=== PATIENT | male | born 1940 | race Caucasian/White ===

== ENCOUNTER 2018-01-20 15:40 | Emergency (ER) | payer MEDICARE ==
[2018-01-20] MEDS ORDERED: Albuterol/Ipratropium NEB.SOL* Albuterol 2.5 MG/Ipratropium 0.5 MG 3 ML INH ONE (15:54)
--- OUTSIDE RECORDS SUMMARY | 2018-01-20 15:54 | XMS REPORT ---
:1940 External Reference #:[id number] Author Organization [facility] 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 Active Onset: 01/15/2012 Mixed hyperlipidemia Gal Stover M.D. Active Onset: 01/15/2012 Benign prostatic hypertrophy without Gal Stover M.D. Active outflow obstruction Onset: 01/15/2012 Low back pain Gal Stover M.D. Active Onset: 01/15/2012 Peptic reflux disease Gal Stover M.D. Active Onset: 01/16/2012 Allergic rhinitis Gal Stover M.D. 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 Active Onset: 10/03/2012 Osteoarthritis Gal Stover M.D. Active Onset: 10/03/2012 Chronic obstructive lung disease Gal Stover M.D. Active Onset: 03/29/2015 Chronic conjunctivitis Gal Stover M.D. Active Onset: 05/10/2015 Hearing loss Gal Stover M.D. Active Onset: 06/22/2015 Essential hypertension Gal Stover M.D. Active Family History Date Family Member(s) Problem(s) Comments Children None Siblings 4 First Sister 75 First Sister Unknown Second Sister 73 Second Sister Unknown Third Sister 70 Third Sister Cancer Fourth Sister heart issues Fourth Sister 65 Fourth Sister Obesity Social History Type Date Description Comments Marital Status Legal Status: Cigarette Use Current Cigarette Smoker pt has been smoking a pack a day for 50 years ETOH Use Occasionally consumes alcohol Smoking Patient is a current smoker, smokes every day Daily Caffeine Consumes on average 2 cups of regular coffee per day Allergies, Adverse Reactions, Alerts Date Description Reaction Status Severity Comments 07/19/2012 Sulfa Antibiotics active 10/07/2014 Tobramycin active 01/16/2012 NKDA inactive 01/16/2012 NKDA inactive Medications Medication Date Status Form Strength Qnty SIG Indications Ordering Provider Augmentin 01/15/ Hx Tablets 875-125mg 20tabs 1 tab by J20.9 Ck, 2018 - mouth Gal Gutiérrez, 01/24/ twice a M.D. 2018 day Prednisone 12/20/ Active Tablets 20mg 90tabs 40 mg by J44.9 Ck, 2018 mouth Gal Gutiérrez, daily 4 M.D. days,30 mGx3d,20 mgx2d, Then 10 MG Daily Betamethasone 12/05/ Active Cream 0.05% 45gm apply to L20.9 Ck Dipropionate 2018 affected Gal Gutiérrez, area ( M.D. Face) three times a day as needed Simvastatin 03/27/ Active Tablets 40mg 90tabs 1 by mouth E78.2 Ck, 2017 every Ahmad M., night M.D. Metoprolol 11/16/ Active Tablets 100mg 180tab 1 tab by I10 Ck Tartrate 2017 s mouth Gal Gutiérrez, every day Nelly Combivent 10/02/ Active Aerosol 20-100mcg/ 12gm 1 by mouth R06.02 Ck , Respimat 2017 Act four times Gal Gutiérrez, a day Nelly J44.1 R05 Naproxen 07/11/2016 Active Tablets 500mg 60tabs 1 tab by Ck, Ahmad mouth twice a M., MLuisDLuis day as needed Losartan 03/31/2014 Active Tablets 100-25mg 90tabs tab one by I10 Gal Stover Potassium/Hydr mouth every M.Nelly ochlorothiazid in the e morning R60.0 I87.2 Amlodipine 01/16/2012 Active Tablets 10mg 90tabs 1 by mouth I10 Ck, Besylate every day Gal Gutiérrez M.D. Omeprazole 01/16/[address] 20mg 90caps 1 by mouth K21.0 Ck, every day Gal Gutiérrez M.D. K30 Aspir-81 01/16/[address] 81mg 1 by mouth I10 Ck, every morning Gal Gutiérrez M.D. Augmentin 12/20/2017 - Hx Tablets 875-125 20t 1 tab by mouth Chacho Stover, 12/30/2017 mg abs twice a day Gal Gutiérrez M.D. Ceftriaxone 12/20/2017 - Hx Solution 1gm injection Chacho Stover, Sodium 12/21/2017 Rec intramuscular r Gal buttock x1 Nelly Gutiérrez Solu-Medrol 12/20/2017 - Hx Solution 125mg 1un given iv Chacho Stover, 12/21/2017 Rec its Gal Gutiérrez M.D. Keflex 12/05/2017 - Hx Capsules 500mg 30c 1 by mouth Chacho Stover, 12/15/2017 aps three times a Ahmad day Nelly Gutiérrez Prednisone 12/05/2017 - Hx Tablets 20mg 18t 3 tab by mouth Chacho Stover, 12/14/2017 abs daily 3 days, Ahmad then 2 tab Nelly Gutiérrez daily x 3 d , then 1 tab daily 3d Ciprofloxacin 06/25/2017 - Hx Tablets 500mg 20t tab one by J20.9 [facility], HCL 07/05/2017 abs mouth twice a Ahmad day Nury Gutiérrez. Gentamicin 06/25/2017 - Hx Solution 0.3% 10c 2 drops both H10.8 Ck, Sulfate 09/17/2017 c eyes three 9 Ahmad times a day for Nelly Gutiérrez 5-7 days Fluconazole 04/06/2017 - Hx Tablets 100mg 20t [address] [facility], 04/16/2017 abs twice a day Ahmad Nury Gutiérrez. Levofloxacin 03/26/2017 - Hx Tablets 500mg 10t tab 1 by mouth [address].9 [facility], 04/05/2017 abs every day Gal Gutiérrez M.D. Prednisone 03/26/2017 - Hx Tablets 10mg 18t tab one by J20.9 [facility], 09/17/2017 abs mouth three Ahmad times a day x 3 Nelly Gutiérrez days; tab one by mouth twice a day x 3 days; tab one by mouth every day x 3 days R06.2 R06.02 Soma 07/11/2016 - Hx Tablets 350mg 60tabs [address] [facility], 09/17/2016 mouth twice Ahmad M., a day as M.D. needed Prednisone 07/11/2016 - Hx Tablets 20mg 18tabs [address] [facility], 07/21/2016 mouth daily Ahmad MLuis, 3 days, M.D. then 2 tab daily x 3 d , then 1 tab daily 3d Advair Diskus 04/27/2016 - Hx Aerosol 250-50mcg/ 3Mdi [address] [facility], 09/17/2016 Dose twice a day 2 aGl Gutiérrez M.D. J44.1 R05 Prednisone 12/10/2015 - Hx Tablets 20mg 50tabs 2 tab by mouth daily [address] [facility], 12/26/2015 days,30x3d,20x2d,10x7d Gal Gutiérrez M.D. J20.9 Ciprodex 07/26/2015 - Hx Suspension 0.3-0.1% 7.500ml 2 drops H10.023 Ck, 07/26/2015 both Ahmad M., eyes M.D. three times a day Ciprofloxacin 07/26/2015 - Hx Solution 0.3% 10ml [address] [facility], HCL 07/30/2015 drops Ahmad M., both M.D. eyes three times a day Prednisone 07/19/2015 - Hx Tablets 20mg 50tabs 2 tab by R06.02 Ck, 08/04/2015 mouth Ahmad M., daily 4 M.D. days,30x 3d,20x2d ,10x7d J44.9 Amoxicillin/Clavulanate 07/19/2015 - Hx Tablets 875-125mg 20tabs 1 tab by Kc, Potassium 12/20/2015 mouth Ahmad twice a M., M.D. day Acetaminophen-Codeine #3 07/19/2015 - Hx Tablets 300-30mg 90tabs [address] [facility], 09/17/2016 mouth 5 Ahmad every 4 M., M.D. hours as needed Amoxicillin 06/22/2015 - Hx Tablets 500mg 40tabs [address] [facility], 07/02/2015 mouth 1. Ahmad twice a 41 M., M.D. day J44.9 Prednisone 06/22/2015 - Hx Tablets 20mg 8tabs [address] [facility], Ahmad 07/08/2015 mouth daily 4 M., M.D. days J44.9 Amoxicillin 03/29/2015 - Hx Tablets 500mg 40tabs [address] [facility] , Ahmad 04/08/2015 twice a day M., M.D. 461.8 Prednisone 03/29/2015 - Hx Tablets 20mg 50tabs 2 tab by mouth daily [address] [facility], 04/14/2015 days,30x3d,20x2d,10x7d Ahmad M., M.D. 786.05 461.8 Amoxicillin 12/29/2014 - Hx Tablets 500mg 40tabs [address] [facility] , 01/08/2015 twice a Ahmad M., day M.D. Vitamin D3 High 10/12/2014 - Hx Capsules 1000Unit OTC tab one by E55.9 [facility], Potency 09/17/2016 mouth Ahmad M., every day M.D. Tobramycin 10/01/2014 - Hx Solution 0.3% 5ml 2 drops 372.39 Ck, 10/07/2014 both eyes Ahmad M., three M.D. times a day Cheratussin ac 08/26/2013 - Hx Syrup 100-10mg/ 500ml [address] [facility], 09/11/2013 5ML mouth Ahmad M., every 4 M.D. hours as needed Combivent 08/26/2013 - Hx Aerosol 20-100mcg 4units [address] [facility], Respimat 04/27/2016 /Act four times Gal Bui., a day M.D. J44.1 R05 Prednisone 07/31/2013 - Hx Tablets 20mg 20tabs 2 tab by mouth daily [address] [facility], 08/16/2013 days,30x3d,20x2d,10x7d Gal Gutiérrez M.D. 786.05 461.8 Biaxin 10/03/2012 - Hx Tablets 500mg 20tabs 1 tab by mouth 461.8 [facility] a day Hao.MarlaDLuis x10 days 491.21 462 Prednisone 10/03/2012 - Hx Tablets 20mg 8tabs 2 tab by 786.05 Ck, [facility] mouth daily 4 M., M.D. days 478.19 491.21 Instaflex 07/19/2012 - 10/03/2011 Hx 1 PO qd 724.2 CkGal hercules M.D. 715.90 Biaxin 07/19/2012 - Hx Tablets 500mg 20tabs 1 tab by mouth 466.0 Ck , [facility] 07[facility]29[facility]2012 twice a day Marla MLuisDLuis x10 days 461.8 382.9 Prednisone 07/19/2012 - Hx Tablets 20mg 50tabs 2 tab by mouth daily 4 466.0 Ck, 03/17/2014 days,30x3d,20x2d,10x7d Gal Gutiérrez M.D. 786.05 461.8 Combivent 07/19/2012 - Hx Aerosol 18-103mcg/Act 14.700gm 2 four 786.05 Ck, 08/26/2013 times a Gal Gutiérrez, day M.D. 491.21 786.2 Folic Acid 07/04/2012 - Hx Tablets 800mcg 30tabs 1 po qd 477.8 Ck, Trentmad 10/03/2011 Nelly Gutiérrez 530.11 Vitamin B-12 07/04/2012 - Hx Tablets 500mcg 1 by mouth 401.1 Ck, Ahmad 10/03/2011 every day Nelly Gutiérrez Natural 272.2 281.1 Zithromax 04/17/2012 - Hx Tablets 250mg 1Pack 1 pack use 461.8 Ck, Z-Markell 04/22/2012 as directed Gal Gutiérrez M.D. Tobramycin 01/16/2012 - Hx Solution 0.3% 5ml 2 drop both 372.30 Ck, Sulfate 01/26/2012 eyes bid 7 Gal Gutiérrez, days M.D. Simvastatin 01/16/2012 - Hx Tablets 80mg 90tabs 1 tab by E78.2 Ck, 03/27/2017 mouth every Gal Gutiérrez, night M.D. Losartan 01/16/2012 - Hx Tablets 100mg 90tabs 1 by mouth 401.1 Ck, Potassium 03/31/2014 every day Gal Gutiérrez M.D. Metoprolol 01/16/2012 - Hx Tablets 100mg 180tabs 1 by mouth I10 Ck, Tartrate 11/16/2016 twice a day Gal Gutiérrez M.D. Loratadine 01/16/2012 - Hx Tablets 10mg 477.8 Ck, Allergy Relief 10/03/2011 Dispers Gal Gutiérrez M.D. Tobradex - Hx Ointment 0.3-0.1% 372.39 Unknown 03/22/2015 Medications Administered in Office Medication Date Status Form Strength Qnty SIG Indications Ordering Provider Solu-Medrol Administered Injection Ck, 125MG 018 Gal Gutiérrez M.D. Rocephin 250 Administered Injection Ck, 018 Gal Gutiérrez M.D. Admin Of Administered Injection Ck, Pneumovax 015 Gal Gutiérrez M.D. B12 Administered Injection Ck, 011 Gal Gutiérrez M.D. Immunizations CPT Code Status Date Vaccine Lot # [id number] Given 07/11/2016 Flu Vaccine 3+Yrs Old(Fluzone) 32293 Given 12/02/2015 Zoster Shingles Vaccine For Injection [id number] Given 08/19/2015 Flu Vaccine 3+Yrs Old(Fluzone) 42820 Given 08/19/2015 Pneumovax [id number] 28984 Given 08/19/2015 Flu Vaccine [id number] 07138 Given 06/27/2014 Flu Vaccine [id number] Given 07/31/2013 Flu Vaccine 3+Yrs Old(Fluzone) [id number] Given 07/04/2012 Flu Vaccine 3+Yrs Old(Fluzone) [id number] 60542 Given 09/16/2009 Admin Of Influenza [id number] Given 08/08/2006 Flu Vaccine 58775 Given 07/31/2003 Pneumovax [id number] Vital Signs Date Vital Result Comment 01/15/2018 BP Systolic 128 mmHg BP Diastolic 58 mmHg Height 68 inches 5'8" Weight 155.00 lb BMI (Body Mass Index) 23.6 kg/m2 Heart Rate 69 /min Body Temperature 97.0 F Respiratory Rate 18 /min 12/20/2017 BP Systolic 124 mmHg BP Diastolic 60 mmHg Height 68 inches 5'8" Weight 162.00 lb BMI (Body Mass Index) 24.6 kg/m2 Heart Rate 64 /min Body Temperature 96.8 F Respiratory Rate 18 /min 12/13/2017 BP Systolic 118 mmHg BP Diastolic 70 mmHg Height 68 inches 5'8" Weight 162.00 lb BMI (Body Mass Index) 24.6 kg/m2 Heart Rate 72 /min Body Temperature 96.3 F Respiratory Rate 16 /min 12/05/2017 BP Systolic 126 mmHg BP Diastolic 58 mmHg Height 68 inches 5'8" Weight 157.00 lb BMI (Body Mass Index) 23.9 kg/m2 Heart Rate 66 /min Respiratory Rate 18 /min 09/19/2017 BP Systolic 130 mmHg BP Diastolic 70 mmHg Height 68 inches 5'8" Weight 156.00 lb BMI (Body Mass Index) 23.7 kg/m2 Heart Rate 76 /min Respiratory Rate 18 /min 06/25/2017 Weight 157.00 lb 04/06/2017 BP Systolic 130 mmHg BP Diastolic 56 mmHg Height 68 inches 5'8" Weight 156.00 lb BMI (Body Mass Index) 23.7 kg/m2 Heart Rate 56 /min Respiratory Rate 16 /min 03/26/2017 BP Systolic 140 mmHg BP Diastolic 69 mmHg Height 68 inches 5'8" Weight 156.00 lb BMI (Body Mass Index) 23.7 kg/m2 Heart Rate 72 /min Body Temperature 98.8 F Respiratory Rate 16 /min 03/23/2017 BP Systolic 112 mmHg BP Diastolic 58 mmHg Height 68 inches 5'8" Weight 156.00 lb BMI (Body Mass Index) 23.7 kg/m2 Heart Rate 71 /min Respiratory Rate 16 /min 11/16/2016 BP Systolic 134 mmHg BP Diastolic 68 mmHg Height 68 inches 5'8" Weight 158.00 lb BMI (Body Mass Index) 24.0 kg/m2 Heart Rate 63 /min Respiratory Rate 16 /min 09/22/2016 BP Systolic 122 mmHg BP Diastolic 64 mmHg Height 68 inches 5'8" Weight 164.00 lb BMI (Body Mass Index) 24.9 kg/m2 Heart Rate 63 /min Respiratory Rate 18 /min 07/11/2016 BP Systolic 132 mmHg BP Diastolic 66 mmHg Height 68 inches 5'8" Weight 162.00 lb BMI (Body Mass Index) 24.6 kg/m2 Heart Rate 76 /min Respiratory Rate 20 /min 04/27/2016 BP Systolic 126 mmHg BP Diastolic 62 mmHg Height 68 inches 5'8" Weight 158.00 lb BMI (Body Mass Index) 24.0 kg/m2 Heart Rate 76 /min Respiratory Rate 20 /min 03/30/2016 BP Systolic 128 mmHg BP Diastolic 52 mmHg Height 68 inches 5'8" Weight 156.00 lb BMI (Body Mass Index) 23.7 kg/m2 Heart Rate 76 /min Respiratory Rate 17 /min 02/03/2016 BP Systolic 108 mmHg BP Diastolic 50 mmHg Height 68 inches 5'8" Weight 160.00 lb BMI (Body Mass Index) 24.3 kg/m2 Heart Rate 66 /min Respiratory Rate 20 /min 12/10/2015 BP Systolic 117 mmHg BP Diastolic 64 mmHg Height 68 inches 5'8" Weight 165.00 lb BMI (Body Mass Index) 25.1 kg/m2 Heart Rate 65 /min Body Temperature 97.3 F Respiratory Rate 18 /min 09/24/2015 BP Systolic 121 mmHg BP Diastolic 56 mmHg Height 68 inches 5'8" Weight 162.00 lb BMI (Body Mass Index) 24.6 kg/m2 Heart Rate 62 /min Respiratory Rate 18 /min 08/19/2015 BP Systolic 131 mmHg BP Diastolic 71 mmHg Height 68 inches 5'8" Weight 158.00 lb BMI (Body Mass Index) 24.0 kg/m2 Heart Rate 55 /min Respiratory Rate 18 /min 07/26/2015 BP Systolic 121 mmHg BP Diastolic 68 mmHg Height 68 inches 5'8" Weight 155.00 lb BMI (Body Mass Index) 23.6 kg/m2 Heart Rate 61 /min Body Temperature 96.6 F Respiratory Rate 18 /min 07/19/2015 BP Systolic 133 mmHg BP Diastolic 66 mmHg Height 68 inches 5'8" Weight 156.00 lb BMI (Body Mass Index) 23.7 kg/m2 Heart Rate 81 /min Body Temperature 98.2 F Respiratory Rate 18 /min 06/22/2015 BP Systolic 128 mmHg BP Diastolic 66 mmHg Height 68 inches 5'8" Weight 158.00 lb BMI (Body Mass Index) 24.0 kg/m2 Heart Rate 76 /min Body Temperature 95.0 F Respiratory Rate 18 /min 05/25/2015 BP Systolic 116 mmHg BP Diastolic 58 mmHg Height 68 inches 5'8" Weight 158.00 lb BMI (Body Mass Index) 24.0 kg/m2 Heart Rate 62 /min Respiratory Rate 17 /min 05/10/2015 BP Systolic 131 mmHg BP Diastolic 69 mmHg Height 68 inches 5'8" Weight 156.00 lb BMI (Body Mass Index) 23.7 kg/m2 Heart Rate 57 /min Body Temperature 97.2 F Respiratory Rate 14 /min 03/29/2015 BP Systolic 143 mmHg BP Diastolic 65 mmHg Height 68 inches 5'8" Weight 157.00 lb BMI (Body Mass Index) 23.9 kg/m2 Heart Rate 60 /min Body Temperature 97.5 F Respiratory Rate 20 /min 12/29/2014 BP Systolic 129 mmHg BP Diastolic 73 mmHg Height 68 inches 5'8" Weight 155.00 lb BMI (Body Mass Index) 23.6 kg/m2 Heart Rate 63 /min Body Temperature 97.4 F Respiratory Rate 16 /min 10/07/2014 BP Systolic 152 mmHg BP Diastolic 67 mmHg BP Systolic Recheck 142 mmHg BP Diastolic Recheck 68 mmHg Height 68 inches 5'8" Weight 161.00 lb BMI (Body Mass Index) 24.5 kg/m2 Heart Rate 69 /min Respiratory Rate 15 /min 10/01/2014 BP Systolic 144 mmHg BP Diastolic 68 mmHg Height 68 inches 5'8" Weight 164.00 lb BMI (Body Mass Index) 24.9 kg/m2 Heart Rate 59 /min Body Temperature 96.2 F Respiratory Rate 20 /min 09/23/2014 BP Systolic 131 mmHg BP Diastolic 63 mmHg Height 68 inches 5'8" Weight 166.00 lb BMI (Body Mass Index) 25.2 kg/m2 Heart Rate 58 /min Respiratory Rate 12 /min 05/07/2014 BP Systolic 129 mmHg BP Diastolic 69 mmHg Height 68 inches 5'8" Weight 162.00 lb BMI (Body Mass Index) 24.6 kg/m2 Heart Rate 57 /min Respiratory Rate 20 /min 04/14/2014 BP Systolic 128 mmHg BP Diastolic 70 mmHg Height 68 inches 5'8" Weight 166.00 lb BMI (Body Mass Index) 25.2 kg/m2 Heart Rate 61 /min Body Temperature 96.1 F Respiratory Rate 20 /min 04/03/2014 BP Systolic 133 mmHg BP Diastolic 68 mmHg Height 68 inches 5'8" Weight 168.00 lb BMI (Body Mass Index) 25.5 kg/m2 Heart Rate 60 /min Respiratory Rate 20 /min 03/31/2014 BP Systolic 149 mmHg BP Diastolic 69 mmHg Height 68 inches 5'8" Weight 168.00 lb BMI (Body Mass Index) 25.5 kg/m2 Heart Rate 62 /min Body Temperature 96.1 F Respiratory Rate 22 /min 11/18/2013 BP Systolic 162 mmHg BP Diastolic 76 mmHg Height 68 inches 5'8" Weight 160.00 lb BMI (Body Mass Index) 24.3 kg/m2 Heart Rate 67 /min Body Temperature 96.9 F 09/24/2013 BP Systolic 136 mmHg BP Diastolic 58 mmHg Height 68 inches 5'8" Weight 160.00 lb BMI (Body Mass Index) 24.3 kg/m2 Heart Rate 67 /min Respiratory Rate 20 /min 08/26/2013 BP Systolic 145 mmHg BP Diastolic 69 mmHg Height 68 inches 5'8" Weight 161.00 lb BMI (Body Mass Index) 24.5 kg/m2 Heart Rate 59 /min Body Temperature 98.1 F Respiratory Rate 22 /min 07/31/2013 BP Systolic 144 mmHg BP Diastolic 65 mmHg Height 68 inches 5'8" Weight 163.00 lb BMI (Body Mass Index) 24.8 kg/m2 Heart Rate 66 /min Body Temperature 97.1 F Respiratory Rate 22 /min 04/07/2013 BP Systolic 146 mmHg BP Diastolic 78 mmHg Height 68 inches 5'8" Weight 165.00 lb BMI (Body Mass Index) 25.1 kg/m2 Heart Rate 59 /min Respiratory Rate 20 /min 10/17/2012 BP Systolic 122 mmHg BP Diastolic 62 mmHg Height 68 inches 5'8" Weight 168.00 lb BMI (Body Mass Index) 25.5 kg/m2 Heart Rate 67 /min Respiratory Rate 18 /min 10/03/2012 BP Systolic 140 mmHg BP Diastolic 70 mmHg Height 68 inches 5'8" Weight 167.00 lb BMI (Body Mass Index) 25.4 kg/m2 Heart Rate 73 /min Body Temperature 96.9 F Respiratory Rate 14 /min 07/19/2012 BP Systolic 142 mmHg BP Diastolic 64 mmHg Height 68 inches 5'8" Weight 165.00 lb BMI (Body Mass Index) 25.1 kg/m2 Heart Rate 60 /min Respiratory Rate 12 /min 07/04/2012 BP Systolic 140 mmHg BP Diastolic 64 mmHg Height 68 inches 5'8" Weight 166.00 lb BMI (Body Mass Index) 25.2 kg/m2 Heart Rate 62 /min Respiratory Rate 16 /min 04/17/2012 BP Systolic 158 mmHg BP Diastolic 72 mmHg Height 68 inches 5'8" Weight 160.00 lb BMI (Body Mass Index) 24.3 kg/m2 Last Menstrual Period 0 Respiratory Rate 14 /min 04/04/2012 BP Systolic 145 mmHg BP Diastolic 78 mmHg Height 68 inches 5'8" Weight 160.00 lb BMI (Body Mass Index) 24.3 kg/m2 Heart Rate 80 /min Last Menstrual Period 0 Respiratory Rate 14 /min 01/16/2012 BP Systolic 180 mmHg BP Diastolic 90 mmHg BP Systolic Recheck 158 mmHg BP Diastolic Recheck 77 mmHg Height 68 inches 5'8" Weight 162.00 lb BMI (Body Mass Index) 24.6 kg/m2 Heart Rate 76 /min Last Menstrual Period 0 Respiratory Rate 14 /min Results Test Date Test Result H/L Range Note CBC Auto Diff 12/13/2017 White Blood Count 15.5 10^3/uL High 3.5-10.8 Red Blood Count 5.14 10^6/uL 4.0-5.4 Hemoglobin 16.1 g/dL 14.0-18.0 Hematocrit 48 % 42-52 Mean Corpuscular Volume 93 fL 80-94 Mean Corpuscular Hemoglobin 31 pg 27-31 Mean Corpuscular HGB Conc 34 g/dL 31-36 Red Cell Distribution Width 14 % 10.5-15 Platelet Count 287 10^3/uL 150-450 1 Mean Platelet Volume 6.8 um3 Low 7.4-10.4 Abs Neutrophils 13.6 10^3/uL High 1.5-7.7 Abs Lymphocytes 1.3 10^3/uL 1.0-4.8 Abs Monocytes 0.6 10^3/uL 0-0.8 Abs Eosinophils 0 10^3/uL 0-0.6 Abs Basophils 0 10^3/uL 0-0.2 Abs Nucleated RBC 0 10^3/uL Granulocyte % 87.6 % High 38-83 Lymphocyte % 8.1 % Low 25-47 Monocyte % 4.2 % 0-7 Eosinophil % 0 % 0-6 Basophil % 0.1 % 0-2 Nucleated Red Blood Cells % 0.1 Comp Metabolic Panel 12/13/2017 Sodium 137 mmol/L Low 139-145 Potassium 3.7 mmol/L 3.5-5.0 Chloride 98 mmol/L Low 101-111 Co2 Carbon Dioxide 27 mmol/L 22-32 Anion Gap 12 mmol/L High 2-11 Glucose 114 mg/dL High 70-100 Blood Urea Nitrogen 23 mg/dL 6-24 Creatinine 0.90 mg/dL 0.67-1.17 BUN/Creatinine Ratio 25.6 High 8-20 Calcium 10.0 mg/dL 8.6-10.3 Total Protein 7.1 g/dL 6.4-8.9 Albumin 4.3 g/dL 3.2-5.2 Globulin 2.8 g/dL 2-4 Albumin/Globulin Ratio 1.5 1-3 Total Bilirubin 1.20 mg/dL High 0.2-1.0 Alkaline Phosphatase 50 U/L 34-104 Alt 25 U/L 7-52 Ast 25 U/L 13-39 Egfr Non- 81.8 >60 Egfr 105.2 >60 2 Laboratory test finding 12/13/2017 Erythrocyte Sed Rate 5 mm/Hr 0-40 3 Lyme Disease Serology Negative Negative 4 CBC Auto Diff 09/19/2017 White Blood Count 8.6 10^3/uL 3.5-10.8 Red Blood Count 4.81 10^6/uL 4.0-5.4 Hemoglobin 14.9 g/dL 14.0-18.0 Hematocrit 44 % 42-52 Mean Corpuscular Volume 91 fL 80-94 Mean Corpuscular Hemoglobin 31 pg 27-31 Mean Corpuscular HGB Conc 34 g/dL 31-36 Red Cell Distribution Width 14 % 10.5-15 Platelet Count 338 10^3/uL 150-450 Mean Platelet Volume 7 um3 Low 7.4-10.4 Abs Neutrophils 4.9 10^3/uL 1.5-7.7 Abs Lymphocytes 1.7 10^3/uL 1.0-4.8 Abs Monocytes 1.3 10^3/uL High 0-0.8 Abs Eosinophils 0.6 10^3/uL 0-0.6 Abs Basophils 0.1 10^3/uL 0-0.2 Abs Nucleated RBC 0 10^3/uL Granulocyte % 57.3 % 38-83 Lymphocyte % 20.0 % Low 25-47 Monocyte % 15.1 % High 1-9 Eosinophil % 6.7 % High 0-6 Basophil % 0.9 % 0-2 Nucleated Red Blood Cells % 0 Comp Metabolic Panel 09/19/2017 Sodium 134 mmol/L 133-145 Potassium 4.1 mmol/L 3.5-5.0 Chloride 99 mmol/L Low 101-111 Co2 Carbon Dioxide 27 mmol/L 22-32 Anion Gap 8 mmol/L 2-11 Glucose 96 mg/dL 70-100 Blood Urea Nitrogen 16 mg/dL 6-24 Creatinine 1.04 mg/dL 0.67-1.17 BUN/Creatinine Ratio 15.4 8-20 Calcium 9.3 mg/dL 8.6-10.3 Total Protein 7.1 g/dL 6.4-8.9 Albumin 4.0 g/dL 3.2-5.2 Globulin 3.1 g/dL 2-4 Albumin/Globulin Ratio 1.3 1-3 Total Bilirubin 1.20 mg/dL High 0.2-1.0 Alkaline Phosphatase 58 U/L 34-104 Alt 15 U/L 7-52 Ast 23 U/L 13-39 Egfr Non- 69.3 >60 Egfr 89.1 >60 5 Laboratory test finding 09/19/2017 TSH (Thyroid Stim Horm) 1.84 mcIU/mL 0.34-5.60 6 Lipid Profile 09/19/2017 Triglycerides 94 mg/dL 7 (Trig/Chol/HDL) Cholesterol 152 mg/dL 8 HDL Cholesterol 43.3 mg/dL 9 LDL Cholesterol 90 mg/dL 10 Laboratory test finding 09/19/2017 Vitamin D Total 25(Oh) 24.8 ng/mL 20- 50 11 Magnesium 1.7 mg/dL Low 1.9-2.7 12 PSA Free And Total 09/19/2017 PSA Total 4.3 ng/mL <=6.5 PSA Free 0.9 ng/mL PSA Free/Total 0.21 ratio 13 CBC Auto Diff 03/23/2017 White Blood Count 10.9 10^3/uL High 3.5-10.8 Red Blood Count 4.61 10^6/uL 4.0-5.4 Hemoglobin 14.8 g/dL 14.0-18.0 Hematocrit 45 % 42-52 Mean Corpuscular Volume 97 fL High 80-94 Mean Corpuscular Hemoglobin 32 pg High 27-31 Mean Corpuscular HGB Conc 33 g/dL 31-36 Red Cell Distribution Width 13 % 10.5-15 Platelet Count 269 10^3/uL 150-450 Mean Platelet Volume 7 um3 Low 7.4-10.4 Abs Neutrophils 7.4 10^3/uL 1.5-7.7 Abs Lymphocytes 1.8 10^3/uL 1.0-4.8 Abs Monocytes 1.2 10^3/uL High 0-0.8 Abs Eosinophils 0.3 10^3/uL 0-0.6 Abs Basophils 0.1 10^3/uL 0-0.2 Abs Nucleated RBC 0 10^3/uL Granulocyte % 67.8 % 38-83 Lymphocyte % 16.8 % Low 25-47 Monocyte % 11.4 % High 1-9 Eosinophil % 3.0 % 0-6 Basophil % 1.0 % 0-2 Nucleated Red Blood Cells % 0 Comp Metabolic Panel 03/23/2017 Sodium 128 mmol/L Low 133-145 Potassium 4.1 mmol/L 3.5-5.0 Chloride 95 mmol/L Low 101-111 Co2 Carbon Dioxide 26 mmol/L 22-32 Anion Gap 7 mmol/L 2-11 Glucose 92 mg/dL 70-100 Blood Urea Nitrogen 22 mg/dL 6-24 Creatinine 1.08 mg/dL 0.67-1.17 BUN/Creatinine Ratio 20.4 High 8-20 Calcium 9.2 mg/dL 8.6-10.3 Total Protein 7.0 g/dL 6.4-8.9 Albumin 4.1 g/dL 3.2-5.2 Globulin 2.9 g/dL 2-4 Albumin/Globulin Ratio 1.4 1-3 Total Bilirubin 1.50 mg/dL High 0.2-1.0 Alkaline Phosphatase 56 U/L 34-104 Alt 14 U/L 7-52 Ast 22 U/L 13-39 Egfr Non- 66.3 >60 Egfr 85.3 >60 14 Laboratory test 03/23/2017 TSH (Thyroid Stim Horm) 1.55 mcIU/mL 0.34- 5.60 15 finding Lipid Profile 03/23/2017 Triglycerides 87 mg/dL 16 (Trig/Chol/HDL) Cholesterol 121 mg/dL 17 HDL Cholesterol 37.8 mg/dL 18 LDL Cholesterol 66 mg/dL 19 Laboratory test finding 03/23/2017 Vitamin D Total 25(Oh) 31.4 ng/mL 30- 50 20 Magnesium 1.5 mg/dL Low 1.9-2.7 21 PSA Diagnostic 3.169 ng/mL 0-4.000 22 Laboratory test 10/10/2016 Surgical Pathology SEE RESULT BELOW 23, 24 finding CBC Auto Diff 09/22/2016 White Blood Count 8.9 10^3/uL 3.5-10.8 Red Blood Count 4.64 10^6/uL 4.0-5.4 Hemoglobin 14.6 g/dL 14.0-18.0 Hematocrit 44 % 42-52 Mean Corpuscular Volume 94 fL 80-94 Mean Corpuscular Hemoglobin 31 pg 27-31 Mean Corpuscular HGB Conc 33 g/dL 31-36 Red Cell Distribution Width 14 % 10.5-15 Platelet Count 273 10^3/uL 150-450 Mean Platelet Volume 8 um3 7.4-10.4 Abs Neutrophils 5.1 10^3/uL 1.5-7.7 Abs Lymphocytes 1.9 10^3/uL 1.0-4.8 Abs Monocytes 1.2 10^3/uL High 0-0.8 Abs Eosinophils 0.7 10^3/uL High 0-0.6 Abs Basophils 0.1 10^3/uL 0-0.2 Abs Nucleated RBC 0.01 10^3/uL Granulocyte % 57.0 % 38-83 Lymphocyte % 21.3 % Low 25-47 Monocyte % 13.1 % High 1-9 Eosinophil % 7.3 % High 0-6 Basophil % 1.3 % 0-2 Nucleated Red Blood Cells % 0.1 Comp Metabolic Panel 09/22/2016 Sodium 135 mmol/L 133-145 Potassium 3.7 mmol/L 3.5-5.0 Chloride 98 mmol/L Low 101-111 Co2 Carbon Dioxide 30 mmol/L 22-32 Anion Gap 7 mmol/L 2-11 Glucose 98 mg/dL 70-100 Blood Urea Nitrogen 13 mg/dL 6-24 Creatinine 0.90 mg/dL 0.67-1.17 BUN/Creatinine Ratio 14.4 8-20 Calcium 9.2 mg/dL 8.6-10.3 Total Protein 6.6 g/dL 6.4-8.9 Albumin 3.9 g/dL 3.2-5.2 Globulin 2.7 g/dL 2-4 Albumin/Globulin Ratio 1.4 1-3 Total Bilirubin 1.00 mg/dL 0.2-1.0 Alkaline Phosphatase 57 U/L 34-104 Alt 17 U/L 7-52 Ast 24 U/L 13-39 Egfr Non- 82.0 >60 Egfr 105.5 >60 25 Laboratory test 09/22/2016 TSH (Thyroid Stim Horm) 1.44 mcIU/mL 0.34- 5.60 26 finding Lipid Profile 09/22/2016 Triglycerides 108 mg/dL 27 (Trig/Chol/HDL) Cholesterol 130 mg/dL 28 HDL Cholesterol 38.2 mg/dL 29 LDL Cholesterol 70 mg/dL 30 Laboratory test finding 09/22/2016 Vitamin D Total 25(Oh) 24.5 ng/mL Low 30-50 31 Magnesium 1.7 mg/dL Low 1.9-2.7 32 PSA Free And Total 09/22/2016 PSA Total 2.7 ng/mL <=6.5 PSA Free 0.7 ng/mL PSA Free/Total See Comment ratio 33 CBC Auto Diff 04/27/2016 White Blood Count 7.2 10^3/uL 3.5-10.8 Red Blood Count 4.70 10^6/uL 4.0-5.4 Hemoglobin 14.3 g/dL 14.0-18.0 Hematocrit 44 % 42-52 Mean Corpuscular Volume 93 fL 80-94 Mean Corpuscular Hemoglobin 31 pg 27-31 Mean Corpuscular HGB Conc 33 g/dL 31-36 Red Cell Distribution Width 14 % 10.5-15 Platelet Count 271 10^3/uL 150-450 Mean Platelet Volume 7 um3 Low 7.4-10.4 Abs Neutrophils 3.9 10^3/uL 1.5-7.7 Abs Lymphocytes 1.9 10^3/uL 1.0-4.8 Abs Monocytes 1.1 10^3/uL High 0-0.8 Abs Eosinophils 0.3 10^3/uL 0-0.6 Abs Basophils 0.1 10^3/uL 0-0.2 Abs Nucleated RBC 0 10^3/uL Granulocyte % 53.5 % 38-83 Lymphocyte % 26.3 % 25-47 Monocyte % 14.8 % High 1-9 Eosinophil % 4.1 % 0-6 Basophil % 1.3 % 0-2 Nucleated Red Blood Cells % 0 Comp Metabolic Panel 04/27/2016 Sodium 132 mmol/L Low 133-145 Potassium 4.0 mmol/L 3.5-5.0 Chloride 99 mmol/L Low 101-111 Co2 Carbon Dioxide 26 mmol/L 22-32 Anion Gap 7 mmol/L 2-11 Glucose 102 mg/dL High 70-100 Blood Urea Nitrogen 14 mg/dL 6-24 Creatinine 0.87 mg/dL 0.67-1.17 BUN/Creatinine Ratio 16.1 8-20 Calcium 9.2 mg/dL 8.6-10.3 Total Protein 6.5 g/dL 6.4-8.9 Albumin 3.8 g/dL 3.2-5.2 Globulin 2.7 g/dL 2-4 Albumin/Globulin Ratio 1.4 1-3 Total Bilirubin 0.80 mg/dL 0.2-1.0 Alkaline Phosphatase 51 U/L 34-104 Alt 16 U/L 7-52 Ast 23 U/L 13-39 Egfr Non- 85.3 >60 Egfr 109.7 >60 34 Laboratory test finding 04/27/2016 TSH (Thyroid Stim 1.59 mcIU/mL 0.34- 5.60 35 Horm) Laboratory test finding 04/27/2016 Vitamin D Total 25(Oh) 31.3 ng/mL 30- 50 36 PSA Diagnostic 4.271 ng/mL High 0-4.000 37 Magnesium 1.6 mg/dL Low 1.9-2.7 38 Lipid Profile (Trig/Chol/HDL) 04/27/2016 Triglycerides 52 mg/dL 39 Cholesterol 111 mg/dL 40 HDL Cholesterol 40.6 mg/dL 41 LDL Cholesterol 60 mg/dL 42 Laboratory test finding 09/24/2015 TSH (Thyroid Stim Horm) 2.34 ?IU/mL 0.34-5.60 Vitamin D Total 25(Oh) 31.9 ng/mL 30-50 Magnesium 1.7 mg/dL Low 1.9-2.7 Lipid Profile (Trig/Chol/HDL) 09/24/2015 Triglycerides 104 mg/dL 43 Cholesterol 130 mg/dL 44 HDL Cholesterol 36.6 mg/dL 45 LDL Cholesterol 73 mg/dL 46 Comp Metabolic Panel 09/24/2015 Sodium 133 mmol/L 133-145 Potassium 3.9 mmol/L 3.5-5.0 Chloride 97 mmol/L Low 101-111 Co2 Carbon Dioxide 28 mmol/L 22-32 Anion Gap 8 mmol/L 2-11 Glucose 87 mg/dL 70-100 Blood Urea Nitrogen 22 mg/dL 6-24 Creatinine 1.03 mg/dL 0.67-1.17 BUN/Creatinine Ratio 21.4 High 8-20 Calcium 9.6 mg/dL 8.6-10.3 Total Protein 7.1 g/dL 6.4-8.9 Albumin 4.4 g/dL 3.2-5.2 Globulin 2.7 g/dL 2-4 Albumin/Globulin Ratio 1.6 1-3 Total Bilirubin 1.40 mg/dL High 0.2-1.0 Alkaline Phosphatase 47 U/L 34-104 Alt 16 U/L 7-52 Ast 24 U/L 13-39 Egfr Non- 70.4 >60 Egfr 90.5 >60 47 CBC Auto Diff 09/24/2015 White Blood Count 9.4 10^3/uL 3.5-10.8 Red Blood Count 4.34 10^6/uL 4.0-5.4 Hemoglobin 13.6 g/dL Low 14.0-18.0 Hematocrit 42 % 42-52 Mean Corpuscular Volume 96 fL High 80-94 Mean Corpuscular Hemoglobin 31 pg 27-31 Mean Corpuscular HGB Conc 33 g/dL 31-36 Red Cell Distribution Width 14 % 10.5-15 Platelet Count 311 10^3/uL 150-450 Mean Platelet Volume 7 um3 Low 7.4-10.4 Abs Neutrophils 5.6 10^3/uL 1.5-7.7 Abs Lymphocytes 2.2 10^3/uL 1.0-4.8 Abs Monocytes 1.3 10^3/uL High 0-0.8 Abs Eosinophils 0.2 10^3/uL 0-0.6 Abs Basophils 0.1 10^3/uL 0-0.2 Abs Nucleated RBC 0 10^3/uL Granulocyte % 59.8 % 38-83 Lymphocyte % 23.3 % Low 25-47 Monocyte % 13.6 % High 1-9 Eosinophil % 2.4 % 0-6 Basophil % 0.9 % 0-2 Nucleated Red Blood Cells % 0 Comprehensive Metabolic Panel 05/10/2015 Glucose 86 mg/dL 74-106 BUN 11 mg/dL 7-18 Creatinine 1.0 mg/dL 0.6-1.3 Glom Filtration Rate, Estimate >60 mL/min >60 If >60 mL/min >60 48 BUN/Creat 11.0 ratio Sodium 135 mmol/L Low 136-145 Potassium 4.1 mmol/L 3.5-5.1 Chloride 96 mmol/L Low 98-107 Carbon Dioxide 30 mmol/L 21-32 Anion Gap 9 mEq/L 8-16 Calcium 9.2 mg/dL 8.5-10.1 Total Protein 7.1 g/dL 6.4-8.2 Albumin 3.8 g/dL 3.4-5.0 Globulin 3.3 g/dL 1.9-4.3 Alb/Glob 1.2 ratio Bilirubin,Total 0.9 mg/dL 0.2-1.0 Sgot/Ast 26 U/L 15-37 SGPT/Alt 34 U/L 12-78 Alkaline Phosphatase 62 U/L 45-117 Glycohemoglobin A1c 05/10/2015 Glycohemoglobin (A1c) 5.6 % 4.2-6.3 49 eAG 114 mg/dL LDL Cholesterol Profile 05/10/2015 Cholesterol 124 mg/dL < 200 50 Triglycerides 93 mg/dL < 150 51 HDL Cholesterol 39 mg/dL > 40 52 LDL-Cholesterol 66 mg/dL < 100 53 Laboratory test finding 05/10/2015 Thyroid Stim Hormone 1.51 uIU/mL 0.36- 3.74 Vitamin D,25-Hydroxy 39.9 ng/mL 30.0-100.0 54 Prostate Specific Antigen 2.79 ng/mL 55 CBC W/Automated Diff 05/10/2015 White Blood Count 9.1 K/uL 3.4-10.5 Red Blood Count 4.51 M/uL 4.20-5.80 Hemoglobin 14.8 gm/dL 12.8-17.0 Hematocrit 44.7 % 38.0-48.0 Mean Cell Volume 99.1 fl High 80.0-96.0 Mean Corpuscular HGB 32.8 pg 27.0-33.0 Mean Corpuscular HGB Conc 33.1 g/dL 31.7-36.0 Platelet Count 301 K/uL 150-400 Red Cell Distri Width SD 47.1 fl 36-51 Red Cell Distri Width %CV 13.3 % 11.6-15.8 Mean Platelet Volume 9.0 fL 6.6-10.6 Neut% 66.2 % 33.0-73.0 Lymph % 20.2 % 17.0-56.0 [place] % 12.2 % High 0.0-10.0 Eo% 1.0 % 0.0-5.0 Bas% 0.4 % 0.1-1.0 Neut# 6.04 K/uL 1.8-7.0 Lymph # 1.84 K/uL 1.8-7.0 [place] # 1.11 K/uL High 0.0-0.8 Eos # 0.09 K/uL 0.0-0.5 Baso # 0.04 K/uL Low 0.1-0.2 Comprehensive Metabolic Panel 10/07/2014 Sodium 136 mmol/L 133-145 Potassium 4.2 mmol/L 3.5-5.0 Chloride 100 mmol/L Low 101-111 Co2 Carbon Dioxide 29 mmol/L 22-32 Anion Gap 7 mmol/L 2-11 Glucose 100 mg/dL 70-100 Blood Urea Nitrogen 17 mg/dL 6-24 Creatinine 1.04 mg/dL 0.67-1.17 BUN/Creatinine Ratio 16.3 8-20 Calcium 9.2 mg/dL 8.6-10.3 Total Protein 7.2 g/dL 6.4-8.9 Albumin 4.4 g/dL 3.2-5.2 Globulin 2.8 g/dL 2-4 Albumin/Globulin Ratio 1.6 1-3 Total Bilirubin 1.00 mg/dL 0.2-1.0 Alkaline Phosphatase 54 U/L 34-104 Alt 21 U/L 7-52 Ast 23 U/L 13-39 Egfr Non- 69.8 >60 Egfr 89.8 >60 56 CBC W/Automated Diff 10/07/2014 White Blood Count 9.2 10^3/uL 4.8-10.8 Red Blood Count 4.70 10^6/uL 4.0-5.4 Hemoglobin 15.0 g/dL 14.0-18.0 Hematocrit 45 % 42-52 Mean Corpuscular Volume 97 fL High 80-94 Mean Corpuscular Hemoglobin 32 pg High 27-31 Mean Corpuscular HGB Conc 33 g/dL 31-36 Red Cell Distribution Width 13 % 10.5-15 Platelet Count 273 10^3/uL 150-450 Mean Platelet Volume 8 um3 7.4-10.4 Abs Neutrophils 5.5 10^3/uL 1.5-7.7 Abs Lymphocytes 2.3 10^3/uL 1.0-4.8 Abs Monocytes 1.1 10^3/uL High 0-0.8 Abs Eosinophils 0.2 10^3/uL 0-0.6 Abs Basophils 0.1 10^3/uL 0-0.2 Abs Nucleated RBC 0.01 10^3/uL Granulocyte % 59.9 % 38-83 Lymphocyte % 24.5 % Low 25-47 Monocyte % 12.3 % High 1-9 Eosinophil % 2.7 % 0-6 Basophil % 0.6 % 0-2 Nucleated Red Blood Cells % 0.1 Laboratory test finding 10/07/2014 TSH (Thyroid Stimulating 2.55 IU/mL 0.34-5.60 Horm) Hemoglobin A1c 5.9 % Less than 6.0 57 Vitamin D,25-Hydroxy 10/07/2014 25-Hydroxy Vitamin D2 <4.0 ng/mL 25-Hydroxy Vitamin D3 19 ng/mL 25-Hydroxy Vitamin D Total 19 ng/mL 58 Laboratory test finding 10/07/2014 LDL Cholesterol Direct 82 mg/dL 59 PSA Screening 2.343 ng/mL 0-4.000 60 Laboratory test finding 03/31/2014 Thyroid Stim Hormone 1.96 uIU/mL 0.49- 4.67 LDL Cholesterol Profile 03/31/2014 Cholesterol 126 mg/dL 120-200 Triglycerides 93 mg/dL 16-231 HDL Cholesterol 37 mg/dL 29-83 LDL-Cholesterol 70 mg/dL 62-185 Laboratory test 03/31/2014 C-Reactive 4.58 mg/L High 0.00-3.00 61 finding Protein,Cardiac Sedimentation Rate 10 mm/hr 0-20 Comprehensive Metabolic Panel 03/31/2014 Glucose 65 mg/dL Low 76-115 BUN 14 mg/dL 5-23 Creatinine 0.8 mg/dL 0.5-1.4 Glom Filtration Rate, Estimate >60 mL/min >60 If >60 mL/min >60 62 BUN/Creat 17.5 ratio Sodium 138 mmol/L 136-145 Potassium 4.0 mmol/L 3.5-5.1 Chloride 104 mmol/L 98-107 Carbon Dioxide 24 mEq/L 18-29 Anion Gap 14 mEq/L 8-16 Calcium 8.8 mg/dL 8.5-10.1 Total Protein 7.0 g/dL 6.3-8.0 Albumin 3.9 g/dL 3.5-5.0 Globulin 3.1 g/dL 1.9-4.3 Alb/Glob 1.3 ratio Bilirubin,Total 0.8 mg/dL 0.2-1.2 Sgot/Ast 22 U/L 16-40 SGPT/Alt 19 U/L Low 30-65 Alkaline Phosphatase 65 U/L 50-136 CBC W/Automated Diff 03/31/2014 White Blood Count 8.5 K/uL 3.4-10.5 Red Blood Count 4.54 M/uL 4.20-5.80 Hemoglobin 14.9 gm/dL 12.8-17.0 Hematocrit 43.2 % 38.0-48.0 Mean Cell Volume 95.2 fl 80.0-96.0 Mean Corpuscular HGB 32.8 pg 27.0-33.0 Mean Corpuscular HGB Conc 34.5 g/dL 31.7-36.0 Platelet Count 252 K/uL 150-400 Red Cell Distri Width SD 45.5 fl 36-51 Red Cell Distri Width %CV 13.5 % 11.6-15.8 Mean Platelet Volume 9.6 fL 6.6-10.6 Neut% 60.4 % 33.0-73.0 Lymph % 24.1 % 17.0-56.0 [place] % 12.4 % High 0.0-10.0 Eo% 2.5 % 0.0-5.0 Bas% 0.6 % 0.1-1.0 Neut# 5.13 K/uL 1.8-7.0 Lymph # 2.05 K/uL 1.2-4.0 [place] # 1.05 K/uL High 0.0-0.6 Eos # 0.21 K/uL 0.0-0.5 Baso # 0.05 K/uL Low 0.1-0.2 Laboratory test finding 04/07/2013 Prostate Specific Antigen 2.82 ng/mL 0.0-4.0 63 Thyroid Stim Hormone 1.79 uIU/mL 0.49-4.67 Liver Function Tests 04/07/2013 Total Protein 7.1 g/dL 6.3-8.0 Albumin 3.9 g/dL 3.5-5.0 Globulin 3.2 g/dL 1.9-4.3 Alb/Glob 1.2 ratio Bilirubin,Total 0.7 mg/dL 0.2-1.2 Bilirubin,Direct 0.2 mg/dL 0.1-0.4 Bilirubin,Indirect 0.5 mg/dL 0.0-0.9 Sgot/Ast 29 U/L 16-40 SGPT/Alt 32 U/L 30-65 Alkaline Phosphatase 84 U/L 50-136 LDL Cholesterol Profile 04/07/2013 Cholesterol 126 mg/dL 120-200 Triglycerides 119 mg/dL 16-231 HDL Cholesterol 33 mg/dL 29-83 LDL-Cholesterol 69 mg/dL 62-185 Laboratory test 04/07/2013 C-Reactive 4.15 mg/L High 0.00-3.00 64 finding Protein,Cardiac Sedimentation Rate 2 mm/hr 0-20 CBC/Manual Differential 04/07/2013 White Blood Count 8.5 K/uL 3.4-10.5 Red Blood Count 4.72 M/uL 4.20-5.80 Hemoglobin 14.9 gm/dL 12.8-17.0 Hematocrit 45.0 % 38.0-48.0 Mean Cell Volume 95.3 fl 80.0-96.0 Mean Corpuscular HGB 31.6 pg 27.0-33.0 Mean Corpuscular HGB Conc 33.1 g/dL 31.7-36.0 Platelet Count 306 K/uL 150-400 Red Cell Distri Width %CV 13.1 % 11.6-15.8 Mean Platelet Volume 9.4 fL 6.6-10.6 Total Cells Counted 100 #CELLS Neutrophils% 63 % 33-73 Lymph% 18 % 17-56 Platelet Estimate NORMAL Band% 1 % 0-8 Monocyte% 14 % High 0-10 Eosinophil% 4 % 0-5 Polychromasia 0-1+ Anisocytosis 1+ Macrocytosis 0-1+ Differential Comment See Note 65 Basic Metabolic Panel 04/07/2013 Glucose 65 mg/dL Low 76-115 BUN 10 mg/dL 5-23 Creatinine 0.9 mg/dL 0.5-1.4 Glom Filtration Rate, Estimate >60 mL/min >60 If >60 mL/min >60 66 BUN/Creat 11.1 ratio Sodium 137 mmol/L 136-145 Potassium 4.2 mmol/L 3.5-5.1 Chloride 101 mmol/L 98-107 Carbon Dioxide 25 mEq/L 18-29 Anion Gap 15 mEq/L 8-16 Calcium 9.0 mg/dL 8.5-10.1 Laboratory test finding 10/03/2012 TSH (Thyroid Stimulating 1.72 miu/mL 0.34-5.60 Horm) Erythrocyte Sed Rate 29 mm/Hr 0-40 CRP High Sensitivity 4.1 mg/L 67 PSA Screening 2.8 ng/mL 0-4.0 68 Liver Function Panel 10/03/2012 Total Protein 6.2 g/dL 6.2-8.1 Albumin 3.8 g/dL 3.2-5.2 Globulin 2.4 g/dL 2-4 Albumin/Globulin Ratio 1.6 1-3 Total Bilirubin 0.8 mg/dL 0.4-1.5 Direct Bilirubin 0.2 mg/dL 0.1-0.5 Indirect Bilirubin 0.6 mg/dL 0.3-1.0 Alkaline Phosphatase 53 U/L 30-110 Alt 23 U/L 14-54 Ast 27 U/L 12-42 Lipid Profile (Trig/Chol/HDL) 10/03/2012 Triglycerides 114 mg/dL 40-200 Cholesterol 127 mg/dL Less than 200 HDL Cholesterol 30 mg/dL Low 40-60 69 Cholesterol/HDL Ratio 4.2 Average 1-4.44 LDL Cholesterol 74.2 mg/dL Less Than 100 70 CBC Auto Diff 10/03/2012 White Blood Count 8.9 10^3/uL 4.8-10.8 Red Blood Count 4.38 10^6/uL 4.0-5.4 Hemoglobin 14.3 g/dL 14.0-18.0 Hematocrit 43 % 42-52 Mean Corpuscular Volume 97 fL High 80-94 Mean Corpuscular Hemoglobin 33 pg High 27-31 Mean Corpuscular HGB Conc 34 g/dL 31-36 Red Cell Distribution Width 13 % 10.5-15 Platelet Count 338 10^3/uL 150-450 Mean Platelet Volume 7 um3 Low 7.4-10.4 Abs Neutrophils 5.7 10^3/uL 1.5-7.7 Abs Lymphocytes 1.8 10^3/uL 1.0-4.8 Abs Monocytes 1.1 10^3/uL High 0-0.8 Abs Eosinophils 0.2 10^3/uL 0-0.6 Abs Basophils 0 10^3/uL 0-0.2 Abs Nucleated RBC 0.01 10^3/uL Granulocyte % 64.6 % 38-83 Lymphocyte % 20.6 % Low 25-47 Monocyte % 12.3 % High 1-9 Eosinophil % 1.9 % 0-6 Basophil % 0.6 % 0-2 Nucleated Red Blood Cells % 0.1 Basic Metabolic Panel 10/03/2012 Sodium 135 mmol/L 133-145 Potassium 4.2 mmol/L 3.5-5.0 Chloride 102 mmol/L 101-111 Co2 Carbon Dioxide 25.0 mmol/L 22-32 Anion Gap 8.0 mmol/L 2-11 Glucose 91 mg/dL 70-100 Blood Urea Nitrogen 13 mg/dL 6-24 Creatinine 1.00 mg/dL 0.50-1.40 BUN/Creatinine Ratio 13.0 8-20 Calcium 9.2 mg/dL 8.1-9.9 Egfr Non- 73.5 >60 Egfr 94.5 >60 71 CBC Auto Diff 04/17/2012 White Blood Count 8.3 CUMM 4.8-10.8 Red Cell Count 4.85 CUMM 4.6-6.2 Hemoglobin 15.9 g/dL 14.0-18.0 Hematocrit 47 % 42-52 Mean Corpuscular Volume 98 um3 High 80-94 Mean Corpuscular Hemoglob 33 pg High 27-31 Mean Corpuscular HGB Cone 34 g/dL 32-36 Redcell Distribution WDTH 13 % 10.5-15 Platelet Count 272 CUMM 150-450 Mean Platelet Volume 7.6 um3 7.4-10.4 Gran % 55.9 % 38-83 Lymph % 26.1 % 20-45 Mononuclear % 12.2 % High 1-9 Eosinophil % 5.1 % 0-6 Basophil % 0.7 % 0-2 Abs Lymphs 2.2 1.0-4.8 Abs Mononuclear 1.0 High 0-0.8 Absolute Neutrophil Count 4.6 1.5-7.7 Abs Eosinophils 0.4 0-0.6 Abs Basophils 0.1 0-0.2 Laboratory test finding 04/17/2012 PSA 3.11 NG/ML 0-4 72 Lipid Profile (Trig/Chol/HDL) 04/17/2012 Triglyceride 114 mg/dL 40-200 Cholesterol 153 mg/dL Less Than 200 73 High Density Lipoprotein 39 mg/dL Low 40-60 74 Cholesterol/HDL Ratio 3.92 AVERAGE 1-4.97 Low Density Lipoprotein 91 mg/dL Less Than 100 75 Comp Metabolic Panel 04/17/2012 Sodium 134 mmol/L Low 135-145 Potassium 5.0 mmol/L 3.5-5.0 Chloride 99 mmol/L Low 101-111 Co2 (Carbon Dioxide) 28.0 mmol/L 22-32 Anion Gap 7.0 mmol/L 2-11 76 Glucose 89 mg/dL 70-100 BUN 8 mg/dL 6-24 Creatinine 0.9 mg/dL 0.50-1.40 One Over Creatinine 1.11 BUN/Creatinine Ratio 8.9 8-20 Calcium 9.6 mg/dL 8.1-9.9 Total Protein 6.9 GM/DL 6.2-8.1 Albumin 4.2 GM/DL 3.2-5.2 Globulin 2.7 GM/DL 2-4 Albumin/Globulin Ratio 1.6 1-3 Bilirubin Total 1.1 mg/dL 0.4-1.5 77 Alkaline Phosphatase 68 U/L 39-117 Alt (SGPT) 23 U/L 17-63 Ast (Sgot) 31 U/L 12-42 eGFR Non- 82.9 > 60 eGFR 106.7 > 60 78 1 Platelet count confirmed by estimate 2 Because ethnic data is not always readily available, this report includes an eGFR for both -Americans and non- Americans. The National Kidney Disease Education Program (NKDEP) does not endorse the use of the MDRD equation for patients that are not between the ages of 18 and 70, are , have extremes of body size, muscle mass, or nutritional status, or are non- or non-. According to the National Kidney Foundation, irrespective of diagnosis, the stage of the disease is based on the level of kidney function: Stage Description GFR(mL/min/1.73 m(2)) 1 Kidney damage with normal or decreased GFR 90 2 Kidney damage with mild decrease in GFR 60-89 3 Moderate decrease in GFR 30-59 4 Severe decrease in GFR 15-29 5 Kidney failure <15 (or dialysis) 3 [id number] 4 Serologic response to B. burgdorferi infection is not detected, but cannot rule out early infection during which low or undetectable antibody levels to B. burgdorferi may be present. If clinically indicated, a new serum specimen should be submitted in 7-14 days. Test Performed by: [facility] [place] [address] [place] [address] 5 Because ethnic data is not always readily available, this report includes an eGFR for both -Americans and non- Americans. The National Kidney Disease Education Program (NKDEP) does not endorse the use of the MDRD equation for patients that are not between the ages of 18 and 70, are , have extremes of body size, muscle mass, or nutritional status, or are non- or non-. According to the National Kidney Foundation, irrespective of diagnosis, the stage of the disease is based on the level of kidney function: Stage Description GFR(mL/min/1.73 m(2)) 1 Kidney damage with normal or decreased GFR 90 2 Kidney damage with mild decrease in GFR 60-89 3 Moderate decrease in GFR 30-59 4 Severe decrease in GFR 15-29 5 Kidney failure <15 (or dialysis) 6 [id number] 7 Desirable: <150 Borderline High: 150-199 High: 200-499 Very High: >500 8 Desirable: <200 Borderline High: 200-239 High: >239 9 Low: <40 Desirable: 40-60 High: >60 10 Desirable: <100 Near Optimal: 100-129 Borderline High: 130-159 High: 160-189 Very High: >189 11 [id number] 12 [id number] 13 When total PSA is in the range of 4.0-10.0 ng/mL, a free PSA / Total PSA ratio of < or=0.10 indicates 49 to 65 % risk of prostate cancer depending on age; and a free PSA / total PSA ratio of > 0.25 indicates a 9 to 16% risk of prostate cancer depending on age. ADDITIONAL INFORMATION The testing method is an electrochemiluminescence assay manufactured by [employer] and performed on the Modular or Ming system. Values obtained with different assay methods or kits may be different and cannot be used interchangeably. Test results cannot be interpreted as absolute evidence for the presence or absence of malignant disease. Test Performed by: [facility] [place] [address] [place] [address] 14 Because ethnic data is not always readily available, this report includes an eGFR for both -Americans and non- Americans. The National Kidney Disease Education Program (NKDEP) does not endorse the use of the MDRD equation for patients that are not between the ages of 18 and 70, are , have extremes of body size, muscle mass, or nutritional status, or are non- or non-. According to the National Kidney Foundation, irrespective of diagnosis, the stage of the disease is based on the level of kidney function: Stage Description GFR(mL/min/1.73 m(2)) 1 Kidney damage with normal or decreased GFR 90 2 Kidney damage with mild decrease in GFR 60-89 3 Moderate decrease in GFR 30-59 4 Severe decrease in GFR 15-29 5 Kidney failure <15 (or dialysis) 15 [id number] 16 Desirable <150 Borderline high 150-199 High 200-499 Very High >500 17 Desirable <200 Borderline high 200-239 High >239 18 Low <40 Desirable: 40-60 High: >60 19 Desirable: <100 mg/dL Near Optimal: 100-129 mg/dL Borderline High: 130-159 mg/dL High: 160-189 mg/dL Very High: >189 mg/dL 20 [id number] 21 [id number] 22 Serum levels of PSA measured using the [employer] DXI Hybritech immunoassay should not be interpreted as absolute evidence of the presence or absence of disease. The PSA value should be used in conjunction with other pertinent clinical diagnostic procedures. The values obtained with different assay methods or kits cannot be used interchangeably. 23 [id number] 24 SEE RESULT BELOW Name: BLADE SANCHEZ : [address]: Santosh Valadez MD Acct: [id number] Unit: [id number] AGE: 76 Location: [facility] Re10/10/16 SEX: M Status: DEP REF SPEC: [id number] KRISTI: 10/10/16-1214 [facility] DR: Santosh Valadez MD REQ: [id number] RECD: 10/10/163855 STATUS: ESTEBAN VALLADARES DR: Gal Stover MD _ ORDERED: LEVEL IV/2 COMMENTS: [id number] FINAL DIAGNOSIS 1. Colon, cecum, biopsy: -- Tubular adenoma. -- No high grade dysplasia or malignancy. 2. Colon, at 20 cm, biopsy: -- Tubular adenoma. -- No high grade dysplasia or malignancy. CLINICAL HISTORY No history given POST-OPERATIVE DIAGNOSIS Colonoscopy to cecum - polyp at 20 cm biopsied; no repeat GROSS DESCRIPTION 1. The specimen is received in formalin labeled, Biopsy Cecal Polyp, and consists of a 0.3 x 0.2 x 0.2 cm smith-pink polypoid soft tissue fragment, which is submitted entirely in one cassette. 2. The specimen is received in formalin labeled, Biopsy Colon Polyp at 20 cm, and consists of a 0.5 x 0.2 x 0.2 cm smith-pink irregular to polypoid soft tissue fragment, which is submitted entirely in one cassette. Signed (signature on file) Skyla Parr MD [id number] END OF REPORT * ML=Testing performed at Main Lab DEPARTMENT OF PATHOLOGY, [address] [place] [address] Abraham Cat M.D. Director [facility] # [id number] 25 Because ethnic data is not always readily available, this report includes an eGFR for both -Americans and non- Americans. The National Kidney Disease Education Program (NKDEP) does not endorse the use of the MDRD equation for patients that are not between the ages of 18 and 70, are , have extremes of body size, muscle mass, or nutritional status, or are non- or non-. According to the National Kidney Foundation, irrespective of diagnosis, the stage of the disease is based on the level of kidney function: Stage Description GFR(mL/min/1.73 m(2)) 1 Kidney damage with normal or decreased GFR 90 2 Kidney damage with mild decrease in GFR 60-89 3 Moderate decrease in GFR 30-59 4 Severe decrease in GFR 15-29 5 Kidney failure <15 (or dialysis) 26 [id number] 27 Desirable <150 Borderline high 150-199 High 200-499 Very High >500 28 Desirable <200 Borderline high 200-239 High >239 29 Low <40 Desirable: 40-60 High: >60 30 Desirable: <100 mg/dL Near Optimal: 100-129 mg/dL Borderline High: 130-159 mg/dL High: 160-189 mg/dL Very High: >189 mg/dL 31 [id number] Ratio not calculated because clinical usefulness is not defined except in range of total PSA 4.0-10.0 ng/mL. ADDITIONAL INFORMATION The testing method is an electrochemiluminescence assay manufactured by [employer] and performed on the Modular or Ming system. Values obtained with different assay methods or kits may be different and cannot be used interchangeably. Test results cannot be interpreted as absolute evidence for the presence or absence of malignant disease. Test Performed by: [place] [address] Process Improvement Consultant: Mauricio Mayes II, M.D., Ph.D. 34 Because ethnic data is not always readily available, this report includes an eGFR for both -Americans and non- Americans. The National Kidney Disease Education Program (NKDEP) does not endorse the use of the MDRD equation for patients that are not between the ages of 18 and 70, are , have extremes of body size, muscle mass, or nutritional status, or are non- or non-. According to the National Kid[employer], irrespective of diagnosis, the stage of the disease is based on the level of kidney function: Stage Description GFR(mL/min/1.73 m(2)) 1 Kidney damage with normal or decreased GFR 90 2 Kidney damage with mild decrease in GFR 60-89 3 Moderate decrease in GFR 30-59 4 Severe decrease in GFR 15-29 5 Kidney failure <15 (or dialysis) 35 [facility] [place] [id number] [facility] [place] [id number] Serum levels of PSA measured using the [employer] DXI [employer] immunoassay should not be interpreted as absolute evidence of the presence or absence of disease. The PSA value should be used in conjunction with other pertinent clinical diagnostic procedures. The values obtained with different assay methods or kits cannot be used interchangeably. 38 [facility] [place] [id number] 39 Desirable <150 Borderline high 150-199 High 200-499 Very High >500 40 Desirable <200 Borderline high 200-239 High >239 41 Low <40 Desirable: 40-60 High: >60 42 Desirable: <100 mg/dL Near Optimal: 100-129 mg/dL Borderline High: 130-159 mg/dL High: 160-189 mg/dL Very High: >189 mg/dL 43 Desirable <150 Borderline high 150-199 High 200-499 Very High >500 44 Desirable <200 Borderline high 200-239 High >239 45 Low <40 Desirable: 40-60 High: >60 46 Desirable: <100 mg/dL Near Optimal: 100-129 mg/dL Borderline High: 130-159 mg/dL High: 160-189 mg/dL Very High: >189 mg/dL 47 Because ethnic data is not always readily available, this report includes an eGFR for both -Americans and non- Americans. The National Kidney Disease Education Program (NKDEP) does not endorse the use of the MDRD equation for patients that are not between the ages of 18 and 70, are , have extremes of body size, muscle mass, or nutritional status, or are non- or non-. According to the National Kidney Foundation, irrespective of diagnosis, the stage of the disease is based on the level of kidney function: Stage Description GFR(mL/min/1.73 m(2)) 1 Kidney damage with normal or decreased GFR 90 2 Kidney damage with mild decrease in GFR 60-89 3 Moderate decrease in GFR 30-59 4 Severe decrease in GFR 15-29 5 Kidney failure <15 (or dialysis) 48 Note: Persistent reduction for 3 months or more in an eGFR <60 mL/min/1.73 m2 defines CKD. Patients with eGFR values >/=60 mL/min/1.73 m2 may also have CKD if evidence of persistent proteinuria is present. The original MDRD equation for estimated GFR is not valid for patients less than 18 years of age. Additional information may be found at www.kdoqi.org. 49 Elevated levels of HbA1c suggest the need for more aggressive treatment of glycemia. The [place] Diabetes Association recommends that a primary goal of therapy should be a HbA1c of <7% and that physicians should re-evaluate the treatment regimen in patients with HbA1c values consistently >8%. 50 Reference Guidelines*: Desirable: ........... < 200 mg/dL Borderline High: ..... 200-239 mg/dL High: ................ >=240 mg/dL * The National Cholesterol Education Program (NCEP) 51 Reference Guidelines*: Normal: ............. < 150 mg/dL Borderline High: .... 150-199 mg/dL High: ............... 200-499 mg/dL Very High: .......... > 500 mg/dL * Source: National Cholesterol Education Program (NCEP) 52 Reference Guidelines*: Low HDL: ..... < 40 mg/dL Normal: ..... 40-60 mg/dL Desirable: ... > 60 mg/dL *The National Cholesterol Education Program(NCEP) 53 Reference Guidelines*: Optimal:........... <100 mg/dL Near Optimal....... 100-129 mg/dL Borderline High.... 130-159 mg/dL High............... 160-189 mg/dL Very High.......... >=190 mg/dL * Source: National Cholesterol Education Program (NCEP) 54 Vitamin D deficiency has been defined by the [place] of [employer] and an Endocrine Society practice guideline as a level of serum 25-OH vitamin D less than 20 ng/mL (1,2). The Endocrine Society went on to further define vitamin D insufficiency as a level between 21 and 29 ng/mL (2). 1. IOM ([place] of [employer]). 2010. Dietary reference intakes for calcium and D. [place]: The National Academies Press. 2. Raquel MF, Tanesha SALAZAR, Jaspal BRADLEY, et al. Evaluation, treatment, and prevention of vitamin D deficiency: an Endocrine Society clinical practice guideline. JCEM. 2010; 96(7):1911-30. Performed at: [facility] [id number] Non Categorical Preschool Teacher: Gricelda Centeno MD, Phone: [phone] 55 THIS ASSAY IS NOT INTENDED A CANCER SCREENING TEST The concentration of PSA in a given specimen, determined with assays from different manufacturers, can vary due to differences in assay methods and reagent specificity. Values obtained from different assay methods cannot be used interchangeably. 56 Because ethnic data is not always readily available, this report includes an eGFR for both -Americans and non- Americans. The National Kidney Disease Education Program (NKDEP) does not endorse the use of the MDRD equation for patients that are not between the ages of 18 and 70, are , have extremes of body size, muscle mass, or nutritional status, or are non- or non-. According to the National Kidney Foundation, irrespective of diagnosis, the stage of the disease is based on the level of kidney function: Stage Description GFR(mL/min/1.73 m(2)) 1 Kidney damage with normal or decreased GFR 90 2 Kidney damage with mild decrease in GFR 60-89 3 Moderate decrease in GFR 30-59 4 Severe decrease in GFR 15-29 5 Kidney failure <15 (or dialysis) 57 Therapeutic target for the treatment of diabetes Mellitus patients is <7% HBA1C, and in selective patients <6.0%.Please refer to [place] Diabetes Association Diabetic care guidelines for further information. 58 Interpretation: 10-19 ng/mL (mild to moderate deficiency) REFERENCE VALUE 25-HYDROXY D TOTAL (D2+D3) Optimum levels in the healthy population are 20-50, patients with bone disease may benefit from higher levels within this range. Test Performed by: [facility] [place] [place] [address] Process Improvement Consultant: Prosper Dias M.D. 59 Desirable <100 Near Optimal 100-129 Borderline high 130-159 High 160-189 Very High >189 60 Serum levels of PSA measured using the Jaunt DXI Hybritech immunoassay should not be interpreted as absolute evidence of the presence or absence of disease. The PSA value should be used in conjunction with other pertinent clinical diagnostic procedures. The values obtained with different assay methods or kits cannot be used interchangeably. 61 Relative Risk for Future Cardiovascular Event Low <1.00 Average 1.00 - 3.00 High >3.00 62 Note: Persistent reduction for 3 months or more in an eGFR <60 mL/min/1.73 m2 defines CKD. Patients with eGFR values >/=60 mL/min/1.73 m2 may also have CKD if evidence of persistent proteinuria is present. The original MDRD equation for estimated GFR is not valid for patients less than 18 years of age. Additional information may be found at www.kdoqi.org. 63 THIS ASSAY IS NOT INTENDED A CANCER SCREENING TEST The concentration of PSA in a given specimen, determined with assays from different manufacturers, can vary due to differences in assay methods and reagent specificity. Values obtained from different assay methods cannot be used interchangeably. 64 Relative Risk for Future Cardiovascular Event Low <1.00 Average 1.00 - 3.00 High >3.00 65 FEW LRG PLTS SEEN 66 Note: Persistent reduction for 3 months or more in an eGFR <60 mL/min/1.73 m2 defines CKD. Patients with eGFR values >/=60 mL/min/1.73 m2 may also have CKD if evidence of persistent proteinuria is present. The original MDRD equation for estimated GFR is not valid for patients less than 18 years of age. Additional information may be found at www.kdoqi.org. 67 Less Than 1.0......Low Risk of Cardiovascular Disease 1.0-3.0............Medium Risk (<2 Fold Increase) Greater Than 3.0...High Risk (Approximately 2-Fold Increase) 68 Serum levels of PSA measured using the Jaunt DXI Hybritech immunoassay should not be interpreted as absolute evidence of the presence or absence of disease. The PSA value should be used in conjunction with other pertinent clinical diagnostic procedures. The values obtained with different assay methods or kits cannot be used interchangeably. 69 HDL Interpretation: Undesirable: High Risk: Less than 40 MG/DL Desirable: Low Risk: Greater than 60 MG/DL 70 LDL Interpretation: Low Risk Optimal Level: LDL Less than 100 MG/DL Near or Above Optimal: LDL 100-129 MG/DL Borderline High Risk: LDL 130-159 MG/DL High Risk: LDL 160-189 MG/DL Very High Risk: LDL Greater than 189 MG/DL 71 Because ethnic data is not always readily available, this report includes an eGFR for both -Americans and non- Americans. The National Kidney Disease Education Program (NKDEP) does not endorse the use of the MDRD equation for patients that are not between the ages of 18 and 70, are , have extremes of body size, muscle mass, or nutritional status, or are non- or non-. According to the National Kidney Foundation, irrespective of diagnosis, the stage of the disease is based on the level of kidney function: Stage Description GFR(mL/min/1.73 m(2)) 1 Kidney damage with normal or decreased GFR 90 2 Kidney damage with mild decrease in GFR 60-89 3 Moderate decrease in GFR 30-59 4 Severe decrease in GFR 15-29 5 Kidney failure <15 (or dialysis) 72 * SERUM LEVELS OF PSA MEASURED USING THE Airphrame ACCESS HYBRITECH IMMUNOASSAY SHOULD NOT BE INTERPRETED ABSOLUTE EVIDENCE OF THE PRESENCE OR ABSENCE OF DISEASE. THE PSA VALUE SHOULD BE USED IN CONJUNCTION WITH OTHER PERTINENT CLINICAL DIAGNOSTIC PROCEDURES. The values obtained with different assay methods or kits cannot be used interchangeably. 73 CHOLESTEROL INTERPRETATION: Desirable: Less than 200 MG/DL Borderline-High Risk: 200-239 MG/DL High-Risk: 240 MG/DL and over 74 HDL INTERPRETATION: Undesirable: High Risk: Less than 40 MG/DL Desirable: Low Risk: Greater than 60 MG/DL 75 LDL INTERPRETATION: Low Risk Optimal Level: LDL Less than 100 MG/DL Near or Above Optimal: LDL 100-129 MG/DL Borderline High Risk: LDL 130-159 MG/DL High Risk: LDL 160-189 MG/DL Very High Risk: LDL Greater than 189 MG/DL 76 Anion gap measurement may be of limited value in the presence of any alkalosis, especially in a combined acid base disorder. . 77 A metabolite of Naproxen, O-desmethylnaproxen, has been shown to interfere with the Jendrassik-Lavinia method for measuring total bilirubin. Samples from patients who have taken Naproxen have shown spurious elevation in total bilirubin levels. 78 Because ethnic data is not always readily available, this report includes an eGFR for both -Americans and non- Americans. The National Kidney Disease Education Program (NKDEP) does not endorse the use of the MDRD equation for patients that are not between the ages of 18 and 70, are , have extremes of body size, muscle mass, or nutritional status, or are non- or non-. According to the National Kidney Foundation, irrespective of diagnosis, the stage of the disease is based on the level of kidney function: Stage Description GFR(mL/min/1.73 m(2)) 1 Kidney damage with normal or decreased GFR 90 2 Kidney damage with mild decrease in GFR 60-89 3 Moderate decrease in GFR 30-59 4 Severe decrease in GFR 15-29 5 Kidney failure <15 (or dialysis) Procedures Date CPT Code Description Status Comment 12/20/2017 69367 Injection DX/Therapeutic/Prophy Completed 12/20/2017 86868 Spirometry Completed 12/20/2017 63292 Tympanometry Completed 10/10/2016 Colonoscopy Completed 04/27/2016 83519 EKG Completed 05/10/2015 82453 Visual Screening Test Completed 05/10/2015 66971 EKG Completed 05/10/2015 21015 Audiometry, Bekesy, Screening Completed 03/31/2014 83825 EKG Completed 07/31/2013 51276 Spirometry Completed 07/31/2013 34109 Tympanometry Completed 10/17/2012 23300 EKG Completed 10/03/2012 75810 Spirometry Completed 08/17/2011 24115 Injection DX/Therapeutic/Prophy Completed 02/16/2009 76703 EKG Completed 01/05/2009 28977 Spirometry Completed 01/05/2009 67031 Tympanometry Completed 02/21/2006 87327 EKG Completed Encounters Type Date Location Provider CPT E/M Dx Office Visit 01/15/2018 2:45p [facility] Gal Stover M.D. 27194 J44.9 I10 E78.2 I25.10 E55.9 N40.0 K21.0 J30.2 M15.9 M54.5 R60.0 I87.2 H10.403 H91.8x3 E83.42 R97.20 M54.6 L20.9 F17.210 J30.9 J20.9 J01.40 H66.90 Office Visit 12/20/2017 1:45p [facility] Gal Stover M.D. 15290 J44.9 I10 E78.2 I25.10 E55.9 H66.90 N40.0 K21.0 J30.2 M15.9 M54.5 R60.0 I87.2 H10.403 H91.8x3 E83.42 R97.20 M54.6 L20.9 F17.210 J30.9 R21 L50.9 R13.14 L03.211 J20.9 J01.40 J18.9 Office Visit 12/13/2017 3:45p [facility] Gal Stover M.D. 92258 J44.9 I10 E78.2 I25.10 E55.9 N40.0 K21.0 J30.2 M15.9 M54.5 R60.0 I87.2 H10.403 H91.8x3 E83.42 R97.20 M54.6 L20.9 F17.210 J30.9 R21 L50.9 R13.14 L03.211 Office Visit 12/05/2017 11:45a [facility] Gal Stover M.D. 95609 J44.9 I10 E78.2 I25.10 E55.9 N40.0 K21.0 J30.2 M15.9 M54.5 R60.0 I87.2 H10.403 H91.8x3 E83.42 R97.20 M54.6 F17.210 L03.211 R21 L50.9 L20.9 J30.9 Office Visit 09/25/2017 10:45a [facility] Gal Stover M.D. 94724 J44.9 I10 E78.2 I25.10 E55.9 N40.0 K21.0 J30.2 M15.9 M54.5 R60.0 I87.2 H10.403 H91.8x3 E83.42 R97.20 M54.6 F17.210 Office Visit 09/19/2017 10:15a [facility] Gal Stover M.D. 73935 J44.9 I10 E78.2 I25.10 E55.9 N40.0 K21.0 J30.2 M15.9 M54.5 R60.0 I87.2 H10.403 H91.8x3 E83.42 R97.20 R42 M54.6 F17.210 Office Visit 06/25/2017 3:15p [facility] Kayden Adamson [facility] 136[address] R05 H10.89 J20.9 Office Visit 04/06/2017 11:15a [facility] Gal Stover M.D. 52897 J01.80 J20.9 R06.02 R06.2 R05 R09.81 J44.9 I10 E78.2 I25.10 E55.9 N40.0 K21.0 J30.2 M15.9 M54.5 R60.0 I87.2 H10.403 H91.8x3 E83.42 R97.20 R42 M54.6 F17.210 B37.0 Office Visit 03/26/2017 10:45a [facility] Kayden Adamson [facility] 736[address] F17.210 J01.80 R05 J20.9 R06.02 R06.2 Office Visit 03/23/2017 10:15a [facility] Gal Stover M.D. 84621 J44.9 I10 E78.2 I25.10 R06.02 R09.81 R05 E55.9 N40.0 K21.0 J30.2 M15.9 M54.5 F17.210 R60.0 I87.2 H10.403 H91.8x3 E83.42 R97.20 R42 M54.6 Office Visit 11/16/2016 1:45p [facility] Gal Stover M.D. 44366 J44.9 I10 E78.2 I25.10 R06.02 R09.81 R05 E55.9 N40.0 K21.0 J30.2 M15.9 M54.5 F17.210 R60.0 I87.2 H10.403 H91.8x3 E83.42 R97.20 R42 Office Visit 09/22/2016 2:15p [facility] Gal Stover M.D. 59402 R06.02 R09.81 R05 J44.9 I10 E78.2 I25.10 E55.9 N40.0 K21.0 J30.2 M15.9 M54.5 F17.210 R60.0 I87.2 H10.403 H91.8x3 E83.42 R97.20 Office Visit 07/11/2016 2:00p [facility] Gal Stover M.D. 48017 R06.02 R09.81 R05 J44.9 I10 E78.2 I25.10 E55.9 N40.0 K21.0 J30.2 M15.9 M54.5 F17.210 R60.0 I87.2 H10.403 H91.8x3 E83.42 S13.4xxA Z12.11 R97.20 Z23 Office Visit 04/27/2016 8:45a [facility] Gal Stover M.D. 12974 R06.02 R09.81 R05 J44.9 I10 E78.2 I25.10 E55.9 N40.0 K21.0 J30.2 M15.9 M54.5 F17.210 R60.0 I87.2 H10.403 H91.8x3 E83.42 Z00.01 Office Visit 03/30/2016 11:15a [facility] Gal Stover M.D. 47389 R06.02 R09.81 R05 J44.9 I10 E78.2 I25.10 E55.9 N40.0 K21.0 J30.2 M15.9 M54.5 F17.210 R60.0 I87.2 H10.403 H91.8x3 E83.42 Office Visit 02/03/2016 2:45p [facility] Gal Stover M.D. 89092 J20.9 J01.40 H66.93 R06.02 R09.81 R05 J44.9 I10 E78.2 I25.10 E55.9 N40.0 K21.0 J30.2 M15.9 M54.5 F17.210 R60.0 I87.2 H10.403 H91.8x3 E83.42 Office Visit 12/10/2015 2:15p [facility] Gal Stover M.D. 85443 J20.9 J01.40 H66.93 R06.02 R09.81 R05 J44.9 I10 E78.2 I25.10 E55.9 N40.0 K21.0 J30.2 M15.9 M54.5 F17.210 R60.0 I87.2 H10.403 H91.8x3 E83.42 Office Visit 09/24/2015 9:30a [facility] Gal Stover M.D. 66399 R06.02 R09.81 R05 J44.9 I10 E78.2 I25.10 E55.9 N40.0 K21.0 J30.2 M15.9 M54.5 F17.210 R60.0 I87.2 H10.403 H91.8x3 Office Visit 08/19/2015 2:00p [facility] Gal Stover M.D. 71196 Z23 Z23 H10.023 J18.9 J20.9 J01.41 R06.02 R09.81 R05 J44.9 I10 E78.2 I25.10 E55.9 N40.0 K21.0 J30.2 M15.9 M54.5 F17.210 R60.0 I87.2 H10.403 H91.8x3 Office Visit 07/26/2015 9:45a [facility] Gal Stover M.D. 65612 H10.023 J18.9 J20.9 J01.41 R06.02 R09.81 R05 J44.9 I10 E78.2 I25.10 E55.9 N40.0 K21.0 J30.2 M15.9 M54.5 F17.210 R60.0 I87.2 H10.403 H91.8x3 Office Visit 07/19/2015 3:00p [facility] Gal Stover M.D. 67759 J18.9 J20.9 J01.41 R06.02 R09.81 R05 J44.9 I10 E78.2 I25.10 E55.9 N40.0 K21.0 J30.2 M15.9 M54.5 F17.210 R60.0 I87.2 H10.403 H91.8x3 Office Visit 06/22/2015 2:00p [facility] Gal Stover M.D. 91132 J18.9 J20.9 J01.41 R06.02 R09.81 R05 J44.9 I10 E78.2 I25.10 E55.9 N40.0 K21.0 J30.2 M15.9 M54.5 F17.210 R60.0 I87.2 H10.403 H91.8x3 Office Visit 05/25/2015 11:00a [facility] Gal Stover M.D. 25744 496 401.1 272.2 414.01 268.9 600.00 530.11 477.8 715.90 724.2 305.1 782.3 459.81 372.10 389.8 Office Visit 05/10/2015 9:00a [facility] Gal Stover M.D. 26292 496 401.1 272.2 414.01 268.9 600.00 530.11 477.8 715.90 724.2 305.1 782.3 459.81 372.10 389.8 V70.0 Office Visit 03/29/2015 11:30a [facility] Gal Stover M.D. 35393 466.0 461.8 786.2 786.05 478.19 388.70 496 401.1 272.2 414.01 268.9 600.00 530.11 477.8 715.90 724.2 305.1 782.3 459.81 372.10 Office Visit 12/29/2014 2:15p [facility] Gal Stover M.D. 75995 382.9 462 388.70 786.2 786.05 478.19 496 401.1 272.2 414.01 268.9 600.00 530.11 477.8 715.90 724.2 305.1 782.3 459.81 Office Visit 10/07/2014 9:45a [facility] Kayden Adamson [facility] 68498 401.1 272.2 414.01 268.9 600.00 372.39 Office Visit 10/01/2014 10:15a [facility] Gal Stover M.D. 34623 372.39 478.19 401.1 272.2 530.11 477.8 496 414.01 600.00 715.90 724.2 305.1 782.3 459.81 Office Visit 09/23/2014 11:15a [facility] Gal Stover M.D. 41659 401.1 272.2 530.11 477.8 496 414.01 600.00 715.90 724.2 305.1 782.3 459.81 Office Visit 05/07/2014 10:30a [facility] Gal Stover M.D. 84238 401.1 272.2 530.11 477.8 496 414.01 600.00 715.90 724.2 305.1 782.3 459.81 Office Visit 04/14/2014 10:00a [facility] Lorena Bedoya, [facility] 10374 692.79 709.8 401.1 272.2 530.11 477.8 496 414.01 600.00 715.90 724.2 305.1 782.3 459.81 Office Visit 04/03/2014 11:00a [facility] Gal Stover M.D. 84981 401.1 496 272.2 414.01 530.11 600.00 715.90 477.8 724.2 305.1 782.3 459.81 Office Visit 03/31/2014 9:45a [facility] Gal Stover M.D. 95058 V70.0 401.1 496 272.2 414.01 V85.21 530.11 600.00 V76.41 715.90 V76.44 477.8 724.2 305.1 782.3 459.81 V70.0 Office Visit 11/18/2013 2:30p [facility] Ksenia Bhatt [facility] 74531 491.21 786.2 786.05 478.19 473.9 388.70 462 Office Visit 09/24/2013 2:15p [facility] Ksenia Bhatt [facility] 06573 491.21 786.2 786.05 478.19 305.1 715.90 724.2 477.8 401.1 Office Visit 08/26/2013 11:30a [facility] Gal Stover M.D. 05921 491.21 466.0 786.2 786.05 478.19 305.1 382.9 715.90 724.2 477.8 401.1 Office Visit 07/31/2013 10:45a [facility] Gal Stover M.D. 36730 491.21 466.0 786.2 786.05 478.19 305.1 382.9 715.90 724.2 477.8 V04.81 401.1 272.2 530.11 600.00 Office Visit 04/07/2013 8:45a [facility] Ksenia Bhatt [facility] 90705 724.2 477.8 715.90 401.1 305.1 786.2 786.05 272.2 530.11 600.00 496 Office Visit 10/17/2012 11:00a [facility] Gal Stover M.D. 84990 724.2 477.8 715.90 401.1 305.1 786.2 786.05 272.2 530.11 600.00 496 Office Visit 10/03/2012 9:00a [facility] Gal Stover M.D. 19083 466.0 786.05 786.2 461.8 382.9 478.19 305.1 724.2 477.8 715.90 401.1 272.2 530.11 600.00 366.53 491.21 Office Visit 07/19/2012 10:15a [facility] Gal Stover M.D. 36222 466.0 491.21 786.05 786.2 461.8 382.9 478.19 305.1 724.2 477.8 715.90 Office Visit 07/04/2012 10:45a [facility] Gal Stover M.D. 56892 401.1 272.2 530.11 477.8 305.1 724.2 715.90 V04.81 600.00 281.1 536.8 Office Visit 04/17/2012 9:00a [facility] Chelsie Tai [facility] 14853 401.1 272.2 530.11 477.8 305.1 724.2 715.90 600.00 461.8 Office Visit 04/04/2012 2:00p [facility] Gal Stover M.D. 41419 401.1 272.2 530.11 477.8 305.1 724.2 715.90 600.00 Office Visit 01/16/2012 10:15a [facility] Gal Stover M.D. 52071 366.53 369.9 401.1 272.2 724.2 530.11 305.1 372.30 V72.84 Office Visit 08/17/2011 10:00a [facility] Gal Stover M.D. 52677 401.1 272.2 281.1 600.00 Office Visit 08/03/2011 9:30a [facility] Gal Stover M.D. 20641 401.1 272.2 724.2 600.00 Office Visit 07/28/2011 10:30a [facility] Gal Stover M.D. 78480 401.1 536.8 276.9 724.2 Office Visit 03/24/2011 9:30a [facility] Gal Stover M.D. 13765 401.1 530.11 272.2 724.2 Office Visit 03/29/2010 8:30a [facility] Kayden Adamson [facility] 23819 401.1 530.11 272.2 846.0 Office Visit 09/16/2009 10:30a [facility] Gal Stover M.D. 06845 488.1 V04.81 Office Visit 06/18/2009 10:30a [facility] Gal Stover M.D. 59388 401.1 789.07 600.00 608.89 Office Visit 03/11/2009 9:45a [facility] Gal Stover M.D. 71853 796.2 401.1 780.79 600.00 Office Visit 02/26/2009 9:15a [facility] Gal Stover M.D. 03685 796.2 401.1 272.2 780.4 [facility]/15/[address] [facility]J44.9 Chronic obstructive pulmonary disease, unspecifiedComments:NEB OR MDI AND /OR OXYGEN SMOKING CESSATION [id number] Essential (primary) hypertensionComments:CHECK BP TIW ( PRN)F/U LABDIET AND FLUID COUNSELING LOW SODIUM DIETWT LOSSF/U LABSMOKING JJHIJRKODC78.2 Mixed hyperlipidemiaComments:DIET REVIEWED CONTINUE DIETWT LOSSF/U LAB FBWI25.10 Athscl heart disease of [place] coronary artery w/o ang pctrsComments:DIET REVIEWED WT LOSSF/U LAB STABLEF/U WITH CARDIOLOGY SMOKING [id number] Vitamin D deficiency, unspecifiedComments:INCREASE EXPOSURE TO SUNREVIEW OF DIETN40.0 Benign prostatic hyperplasia without lower urinry tract sympComments: STABLEF/U PSAK21.0 Gastro-esophageal reflux disease with esophagitisComments: AVOID CAFFEINE, ETOH AND SPICY FOODSTUMS OR MYLANTA PRN CALL WITH PROBLEMS OR CONCERNSSMOKING DCUSONVRIT10.2 Other seasonal allergic rhinitisComments: INCREASE PO FLUID USE ANTIHISTAMINE PRN SECOND HAND SMOKING AVOIDANCE SMOKING CESSATION [id number] Polyosteoarthritis, unspecifiedComments:EXERCISE/HEAT /MESSAGETYLENOL OR MOTRIN PRNAVOID HEAVY LIFTINGWT LOSSM54.5 Low back painComments:EXERCISE/HEAT /MESSAGEAVOID HEAVY LIFTING WT LOSSTYLENOL OR MOTRIN PRNR60.0 Localized edemaComments:ELEVATE LE PRNELASTIC STOCKING / DEVAN WRAP PRNF /U LAB JWDOAYV13.2 Venous insufficiency (chronic) (peripheral)Comments:ELEVATE LEPRESSURE STOCKINGWT LOSS NEEDED F/U LABH10.403 Unspecified chronic conjunctivitis, bilateralComments:EYE CARE INSTRUCTIONSNATURAL TEARS PRNAVOID RUBBING EYESH91.8x3 Other specified hearing loss, bilateralComments:SMOKING CESSATION OBSERVE FOR NOWE83.42 HypomagnesemiaComments:F/U LABR97.20 Elevated prostate specific antigen [PSA]Comments:F/U WITH UROLOGY PRNHAD FULL WORKUP BY UROLOGY AND PLAN TO XFLITYIA18.6 Pain in thoracic spineComments:EXERCISE/HEAT / MESSAGEAVOID HEAVY LIFTING WT LOSSTYLENOL OR MOTRIN PRN DUR AAHYPNPP58.9 Atopic dermatitis, unspecifiedComments:SKIN CARE INSTRUCTIONS LOTION OR BABY OIL 2-3 APPLICATION PER DAYUSE MOISTURIZING SOAPAVOID PROLONGED WATER EXPOSUREAVOID USING HOT WATER IN EZQYUGO37.210 Nicotine dependence, cigarettes, uncomplicatedComments:SMOKING CESSATION ZOCMLRJCJRBF41.9 Allergic rhinitis, unspecifiedComments:INCREASE PO FLUID USE ANTIHISTAMINE PRN SECOND HAND SMOKING AVOIDANCE SMOKING UGPOSJEOJF19.9 Acute bronchitis, unspecifiedNew Medication: Augmentin 875-125 mgComments:INCREASE PO FLUIDRESTSMOKING CESSATION FKNKZUSUBZWF00.40 Acute pansinusitis, unspecifiedComments:INCREASE PO FLUIDTYLENOL OR MOTRIN PRN ANTIHISTAMINE PRNSMOKING CESSATION [id number] Otitis media, unspecified, unspecified earComments:INCREASE PO FLUID TYLENOL OR MOTRIN PRN ANTIHISTAMINE PRNSMOKING CESSATION COUNCELLING
[2018-01-20] MEDS ORDERED: Albuterol/Ipratropium NEB.SOL* Albuterol 2.5 MG/Ipratropium 0.5 MG 3 ML ONE (15:55)
--- NOTE | 2018-01-20 16:10 | UC ---
Respiratory Complaint HPI - HPI Summary HPI Summary: This is a 77 yo male with COPD who presents with increasing SOB. He was seen by his PCP earlier this week and diagnosed with acute bronchitis. He was started on Augmentin and prednisone. The Augmentin gave him diarrhea so he's been splitting the pills in half. Over the last 2 days, he feels that his breathing has gotten worse. No fevers, nausea or vomiting. Just uses Combivent at home. As an exacerbation ~once yearly. - History of Current Complaint Chief Complaint: UCRespiratory Stated Complaint: CHEST PAIN TROUBLE BREATHING Pain Intensity: 0 - Allergies/Home Medications Allergies/Adverse Reactions: Allergies Allergy/AdvReac Type Severity Reaction Status Date / Time No Known Allergies Allergy Verified 01/20/18 15:51 Home Medications: Home Medications Albuterol/Ipratropium RESP(NF) [Combivent Respimat (NF)] 1 aer IN DAILY [History Confirmed 01/20/18] predniSONE [Prednisone] 10 mg PO DAILY 01/20/18 [History Confirmed 01/20/18] PMH/Surg Hx/FS Hx/Imm Hx Respiratory History: COPD - Surgical History Surgical History: Yes Surgery Procedure, Year, and Place: CARDIAC STENT 1996. LEFT SHOULDER SURGERY 1997 - Family History Known Family History: Positive: Cardiac Disease - Social History Alcohol Use: Weekly Substance Use Type: None Smoking Status (MU): Heavy Every Day Tobacco Smoker Amount Used/How Often: 1PPD Length of Time of Smoking/Using Tobacco: 50YRS Review of Systems Constitutional: Negative Skin: Negative Eyes: Negative ENT: Negative Respiratory: Shortness Of Breath, Cough Cardiovascular: Negative Gastrointestinal: Negative Genitourinary: Negative Motor: Negative Neurovascular: Negative Musculoskeletal: Negative Neurological: Negative Psychological: Negative Is Patient Immunocompromised?: No All Other Systems Reviewed And Are Negative: Yes Physical Exam Triage Information Reviewed: Yes Appearance: Well-Appearing Vital Signs: Initial Vital Signs Temp 99.1 F 01/20/18 15:43 Pulse 74 01/20/18 15:43 Resp 30 01/20/18 15:43 BP 158/65 01/20/18 15:43 Pulse Ox 94 01/20/18 15:43 Vital Signs Reviewed: Yes ENT Exam: Normal Neck exam: Normal Neck: Positive: Supple Respiratory: Positive: Rhonchi, Wheezing Cardiovascular: Positive: RRR, No Murmur Abdominal Exam: Normal Musculoskeletal Exam: Normal Neurological Exam: Normal Psychological Exam: Normal Skin Exam: Normal UC Diagnostic Evaluation - Laboratory O2 Sat by Pulse Oximetry: 94 Diagnostic Studies Comment: CXR - NAD Re-Evaluation - Re-Evaluation First Eval Re-Evaluation Time: 16:00 Change: Improved Comment: improved after DuoNeb Respiratory Course/Dx - Course Course Of Treatment: 77 yo male with COPD who presented with increased SOB. Improved with DuoNeb. No infiltrate on CXR. Recommend stopping Augmentin due to diarrhea and using Zpak instead. Cont prednisone and follow up with PCP early next week. He would benefit from starting an additional inhaler such as Spiriva for improved symptom control. Also interested in referral to pulmonology - Differential Dx/Diagnosis Differential Diagnosis/HQI/PQRI: Asthma, Bronchitis, Exacerbation Of COPD Provider Diagnoses: COPD exacerbation Discharge - Sign-Out/Discharge Documenting (check all that apply): Discharge/Admit/Transfer - Discharge Plan Condition: Stable Disposition: HOME Prescriptions: Azithromyxin DIANE (NF) [Z-Diane (Zithromax) 250 mg tabs #6] 2 tab PO .TODAY, THEN 1 DAILY #6 tab Patient Education Materials: Acute Bronchitis (ED) Referrals: Gal Stover MD [Primary Care Provider] - 2 Days Additional Instructions: Instructions: 1. Stop taking Augmentin 2. Start Azithromycin as prescribed 3. Follow up with Dr Stover early next week to discuss adding an additional inhaler such as Spiriva to your daily medications and a referral to pulmonology 4. Continue on the 1.5 tablets of prednisone for an additional 3 days before reducing to 1 tablet - Billing Disposition and Condition Condition: STABLE Disposition: HOME
--- NOTE | 2018-01-20 16:36 | RAD ---
INDICATION: Cough and shortness of breath. COMPARISON: Comparison is made with a prior chest x-ray study from March 26, 2017. TECHNIQUE: Dual-energy PA and lateral views of the chest were obtained. FINDINGS: The heart is within normal limits in size. Mediastinal and hilar contours appear within normal limits. The lungs are hyperinflated and clear. No pleural effusion is seen. IMPRESSION: FINDINGS CONSISTENT WITH COPD, NO EVIDENCE FOR ACUTE FINDING.
[2018-01-20 16:43] VITALS: BP 158/62
== END 2018-01-20 17:00 | disposition home or self-care (01) ==
LOC: UCEAST 15:40
DX: J44.1 Chronic obstructive pulmonary disease with (acute) exacerbation (principal); Z95.5 Presence of coronary angioplasty implant and graft; F17.210 Nicotine dependence, cigarettes, uncomplicated
CPT/HCPCS: 71046; 99212; A9270-GY; G0463

== ENCOUNTER 2019-03-01 14:15 | Emergency (ER) | payer MEDICARE ==
--- OUTSIDE RECORDS SUMMARY | 2019-03-01 14:22 | XMS REPORT | Continuity of Care Document ---
:1940 External Reference #:[id number] Author Name Mauricio Mann N.P. Address [address] [facility] [address] [place] [address] Care Team Providers Name Role Phone Gal Stover MD Care Team Information [employer] Unavailable Payers Date Identification Numbers Payment Provider Subscriber Effective: 2016 Policy Number: [id number] [employer] Blade Sanchez Group Number: [id number] [address] PayID: [id number] [place] [address] PayID: [id number] [employer] Blade Sanchez [address] [place] [address] Problems Active Problems Provider Date Benign essential hypertension Gal Stover M.D. Onset: 01/15/2012 Mixed hyperlipidemia Gal Stover M.D. Onset: 01/15/2012 Benign prostatic hypertrophy without outflow Gal Stover M.D. Onset: obstruction Low back pain Gal Stover M.D. Onset: 01/15/2012 Peptic reflux disease Gal Stover M.D. Onset: 01/15/2012 Allergic rhinitis Gal Stover M.D. 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 Onset: 01/16/2012 Osteoarthritis Gal Stover M.D. Onset: 10/03/2012 Chronic obstructive lung disease Gal Stover M.D. Onset: 10/03/2012 Chronic conjunctivitis Gal Stover M.D. Onset: 03/29/2015 Hearing loss Gal Stover M.D. Onset: 05/10/2015 Essential hypertension Gal Stover M.D. Onset: 06/22/2015 Family History Date Family Member(s) Observation Comments Children None Siblings 4 First Sister 75 First Sister Unknown Second Sister 73 Second Sister Unknown Third Sister 70 Third Sister Cancer Fourth Sister heart issues Fourth Sister 65 Fourth Sister Obesity Social History Type Date Description Comments Sex Unknown Marital Status Legal Status: Tobacco Use Start: Unknown Current Cigarette Smoker pt has been smoking a pack a day for 50 years ETOH Use Occasionally consumes alcohol Tobacco Use Start: Unknown Patient is a current smoker, smokes every day Smoking Status Reviewed: 10/24/18 Patient is a current smoker, smokes every day Allergies, Adverse Reactions, Alerts Active Allergies Reaction Severity Comments Date Sulfa Antibiotics 07/19/2012 Tobramycin 10/07/2014 Inactive Allergies NKDA 01/16/2012 NKDA 01/16/2012 Medications Active Medications SIG Qnty Indications Ordering Date Provider Combivent Respimat 1 puff twice a 12gm J44.9 Gal Stover, 11/21/2018 day M.D. 20-100mcg/Act Aerosol Hydrocodone-Acetaminop 1 tab by mouth 21tabs M54.6 Gal Stover, 2018 hen three times a day M.D. 7.5-325mg Tablets as needed Prednisolone Acetate 1 drops both eyes 10ml H10.45 Gal Stover, 2017 1% twice a day as M.D. Suspension needed Prednisone 1/2-1 tab by 90tabs J44.9 Gal Stover, 03/28/2018 20mg Tablets mouth every day M.D. Nebulizer use as directed 1units J44.9 Gal Stover, 01/21/2018 Device M.D. Nebulizer use with 2units J44Gal Palafox, 01/21/2018 Kit/Tubing/Mouthpiece nebulizer every 4 M.D. hours as needed Kit Albuterol Sulfate use with 180ml J44.9 [facility] timur Gutiérrez, 01/21/2018 nebulizer q4 M.D. (2.5mg/3ML) 0.083% hours as needed Nebulizer for cough/sob Betamethasone apply to affected 45gm L20.9 [facility], 12/05/2017 Dipropionate area ( Face) M.D. 0.05% Cream three times a day as needed Simvastatin 1 by mouth every 90tabs E78.2 [facility], 03/27/2017 40mg Tablets night M.D. Metoprolol Tartrate 1 tab by mouth 90tabs I10 [facility], 11/16/2016 100mg every day M.D. Tablets Losartan tab one by mouth 90tabs I10 [facility], 03/31/2014 Potassium/Hydrochlorot every in the M.D. hiazide morning 100-25mg Tablets R60.0 I87.2 Amlodipine Besylate 1 by mouth every 90tabs I10 CkGal hercules, 2011 10mg day M.D. Tablets Omeprazole 1 by mouth every 90caps K21.0 [facility], 01/16/[address] day M.D. K30 Aspir-81 1 by mouth every I10 [facility] M.D. 01/16/[address] morning History Medications Azithromycin 1 tab by mouth every 10tabs J18.9 [facility] 10/28/2018 - 500mg day x 10 days M., M.D. 02/06/2019 Tablets Levofloxacin 1 by mouth every day 14tabs J18.9 [facility] 10/21/2018 - 500mg M., M.D. 02/06/2019 Tablets Ventolin HFA 2 puff by mouth 1units [facility] 09/25/2018 - every 4 hours as M., M.D. 02/06/2019 108(90Base) mcg/Act needed Aerosol Diflucan 1 by mouth every day 14tabs B37.0 [facility] 09/25/2018 - 100mg x 1 week then skip M., M.D. 10/20/2018 Tablets week then restart. Ceftriaxone Sodium injection J18.9 [facility] 07/30/2018 - intramuscular r M., M.D. 07/31/2018 1gm Solution Rec buttock x1 Hydrocodone-Acetamin 1 tab by mouth three 60tabs M54.6 [facility] 2017 - ophen times a day as M., M.D. 10/20/2018 7.5-325mg needed Tablets Azithromycin 1 tab by mouth every 10tabs J18.9 [facility] 07/30/2018 - 500mg day x 10 days M., M.D. 08/09/2018 Tablets Prednisone 2 tab by mouth daily 20tabs J18.9 [facility] 07/30/2018 - 20mg 4 M., M.D. 08/08/2018 Tablets days,30x3d,20x2d,10x 7d Azithromycin 1 tab by mouth every 10tabs J18.9 [facility] 06/10/2018 - 500mg day x 10 days M., M.D. 06/20/2018 Tablets Diflucan take one tab by 2tabs J18.9 [facility], [facility] 06/10/2018 - 150mg mouth on day one M., M.D. 07/03/2018 Tablets (today) then one tab by mouth on day 10 Advair Diskus inhale one puff by 60units J44.9 [facility], [facility] 05/23/2018 - mouth twice a day M., M.D. 08/30/2018 250-50mcg/Dose Aerosol Ciprofloxacin HCL 1 tab by mouth twice 30tabs I10 [facility] 05/01/2018 - a day M., M.D. 05/18/2018 500mg Tablets Mucinex 1/2 tab by mouth 30tabs I10 [facility] 05/01/2018 - 600mg Tablets twice a day M., M.D. 05/18/2018 ER 12HR Symbicort inhale two puffs by 10.200gm J44.9 [facility] 01/21/2018 - mouth twice a day M., M.D. 05/01/2018 160-4.5mcg/Act Aerosol Augmentin 1 tab by mouth twice 20tabs J44.9 [facility] 01/15/2018 - 875-125mg a day M., M.D. 01/20/2018 Tablets Solu-Medrol given iv 1units J44.9 [facility] 12/20/2017 - 125mg M., M.D. 12/21/2017 Solution Rec Ceftriaxone Sodium injection J44.9 [facility] 12/20/2017 - intramuscular r M., M.D. 12/21/2017 1gm Solution Rec buttock x1 Prednisone 40 mg by mouth daily 90tabs 44.9 [facility] 12/20/2017 - 20mg 4 days,30 mGx3d,20 M., M.D. 03/17/2018 Tablets mgx2d, Then 10 MG Daily Augmentin 1 tab by mouth twice 20tabs J44.9 [facility] 12/20/2017 - 875-125mg a day M., M.D. 12/30/2017 Tablets Keflex 1 by mouth three 30caps [address] [place] [address] 12/05/2017 - 500mg Capsules times a day M., M.D. 12/15/2017 Prednisone 3 tab by mouth daily 18tabs 44.9 [facility] 12/05/2017 - 20mg 3 days, then 2 tab M., M.D. 12/14/2017 Tablets daily x 3 d , then 1 tab daily 3d Ciprofloxacin HCL tab one by mouth 20tabs J44.9 [facility] 06/25/2017 - twice a day M., M.D. 07/05/2017 500mg Tablets Gentamicin Sulfate 2 drops both eyes 10cc H10.89 [facility] 06/25/2017 - three times a day M., M.D. 09/17/2017 0.3% Solution for 5-7 days Fluconazole 1 by mouth twice a 20tabs B37.0 [facility] 04/06/2017 - 100mg day M., M.D. 04/16/2017 Tablets Prednisone tab one by mouth 18tabs R06.2 [facility] 03/26/2017 - 10mg three times a day x M., M.D. 09/17/2017 Tablets 3 days; tab one by mouth twice a day x 3 days; tab one by mouth every day x 3 days R06.02 J44.9 Levofloxacin tab 1 by mouth 10tabs J44.9 [facility] 03/26/2017 - 500mg every day M., M.D. 04/05/2017 Tablets Combivent Respimat 1 by mouth four 12gm R06.02 [facility] 10/02/2016 - times a day M., M.D. 09/24/2018 20-100mcg/Act Aerosol R05 Naproxen 1 tab by mouth 60tabs [facility] , 07/11/2016 - 500mg twice a day as M.D. 03/17/2018 Tablets needed Soma 1 tab by mouth 60tabs [facility], 07/11/2016 - 350mg Tablets twice a day as M.D. 09/17/2016 needed Prednisone 3 tab [facility] 07/11/2016 - 20mg daily 3 days, M.D. 07/21/2016 Tablets then 2 tab daily x 3 d , then 1 tab daily 3d Advair Diskus 1 by mouth twice 3Mdi R06.02 [facility], 04/27/2016 - a day M.D. 09/17/2016 250-50mcg/Dose Aerosol R05 Prednisone 2 tab by mouth daily 4 50tabs R06.02 [facility] 12/10/2015 - days,30x3d,20x2d,10x7d M., M.D. 12/26/2015 20mg Tablets J44.9 Ciprodex 2 drops both 7.500ml H10.023 [facility] 07/26/2015 - 0.3-0.1% eyes three M., M.D. 07/26/2015 Suspension times a day Ciprofloxacin HCL 1 drop drops 10ml H10.023 [facility] 07/26/2015 - 0.3% both eyes three M., M.D. 07/30/2015 Solution times a day Acetaminophen-Codeine 2 tab by mouth 90tabs R05 [facility] 07/19/2015 - #3 every 4 hours M., M.D. 09/17/2016 300-30mg Tablets as needed Amoxicillin/Clavulanat 1 tab by mouth 20tabs [facility] 07/19/2015 - e Potassium twice a day M., M.D. 12/20/2015 875-125mg Tablets Prednisone 2 tab by mouth 50tabs R06.02 [facility] 07/19/2015 - 20mg Tablets daily 4 M., M.D. 08/04/2015 days,30x3d,20x2 d,10x7d J44.9 Amoxicillin 2 by mouth 40tabs J01.41 [facility], 06/22/2015 - 500mg twice a day M.D. 07/02/2015 Tablets J44.9 Prednisone 2 tab by mouth 8tabs J01.41 [facility], 06/22/2015 - 20mg Tablets daily 4 days M.D. 07/08/2015 J44.9 Amoxicillin 2 by mouth 40tabs 466.0 [facility], 03/29/2015 - 500mg twice a day M.D. 04/08/2015 Tablets 461.8 Prednisone 2 tab by mouth daily 4 50tabs 466.0 [facility] 03/29/2015 - days,30x3d,20x2d,10x7d M., M.D. 04/14/2015 20mg Tablets 786.05 461.8 Amoxicillin 2 by mouth twice 40tabs 382.9 [facility] 12/29/2014 - 500mg a day M., M.D. 01/08/2015 Tablets Vitamin D3 High tab one by mouth OTC E55.9 [facility] 10/12/2014 - Potency every day M., M.D. 09/17/2016 1000Unit Capsules Tobramycin 2 drops both 5ml 372.39 [facility] 10/01/2014 - 0.3% eyes three times M., M.D. 10/07/2014 Solution a day Cheratussin ac 2 tsp by mouth 500ml 786.2 [facility] 08/26/2013 - every 4 hours as M. M.D. 09/11/2013 100-10mg/5ML Syrup needed Combivent Respimat 1 by mouth four 4units R06.02 [facility] 08/26/2013 - times a day M., M.D. 04/27/2016 20-100mcg/Act Aerosol R05 Prednisone 2 tab by mouth daily 4 20tabs 466.0 [facility] 07/31/2013 - days,30x3d,20x2d,10x7d M., M.D. 08/16/2013 20mg Tablets 786.05 461.8 Biaxin 1 tab by mouth 20tabs 461.8 [facility] 10/03/2012 - 500mg twice a day x10 M.D. 11/28/2013 Tablets days 491.21 462 Prednisone 2 tab by mouth 8tabs 786.05 [facility], 10/03/2012 - 20mg Tablets daily 4 days M.D. 10/07/2012 478.19 491.21 Combivent 2 four times a 14.700gm 786.05 [facility] 07/19/2012 - 18-103mcg/Act day M., M.D. 08/26/2013 Aerosol 491.21 786.2 Prednisone 2 tab by mouth daily 4 50tabs 466.0 [facility] 07/19/2012 - days,30x3d,20x2d,10x7d M., M.D. 03/17/2014 20mg Tablets 786.05 461.8 Biaxin 1 tab by mouth 20tabs 466.0 [facility], 07/19/2012 - 500mg twice a day x10 M.D. 07/29/2012 Tablets days 461.8 382.9 Instaflex 1 PO qd 724.2 [facility] M.D. 07/19/2012 - 10/03/2011 715.90 Folic Acid 1 po qd 30tabs 477.8 CkGal herculesLuis, 07/04/2012 - 10/03/2011 800mcg M.D. Tablets 530.11 Vitamin B-12 1 by mouth every 401.1 KcGal herculesLuis, 07/04/2012 - Natural day M.D. 10/03/2011 500mcg Tablets 272.2 281.1 Zithromax Z-Markell 1 pack use as 1Pack 461.8 [facility] timur 04/17/2012 - 250mg directed M. M.DLuis 04/22/2012 Tablets Tobramycin Sulfate 2 drop both eyes 5ml 372.30 [facility] 01/16/2012 - bid 7 days M., M.DLuis 01/26/2012 0.3% Solution Simvastatin 1 tab by mouth 90tabs E78.2 [facility] 01/16/2012 - 80mg every night M. M.DLuis 03/27/2017 Tablets Losartan Potassium 1 by mouth every 90tabs 401.1 CkGal hercules 01/16/2012 - day M. M.DLuis 03/31/2014 100mg Tablets Metoprolol Tartrate 1 by mouth twice 180tabs I10 CkGal hercules 01/16/2012 - a day MLuis M.DLuis 11/16/2016 100mg Tablets Loratadine Allergy 477.8 [facility] timur 01/16/2012 - Relief M. M.DLuis 10/03/2011 10mg Tablets Dispers Tobradex 372.39 Unknown - 0.3-0.1% 03/22/2015 Ointment Medications Administered in Office Medication SIG Qnty Indications Ordering Provider Date Solu-Medrol Up To 40MG Mauricio Mann, N.PLuis 10/21/2018 Injection Rocephin 250 Gal Stover M.D. 07/30/2018 Injection Rocephin 250 Mauricio Mann N.PLuis 05/01/2018 Injection Solu-Medrol 125MG Gal Stover M.D. 12/20/2017 Injection Rocephin 250 Gal Stover M.D. 12/20/2017 Injection Admin Of Pneumovax Gal Stover M.D. 08/19/2015 Injection B12 Gal Stover M.D. 08/17/2011 Injection Immunizations CPT Code Status Date Vaccine Lot # [id number] Given 07/02/2018 Influenza,Unspecified Q2038 Given 07/11/2016 Flu Vaccine 3+Yrs Old(Fluzone) 51305 Given 12/02/2015 Zoster Shingles Vaccine For Injection Q2038 Given 08/19/2015 Flu Vaccine 3+Yrs Old(Fluzone) 61759 Given 08/19/2015 Pneumovax [id number] Given 08/19/2015 Flu Vaccine [id number] Given 06/27/2014 Flu Vaccine Q2038 Given 07/31/2013 Flu Vaccine 3+Yrs Old(Fluzone) [id number] Q2038 Given 07/04/2012 Flu Vaccine 3+Yrs Old(Fluzone) [id number] Given 09/16/2009 Admin Of Influenza [id number] 97256 Given 08/08/2006 Flu Vaccine 93682 Given 07/31/2003 Pneumovax [id number] Vital Signs Date Vital Result Comment 02/07/2019 3:36pm BP Systolic 110 mmHg BP Diastolic 64 mmHg Height 68 inches 5'8" Weight 155.00 lb BMI (Body Mass Index) 23.6 kg/m2 Heart Rate 64 /min Body Temperature 96.6 F Respiratory Rate 20 /min 10/28/2018 2:03pm BP Systolic 118 mmHg BP Diastolic 64 mmHg Height 68 inches 5'8" Weight 151.00 lb BMI (Body Mass Index) 23.0 kg/m2 Heart Rate 56 /min Body Temperature 96.6 F Respiratory Rate 18 /min 10/21/2018 1:57pm BP Systolic 110 mmHg BP Diastolic 62 mmHg Height 68 inches 5'8" Weight 156.00 lb BMI (Body Mass Index) 23.7 kg/m2 Heart Rate 73 /min Body Temperature 96.5 F Respiratory Rate 18 /min 09/25/2018 2:21pm BP Systolic 110 mmHg BP Diastolic 64 mmHg Height 68 inches 5'8" Weight 158.00 lb BMI (Body Mass Index) 24.0 kg/m2 Heart Rate 72 /min Respiratory Rate 18 /min 08/30/2018 1:47pm BP Systolic 122 mmHg BP Diastolic 58 mmHg Height 68 inches 5'8" Weight 158.00 lb BMI (Body Mass Index) 24.0 kg/m2 08/06/2018 2:54pm BP Systolic 122 mmHg BP Diastolic 60 mmHg Height 68 inches 5'8" Weight 162.00 lb BMI (Body Mass Index) 24.6 kg/m2 Heart Rate 70 /min Respiratory Rate 18 /min 07/30/2018 1:32pm BP Systolic 118 mmHg BP Diastolic 64 mmHg Height 68 inches 5'8" Weight 160.00 lb BMI (Body Mass Index) 24.3 kg/m2 Heart Rate 71 /min Body Temperature 97.0 F Respiratory Rate 16 /min 07/04/2018 10:18am BP Systolic 162 mmHg BP Diastolic 68 mmHg Height 68 inches 5'8" Weight 164.00 lb BMI (Body Mass Index) 24.9 kg/m2 Heart Rate 112 /min Respiratory Rate 16 /min 06/10/2018 2:05pm BP Systolic 132 mmHg BP Diastolic 78 mmHg Height 68 inches 5'8" Weight 159.00 lb BMI (Body Mass Index) 24.2 kg/m2 Heart Rate 72 /min 06/04/2018 12:56pm BP Systolic 142 mmHg BP Diastolic 68 mmHg Height 68 inches 5'8" Weight 159.00 lb BMI (Body Mass Index) 24.2 kg/m2 Heart Rate 67 /min Respiratory Rate 14 /min 05/23/2018 10:05am BP Systolic 100 mmHg BP Diastolic 58 mmHg Height 68 inches 5'8" Weight 159.00 lb BMI (Body Mass Index) 24.2 kg/m2 Heart Rate 64 /min Respiratory Rate 16 /min 05/01/2018 1:04pm BP Systolic 128 mmHg BP Diastolic 62 mmHg Height 68 inches 5'8" Weight 160.00 lb BMI (Body Mass Index) 24.3 kg/m2 Heart Rate 67 /min Body Temperature 97.0 F Respiratory Rate 14 /min 03/28/2018 2:01pm BP Systolic 118 mmHg BP Diastolic 62 mmHg Height 68 inches 5'8" Weight 160.00 lb BMI (Body Mass Index) 24.3 kg/m2 Heart Rate 64 /min Respiratory Rate 14 /min 01/21/2018 11:03am BP Systolic 118 mmHg BP Diastolic 60 mmHg Height 68 inches 5'8" Weight 155.00 lb BMI (Body Mass Index) 23.6 kg/m2 Heart Rate 67 /min Respiratory Rate 18 /min 01/15/2018 2:42pm BP Systolic 128 mmHg BP Diastolic 58 mmHg Height 68 inches 5'8" Weight 155.00 lb BMI (Body Mass Index) 23.6 kg/m2 Heart Rate 69 /min Body Temperature 97.0 F Respiratory Rate 18 /min 12/20/2017 1:48pm BP Systolic 124 mmHg BP Diastolic 60 mmHg Height 68 inches 5'8" Weight 162.00 lb BMI (Body Mass Index) 24.6 kg/m2 Heart Rate 64 /min Body Temperature 96.8 F Respiratory Rate 18 /min 12/13/2017 3:46pm BP Systolic 118 mmHg BP Diastolic 70 mmHg Height 68 inches 5'8" Weight 162.00 lb BMI (Body Mass Index) 24.6 kg/m2 Heart Rate 72 /min Body Temperature 96.3 F Respiratory Rate 16 /min 12/05/2017 11:16am BP Systolic 126 mmHg BP Diastolic 58 mmHg Height 68 inches 5'8" Weight 157.00 lb BMI (Body Mass Index) 23.9 kg/m2 Heart Rate 66 /min Respiratory Rate 18 /min 09/19/2017 10:02am BP Systolic 130 mmHg BP Diastolic 70 mmHg Height 68 inches 5'8" Weight 156.00 lb BMI (Body Mass Index) 23.7 kg/m2 Heart Rate 76 /min Respiratory Rate 18 /min 06/25/2017 12:24pm Weight 157.00 lb 04/06/2017 11:03am BP Systolic 130 mmHg BP Diastolic 56 mmHg Height 68 inches 5'8" Weight 156.00 lb BMI (Body Mass Index) 23.7 kg/m2 Heart Rate 56 /min Respiratory Rate 16 /min 03/26/2017 10:51am BP Systolic 140 mmHg BP Diastolic 69 mmHg Height 68 inches 5'8" Weight 156.00 lb BMI (Body Mass Index) 23.7 kg/m2 Heart Rate 72 /min Body Temperature 98.8 F Respiratory Rate 16 /min 03/23/2017 10:08am BP Systolic 112 mmHg BP Diastolic 58 mmHg Height 68 inches 5'8" Weight 156.00 lb BMI (Body Mass Index) 23.7 kg/m2 Heart Rate 71 /min Respiratory Rate 16 /min 11/16/2016 1:37pm BP Systolic 134 mmHg BP Diastolic 68 mmHg Height 68 inches 5'8" Weight 158.00 lb BMI (Body Mass Index) 24.0 kg/m2 Heart Rate 63 /min Respiratory Rate 16 /min 09/22/2016 2:18pm BP Systolic 122 mmHg BP Diastolic 64 mmHg Height 68 inches 5'8" Weight 164.00 lb BMI (Body Mass Index) 24.9 kg/m2 Heart Rate 63 /min Respiratory Rate 18 /min 07/11/2016 2:10pm BP Systolic 132 mmHg BP Diastolic 66 mmHg Height 68 inches 5'8" Weight 162.00 lb BMI (Body Mass Index) 24.6 kg/m2 Heart Rate 76 /min Respiratory Rate 20 /min 04/27/2016 8:44am BP Systolic 126 mmHg BP Diastolic 62 mmHg Height 68 inches 5'8" Weight 158.00 lb BMI (Body Mass Index) 24.0 kg/m2 Heart Rate 76 /min Respiratory Rate 20 /min 03/30/2016 11:11am BP Systolic 128 mmHg BP Diastolic 52 mmHg Height 68 inches 5'8" Weight 156.00 lb BMI (Body Mass Index) 23.7 kg/m2 Heart Rate 76 /min Respiratory Rate 17 /min 02/03/2016 1:59pm BP Systolic 108 mmHg BP Diastolic 50 mmHg Height 68 inches 5'8" Weight 160.00 lb BMI (Body Mass Index) 24.3 kg/m2 Heart Rate 66 /min Respiratory Rate 20 /min 12/10/2015 2:18pm BP Systolic 117 mmHg BP Diastolic 64 mmHg Height 68 inches 5'8" Weight 165.00 lb BMI (Body Mass Index) 25.1 kg/m2 Heart Rate 65 /min Body Temperature 97.3 F Respiratory Rate 18 /min 09/24/2015 9:30am BP Systolic 121 mmHg BP Diastolic 56 mmHg Height 68 inches 5'8" Weight 162.00 lb BMI (Body Mass Index) 24.6 kg/m2 Heart Rate 62 /min Respiratory Rate 18 /min 08/19/2015 2:01pm BP Systolic 131 mmHg BP Diastolic 71 mmHg Height 68 inches 5'8" Weight 158.00 lb BMI (Body Mass Index) 24.0 kg/m2 Heart Rate 55 /min Respiratory Rate 18 /min 07/26/2015 9:51am BP Systolic 121 mmHg BP Diastolic 68 mmHg Height 68 inches 5'8" Weight 155.00 lb BMI (Body Mass Index) 23.6 kg/m2 Heart Rate 61 /min Body Temperature 96.6 F Respiratory Rate 18 /min 07/19/2015 2:54pm BP Systolic 133 mmHg BP Diastolic 66 mmHg Height 68 inches 5'8" Weight 156.00 lb BMI (Body Mass Index) 23.7 kg/m2 Heart Rate 81 /min Body Temperature 98.2 F Respiratory Rate 18 /min 06/22/2015 1:25pm BP Systolic 128 mmHg BP Diastolic 66 mmHg Height 68 inches 5'8" Weight 158.00 lb BMI (Body Mass Index) 24.0 kg/m2 Heart Rate 76 /min Body Temperature 95.0 F Respiratory Rate 18 /min 05/25/2015 10:54am BP Systolic 116 mmHg BP Diastolic 58 mmHg Height 68 inches 5'8" Weight 158.00 lb BMI (Body Mass Index) 24.0 kg/m2 Heart Rate 62 /min Respiratory Rate 17 /min 05/10/2015 9:22am BP Systolic 131 mmHg BP Diastolic 69 mmHg Height 68 inches 5'8" Weight 156.00 lb BMI (Body Mass Index) 23.7 kg/m2 Heart Rate 57 /min Body Temperature 97.2 F Respiratory Rate 14 /min 03/29/2015 11:25am BP Systolic 143 mmHg BP Diastolic 65 mmHg Height 68 inches 5'8" Weight 157.00 lb BMI (Body Mass Index) 23.9 kg/m2 Heart Rate 60 /min Body Temperature 97.5 F Respiratory Rate 20 /min 12/29/2014 2:10pm BP Systolic 129 mmHg BP Diastolic 73 mmHg Height 68 inches 5'8" Weight 155.00 lb BMI (Body Mass Index) 23.6 kg/m2 Heart Rate 63 /min Body Temperature 97.4 F Respiratory Rate 16 /min 10/07/2014 9:46am BP Systolic 152 mmHg BP Diastolic 67 mmHg BP Systolic Recheck 142 mmHg BP Diastolic Recheck 68 mmHg Height 68 inches 5'8" Weight 161.00 lb BMI (Body Mass Index) 24.5 kg/m2 Heart Rate 69 /min Respiratory Rate 15 /min 10/01/2014 10:15am BP Systolic 144 mmHg BP Diastolic 68 mmHg Height 68 inches 5'8" Weight 164.00 lb BMI (Body Mass Index) 24.9 kg/m2 Heart Rate 59 /min Body Temperature 96.2 F Respiratory Rate 20 /min 09/23/2014 11:26am BP Systolic 131 mmHg BP Diastolic 63 mmHg Height 68 inches 5'8" Weight 166.00 lb BMI (Body Mass Index) 25.2 kg/m2 Heart Rate 58 /min Respiratory Rate 12 /min 05/07/2014 10:50am BP Systolic 129 mmHg BP Diastolic 69 mmHg Height 68 inches 5'8" Weight 162.00 lb BMI (Body Mass Index) 24.6 kg/m2 Heart Rate 57 /min Respiratory Rate 20 /min 04/14/2014 9:56am BP Systolic 128 mmHg BP Diastolic 70 mmHg Height 68 inches 5'8" Weight 166.00 lb BMI (Body Mass Index) 25.2 kg/m2 Heart Rate 61 /min Body Temperature 96.1 F Respiratory Rate 20 /min 04/03/2014 11:09am BP Systolic 133 mmHg BP Diastolic 68 mmHg Height 68 inches 5'8" Weight 168.00 lb BMI (Body Mass Index) 25.5 kg/m2 Heart Rate 60 /min Respiratory Rate 20 /min 03/31/2014 9:53am BP Systolic 149 mmHg BP Diastolic 69 mmHg Height 68 inches 5'8" Weight 168.00 lb BMI (Body Mass Index) 25.5 kg/m2 Heart Rate 62 /min Body Temperature 96.1 F Respiratory Rate 22 /min 11/18/2013 2:51pm BP Systolic 162 mmHg BP Diastolic 76 mmHg Height 68 inches 5'8" Weight 160.00 lb BMI (Body Mass Index) 24.3 kg/m2 Heart Rate 67 /min Body Temperature 96.9 F 09/24/2013 2:11pm BP Systolic 136 mmHg BP Diastolic 58 mmHg Height 68 inches 5'8" Weight 160.00 lb BMI (Body Mass Index) 24.3 kg/m2 Heart Rate 67 /min Respiratory Rate 20 /min 08/26/2013 11:23am BP Systolic 145 mmHg BP Diastolic 69 mmHg Height 68 inches 5'8" Weight 161.00 lb BMI (Body Mass Index) 24.5 kg/m2 Heart Rate 59 /min Body Temperature 98.1 F Respiratory Rate 22 /min 07/31/2013 11:04am BP Systolic 144 mmHg BP Diastolic 65 mmHg Height 68 inches 5'8" Weight 163.00 lb BMI (Body Mass Index) 24.8 kg/m2 Heart Rate 66 /min Body Temperature 97.1 F Respiratory Rate 22 /min 04/07/2013 8:56am BP Systolic 146 mmHg BP Diastolic 78 mmHg Height 68 inches 5'8" Weight 165.00 lb BMI (Body Mass Index) 25.1 kg/m2 Heart Rate 59 /min Respiratory Rate 20 /min 10/17/2012 11:35am BP Systolic 122 mmHg BP Diastolic 62 mmHg Height 68 inches 5'8" Weight 168.00 lb BMI (Body Mass Index) 25.5 kg/m2 Heart Rate 67 /min Respiratory Rate 18 /min 10/03/2012 9:06am BP Systolic 140 mmHg BP Diastolic 70 mmHg Height 68 inches 5'8" Weight 167.00 lb BMI (Body Mass Index) 25.4 kg/m2 Heart Rate 73 /min Body Temperature 96.9 F Respiratory Rate 14 /min 07/19/2012 10:17am BP Systolic 142 mmHg BP Diastolic 64 mmHg Height 68 inches 5'8" Weight 165.00 lb BMI (Body Mass Index) 25.1 kg/m2 Heart Rate 60 /min Respiratory Rate 12 /min 07/04/2012 10:57am BP Systolic 140 mmHg BP Diastolic 64 mmHg Height 68 inches 5'8" Weight 166.00 lb BMI (Body Mass Index) 25.2 kg/m2 Heart Rate 62 /min Respiratory Rate 16 /min 04/17/2012 8:55am BP Systolic 158 mmHg BP Diastolic 72 mmHg Height 68 inches 5'8" Weight 160.00 lb BMI (Body Mass Index) 24.3 kg/m2 Last Menstrual Period 0 Respiratory Rate 14 /min 04/04/2012 2:10pm BP Systolic 145 mmHg BP Diastolic 78 mmHg Height 68 inches 5'8" Weight 160.00 lb BMI (Body Mass Index) 24.3 kg/m2 Heart Rate 80 /min Last Menstrual Period 0 Respiratory Rate 14 /min 01/16/2012 10:31am BP Systolic 180 mmHg BP Diastolic 90 mmHg BP Systolic Recheck 158 mmHg BP Diastolic Recheck 77 mmHg Height 68 inches 5'8" Weight 162.00 lb BMI (Body Mass Index) 24.6 kg/m2 Heart Rate 76 /min Last Menstrual Period 0 Respiratory Rate 14 /min Results Test Date Facility Test Result H/L Range Note CBC With Diff 05/23/2018 [facility] WBC 12.4 10*3/uL High (4.1-11.0) [address] [facility] ([facility])- - RBC 4.22 10*6/uL Low (4.60-6.10) HGB 13.8 g/dL (13.5-18.0) HCT 40.6 % Low (41.0-53.0) MCV 96.3 fL High (80.0-95.0) MCH 32.7 pg High (27.0-32.0) MCHC 34.0 g/dL (32.0-36.0) RDW 13.5 % (10.5-14.5) PLT 325 10*3/uL (150-450) MPV 6.8 fL Low (7.1-10.7) Neut % 75.0 % (35.0-75.0) Band % 2.0 % (0.0-11.0) Lymph % 15.0 % Low (16.0-52.0) [place] % 7.0 % (0.0-8.0) Eos % 1.0 % (0.0-5.0) Neut # 9.3 10*3/uL High (1.8-7.7) Band # 0.2 10*3/uL Lymph # 1.9 10*3/uL (1.2-4.8) [place] # 0.9 10*3/uL High (0.0-0.8) Eos # 0.1 10*3/uL (0.0-0.5) Filiberto 1+ CMP 05/23/2018 [facility] Sodium 136 mmol/L (136-145) [address] [facility] (607)- - Potassium 3.7 mmol/L (3.6-5.2) Chloride 98 mmol/L Low (100-108) Co2 29 mmol/L (22-31) Anion Gap 9 mmol/L (7-16) Urea Nitrogen 28 mg/dL High (7-24) Creatinine 1.19 mg/dL (0.80-1.30) BUN/Creat Ratio 23.5 RATIO High (10.0-20.0) Glucose 84 mg/dL (70-99) Calcium 8.8 mg/dL (8.4-10.2) Total Protein 6.2 g/dL Low (6.4-8.2) Albumin 3.5 g/dL (3.2-4.5) Globulin 2.7 g/dL (2.7-4.3) Alb/Glob Ratio 1.3 RATIO Alkaline Phosphatase 48 U/L (45-117) Bilirubin,Total 0.9 mg/dL (0.0-1.0) Ast (Sgot) 20 U/L (11-39) Alt (SGPT) 27 U/L (12-78) GFR 59 ml/min/1.73m2 Low (>59) GFR ( Amer) >60 ml/min/1.73m2 (>59) GFR Interpretation <SEE NOTE> 1 Lipid 05/23/2018 [facility] [place] Cholesterol @ 166 mg/dL (0-200) [address] [facility] (607)- - Triglyceride @ 102 mg/dL (30-200) HDL Cholesterol @ 63 mg/dL (>40) 2 Chol/HDL Ratio 2.6 RATIO 3 LDL Chol (Calc) 83 mg/dL (<130) 4 Laboratory 05/23/2018 [facility] TSH,Ultrasensitive @ 0.981 (0.360- 4.170) test finding [address] [facility] mIU/L (607)- - 25 Hydroxy Vit D @ 22 ng/mL Low (31-100) 5 PSA Free And 05/23/2018 [facility] PSA Total 4.4 ng/mL High (0.0-4.0) Total [address] [facility] (607)- - PSA Free 0.8 ng/mL PSA % Free 18 % 6 CBC Auto Diff 12/13/2017 [facility] White Blood 15.5 10^3/uL High 3.5 -10.8 Count Red Blood Count 5.14 10^6/uL N 4.0-5.4 Hemoglobin 16.1 g/dL N 14.0-18.0 Hematocrit 48 % N 42-52 Mean Corpuscular Volume 93 fL N 80-94 Mean Corpuscular Hemoglobin 31 pg N 27-31 Mean Corpuscular HGB Conc 34 g/dL N 31-36 Red Cell Distribution Width 14 % N 10.5-15 Platelet Count 287 10^3/uL N 150-450 7 Mean Platelet Volume 6.8 um3 Low 7.4-10.4 Abs Neutrophils 13.6 10^3/uL High 1.5-7.7 Abs Lymphocytes 1.3 10^3/uL N 1.0-4.8 Abs Monocytes 0.6 10^3/uL N 0-0.8 Abs Eosinophils 0 10^3/uL N 0-0.6 Abs Basophils 0 10^3/uL N 0-0.2 Abs Nucleated RBC 0 10^3/uL Granulocyte % 87.6 % High 38-83 Lymphocyte % 8.1 % Low 25-47 Monocyte % 4.2 % N 0-7 Eosinophil % 0 % N 0-6 Basophil % 0.1 % N 0-2 Nucleated Red Blood Cells % 0.1 Comp Metabolic Panel 12/13/2017 [facility] Sodium 137 mmol/L Low 139- 145 Potassium 3.7 mmol/L N 3.5-5.0 Chloride 98 mmol/L Low 101-111 Co2 Carbon Dioxide 27 mmol/L N 22-32 Anion Gap 12 mmol/L High 2-11 Glucose 114 mg/dL High 70-100 Blood Urea Nitrogen 23 mg/dL N 6-24 Creatinine 0.90 mg/dL N 0.67-1.17 BUN/Creatinine Ratio 25.6 High 8-20 Calcium 10.0 mg/dL N 8.6-10.3 Total Protein 7.1 g/dL N 6.4-8.9 Albumin 4.3 g/dL N 3.2-5.2 Globulin 2.8 g/dL N 2-4 Albumin/Globulin Ratio 1.5 N 1-3 Total Bilirubin 1.20 mg/dL High 0.2-1.0 Alkaline Phosphatase 50 U/L N 34-104 Alt 25 U/L N 7-52 Ast 25 U/L N 13-39 Egfr Non- 81.8 >60 Egfr 105.2 >60 8 Laboratory test 12/13/2017 [facility] Erythrocyte Sed Rate 5 mm/Hr N 0-40 9 finding Lyme Disease Serology Negative Negative 10 PSA Free And Total 09/19/2017 [facility] PSA Total 4.3 ng/mL <=6.5 PSA Free 0.9 ng/mL PSA Free/Total 0.21 ratio 11 Laboratory test 09/19/2017 [facility] Vitamin D Total 24.8 ng/mL N 20 -50 12 finding 25(Oh) Magnesium 1.7 mg/dL Low 1.9-2.7 13 Lipid Profile (Trig/Chol/HDL) 09/19/2017 [facility] Triglycerides 94 mg /dL 14 Cholesterol 152 mg/dL 15 HDL Cholesterol 43.3 mg/dL 16 LDL Cholesterol 90 mg/dL 17 Laboratory test 09/19/2017 [facility] TSH (Thyroid 1.84 mcIU/mL N 0.34-5.60 18 finding Stim Horm) Comp Metabolic 09/19/2017 [facility] Sodium 134 mmol/L N 133-145 Panel Potassium 4.1 mmol/L N 3.5-5.0 Chloride 99 mmol/L Low 101-111 Co2 Carbon Dioxide 27 mmol/L N 22-32 Anion Gap 8 mmol/L N 2-11 Glucose 96 mg/dL N 70-100 Blood Urea Nitrogen 16 mg/dL N 6-24 Creatinine 1.04 mg/dL N 0.67-1.17 BUN/Creatinine Ratio 15.4 N 8-20 Calcium 9.3 mg/dL N 8.6-10.3 Total Protein 7.1 g/dL N 6.4-8.9 Albumin 4.0 g/dL N 3.2-5.2 Globulin 3.1 g/dL N 2-4 Albumin/Globulin Ratio 1.3 N 1-3 Total Bilirubin 1.20 mg/dL High 0.2-1.0 Alkaline Phosphatase 58 U/L N 34-104 Alt 15 U/L N 7-52 Ast 23 U/L N 13-39 Egfr Non- 69.3 >60 Egfr 89.1 >60 19 CBC Auto Diff 09/19/2017 [facility] White Blood Count 8.6 10^3/uL N 3.5-10.8 Red Blood Count 4.81 10^6/uL N 4.0-5.4 Hemoglobin 14.9 g/dL N 14.0-18.0 Hematocrit 44 % N 42-52 Mean Corpuscular Volume 91 fL N 80-94 Mean Corpuscular Hemoglobin 31 pg N 27-31 Mean Corpuscular HGB Conc 34 g/dL N 31-36 Red Cell Distribution Width 14 % N 10.5-15 Platelet Count 338 10^3/uL N 150-450 Mean Platelet Volume 7 um3 Low 7.4-10.4 Abs Neutrophils 4.9 10^3/uL N 1.5-7.7 Abs Lymphocytes 1.7 10^3/uL N 1.0-4.8 Abs Monocytes 1.3 10^3/uL High 0-0.8 Abs Eosinophils 0.6 10^3/uL N 0-0.6 Abs Basophils 0.1 10^3/uL N 0-0.2 Abs Nucleated RBC 0 10^3/uL Granulocyte % 57.3 % N 38-83 Lymphocyte % 20.0 % Low 25-47 Monocyte % 15.1 % High 1-9 Eosinophil % 6.7 % High 0-6 Basophil % 0.9 % N 0-2 Nucleated Red Blood Cells % 0 CBC Auto Diff 03/23/2017 [facility] White Blood 10.9 10^3/uL High 3.5 -10.8 Count Red Blood Count 4.61 10^6/uL N 4.0-5.4 Hemoglobin 14.8 g/dL N 14.0-18.0 Hematocrit 45 % N 42-52 Mean Corpuscular Volume 97 fL High 80-94 Mean Corpuscular Hemoglobin 32 pg High 27-31 Mean Corpuscular HGB Conc 33 g/dL N 31-36 Red Cell Distribution Width 13 % N 10.5-15 Platelet Count 269 10^3/uL N 150-450 Mean Platelet Volume 7 um3 Low 7.4-10.4 Abs Neutrophils 7.4 10^3/uL N 1.5-7.7 Abs Lymphocytes 1.8 10^3/uL N 1.0-4.8 Abs Monocytes 1.2 10^3/uL High 0-0.8 Abs Eosinophils 0.3 10^3/uL N 0-0.6 Abs Basophils 0.1 10^3/uL N 0-0.2 Abs Nucleated RBC 0 10^3/uL N Granulocyte % 67.8 % N 38-83 Lymphocyte % 16.8 % Low 25-47 Monocyte % 11.4 % High 1-9 Eosinophil % 3.0 % N 0-6 Basophil % 1.0 % N 0-2 Nucleated Red Blood Cells % 0 N Comp Metabolic Panel 03/23/2017 [facility] Sodium 128 mmol/L Low 133- 145 Potassium 4.1 mmol/L N 3.5-5.0 Chloride 95 mmol/L Low 101-111 Co2 Carbon Dioxide 26 mmol/L N 22-32 Anion Gap 7 mmol/L N 2-11 Glucose 92 mg/dL N 70-100 Blood Urea Nitrogen 22 mg/dL N 6-24 Creatinine 1.08 mg/dL N 0.67-1.17 BUN/Creatinine Ratio 20.4 High 8-20 Calcium 9.2 mg/dL N 8.6-10.3 Total Protein 7.0 g/dL N 6.4-8.9 Albumin 4.1 g/dL N 3.2-5.2 Globulin 2.9 g/dL N 2-4 Albumin/Globulin Ratio 1.4 N 1-3 Total Bilirubin 1.50 mg/dL High 0.2-1.0 Alkaline Phosphatase 56 U/L N 34-104 Alt 14 U/L N 7-52 Ast 22 U/L N 13-39 Egfr Non- 66.3 N >60 Egfr 85.3 N >60 20 Laboratory test 03/23/2017 [facility] TSH (Thyroid Stim 1.55 mcIU/mL N 0.34-5.60 21 finding Horm) Lipid Profile 03/23/2017 [facility] Triglycerides 87 mg/dL N 22 (Trig/Chol/HDL) Cholesterol 121 mg/dL N 23 HDL Cholesterol 37.8 mg/dL N 24 LDL Cholesterol 66 mg/dL N 25 Laboratory test 03/23/2017 [facility] Vitamin D Total 31.4 ng/mL N 30 -50 26 finding 25(Oh) Magnesium 1.5 mg/dL Low 1.9-2.7 27 PSA Diagnostic 3.169 ng/mL N 0-4.000 28 Laboratory test 10/10/2016 [facility] Surgical SEE RESULT 29, 30 finding Pathology BELOW CBC Auto Diff 09/22/2016 [facility] White Blood 8.9 10^3/uL N 3.5-10 Count .8 Red Blood Count 4.64 10^6/uL N 4.0-5.4 Hemoglobin 14.6 g/dL N 14.0-18.0 Hematocrit 44 % N 42-52 Mean Corpuscular Volume 94 fL N 80-94 Mean Corpuscular Hemoglobin 31 pg N 27-31 Mean Corpuscular HGB Conc 33 g/dL N 31-36 Red Cell Distribution Width 14 % N 10.5-15 Platelet Count 273 10^3/uL N 150-450 Mean Platelet Volume 8 um3 N 7.4-10.4 Abs Neutrophils 5.1 10^3/uL N 1.5-7.7 Abs Lymphocytes 1.9 10^3/uL N 1.0-4.8 Abs Monocytes 1.2 10^3/uL High 0-0.8 Abs Eosinophils 0.7 10^3/uL High 0-0.6 Abs Basophils 0.1 10^3/uL N 0-0.2 Abs Nucleated RBC 0.01 10^3/uL N Granulocyte % 57.0 % N 38-83 Lymphocyte % 21.3 % Low 25-47 Monocyte % 13.1 % High 1-9 Eosinophil % 7.3 % High 0-6 Basophil % 1.3 % N 0-2 Nucleated Red Blood Cells % 0.1 N Comp Metabolic Panel 09/22/2016 [facility] Sodium 135 mmol/L N 133- 145 Potassium 3.7 mmol/L N 3.5-5.0 Chloride 98 mmol/L Low 101-111 Co2 Carbon Dioxide 30 mmol/L N 22-32 Anion Gap 7 mmol/L N 2-11 Glucose 98 mg/dL N 70-100 Blood Urea Nitrogen 13 mg/dL N 6-24 Creatinine 0.90 mg/dL N 0.67-1.17 BUN/Creatinine Ratio 14.4 N 8-20 Calcium 9.2 mg/dL N 8.6-10.3 Total Protein 6.6 g/dL N 6.4-8.9 Albumin 3.9 g/dL N 3.2-5.2 Globulin 2.7 g/dL N 2-4 Albumin/Globulin Ratio 1.4 N 1-3 Total Bilirubin 1.00 mg/dL N 0.2-1.0 Alkaline Phosphatase 57 U/L N 34-104 Alt 17 U/L N 7-52 Ast 24 U/L N 13-39 Egfr Non- 82.0 N >60 Egfr 105.5 N >60 31 Laboratory test 09/22/2016 [facility] TSH (Thyroid Stim 1.44 mcIU/mL N 0.34-5.60 32 finding Horm) Lipid Profile 09/22/2016 [facility] Triglycerides 108 mg/dL N 33 (Trig/Chol/HDL) Cholesterol 130 mg/dL N 34 HDL Cholesterol 38.2 mg/dL N 35 LDL Cholesterol 70 mg/dL N 36 Laboratory test 09/22/2016 [facility] Vitamin D Total 24.5 ng/mL Low 30-50 37 finding 25(Oh) Magnesium 1.7 mg/dL Low 1.9-2.7 38 PSA Free And Total 09/22/2016 [facility] PSA Total 2.7 ng/mL N <=6.5 PSA Free 0.7 ng/mL N PSA Free/Total See Comment ratio N 39 CBC Auto Diff 04/27/2016 [facility] White Blood Count 7.2 10^3/uL N 3.5-10.8 Red Blood Count 4.70 10^6/uL N 4.0-5.4 Hemoglobin 14.3 g/dL N 14.0-18.0 Hematocrit 44 % N 42-52 Mean Corpuscular Volume 93 fL N 80-94 Mean Corpuscular Hemoglobin 31 pg N 27-31 Mean Corpuscular HGB Conc 33 g/dL N 31-36 Red Cell Distribution Width 14 % N 10.5-15 Platelet Count 271 10^3/uL N 150-450 Mean Platelet Volume 7 um3 Low 7.4-10.4 Abs Neutrophils 3.9 10^3/uL N 1.5-7.7 Abs Lymphocytes 1.9 10^3/uL N 1.0-4.8 Abs Monocytes 1.1 10^3/uL High 0-0.8 Abs Eosinophils 0.3 10^3/uL N 0-0.6 Abs Basophils 0.1 10^3/uL N 0-0.2 Abs Nucleated RBC 0 10^3/uL N Granulocyte % 53.5 % N 38-83 Lymphocyte % 26.3 % N 25-47 Monocyte % 14.8 % High 1-9 Eosinophil % 4.1 % N 0-6 Basophil % 1.3 % N 0-2 Nucleated Red Blood Cells % 0 N Comp Metabolic Panel 04/27/2016 [facility] Sodium 132 mmol/L Low 133- 145 Potassium 4.0 mmol/L N 3.5-5.0 Chloride 99 mmol/L Low 101-111 Co2 Carbon Dioxide 26 mmol/L N 22-32 Anion Gap 7 mmol/L N 2-11 Glucose 102 mg/dL High 70-100 Blood Urea Nitrogen 14 mg/dL N 6-24 Creatinine 0.87 mg/dL N 0.67-1.17 BUN/Creatinine Ratio 16.1 N 8-20 Calcium 9.2 mg/dL N 8.6-10.3 Total Protein 6.5 g/dL N 6.4-8.9 Albumin 3.8 g/dL N 3.2-5.2 Globulin 2.7 g/dL N 2-4 Albumin/Globulin Ratio 1.4 N 1-3 Total Bilirubin 0.80 mg/dL N 0.2-1.0 Alkaline Phosphatase 51 U/L N 34-104 Alt 16 U/L N 7-52 Ast 23 U/L N 13-39 Egfr Non- 85.3 N >60 Egfr 109.7 N >60 40 Laboratory test 04/27/2016 [facility] TSH (Thyroid Stim 1.59 mcIU/mL N 0.34-5.60 41 finding Horm) Lipid Profile 04/27/2016 [facility] Triglycerides 52 mg/dL N 42 (Trig/Chol/HDL) Cholesterol 111 mg/dL N 43 HDL Cholesterol 40.6 mg/dL N 44 LDL Cholesterol 60 mg/dL N 45 Laboratory test 04/27/2016 [facility] Vitamin D Total 31.3 ng/mL N 30 -50 46 finding 25(Oh) PSA Diagnostic 4.271 ng/mL High 0-4.000 47 Magnesium 1.6 mg/dL Low 1.9-2.7 48 CBC Auto Diff 09/24/2015 [facility] White Blood Count 9.4 10^3/uL N 3.5-10.8 Red Blood Count 4.34 10^6/uL N 4.0-5.4 Hemoglobin 13.6 g/dL Low 14.0-18.0 Hematocrit 42 % N 42-52 Mean Corpuscular Volume 96 fL High 80-94 Mean Corpuscular Hemoglobin 31 pg N 27-31 Mean Corpuscular HGB Conc 33 g/dL N 31-36 Red Cell Distribution Width 14 % N 10.5-15 Platelet Count 311 10^3/uL N 150-450 Mean Platelet Volume 7 um3 Low 7.4-10.4 Abs Neutrophils 5.6 10^3/uL N 1.5-7.7 Abs Lymphocytes 2.2 10^3/uL N 1.0-4.8 Abs Monocytes 1.3 10^3/uL High 0-0.8 Abs Eosinophils 0.2 10^3/uL N 0-0.6 Abs Basophils 0.1 10^3/uL N 0-0.2 Abs Nucleated RBC 0 10^3/uL N Granulocyte % 59.8 % N 38-83 Lymphocyte % 23.3 % Low 25-47 Monocyte % 13.6 % High 1-9 Eosinophil % 2.4 % N 0-6 Basophil % 0.9 % N 0-2 Nucleated Red Blood Cells % 0 N Comp Metabolic Panel 09/24/2015 [facility] Sodium 133 mmol/L N 133- 145 Potassium 3.9 mmol/L N 3.5-5.0 Chloride 97 mmol/L Low 101-111 Co2 Carbon Dioxide 28 mmol/L N 22-32 Anion Gap 8 mmol/L N 2-11 Glucose 87 mg/dL N 70-100 Blood Urea Nitrogen 22 mg/dL N 6-24 Creatinine 1.03 mg/dL N 0.67-1.17 BUN/Creatinine Ratio 21.4 High 8-20 Calcium 9.6 mg/dL N 8.6-10.3 Total Protein 7.1 g/dL N 6.4-8.9 Albumin 4.4 g/dL N 3.2-5.2 Globulin 2.7 g/dL N 2-4 Albumin/Globulin Ratio 1.6 N 1-3 Total Bilirubin 1.40 mg/dL High 0.2-1.0 Alkaline Phosphatase 47 U/L N 34-104 Alt 16 U/L N 7-52 Ast 24 U/L N 13-39 Egfr Non- 70.4 N >60 Egfr 90.5 N >60 49 Lipid Profile 09/24/2015 [facility] Triglycerides 104 mg/dL N 50 (Trig/Chol/HDL) Cholesterol 130 mg/dL N 51 HDL Cholesterol 36.6 mg/dL N 52 LDL Cholesterol 73 mg/dL N 53 Laboratory test 09/24/2015 [facility] TSH (Thyroid 2.34 ?IU/mL N 0.34 -5.60 finding Stim Horm) Vitamin D Total 25(Oh) 31.9 ng/mL N 30-50 Magnesium 1.7 mg/dL Low 1.9-2.7 Laboratory test 05/10/2015 [facility] Thyroid Stim 1.51 uIU/mL 0.36-3.74 finding Hormone Vitamin D,25-Hydroxy 39.9 ng/mL 30.0-100.0 54 Prostate Specific Antigen 2.79 ng/mL 55 LDL Cholesterol Profile 05/10/2015 [facility] Cholesterol 124 mg/dL < 200 56 Triglycerides 93 mg/dL < 150 57 HDL Cholesterol 39 mg/dL > 40 58 LDL-Cholesterol 66 mg/dL < 100 59 Glycohemoglobin A1c 05/10/2015 [facility] Glycohemoglobin (A1c) 5.6 % 4.2- 6.3 60 eAG 114 mg/dL Comprehensive Metabolic Panel 05/10/2015 [facility] Glucose 86 mg/dL 74- 106 BUN 11 mg/dL 7-18 Creatinine 1.0 mg/dL 0.6-1.3 Glom Filtration Rate, Estimate >60 mL/min >60 If >60 mL/min >60 61 BUN/Creat 11.0 ratio Sodium 135 mmol/L Low [...] U/L 12-78 Alkaline Phosphatase 62 U/L 45-117 CBC W/Automated Diff 05/10/2015 [facility] White Blood Count 9.1 K/uL 3.4- 10.5 Red Blood Count 4.51 M/uL 4.20-5.80 Hemoglobin [...] % 33.0-73.0 Lymph % 20.2 % 17.0-56.0 [place] % 12.2 % High 0.0-10.0 Eo% 1.0 % 0.0-5.0 Bas% 0.4 % 0.1-1.0 Neut# 6.04 K/uL 1.8-7.0 Lymph # 1.84 K/uL 1.8-7.0 [place] # 1.11 K/uL High 0.0-0.8 Eos # 0.09 K/uL 0.0-0.5 Baso # 0.04 K/uL Low 0.1-0.2 Comprehensive Metabolic Panel 10/07/2014 [facility] Sodium 136 mmol/L N 133-145 Potassium 4.2 mmol/L N 3.5-5.0 Chloride 100 mmol/L Low 101-111 Co2 Carbon Dioxide 29 mmol/L N 22-32 Anion Gap 7 mmol/L N 2-11 Glucose 100 mg/dL N 70-100 Blood Urea Nitrogen 17 mg/dL N 6-24 Creatinine 1.04 mg/dL N 0.67-1.17 BUN/Creatinine Ratio 16.3 N 8-20 Calcium 9.2 mg/dL N 8.6-10.3 Total Protein 7.2 g/dL N 6.4-8.9 Albumin 4.4 g/dL N 3.2-5.2 Globulin 2.8 g/dL N 2-4 Albumin/Globulin Ratio 1.6 N 1-3 Total Bilirubin 1.00 mg/dL N 0.2-1.0 Alkaline Phosphatase 54 U/L N 34-104 Alt 21 U/L N 7-52 Ast 23 U/L N 13-39 Egfr Non- 69.8 N >60 Egfr 89.8 N >60 62 CBC W/Automated Diff 10/07/2014 [facility] White Blood 9.2 10^3/uL N 4.8-10.8 Count Red Blood Count 4.70 10^6/uL N 4.0-5.4 Hemoglobin 15.0 g/dL N 14.0-18.0 Hematocrit 45 % N 42-52 Mean Corpuscular Volume 97 fL High 80-94 Mean Corpuscular Hemoglobin 32 pg High 27-31 Mean Corpuscular HGB Conc 33 g/dL N 31-36 Red Cell Distribution Width 13 % N 10.5-15 Platelet Count 273 10^3/uL N 150-450 Mean Platelet Volume 8 um3 N 7.4-10.4 Abs Neutrophils 5.5 10^3/uL N 1.5-7.7 Abs Lymphocytes 2.3 10^3/uL N 1.0-4.8 Abs Monocytes 1.1 10^3/uL High 0-0.8 Abs Eosinophils 0.2 10^3/uL N 0-0.6 Abs Basophils 0.1 10^3/uL N 0-0.2 Abs Nucleated RBC 0.01 10^3/uL N Granulocyte % 59.9 % N 38-83 Lymphocyte % 24.5 % Low 25-47 Monocyte % 12.3 % High 1-9 Eosinophil % 2.7 % N 0-6 Basophil % 0.6 % N 0-2 Nucleated Red Blood Cells % 0.1 N Laboratory test 10/07/2014 [facility] TSH (Thyroid 2.55 IU/mL N 0.34- 5.60 finding Stimulating Horm) Hemoglobin A1c 5.9 % N Less than 6.0 63 Vitamin D,25-Hydroxy 10/07/2014 [facility] 25-Hydroxy Vitamin D2 <4.0 ng/mL N 25-Hydroxy Vitamin D3 19 ng/mL N 25-Hydroxy Vitamin D Total 19 ng/mL Abnormal 64 Laboratory test 10/07/2014 [facility] LDL Cholesterol Direct 82 mg/dL N 65 finding PSA Screening 2.343 ng/mL N 0-4.000 66 Laboratory test 03/31/2014 [facility] Thyroid Stim 1.96 uIU/mL 0.49-4.67 finding Hormone LDL Cholesterol 03/31/2014 [facility] Cholesterol 126 mg/dL 120-200 Profile Triglycerides 93 mg/dL 16-231 HDL Cholesterol 37 mg/dL 29-83 LDL-Cholesterol 70 mg/dL 62-185 Laboratory test 03/31/2014 [facility] C-Reactive 4.58 mg/L High 0.00-3.00 67 finding Protein,Cardiac Sedimentation Rate 10 mm/hr 0-20 Comprehensive Metabolic Panel 03/31/2014 [facility] Glucose 65 mg/dL Low 76 -115 BUN 14 mg/dL 5-23 Creatinine 0.8 mg/dL 0.5-1.4 Glom Filtration Rate, Estimate >60 mL/min >60 If >60 mL/min >60 68 BUN/Creat 17.5 ratio Sodium 138 mmol/L 136-145 [...] 65 U/L 50-136 CBC W/Automated Diff 03/31/2014 [facility] White Blood Count 8.5 K/uL 3.4- 10.5 Red Blood Count 4.54 M/uL 4.20-5.80 Hemoglobin [...] % 33.0-73.0 Lymph % 24.1 % 17.0-56.0 [place] % 12.4 % High 0.0-10.0 Eo% 2.5 % 0.0-5.0 Bas% 0.6 % 0.1-1.0 Neut# 5.13 K/uL 1.8-7.0 Lymph # 2.05 K/uL 1.2-4.0 [place] # 1.05 K/uL High 0.0-0.6 Eos # 0.21 K/uL 0.0-0.5 Baso # 0.05 K/uL Low 0.1-0.2 Basic Metabolic Panel 04/07/2013 [facility] Glucose 65 mg/dL Low 76-115 BUN 10 mg/dL 5-23 Creatinine 0.9 mg/dL 0.5-1.4 Glom Filtration Rate, Estimate >60 mL/min >60 If >60 mL/min >60 69 BUN/Creat 11.1 ratio Sodium 137 mmol/L 136-145 Potassium 4.2 mmol/L 3.5-5.1 Chloride 101 mmol/L 98-107 Carbon Dioxide 25 mEq/L 18-29 Anion Gap 15 mEq/L 8-16 Calcium 9.0 mg/dL 8.5-10.1 CBC/Manual Differential 04/07/2013 [facility] White Blood Count 8.5 K/uL 3.4-10.5 Red [...] 1+ Macrocytosis 0-1+ Differential Comment See Note 70 Laboratory test 04/07/2013 [facility] C-Reactive 4.15 mg/L High 0.00-3.00 71 finding Protein,Cardiac Sedimentation Rate 2 mm/hr 0-20 LDL Cholesterol Profile 04/07/2013 [facility] Cholesterol 126 mg/dL 120- 200 Triglycerides 119 mg/dL 16-231 HDL Cholesterol 33 mg/dL 29-83 LDL-Cholesterol 69 mg/dL 62-185 Liver Function Tests 04/07/2013 [facility] Total Protein 7.1 g/dL 6.3-8.0 Albumin 3.9 g/dL 3.5-5.0 Globulin 3.2 g/dL 1.9-4.3 Alb/Glob 1.2 ratio Bilirubin,Total 0.7 mg/dL 0.2-1.2 Bilirubin,Direct 0.2 mg/dL 0.1-0.4 Bilirubin,Indirect 0.5 mg/dL 0.0-0.9 Sgot/Ast 29 U/L 16-40 SGPT/Alt 32 U/L 30-65 Alkaline Phosphatase 84 U/L 50-136 Laboratory test 04/07/2013 [facility] Prostate Specific 2.82 ng/mL 0.0- 4.0 72 finding Antigen Thyroid Stim Hormone 1.79 uIU/mL 0.49-4.67 Laboratory test 10/03/2012 [facility] TSH (Thyroid 1.72 miu/mL 0.34- 5.60 finding Stimulating Horm) Erythrocyte Sed Rate 29 mm/Hr 0-40 CRP High Sensitivity 4.1 mg/L 73 PSA Screening 2.8 ng/mL 0-4.0 74 Liver Function Panel 10/03/2012 [facility] Total Protein 6.2 g/dL 6.2-8.1 Albumin 3.8 g/dL 3.2-5.2 Globulin 2.4 g/dL 2-4 Albumin/Globulin Ratio 1.6 1-3 Total Bilirubin 0.8 mg/dL 0.4-1.5 Direct Bilirubin 0.2 mg/dL 0.1-0.5 Indirect Bilirubin 0.6 mg/dL 0.3-1.0 Alkaline Phosphatase 53 U/L 30-110 Alt 23 U/L 14-54 Ast 27 U/L 12-42 Lipid Profile 10/03/2012 [facility] Triglycerides 114 mg/dL 40-200 (Trig/Chol/HDL) Cholesterol 127 mg/dL Less than 200 HDL Cholesterol 30 mg/dL Low 40-60 75 Cholesterol/HDL Ratio 4.2 Average 1-4.44 LDL Cholesterol 74.2 mg/dL Less Than 100 76 CBC Auto Diff 10/03/2012 [facility] White Blood Count 8.9 10^3/uL 4.8-10.8 Red [...] Cells % 0.1 Basic Metabolic Panel 10/03/2012 [facility] Sodium 135 mmol/L 133- 145 Potassium 4.2 mmol/L 3.5-5.0 Chloride 102 mmol/L 101-111 Co2 Carbon Dioxide 25.0 mmol/L 22-32 Anion Gap 8.0 mmol/L 2-11 Glucose 91 mg/dL 70-100 Blood Urea Nitrogen 13 mg/dL 6-24 Creatinine 1.00 mg/dL 0.50-1.40 BUN/Creatinine Ratio 13.0 8-20 Calcium 9.2 mg/dL 8.1-9.9 Egfr Non- 73.5 >60 Egfr 94.5 >60 77 CBC Auto Diff 04/17/2012 [facility] White Blood Count 8.3 CUMM 4.8- 10.8 Red Cell Count 4.85 CUMM 4.6-6.2 Hemoglobin [...] Basophils 0.1 0-0.2 Laboratory test finding 04/17/2012 [facility] PSA 3.11 NG/ML 0-4 78 Lipid Profile 04/17/2012 [facility] Triglyceride 114 mg/dL 40-200 (Trig/Chol/HDL) Cholesterol 153 mg/dL Less Than 200 79 High Density Lipoprotein 39 mg/dL Low 40-60 80 Cholesterol/HDL Ratio 3.92 AVERAGE 1-4.97 Low Density Lipoprotein 91 mg/dL Less Than 100 81 Comp Metabolic Panel 04/17/2012 [facility] Sodium 134 mmol/L Low 135- 145 Potassium 5.0 mmol/L 3.5-5.0 Chloride 99 mmol/L Low 101-111 Co2 (Carbon Dioxide) 28.0 mmol/L 22-32 Anion Gap 7.0 mmol/L 2-11 82 Glucose 89 mg/dL 70-100 BUN 8 mg/dL 6-24 Creatinine 0.9 mg/dL 0.50-1.40 One Over Creatinine 1.11 BUN/Creatinine Ratio 8.9 8-20 Calcium 9.6 mg/dL 8.1-9.9 Total Protein 6.9 GM/DL 6.2-8.1 Albumin 4.2 GM/DL 3.2-5.2 Globulin 2.7 GM/DL 2-4 Albumin/Globulin Ratio 1.6 1-3 Bilirubin Total 1.1 mg/dL 0.4-1.5 83 Alkaline Phosphatase 68 U/L 39-117 Alt (SGPT) 23 U/L 17-63 Ast (Sgot) 31 U/L 12-42 eGFR Non- 82.9 > 60 eGFR 106.7 > 60 84 1 NORMAL KIDNEY FUNCTION OR MILD DISEASE - GFR >OR=60 CHRONIC KIDNEY DISEASE - GFR 15 - 59 RENAL FAILURE - GFR <15 Est. GFR calculation based on the MDRD study equation, which assumes a steady state for creatinine. Est. GFR should not be used for medication dosing. 2 PER NCEP ATP III GUIDELINES: RESULTS LOWER THAN 40 MG/DL ARE SUGGESTIVE OF INCREASED RISK FOR CORONARY ARTERY DISEASE. RESULTS > OR=TO 60 MG/DL ARE CONSIDERED A NEGATIVE RISK FACTOR. 3 INTERPRETATION OF CHOL-HDL RATIO CHD RISK FEMALE MALE VERY HIGH >8.3 >14.3 HIGH 5.6- 8.3 6.7- 14.3 AVERAGE 3.7- 5.6 4.0- 6.7 BELOW AVERAGE 2.5- 3.7 2.7- 4.0 PROTECTED <2.5 <2.7 4 PER NCEP ATP III GUIDELINES: OPTIMAL < 100 NEAR OPTIMAL 100 - 129 BORDERLINE HIGH 130 - 159 HIGH 160 - 189 VERY HIGH > 189 5 A REVIEW OF THE LITERATURE SUGGESTS THE FOLLOWING RANGES FOR THE CLASSIFICATION OF 25-OH VITAMIN D STATUS: VITAMIN D STATUS 25-OH VITAMIN D DEFICIENCY <20 NG/ML INSUFFICIENCY 20-30 NG/ML SUFFICIENCY 31 - 100 NG/ML TOXICITY > 100 NG/ML A PEDIATRIC REFERENCE RANGE HAS NOT BEEN ESTABLISHED USING THIS METHOD. 6 % FREE PSA PROBABILITY OF CANCER 0 - 10% 56% 10 - 15% 28% 15 - 20% 20% 20 - 25% 16% GREATER THAN 25% 8% THE FREE PSA PERCENTAGE IS AN AID IN DISTINGUISHING PROSTATE CANCER FROM BENIGN PROSTATIC CONDITIONS IN MEN AGE 50 AND OLDER WITH A TOTAL PSA BETWEEN 3 AND 10 NG/ML AND NEGATIVE DIGITAL RECTAL EXAMINATION FINDINGS. PROSTATIC BIOPSY IS REQUIRED FOR THE DIAGNOSIS OF CANCER. (See: BRENDA 1998; 279: 0013-8103) METHOD USED TO ASSAY BOTH FREE PSA AND TOTAL PSA IS [employer] LOCI CHEMILUMINESCENT IMMUNOASSAY (CALIBRATION TRACEABLE TO WHO 1998, 96/668). RESULTS SHOULD NOT BE INTERPRETED ABSOLUTE EVIDENCE FOR THE PRESENCE OR ABSENCE OF MALIGNANT DISEASE. VALUES OBTAINED WITH DIFFERENT ASSAY METHODS OR KITS CANNOT BE USED INTERCHANGEABLY. 7 Platelet count confirmed by estimate 8 Because ethnic data is not always readily [...] 15-29 5 Kidney failure <15 (or dialysis) 9 [id number] 10 Serologic response to B. burgdorferi infection is not detected, but cannot rule out early infection during which low or undetectable antibody levels to B. burgdorferi may be present. If clinically indicated, a new serum specimen should be submitted in 7-14 days. Test Performed by: [facility] - [address] [address] 11 When total PSA is in the range [...] Inc. and performed on the Modular or [employer] system. Values obtained with different assay methods or kits may be different and cannot be used interchangeably. Test results cannot be interpreted as absolute evidence for the presence or absence of malignant disease. Test Performed by: [facility] - [address] [address] 12 [id number] 14 Desirable: <150 Borderline High: 150-199 High: 200-499 Very High: >500 15 Desirable: <200 Borderline High: 200-239 High: >239 16 Low: <40 Desirable: 40-60 High: >60 17 Desirable: <100 Near Optimal: 100-129 Borderline High: 130-159 High: 160-189 Very High: >189 18 [id number] 19 Because ethnic data is not always readily [...] 15-29 5 Kidney failure <15 (or dialysis) 20 Because ethnic data is not always readily [...] 15-29 5 Kidney failure <15 (or dialysis) 21 [id number] 22 Desirable <150 Borderline high 150-199 High 200-499 Very High >500 23 Desirable <200 Borderline high 200-239 High >239 24 Low <40 Desirable: 40-60 High: >60 25 Desirable: <100 mg/dL Near Optimal: 100-129 mg/dL Borderline High: 130-159 mg/dL High: 160-189 mg/dL Very High: >189 mg/dL 26 [id number] 27 [id number] 28 Serum levels of PSA measured using the [employer] DXI Hybritech immunoassay should not be interpreted as absolute evidence of the presence or absence of disease. The PSA value should be used in conjunction with other pertinent clinical diagnostic procedures. The values obtained with different assay methods or kits cannot be used interchangeably. 29 [id number] 30 SEE RESULT BELOW Name: BLADE SANCHEZ : [address]: Santosh Valadez MD Acct: [id number] Unit: [id number] AGE: 76 Location: [facility] Re10/10/16 SEX: M Status: DEP REF SPEC: [id number] KRISTI: 10/10/16-12[address] [facility] [address]: Santosh Valadez MD REQ: [id number] RECD: 10/10/16735 STATUS: ESTEBAN VALLADARES DR: Gal Stover MD _ ORDERED: LEVEL IV/2 COMMENTS: [id number] FINAL DIAGNOSIS 1. Colon, cecum, biopsy: -- [...] performed at Main Lab DEPARTMENT OF PATHOLOGY, [address] [place] [address] Abraham Cat M.D. Director [facility] # [id number] 31 Because ethnic data is not always readily [...] 15-29 5 Kidney failure <15 (or dialysis) 32 [id number] 33 Desirable <150 Borderline high 150-199 High 200-499 Very High >500 34 Desirable <200 Borderline high 200-239 High >239 35 Low <40 Desirable: 40-60 High: >60 36 Desirable: <100 mg/dL Near Optimal: 100-129 mg/dL Borderline High: 130-159 mg/dL High: 160-189 mg/dL Very High: >189 mg/dL 37 [id number] 39 Ratio not calculated because clinical usefulness is [...] absence of malignant disease. Test Performed by: [address] [address] Radiological Health Specialist: Mauricio Mayes II, M.D., Ph.D. 40 Because ethnic data is not always readily [...] 15-29 5 Kidney failure <15 (or dialysis) 41 [facility] [address] 42 Desirable <150 Borderline high 150-199 High 200-499 Very High >500 43 Desirable <200 Borderline high 200-239 High >239 44 Low <40 Desirable: 40-60 High: >60 45 Desirable: <100 mg/dL Near Optimal: 100-129 mg/dL Borderline High: 130-159 mg/dL High: 160-189 mg/dL Very High: >189 mg/dL 46 [facility] [address] 47 Serum levels of PSA measured using the [employer] DXI Hybritech immunoassay should not be interpreted as absolute evidence of the presence or absence of disease. The PSA value should be used in conjunction with other pertinent clinical diagnostic procedures. The values obtained with different assay methods or kits cannot be used interchangeably. 48 [facility] [address] 49 Because ethnic data is not always readily [...] 15-29 5 Kidney failure <15 (or dialysis) 50 Desirable <150 Borderline high 150-199 High 200-499 Very High >500 51 Desirable <200 Borderline high 200-239 High >239 52 Low <40 Desirable: 40-60 High: >60 53 Desirable: <100 mg/dL Near Optimal: 100-129 mg/dL Borderline High: 130-159 mg/dL High: 160-189 mg/dL Very High: >189 mg/dL 54 Vitamin D deficiency has been defined by the [place] [employer] and an Endocrine Society practice guideline as a level of serum 25-OH vitamin D less than 20 ng/mL (1,2). The Endocrine Society went on to further define vitamin D insufficiency as a level between 21 and 29 ng/mL (2). 1. IOM ([place] [employer]). 2010. Dietary reference intakes for calcium and D. [place]: The National Academies Press. 2. Raquel MF, Tanesha SALAZAR, Jaspal BRADLEY, et al. Evaluation, treatment, and prevention of vitamin D deficiency: an Endocrine Society clinical practice guideline. JCEM. 2010; 96(7):1911-30. Performed at: - [facility] [id number] Forest Officer: Gricelda Centeno MD, Phone: [phone] 55 THIS ASSAY IS NOT INTENDED A CANCER SCREENING TEST The concentration of PSA in a given specimen, determined with assays from different manufacturers, can vary due to differences in assay methods and reagent specificity. Values obtained from different assay methods cannot be used interchangeably. 56 Reference Guidelines*: Desirable: ........... < 200 mg/dL Borderline High: ..... 200-239 mg/dL High: ................ >=240 mg/dL * The National Cholesterol Education Program (NCEP) 57 Reference Guidelines*: Normal: ............. < 150 mg/dL Borderline High: .... 150-199 mg/dL High: ............... 200-499 mg/dL Very High: .......... > 500 mg/dL * Source: National Cholesterol Education Program (NCEP) 58 Reference Guidelines*: Low HDL: ..... < 40 mg/dL Normal: ..... 40-60 mg/dL Desirable: ... > 60 mg/dL *The National Cholesterol Education Program(NCEP) 59 Reference Guidelines*: Optimal:........... <100 mg/dL Near Optimal....... 100-129 mg/dL Borderline High.... 130-159 mg/dL High............... 160-189 mg/dL Very High.......... >=190 mg/dL * Source: National Cholesterol Education Program (NCEP) 60 Elevated levels of HbA1c suggest the need for more aggressive treatment of glycemia. The [place] [employer] recommends that a primary goal of therapy should be a HbA1c of <7% and that physicians should re-evaluate the treatment regimen in patients with HbA1c values consistently >8%. 61 Note: Persistent reduction for 3 months or more in an eGFR <60 mL/min/1.73 m2 defines CKD. Patients with eGFR values >/=60 mL/min/1.73 m2 may also have CKD if evidence of persistent proteinuria is present. The original MDRD equation for estimated GFR is not valid for patients less than 18 years of age. Additional information may be found at www.kdoqi.org. 62 Because ethnic data is not always readily [...] 15-29 5 Kidney failure <15 (or dialysis) 63 Therapeutic target for the treatment of diabetes Mellitus patients is <7% HBA1C, and in selective patients <6.0%.Please refer to [place] [employer] Diabetic care guidelines for further information. 64 Interpretation: 10-19 ng/mL (mild to moderate deficiency) REFERENCE VALUE 25-HYDROXY D TOTAL (D2+D3) Optimum levels in the healthy population are 20-50, patients with bone disease may benefit from higher levels within this range. Test Performed by: [place] [address] Radiological Health Specialist: Prosper Dias M.D. 65 Desirable <100 Near Optimal 100-129 Borderline high 130-159 High 160-189 Very High >189 66 Serum levels of PSA measured using the [employer] DXI Hybritech immunoassay should not be interpreted as absolute evidence of the presence or absence of disease. The PSA value should be used in conjunction with other pertinent clinical diagnostic procedures. The values obtained with different assay methods or kits cannot be used interchangeably. 67 Relative Risk for Future Cardiovascular Event Low <1.00 Average 1.00 - 3.00 High >3.00 68 Note: Persistent reduction for 3 months or more in an eGFR <60 mL/min/1.73 m2 defines CKD. Patients with eGFR values >/=60 mL/min/1.73 m2 may also have CKD if evidence of persistent proteinuria is present. The original MDRD equation for estimated GFR is not valid for patients less than 18 years of age. Additional information may be found at www.kdoqi.org. 69 Note: Persistent reduction for 3 months or more in an eGFR <60 mL/min/1.73 m2 defines CKD. Patients with eGFR values >/=60 mL/min/1.73 m2 may also have CKD if evidence of persistent proteinuria is present. The original MDRD equation for estimated GFR is not valid for patients less than 18 years of age. Additional information may be found at www.kdoqi.org. 70 FEW LRG PLTS SEEN 71 Relative Risk for Future Cardiovascular Event Low <1.00 Average 1.00 - 3.00 High >3.00 72 THIS ASSAY IS NOT INTENDED A CANCER SCREENING TEST The concentration of PSA in a given specimen, determined with assays from different manufacturers, can vary due to differences in assay methods and reagent specificity. Values obtained from different assay methods cannot be used interchangeably. 73 Less Than 1.0......Low Risk of Cardiovascular Disease 1.0-3.0............Medium Risk (<2 Fold Increase) Greater Than 3.0...High Risk (Approximately 2-Fold Increase) 74 Serum levels of PSA measured using the [employer] DXI Hybritech immunoassay should not be interpreted as absolute evidence of the presence or absence of disease. The PSA value should be used in conjunction with other pertinent clinical diagnostic procedures. The values obtained with different assay methods or kits cannot be used interchangeably. 75 HDL Interpretation: Undesirable: High Risk: Less than 40 MG/DL Desirable: Low Risk: Greater than 60 MG/DL 76 LDL Interpretation: Low Risk Optimal Level: LDL Less than 100 MG/DL Near or Above Optimal: LDL 100-129 MG/DL Borderline High Risk: LDL 130-159 MG/DL High Risk: LDL 160-189 MG/DL Very High Risk: LDL Greater than 189 MG/DL 77 Because ethnic data is not always readily [...] 15-29 5 Kidney failure <15 (or dialysis) 78 * SERUM LEVELS OF PSA MEASURED USING THE [employer] HYBRITECH IMMUNOASSAY SHOULD NOT BE INTERPRETED ABSOLUTE EVIDENCE OF THE PRESENCE OR ABSENCE OF DISEASE. THE PSA VALUE SHOULD BE USED IN CONJUNCTION WITH OTHER PERTINENT CLINICAL DIAGNOSTIC PROCEDURES. The values obtained with different assay methods or kits cannot be used interchangeably. 79 CHOLESTEROL INTERPRETATION: Desirable: Less than 200 MG/DL Borderline-High Risk: 200-239 MG/DL High-Risk: 240 MG/DL and over 80 HDL INTERPRETATION: Undesirable: High Risk: Less than 40 MG/DL Desirable: Low Risk: Greater than 60 MG/DL 81 LDL INTERPRETATION: Low Risk Optimal Level: LDL Less than 100 MG/DL Near or Above Optimal: LDL 100-129 MG/DL Borderline High Risk: LDL 130-159 MG/DL High Risk: LDL 160-189 MG/DL Very High Risk: LDL Greater than 189 MG/DL 82 Anion gap measurement may be of limited value in the presence of any alkalosis, especially in a combined acid base disorder. . 83 A metabolite of Naproxen, O-desmethylnaproxen, has been shown to interfere with the Jendrassik-Lavinia method for measuring total bilirubin. Samples from patients who have taken Naproxen have shown spurious elevation in total bilirubin levels. 84 Because ethnic data is not always readily [...] Kidney failure <15 (or dialysis) Procedures Date Code Description Status 02/07/2019 27965 Spirometry Completed 02/07/2019 30569 Tympanometry Completed 10/21/2018 48661 Injection DX/Therapeutic/Prophy Completed 10/21/2018 41583 Spirometry Completed 10/21/2018 54334 Tympanometry Completed 07/30/2018 80294 Injection DX/Therapeutic/Prophy Completed 07/30/2018 01560 Spirometry Completed 07/30/2018 43135 Tympanometry Completed 05/23/2018 97723 Visual Screening Test Completed 05/23/2018 18242 EKG Completed 05/23/2018 78638 Audiometry, Bekesy, Screening Completed 05/01/2018 76292 Injection DX/Therapeutic/Prophy Completed 05/01/2018 86546 Spirometry Completed 05/01/2018 72608 Tympanometry Completed 12/20/2017 16344 Tympanometry Completed 12/20/2017 91087 Spirometry Completed 12/20/2017 77340 Injection DX/Therapeutic/Prophy Completed 10/10/2016 34676709 Colonoscopy Completed 04/27/2016 25672 EKG Completed 05/10/2015 67763 Visual Screening Test Completed 05/10/2015 49943 EKG Completed 05/10/2015 01305 Audiometry, Bekesy, Screening Completed 03/31/2014 58386 EKG Completed 07/31/2013 83175 Spirometry Completed 07/31/2013 85837 Tympanometry Completed 10/17/2012 94309 EKG Completed 10/03/2012 14867 Spirometry Completed 08/17/2011 44725 Injection DX/Therapeutic/Prophy Completed 02/16/2009 66630 EKG Completed 01/05/2009 83420 Spirometry Completed 01/05/2009 59577 Tympanometry Completed 02/21/2006 89041 EKG Completed Encounters Type Date Location Provider Dx Diagnosis Office Visit 02/07/2019 [facility] Mauricio Mann, I10 Essential ( primary) 3:45p N.P. hypertension E78.2 Mixed hyperlipidemia J44.9 Chronic obstructive pulmonary disease, unspecified I25.10 Athscl heart disease of [place] coronary artery w/o ang pctrs E55.9 Vitamin D deficiency, unspecified N40.0 Benign prostatic hyperplasia without lower urinry tract symp K21.0 Gastro-esophageal reflux disease with esophagitis J30.2 Other seasonal allergic rhinitis M15.9 Polyosteoarthritis, unspecified M54.5 Low back pain R06.02 Shortness of breath R60.0 Localized edema E83.42 Hypomagnesemia R97.20 Elevated prostate specific antigen [PSA] M54.6 Pain in thoracic spine I87.2 Venous insufficiency (chronic) (peripheral) H10.403 Unspecified chronic conjunctivitis, bilateral H91.8x3 Other specified hearing loss, bilateral L20.9 Atopic dermatitis, unspecified F17.210 Nicotine dependence, cigarettes, uncomplicated J30.9 Allergic rhinitis, unspecified J18.9 Pneumonia, unspecified organism H92.03 Otalgia, bilateral H10.022 Other mucopurulent conjunctivitis, left eye H10.45 Other chronic allergic conjunctivitis B37.0 Candidal stomatitis S22.000A Wedge compression fracture of unsp thoracic vertebra, init Office Visit 10/28/2018 2:15p [facility] Mauricio Mann, I10 Essential (primary) N.P. 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 E55.9 Vitamin D deficiency, unspecified N40.0 Benign prostatic hyperplasia without lower urinry tract symp K21.0 Gastro-esophageal reflux disease with esophagitis J30.2 Other seasonal allergic rhinitis M15.9 Polyosteoarthritis, unspecified M54.5 Low back pain R06.02 Shortness of breath R60.0 Localized edema E83.42 Hypomagnesemia R97.20 Elevated prostate specific antigen [PSA] M54.6 Pain in thoracic spine I87.2 Venous insufficiency (chronic) (peripheral) H10.403 Unspecified chronic conjunctivitis, bilateral H91.8x3 Other specified hearing loss, bilateral L20.9 Atopic dermatitis, unspecified F17.210 Nicotine dependence, cigarettes, uncomplicated J30.9 Allergic rhinitis, unspecified J18.9 Pneumonia, unspecified organism H92.03 Otalgia, bilateral H10.022 Other mucopurulent conjunctivitis, left eye H10.45 Other chronic allergic conjunctivitis B37.0 Candidal stomatitis S22.000A Wedge compression fracture of unsp thoracic vertebra, init Office Visit 10/21/2018 2:00p [facility] Mauricio Mann, I10 Essential (primary) N.P. 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 E55.9 Vitamin D deficiency, unspecified N40.0 Benign prostatic hyperplasia without lower urinry tract symp K21.0 Gastro-esophageal reflux disease with esophagitis J30.2 Other seasonal allergic rhinitis M15.9 Polyosteoarthritis, unspecified M54.5 Low back pain R06.02 Shortness of breath R60.0 Localized edema E83.42 Hypomagnesemia R97.20 Elevated prostate specific antigen [PSA] M54.6 Pain in thoracic spine I87.2 Venous insufficiency (chronic) (peripheral) H10.403 Unspecified chronic conjunctivitis, bilateral H91.8x3 Other specified hearing loss, bilateral L20.9 Atopic dermatitis, unspecified F17.210 Nicotine dependence, cigarettes, uncomplicated J30.9 Allergic rhinitis, unspecified J18.9 Pneumonia, unspecified organism H92.03 Otalgia, bilateral H10.022 Other mucopurulent conjunctivitis, left eye H10.45 Other chronic allergic conjunctivitis B37.0 Candidal stomatitis Office Visit 09/25/2018 2:30p [place] [facility] Mauricio Mann, I10 Essential (primary) N.P. hypertension E78.2 Mixed hyperlipidemia J44.9 Chronic obstructive pulmonary disease, unspecified I25.10 Athscl heart disease of [place] coronary artery w/o ang pctrs E55.9 Vitamin D deficiency, unspecified N40.0 Benign prostatic hyperplasia without lower urinry tract symp K21.0 Gastro-esophageal reflux disease with esophagitis J30.2 Other seasonal allergic rhinitis M15.9 Polyosteoarthritis, unspecified M54.5 Low back pain R06.02 Shortness of breath R60.0 Localized edema E83.42 Hypomagnesemia R97.20 Elevated prostate specific antigen [PSA] M54.6 Pain in thoracic spine I87.2 Venous insufficiency (chronic) (peripheral) H10.403 Unspecified chronic conjunctivitis, bilateral H91.8x3 Other specified hearing loss, bilateral L20.9 Atopic dermatitis, unspecified F17.210 Nicotine dependence, cigarettes, uncomplicated J30.9 Allergic rhinitis, unspecified J18.9 Pneumonia, unspecified organism H92.03 Otalgia, bilateral H10.022 Other mucopurulent conjunctivitis, left eye H10.45 Other chronic allergic conjunctivitis B37.0 Candidal stomatitis Office Visit 08/30/2018 1:45p [facility] Mauricio Mann, I10 Essential (primary) N.P. hypertension E78.2 Mixed hyperlipidemia J44.9 Chronic obstructive pulmonary disease, unspecified I25.10 Athscl heart disease of [place] coronary artery w/o ang pctrs E55.9 Vitamin D deficiency, unspecified N40.0 Benign prostatic hyperplasia without lower urinry tract symp K21.0 Gastro-esophageal reflux disease with esophagitis J30.2 Other seasonal allergic rhinitis M15.9 Polyosteoarthritis, unspecified M54.5 Low back pain R06.02 Shortness of breath R60.0 Localized edema E83.42 Hypomagnesemia R97.20 Elevated prostate specific antigen [PSA] M54.6 Pain in thoracic spine I87.2 Venous insufficiency (chronic) (peripheral) H10.403 Unspecified chronic conjunctivitis, bilateral H91.8x3 Other specified hearing loss, bilateral L20.9 Atopic dermatitis, unspecified F17.210 Nicotine dependence, cigarettes, uncomplicated J30.9 Allergic rhinitis, unspecified J18.9 Pneumonia, unspecified organism H92.03 Otalgia, bilateral H10.022 Other mucopurulent conjunctivitis, left eye H10.45 Other chronic allergic conjunctivitis Office Visit 08/06/2018 3:00p [facility] Gal Stover I10 Eve ( primary) Nelly Gutiérrez hypertension E78.2 Mixed hyperlipidemia J44.9 Chronic obstructive pulmonary disease, unspecified I25.10 Athscl heart disease of [place] coronary artery w/o ang pctrs E55.9 Vitamin D deficiency, unspecified N40.0 Benign prostatic hyperplasia without lower urinry tract symp K21.0 Gastro-esophageal reflux disease with esophagitis J30.2 Other seasonal allergic rhinitis M15.9 Polyosteoarthritis, unspecified M54.5 Low back pain R06.02 Shortness of breath R60.0 Localized edema E83.42 Hypomagnesemia R97.20 Elevated prostate specific antigen [PSA] M54.6 Pain in thoracic spine I87.2 Venous insufficiency (chronic) (peripheral) H10.403 Unspecified chronic conjunctivitis, bilateral H91.8x3 Other specified hearing loss, bilateral L20.9 Atopic dermatitis, unspecified F17.210 Nicotine dependence, cigarettes, uncomplicated J30.9 Allergic rhinitis, unspecified J18.9 Pneumonia, unspecified organism H92.03 Otalgia, bilateral H10.022 Other mucopurulent conjunctivitis, left eye H10.45 Other chronic allergic conjunctivitis Office Visit 07/30/2018 2:00p [facility] Gal Stover I10 Essential ( primary) M., M.D. 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 E55.9 Vitamin D deficiency, unspecified N40.0 Benign prostatic hyperplasia without lower urinry tract symp K21.0 Gastro-esophageal reflux disease with esophagitis J30.2 Other seasonal allergic rhinitis M15.9 Polyosteoarthritis, unspecified M54.5 Low back pain R06.02 Shortness of breath R60.0 Localized edema E83.42 Hypomagnesemia R97.20 Elevated prostate specific antigen [PSA] M54.6 Pain in thoracic spine I87.2 Venous insufficiency (chronic) (peripheral) H10.403 Unspecified chronic conjunctivitis, bilateral H91.8x3 Other specified hearing loss, bilateral L20.9 Atopic dermatitis, unspecified F17.210 Nicotine dependence, cigarettes, uncomplicated J30.9 Allergic rhinitis, unspecified J18.9 Pneumonia, unspecified organism H92.03 Otalgia, bilateral Office Visit 07/04/2018 10:15a [facility] Gal Stover I10 Essential ( primary) Nelly Gutiérrez hypertension E78.2 Mixed hyperlipidemia J44.9 Chronic obstructive pulmonary disease, unspecified I25.10 Athscl heart disease of [place] [facility] E[facility].9 Vitamin D deficiency, unspecified N40.0 Benign prostatic hyperplasia without lower urinry tract symp K21.0 Gastro-esophageal reflux disease with esophagitis J30.2 Other seasonal allergic rhinitis M15.9 Polyosteoarthritis, unspecified M54.5 Low back pain R06.02 Shortness of breath R60.0 Localized edema E83.42 Hypomagnesemia R97.20 Elevated prostate specific antigen [PSA] M54.6 Pain in thoracic spine I87.2 Venous insufficiency (chronic) (peripheral) H10.403 Unspecified chronic conjunctivitis, bilateral H91.8x3 Other specified hearing loss, bilateral L20.9 Atopic dermatitis, unspecified F17.210 Nicotine dependence, cigarettes, uncomplicated J30.9 Allergic rhinitis, unspecified J20.9 Acute bronchitis, unspecified Office Visit 06/10/2018 1:45p [facility] Mauricio Mann I10 Essential (primary) N.P. 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 E55.9 Vitamin D deficiency, unspecified N40.0 Benign prostatic hyperplasia without lower urinry tract symp K21.0 Gastro-esophageal reflux disease with esophagitis J30.2 Other seasonal allergic rhinitis M15.9 Polyosteoarthritis, unspecified M54.5 Low back pain R06.02 Shortness of breath R60.0 Localized edema E83.42 Hypomagnesemia R97.20 Elevated prostate specific antigen [PSA] M54.6 Pain in thoracic spine I87.2 Venous insufficiency (chronic) (peripheral) F17.210 Nicotine dependence, cigarettes, uncomplicated L20.9 Atopic dermatitis, unspecified H91.8x3 Other specified hearing loss, bilateral J20.9 Acute bronchitis, unspecified Office Visit 06/04/2018 1:00p [facility] Gal Stover I10 Essential ( primary) Nelly Gutiérrez 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 E55.9 Vitamin D deficiency, unspecified N40.0 Benign prostatic hyperplasia without lower urinry tract symp K21.0 Gastro-esophageal reflux disease with esophagitis J30.2 Other seasonal allergic rhinitis M15.9 Polyosteoarthritis, unspecified M54.5 Low back pain R06.02 Shortness of breath R60.0 Localized edema E83.42 Hypomagnesemia R97.20 Elevated prostate specific antigen [PSA] M54.6 Pain in thoracic spine I87.2 Venous insufficiency (chronic) (peripheral) H10.403 Unspecified chronic conjunctivitis, bilateral H91.8x3 Other specified hearing loss, bilateral L20.9 Atopic dermatitis, unspecified F17.210 Nicotine dependence, cigarettes, uncomplicated J30.9 Allergic rhinitis, unspecified Office Visit 05/23/2018 10:15a [facility] Trent Stovermad I10 Essential ( primary) Nelly Gutiérrez 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 E55.9 Vitamin D deficiency, unspecified N40.0 Benign prostatic hyperplasia without lower urinry tract symp K21.0 Gastro-esophageal reflux disease with esophagitis J30.2 Other seasonal allergic rhinitis M15.9 Polyosteoarthritis, unspecified M54.5 Low back pain R06.02 Shortness of breath Z68.24 Body mass index (BMI) 24.0-24.9, adult R60.0 Localized edema E83.42 Hypomagnesemia R97.20 Elevated prostate specific antigen [PSA] M54.6 Pain in thoracic spine I87.2 Venous insufficiency (chronic) (peripheral) H10.403 Unspecified chronic conjunctivitis, bilateral H91.8x3 Other specified hearing loss, bilateral L20.9 Atopic dermatitis, unspecified F17.210 Nicotine dependence, cigarettes, uncomplicated J30.9 Allergic rhinitis, unspecified J18.9 Pneumonia, unspecified organism H66.90 Otitis media, unspecified, unspecified ear Z00.01 Encounter for general adult medical exam w abnormal findings Office Visit 05/01/2018 1:30p [facility] Mauricio Mann, I10 Essential (primary) N.P. hypertension L20.9 Atopic dermatitis, unspecified F17.210 Nicotine dependence, cigarettes, uncomplicated H91.8x3 Other specified hearing loss, bilateral J30.9 Allergic rhinitis, unspecified H10.403 Unspecified chronic conjunctivitis, bilateral E78.2 Mixed hyperlipidemia I87.2 Venous insufficiency (chronic) (peripheral) J18.9 Pneumonia, unspecified organism R06.02 Shortness of breath J44.1 Chronic obstructive pulmonary disease w (acute) exacerbation H66.90 Otitis media, unspecified, unspecified ear Office Visit 03/28/2018 2:15p [facility] Gal Stover J44.9 Chronic obstructive M., M.D. pulmonary disease, unspecified I10 Essential (primary) hypertension E78.2 Mixed hyperlipidemia I25.10 Athscl heart disease of [place] coronary artery w/o ang pctrs E55.9 Vitamin D deficiency, unspecified N40.0 Benign prostatic hyperplasia without lower urinry tract symp K21.0 Gastro-esophageal reflux disease with esophagitis J30.2 Other seasonal allergic rhinitis M15.9 Polyosteoarthritis, unspecified M54.5 Low back pain R60.0 Localized edema I87.2 Venous insufficiency (chronic) (peripheral) H10.403 Unspecified chronic conjunctivitis, bilateral H91.8x3 Other specified hearing loss, bilateral E83.42 Hypomagnesemia R97.20 Elevated prostate specific antigen [PSA] M54.6 Pain in thoracic spine L20.9 Atopic dermatitis, unspecified F17.210 Nicotine dependence, cigarettes, uncomplicated J30.9 Allergic rhinitis, unspecified Office Visit 01/21/2018 11:30a [facility] J44.9 Chronic obstructive M., M.D. 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 E55.9 Vitamin D deficiency, unspecified N40.0 Benign prostatic hyperplasia without lower urinry tract symp K21.0 Gastro-esophageal reflux disease with esophagitis J30.2 Other seasonal allergic rhinitis M15.9 Polyosteoarthritis, unspecified M54.5 Low back pain R60.0 Localized edema I87.2 Venous insufficiency (chronic) (peripheral) H10.403 Unspecified chronic conjunctivitis, bilateral H91.8x3 Other specified hearing loss, bilateral E83.42 Hypomagnesemia R97.20 Elevated prostate specific antigen [PSA] M54.6 Pain in thoracic spine L20.9 Atopic dermatitis, unspecified F17.210 Nicotine dependence, cigarettes, uncomplicated J30.9 Allergic rhinitis, unspecified J20.9 Acute bronchitis, unspecified J01.40 Acute pansinusitis, unspecified H66.90 Otitis media, unspecified, unspecified ear Office Visit 12/20/2017 1:45p [facility] Gal Stover J44.9 Chronic obstructive M., MSurinder. 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 E55.9 Vitamin D deficiency, unspecified H66.90 Otitis media, unspecified, unspecified ear N40.0 Benign prostatic hyperplasia without lower urinry tract symp K21.0 Gastro-esophageal reflux disease with esophagitis J30.2 Other seasonal allergic rhinitis M15.9 Polyosteoarthritis, unspecified M54.5 Low back pain R60.0 Localized edema I87.2 Venous insufficiency (chronic) (peripheral) H10.403 Unspecified chronic conjunctivitis, bilateral H91.8x3 Other specified hearing loss, bilateral E83.42 Hypomagnesemia R97.20 Elevated prostate specific antigen [PSA] M54.6 Pain in thoracic spine L20.9 Atopic dermatitis, unspecified F17.210 Nicotine dependence, cigarettes, uncomplicated J30.9 Allergic rhinitis, unspecified R21 Rash and other nonspecific skin eruption L50.9 Urticaria, unspecified R13.14 Dysphagia, pharyngoesophageal phase L03.211 Cellulitis of face J20.9 Acute bronchitis, unspecified J01.40 Acute pansinusitis, unspecified J18.9 Pneumonia, unspecified organism Office Visit 12/13/2017 3:45p [facility] Gal Stover J44.9 Chronic obstructive M., MLuisD. 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 E55.9 Vitamin D deficiency, unspecified N40.0 Benign prostatic hyperplasia without lower urinry tract symp K21.0 Gastro-esophageal reflux disease with esophagitis J30.2 Other seasonal allergic rhinitis M15.9 Polyosteoarthritis, unspecified M54.5 Low back pain R60.0 Localized edema I87.2 Venous insufficiency (chronic) (peripheral) H10.403 Unspecified chronic conjunctivitis, bilateral H91.8x3 Other specified hearing loss, bilateral E83.42 Hypomagnesemia R97.20 Elevated prostate specific antigen [PSA] M54.6 Pain in thoracic spine L20.9 Atopic dermatitis, unspecified F17.210 Nicotine dependence, cigarettes, uncomplicated J30.9 Allergic rhinitis, unspecified R21 Rash and other nonspecific skin eruption L50.9 Urticaria, unspecified R13.14 Dysphagia, pharyngoesophageal phase L03.211 Cellulitis of face Office Visit 12/05/2017 11:45a [facility] CkGal hercules J44.9 Chronic obstructive M., M.D. 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 E55.9 Vitamin D deficiency, unspecified N40.0 Benign prostatic hyperplasia without lower urinry tract symp K21.0 Gastro-esophageal reflux disease with esophagitis J30.2 Other seasonal allergic rhinitis M15.9 Polyosteoarthritis, unspecified M54.5 Low back pain R60.0 Localized edema I87.2 Venous insufficiency (chronic) (peripheral) H10.403 Unspecified chronic conjunctivitis, bilateral H91.8x3 Other specified hearing loss, bilateral E83.42 Hypomagnesemia R97.20 Elevated prostate specific antigen [PSA] M54.6 Pain in thoracic spine F17.210 Nicotine dependence, cigarettes, uncomplicated L03.211 Cellulitis of face R21 Rash and other nonspecific skin eruption L50.9 Urticaria, unspecified L20.9 Atopic dermatitis, unspecified J30.9 Allergic rhinitis, unspecified [facility] obstructive M., M.D. pulmonary disease, unspecified I10 Essential (primary) hypertension E78.2 Mixed hyperlipidemia I25.10 Athscl heart disease of [place] [facility] E[facility].9 Vitamin D deficiency, unspecified N40.0 Benign prostatic hyperplasia without lower urinry tract symp K21.0 Gastro-esophageal reflux disease with esophagitis J30.2 Other seasonal allergic rhinitis M15.9 Polyosteoarthritis, unspecified M54.5 Low back pain R60.0 Localized edema I87.2 Venous insufficiency (chronic) (peripheral) H10.403 Unspecified chronic conjunctivitis, bilateral H91.8x3 Other specified hearing loss, bilateral E83.42 Hypomagnesemia R97.20 Elevated prostate specific antigen [PSA] M54.6 Pain in thoracic spine F17.210 Nicotine dependence, cigarettes, uncomplicated Office Visit 09/19/2017 10:15a [facility] Gal Stover J44.9 Chronic obstructive MLuis MSurinder. 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 E55.9 Vitamin D deficiency, unspecified N40.0 Benign prostatic hyperplasia without lower urinry tract symp K21.0 Gastro-esophageal reflux disease with esophagitis J30.2 Other seasonal allergic rhinitis M15.9 Polyosteoarthritis, unspecified M54.5 Low back pain R60.0 Localized edema I87.2 Venous insufficiency (chronic) (peripheral) H10.403 Unspecified chronic conjunctivitis, bilateral H91.8x3 Other specified hearing loss, bilateral E83.42 Hypomagnesemia R97.20 Elevated prostate specific antigen [PSA] R42 Dizziness and giddiness M54.6 Pain in thoracic spine F17.210 Nicotine dependence, cigarettes, uncomplicated Office Visit 06/25/2017 3:15p [facility] Kayden Adamson [employer] R05 Cough H10.89 Other conjunctivitis J20.9 Acute bronchitis, unspecified Office Visit 04/06/2017 11:15a [facility] Gal Stover J01.80 Other acute Marla, Nelly sinusitis J20.9 Acute bronchitis, unspecified R06.02 Shortness of breath R06.2 Wheezing R05 Cough R09.81 Nasal congestion J44.9 Chronic obstructive 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 E55.9 Vitamin D deficiency, unspecified N40.0 Benign prostatic hyperplasia without lower urinry tract symp K21.0 Gastro-esophageal reflux disease with esophagitis J30.2 Other seasonal allergic rhinitis M15.9 Polyosteoarthritis, unspecified M54.5 Low back pain R60.0 Localized edema I87.2 Venous insufficiency (chronic) (peripheral) H10.403 Unspecified chronic conjunctivitis, bilateral H91.8x3 Other specified hearing loss, bilateral E83.42 Hypomagnesemia R97.20 Elevated prostate specific antigen [PSA] R42 Dizziness and giddiness M54.6 Pain in thoracic spine F17.210 Nicotine dependence, cigarettes, uncomplicated B37.0 Candidal stomatitis Office Visit 03/26/2017 10:45a [facility] Kayden Adamson F17.210 Nicotine dependence, [employer] cigarettes, uncomplicated J01.80 Other acute sinusitis R05 Cough J20.9 Acute bronchitis, unspecified R06.02 Shortness of breath R06.2 Wheezing Office Visit 03/23/2017 10:15a [facility] Gal Stover44.Jayla Chronic obstructive M., M.D. 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 R06.02 Shortness of breath R09.81 Nasal congestion R05 Cough E55.9 Vitamin D deficiency, unspecified N40.0 Benign prostatic hyperplasia without lower urinry tract symp K21.0 Gastro-esophageal reflux disease with esophagitis J30.2 Other seasonal allergic rhinitis M15.9 Polyosteoarthritis, unspecified M54.5 Low back pain F17.210 Nicotine dependence, cigarettes, uncomplicated R60.0 Localized edema I87.2 Venous insufficiency (chronic) (peripheral) H10.403 Unspecified chronic conjunctivitis, bilateral H91.8x3 Other specified hearing loss, bilateral E83.42 Hypomagnesemia R97.20 Elevated prostate specific antigen [PSA] R42 Dizziness and giddiness M54.6 Pain in thoracic spine Office Visit 11/16/2016 1:45p [facility] Gal Stover J44.9 Chronic obstructive M., MLuisD. pulmonary disease, unspecified I10 Essential (primary) hypertension E78.2 Mixed hyperlipidemia I25.10 Athscl heart disease of [place] coronary artery w/o ang pctrs R06.02 Shortness of breath R09.81 Nasal congestion R05 Cough E55.9 Vitamin D deficiency, unspecified N40.0 Benign prostatic hyperplasia without lower urinry tract symp K21.0 Gastro-esophageal reflux disease with esophagitis J30.2 Other seasonal allergic rhinitis M15.9 Polyosteoarthritis, unspecified M54.5 Low back pain F17.210 Nicotine dependence, cigarettes, uncomplicated R60.0 Localized edema I87.2 Venous insufficiency (chronic) (peripheral) H10.403 Unspecified chronic conjunctivitis, bilateral H91.8x3 Other specified hearing loss, bilateral E83.42 Hypomagnesemia R97.20 Elevated prostate specific antigen [PSA] R42 Dizziness and giddiness Office Visit 09/22/2016 2:15p [facility] Ck, Ahmad R06.02 Shortness of M., M.D. 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 E55.9 Vitamin D deficiency, unspecified N40.0 Benign prostatic hyperplasia without lower urinry tract symp K21.0 Gastro-esophageal reflux disease with esophagitis J30.2 Other seasonal allergic rhinitis M15.9 Polyosteoarthritis, unspecified M54.5 Low back pain F17.210 Nicotine dependence, cigarettes, uncomplicated R60.0 Localized edema I87.2 Venous insufficiency (chronic) (peripheral) H10.403 Unspecified chronic conjunctivitis, bilateral H91.8x3 Other specified hearing loss, bilateral E83.42 Hypomagnesemia R97.20 Elevated prostate specific antigen [PSA] Office Visit 07/11/2016 2:00p [facility] Ck, Ahmad R06.02 Shortness of M., M.D. 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 E55.9 Vitamin D deficiency, unspecified N40.0 Benign prostatic hyperplasia without lower urinry tract symp K21.0 Gastro-esophageal reflux disease with esophagitis J30.2 Other seasonal allergic rhinitis M15.9 Polyosteoarthritis, unspecified M54.5 Low back pain F17.210 Nicotine dependence, cigarettes, uncomplicated R60.0 Localized edema I87.2 Venous insufficiency (chronic) (peripheral) H10.403 Unspecified chronic conjunctivitis, bilateral H91.8x3 Other specified hearing loss, bilateral E83.42 Hypomagnesemia S13.4xxA Sprain of ligaments of cervical spine, initial encounter Z12.11 Encounter for screening for malignant neoplasm of colon R97.20 Elevated prostate specific antigen [PSA] Z23 Encounter for immunization Office Visit 04/27/2016 8:45a [facility] Gal Stover R06.02 Shortness of M., M.D. breath R09.81 Nasal congestion R05 Cough J44.9 Chronic obstructive pulmonary disease, unspecified I10 Essential (primary) hypertension E78.2 Mixed hyperlipidemia I25.10 Athscl heart disease of [place] coronary [facility] E55.9 Vitamin D deficiency, unspecified N40.0 Enlarged prostate without lower urinary tract symptoms K21.0 Gastro-esophageal reflux disease with esophagitis J30.2 Other seasonal allergic rhinitis M15.9 Polyosteoarthritis, unspecified M54.5 Low back pain F17.210 Nicotine dependence, cigarettes, uncomplicated R60.0 Localized edema I87.2 Venous insufficiency (chronic) (peripheral) H10.403 Unspecified chronic conjunctivitis, bilateral H91.8x3 Other specified hearing loss, bilateral E83.42 Hypomagnesemia Z00.01 Encounter for general adult medical exam w abnormal findings Office Visit 03/30/2016 11:15a [facility] Gal Stover R06.02 Shortness of M., M.D. breath R09.81 Nasal congestion R05 Cough J44.9 Chronic obstructive pulmonary disease, unspecified I10 Essential (primary) hypertension E78.2 Mixed hyperlipidemia I25.10 Athscl heart disease of [place] coronary [facility] E55.9 Vitamin D deficiency, unspecified N40.0 Enlarged prostate without lower urinary tract symptoms K21.0 Gastro-esophageal reflux disease with esophagitis J30.2 Other seasonal allergic rhinitis M15.9 Polyosteoarthritis, unspecified M54.5 Low back pain F17.210 Nicotine dependence, cigarettes, uncomplicated R60.0 Localized edema I87.2 Venous insufficiency (chronic) (peripheral) H10.403 Unspecified chronic conjunctivitis, bilateral H91.8x3 Other specified hearing loss, bilateral E83.42 Hypomagnesemia Office Visit 02/03/2016 2:45p [facility] Acute bronchitis, MLuis MSurinder. 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 E55.9 Vitamin D deficiency, unspecified N40.0 Enlarged prostate without lower urinary tract symptoms K21.0 Gastro-esophageal reflux disease with esophagitis J30.2 Other seasonal allergic rhinitis M15.9 Polyosteoarthritis, unspecified M54.5 Low back pain F17.210 Nicotine dependence, cigarettes, uncomplicated R60.0 Localized edema I87.2 Venous insufficiency (chronic) (peripheral) H10.403 Unspecified chronic conjunctivitis, bilateral H91.8x3 Other specified hearing loss, bilateral E83.42 Hypomagnesemia Office Visit 12/10/2015 2:15p [facility] J20.9 Acute bronchitis, Marla MSurinder. unspecified J01.40 Acute pansinusitis, unspecified H66.93 Otitis media, unspecified, bilateral R06.02 Shortness of breath R09.81 Nasal congestion R05 Cough J44.9 Chronic obstructive pulmonary disease, unspecified I10 Essential (primary) hypertension E78.2 Mixed hyperlipidemia I25.10 Athscl heart disease of [place] coronary artery w/o ang pctrs E55.9 Vitamin D deficiency, unspecified N40.0 Enlarged prostate without lower urinary tract symptoms K21.0 Gastro-esophageal reflux disease with esophagitis J30.2 Other seasonal allergic rhinitis M15.9 Polyosteoarthritis, unspecified M54.5 Low back pain F17.210 Nicotine dependence, cigarettes, uncomplicated R60.0 Localized edema I87.2 Venous insufficiency (chronic) (peripheral) H10.403 Unspecified chronic conjunctivitis, bilateral H91.8x3 Other specified hearing loss, bilateral E83.42 Hypomagnesemia Office Visit 09/24/2015 9:30a [facility] Gal Stover R06.02 Shortness of M., M.D. 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 E55.9 Vitamin D deficiency, unspecified N40.0 Enlarged prostate without lower urinary tract symptoms K21.0 Gastro-esophageal reflux disease with esophagitis J30.2 Other seasonal allergic rhinitis M15.9 Polyosteoarthritis, unspecified M54.5 Low back pain F17.210 Nicotine dependence, cigarettes, uncomplicated R60.0 Localized edema I87.2 Venous insufficiency (chronic) (peripheral) H10.403 Unspecified chronic conjunctivitis, bilateral H91.8x3 Other specified hearing loss, bilateral Office Visit 08/19/2015 2:00p [facility] Gal Stover Z23 Encounter for Nelly Gutiérrez immunization Z23 Encounter for immunization H10.023 Other mucopurulent conjunctivitis, bilateral J18.9 Pneumonia, unspecified organism J20.9 Acute bronchitis, unspecified J01.41 Acute recurrent pansinusitis R06.02 Shortness of 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 E55.9 Vitamin D deficiency, unspecified N40.0 Enlarged prostate without lower urinary tract symptoms K21.0 Gastro-esophageal reflux disease with esophagitis J30.2 Other seasonal allergic rhinitis M15.9 Polyosteoarthritis, unspecified M54.5 Low back pain F17.210 Nicotine dependence, cigarettes, uncomplicated R60.0 Localized edema I87.2 Venous insufficiency (chronic) (peripheral) H10.403 Unspecified chronic conjunctivitis, bilateral H91.8x3 Other specified hearing loss, bilateral Office Visit 07/26/2015 9:45a [facility], [place] H10.023 Other mucopurulent MLuis MLuisD. conjunctivitis, bilateral J18.9 Pneumonia, unspecified organism J20.9 Acute bronchitis, unspecified J01.41 Acute recurrent pansinusitis R06.02 Shortness of breath R09.81 Nasal congestion R05 Cough J44.9 Chronic obstructive pulmonary disease, unspecified I10 Essential (primary) hypertension E78.2 Mixed hyperlipidemia I25.10 Athscl heart disease of [place] coronary [facility] E55.9 Vitamin D deficiency, unspecified N40.0 Enlarged prostate without lower urinary tract symptoms K21.0 Gastro-esophageal reflux disease with esophagitis J30.2 Other seasonal allergic rhinitis M15.9 Polyosteoarthritis, unspecified M54.5 Low back pain F17.210 Nicotine dependence, cigarettes, uncomplicated R60.0 Localized edema I87.2 Venous insufficiency (chronic) (peripheral) H10.403 Unspecified chronic conjunctivitis, bilateral H91.8x3 Other specified hearing loss, bilateral Office Visit 07/19/2015 3:00p [facility] J18.9 Pneumonia, M., M.D. unspecified organism J20.9 Acute bronchitis, unspecified J01.41 Acute recurrent pansinusitis R06.02 Shortness of breath R09.81 Nasal congestion R05 Cough J44.9 Chronic obstructive pulmonary disease, unspecified I10 Essential (primary) hypertension E78.2 Mixed hyperlipidemia I25.10 Athscl heart disease of [place] [facility] E55.9 Vitamin D deficiency, unspecified N40.0 Enlarged prostate without lower urinary tract symptoms K21.0 Gastro-esophageal reflux disease with esophagitis J30.2 Other seasonal allergic rhinitis M15.9 Polyosteoarthritis, unspecified M54.5 Low back pain F17.210 Nicotine dependence, cigarettes, uncomplicated R60.0 Localized edema I87.2 Venous insufficiency (chronic) (peripheral) H10.403 Unspecified chronic conjunctivitis, bilateral H91.8x3 Other specified hearing loss, bilateral Office Visit 06/22/2015 2:00p [place] [facility], [place] J18.9 Pneumonia, M., M.D. unspecified organism J20.9 Acute bronchitis, unspecified J01.41 Acute recurrent pansinusitis R06.02 Shortness of breath R09.81 Nasal congestion R05 Cough J44.9 Chronic obstructive pulmonary disease, unspecified I10 Essential (primary) hypertension E78.2 Mixed hyperlipidemia I25.10 Athscl heart disease of [place] coronary artery w/o ang pctrs E55.9 Vitamin D deficiency, unspecified N40.0 Enlarged prostate without lower urinary tract symptoms K21.0 Gastro-esophageal reflux disease with esophagitis J30.2 Other seasonal allergic rhinitis M15.9 Polyosteoarthritis, unspecified M54.5 Low back pain F17.210 Nicotine dependence, cigarettes, uncomplicated R60.0 Localized edema I87.2 Venous insufficiency (chronic) (peripheral) H10.403 Unspecified chronic conjunctivitis, bilateral H91.8x3 Other specified hearing loss, bilateral Office Visit 05/25/2015 11:00a [place] [facility] Gal Stover, 496 COPD Airway M.D. Obstruction Chronic Not Class Elsewhere 401.1 Hypertension Benign 272.2 Hyperlipidemia Mixed 414.01 Coronary Atherosclerosis [place] 268.9 Vitamin D Deficiency Unspec 600.00 Hypertrophy Prostate W/O Urinary Obstruction & Other Luts 530.11 Esophagitis Reflux 477.8 Rhinitis Allergic Due To Other Allergen 715.90 Osteoarthrosis Unspec Genlzd Or Localized Site Unspec 724.2 Lumbago 305.1 Tobacco Use Disorder 782.3 Edema 459.81 Venous Insufficiency (Peripheral) Unspec 372.10 Conjunctivitis Chronic Unspec 389.8 Hearing Loss Other Spec Forms Office Visit 05/10/2015 9:00a [place] [facility] Gal Stover, 496 COPD Airway M.D. Obstruction Chronic Not Class Elsewhere 401.1 Hypertension Benign 272.2 Hyperlipidemia Mixed 414.01 Coronary Atherosclerosis [place] 268.9 Vitamin D Deficiency Unspec 600.00 Hypertrophy Prostate W/O Urinary Obstruction & Other Luts 530.11 Esophagitis Reflux 477.8 Rhinitis Allergic Due To Other Allergen 715.90 Osteoarthrosis Unspec Genlzd Or Localized Site Unspec 724.2 Lumbago 305.1 Tobacco Use Disorder 782.3 Edema 459.81 Venous Insufficiency (Peripheral) Unspec 372.10 Conjunctivitis Chronic Unspec 389.8 Hearing Loss Other Spec Forms V70.0 Examination General Medical Routine AT Health Care Facility Office Visit 03/29/2015 11:30a [place] [facility] Gal StoverLuis, 466.0 Bronchitis Acute M.D. 461.8 Sinusitis Acute Other 786.2 Cough 786.05 Shortness Of Breath 478.19 Other Disease Of Nasal Cavity And Sinuses 388.70 Otalgia & Earache Unspec 496 COPD Airway Obstruction Chronic Not Class Elsewhere 401.1 Hypertension Benign 272.2 Hyperlipidemia Mixed 414.01 Coronary Atherosclerosis [place] 268.9 Vitamin D Deficiency Unspec 600.00 Hypertrophy Prostate W/O Urinary Obstruction & Other Luts 530.11 Esophagitis Reflux 477.8 Rhinitis Allergic Due To Other Allergen 715.90 Osteoarthrosis Unspec Genlzd Or Localized Site Unspec 724.2 Lumbago 305.1 Tobacco Use Disorder 782.3 Edema 459.81 Venous Insufficiency (Peripheral) Unspec 372.10 Conjunctivitis Chronic Unspec Office Visit 12/29/2014 2:15p [place] [facility] Gal StoverLuis, 382.9 Otitis Media M.D. Unspec 462 Pharyngitis Acute 388.70 Otalgia & Earache Unspec 786.2 Cough 786.05 Shortness Of Breath 478.19 Other Disease Of Nasal Cavity And Sinuses 496 COPD Airway Obstruction Chronic Not Class Elsewhere 401.1 Hypertension Benign 272.2 Hyperlipidemia Mixed 414.01 Coronary Atherosclerosis [place] 268.9 Vitamin D Deficiency Unspec 600.00 Hypertrophy Prostate W/O Urinary Obstruction & Other Luts 530.11 Esophagitis Reflux 477.8 Rhinitis Allergic Due To Other Allergen 715.90 Osteoarthrosis Unspec Genlzd Or Localized Site Unspec 724.2 Lumbago 305.1 Tobacco Use Disorder 782.3 Edema 459.81 Venous Insufficiency (Peripheral) Unspec Office Visit 10/07/2014 9:45a [place] [facility] Kayden Adamson 401.1 Hypertension Benign ADMINISTRATIVE JOB TITLES 272.2 Hyperlipidemia Mixed 414.01 Coronary Atherosclerosis [place] 268.9 Vitamin D Deficiency Unspec 600.00 Hypertrophy Prostate W/O Urinary Obstruction & Other Luts 372.39 Conjunctivitis Other Office Visit 10/01/2014 10:15a [place] [facility] Elmo Stoverlorena 372.39 Conjunctivitis Other M., M.D. 478.19 Other Disease Of Nasal Cavity And Sinuses 401.1 Hypertension Benign 272.2 Hyperlipidemia Mixed 530.11 Esophagitis Reflux 477.8 Rhinitis Allergic Due To Other Allergen 496 COPD Airway Obstruction Chronic Not Class Elsewhere 414.01 Coronary Atherosclerosis [place] 600.00 Hypertrophy Prostate W/O Urinary Obstruction & Other Luts 715.90 Osteoarthrosis Unspec Genlzd Or Localized Site Unspec 724.2 Lumbago 305.1 Tobacco Use Disorder 782.3 Edema 459.81 Venous Insufficiency (Peripheral) Unspec Office Visit 09/23/2014 11:15a [place] [facility] Gal Stover 401.1 Hypertension Ruddy Gutiérrez M.D. 272.2 Hyperlipidemia Mixed 530.11 Esophagitis Reflux 477.8 Rhinitis Allergic Due To Other Allergen 496 COPD Airway Obstruction Chronic Not Class Elsewhere 414.01 Coronary Atherosclerosis [place] 600.00 Hypertrophy Prostate W/O Urinary Obstruction & Other Luts 715.90 Osteoarthrosis Unspec Genlzd Or Localized Site Unspec 724.2 Lumbago 305.1 Tobacco Use Disorder 782.3 Edema 459.81 Venous Insufficiency (Peripheral) Unspec Office Visit 05/07/2014 10:30a [place] [facility] [facility] Gal Stover 401.1 Hypertension Ruddy Gutiérrez M.D. 272.2 Hyperlipidemia Mixed 530.11 Esophagitis Reflux 477.8 Rhinitis Allergic Due To Other Allergen 496 COPD Airway Obstruction Chronic Not Class Elsewhere 414.01 Coronary Atherosclerosis [place] 600.00 Hypertrophy Prostate W/O Urinary Obstruction & Other Luts 715.90 Osteoarthrosis Unspec Genlzd Or Localized Site Unspec 724.2 Lumbago 305.1 Tobacco Use Disorder 782.3 Edema 459.81 Venous Insufficiency (Peripheral) Unspec Office Visit 04/14/2014 10:00a [place] [facility] Lorena Bedoya, 692.79 Dermatitis Due To ADMINISTRATIVE JOB TITLES Solar Radiation Other 709.8 Skin Disorders Other Spec 401.1 Hypertension Benign 272.2 Hyperlipidemia Mixed 530.11 Esophagitis Reflux 477.8 Rhinitis Allergic Due To Other Allergen 496 COPD Airway Obstruction Chronic Not Class Elsewhere 414.01 Coronary Atherosclerosis [place] 600.00 Hypertrophy Prostate W/O Urinary Obstruction & Other Luts 715.90 Osteoarthrosis Unspec Genlzd Or Localized Site Unspec 724.2 Lumbago 305.1 Tobacco Use Disorder 782.3 Edema 459.81 Venous Insufficiency (Peripheral) Unspec Office Visit 04/03/2014 11:00a [place] [facility] [facility] Gal Stover 401.1 Hypertension Ruddy Gutiérrez M.D. 496 COPD Airway Obstruction Chronic Not Class Elsewhere 272.2 Hyperlipidemia Mixed 414.01 Coronary Atherosclerosis [place] 530.11 Esophagitis Reflux 600.00 Hypertrophy Prostate W/O Urinary Obstruction & Other Luts 715.90 Osteoarthrosis Unspec Genlzd Or Localized Site Unspec 477.8 Rhinitis Allergic Due To Other Allergen 724.2 Lumbago 305.1 Tobacco Use Disorder 782.3 Edema 459.81 Venous Insufficiency (Peripheral) Unspec Office Visit 03/31/2014 9:45a [place] [facility] [facility] Gal Stover V70.0 Examination General Nury Gutiérrez. Medical Routine AT Health Care Facility 401.1 Hypertension Benign 496 COPD Airway Obstruction Chronic Not Class Elsewhere 272.2 Hyperlipidemia Mixed 414.01 Coronary Atherosclerosis [place] V85.21 Body Mass Index 25.0-25.9 Adult 530.11 Esophagitis Reflux 600.00 Hypertrophy Prostate W/O Urinary Obstruction & Other Luts V76.41 Screening Malignant Neoplasm Rectum 715.90 Osteoarthrosis Unspec Genlzd Or Localized Site Unspec V76.44 Screening For Malig Luis Prostate 477.8 Rhinitis Allergic Due To Other Allergen 724.2 Lumbago 305.1 Tobacco Use Disorder 782.3 Edema 459.81 Venous Insufficiency (Peripheral) Unspec V70.0 Examination General Medical Routine AT Health Care Facility Office Visit 11/18/2013 2:30p [place] [facility] Miller 491.21 Bronchitis Ksenia, ADMINISTRATIVE JOB TITLES Obstructive Chronic W/Acute Exacerbation 786.2 Cough 786.05 Shortness Of Breath 478.19 Other Disease Of Nasal Cavity And Sinuses 473.9 Sinusitis Chronic Unspec 388.70 Otalgia & Earache Unspec 462 Pharyngitis Acute Office Visit 09/24/2013 2:15p [place] [facility] [facility] Miller 491.21 Bronchitis Ksenia, ADMINISTRATIVE JOB TITLES Obstructive Chronic W/Acute Exacerbation 786.2 Cough 786.05 Shortness Of Breath 478.19 Other Disease Of Nasal Cavity And Sinuses 305.1 Tobacco Use Disorder 715.90 Osteoarthrosis Unspec Genlzd Or Localized Site Unspec 724.2 Lumbago 477.8 Rhinitis Allergic Due To Other Allergen 401.1 Hypertension Benign Office Visit 08/26/2013 11:30a [place] [facility] Gal Stover 491.21 Bronchitis Nelly Gutiérrez Obstructive Chronic W/Acute Exacerbation 466.0 Bronchitis Acute 786.2 Cough 786.05 Shortness Of Breath 478.19 Other Disease Of Nasal Cavity And Sinuses 305.1 Tobacco Use Disorder 382.9 Otitis Media Unspec 715.90 Osteoarthrosis Unspec Genlzd Or Localized Site Unspec 724.2 Lumbago 477.8 Rhinitis Allergic Due To Other Allergen 401.1 Hypertension Benign Office Visit 07/31/2013 10:45a [place] [facility] Gal Stover 491.21 Bronchitis Nelly Gutiérrez Obstructive Chronic W/Acute Exacerbation 466.0 Bronchitis Acute 786.2 Cough 786.05 Shortness Of Breath 478.19 Other Disease Of Nasal Cavity And Sinuses 305.1 Tobacco Use Disorder 382.9 Otitis Media Unspec 715.90 Osteoarthrosis Unspec Genlzd Or Localized Site Unspec 724.2 Lumbago 477.8 Rhinitis Allergic Due To Other Allergen V04.81 Need For Prophylactic Vaccination & Inoculation/Influenza 401.1 Hypertension Benign 272.2 Hyperlipidemia Mixed 530.11 Esophagitis Reflux 600.00 Hypertrophy Prostate W/O Urinary Obstruction & Other Luts Office Visit 04/07/2013 8:45a [place] [facility] Ksenia Bhatt FNP 724.2 Lumbago 477.8 Rhinitis Allergic Due To Other Allergen 715.90 Osteoarthrosis Unspec Genlzd Or Localized Site Unspec 401.1 Hypertension Benign 305.1 Tobacco Use Disorder 786.2 Cough 786.05 Shortness Of Breath 272.2 Hyperlipidemia Mixed 530.11 Esophagitis Reflux 600.00 Hypertrophy Prostate W/O Urinary Obstruction & Other Luts 496 COPD Airway Obstruction Chronic Not Class Elsewhere Office Visit 10/17/2012 11:00a [place] [facility] [facility] Gal Stover M.D. 724.2 Lumbago 477.8 Rhinitis Allergic Due To Other Allergen 715.90 Osteoarthrosis Unspec Genlzd Or Localized Site Unspec 401.1 Hypertension Benign 305.1 Tobacco Use Disorder 786.2 Cough 786.05 Shortness Of Breath 272.2 Hyperlipidemia Mixed 530.11 Esophagitis Reflux 600.00 Hypertrophy Prostate W/O Urinary Obstruction & Other Luts 496 COPD Airway Obstruction Chronic Not Class Elsewhere Office Visit 10/03/2012 9:00a [place] [facility] [facility] Gal Stover, 466.0 Bronchitis Acute M.DLuis 786.05 Shortness Of Breath 786.2 Cough 461.8 Sinusitis Acute Other 382.9 Otitis Media Unspec 478.19 Other Disease Of Nasal Cavity And Sinuses 305.1 Tobacco Use Disorder 724.2 Lumbago 477.8 Rhinitis Allergic Due To Other Allergen 715.90 Osteoarthrosis Unspec Genlzd Or Localized Site Unspec 401.1 Hypertension Benign 272.2 Hyperlipidemia Mixed 530.11 Esophagitis Reflux 600.00 Hypertrophy Prostate W/O Urinary Obstruction & Other Luts 366.53 Cataract After Obscuring Vision 491.21 Bronchitis Obstructive Chronic W/Acute Exacerbation Office Visit 07/19/2012 10:15a [place] [facility] [facility] Gal Stover, 466.0 Bronchitis Acute M.DLuis 491.21 Bronchitis Obstructive Chronic W/Acute Exacerbation 786.05 Shortness Of Breath 786.2 Cough 461.8 Sinusitis Acute Other 382.9 Otitis Media Unspec 478.19 Other Disease Of Nasal Cavity And Sinuses 305.1 Tobacco Use Disorder 724.2 Lumbago 477.8 Rhinitis Allergic Due To Other Allergen 715.90 Osteoarthrosis Unspec Genlzd Or Localized Site Unspec Office Visit 07/04/2012 10:45a [place] [facility] Gal Stover 401.1 Hypertension Ruddy Gutiérrez M.D. 272.2 Hyperlipidemia Mixed 530.11 Esophagitis Reflux 477.8 Rhinitis Allergic Due To Other Allergen 305.1 Tobacco Use Disorder 724.2 Lumbago 715.90 Osteoarthrosis Unspec Genlzd Or Localized Site Unspec V04.81 Need For Prophylactic Vaccination & Inoculation/Influenza 600.00 Hypertrophy Prostate W/O Urinary Obstruction & Other Luts 281.1 Vitamin B12 Deficiency Anemia Other 536.8 Stomach Dyspepsia & Other Spec Disorders Of Function Office Visit 04/17/2012 [place] Chelsie Tai ADMINISTRATIVE JOB TITLES 401.1 Hypertension 9:00a Office Benign 272.2 Hyperlipidemia Mixed 530.11 Esophagitis Reflux 477.8 Rhinitis Allergic Due To Other Allergen 305.1 Tobacco Use Disorder 724.2 Lumbago 715.90 Osteoarthrosis Unspec Genlzd Or Localized Site Unspec 600.00 Hypertrophy Prostate W/O Urinary Obstruction & Other Luts 461.8 Sinusitis Acute Other Office Visit 04/04/2012 2:00p [place] [facility] Gal Stover 401.1 Hypertension Ruddy Gutiérrez M.D. 272.2 Hyperlipidemia Mixed 530.11 Esophagitis Reflux 477.8 Rhinitis Allergic Due To Other Allergen 305.1 Tobacco Use Disorder 724.2 Lumbago 715.90 Osteoarthrosis Unspec Genlzd Or Localized Site Unspec 600.00 Hypertrophy Prostate W/O Urinary Obstruction & Other Luts Office Visit 01/16/2012 10:15a [place] [facility] [facility] Gal Stover 366.53 Cataract After Nelly Gutiérrez Obscuring Vision 369.9 Visual Loss Unspec 401.1 Hypertension Benign 272.2 Hyperlipidemia Mixed 724.2 Lumbago 530.11 Esophagitis Reflux 305.1 Tobacco Use Disorder 372.30 Conjunctivitis Unspec V72.84 Examination Preoperative Unspec Office Visit 08/17/2011 10:00a [place] [facility] [facility] Gal Stover 401.1 Hypertension Ruddy Gutiérrez M.D. 272.2 Hyperlipidemia Mixed 281.1 Vitamin B12 Deficiency Anemia Other 600.00 Hypertrophy Prostate W/O Urinary Obstruction & Other Luts Office Visit 08/03/2011 9:30a [place] [facility] [facility] Gal Stover 401.1 Hypertension Ruddy Gutiérrez M.D. 272.2 Hyperlipidemia Mixed 724.2 Lumbago 600.00 Hypertrophy Prostate W/O Urinary Obstruction & Other Luts Office Visit 07/28/2011 10:30a [place] [facility] Gal Stover 401.1 Hypertension Ruddy Gutiérrez M.D. 536.8 Stomach Dyspepsia & Other Spec Disorders Of Function 276.9 Electrolyte & Fluid Disorder Not Elsewhere Class 724.2 Lumbago Office Visit 03/24/2011 9:30a [place] [facility] [facility] Gal Stover 401.1 Hypertension Ruddy Gutiérrez M.D. 530.11 Esophagitis Reflux 272.2 Hyperlipidemia Mixed 724.2 Lumbago Office Visit 03/29/2010 8:30a [place] [facility] [facility] Kayden Adamson 401.1 Hypertension Benign ADMINISTRATIVE JOB TITLES 530.11 Esophagitis Reflux 272.2 Hyperlipidemia Mixed 846.0 Sprains & Strains Sacroiliac Region Lumbosacral (Joint)(Liga Office Visit 09/16/2009 10:30a [place] [facility] Gal Stover, 488.1 Influenza H1N1 Nelly V04.81 Need For Prophylactic Vaccination & Inoculation/Influenza Office Visit 06/18/2009 10:30a [facility] Gal Stover 401.1 Hypertension Ruddy Gutiérrez M.D. 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 MLuisD. Reading Elevated W/O Hypertension 401.1 Hypertension Benign 780.79 Malaise And Fatigue Other 600.00 Hypertrophy Prostate W/O Urinary Obstruction & Other Luts Office Visit 02/26/2009 9:15a [facility] Gal Stover 796.2 Blood Pressure M., M.D. Reading Elevated W/O Hypertension 401.1 Hypertension Benign 272.2 Hyperlipidemia Mixed 780.4 Dizziness & Giddiness Plan of Treatment 02/07/2019 - Mauricio Mann N.Jagdish.I10 Essential (primary) hypertensionComments: CHECK BP TIW ( PRN)DIET AND FLUID COUNSELING LOW SODIUM DIETWT LOSSF/U LAB SMOKING CESSATIONFollow up:2 month FOR FBWE78.2 Mixed hyperlipidemiaComments: DIET REVIEWED CONTINUE DIETWT LOSSF/U LAB FBWJ44.9 Chronic obstructive pulmonary disease, unspecifiedComments:NEB OR MDI AND /OR OXYGEN SMOKING CESSATION [id number] Atherosclerotic heart disease of [place] coronary artery withComments:DIET REVIEWED WT LOSSF/U LAB STABLEF/U WITH CARDIOLOGY SMOKING ALIFFXBNIC50.9 Vitamin D deficiency, unspecifiedComments:INCREASE EXPOSURE TO SUNREVIEW OF DIETN40.0 Benign prostatic hyperplasia without lower urinary tract symComments:STABLEF/U PSAK21.0 Gastro-esophageal reflux disease with esophagitisComments:AVOID CAFFEINE, ETOH AND SPICY FOODSTUMS OR MYLANTA PRN CALL WITH PROBLEMS OR CONCERNSTOBACCO USE BJIGYUWHKU96.2 Other seasonal allergic rhinitisComments:INCREASE PO FLUID USE ANTIHISTAMINE PRN SECOND HAND SMOKING AVOIDANCE SMOKING CESSATION [id number] Polyosteoarthritis, unspecifiedComments:EXERCISE/HEAT/MESSAGETYLENOL OR MOTRIN PRNAVOID HEAVY LIFTINGWT LOSSM54.5 Low back painComments:EXERCISE/HEAT /MESSAGEAVOID HEAVY LIFTING WT LOSSTYLENOL OR MOTRIN PRNR06.02 Shortness of breathComments:NEB OR MDI AND /OR OXYGENINCREASE PO FLUIDRESTSMOKING VHVJRQSLIH59.0 Localized edemaComments:ELEVATE LE PRNELASTIC STOCKING / DEVAN WRAP PRNF/U LAB MLOKKVW59.42 HypomagnesemiaComments:F/U LABR97.20 Elevated prostate specific antigen [PSA]Comments:F/U WITH UROLOGY PRNHAD FULL WORKUP BY UROLOGY AND PLAN TO SOOUQMRI55.6 Pain in thoracic spineComments:EXERCISE/HEAT /MESSAGEAVOID HEAVY LIFTING WT LOSSTYLENOL OR MOTRIN PRN DUR MDRZZWZU58.2 Venous insufficiency (chronic) (peripheral)Comments:ELEVATE LEPRESSURE STOCKINGWT LOSS NEEDED F/U LABH10.403 Unspecified chronic conjunctivitis, bilateralComments: EYE CARE INSTRUCTIONSNATURAL TEARS PRNAVOID RUBBING EYESH91.8x3 Other specified hearing loss, bilateralComments:SMOKING CESSATION OBSERVE FOR NOWL20.9 Atopic dermatitis, unspecifiedComments:SKIN CARE INSTRUCTIONS LOTION OR BABY OIL 2-3 APPLICATION PER DAYUSE MOISTURIZING SOAPAVOID PROLONGED WATER EXPOSUREAVOID USING HOT WATER IN SEDKPRS52.210 Nicotine dependence, cigarettes, uncomplicatedComments:SMOKING CESSATION EZAOIRNTJPND43.9 Allergic rhinitis, unspecifiedComments:INCREASE PO FLUID USE ANTIHISTAMINE PRN SECOND HAND SMOKING AVOIDANCE SMOKING SCRYHOPHFF95.9 Pneumonia, unspecified organismComments: INCREASE PO HGYYRZYBXE01.03 Otalgia, bilateralComments:INCREASE PO FLUIDTYLENOL OR MOTRIN PRNANTIHISTAMINE JCKAHMTR27.022 Other mucopurulent conjunctivitis, left eyeComments:MBFBMGNZJ73.45 Other chronic allergic conjunctivitisComments: PNNUQUSWH66.0 Candidal stomatitisComments:ORAL LMYJAYZJ76.000A Wedge compression fracture of unspecified thoracic vertebra,
--- NOTE | 2019-03-01 15:16 | ED ---
Lower Extremity - HPI Summary HPI Summary: The patient is a 79 y/o M presenting to [facility] with a chief complaint of gradual onset intermittent right hip pain radiating to the right groin with numbness extending from the hip to the knee starting two days ago at 0230. He reports that he's had pain in the right hip for a while, and he told his PCP, but there has not been a workup. He states that he used to walk a lot, which would cause the pain to occur, but now that he doesn't walk much, the pain usually isn't present. He used Cortisone 10mg [employer]UAL [employer] THERAPIST to treat the pain. Currently, he is not in pain. He denies trauma to the right side. Hx of HTN, COPD, PNA. Current heavy everyday smoker, occasional EtOH, no substance use. - History of Current Complaint Chief Complaint: EDExtremityLower Stated Complaint: RIGHT HIP AND GROIN PAIN PER PT Time Seen by Provider: 03/01/19 15:06 Hx Obtained From: Patient Mechanism Of Injury: Unknown Onset of Pain: Days - two Onset/Duration: Still Present Severity Initially: Moderate Severity Currently: None Pain Intensity: 0 Pain Scale Used: 0-10 Numeric Timing: Intermittent Location: Radiates To - right hip radiating to right groin Character Of Pain: Sharp Associated Signs And Symptoms: Positive: Other - numbness from right hip to right knee Aggravating Factor(s): Ambulation Alleviating Factor(s): Rest Able to Bear Weight: Yes - Allergies/Home Medications Allergies/Adverse Reactions: Allergies Allergy/AdvReac Type Severity Reaction Status Date / Time Sulfa (Sulfonamide Allergy GI Upset Verified 03/01/19 14:23 Antibiotics) PMH/Surg Hx/FS Hx/Imm Hx Endocrine/Hematology History: Denies: Hx Diabetes, Hx Thyroid Disease Cardiovascular History: Reports: Hx Hypertension - ON MEDS Denies: Hx Hypercholesterolemia Respiratory History: Reports: Hx Chronic Obstructive Pulmonary Disease (COPD) - ON MEDS, Other Respiratory Problems/Disorders - RECENT PNEUMONIA Denies: Hx Asthma GI History: Denies: Hx Ulcer - Surgical History Surgery Procedure, Year, and Place: CARDIAC STENT 1996. LEFT SHOULDER SURGERY 1997 Infectious Disease History: No Infectious Disease History: Denies: Hx Clostridium Difficile, Hx Hepatitis, Hx Human Immunodeficiency Virus (HIV), Hx of Known/Suspected MRSA, Hx Shingles, Hx Tuberculosis, Hx Known/ Suspected VRE, Hx Known/Suspected VRSA, History Other Infectious Disease, Traveled Outside the [place] in Last 30 Days - Family History Known Family History: Positive: Cardiac Disease - Social History Alcohol Use: Occasionally Hx Substance Use: No Substance Use Type: Reports: None Hx Tobacco Use: Yes Smoking Status (MU): Heavy Every Day Tobacco Smoker Type: Cigarettes Amount Used/How Often: 1PPD Length of Time of Smoking/Using Tobacco: 50YRS Review of Systems Positive: Other - pain extending from right hip into groin Positive: Numbness - in the RLE extending from hip to knee All Other Systems Reviewed And Are Negative: Yes Physical Exam - Summary Physical Exam Summary: VITAL SIGNS: Reviewed. GENERAL: Patient is a well-developed and nourished male who is lying comfortable in the stretcher. Patient is not in any acute respiratory distress. HEAD AND FACE: No signs of trauma. No ecchymosis, hematomas or skull depressions. No sinus tenderness. EYES: PERRLA, EOMI x 2, No injected conjunctiva, no nystagmus. EARS: Hearing grossly intact. Ear canals and tympanic membranes are within normal limits. MOUTH: Oropharynx within normal limits. NECK: Supple, trachea is midline, no adenopathy, no JVD, no carotid bruit, no c- spine tenderness, neck with full ROM. CHEST: Symmetric, no tenderness at palpation LUNGS: Clear to auscultation bilaterally. No wheezing or crackles. CVS: Regular rate and rhythm, S1 and S2 present, no murmurs or gallops appreciated. ABDOMEN: Soft, non-tender. No signs of distention. No rebound no guarding, and no masses palpated. Bowel sounds are normal. EXTREMITIES: FROM in all major joints, no edema, no cyanosis or clubbing. Good pulses, good capillary refill, no pain. NEURO: Alert and oriented x 3. No acute neurological deficits. Speech is normal and follows commands. SKIN: Dry and warm. Triage Information Reviewed: Yes Vital Signs On Initial Exam: Initial Vitals Temp Pulse Resp BP Pulse Ox 98.1 F 71 16 153/74 94 03/01/19 14:17 03/01/19 14:17 03/01/19 14:17 03/01/19 14:17 03/01/19 14:17 Vital Signs Reviewed: Yes Diagnostics - Vital Signs Vital Signs Temp Pulse Resp BP Pulse Ox 03/01/19 15:00 72 95 03/01/19 14:56 67 154/71 93 03/01/19 14:55 70 92 03/01/19 14:17 98.1 F 71 16 153/74 94 - Laboratory Lab Statement: Any lab studies that have been ordered have been reviewed, and results considered in the medical decision making process. - Radiology R Hip/Pelvis XR Radiology Interpretation Completed By: Radiologist Summary of Radiographic Findings: 1. Osteopenia. 2. Osteoarthritis. 3. Peripheral arterial disease. 4. No acute osseous injury. If symptoms persist, recommend repeat imaging. ED physician has reviewed this radiology report. Re-Evaluation - Re-Evaluation First Eval Re-Evaluation Time: 16:15 Comment: I discussed results and discharge home with the patient. Lower Extremity Course/Dx - Course Assessment/Plan: The patient is a 79 y/o M presenting to [facility] with a chief complaint of gradual onset intermittent right hip pain radiating to the right groin with numbness extending from the hip to the knee starting two days ago at 0230. He reports that he's had pain in the right hip for a while, and he told his PCP, but there has not been a workup. He states that he used to walk a lot, which would cause the pain to occur, but now that he doesn't walk much, the pain usually isn't present. He used Cortisone 10mg [employer] THERAPIST to treat the pain. Currently, he is not in pain. He denies trauma to the right side. Hx of HTN, COPD, PNA. Current heavy everyday smoker, occasional EtOH, no substance use. X- ray of the right hip and pelvis impression: Osteopenia, question arthritis, peripheral artery disease, no acute osseous injury. In the ED course the patient is asymptomatic. Therefore, I discussed all the findings and test results with the patient and the need to follow-up with an orthopedic doctor and his PMD. The patient doesnt have any back pain, and no hip pain in the ED; pulses in the lower extremities are palpable at this time. I discussed all the findings and test results with the patient. Patient was instructed to return to the emergency room immediately if any of the symptoms return worsens. Plan of care was discussed with the patient and understands and agrees. All questions were answered at patient satisfaction. There were no further complaints or concerns. Lung exam before discharge: CTA B/L. Good air exchange. No wheezing or crackles heard. CVS: S1 and S2 present. No murmurs appreciated. Patient is alert and oriented x 3. Patient is hemodynamically stable. Patient will be discharged home with follow up PCP in the next 2-3 days. - Diagnoses Provider Diagnoses: Hip pain Discharge - Sign-Out/Discharge Documenting (check all that apply): Patient Departure - Patient will be discharged home. Patient Received Moderate/Deep Sedation with Procedure: No - Discharge Plan Condition: Stable Disposition: HOME Patient Education Materials: Hip Pain (ED) Referrals: Gal Stover MD [Primary Care Provider] - 3 Days Saleem Goss MD [Medical Doctor] - 3 Days Additional Instructions: Follow up with your primary care provider in 2-3 days. Follow up with orthopedics in 2-3 days. RETURN TO THE EMERGENCY DEPARTMENT FOR ANY NEW OR WORSENING SYMPTOMS. - Billing Disposition and Condition Condition: STABLE Disposition: Home - Attestation Statements Document Initiated by Angelica: Yes Documenting Scribe: Jamila Bhatt Provider For Whom Angelica is Documenting (Include Credential): Dr. Ihsan Mcdaniel MD Scribe Attestation: Jamila Lee scribed for Dr. Ihsan Mcdaniel MD on 03/02/19 at 1758. Scribe Documentation Reviewed: Yes Provider Attestation: The documentation as recorded by the Jamila rudolph accurately reflects the service I personally performed and the decisions made by me, Dr. Ihsan Mcdaniel MD Status of Scribe Document: Viewed
[2019-03-01 16:22] VITALS: BP 140/72
== END 2019-03-01 16:21 | disposition home or self-care (01) ==
LOC: ED 14:15
DX: M25.551 Pain in right hip (principal); R10.31 Right lower quadrant pain; R20.0 Anesthesia of skin; M85.88 Other specified disorders of bone density and structure, other site; M16.11 Unilateral primary osteoarthritis, right hip; I73.9 Peripheral vascular disease, unspecified; I10 Essential (primary) hypertension; J44.9 Chronic obstructive pulmonary disease, unspecified; Z95.5 Presence of coronary angioplasty implant and graft; Z88.2 Allergy status to sulfonamides; F17.210 Nicotine dependence, cigarettes, uncomplicated
CPT/HCPCS: 99282

== ENCOUNTER 2019-05-13 13:49 | Inpatient (IN) | payer MEDICARE ==
--- OUTSIDE RECORDS SUMMARY | 2019-05-13 16:23 | XMS REPORT | Summary of Care ---
:1940 Author Organization [facility] Address 1 [facility] [place] [address] Care Team Providers Name Role Phone Gal Stover MD Primary Care Provider Reason for Visit Auth/Cert Status Reason Specialty Diagnoses / Procedures Referred By Referred To Contact Contact Diagnoses Peripheral vascular disease, unspecified Procedures AL ANGIO AORTOBIFEMORAL W CATH AL ANGIO EXTREMITY UNILAT AL REVSC OPN/PRQ FEM/POP W/STNT/ANGIOP SM VSL Encounter Details Date Type Department Care Team Description 04/21/2019 - Hospital Encounter [facility] [place], Short Procedure 04/22/2019 1 [place] [address] 1 Lauri García [phone] [place] [address] Allergies Active Allergy Reactions Severity Noted Date Comments Sulfa Antibiotics Swelling 04/21/2019 Of abdomen documented as of this encounter (statuses as of 04/23/2019) Medications Medication Sig Dispensed Refills Start Date End Date Status amLodipine (NORVASC) Take 10 mg by mouth 0 Active 10 MG Oral Tab DAILY. Ipratropium-Albuterol Take by 0 Active (COMBIVENT RESPIMAT inhalation. IN) simvastatin (ZOCOR) Take 40 mg by mouth 0 Active 40 MG Oral Tab EVERY BEDTIME. metoprolol succinate Take 100 mg by 0 Active (TOPROL XL) 100 MG mouth DAILY. Oral TABLET SR 24 HR Omeprazole 20 MG Oral Take by mouth. 0 Active Tablet Delayed Release Dispersible Losartan Take by mouth. 0 Active Potassium-HCTZ 100-25 MG Oral Tab albuterol (PROVENTIL, 2.5 mg by 0 Active VENTOLIN) (2.5 Inhalation-SVN MG/3ML) 0.083% route TWICE DAILY. Inhalation Nebu Soln Aspirin 81 MG Oral Take 81 mg by mouth 0 Active Tab DAILY. predniSONE Take 10 mg by mouth 0 Active (DELTASONE) 10 MG DAILY. Oral Tab Tiotropium Take by inhalation 0 Active [place]-Olodaterol DAILY. (STIOLTO RESPIMAT) 2.5-2.5 MCG/ACT Inhalation Aero Soln clopidogrel (PLAVIX) Take 1 Tab by mouth 90 Tab 0 04/23/2019 Active 75 MG Oral Tab DAILY. OXYcodone Take 1 Tab by mouth 28 Tab 0 04/22/2019 Active (OXY-IR,OXY-FAST) 5 EVERY FOUR HOURS MG Oral Tab NEEDED (severe pain) for up to 20 doses. Max Daily Amount: 30 mg. Tamsulosin HCl Take 1 Cap by mouth 90 Cap 0 04/22/2019 Active (FLOMAX) 0.4 MG Oral DAILY. Cap documented as of this encounter (statuses as of 04/23/2019) Active Problems Problem Noted Date PVD (peripheral vascular disease) 04/08/2019 Overview: Added automatically from request for surgery [id number] Pain in joint involving right pelvic region and thigh 03/07/2019 documented as of this encounter (statuses as of 04/23/2019) Social History Tobacco Use Types Packs/Day Years Used Date Current Every Day Smoker Cigarettes 1 64 Started: 1954 Smokeless Tobacco: Never Used Tobacco Cessation: Ready to Quit: Yes Comments: tapering down 3 yesterday Alcohol Use Drinks/Week oz/Week Comments Yes 3 Cans of beer 3.0 1 shot a month Alcohol Habits Answer Date Recorded How often do you have a drink containing alcohol? 2-4 times a month 2018 How many drinks containing alcohol do you have on a 1 or 2 04/21/2019 typical day when you are drinking? How often do you have six or more drinks on one Never 04/21/2019 occasion? Sex Assigned at Date Recorded Not on file Job Start Date Occupation Industry Not on file Not on file Not on file Travel History Travel Start Travel End No recent travel history available. documented as of this encounter Last Filed Vital Signs Vital Sign Reading Time Taken Comments Blood Pressure 139/60 04/22/2019 8:15 AM EDT Pulse 85 04/22/2019 8:15 AM EDT Temperature 37.5 04/22/2019 8:15 AM EDT C (99.5 F) Respiratory Rate 16 04/22/2019 8:15 AM EDT Oxygen Saturation 95% 04/22/2019 8:30 AM EDT Inhaled Oxygen Concentration - - Weight 68.5 kg (151 lb) 04/21/2019 10:46 AM EDT Height 172.7 cm (5' 8") 04/21/2019 10:46 AM EDT Body Mass Index 22.96 04/21/2019 10:46 AM EDT documented in this encounter Discharge Summaries Moreno Cadet MD - 04/22/2019 9:24 AM EDT [facility] [place]. [id number] Discharge Summary Patient ID: Blade Sanchez [id number] 79-y.o. 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 He was symptomatic for RLE claudication and pain. He was evaluated in outpatient vascular surgery clinic. His CTA done at [facility] demonstrated R common iliac artery occlusion, R common femoral artery stenosis , and R SFA occlusion. His duplex usg showed no dopplerable pulses on RLE. As he was under threat of critical limb ischemia, surgical treatment was offered, benefits and risks were discussed with the patient. He agreed with the procedure. On 04/21/19, he had contrast angiography of aorta-iliacs and bilateral lower extremities. Percutaneoustransluminal balloon angioplasty of right and left common iliac artery, right and left external iliac artery with 6 mm x 40 mm Norris balloon was done.Then, Bilateral common iliac artery kissing balloon- expandable covered stent placement Followed (right common iliac artery 7 mm x 39 mm stent, left common iliac artery 8 mm x 39 mm covered stent). Before surgery, russell catheter insertion was difficult, likely due to enlarged prostate. Patient reported once in a night voiding. Postoperatively he did well, his pain was well controlled, urine output was adequate, tolerated diet. Aspirin 81 mg and loading dose Plavix (300 mg) was given. His right dorsalis pedis pulses became triphasic on doppler. Both feet became warm. Incision sites had no active bleeding, erythema, hematoma.He was educated and instructed for his post-discharge needs. He will need to follow up with vascularsurgery and urology. He was discharged in good condition. Consults: None Treatments: analgesia anticoagulation cardiac meds Russell catheter IV hydration wound care Procedures: Recent Labs 04/22/19 0933 WBC 15.68* HGB 12.1* HCT 36.4* PLAT 208 Recent Labs 04/22/19 0933 NA 135 K 3.8 CL 101 CO2 20* GLUCOSE 181* BUN 28* CREATININE 1.0 CALCIUM 9.1 EGFR >60 No results found for: INR NAME: Laura Murguia BN: [id number] VASCULAR LAB [facility] STUDY DATE: 04/08/19 [facility] [address] : 40 AP: Dale Lynne MD REFERRING PROVIDER: Dale Lynne EXAMINATION: Arterial - Lower INDICATION: PVD -443.9 TECHNOLOGIST: Jennifer Castaneda RT RVT IMPRESSION IMPRESSIONS: Indication: New patient with PVD PVRs and dopplers of the bilateral lower extremities were performed. The right lower extremity thigh PVR is moderate to severe, the calf, ankle, transmet, and 1st toe are severe with no obtainable doppler signal. The left lower extremity thigh, calf, ankle, transmet, and 1st toe PVRs are mild with triphasic dopplers obtained at the dorsalis pedis and posterior tibial arteries. LT STARR: 0.85 There is no previous exam available for comparison. PVRs and dopplers can be viewed in the [facility] Worker's office. STARR VALUE: Over 1.3 (Non compressible), .90-1.3 (Normal ) .89-.60 (Mild), .59-.40(Moderate),Under .40 (Severe) Operations: 1. Bilateral common iliac artery kissing balloon-expandable covered stent placement (right common iliac artery 7 mm x 39 mm stent, left common iliac artery 8 mm x 39 mm covered stent). 2. Percutaneous transluminal balloon angioplasty of right and left common iliac artery, right and left external iliac artery with 6 mm x 40 mm Norris balloon. 3. Recanalization of occluded right common iliac artery using subintimal recanalization technique. 4. Ultrasound-guided access of right and left common femoral artery (two separate accesses). 5. Aortogram, pelvic angiogram, and bilateral lower extremity arteriogram. 6. ProGlide Perclose closure of left common femoral artery access site. 7. Fluoroscopic guidance, radiological supervision and interpretation of aortogram and pelvic angiogram and bilateral lower extremity arteriogram. Complications: None Medications: Current Discharge Medication List START taking these medications clopidogrel 75 MG Tabs Commonly known as: PLAVIX Dose: 75 mg Start taking on: 04/23/2019 Quantity: 90 Tab Refills: 0 Take 1 Tab by mouth DAILY. OXYcodone 5 MG Tabs Commonly known as: OXY-IR,OXY-FAST Dose: 5 mg Quantity: 28 Tab Refills: 0 Take 1 Tab by mouth EVERY FOUR HOURS NEEDED (severe pain) for up to 20 doses. Max Daily Amount: 30 mg. Tamsulosin HCl 0.4 MG Caps Commonly known as: FLOMAX Dose: 0.4 mg Quantity: 90 Cap Refills: 0 Take 1 Cap by mouth DAILY. CONTINUE these medications which have NOT CHANGED albuterol (2.5 MG/3ML) 0.083% Nebu Commonly known as: PROVENTIL, VENTOLIN Dose: 2.5 mg Refills: 0 2.5 mg by Inhalation-SVN route TWICE DAILY. amLodipine 10 MG Tabs Commonly known as: NORVASC Dose: 10 mg Refills: 0 Take 10 mg by mouth DAILY. Aspirin 81 MG Tabs Dose: 81 mg Refills: 0 Take 81 mg by mouth DAILY. COMBIVENT RESPIMAT IN Refills: 0 Take by inhalation. Losartan Potassium-HCTZ 100-25 MG Tabs Refills: 0 Take by mouth. metoprolol succinate 100 MG Tb24 Commonly known as: TOPROL XL Dose: 100 mg Refills: 0 Take 100 mg by mouth DAILY. Omeprazole 20 MG Tbdd Refills: 0 Take by mouth. predniSONE 10 MG Tabs Commonly known as: DELTASONE Dose: 10 mg Refills: 0 Take 10 mg by mouth DAILY. simvastatin 40 MG Tabs Commonly known as: ZOCOR Dose: 40 mg Refills: 0 Take 40 mg by mouth EVERY BEDTIME. STIOLTO RESPIMAT 2.5-2.5 MCG/ACT Aers Generic drug: Tiotropium [place]-Olodaterol Refills: 0 Take by inhalation DAILY. Where to Get Your Medications These medications were sent to [facility] - [place], [place] - [address] [facility] [address] [facility] [address] Tamsulosin HCl 0.4 MG Caps These medications were sent to [facility] [address] [place] [address] [address] [facility] [address] Hours: M-F: 9:00am - 9:00pm clopidogrel 75 MG Tabs OXYcodone 5 MG Tabs Oxygen or Positive Pressure Devices: none Patient Instructions: Provider's Instructions Reason for Admission or Diagnosis:PVD (peripheral vascular disease) (HCC) Right common iliac artery occlusion Goals: To maintain functionality, to prevent readmission Activity/Restrictions: activity as tolerated and no heavy lifting, pushing, pulling for 2 months, no driving while taking narcotics Skin/Wound Care: Keep wound clean and dry, Reinforce dressing as needed, Observe for redness, swelling or drainage and Shower Discharge Diet: Regular Diet Special Instructions: Follow up with Dr. Hunter in two weeks at [place]. Follow up with urologyin a week for prostate evaluation. Take tylenol for your regular pain, take prescription pain medication for severe pain as needed. Call us or come to ED if you experience cold legs, severe unusual pain, active bleeding. Discharge Provider: Moreno Cadet MD Attending: Guera Hunter* Time: 09:18 No orders of the defined types were placed in this encounter. Total duration of time spent: 40 minutes. Provider Signature: Moreno Cadet MD Associated attestation - Guera Hunter MD - 04/22/2019 12:51 PM [facility] Supervising MD Documentation Date of Service: B# [id number] I saw and evaluated the patient. Discussed with resident and agree with the resident's findings andplan as documented in the resident's note. Guera Hunter MD Supervising Physiciandocumented in this encounter Discharge Instructions InstructionsMoreno Cadet MD - 04/22/2019Provider's Instructions Reason for Admission or Diagnosis:PVD (peripheral vascular disease) (HCC) Right common iliac artery occlusion Goals: To maintain functionality, to prevent readmission Activity/Restrictions: activity as tolerated and no heavy lifting, pushing, pulling for 2 months, no driving while taking narcotics Skin/Wound Care: Keep wound clean and dry, Reinforce dressing as needed, Observe for redness, swelling or drainage and Shower Discharge Diet: Regular Diet Special Instructions: Follow up with Dr. Hunter in two weeks at [place]. Follow up with urologyin a week for prostate evaluation. Take tylenol for your regular pain, take prescription pain medication for severe pain as needed. Call us or come to ED if you experience cold legs, severe unusual pain, active bleeding. Discharge Provider: Moreno Cadet MD Attending: Guera Hunter* Time: 09:18 {Provider's stop here} Nurse's Instructions Problems to report to your Physician: Excessive pain or discomfort Fever > 100.5 degrees Difficulty breathing Increase or smell in wound drainage Skin/Wound Care: Skin intact on discharge: {SKIN/WOUND CARE:19387} Medical Equipment/Supplies to help you at home: {MEDICAL SUPPLIES:53010} Help arranged for you Home Health/Receiving Agency: {HOME HEALTH/RECEIVING AGENCY:46881} documented in this encounter Plan of Treatment Date Type Specialty Care Team Description 05/06/2019 Office Visit Vascular Surgery Guera Hunter MD [address] [place] [address] [phone] Health Maintenance Due Date Last Done Comments MEDICARE ANNUAL WELLNESS VISIT 1940 DEPRESSION SCREENING 1952 HIV SCREENING 02/18/1955 ZOSTER IMMUNIZATION SERIES (1 of 2) 02/18/1990 FALL RISK ASSESSMENT 02/18/2005 PNEUMOCOCCAL 65+YRS (1 of 2 - 02/18/2005 PCV13) INFLUENZA VACCINE (#1) 2019 HPV IMMUNIZATION SERIES Aged Out No longer eligible based on patient's age to complete this topic MENINGOCOCCAL VACCINE IMM Aged Out No longer eligible based on patient's age to complete this topic documented as of this encounter Implants Implanted Type Area Furnace Attendant Device Shelf Model / Identifier Expiration Serial / Lot Date Vi[employer]ahn Graft [id number] - [id number] Right: [employer] 2020 [id number] / Implanted: Qty: 1 on 04/21/2019 by Guera Hunter MD at [facility] [employer] [id number] / Description:Inserted in the right common iliac artery. Viabahn Graft [id number] - [id number] Left: Iliac [employer] 12/23/2021 [id number] / Implanted: Qty: 1 on 04/21/2019 by Guera Hunter MD at [facility] [employer] [id number] / documented as of this encounter Procedures Procedure Name Priority Date/Time Associated Comments Diagnosis MAGNESIUM LEVEL Routine 04/22/2019 9:33 Results for this AM EDT procedure are in the results section. BASIC METABOLIC PANEL Routine 04/22/2019 9:33 Results for this AM EDT procedure are in the results section. CBC NO DIFFERENTIAL Routine 04/22/2019 9:33 Results for this AM EDT procedure are in the results section. SP BILAT PERIPHERAL Routine 04/21/2019 2:36 Results for this ANGIO PM EDT procedure are in the results section. SP INTRAVASCULAR Routine 04/21/2019 2:35 Results for this STENT PLACEMENT PM EDT procedure are in the results section. SP PERIPHERAL Routine 04/21/2019 2:34 Results for this ANGIOPLASTY PM EDT procedure are in the results section. SP ABDOMINAL AORTA Routine 04/21/2019 2:33 Results for this ANGIO W RUNOFF PM EDT procedure are in the results section. [facility] SCANNED DOCUMENT 04/21/2019 12:00 PM EDT IMAGING ORDER/RESULT 04/21/2019 12:00 PM EDT ARTERIOGRAM Planned Trip to 04/21/2019 11:32 PVD (peripheral PERIPHERAL ROOM 14 OR AM EDT vascular disease) (HCC) documented in this encounter Results MAGNESIUM LEVEL (04/22/2019 9:33 AM EDT) Magnesium 1.5 (L) 1.6 - 2.3 MG/DL [facility] Specimen Blood Performing Organization Address [facility] Phone Number [facility] [address] [place] [address] CBC NO DIFFERENTIAL (04/22/2019 9:33 AM EDT) WBC Count 15.68 (H)Comment: 4.23 - 9.07 [facility] Methodology was K/uL [facility] changed 09/19/2018. Please note updated reference range and units. RBC Count 3.77 (L) 4.30 - 5.89 [facility] M/UL [facility] Hemoglobin 12.1 (L) 13.7 - 17.5 [facility] g/dL [facility] Hematocrit 36.4 (L) 40.1 - 51.0 % [facility] MCV 96.6 (H) 79.0 - 92.2 [facility] FL [facility] MCH 32.1 25.7 - 32.2 [facility] PG [facility] MCHC 33.2 32.3 - 36.5 [facility] g/dL [facility] Platelet Count 208 163 - 337 [facility] K/uL [facility] MPV 9.0 (L) 9.4 - 12.4 FL [facility] RDW 13.6 11.6 - 14.4 % [facility] Specimen Blood Performing Organization Address [facility] Phone Number [place] flatev [facility] [address] [place] [address] BASIC METABOLIC PANEL (04/22/2019 9:33 AM EDT) Glucose 181 (H) 70 - 99 mg/dl [facility] BUN 28 (H) 9 - 20 mg/dl [facility] Creatinine 1.0 0.8 - 1.5 mg/dl [facility] Sodium 135 134 - 145 mmol/L [facility] Potassium 3.8 3.5 - 5.1 mmol/L [facility] Chloride 101 98 - 107 mmol/L [facility] CO2 20 (L) 22 - 30 mmol/L [facility] Calcium 9.1 8.3 - 10.1 mg/dl [facility] eGFR >60 See Interpretation [facility] Comment: Below ml/min/1.73ml [facility] Estimated GFR Interpretation: Above 60ml/min/1.73m2 = Normal Renal Function 30-59 ml/min/1.73m2 = Stage 3 Chronic Kidney Disease 15-29 ml/min/1.73m2 = Stage 4 Chronic Kidney Disease Less than 15 ml/min/1.73m2 = Stage 5 Chronic Kidney Disease The GFR value is calculated using the Modification of Diet in Renal Disease ( MDRD) Study Equation which can be found at: https://www.kidney.org/content/ades-wtaxr-rgzhrotn BUN/Creatinine 28 (H) 6 - 22 [facility] Anion Gap 14 (H) 3 - 11 mmol/L [facility] Specimen Blood Performing Organization Address City/State/Zipcode Phone Number [facility] [address] [place] [address] SP BILAT PERIPHERAL ANGIO (04/21/2019 2:36 PM EDT) Specimen Impressions Performed At Please see OpNote. Urgency: Routine. This is a routine medical imaging report. Recommendation: No specific imaging recommendation. Signed by Default Provider on 04/23/2019 9:00 AM Narrative Performed At Procedure(s): SP ABDOMINAL AORTA ANGIO W RUNOFF, SP PERIPHERAL ANGIOPLASTY, SP INTRAVASCULAR STENT PLACEMENT, SP BILAT PERIPHERAL ANGIO Date of service: 04/21/2019 12:00 PM Provided clinical information: 79 years, Male, "PVD" Procedure and materials: Standard protocol. Comparison studies: None. Observations: Imaging was provided for a case that was performed in OR 14. Procedure Note Interface, Rad Results - 04/23/2019 9:03 AM EDT Procedure(s): SP ABDOMINAL AORTA ANGIO W RUNOFF, SP PERIPHERAL ANGIOPLASTY, SP INTRAVASCULAR STENT PLACEMENT, SP BILAT PERIPHERAL ANGIO Date of service: 04/21/2019 12:00 PM Provided clinical information: 79 years, Male, "PVD" Procedure and materials: Standard protocol. Comparison studies: None. Observations: Imaging was provided for a case that was performed in [place] 14. IMPRESSION Please see OpNote. Urgency: Routine. This is a routine medical imaging report. Recommendation: No specific imaging recommendation. Signed by Default Provider on 04/23/2019 9:00 AM SP INTRAVASCULAR STENT PLACEMENT (04/21/2019 2:35 PM EDT) Specimen Impressions Performed At Please see OpNote. Urgency: Routine. This is a routine medical imaging report. Recommendation: No specific imaging recommendation. Signed by Default Provider on 04/23/2019 9:00 AM Narrative Performed At Procedure(s): SP ABDOMINAL AORTA ANGIO W RUNOFF, SP PERIPHERAL ANGIOPLASTY, SP INTRAVASCULAR STENT PLACEMENT, SP BILAT PERIPHERAL ANGIO Date of service: 04/21/2019 12:00 PM Provided clinical information: 79 years, Male, "PVD" Procedure and materials: Standard protocol. Comparison studies: None. Observations: Imaging was provided for a case that was performed in [place] 14. Procedure Note Interface, Rad Results - 04/23/2019 9:03 AM EDT Procedure(s): SP ABDOMINAL AORTA ANGIO W RUNOFF, SP PERIPHERAL ANGIOPLASTY, SP INTRAVASCULAR STENT PLACEMENT, SP BILAT PERIPHERAL ANGIO Date of service: 04/21/2019 12:00 PM Provided clinical information: 79 years, Male, "PVD" Procedure and materials: Standard protocol. Comparison studies: None. Observations: Imaging was provided for a case that was performed in [place] 14. IMPRESSION Please see OpNote. Urgency: Routine. This is a routine medical imaging report. Recommendation: No specific imaging recommendation. Signed by Default Provider on 04/23/2019 9:00 AM SP PERIPHERAL ANGIOPLASTY (04/21/2019 2:34 PM EDT) Specimen Impressions Performed At Please see OpNote. Urgency: Routine. This is a routine medical imaging report. Recommendation: No specific imaging recommendation. Signed by Default Provider on 04/23/2019 9:00 AM Narrative Performed At Procedure(s): SP ABDOMINAL AORTA ANGIO W RUNOFF, SP PERIPHERAL ANGIOPLASTY, SP INTRAVASCULAR STENT PLACEMENT, SP BILAT PERIPHERAL ANGIO Date of service: 04/21/2019 12:00 PM Provided clinical information: 79 years, Male, "PVD" Procedure and materials: Standard protocol. Comparison studies: None. Observations: Imaging was provided for a case that was performed in [place] 14. Procedure Note Interface, Rad Results - 04/23/2019 9:03 AM EDT Procedure(s): SP ABDOMINAL AORTA ANGIO W RUNOFF, SP PERIPHERAL ANGIOPLASTY, SP INTRAVASCULAR STENT PLACEMENT, SP BILAT PERIPHERAL ANGIO Date of service: 04/21/2019 12:00 PM Provided clinical information: 79 years, Male, "PVD" Procedure and materials: Standard protocol. Comparison studies: None. Observations: Imaging was provided for a case that was performed in OR 14. IMPRESSION Please see OpNote. Urgency: Routine. This is a routine medical imaging report. Recommendation: No specific imaging recommendation. Signed by Default Provider on 04/23/2019 9:00 AM SP ABDOMINAL AORTA ANGIO W RUNOFF (04/21/2019 2:33 PM EDT) Specimen Impressions Performed At Please see OpNote. Urgency: Routine. This is a routine medical imaging report. Recommendation: No specific imaging recommendation. Signed by Default Provider on 04/23/2019 9:00 AM Narrative Performed At Procedure(s): SP ABDOMINAL AORTA ANGIO W RUNOFF, SP PERIPHERAL ANGIOPLASTY, SP INTRAVASCULAR STENT PLACEMENT, SP BILAT PERIPHERAL ANGIO Date of service: 04/21/2019 12:00 PM Provided clinical information: 79 years, Male, "PVD" Procedure and materials: Standard protocol. Comparison studies: None. Observations: Imaging was provided for a case that was performed in [place] 14. Procedure Note Interface, Rad Results - 04/23/2019 9:03 AM EDT Procedure(s): SP ABDOMINAL AORTA ANGIO W RUNOFF, SP PERIPHERAL ANGIOPLASTY, SP INTRAVASCULAR STENT PLACEMENT, SP BILAT PERIPHERAL ANGIO Date of service: 04/21/2019 12:00 PM Provided clinical information: 79 years, Male, "PVD" Procedure and materials: Standard protocol. Comparison studies: None. Observations: Imaging was provided for a case that was performed in OR 14. IMPRESSION Please see OpNote. Urgency: Routine. This is a routine medical imaging report. Recommendation: No specific imaging recommendation. Signed by Default Provider on 04/23/2019 9:00 AM IMAGING ORDER/RESULT (04/21/2019 12:00 PM EDT) Narrative Performed At documented in this encounter Visit Diagnoses Diagnosis PVD (peripheral vascular disease) (HCC) - Primary Peripheral vascular disease, unspecified documented in this encounter Administered Medications Medication Order MAR Action Action Date Dose Rate Site acetaminophen (TYLENOL) tablet 1,000 mg 1,000 mg, Oral, Q6 HRS, First dose on Sun04/22/19 at 0620, Until Discontinued albuterol HFA (VENTOLIN) inhalation Given 04/22/2019 6:10 AM EDT 1 Puff (Supervised Pt Admin) 1 Puff 1 Puff, Inhalation, Q4 HRS PRN, Starting Sun04/22/19 at 0124, Until Sun04/22/19 at 1325, Shortness of Breath/Wheezing/dyspnea, PER RT FREQUENCY Given 04/22/2019 1:33 AM EDT 1 Puff albuterol-ipratropium (DUO-NEB) nebulizer unit Given 04/21/2019 3:31 PM EDT 3 mg dose (RT ADMIN) 0.5-2.5 (3) MG/3ML 3 mg, Inhalation-SVN, NOW, 1 dose, Sun04/21/19 at 1540 albuterol-ipratropium (DUO-NEB) nebulizer unit Given 04/22/2019 9:08 AM EDT 3 mg dose (RT ADMIN) 0.5-2.5 (3) MG/3ML 3 mg, Inhalation-SVN, NOW, 1 dose, Sun04/22/19 at 0910 amLodipine (NORVASC) tablet 10 mg Given 04/22/2019 8:44 AM EDT 10 mg 10 mg, Oral, DAILY, First dose on Sun04/21/19 at 1740, Until Discontinued aspirin (ECOTRIN) enteric coated tablet 81 mg Given 04/22/2019 8:44 AM EDT 81 mg 81 mg, Oral, DAILY, First dose on Sun04/22/19 at 0900, Until Discontinued calcium gluconate IV mixture 9.3 New Bag 04/21/2019 4:38 PM EDT 9.3 mEq 150 mL/hr mEq 9.3 mEq (2 g), Intravenous, at 150 mL/hr, X1, 1 dose, First dose on Sun04/21/19 at 1610 clopidogrel (PLAVIX) tablet 300 mg Given 04/22/2019 7:21 AM EDT 300 mg 300 mg, Oral, X1, 1 dose, First dose on Sun04/22/19 at 0620 clopidogrel (PLAVIX) tablet 75 mg 75 mg, Oral, DAILY, First dose on Sun04/22/19 at 0900, Until Discontinued ipratropium (ATROVENT HFA) 17 MCG/ACT Given 04/22/2019 6:10 AM EDT 1 Puff inhalation (Supervised Pt Admin) 1 Puff 1 Puff, Inhalation, RT Q4 HRS PRN, Starting Sun04/22/19 at 0124, Until Sun04/22/19 at 1325, PER RT FREQUENCY, Shortness of Breath/Wheezing/dyspnea metoprolol succinate (TOPROL XL) 24 hour Given 04/22/2019 8:44 AM EDT 100 mg tablet 100 mg 100 mg, Oral, DAILY, First dose on Sun04/21/19 at 1740, Until Discontinued morphine (PF) syringe 2 mg 2 mg, Intravenous Push, Q4 HRS PRN, Starting Sun04/22/19 at 0611, Until Sun at 1325, Severe Pain (pain scale 7-10) - IV - 1st line - if immediate effect required or patient cannot tolerate PO OXYcodone (OXY-IR,OXY-FAST) immediate release tablet 5 mg 5 mg, Oral, Q4 HRS PRN, Starting Sun04/22/19 at 0611, Until Sun04/22/19 at 1325, Moderate Pain (pain scale 4-6)PO 2nd line - if immediate effect not required & can tolerate PO and still has moderate pain 4 hrs after admin of 1st line agent or did not tolerate 1st line agent pantoprazole (PROTONIX) enteric coated tablet Given 04/22/2019 6:12 AM EDT 40 mg 40 mg 40 mg, Oral, PRE BREAKFAST, First dose on Sun04/22/19 at 0600, Until Discontinued Tamsulosin HCl (FLOMAX) capsule 0.4 mg Given 04/22/2019 10:17 AM EDT 0.4 mg 0.4 mg, Oral, DAILY, First dose on Sun04/22/19 at 0900, Until Discontinued documented in this encounter Insurance Payer Benefit Plan / Subscriber ID Effective Dates Phone Address Type Group AETNA MEDICARE AETNA MEDICARE xxxxxxxx 2018-Present [employer] ADVANTAGE ADVANTAGE Guarantor Name Account Type Relation to Date of Phone Billing Address Patient Blade Sanchez Personal/Family 1940 [address] (Home) [facility] [phone] [place], [place] (Work) [id number] documented as of this encounter
--- OUTSIDE RECORDS SUMMARY | 2019-05-13 16:23 | XMS REPORT | Summary of Care ---
:1940 Author Organization [facility] Address [address] [facility] [place] [address] Care Team Providers Name Role Phone Gal Stover MD Primary Care Provider Reason for Referral MRI/CAT/PET Scan (Routine) Status Reason Specialty Diagnoses / Referred By Referred To Procedures Contact Contact Pending Review Diagnoses PVD (peripheral vascular disease) (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) [address] [place] [address] [place] [address] Allergies Active Allergy Reactions Severity Noted Date Comments Sulfa Antibiotics Swelling 04/21/2019 Of abdomen documented as of this encounter (statuses as of 05/09/2019) Medications Medication Sig Dispensed Refills Start End Date Status Date amLodipine Take 10 mg by 0 Active (NORVASC) 10 MG mouth DAILY. Oral Tab Ipratropium-Albut Take by 0 Active jojo (COMBIVENT inhalation. RESPIMAT IN) simvastatin Take 40 mg by 0 Active (ZOCOR) 40 MG mouth EVERY Oral Tab BEDTIME. metoprolol Take 100 mg by 0 Active succinate (TOPROL mouth DAILY. XL) 100 MG Oral TABLET SR 24 HR Omeprazole 20 MG Take by mouth. 0 Active Oral Tablet Delayed Release Dispersible Losartan Take by mouth. 0 Active Potassium-HCTZ 100-25 MG Oral Tab albuterol 2.5 mg by 0 Active (PROVENTIL, Inhalation-SVN VENTOLIN) (2.5 route TWICE MG/3ML) 0.083% DAILY. Inhalation Nebu Soln predniSONE Take 10 mg by 0 Active (DELTASONE) 10 MG mouth DAILY. Oral Tab Tiotropium Take by 0 Active [place]-Olodatero inhalation DAILY. l (STIOLTO RESPIMAT) 2.5-2.5 MCG/ACT Inhalation Aero Soln clopidogrel Take 1 Tab by 90 Tab 0 Active (PLAVIX) 75 MG mouth DAILY. 9 Oral Tab Tamsulosin HCl Take 1 Cap by 90 Cap 0 Active (FLOMAX) 0.4 MG mouth DAILY. 9 Oral Cap amiodarone Take 200 mg by 0 Active (PACERONE, mouth DAILY. CORDARONE) 200 MG Indications: Oral Atrial TabIndications: Fibrillation Atrial Fibrillation furosemide Take 40 mg by 0 Active (LASIX) 40 MG mouth DAILY. Oral Tab nicotine Place 14 mg onto 0 Active transdermal skin DAILY. patch-daily (NICODERM) 14 MG/24HR Transdermal PATCH 24 HR potassium Take 20 mEq by 0 Active chloride mouth TWICE (KLOR-CON) 20 MEQ DAILY. Oral Indications: Low PackIndications: Amount of Hypokalemia Potassium in the Blood apixaban Take by mouth 0 Active (ELIQUIS) 5 MG TWICE DAILY. Oral Indications: TabIndications: edema edema Aspirin 81 MG Take 81 mg by 0 05/06/20 Discontinued Oral Tab mouth DAILY. 19 (Other) OXYcodone Take 1 Tab by 28 Tab 0 05/06/20 Discontinued (OXY-IR,OXY-FAST) mouth EVERY FOUR 9 19 (Other) 5 MG Oral Tab HOURS NEEDED (severe pain) for up to 20 doses. Max Daily Amount: 30 mg. documented as of this encounter (statuses as of 05/09/2019) Active Problems Problem Noted Date PVD (peripheral vascular disease) 04/08/2019 Overview: Added automatically from request for surgery [id number] Pain in joint involving right pelvic region and thigh 03/07/2019 documented as of this encounter (statuses as of 05/09/2019) Social History Tobacco Use Types Packs/Day Years Used Date Current Every Day Smoker Cigarettes 1 64 Started: 1954 Smokeless Tobacco: Never Used Comments: tapering down 3 yesterday Alcohol Use [...] Sign Reading Time Taken Comments Blood Pressure 102/52 05/06/2019 10:14 AM EDT Pulse 64 05/06/2019 10:14 AM EDT Temperature - - Respiratory Rate - - Oxygen Saturation - - Inhaled Oxygen Concentration - - Weight 72.6 kg (160 lb) 05/06/2019 10:14 AM EDT Height 172.7 cm (5' 8") 05/06/2019 10:14 AM EDT Body Mass Index 24.33 05/06/2019 10:14 AM EDT documented in this encounter Progress Notes Emiliano Miller NP - 05/06/2019 10:20 AM EDT PATIENT: Blade Sanchez : 1940 DATE OF SERVICE: 05/06/2019 CHIEF COMPLAINT: Chief Complaint Patient presents with Follow Up Subjective HISTORY OF PRESENT ILLNESS: Blade Sanchez is a 79-y.o. male. HPI With history of COPD and small aortic aneurysm, referred to vascular surgery clinic for right lower extremity claudication and rest pain. Complains of right hip pain and right thigh pain upon ambulation less than 100 feet for past several years which is getting worse. Complains of right foot numbness and tingling. No ulceration. Current 1/2 ppd smoking. No gangrene. Uses home oxygen for copd at night. 05/06/2019: Patient seen in 2 week follow up status post: PROCEDURE: 1. Bilateral common iliac artery kissing balloon-expandable covered stent placement (right common iliac artery 7 mm x 39 mm stent, left common iliac artery 8 mm x 39 mm covered stent, Gillett VBX stents). 2. Percutaneous transluminal balloon angioplasty of right and left common iliac artery, right and left external iliac artery with 6 mm x 40 mm Howard balloon. 3. Recanalization of occluded right common iliac artery using subintimal recanalization technique. 4. Ultrasound-guided access of right and left common femoral artery (two separate accesses). 5. Aortogram, pelvic angiogram, and bilateral lower extremity arteriogram. 6. ProGlide Perclose closure of left common femoral artery access site. 7. Fluoroscopic guidance, radiological supervision and interpretation of aortogram and pelvic angiogram and bilateral lower extremity arteriogram. Reports he was readmitted to [facility] after surgery due to pneumonia and bilateral leg swelling. Currently residing at [facility]. Denies any leg pain or cramping with walking or at rest. Using continuous oxygen at this time. Reports shortness of breath with activity. Has quit smoking at this time. Denies any chest pain, fever or chills. PREVIOUS DIAGNOSTICS: 04/08/2019 Ankle brachial index: PVRs and dopplers of the bilateral lower extremities were performed. The right lower extremity thigh PVR is moderate to severe, the calf, ankle, transmet, and 1st toe aresevere with no obtainable doppler signal. The left lower extremity thigh, calf, ankle, transmet, and 1st toe PVRs are mild with triphasic dopplers obtained at the dorsalis pedis and posterior tibial arteries. LT STARR: 0.85 There is no previous exam available for comparison. PVRs and dopplers can be viewed in the [facility] office. I personally reviewed Computerized Tomographic angiography from [facility]:3.5 cm abdominal aortic aneurysm Occluded right common iliac artery and stenotic right external iliac artery, multi-segment right superficial femoral artery occlusion Past Medical History: Diagnosis Date Acute coronary syndrome (HCC) Back pain COPD (chronic obstructive pulmonary disease) ([facility]) Coronary artery disease GERD (gastroesophageal reflux disease) High cholesterol Hypertension Osteoarthritis PVD (peripheral vascular disease) ([facility]) History reviewed. No pertinent family history. Current Outpatient Medications Medication Sig albuterol (PROVENTIL, VENTOLIN) (2.5 MG/3ML) 0.083% Inhalation Nebu Soln 2.5 mg by Inhalation-SVN route TWICE DAILY. amiodarone (PACERONE, CORDARONE) 200 MG Oral Tab Take 200 mg by mouth DAILY. Indications: Atrial Fibrillation amLodipine (NORVASC) 10 MG Oral Tab Take 10 mg by mouth DAILY. apixaban (ELIQUIS) 5 MG Oral Tab Take by mouth TWICE DAILY. Indications : edema clopidogrel (PLAVIX) 75 MG Oral Tab Take 1 Tab by mouth DAILY. furosemide (LASIX) 40 MG Oral Tab Take 40 mg by mouth DAILY. Ipratropium-Albuterol (COMBIVENT RESPIMAT IN) Take by inhalation. Losartan Potassium-HCTZ 100-25 MG Oral Tab Take by mouth. metoprolol succinate (TOPROL XL) 100 MG Oral TABLET SR 24 HR Take 100 mg by mouth DAILY. nicotine transdermal patch-daily (NICODERM) 14 MG/24HR Transdermal PATCH [address] 14 mg onto skin DAILY. Omeprazole 20 MG Oral Tablet Delayed Release Dispersible Take by mouth. potassium chloride (KLOR-CON) 20 MEQ Oral Pack Take 20 mEq by mouth TWICE DAILY. Indications:Low Amount of Potassium in the Blood predniSONE (DELTASONE) 10 MG Oral Tab Take 10 mg by mouth DAILY. simvastatin (ZOCOR) 40 MG Oral Tab Take 40 mg by mouth EVERY BEDTIME. Tamsulosin HCl (FLOMAX) 0.4 MG Oral Cap Take 1 Cap by mouth DAILY. Tiotropium [place]-Olodaterol (STIOLTO RESPIMAT) 2.5-2.5 MCG/ACT Inhalation Aero Soln Take by inhalation DAILY. No current facility-administered medications for this visit. Allergies Allergen Reactions Sulfa Antibiotics Swelling Of abdomen Social History Socioeconomic History Marital status: Spouse name: Not on file Number of children: Not on file Years of education: Not on file Highest education level: Not on file Occupational History Not on file Social Needs Financial resource strain: Not on file Food insecurity: Worry: Not on file Inability: Not on file Transportation needs: Medical: Not on file Non-medical: Not on file Tobacco Use Smoking status: Current Every Day Smoker Packs/day: 1.00 Years: 64.00 Pack years: 64.00 Types: Cigarettes Start date: 1954 Smokeless tobacco: Never Used Tobacco comment: tapering down 3 yesterday Substance and Sexual Activity Alcohol use: Yes Alcohol/week: 3.0 standard drinks Types: 3 Cans of beer per week Frequency: 2-4 times a month Drinks per session: 1 or 2 Binge frequency: Never Comment: 1 shot a month Drug use: Never Sexual activity: Not on file Lifestyle Physical activity: Days per week: Not on file Minutes per session: Not on file Stress: Not on file Relationships Social connections: Talks on phone: Not on file Gets together: Not on file Attends islam service: Not on file Active member of club or organization: Not on file Attends meetings of clubs or organizations: Not on file Relationship status: Not on file Intimate partner violence: Fear of current or ex partner: Not on file Emotionally abused: Not on file Physically abused: Not on file Forced sexual activity: Not on file Other Topics Concern Not on file Social History Narrative Not on file REVIEW OF SYSTEMS: Review of Systems Constitutional: Negative for fever. Eyes: Negative for blurred vision. Cardiovascular: Positive for orthopnea. Negative for chest pain and claudication. Genitourinary: Negative for dysuria. Musculoskeletal: Positive for myalgias. Negative for back pain. Neurological: Negative for dizziness. Objective PHYSICAL EXAM: VITALS: BP 102/52 (BP Location: Right arm, Patient Position: Sitting) | Pulse 64 | Ht 5' 8" (1.727 m) | Wt 160 lb (72.6 kg) | BMI 24.33 kg/m Body mass index is 24.33 kg/m. Physical Exam Constitutional: He is oriented to person, place, and time. He appears well- developed. HENT: Head: Normocephalic. Eyes: EOM are normal. Neck: Normal range of motion. Neck supple. Cardiovascular: Regular rhythm. Pulses: Radial pulses are 2+ on the right side, and 2+ on the left side. Femoral pulses are 1+ on the right side, and 2+ on the left side. Dorsalis pedis pulses are 0 on the right side, and 2+ on the left side. Posterior tibial pulses are 0 on the right side, and 2+ on the left side. Bilateral lower extremity warm, right foot capillary refill decreased compared to left side, no ulceration or gangrene. Pulmonary/Chest: Effort normal. Abdominal: Soft. He exhibits no distension and no mass. Musculoskeletal: Normal range of motion. Neurological: He is alert and oriented to person, place, and time. 05/06/2019: Alert and oriented X 3, Abdomen soft, large areas of ecchymosis, non- tender. Bilateral groin incisions without signs or symptoms of infection. Mild lower extremity edema left more than right. DIAGNOSTICS: 05/06/2019 IMPRESSIONS: Patient is status post bilateral lower extremity angioplasty. ABIS and PVRs of the bilateral lower extremity indicates mild bilateral occlusive arterial disease. PVRs of the bilateral thighs, calves, ankles, metetarsal and toe digits are mild. Biphasic bilateral DP/PTs. Right STARR 1.2, Left STARR :1.2 There is significant improvement since previous exam of 04/08/2019. ASSESSMENT / IMPRESSION: 79 y/m with copd, severe right lower extremity peripheral atherosclerotic arterial disease with critical limb ischemia with no dopplerable right foot pulses, no tissue loss. Neuromotor intact. 3.5 cm abdominal aortic aneurysm. 05/06/2019: Patient status post bilateral common iliac artery stent placement and bilateral common iliac angioplasty and bilateral external iliac angioplasty. Progressing well, participating in physicaltherapy. Plan Critical limb ischemia of right lower extremity, patient may benefit from aortogram, pelvic angiogram possible bilateral lower extremity arteriogram possible angioplasty possible stent placement. Patient will likely require recanalization of right common iliac artery possible stent placement. Given the small 3.5 cm abdominal aortic aneurysm, at this point of time we will continue surveillance untilit reaches 5.5 cm Follow-up with annual aortic ultrasound. Access site complication including but not limited to bleeding, hematoma, possible requirement of blood transfusion, and repair of arterial injury were explained. Possible of unable to cross the occlusion was discussed. Possible contrast induced renal failure was explained. They understand and would like to proceed. I discussed possibility of requiring additional procedures to address right superficial femoral artery lesion at a later stage via left common femoral artery access or via left brachialartery access. 05/06/2019: Patient seen with Dr. Hunter. Both lower legs wrapped with kerlix and DEVAN wraps. Recommend wrapping legs every morning, may remove at bedtime. Continue with physical therapy. Continue Eliquis and Plavix at this time. Follow up with Vascular Surgery in 6 months for STARR's or sooner with problems. Author: Emiliano Miller NP 05/06/2019 10:24 Associated attestation - Guera Hunter MD - [facility]/2019 2[facility] Supervising MD Documentation Date of Service: B# [id number] I saw and evaluated the patient. Discussed with resident and agree with the resident's findings andplan as documented in the resident's note. Additional Comments: Patient doing well patient's thigh pain, calf claudication and numbness have completely resolved. STARR on the right side is now normal. Patient was recently admitted to [facility] with pneumonia. Bilateral groin access site appears clean and dry and intact. Follow-up in 6 months. With the STARR all questions and concerns were addressed. Guera Hunter MD Supervising Physiciandocumented in this encounter Plan of Treatment Date Type Specialty Care Team Description 11/11/2019 Office Visit Vascular Surgery Guera Hunter MD [address] [place] [address] Name Type Priority Associated Diagnoses Order Schedule VL BODY MEASURE STARR Imaging Routine PVD (peripheral vascular Expected: , MULTIPLE disease) (HCC) Expires: 07/04/2020 S/P insertion of iliac artery stent Health Maintenance Due Date Last Done Comments MEDICARE ANNUAL WELLNESS VISIT 1940 DEPRESSION SCREENING 1952 HIV SCREENING 02/18/1955 ZOSTER IMMUNIZATION SERIES (1 02/18/1990 of 2) FALL RISK ASSESSMENT 02/18/2005 PNEUMOCOCCAL 65+YRS (1 of 2 - 02/18/2005 PCV13) INFLUENZA VACCINE (#1) 2019 07/02/2018, 07/19/2017 HPV IMMUNIZATION SERIES Aged Out No longer eligible based on patient's age to complete this topic MENINGOCOCCAL VACCINE IMM Aged Out No longer eligible based on patient's age to complete this topic documented as of this encounter Implants Implanted Type Area Small Order Cutter Device Shelf Model / Identifier Expiration Serial / Lot Date Viabahn Graft [id number] - [id number] Right: Andreas FERMIN 2020 [id number] / Implanted: Qty: 1 on 04/21/2019 by Guera Hunter MD at [facility] [employer] [id number] / Description:Inserted in the right common iliac artery. Vi[employer]ahn Graft [id number] - [id number] Left: Ili[employer] 12/23/2021 [id number] / Implanted: Qty: 1 on 04/21/2019 by Guera Hunter MD at [facility] [id number] / documented as of this encounter Results Not on filedocumented in this encounter Visit Diagnoses Diagnosis S/P insertion of iliac artery stent - Primary Other postprocedural status PVD (peripheral vascular disease) (HCC) Peripheral vascular disease, unspecified documented in this encounter Insurance Payer Benefit Plan / Subscriber ID Effective Dates Phone Address Type Group AETNA MEDICARE AETNA MEDICARE xxxxxxxx 2018-Present [employer] ADVANTAGE ADVANTAGE Guarantor Name Account Type Relation to Date of Phone Billing Address Patient Blade Sanchez Personal/Family 1940 [address] [facility] (Home) [facility] [phone] [place], [place] (Work) [id number] documented as of this encounter
--- OUTSIDE RECORDS SUMMARY | 2019-05-13 16:23 | XMS REPORT | Continuity of Care Document ---
:1940 External Reference #:[id number] Author Name Mauricio Mann N.P. 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 Onset: 06/22/2015 Social History Type Date Description Comments Sex Unknown Tobacco Use Start: Unknown Current Cigarette Smoker pt has been smoking a pack a day for 50 years ETOH Use Occasionally consumes alcohol Tobacco Use Start: Unknown Patient is a current smoker, smokes every day Smoking Status Reviewed: 03/31/19 Patient is a current smoker, smokes every day Allergies, Adverse Reactions, Alerts Active Allergies Reaction Severity Comments Date Sulfa Antibiotics 07/19/2012 Tobramycin 10/07/2014 Inactive Allergies NKDA 01/16/2012 NKDA 01/16/2012 Medications Active Medications SIG Qnty Indications Ordering Date Provider Aspirin 81 Low Dose 1 by mouth every 90units I10 [facility] 03/10[facility]2019 morning MNelly Smith 81mg Chewtabs Bacitracin Zinc apply to wound on 28.350gm L89.312 [facility] 03/07/2019 buttocks bid x 14 MNelly Smith 500Unit/GM Ointment days. after washing with soap and water and pad dry. Combivent Respimat 1 puff twice a 12gm J44.9 CkGal hercules 11/21/2018 day Nelly Gutiérrez 20-100mcg/Act Aerosol Hydrocodone-Acetamino 1 tab by mouth 21tabs M54.6 [facility] 10/28/2018 phen three times a day MNelly Smith 7.5-325mg Tablets as needed Prednisolone Acetate 1 drops both eyes 10ml H10.45 [facility] 08/06/2018 1% twice a day as MNelly Smith Suspension needed Prednisone 1/2-1 tab by 90tabs J44.9 [facility] 03/28/2018 20mg Tablets mouth every day Nelly Gutiérrez Nebulizer use as directed 1units J44.9 [facility], [facility] 01/21/2018 Device MNelly Smith Nebulizer use with 2units J44.9 [facility] 01/21/2018 Kit/Tubing/Mouthpiece nebulizer every 4 M. M.D. hours as needed Kit Albuterol Sulfate use with 180ml J44.9 [facility] 01/21/2018 nebulizer q4 MMarla SmithDLuis (2.5mg/3ML) 0.083% hours as needed Nebulizer for cough/sob Betamethasone apply to affected 45gm L20.9 Gal Stover 12/05/2017 Dipropionate area ( Face) M. MLuisDLuis 0.05% three times a day Cream as needed Simvastatin 1 by mouth every 90tabs E78.2 Gal Stover 03/27/2017 40mg night M., M.D. Tablets Metoprolol Tartrate 1 tab by mouth 90tabs I10 Gal Stover 11/16/2016 every day M., M.D. 100mg Tablets Losartan tab one by mouth 90tabs I10 Gal Stover 03/31/2014 Potassium/Hydrochloro every in the M., M.D. thiazide morning 100-25mg Tablets R60.0 I87.2 Amlodipine Besylate 1 by mouth every 90tabs I10 Gal Stover, 2011 10mg day M.D. Tablets Omeprazole 1 by mouth every 90caps K21.0 Gal Stover, 01/16/[address] day M.D. K30 History Medications Azithromycin 1 tab by mouth 10tabs Gal Stover, 03/17/2019 - 500mg every day x 10 M.D. 04/22/2019 Tablets days Amoxicillin/Clavulanat 1 tab by mouth 14tabs J02.9 Gal Stover, 2018 - e Potassium twice a day M.D. 03/16/2019 875-125mg Tablets Azithromycin 1 tab by mouth 10tabs J18.9 Gal Stover, 10/28/2018 - 500mg every day x 10 M.D. 02/06/2019 Tablets days Medications Administered in Office Medication SIG Qnty Indications Ordering Provider Date Solu-Medrol Up To 40MG Mauricio Mann, N.PLuis 10/21/2018 Injection Rocephin 250 Gal Stover M.D. 07/30/2018 Injection Rocephin 250 Mauricio Mann, N.PLuis 05/01/2018 Injection Solu-Medrol 125MG Gal Stover M.D. 12/20/2017 Injection Rocephin 250 Gal Stover M.D. 12/20/2017 Injection Admin Of Pneumovax Gal Stover M.D. 08/19/2015 Injection B12 Gal Stover M.D. 08/17/2011 Injection Immunizations CPT Code Status Date Vaccine Lot # [id number] Given 07/02/2018 Influenza,Unspecified [id number] Given 07/11/2016 Flu Vaccine 3+Yrs Old(Fluzone) [id number] Given 12/02/2015 Zoster Shingles Vaccine For Injection Q2038 Given 08/19/2015 Flu Vaccine 3+Yrs Old(Fluzone) [id number] Given 08/19/2015 Pneumovax [id number] Given 08/19/2015 Flu Vaccine [id number] Given 06/27/2014 Flu Vaccine Q2038 Given 07/31/2013 Flu Vaccine 3+Yrs Old(Fluzone) [id number] Q2038 Given 07/04/2012 Flu Vaccine 3+Yrs Old(Fluzone) [id number] 39977 Given 09/16/2009 Admin Of Influenza [id number] Given 08/08/2006 Flu Vaccine [id number] Given 07/31/2003 Pneumovax [id number] Vital Signs Date Vital Result Comment 04/23/2019 9:57am BP Systolic 118 mmHg BP Diastolic 64 mmHg Height 68 inches 5'8" Weight 157.00 lb BMI (Body Mass Index) 23.9 kg/m2 Heart Rate 50 /min Body Temperature 97.4 F Respiratory Rate 22 /min 03/31/2019 3:38pm BP Systolic 118 mmHg BP Diastolic 64 mmHg Height 68 inches 5'8" Weight 150.00 lb BMI (Body Mass Index) 22.8 kg/m2 Heart Rate 78 /min Respiratory Rate 18 /min Results Test Date Facility Test Result H/L Range Note CBC With Diff 03/10/2019 [facility] WBC 14.5 10*3/uL High (4.1-11.0) [facility] ([facility])- - RBC 4.61 10*6/uL (4.60-6.10) HGB 14.8 g/dL (13.5-18.0) HCT 44.5 % (41.0-53.0) MCV 96.7 fL High (80.0-95.0) MCH 32.1 pg High (27.0-32.0) MCHC 33.2 g/dL (32.0-36.0) RDW 14.2 % (10.5-14.5) PLT 301 10*3/uL (150-450) MPV 7.1 fL (7.1-10.7) Neut % 68.0 % (35.0-75.0) Lymph % 21.1 % (16.0-52.0) Wagoner % 9.9 % High (0.0-8.0) Eos % 0.5 % (0.0-5.0) Baso % 0.5 % (0.0-4.0) Neut # 9.9 10*3/uL High (1.8-7.7) Lymph # 3.1 10*3/uL (1.2-4.8) Wagoner # 1.4 10*3/uL High (0.0-0.8) Eos # 0.1 10*3/uL (0.0-0.5) Baso # 0.1 10*3/uL (0.0-0.2) CMP 03/10/2019 [facility] Sodium 141 mmol/L (136-145) [address] [facility] (607)- - Potassium 3.3 mmol/L Low (3.6-5.2) Chloride 104 mmol/L (100-108) Co2 24 mmol/L (22-31) Anion Gap 13 mmol/L (7-16) Urea Nitrogen 23 mg/dL (7-24) Creatinine 1.33 mg/dL High (0.80-1.30) BUN/Creat Ratio 17.3 RATIO (10.0-20.0) Glucose 77 mg/dL (70-99) Calcium 9.0 mg/dL (8.4-10.2) Total Protein 6.3 g/dL Low (6.4-8.2) Albumin 3.7 g/dL (3.2-4.5) Globulin 2.6 g/dL Low (2.7-4.3) Alb/Glob Ratio 1.4 RATIO Alkaline Phosphatase 55 U/L (45-117) Bilirubin,Total 0.7 mg/dL (0.0-1.0) Ast (Sgot) 23 U/L (11-39) Alt (SGPT) 28 U/L (12-78) GFR 52 ml/min/1.73m2 Low (>59) GFR ( Amer) >60 ml/min/1.73m2 (>59) GFR Interpretation <SEE NOTE> 1 Laboratory test 03/10/2019 [facility] Magnesium 1.7 mg/dL (1.7-2.4) finding [address] [facility] (607)- - Lipid Extended Panel 03/10/2019 [facility] Appearance CLEAR (Clear) [address] [facility] (607)- - Cholesterol @ 170 mg/dL (0-200) Triglyceride @ 137 mg/dL (30-200) HDL Cholesterol @ 71 mg/dL (>40) 2 Chol/HDL Ratio 2.4 RATIO 3 Direct LDL @ 85 mg/dL (<130) 4 VLDL (Calc) 14 mg/dL (0-30) Laboratory test 03/10/2019 [facility] 25 Hydroxy 20 ng/mL Low (31-100) 5 finding [address] [facility] Vit D @ (607)- - PSA Free And 03/10/2019 [facility] PSA Total 4.6 ng/mL High (0.0-4.0) Total [address] [facility] (607)- - PSA Free 0.9 ng/mL PSA % Free 20 % 6 Laboratory test 03/10/2019 [facility] Rheumatoid Factor <15 IU/mL (0- 15) finding [address] [facility] @ (607)- - C Reactive Protein @ 0.5 mg/dL (0.0-0.5) Esr 8 mm/h (0-20) Uric Acid 6.8 mg/dL (3.5-7.2) TSH,Ultrasensitive @ 1.940 mIU/L (0.360-4.170) 1 NORMAL KIDNEY FUNCTION OR MILD DISEASE - GFR >OR= 60 CHRONIC KIDNEY DISEASE - GFR 15 - 59 RENAL FAILURE - GFR <15 Est. GFR calculation based on the MDRD study equation, which assumes a steady state for creatinine. Est. GFR should not be used for medication dosing. 2 PER NCEP ATP III GUIDELINES: RESULTS LOWER THAN 40 MG/DL ARE SUGGESTIVE OF INCREASED RISK FOR CORONARY ARTERY DISEASE. RESULTS > OR = TO 60 MG/DL ARE CONSIDERED A NEGATIVE RISK [...] DIAGNOSIS OF CANCER. (See: BRENDA 1998; 279: 9603-2148) METHOD USED TO ASSAY BOTH FREE PSA AND TOTAL PSA IS SIEMENS Boostable LOCI CHEMILUMINESCENT IMMUNOASSAY (CALIBRATION TRACEABLE TO WHO 1ST IS, 1998, 96/668). RESULTS SHOULD NOT BE INTERPRETED ABSOLUTE EVIDENCE FOR THE PRESENCE OR ABSENCE OF MALIGNANT DISEASE. VALUES OBTAINED WITH DIFFERENT ASSAY METHODS OR KITS CANNOT BE USED INTERCHANGEABLY. Procedures Date Code Description Status 03/10/2019 30674 EKG Completed 02/07/2019 51973 Spirometry Completed 02/07/2019 11494 Tympanometry Completed 10/10/2016 10135680 Colonoscopy Completed Medical Devices Description No Information Available Encounters Type Date Location Provider Dx Diagnosis Office Visit 04/23/2019 [facility] Mauricio Mann, I10 Essential ( primary) 9:45a N.P. 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 hypertension E78.2 Mixed hyperlipidemia J44.9 Chronic obstructive pulmonary disease, unspecified I25.10 Athscl heart disease of [place] coronary artery w/o ang pctrs E55.9 Vitamin [...] compression fracture of unsp thoracic vertebra, init L89.312 Pressure ulcer of right buttock, stage 2 M54.17 Radiculopathy, lumbosacral region M54.31 Sciatica, right side M54.41 Lumbago with sciatica, right side R53.83 Other fatigue J02.9 Acute pharyngitis, unspecified I71.4 Abdominal aortic aneurysm, without rupture Z68.23 Body mass index (BMI) 23.0-23.9, adult Office Visit 03/10/2019 10:45a [place] [facility] Mauricio Mann, I10 Essential (primary) N.P. hypertension E78.2 Mixed hyperlipidemia J44.9 Chronic obstructive pulmonary disease, unspecified I25.10 Athscl heart disease of [place] coronary artery w/o ang pctrs E55.9 Vitamin D deficiency, unspecified N40.0 Benign prostatic hyperplasia without lower urinry tract symp K21.0 Gastro-esophageal reflux disease with esophagitis Z68.23 Body mass index (BMI) 23.0-23.9, adult J30.2 Other seasonal allergic rhinitis M15.9 Polyosteoarthritis, [...] compression fracture of unsp thoracic vertebra, init L89.312 Pressure ulcer of right buttock, stage 2 M54.17 Radiculopathy, lumbosacral region M54.31 Sciatica, right side M54.41 Lumbago with sciatica, right side R53.83 Other fatigue Z00.01 Encounter for general adult medical exam w abnormal findings J02.9 Acute pharyngitis, unspecified I71.4 Abdominal aortic aneurysm, without rupture Office Visit 03/07/2019 3:00p [place] [facility] Mauricio Mann, I10 Essential (primary) N.P. hypertension E78.2 Mixed hyperlipidemia J44.9 Chronic obstructive pulmonary disease, unspecified I25.10 Athscl heart disease of [place] coronary artery w/o ang pctrs E55.9 Vitamin [...] compression fracture of unsp thoracic vertebra, init L89.312 Pressure ulcer of right buttock, stage 2 M54.17 Radiculopathy, lumbosacral region M54.31 Sciatica, right side M54.41 Lumbago with sciatica, right side Office Visit 02/07/2019 3:45p [place] [facility] Mauricio Mann, I10 Essential (primary) N.P. hypertension E78.2 Mixed hyperlipidemia J44.9 Chronic obstructive pulmonary disease, unspecified I25.10 Athscl heart disease of [place] coronary artery w/o ang pctrs E55.9 Vitamin [...] thoracic vertebra, init Office Visit 10/28/2018 2:15p [place] [facility] Mauricio Mann, I10 Essential (primary) N.P. hypertension E78.2 Mixed hyperlipidemia J44.9 Chronic obstructive pulmonary disease, unspecified I25.10 Athscl heart disease of [place] coronary artery w/o ang pctrs E55.9 Vitamin [...] compression fracture of unsp thoracic vertebra, init Assessments Date Code Description Provider 04/23/2019 I10 Essential (primary) hypertension Mauricio Mann N.PLuis 04/23/2019 E78.2 Mixed hyperlipidemia Mauricio Mann N.PLuis 04/23/2019 J44.9 Chronic obstructive pulmonary disease, Mauricio Mann N.P. 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 04/23/2019 N40.0 Benign prostatic hyperplasia without lower Mauricio Mann N.PLuis urinary tract sym 04/23/2019 K21.0 Gastro-esophageal reflux disease with Romeo Richards.PLuis esophagitis 04/23/2019 J30.2 Other seasonal allergic rhinitis Mauricio Mann N.PLuis 04/23/2019 M15.9 Polyosteoarthritis, unspecified Mauricio Mann N.P. 04/23/2019 M54.5 Low back pain Mauricio Mann N.PLuis 04/23/2019 R06.02 Shortness of breath Mauricio Mann N.PLuis 04/23/2019 R60.0 Localized edema Mauricio Mann N.PLuis 04/23/2019 E83.42 Hypomagnesemia Mauricio Mann N.PLuis 04/23/2019 R97.20 Elevated prostate specific antigen [PSA] Mauricio Mann N.P. 04/23/2019 M54.6 Pain in thoracic spine Mauricio Mann N.P. 04/23/2019 I87.2 Venous insufficiency (chronic) (peripheral) Mauricio Mann N.PLuis 04/23/2019 H10.403 Unspecified chronic conjunctivitis, bilateral Mauricio Mann N.P. 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 04/23/2019 L20.9 Atopic dermatitis, unspecified Mauricio Mann N.P. 04/23/2019 F17.210 Nicotine dependence, cigarettes, Mauricio Mann N.PLuis uncomplicated 04/23/2019 J30.9 Allergic rhinitis, unspecified Mauricio Mann N.P. 04/23/2019 J18.9 Pneumonia, unspecified organism Mauricio Mann N.P. 04/23/2019 H92.03 Otalgia, bilateral Mauricio Mann N.P. 04/23/2019 H10.022 Other mucopurulent conjunctivitis, left eye Mauricio Mann , N.P. 04/23/2019 H10.45 Other chronic allergic conjunctivitis Mauricio Mann, N.P. 04/23/2019 B37.0 Candidal stomatitis Mauricio Mann, N.P. 04/23/2019 S22.000A Wedge compression fracture of unspecified Mauricio Mann , N.P. thoracic vertebra, 04/23/2019 L89.312 Pressure ulcer of right buttock, stage 2 Mauricio Mann, N.P. 04/23/2019 M54.17 Radiculopathy, lumbosacral region Mauricio Mann, N.P. 04/23/2019 M54.31 Sciatica, right side Mauricio Mann, N.P. 04/23/2019 M54.41 Lumbago with sciatica, right side Mauricio Mann, N.P. 04/23/2019 R53.83 Other fatigue Mauricio Mann, N.P. 04/23/2019 I71.4 Abdominal aortic aneurysm, without rupture Mauricio Mann N.P. 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 04/23/2019 I73.9 Peripheral vascular disease, unspecified Mauricio Mann, N.P. 04/23/2019 R07.9 Chest pain, unspecified Mauricio Mann, N.P. 04/23/2019 Z68.23 Body mass index (BMI) 23.0-23.9, adult Mauricio Mann, N.P. 03/31/2019 I10 Essential (primary) hypertension Mauricio Mann N.P. 03/31/2019 E78.2 Mixed hyperlipidemia Mauricio Mann, N.P. 03/31/2019 J44.9 Chronic obstructive pulmonary disease, Mauricio Mann, N.P. 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 coronary artery with 03/31/2019 E55.9 Vitamin D deficiency, unspecified Mauricio Mann, N.P. 03/31/2019 N40.0 Benign prostatic hyperplasia without lower Mauricio Mann, N.P. urinary tract sym 03/31/2019 K21.0 Gastro-esophageal reflux disease with Mauricio Mann N.P. esophagitis 03/31/2019 J30.2 Other seasonal allergic rhinitis Mauricio Mann N.P. 03/31/2019 M15.9 Polyosteoarthritis, unspecified Mauricio Mann, N.P. 03/31/2019 M54.5 Low back pain Mauricio Mann N.P. 03/31/2019 R06.02 Shortness of breath Mauricio Mann N.P. 03/31/2019 R60.0 Localized edema Mauricio Mann N.P. 03/31/2019 E83.42 Hypomagnesemia Mauricio Mann N.P. 03/31/2019 R97.20 Elevated prostate specific antigen [PSA] Mauricio Mann N.P. 03/31/2019 M54.6 Pain in thoracic spine Mauricio Mann N.P. 03/31/2019 I87.2 Venous insufficiency (chronic) (peripheral) Mauricio Mann N.P. 03/31/2019 H10.403 Unspecified chronic conjunctivitis, bilateral Mauricio Mann, N.P. 03/31/2019 H91.8x3 Other specified hearing loss, bilateral Mauricio Mann N.P. 03/31/2019 L20.9 Atopic dermatitis, unspecified Mauricio Mann N.P. 03/31/2019 F17.210 Nicotine dependence, cigarettes, Mauricio Mann, N.P. uncomplicated 03/31/2019 J30.9 Allergic rhinitis, unspecified Mauricio Mann, N.P. 03/31/2019 J18.9 Pneumonia, unspecified organism Mauricio Mann N.P. 03/31/2019 H92.03 Otalgia, bilateral Mauricio Mann, N.P. 03/31/2019 H10.022 Other mucopurulent conjunctivitis, left eye Mauricio Mann N.P. 03/31/2019 H10.45 Other chronic allergic conjunctivitis Mauricio Mann N.P. 03/31/2019 B37.0 Candidal stomatitis Mauricio Mann N.P. 03/31/2019 S22.000A Wedge compression fracture of unspecified Mauricio Mann N.P. thoracic vertebra, 03/31/2019 L89.312 Pressure ulcer of right buttock, stage 2 Mauricio Mann N.P. 03/31/2019 M54.17 Radiculopathy, lumbosacral region Mauricio Mann N.P. 03/31/2019 M54.31 Sciatica, right side Mauricio Mann N.P. 03/31/2019 M54.41 Lumbago with sciatica, right side Mauricio Mann N.P. 03/31/2019 R53.83 Other fatigue Mauricio Mann, N.P. 03/31/2019 I71.4 Abdominal aortic aneurysm, without rupture Mauricio Mann N.P. 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 03/31/2019 Z68.23 Body mass index (BMI) 23.0-23.9, adult Mauricio Mann N.P. 03/17/2019 I10 Essential (primary) hypertension Mauricio Mann N.P. 03/17/2019 E78.2 Mixed hyperlipidemia Mauricio Mann N.P. 03/17/2019 J44.9 Chronic obstructive pulmonary disease, Mauricio Mann N.P. 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 03/17/2019 N40.0 Benign prostatic hyperplasia without lower Mauricio Mann N.PLuis urinary tract sym 03/17/2019 K21.0 Gastro-esophageal reflux disease with Mauricio Mann N.PLuis esophagitis 03/17/2019 J30.2 Other seasonal allergic rhinitis Mauricio Mann N.P. 03/17/2019 M15.9 Polyosteoarthritis, unspecified Mauricio Mann N.P. 03/17/2019 M54.5 Low back pain Mauricio Mann N.P. 03/17/2019 R06.02 Shortness of breath Mauricio Mann N.P. 03/17/2019 R60.0 Localized edema Mauricio Mann N.P. 03/17/2019 E83.42 Hypomagnesemia Mauricio Mann N.P. 03/17/2019 R97.20 Elevated prostate specific antigen [PSA] Mauricio Mann N.P. 03/17/2019 M54.6 Pain in thoracic spine Mauricio Mann N.P. 03/17/2019 I87.2 Venous insufficiency (chronic) (peripheral) Mauricio Mann N.P. 03/17/2019 H10.403 Unspecified chronic conjunctivitis, bilateral Mauricio Mann N.P. 03/17/2019 H91.8x3 Other specified hearing loss, bilateral Mauricio Mann N.P. 03/17/2019 L20.9 Atopic dermatitis, unspecified Mauricio Mann N.P. 03/17/2019 F17.210 Nicotine dependence, cigarettes, Mauricio Mann, N.P. uncomplicated 03/17/2019 J30.9 Allergic rhinitis, unspecified Mauricio Mann, N.P. 03/17/2019 J18.9 Pneumonia, unspecified organism Mauricio Mann, N.P. 03/17/2019 H92.03 Otalgia, bilateral Mauricio Mann, N.P. 03/17/2019 H10.022 Other mucopurulent conjunctivitis, left eye Mauricio Mann , N.P. 03/17/2019 H10.45 Other chronic allergic conjunctivitis Mauricio Mann, N.P. 03/17/2019 B37.0 Candidal stomatitis Mauricio Mann, N.P. 03/17/2019 S22.000A Wedge compression fracture of unspecified Mauricio Mann , N.P. thoracic vertebra, 03/17/2019 L89.312 Pressure ulcer of right buttock, stage 2 Mauricio Mann, N.P. 03/17/2019 M54.17 Radiculopathy, lumbosacral region Mauricio Mann, N.P. 03/17/2019 M54.31 Sciatica, right side Mauricio Mann, N.P. 03/17/2019 M54.41 Lumbago with sciatica, right side Mauricio Mann, N.P. 03/17/2019 R53.83 Other fatigue Mauricio Mann, N.P. 03/17/2019 J02.9 Acute pharyngitis, unspecified Mauricio Mann, N.P. 03/17/2019 I71.4 Abdominal aortic aneurysm, without rupture Mauricio Mann N.P. 03/17/2019 Z68.23 Body mass index (BMI) 23.0-23.9, adult Mauricio Mann, N.P. 03/10/2019 I10 Essential (primary) hypertension Mauricio Mann, N.P. 03/10/2019 E78.2 Mixed hyperlipidemia Mauricio Mann, N.P. 03/10/2019 J44.9 Chronic obstructive pulmonary disease, Mauricio Mann, N.P. 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 03/10/2019 N40.0 Benign prostatic hyperplasia without lower Mauricio Mann, N.P. urinary tract sym 03/10/2019 K21.0 Gastro-esophageal reflux disease with Mauricio Mann N.PLuis esophagitis 03/10/2019 Z68.23 Body mass index (BMI) 23.0-23.9, adult Mauricio Mann N.P. 03/10/2019 J30.2 Other seasonal allergic rhinitis Mauricio Mann N.P. 03/10/2019 M15.9 Polyosteoarthritis, unspecified Mauricio Mann N.P. 03/10/2019 M54.5 Low back pain Mauricio Mann N.P. 03/10/2019 R06.02 Shortness of breath Mauricio Mann N.P. 03/10/2019 R60.0 Localized edema Mauricio Mann N.P. 03/10/2019 E83.42 Hypomagnesemia Mauricio Mann N.P. 03/10/2019 R97.20 Elevated prostate specific antigen [PSA] Mauricio Mann N.P. 03/10/2019 M54.6 Pain in thoracic spine Mauricio Mann N.P. 03/10/2019 I87.2 Venous insufficiency (chronic) (peripheral) Mauricio Mann N.P. 03/10/2019 H10.403 Unspecified chronic conjunctivitis, bilateral Mauricio Mann, N.P. 03/10/2019 H91.8x3 Other specified hearing loss, bilateral Mauricio Mann N.P. 03/10/2019 L20.9 Atopic dermatitis, unspecified Mauricio Mann N.P. 03/10/2019 F17.210 Nicotine dependence, cigarettes, Mauricio Mann N.P. uncomplicated 03/10/2019 J30.9 Allergic rhinitis, unspecified Mauricio Mann N.P. 03/10/2019 J18.9 Pneumonia, unspecified organism Mauricio Mann N.P. 03/10/2019 H92.03 Otalgia, bilateral aMuricio Mann N.P. 03/10/2019 H10.022 Other mucopurulent conjunctivitis, left eye Mauricio Mann N.P. 03/10/2019 H10.45 Other chronic allergic conjunctivitis Mauricio Mann N.P. 03/10/2019 B37.0 Candidal stomatitis Mauricio Mann N.P. 03/10/2019 S22.000A Wedge compression fracture of unspecified Mauricio Mann N.PLuis thoracic vertebra, 03/10/2019 L89.312 Pressure ulcer of right buttock, stage 2 Mauricio Mann N.PLuis 03/10/2019 M54.17 Radiculopathy, lumbosacral region Mauricio Mann N.PLuis 03/10/2019 M54.31 Sciatica, right side Mauricio Mann N.P. 03/10/2019 M54.41 Lumbago with sciatica, right side Mauricio Mann N.P. 03/10/2019 R53.83 Other fatigue Mauricio Mann N.PLuis 03/10/2019 Z00.01 Encounter for general adult medical Romeo Richards.Deborah examination with abnorma 03/10/2019 J02.9 Acute pharyngitis, unspecified Mauricio Mann N.PLuis 03/10/2019 I71.4 Abdominal aortic aneurysm, without rupture Mauricio Mann N.PLuis 03/07/2019 I10 Essential (primary) hypertension Mauricio Mann N.PLuis 03/07/2019 E78.2 Mixed hyperlipidemia Mauricio Mann N.PLuis 03/07/2019 J44.9 Chronic obstructive pulmonary disease, Mauricio Mann N.P. 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 Mann N.PLuis coronary artery with 03/07/2019 E55.9 Vitamin D deficiency, unspecified Mauricio Mann N.PLuis 03/07/2019 N40.0 Benign prostatic hyperplasia without lower Mauricio Mann N.PLuis urinary tract sym 03/07/2019 K21.0 Gastro-esophageal reflux disease with Romeo Richards.Deborah esophagitis 03/07/2019 J30.2 Other seasonal allergic rhinitis Mauricio Mann N.PLuis 03/07/2019 M15.9 Polyosteoarthritis, unspecified Mauricio Mann N.PLuis 03/07/2019 M54.5 Low back pain Mauricio Mann N.PLuis 03/07/2019 R06.02 Shortness of breath Mauricio Mann N.PLuis 03/07/2019 R60.0 Localized edema Mauricio Mann N.PLuis 03/07/2019 E83.42 Hypomagnesemia Mauricio Mann N.P. 03/07/2019 R97.20 Elevated prostate specific antigen [PSA] Mauricio Mann N.PLuis 03/07/2019 M54.6 Pain in thoracic spine Mauricio Mann N.PLuis 03/07/2019 I87.2 Venous insufficiency (chronic) (peripheral) Mauricio Mann, N.P. 03/07/2019 H10.403 Unspecified chronic conjunctivitis, bilateral Mauricio Mann, N.P. 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 03/07/2019 L20.9 Atopic dermatitis, unspecified Maurciio Mann, N.P. 03/07/2019 F17.210 Nicotine dependence, cigarettes, Mauricio Mann, N.P. uncomplicated 03/07/2019 J30.9 Allergic rhinitis, unspecified Mauricio Mann, N.P. 03/07/2019 J18.9 Pneumonia, unspecified organism Mauricio Mann, N.P. 03/07/2019 H92.03 Otalgia, bilateral Mauricio Mann, N.P. 03/07/2019 H10.022 Other mucopurulent conjunctivitis, left eye Mauricio Mann N.P. 03/07/2019 H10.45 Other chronic allergic conjunctivitis Mauricio Mann N.P. 03/07/2019 B37.0 Candidal stomatitis Mauricio Mann N.P. 03/07/2019 S22.000A Wedge compression fracture of unspecified Mauricio Mann N.PLuis thoracic vertebra, 03/07/2019 L89.312 Pressure ulcer of right buttock, stage 2 Mauricio Mann, N.P. 03/07/2019 M54.17 Radiculopathy, lumbosacral region Mauricio Mann N.P. 03/07/2019 M54.31 Sciatica, right side Mauricio Mann N.P. 03/07/2019 M54.41 Lumbago with sciatica, right side Mauricio Mann, N.P. 02/07/2019 I10 Essential (primary) hypertension Mauricio Mann, N.P. 02/07/2019 E78.2 Mixed hyperlipidemia Mauricio Mann, N.P. 02/07/2019 J44.9 Chronic obstructive pulmonary disease, Mauricio Mann, N.P. unspecified 02/07/2019 I25.10 Atherosclerotic heart disease of [place] Mauricio Mann N.PLuis coronary artery with 02/07/2019 E55.9 Vitamin D deficiency, unspecified Mauricio Mann N.P. 02/07/2019 N40.0 Benign prostatic hyperplasia without lower Mauricio Mann N.PLuis urinary tract sym 02/07/2019 K21.0 Gastro-esophageal reflux disease with Mauricio Mann N.PLuis esophagitis 02/07/2019 J30.2 Other seasonal allergic rhinitis Mauricio Mann N.P. 02/07/2019 M15.9 Polyosteoarthritis, unspecified Mauricio Mann N.P. 02/07/2019 M54.5 Low back pain Mauricio Mann N.P. 02/07/2019 R06.02 Shortness of breath Mauricio Mann N.P. 02/07/2019 R60.0 Localized edema Mauricio Mann N.P. 02/07/2019 E83.42 Hypomagnesemia Mauricio Mann N.P. 02/07/2019 R97.20 Elevated prostate specific antigen [PSA] Mauricio Mann N.P. 02/07/2019 M54.6 Pain in thoracic spine Mauricio Mann N.P. 02/07/2019 I87.2 Venous insufficiency (chronic) (peripheral) Mauricio Mann N.P. 02/07/2019 H10.403 Unspecified chronic conjunctivitis, bilateral Mauricio Mann N.P. 02/07/2019 H91.8x3 Other specified hearing loss, bilateral Mauricio Mann N.P. 02/07/2019 L20.9 Atopic dermatitis, unspecified Mauricio Mann N.P. 02/07/2019 F17.210 Nicotine dependence, cigarettes, Mauricio Mann N.PLuis uncomplicated 02/07/2019 J30.9 Allergic rhinitis, unspecified Mauricio Mann N.P. 02/07/2019 J18.9 Pneumonia, unspecified organism Mauricio Mann N.P. 02/07/2019 H92.03 Otalgia, bilateral Mauricio Mann N.P. 02/07/2019 H10.022 Other mucopurulent conjunctivitis, left eye Mauricio Mann N.P. 02/07/2019 H10.45 Other chronic allergic conjunctivitis Mauricio Mann N.P. 02/07/2019 B37.0 Candidal stomatitis Mauricio Mann N.P. 02/07/2019 S22.000A Wedge compression fracture of unspecified Mauricio Mann N.P. thoracic vertebra, 10/28/2018 I10 Essential (primary) hypertension Mauricio Mann N.P. 10/28/2018 E78.2 Mixed hyperlipidemia Mauricio Mann N.P. 10/28/2018 J44.9 Chronic obstructive pulmonary disease, Mauricio Mann N.P. unspecified 10/28/2018 I25.10 Atherosclerotic heart disease of [place] Romeo Richards.Deborah coronary artery with 10/28/2018 E55.9 Vitamin D deficiency, unspecified Mauricio Mann N.P. 10/28/2018 N40.0 Benign prostatic hyperplasia without lower Mauricio Mann N.PLuis urinary tract sym 10/28/2018 K21.0 Gastro-esophageal reflux disease with Romeo Richards.PLuis esophagitis 10/28/2018 J30.2 Other seasonal allergic rhinitis Mauricio Mann N.P. 10/28/2018 M15.9 Polyosteoarthritis, unspecified Mauricio Mann N.P. 10/28/2018 M54.5 Low back pain Mauricio Mann N.P. 10/28/2018 R06.02 Shortness of breath Mauricio Mann N.P. 10/28/2018 R60.0 Localized edema Mauricio Mann N.P. 10/28/2018 E83.42 Hypomagnesemia Mauricio Mann N.P. 10/28/2018 R97.20 Elevated prostate specific antigen [PSA] Mauricio Mann N.P. 10/28/2018 M54.6 Pain in thoracic spine Mauricio Mann N.P. 10/28/2018 I87.2 Venous insufficiency (chronic) (peripheral) Mauricio Mann N.P. 10/28/2018 H10.403 Unspecified chronic conjunctivitis, bilateral Mauricio Mann N.P. 10/28/2018 H91.8x3 Other specified hearing loss, bilateral Mauricio Mann N.P. 10/28/2018 L20.9 Atopic dermatitis, unspecified Mauricio Mann N.P. 10/28/2018 F17.210 Nicotine dependence, cigarettes, Mauricio Mann N.P. uncomplicated 10/28/2018 J30.9 Allergic rhinitis, unspecified Mauricio Mann N.P. 10/28/2018 J18.9 Pneumonia, unspecified organism Mauricio Mann N.P. 10/28/2018 H92.03 Otalgia, bilateral Mauricio Mann N.P. 10/28/2018 H10.022 Other mucopurulent conjunctivitis, left eye Mauricio Mann N.P. 10/28/2018 H10.45 Other chronic allergic conjunctivitis Mauricio Mann N.P. 10/28/2018 B37.0 Candidal stomatitis Shawn RichardsP. 10/28/2018 S22.000A Wedge compression fracture of unspecified Mauricio Mann N.P. thoracic vertebra, Plan of Treatment 04/23/2019 - Mauricio Mann N.P.I10 Essential (primary) hypertensionComments: CHECK BP TIW ( PRN)DIET AND FLUID COUNSELING LOW SODIUM DIETWT LOSSF/U LABE78.2 Mixed hyperlipidemiaComments:DIET REVIEWED CONTINUE DIETWT LOSSF/U LAB FBWJ44.9 Chronic obstructive pulmonary disease, unspecifiedComments:INCREASE PO VFPALCRRQC89.10 Atherosclerotic heart disease of [place] coronary artery withComments:F/U WITH CARDIOLOGY CONTINUE WITH RX AND F/U LABE55.9 Vitamin D deficiency, unspecifiedComments:INCREASE EXPOSURE TO SUNREVIEW OF DIETN40.0 Benign prostatic hyperplasia without lower urinary tract symComments:STABLEF/U PSAK21.0 Gastro-esophageal reflux disease with esophagitisComments:AVOID CAFFEINE, ETOH AND SPICY FOODSTUMS OR MYLANTA PRN CALL WITH PROBLEMS OR LIJQFHLQJ42.2 Other seasonal allergic rhinitisComments:INCREASE PO FLUID USE ANTIHISTAMINE PRN SECOND HAND SMOKING WNXVSTAASH46.9 Polyosteoarthritis, unspecifiedComments:EXERCISE/HEAT/MESSAGETYLENOL OR MOTRIN PRNAVOID HEAVY LIFTINGWT LOSSM54.5 Low back painComments:EXERCISE/HEAT /MESSAGEAVOID HEAVY LIFTING WT LOSSTYLENOL OR MOTRIN PRNR06.02 Shortness of breathComments:NEB OR MDI AND /OR OXYGENINCREASE PO FLUIDRESTSMOKING SKFNSOQTBB87.0 Localized edemaComments:ELEVATE LE PRNELASTIC STOCKING / DEVAN WRAP PRNF/U LABE83.42 HypomagnesemiaComments:F/U LABR97.20 Elevated prostate specific antigen [PSA] Comments:F/U WITH UROLOGY PRNF/U PSAReferral:Naveen Lorenzo MD, AhffuhgT96.6 Pain in thoracic spineComments:EXERCISE/HEAT /MESSAGEAVOID HEAVY LIFTING WT LOSSTYLENOL OR MOTRIN PRNI87.2 Venous insufficiency (chronic) (peripheral) Comments:ELEVATE LEPRESSURE STOCKINGWT LOSS NEEDED F/U LABH10.403 Unspecified chronic conjunctivitis, bilateralComments:EYE CARE INSTRUCTIONSNATURAL TEARS PRNAVOID RUBBING EYESH91.8x3 Other specified hearing loss, bilateralComments:OBSERVE FOR NOWL20.9 Atopic dermatitis, unspecifiedComments:SKIN CARE INSTRUCTIONS LOTION OR BABY OIL 2-3 APPLICATION PER DAYUSE MOISTURIZING SOAPAVOID PROLONGED WATER EXPOSUREAVOID USING HOT WATER IN CNLJTVZ41.210 Nicotine dependence, cigarettes, uncomplicatedComments:SMOKING CESSATION BGPDHBLGNWIS20.9 Allergic rhinitis, unspecifiedComments:INCREASE PO FLUID USE ANTIHISTAMINE PRN SECOND HAND SMOKING ZWQELGFWFO98.9 Pneumonia, unspecified organismComments:INCREASE PO UNVVRIOLIC42.03 Otalgia, bilateralComments:INCREASE PO FLUIDTYLENOL OR MOTRIN PRNANTIHISTAMINE AMWFLMFW19.022 Other mucopurulent conjunctivitis, left eyeComments:EYE CARETRANSMITIOM PREVENTION EXTENDED NCGZRCLBY64.45 Other chronic allergic conjunctivitisComments:EYE CARE INSTRUCTIONS EYE CARE VENOCGTNOLHDN32.0 Candidal stomatitisComments:ORAL PMSQECJI77.000A Wedge compression fracture of unspecified thoracic vertebra,L89.312 Pressure ulcer of right buttock, stage 2Comments:SKIN CARE CHANGE POSITION FREQUENTLYUSE AXZCKUMV86.17 Radiculopathy, lumbosacral regionComments:EXERCISE/HEAT /MESSAGE AVOID HEAVY LIFTING WT LOSS TYLENOL OR MOTRIN PRNM54.31 Sciatica, right sideComments:EXERCISE/HEAT / MESSAGEAVOID HEAVY LIFTING WT LOSSTYLENOL OR MOTRIN PRNM54.41 Lumbago with sciatica, right sideComments:EXERCISE/HEAT /MESSAGEAVOID HEAVY LIFTING WT LOSSTYLENOL OR MOTRIN PRNR53.83 Other fatigueComments:INCRFEASE PO FLUIDCOUNCELLING AND REASSURANCE RESTI71.4 Abdominal aortic aneurysm, without ruptureComments:CALL 911 ROBIN WITH ANY ABD OR BACK PAIN F/U CT Q 6-12 TNJEIJF24.3 Aneurysm of iliac dexmjdH57.9 Peripheral vascular disease, unspecifiedComments:SKIN CARE FOOT CARE PODIATRY PRN CARER07.9 Chest pain, elgrziudjxdZ21.23 Body mass index (BMI) 23.0-23.9, adult Functional Status Functional Condition Comment Date Status .None Active Mental Status Description No Information Available Referrals Refer to Reason for Referral Status Appt Date Naveen Lorenzo MD Created 11 [facility] [address] [place], [place] [address] [phone] Guera Hunter MD STENOSIS AND OCCLUSION OF R ILIAC ARTERY Closed 04/08/2019 (SEE CTA RUNOFF STUDY ) PT NEEDS TO SEE VASCULAR SURGEON DR HUNTER, PLEASE REVIEW RECORDS AND SCHEDULE ACCORDINGLY. THANK YOU. [address] [place] [id number] [phone] Zechariah Montes MD Sent [facility]ly [facility] [id number] [phone]
--- OUTSIDE RECORDS SUMMARY | 2019-05-13 16:23 | XMS REPORT | Continuity of Care Document ---
:1940 External Reference #:[id number] Author Name Cristiano Katelyn Care Team Providers Name Role Phone Gal Stover MD Care Team Information Youth Nutritional Monitor Unavailable Gal Stover MD Primary Care Physician Unavailable Payers Date Identification Numbers Payment Provider Subscriber Effective: 2018 Policy Number: [id number] [employer] Medicare Blade Sanchez PayID: [id number] [address] [place] [address] Expires: 2018 Policy Number: [id number] Medicare Blue o Blade Sanchez PayID: [id number] [address] [address] [place] [address] Family History Date Family Member(s) Observation Comments Father Alcoholism Father due to Unknown Causes () Mother Ovarian Cancer Social History Type Date Description Comments Sex Unknown Marital Status Occupation Retired ETOH Use Currently consumes 2 drinks alcohol Tobacco Use Start: Unknown Patient is a current 1 pack daily - for smoker, smokes every 65 yrs day Recreational Drug Use Denies Drug Use Smoking Status Reviewed: 04/16/19 Patient is a current 1 pack daily - for smoker, smokes every 65 yrs day Exercise Type/Frequency Does not exercise Allergies, Adverse Reactions, Alerts Active Allergies Reaction Severity Comments Date Sulfa Drugs 04/20/2014 Tobramycin 03/28/2019 Inactive Allergies NKDA 04/24/2014 Medications Active Medications SIG Qnty Indications Ordering Date Provider Omeprazole 1 by mouth every 90caps Unknown 20mg day Capsules DR Simvastatin 1 by mouth every Unknown 40mg night at bedtime Tablets Losartan 1 by mouth every 90tabs Unknown Potassium/Hydrochlor day othiazide 100-25mg Tablets Metoprolol Tartrate 1 by mouth twice a 180tabs Unknown day 100mg Tablets Aspirin 1 by mouth every Unknown 81mg Tablets day Amlodipine Besylate 1 by mouth every 90tabs Unknown day 10mg Tablets Combivent Respimat inhale 1 puff by Unknown mouth 4-6 times 20-100mcg/Act daily as needed Aerosol Albuterol Sulfate 1 unit dose via Unknown nebulizer every 4 (2.5mg/3ML) 0.083% hours as needed Nebulizer Prednisone Take 1/2 To 1 Unknown 20mg (One-Half To One) Tablets Tablet By Mouth Once Daily History Medications Folic Acid 1n by mouth every day Unknown - 03/19/2019 400mcg Tablets Vitamin B 12 daily Unknown - 03/18/2019 500mcg Hydrocodone-Acetaminophen take 1 by mouth every Unknown - 7.5-325mg 6 hours for severe Tablets headache. Prednisolone Acetate Unknown - 04/15/2019 1% Suspension Medications Administered in Office Medication SIG Qnty Indications Ordering Provider Date Inj, Regadenoson, 0.1 MG Hair Angel M.D., 04/24/2014 Injection VIKRAM SANTANA Inj, Regadenoson, 0.1 MG CINDY Partida 04/24/2014 Injection Technetium TC 99M Hair Angel M.D., 04/24/2014 Tetrofosmin, Per Unit Dose VIKRAM SANTANA Up To 40 Millicuries Injection Technetium TC 99M CINDY Partida 04/24/2014 Tetrofosmin, Per Unit Dose Up To 40 Millicuries Injection Vital Signs Date Vital Result Comment 04/16/2019 2:11pm Height 67 inches 5'7" Weight 152.00 lb Heart Rate 60 /min BP Systolic Sitting 130 mmHg Lue reg cuff BP Diastolic Sitting 60 mmHg Lue reg cuff BP Systolic Standing 131 mmHg Lue reg cuff BP Diastolic Standing 62 mmHg Lue reg cuff Respiratory Rate 18 /min BMI (Body Mass Index) 23.8 kg/m2 05/22/2014 4:09pm Height 67 inches 5'7" Weight 161.00 lb with shoes Heart Rate 68 /min BP Systolic 122 mmHg Ra reg cuff BP Diastolic 56 mmHg Ra reg cuff BP Systolic Sitting 130 mmHg La reg cuff BP Diastolic Sitting 60 mmHg La reg cuff BP Systolic Standing 130 mmHg LA reg cuff BP Diastolic Standing 54 mmHg LA reg cuff Respiratory Rate 16 /min BMI (Body Mass Index) 25.2 kg/m2 Procedures Date Code Description Status 04/16/2019 65131 EKG Tracing & Interpretation Completed 05/22/2014 60331 EKG Tracing & Interpretation Completed 04/24/2014 41787 Stress Test Completed 04/24/2014 30467 Myocardial Perfusion Imaging Tomographic (Spect) Multiple Completed Studies 04/24/2014 29053 Myocardial Perfusion Imaging Tomographic (Spect) Multiple Completed Studies Encounters Type Date Location Provider Dx Diagnosis Office Visit 04/16/2019 [facility] Inderjit Purdy I25.118 Athscl heart 2:00p Of Alvaro Montes M.D. disease of [place] cor art w oth ang pctrs I10 Essential (primary) hypertension R06.02 Shortness of breath Office Visit 05/22/2014 [place] Inderjit Purdy 414.01 Coronary 4:00p Cardiology Of Nelly Montes Atherosclerosis [facility] 401.1 Hypertension Benign 786.05 Shortness Of Breath Plan of Treatment Future Appointment(s):06/06/2019 10:30 am - Inderjit Montes M.D. at [facility]04/29/2019 1:00 pm - Traveling ECHO 1 at [facility]05/09/2019 11:00 am - Inderjit Montes M.D. at [facility]04/16 - Inderjit Montes M.D.I25.118 Atherosclerotic heart disease of [place] coronary artery with other forms of angina pectorisNew Orders:Stress Test, Pharmacologic Nuclear (Lexiscan), Ordered: 04/16/19Echocardiogram, Ordered: Follow up:6 qkdjtL38 Essential (primary) xqxrclvxcclmU72.02 Shortness of breath
--- NOTE | 2019-05-13 18:25 | HP ---
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 He had bilateral lower extremity vascular stent placed in [facility], where he was also found to have atrial fibrillation, thus Eliquis and Plavix was started. He started to have rectal bleeding the day before discharge there, and bleeding continued since discharge. Fresh blood coming with each bowel movement. D2 post discharge, he had penumonia therefore he received treatment including tapering schedule of steroid which haven't completed yet, antibiotics in [facility]. At the meantime, he says he was receiving blood thinner injection to prevent DVT. He recalled a remote history of possible gastric ulcer in 1997 which was scoped, also history of hemorrhoid leading to bleeding twice in the past. He is taking Prilosec for GERD based on record but he recently cut down to one tablet every 3 days. In OSH, CT abdomen and pelvis showed diverticulosis and a 3.3 cm abdominal aortic aneurysm. Hb 9.8, macrocytic, lipase 224, NT-proBNP 2852. Anticoagulation last taken on 05/13 morning. - Past Medical History Past Medical History: 1. [place] s/p stent in 1996 2. COPD, requiring 2L O2 at night 3. Peripheral artery disease, bilateral iliac stenting 04/2019 4. AFib recently diagnosed, on Eliquis 5. HTN 6. 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 Hyperlipidemia - Past Surgical History Past Surgical History: 1. recent stent insertion for bilateral lower extremity PAD - Past Family History Past Family History: No family history of bleeding disorders. - Past Social History Past Social History: Ex-smoker for 65 years, stopped on Apr 20 before surgery, 1 PPD. Social drinker. 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 - Health Maintenance Health Maintenance: Last colonoscopy in 2008: one polyps removed, pathology tubular adenoma Review of Systems - Review of Systems Constitutional: Positive: Malaise Eyes: Negative: Pain, Vision Change, Conjunctivae Inflammation, Eyelid Inflammation, Redness, Other ENT: Negative: Ear Pain, Ear Discharge, Nose Pain, Nose Discharge, Nose Congestion, Mouth Pain, Mouth Swelling, Throat Pain, Throat Swelling, Other Respiratory: Positive: Cough, Shortness of Breath Cardiovascular: Negative: Chest Pain, Palpitations, Orthopnea, Paroxysmal Noc. Dyspnea, Edema, Light Headedness, Other Gastrointestinal: Positive: Melena, Hematochezia Genitourinary: Negative: Dysuria, Frequency, Incontinence, Hematuria, Retention , Other Musculoskeletal: Negative: Neck Pain, Shoulder Pain, Arm Pain, Back Pain, Hand Pain, Leg Pain, Foot Pain, Other Skin: Negative: Rash, Lesions, Cristino, Bruising, Other Neurological: Negative: Weakness, Numbness, Incoordination, Change in Speech, Confusion, Seizures, Other - Medications/Allergies Allergies/Adverse Reactions: Allergies Allergy/AdvReac Type Severity Reaction Status Date / Time Sulfa (Sulfonamide Allergy GI Upset Verified 03/12/19 10:46 Antibiotics) Medications: Metoprolol Tartrate TAB* [Lopressor TAB*] 100 mg PO DAILY 07/08/16 [History Confirmed 05/13/19] Omeprazole CAP (NF) [Prilosec CAP* 20 MG] 20 mg PO DAILY 07/08/16 [History Confirmed 05/13/19] Simvastatin TAB(NF) [Zocor 20 MG (NF)] 40 mg PO 1700 07/08/16 [History Confirmed 05/13/19] amLODIPine TAB* [Norvasc 5 mg TAB*] 10 mg PO DAILY 07/08/16 [History Confirmed 05/13/19] Aspirin [Aspirin Adult Low Dose 81 MG] 81 mg PO DAILY 10/10/16 [History Confirmed 10/10/16] Hyzaar 100/25 (NF) 1 tab PO DAILY 10/10/16 [History Confirmed 10/10/16] Albuterol/Ipratropium RESP(NF) [Combivent Respimat (NF)] 1 aer IN DAILY [History Confirmed 05/13/19] Azithromyxin MARKELL (NF) [Z-Markell (Zithromax) 250 mg tabs #6] 2 tab PO .TODAY, THEN 1 DAILY #6 tab 01/20/18 [Rx] predniSONE [Prednisone 5 MG TAB] 10 mg PO DAILY 01/20/18 [History Confirmed ] Acetaminophen [Tylenol] 650 mg PO 05/13/19 [History] Albuterol 2.5MG/3ML (0.083%)* [Ventolin 2.5 MG/3 ML NEB.DAREK*] 2.5 mg INH Q4H [History Confirmed 05/13/19] Apixaban [Eliquis] BID 05/13/19 [History] Clopidogrel Bisulfate [Plavix] 75 mg PO DAILY 05/13/19 [History Confirmed ] Furosemide TAB* [Lasix TAB*] 40 mg PO Q4HR PRN 05/13/19 [History Confirmed 05/13] Losartan Potassium 100 mg PO DAILY 05/13/19 [History Confirmed 05/13/19] Magnesium Hydroxide [Milk of Magnesia] 400 mg PO DAILY 05/13/19 [History Confirmed 05/13/19] Metoprolol Tartrate 100 mg PO DAILY 05/13/19 [History Confirmed 05/13/19] Nicotine PATCH 14 MG/24 HR* 14 mg TRANSDERM DAILY 05/13/19 [History Confirmed ] Omeprazole 20 mg PO DAILY 05/13/19 [History Confirmed 05/13/19] Potassium Chlor TAB* [Potassium Chlor TAB 20 MEQ*] 40 meq PO ONCE 05/13/19 [ History Confirmed 05/13/19] Tamsulosin CAP* [Flomax CAP*] 0.4 mg PO DAILY 05/13/19 [History Confirmed ] Tiotropium Brom/Olodaterol [Stiolto Respimat Inh [place] (60 puff)] 1 puff INH [History] Exam Vital Signs: T 97.9 BP 107/56 HR 74 sPO2 98% under InO2 2L Exam: General: well, comfortable lying, not in acute distress, pale looking Heart: distant heart sound Lung: no wheezing, no crackles heard Abdomen: soft, non tender, BS+ Skin: multiple bruises seen on bilateral upper arms, abdomen mainly left flank down to inguinal area. Extremity: on stocking, no swelling, no calf tenderness Neurological: AOOx3 Additional Physical exam: HEENT: Normocephalic atraumatic Thyroid: non-enlarged Neuro: DTR 1+/symmetric, Motor 5/5 UE, LE Musculoskeletal: no deformity Assessment/Plan - Assessment/Plan Assessment: Mr. 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 He had a significant Hb drop from 16 (12/13/2017) to 9.8 (05/13/2019). We are not sure the source of bleeding at this moment, it could be gastric/duodenal ulcer or acute diverticulitis originally, worsening with multiple blood thinner use (Eliquis, Plavix, Heparin). Plan: Problems and plans listed as below, 1. GI bleeding - check H&H tonight and tomorrow morning - transfuse if Hb<7, or symptomatic - start iv fluid, and iv ppi - Gastro consult, plan for endoscopy tomorrow, NPO midnight - hold off Eliquis and Plavix 2. Anemia - consequence of GI bleeding with possible anemia background (macrocytic) - Hb 9.8 currently - macrocytic in OSH, folate, B12 test 3. Pneumonia recently treated - completed abx in OSH, still on pred tappering dose - CXR done in [facility], waiting imagings to be transmitted to our system - hold off prednisone since he is not in COPD exacerbation 4. newly diagnosed AFib - obtain echo report if it's done in [facility] - currently rate controlled with metoprolol 5. PVD s/p recent stent - currently no swelling of bilateral leg, circulation good - watch for lower extremity circulation - consider restart antiplt gradually as high risk of rethrombosis with recent stent 6. HTN - hold off antihypertensive for now in view of significant blood loss 7. DVT prophylaxis - high risk - but inview of acute bleeding event, hold off anticoag, compression device for now. Attestation Documenting Resident: Krystal Monreal Supervising Physician: Dung Swann Attestation: This service has been performed in part by a resident under the direction of a teaching physician.I, Dung Swann, performed the service, or was physically present during the critical, or baker portions of the service, furnished by the resident. I participated in the management of the patient.
[2019-05-13] MEDS ORDERED: NS 0.9% 1000 ML** 1,000 ML IV SCH (18:30)
--- NOTE | 2019-05-13 19:20 | CONS ---
GASTROENTEROLOGY CONSULT: DATE: 05/13 CONSULTING PHYSICIANS: Dr. Gal Stover, Dr. Dung Swann. REASON FOR CONSULTATION: Gastrointestinal bleeding, moderate, presenting to the [facility] with a hemoglobin of 9.8, hematocrit 30.7, MCV 104.4. HISTORY OF PRESENT ILLNESS: This 79-year-old man on 04/21/19 had bifemoral stents placed at [facility] and Plavix and apixaban started at that time. He began seeing some blood in the stool at that time and going to the bathroom 2 or 3 times a day. He would see small amounts of blood regularly. He began feeling weaker and short of breath. He states that in the months before the stents were placed, there were a couple of days where he saw a small amount of blood on the tissue and he was told it was most likely hemorrhoids. His most recent CBC at [facility] showed hemoglobin 16.1 in November 2017. In September 2016, he had a colonoscopy by Dr. Valadez, where 2 small tubular adenomas were removed, 1 from the cecum and the other from sigmoid at 20 cm. He had no trouble after that and his bowel habit has generally been normal without any overt bleeding. He had had several colonoscopies before then by Dr. Archer 2005 and 2008 in the record. He had an upper endoscopy in [address] Archer where he says a large ulcer was seen. He really cannot remember the circumstances. He thinks there was some bleeding but he was not transfused. He had a second upper endoscopy a few months later to confirm healing, that was also in 1997 and those records are not available. He does not have any listing for NSAIDs but has been taking prednisone, he believes for about a year. He does not know the names of any of his medicines but rather knows their relative start times and purposes. He tells me he has never been placed on iron by any of his physicians. PAST MEDICAL HISTORY: 1. Ex-smoker. 2. COPD. 3. Chronic prednisone use. 4. Peripheral vascular disease. 5. Coronary disease - coronary stents placed in 1996 and no intervention since then. He is followed by Dr. Montes. 6. Atrial fibrillation - on amiodarone. MEDICATIONS: See HPI and summary reviewed. 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 REVIEW OF SYSTEMS: No history of seizure, syncope, CVA, TIA, focal weakness, Patricia palsy, hemoptysis, recent chest pain, hepatitis, jaundice, pancreatitis. His MCV is generally around the mid 90s, with 104 at this time, no studies yet available.. Lab history does not reveal any iron studies or B12. PHYSICAL EXAM: He is an older man, in no overt distress, lying flat in bed with a normal voice and not coughing. He has no adenopathy. Breath sounds are diminished but equal. There is a little bit of distant wheezing. Heart sounds are slightly irregular and without a murmur. The abdomen is moderately obese with bilateral lower quadrant ecchymoses. He is nontender. Rectal: Deferred. Extremities show ecchymoses above the knees. Pulses are intact. Neurologic is nonfocal. LABS: At [facility], total bili 0.6, albumin 2.7, ALT 29. BUN 18, creatinine 1.2 , calcium 9.2. IMPRESSION: This 79-year-old man with recent arterial stenting intervention to both legs is now on Plavix and Eliquis. He has had some signs of bleeding in a subacute pattern over the last couple of weeks with a moderate anemia though recent baseline not known.. Bleeding may have accelerated a little bit in the last few days or some of his losses may have reached a point that was impacting on his baseline chronic obstructive pulmonary disease. At the moment he is not actively bleeding. At this time, his anticoagulation is being held briefly. Certainly, he is at risk for an upper gastrointestinal bleeding component with a history of peptic ulcer disease and being on chronic prednisone. At the moment, he is being observed and first investigation will be upper endoscopy. As he has had 3 and possibly 4 colonoscopies, including as recent as September 2016, the chances that a colonoscopy will find important diagnostic information are low. If he has had some recent bleeding from diverticulosis not evident at his recent colonoscopy, then it has stopped for the moment at least and there would be no benefit to him from a colonoscopy. [id number]/[facility] #: [id number] [facility]ITAL[facility]
[2019-05-13 19:43] LABS: ABS Basophils 0.1 10^3/ul (0-0.2); ABS Lymphocytes 1.1 10^3/ul (1.0-4.8); ABS Monocytes 0.7 10^3/ul (0-0.8); ABS Neutrophils 8.1 10^3/ul (1.5-7.7); Eosinophil % 0.3 %; Hematocrit 32 % (42-52); Hemoglobin 10.9 g/dL (14.0-18.0); Lymphocyte % 10.8 %; Mean Corpuscular HGB Conc 34 g/dL (31-36); Mean Corpuscular Hemoglobin 34 pg (27-31); Mean Corpuscular Volume 99 fL (80-94); Mean Platelet Volume 6.5 fL (7.4-10.4); Platelet Count 223 10^3/uL (150-450); Red Blood Count 3.25 10^6 /uL (4.18-5.48); Red Cell Distribution Width 16 % (10-15)
[2019-05-13] MEDS: Pantoprazole IV* 40 MG IV SCH (19:48)
[2019-05-13] MEDS ORDERED: Albuterol 2.5 MG/3 ML NEB.SOL* (0.083%) INH PRN (19:54)
[2019-05-13 20:01] LABS: Albumin 3.6 g/dL (3.2-5.2); Albumin/Globulin Ratio 1.4 (1-3); BUN/Creatinine Ratio 15.3 (8-20); Calcium 9.2 mg/dL (8.6-10.3); EGFR African American 72.1 (>60); EGFR Non-African American 59.5 (>60); Globulin 2.5 g/dL (2-4); Potassium 4.7 mmol/L (3.5-5.0); Total Bilirubin 0.6 mg/dL (0.2-1.0); Total Protein 6.1 g/dL (6.4-8.9)
[2019-05-13 21:26] LABS: Folate > 20.00 ng/mL (>3.99)
[2019-05-13] MEDS: Albuterol/Ipratropium NEB.SOL* Albuterol 2.5 MG/Ipratropium 0.5 MG 3 ML INH PRN (22:48)
[2019-05-14] MEDS: Albuterol/Ipratropium NEB.SOL* Albuterol 2.5 MG/Ipratropium 0.5 MG 3 ML INH PRN ×2 (03:54→19:43)
[2019-05-14 06:05] LABS: ABS Basophils 0.1 10^3/ul (0-0.2); ABS Eosinophils 0.1 10^3/ul (0-0.6); ABS Lymphocytes 1.8 10^3/ul (1.0-4.8); ABS Monocytes 0.9 10^3/ul (0-0.8); ABS Neutrophils 6.5 10^3/ul (1.5-7.7); Eosinophil % 1.5 %; Hematocrit 29 % (42-52); Hemoglobin 9.8 g/dL (14.0-18.0); Mean Corpuscular HGB Conc 34 g/dL (31-36); Mean Corpuscular Hemoglobin 34 pg (27-31); Mean Corpuscular Volume 98 fL (80-94); Mean Platelet Volume 6.3 fL (7.4-10.4); Platelet Count 216 10^3/uL (150-450); Red Blood Count 2.93 10^6 /uL (4.18-5.48); Red Cell Distribution Width 15 % (10-15); White Blood Count 9.3 10^3/uL (3.5-10.8)
[2019-05-14 06:14] LABS: Activated Partial Thrombo Time 33.9 seconds (26.0-38.0); INR 1.12 (0.82-1.09)
[2019-05-14 06:23] LABS: Albumin 3.2 g/dL (3.2-5.2); Albumin/Globulin Ratio 1.5 (1-3); BUN/Creatinine Ratio 15.9 (8-20); Calcium 8.7 mg/dL (8.6-10.3); EGFR African American 80.7 (>60); EGFR Non-African American 66.7 (>60); Globulin 2.2 g/dL (2-4); Indirect Bilirubin 0.6 mg/dL (0.3-1.0); Potassium 4.2 mmol/L (3.5-5.0); Total Bilirubin 0.7 mg/dL (0.2-1.0); Total Protein 5.4 g/dL (6.4-8.9)
[2019-05-14] MEDS: Tiotropium Brom/Olodaterol MDI INH SCH (07:40)
[2019-05-14] MEDS: Metoprolol Tartrate TAB* 100 MG TAB PO SCH ×2 (08:02→08:17)
[2019-05-14] MEDS: Tamsulosin CAP* 0.4 MG PO SCH ×2 (08:02→08:17)
[2019-05-14] MEDS: Pantoprazole IV* 40 MG IV SCH (08:02)
[2019-05-14] MEDS: Nicotine PATCH 14 MG/24 HR* PATCH TRANSDERM SCH (08:03)
--- NOTE | 2019-05-14 08:16 | PN ---
Subjective Date of Service: 05/14/19 Interval History: Overnight, pt had 3 beats of Vtach and short period of bradycardia after. No complains from patient. Objective Active Medications: Albuterol (Ventolin 2.5 Mg/3 Ml Neb.Mady*) 2.5 mg INH Q4H PRN PRN Reason: SHORTNESS OF BREATH Albuterol/Ipratropium (Duoneb (Albuterol 2.5 Mg/Ipratropium 0.5 Mg)) 1 neb INH Q6H PRN PRN Reason: SOB/WHEEZING Last Admin: 05/14/19 03:54 Dose: 1 neb Atorvastatin Calcium (Lipitor*) 20 mg PO 1700 [facility] Sodium Chloride (Ns 0.9% 1000 Ml) 1,000 mls @ 50 mls/hr IV .PER RATE [facility] Last Admin: 05/13/19 20:55 Dose: 50 mls/hr Metoprolol Tartrate (Lopressor Tab*) 100 mg PO DAILY [facility] Last Admin: 05/14/19 08:02 Dose: 100 mg Nicotine (Nicotine Patch 14 Mg/24 Hr*) 1 patch TRANSDERM DAILY [facility] Last Admin: 05/14/19 08:03 Dose: 1 patch Pantoprazole Sodium (Protonix Iv*) 40 mg IV Q12H [facility] Last Admin: 05/14/19 08:02 Dose: 40 mg Pharmacy Profile Note (Nicotine Patch Removal Note*) 1 note PATCH OFF 2100 [facility] Tamsulosin HCl (Flomax Cap*) 0.4 mg PO DAILY [facility] Last Admin: 05/14/19 08:02 Dose: 0.4 mg Tiotropium Annabella/Olodaterol (Stiolto Respimat Inh [place] (60 Puff)) 2 puff INH DAILY [facility] Last Admin: 05/14/19 07:40 Dose: 2 puff Vital Signs - 8 hr 05/14/19 05/14/19 05/14/19 03:00 03:55 07:00 Temperature 97.7 F 96.9 F Pulse Rate 76 81 80 Respiratory 16 18 Rate Blood Pressure 132/58 124/61 (mmHg) O2 Sat by Pulse 97 95 98 Oximetry 05/14/19 07:44 Temperature Pulse Rate 81 Respiratory 18 Rate Blood Pressure (mmHg) O2 Sat by Pulse 95 Oximetry Oxygen Devices in Use Now: None Exam: General - NAD, sitting up in bed, well groomed and in nightgown Eyes - PERRLA, EOM intact HEENT- no abnormality Lymph Nodes - No lymphadenopathy Cardiovascular - RRR no m/r/g, no JVD, no carotid bruits Lungs - Clear to auscltation, no use of acessory muscles, no crackles or wheezes. Skin - No rashes, skin warm and dry, no erythematous areas Abdomen - Normal bowel sounds, abdomen soft and nontender Extremeties - No edema, cyanosis or clubbing Musculo Skeletal - 5/5 strength, normal range of motion, no swollen or erythematous joints. Neurological Alert and oriented x 3, CN 2-12 grossly intact. Result Diagrams: 05/14/19 05:59 05/14/19 05:59 Assess/Plan/Problems-Billing Assessment: - Patient Problems (1) GI bleeding Current Visit: Yes Status: Acute Code(s): K92.2 - GASTROINTESTINAL HEMORRHAGE, UNSPECIFIED SNOMED Code(s): 94601705 Comment: Upper endoscopy today Oralize PPI iv fluid hold anticoagulation and antiplt now (2) Anemia Current Visit: Yes Status: Acute Code(s): D64.9 - ANEMIA, UNSPECIFIED SNOMED Code(s): 842803264 Comment: acute GI loss on background of anemia history on record Hb stable today (3) Peripheral arterial disease Current Visit: Yes Status: Acute Code(s): I73.9 - PERIPHERAL VASCULAR DISEASE, UNSPECIFIED SNOMED Code(s): 569585990 Comment: recent bilateral LL stent hold off plavix for now (4) HTN (hypertension) Current Visit: Yes Status: Acute Code(s): I10 - ESSENTIAL (PRIMARY) HYPERTENSION SNOMED Code(s): 49468429 Comment: continue metoprolol hold other antihypertensive (5) COPD (chronic obstructive pulmonary disease) Current Visit: Yes Status: Acute Code(s): J44.9 - CHRONIC OBSTRUCTIVE PULMONARY DISEASE, UNSPECIFIED SNOMED Code(s): 56550257 Comment: continue old med except pred (6) Atrial fibrillation Current Visit: Yes Status: Acute Code(s): I48.91 - UNSPECIFIED ATRIAL FIBRILLATION SNOMED Code(s): 99132712 Comment: hold anticoag for now TTE (7) DVT prophylaxis Current Visit: Yes Status: Acute Code(s): Z29.9 - ENCOUNTER FOR PROPHYLACTIC MEASURES, UNSPECIFIED SNOMED Code(s): 570534895 Comment: compressive device for now due to GI bleed (8) Full code status Current Visit: Yes Status: Acute Code(s): Z78.9 - OTHER SPECIFIED HEALTH STATUS SNOMED Code(s): 368301195 Status and Disposition: Inpatient Medicine Attestation Documenting Resident: Krystal Monreal Supervising Physician: Dung Swann Attestation: This service has been performed in part by a resident under the direction of a teaching physician.I, Dung Swann, performed the service, or was physically present during the critical, or baker portions of the service, furnished by the resident. I participated in the management of the patient.
[2019-05-14] MEDS ORDERED: Albuterol/Ipratropium RESP(NF) MDI (Combivent Respimat) INH SCH (09:00)
[2019-05-14] MEDS ORDERED: fentaNYL* 50 MCG/ML 2 ML VIAL (100 MCG VIAL) ONE (13:07)
[2019-05-14] MEDS ORDERED: Midazolam* 1 MG/ML 10 ML VIAL (10 MG) ONE (13:07)
--- NOTE | 2019-05-14 14:27 | PN ---
Progress Note - Progress Note Date of Service: 05/14/19 Note: BRIEF GI PROCEDURE NOTE EGD performed today. No fresh or old blood. Abnormal texture to gastric mucosa, which was biopsied. Scope advanced to distal duodenum vs proximal jejunum. No erosions, ulcers, AVMs or source of bleeding/anemia identified. Patient reporting dark black and red blood stools for several weeks. Labs demonstrate anemia, which was not present earlier this year. EGD w/o explanation for this presentation. Recommend colonoscopy tmrw to evaluate for bleeding source. May need VCE if colonoscopy is unrevealing. Continue to hold anticoagulation Can change IV PPI to Omeprazole 20 mg once daily Clear diet. Golytely (4L) prep to begin this afternoon. NPO after MN. Magnolia Martinez MD Gastroenterology
[2019-05-14] MEDS ORDERED: PEG 3000 GI LAVAGE* 1 GALLON PO ONE (14:32)
--- NOTE | 2019-05-14 15:26 | PRO ---
CC: Mauricio Mann NP * DATE OF PROCEDURE: 05/14/19 - ROOM #412 PROCEDURE: EGD with biopsy. PRIMARY CARE PROVIDER: Mauricio Mann NP INDICATION: The patient was admitted with progressive dyspnea. He was found to have a hemoglobin of 10.9 on [place] [facility] [place] Repeat hemoglobin 9.8 this morning. The patient reported several weeks of dark black stool as well as some red blood at the end of the bowel movement. He has a history of vascular disease and is currently on Eliquis and aspirin 81 mg daily. Eliquis was started for atrial fibrillation which occurred in the setting of vascular stent placement in the beginning of April. MEDICATIONS GIVEN: Midazolam 3.5 mg IV, Fentanyl 50 mcg IV. DESCRIPTION OF PROCEDURE: Full disclosure of risks was reviewed with the patient as detailed on the consent form. The patient was placed in the left lateral decubitus position and monitored with continuous pulse oximetry, capnography, interval blood pressure monitoring, and direct observation. A bite -block was placed between the patient's teeth. An adult gastroscope was then inserted into the patient's mouth and advanced down the esophagus, into the stomach, and into the distal duodenum. Findings and interventions are described below. FINDINGS: Esophagus was a normal tubular structure without rings or strictures. There was no esophagitis. GE junction appeared fairly regular. The scope was then advanced into the stomach. Stomach was examined in the forward and retroflexed views. There was a small amount of yellow liquid seen in the stomach on initial views without any fresh or old blood. The gastric body mucosa was pale with a mildly abnormal texture. There were no erosions or ulcers. No AVMs. With the assistance of epigastric abdominal pressure by nursing, the scope was then advanced into the duodenum to at least the fourth portion if not the proximal jejunum. There was a small lymphangiectasia seen in the distal duodenum. No AVMs. No erosions or ulcers. No fresh or old blood. Scope was then withdrawn back into the stomach where several small biopsies were obtained of the gastric body mucosa. Scope was then withdrawn from the patient. The patient tolerated the procedure well and was recovered in the GI recovery area. IMPRESSION: 1. Complete upper endoscopy to the distal duodenum versus proximal jejunum. 2. No fresh or old blood. No source of bleeding or anemia identified. 3. Mildly abnormal texture and pallor of the gastric body mucosa noted. This is not felt to be related to the patient's acute GI bleed presentation. FOLLOWUP: 1. Await pathology. 2. Would change from IV PPI to omeprazole 20 mg daily. 3. Would continue to hold anticoagulation for now. 4. Would give clear diet today. Start GoLYTELY prep this afternoon. Plan for colonoscopy tomorrow. Thank you very much for this consult. GI will continue to follow along. [id number]/[facility] #: [id number] [place]
[2019-05-14] MEDS: Atorvastatin* 20 MG TAB PO SCH (17:06)
[2019-05-14] MEDS ORDERED: amLODIPine TAB* 5 MG PO SCH (20:00)
[2019-05-14] MEDS: Pantoprazole TAB * 40 MG TAB PO SCH (20:47)
[2019-05-14] MEDS: Nicotine Patch Removal NOTE PATCH OFF SCH (20:47)
[2019-05-15] MEDS: Tiotropium Brom/Olodaterol MDI INH SCH (08:09)
[2019-05-15] MEDS ORDERED: fentaNYL* 50 MCG/ML 2 ML VIAL (100 MCG VIAL) ONE (08:49)
[2019-05-15] MEDS ORDERED: Midazolam* 1 MG/ML 10 ML VIAL (10 MG) ONE (08:49)
--- NOTE | 2019-05-15 09:54 | PN ---
Progress Note - Progress Note Date of Service: 05/15/19 Note: GI Colonoscopy Note see dictation for full note fair prep, some retained stool limited views No fresh or old blood. Colon to TI TI normal x10cm, no blood Cecum: large flat polyp about 3-4cm circumferentially around appendicial orifice. Biopsied. 2 moderate size vascular telangiectasias ablated with APC at 20W with good effect. Small dimunitive polyp removed in descending colon scattered diverticulosis. Rec: No clear etiology of blood loss. Ablated two telangiectasias today, hopefully helps. 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 Capsule can be considered in future, but may not be great enteroscopy candidate. Would check iron studies and have him see heme for IV iron and optimization of iron stores if low. Will need advanced endoscopy at [facility] or surgical cecectomy pending pathology of polyp as outpatient Would advance diet as tolerated follow CBC closely, check iron studies and establish with hematology. Elevated risk for anticoagulation as clear source not identified. Jesus Shi DO 05/15/19 1000
[2019-05-15] MEDS: Nicotine PATCH 14 MG/24 HR* PATCH TRANSDERM SCH (10:38)
[2019-05-15] MEDS: Pantoprazole TAB * 40 MG TAB PO SCH ×2 (10:38→19:39)
[2019-05-15] MEDS: Tamsulosin CAP* 0.4 MG PO SCH (10:38)
[2019-05-15] MEDS: Metoprolol Tartrate TAB* 100 MG TAB PO SCH (10:38)
[2019-05-15 12:53] LABS: ABS Eosinophils 0.2 10^3/ul (0-0.6); ABS Lymphocytes 1.2 10^3/ul (1.0-4.8); ABS Monocytes 0.8 10^3/ul (0-0.8); Eosinophil % 2.2 %; Hematocrit 28 % (42-52); Hemoglobin 9.5 g/dL (14.0-18.0); Lymphocyte % 17.2 %; Mean Corpuscular HGB Conc 34 g/dL (31-36); Mean Corpuscular Hemoglobin 33 pg (27-31); Mean Corpuscular Volume 99 fL (80-94); Mean Platelet Volume 6.4 fL (7.4-10.4); Platelet Count 225 10^3/uL (150-450); Red Blood Count 2.83 10^6 /uL (4.18-5.48); Red Cell Distribution Width 16 % (10-15); White Blood Count 7.1 10^3/uL (3.5-10.8)
[2019-05-15 13:13] LABS: % Iron Saturation 21 % (15-55); Iron 47 ug/dL (50-212); Total Iron Binding Capacity 221 mcg/dL (250-450); Transferrin 158 mg/dL (203-362)
[2019-05-15 13:31] LABS: Ferritin 151.4 ng/mL (24-336)
--- NOTE | 2019-05-15 14:25 | PN ---
Subjective Date of Service: 05/15/19 Interval History: Pt was seen before and after colonoscopy. No complains, no dizziness, no SOB. Objective Active Medications: Albuterol (Ventolin 2.5 Mg/3 Ml Neb.Mady*) 2.5 mg INH Q4H PRN PRN Reason: SHORTNESS OF BREATH Albuterol/Ipratropium (Duoneb (Albuterol 2.5 Mg/Ipratropium 0.5 Mg)) 1 neb INH Q6H PRN PRN Reason: SOB/WHEEZING Last Admin: 05/14/19 19:43 Dose: 1 neb Atorvastatin Calcium (Lipitor*) 20 mg PO 1700 [facility] Last Admin: 05/14/19 17:06 Dose: 20 mg Metoprolol Tartrate (Lopressor Tab*) 100 mg PO DAILY [facility] Last Admin: 05/15/19 10:38 Dose: 100 mg Nicotine (Nicotine Patch 14 Mg/24 Hr*) 1 patch TRANSDERM DAILY [facility] Last Admin: 05/15/19 10:38 Dose: 1 patch Pantoprazole Sodium (Protonix Tab*) 40 mg PO BID [facility] Last Admin: 05/15/19 10:38 Dose: 40 mg Pharmacy Profile Note (Nicotine Patch Removal Note*) 1 note PATCH OFF 2100 [facility] Last Admin: 05/14/19 20:47 Dose: 1 note Tamsulosin HCl (Flomax Cap*) 0.4 mg PO DAILY [facility] Last Admin: 05/15/19 10:38 Dose: 0.4 mg Tiotropium Ambia/Olodaterol (Stiolto Respimat Inh [place] (60 Puff)) 2 puff INH DAILY [facility] Last Admin: 05/15/19 08:09 Dose: 2 puff Vital Signs - 8 hr 05/15/19 05/15/19 05/15/19 07:45 08:00 08:40 Temperature 98.6 F Pulse Rate 82 71 Respiratory 18 18 18 Rate Blood Pressure 100/50 134/50 (mmHg) O2 Sat by Pulse 94 96 96 Oximetry 05/15/19 05/15/19 10:22 11:52 Temperature 98.4 F 97.9 F Pulse Rate 88 71 Respiratory 18 18 Rate Blood Pressure 134/50 113/56 (mmHg) O2 Sat by Pulse 95 96 Oximetry Oxygen Devices in Use Now: None Exam: General - NAD, sitting up in bed, well groomed and in nightgown Eyes - PERRLA, EOM intact HEENT- no abnormality Lymph Nodes - No lymphadenopathy Cardiovascular - RRR no m/r/g, no JVD, no carotid bruits Lungs - Clear to auscltation, no use of acessory muscles, no crackles or wheezes. Skin - No rashes, skin warm and dry, no erythematous areas Abdomen - Normal bowel sounds, abdomen soft and mild generalized tenderness Extremeties - No edema, cyanosis or clubbing Musculo Skeletal - 5/5 strength, normal range of motion, no swollen or erythematousjoints. Neurological Alert and oriented x 3, CN 2-12 grossly intact. Result Diagrams: 05/15/19 12:29 05/14/19 05:59 Assess/Plan/Problems-Billing Assessment: 79 y/o male with history of recent stent in bilateral LL due to PAD, newly diagnosed atrial fibrillation, admitted for GI bleeding leading to anemia. Colonoscopy revealed large cecum polyps and two telangiectasias s/p ablation. - Patient Problems (1) GI bleeding Current Visit: Yes Status: Acute Code(s): K92.2 - GASTROINTESTINAL HEMORRHAGE, UNSPECIFIED SNOMED Code(s): 88416873 Comment: could be small bowel AVM causing bleeding regular diet today continue PPI follow up with GI, will need capsule, also need follow up with polyp pathology, advanced endoscopy may be needed (2) Anemia Current Visit: Yes Status: Acute Code(s): D64.9 - ANEMIA, UNSPECIFIED SNOMED Code(s): 706563586 Comment: acute GI loss on background of anemia history on record check iron study (3) Peripheral arterial disease Current Visit: Yes Status: Acute Code(s): I73.9 - PERIPHERAL VASCULAR DISEASE, UNSPECIFIED SNOMED Code(s): 577846985 Comment: recent bilateral LL stent hold off plavix for now, if hb stable, restart (4) HTN (hypertension) Current Visit: Yes Status: Acute Code(s): I10 - ESSENTIAL (PRIMARY) HYPERTENSION SNOMED Code(s): 41735130 Comment: continue metoprolol hold other antihypertensive (5) COPD (chronic obstructive pulmonary disease) Current Visit: Yes Status: Acute Code(s): J44.9 - CHRONIC OBSTRUCTIVE PULMONARY DISEASE, UNSPECIFIED SNOMED Code(s): 22864138 Comment: continue old med except pred (6) Atrial fibrillation Current Visit: Yes Status: Acute Code(s): I48.91 - UNSPECIFIED ATRIAL FIBRILLATION SNOMED Code(s): 17660912 Comment: hold anticoag for now TTE (7) DVT prophylaxis Current Visit: Yes Status: Acute Code(s): Z29.9 - ENCOUNTER FOR PROPHYLACTIC MEASURES, UNSPECIFIED SNOMED Code(s): 039509212 Comment: compressive device for now due to GI bleed (8) Full code status Current Visit: Yes Status: Acute Code(s): Z78.9 - OTHER SPECIFIED HEALTH STATUS SNOMED Code(s): 719897033 Status and Disposition: Inpatient Medicine Attestation Documenting Resident: Krystal Monreal Supervising Physician: Dung Swann Attending/Supervising Physician Comment: HPI: no new complaints. Tolerating food. No melena. Attestation: This service has been performed in part by a resident under the direction of a teaching physician.I, Dung Swann, performed the service, or was physically present during the critical, or baker portions of the service, furnished by the resident. I participated in the management of the patient.
--- NOTE | 2019-05-15 17:56 | ECHO ---
*[facility]* [place] [address] Fax #: [phone] Transthoracic Echocardiogram Patient: Blade Sanchez : 1940 Study Date: 05/15/2019 Age: 79 Gender: M HR: 63 bpm Height: 67 in /170.2 cm BSA: 1.82 m^2 Weight: 156.7 lb /71.2 kg BMI: 24.6 kg/m^2 *Line Cook: * Isadora Villela RDCS RN *Referring Physician: * Krystal Monreal *Reading Physician: * Kymberly Quintero MD Indications: Atrial Fibrillation. History: Coronary artery disease with HI and PCI in 1996. PVD. Chronic obstructive pulmonary disease. Risk factors: Former tobacco use. Hypertension. Dyslipidemia. Conclusions Summary: - Left ventricle: The cavity size is normal. The septal thickness is moderately increased. Systolic function is at the lower limits of normal. The estimated ejection fraction is 50-55%. Wall motion is normal; there are no regional wall motion abnormalities. - Mitral valve: There is mild regurgitation. - Aortic valve: The leaflets are mildly thickened. The leaflet excursion appears mildly reduced by 2D imaging. An left ventricular outflow tract dimension could not be obtained, but the dimensionless index of 0.52 suggests mild aortic stenosis. - Tricuspid valve: There is trace regurgitation. - No previous echocardiogram available. Study data: Transthoracic echocardiogram. Procedure: Transthoracic echocardiography was performed. The study was technically limited due to poor parasternal imaging, COPD, and smoking history. The apical and subcostal views are adequate. Complete 2D, spectral Doppler, and color flow Doppler. Location: Bedside. Patient status: Inpatient. Patient room number: 412-02. Rhythm: Normal sinus rhythm. Findings Left ventricle: The cavity size is normal. The septal thickness is moderately increased. Systolic function is at the lower limits of normal. The estimated ejection fraction is 50-55%. Wall motion is normal; there are no regional wall motion abnormalities. There is no consistent Doppler evidence of clinically significant diastolic dysfunction. Right ventricle: The cavity size is normal. Wall thickness is mildly to moderately increased. Systolic function is normal. Left atrium: The atrium is normal in size. Right atrium: The atrium is normal in size. Mitral valve: The mitral valve annulus appears mildly calcified. The leaflets are mildly thickened. There is no evidence of stenosis. There is mild regurgitation. Aortic valve: Not well visualized. The leaflets are mildly thickened. The leaflet excursion appears mildly reduced by 2D imaging. An left ventricular outflow tract dimension could not be obtained, but the dimensionless index of 0.52 suggests mild aortic stenosis. There is no regurgitation. Tricuspid valve: Not well visualized. There is trace regurgitation. Pulmonic valve: Not well visualized. There is trace regurgitation. Aorta: Aortic root: The aortic root is poorly visualized. Ascending aorta: The ascending aorta is not visualized. Aortic arch: The aortic arch is not visualized. Pericardium: There is no pericardial effusion. Pulmonary arteries: Not well visualized. Systolic pressure can not be accurately estimated. Systemic veins: Inferior vena cava: The vessel is normal in size. There is (>= 50%) respiratory change in the IVC dimension. Measurements Left ventricle Value Ref Right atrium Value Ref NALLELY, LAX 4.3 cm 4.2 - 5.8 ML dim, ES, A4C 4.2 cm 2.6 - 4.4 E', lat joao, TDI (L) 6.9 cm/sec >=10.0 SI dim, ES, A4C 4.2 cm 3.4 - 5.3 E/e', lat joao, 11 TDI Aortic valve Value Ref E', med joao, TDI (L) 4.7 cm/sec >=7.0 Peak v, S 1.53 m/sec --- ------ E/e', med joao, 16 VTI, S 34.7 cm ------ --- TDI Mean grad, S 5.0 mm Hg --------- E', avg, TDI 5.8 cm/sec Peak grad, S 9.0 mm Hg ------ --- E/e', avg, TDI 13 <=14 LVOT/AV, VTI ratio 0.52 --- ------ LVOT Value Ref Mitral valve Value Ref Peak priya, S 0.79 m/sec Peak E 0.75 m/sec --------- VTI, S 17.9 cm Peak A 0.92 m/sec --------- Mean grad, S 1 mm Hg Decel time 278 ms --------- Peak grad, D 2.2 mm Hg --------- Ventricular septum Value Ref Peak E/A ratio 0.8 --------- IVS, ED (H) 1.4 cm 0.6 - 1.0 Pulmonic valve Value Ref Right ventricle Value Ref Peak v, S 0.54 m/sec --------- NALLELY minor ax, 2.6 cm 1.9 - 3.5 Peak grad, S 1.0 mm Hg --------- A4C mid Inferior vena cava Value Ref Left atrium Value Ref Diam 2.0 cm --------- AP dim, ES (H) 4.20 cm 3.00 - 4.00 ML dim, A4C 4.2 cm SI dim, A4C 4.9 cm Vol/bsa, ES, 1-p 30 ml/m^2 12 - 37 A4C Vol/bsa, ES, A/L 30 ml/m^2 16 - 34 Legend: (L) and (H) roddy values outside specified reference range. Prepared and electronically signed by Kymberly Quintero MD 05/15/2019 17:56
[2019-05-15] MEDS: Atorvastatin* 20 MG TAB PO SCH (18:36)
[2019-05-15] MEDS: Nicotine Patch Removal NOTE PATCH OFF SCH (19:43)
--- NOTE | 2019-05-15 20:00 | PRO ---
CC: Mauricio Mann NP * COLONOSCOPY REPORT: DATE OF PROCEDURE: 05/15/19 - ROOM #412 PRIMARY CARE PHYSICIAN: Mauricio Mann NP. INDICATION FOR PROCEDURE: Melena. PROCEDURE PERFORMED: Complete colonoscopy to the terminal ileum with biopsy polypectomy and biopsies and APC of 2 vascular lesions at 20 [place]. MEDICATIONS GIVEN: Include 4 mg IV midazolam, 25 mcg IV fentanyl. DESCRIPTION OF PROCEDURE: After the colonoscopy procedure including the risks, benefits, and alternatives with the risks not limited to perforation, surgery, missed lesions, and/or were explained to the patient, written informed consent was obtained. IV medication was given and a rectal exam was performed. The rectal exam was unremarkable. The adult Olympus colonoscope was then inserted into the patient's rectum and advanced very carefully through the entirety of the colon into the cecal base. The cecal base was carefully inspected and revealed a large flat polyp that was periappendiceal about three- quarters of the circumference of the appendiceal opening, roughly 3 to 4 cm and narrow, circumferential. This was biopsied extensively, not removed due to size and location. There were 2 telangiectasias in the cecum that I ablated with APC at 20 london with good effect. There was no bleeding before or after the procedure. The preparation was fair, not sufficient for full polyp detection. The terminal ileum was identified and intubated x10 cm and normal. There were no vascular lesions identified. There was no fresh or old blood. The scope was then returned to the cecum. No fresh or old blood was seen on the entire exam. Over the next 8 minutes, the scope was carefully withdrawn, inspecting the mucosa. In the descending colon, a small polyp was removed with biopsy polypectomy in entirety. On further withdrawal to the rectum, direct views were normal. On retroflexion, the views were normal as well. The scope was then removed from the patient. He tolerated the procedure well. He returned to the recovery room in stable condition. IMPRESSION: 1. Complete colonoscopy to the terminal ileum. 2. APC of 2 telangiectasias, nonbleeding, in the cecum. 3. Large flat polyp, periappendiceal as above, not removed, but biopsied. 4. Biopsy polypectomy of small diminutive polyp in the descending colon. 5. Fair prep, not sufficient for full polyp detection. RECOMMENDATIONS: He likely has a small-bowel bleeding source as the etiology of his anemia. The telangiectasias may have contributed. I did ablate them with APC with good effect. I suspect he likely has further AVMs or telangiectasias within the small-bowel. He may not be a great enteroscopy candidate, but can consider capsule endoscopy pending clinical condition. I would optimize his IV iron stores and have him follow up with hematology to establish IV iron to help boost his stores. In addition, given the large flat polyp, we will either refer him for EMR at the [facility] or surgical cecectomy depending on pathology and patient wishes. This polyp is not the source of his anemia. He is at higher risk for anticoagulation as I do not have a clear etiology for his anemia. Given the risks and benefits, it is reasonable to likely put the patient back on his Plavix given the benefits far outweigh the risk of him rebleeding. The Eliquis is a more difficult story and I would discuss with cardiology risk stratification for that. He has an elevated risk from my point of view for bleeding. [id number]/[facility] #: [id number] [place]
[2019-05-15] MEDS: Albuterol/Ipratropium NEB.SOL* Albuterol 2.5 MG/Ipratropium 0.5 MG 3 ML INH PRN (21:05)
[2019-05-16] MEDS: Tiotropium Brom/Olodaterol MDI INH SCH (07:18)
[2019-05-16] MEDS: Albuterol/Ipratropium NEB.SOL* Albuterol 2.5 MG/Ipratropium 0.5 MG 3 ML INH PRN (07:18)
[2019-05-16] MEDS: Tamsulosin CAP* 0.4 MG PO SCH (08:27)
[2019-05-16] MEDS: Nicotine PATCH 14 MG/24 HR* PATCH TRANSDERM SCH (08:27)
[2019-05-16] MEDS: Metoprolol Tartrate TAB* 100 MG TAB PO SCH (08:27)
[2019-05-16] MEDS: Pantoprazole TAB * 40 MG TAB PO SCH (08:27)
[2019-05-16] MEDS ORDERED: Ferrous Gluconate TAB* 324 MG TAB PO SCH (09:00)
[2019-05-16] MEDS ORDERED: Clopidogrel TAB* 75 MG PO SCH (09:00)
[2019-05-16 15:52] VITALS: BP 127/50
[2019-05-16] MEDS: Atorvastatin* 20 MG TAB PO SCH (17:56)
[2019-05-16] MEDS ORDERED: guaiFENesin ER TAB 600 MG PO SCH (21:00)
--- NOTE | 2019-05-17 23:48 | DS ---
CC: Dr. Shi; Mauricio Mann NP. DISCHARGE SUMMARY: DATE OF ADMISSION: 05/13/19 DATE OF DISCHARGE: 05/16/19 PRIMARY DIAGNOSIS: Lower gastrointestinal hemorrhage due to apparent telangiectasias in the cecum. SECONDARY DIAGNOSES: 1. Peripheral vascular disease with recent arterial stent placement to bilateral lower extremities, 04/21/19, at [facility]. 2. Atrial fibrillation. 3. Chronic obstructive pulmonary disease. 4. Abdominal aortic aneurysm extending to the renal arteries. 5. Hypertension. 6. Myocardial infarction, status post stenting in 1986. 7. Iron-deficiency anemia. 8. Hyperlipidemia. MEDICATIONS ON DISCHARGE: 1. Acetaminophen as needed. 2. Albuterol nebulizer q.4 hours as needed. 3. Albuterol/ipratropium MDI, 1 puff inhaled twice a day. 4. Amlodipine 10 mg p.o. daily. 5. Clopidogrel 75 mg p.o. daily. 6. Losartan 100 mg p.o. daily. 7. Milk of magnesia as needed. 8. Metoprolol tartrate 100 mg p.o. b.i.d. 9. Nicotine patch 14 mg topically daily. 10. Omeprazole 20 mg p.o. daily. 11. Simvastatin 40 mg p.o. q.h.s. 12. Tamsulosin 0.4 mg p.o. daily. 13. Tiotropium/olodaterol 1 inhalation b.i.d. 14. Ferrous gluconate 325 mg p.o. daily. 15. Mucinex 1 tab p.o. b.i.d. HOSPITAL COURSE: A 79-year-old man, recently started on Plavix for lower extremity arterial stent placement and recently started on Eliquis for newly diagnosed atrial fibrillation, was admitted to the hospital with calvin lower GI bleeding. The patient also had recent pneumonia and [place] [facility] [place] prior to this hospital stay. The patient's initial hemoglobin was 10.9, which fell to 9.5 on serial reassessments. He did not require transfusions. His INR was 1.12 and PTT was 32.9. His initial lactic acid was 2.1 and fell to 0.8 on recheck. His vitamin B12 was 408. His TIBC was 221, iron level was 47, transferrin 158, ferritin 151, consistent with iron- deficiency anemia. The patient had a consultation with Dr. Parson of Gastroenterology, who suspected diverticular bleeding, less likely polyp or neoplastic bleeding. The patient had an upper endoscopy with Dr. Martinez on 05/14/19, which showed no ulcers, no source of GI bleed. The patient had a colonoscopy on 05/15/[address] Shi that showed 2 cecal AVMs, which were addressed with APC at 20 london, with good effect. There were also large flat polyps that were biopsied and a small polyp in the descending colon that was removed. Clearly, the patient has lower GI bleed related to telangiectasias or AVMs. This was exacerbated by recent initiation of Plavix and Eliquis. It was decided that the Plavix would be restarted as developing clots in his newly placed stent is more high risk and more proximate a problem than Afib. The risk of stroke from Afib is probably in the range of 5% or 6% per year. The patient was reinitiated on Plavix without any calvin bleeding. The patient could be reinitiated on Eliquis in 2 or 3 weeks at his primary care office or cardiology if necessary, with close monitoring of his CBC and his symptoms. The patient's recent pneumonia seems to have been resolved. He was breathing normally, ambulatory on discharge, and was discharged to home. DISPOSITION: To home. STATUS: Inpatient. CONDITION: Stable. DIET: Soft diet, low fat and low salt. ACTIVITY: As tolerated. FOLLOWUP: With Mauricio Mann NP, primary care, in 1 to 3 days, and follow up with Dr. Shi in 1 to 2 weeks. TIME SPENT: I spent more than 40 minutes with the resident and coordinating care with the family and primary care on the day of discharge. [id number]/[facility] #: [id number] [facility] HOSPITALFlora
== END 2019-05-16 18:20 | disposition home or self-care (01) | DRG 378 ==
LOC: MED 16:12
PROVIDERS: ADMIT Internal Medicine; ATTEND Internal Medicine
PROC: 0DB68ZX Excision of Stomach, Via Natural or Artificial Opening Endoscopic, Diagnostic (ICD-10-PCS; 2019-05-14)
PROC: 0DBH8ZX Excision of Cecum, Via Natural or Artificial Opening Endoscopic, Diagnostic (ICD-10-PCS; principal; 2019-05-15)
PROC: 0DBM8ZX Excision of Descending Colon, Via Natural or Artificial Opening Endoscopic, Diagnostic (ICD-10-PCS; 2019-05-15)
PROC: 0W3P8ZZ Control Bleeding in Gastrointestinal Tract, Via Natural or Artificial Opening Endoscopic (ICD-10-PCS; 2019-05-15)
DX: K55.21 Angiodysplasia of colon with hemorrhage (principal); I47.2 Ventricular tachycardia; I78.1 Nevus, non-neoplastic; J44.9 Chronic obstructive pulmonary disease, unspecified; I73.9 Peripheral vascular disease, unspecified; I25.10 Atherosclerotic heart disease of native coronary artery without angina pectoris; I48.91 Unspecified atrial fibrillation; K63.5 Polyp of colon; I71.4 Abdominal aortic aneurysm, without rupture; D50.9 Iron deficiency anemia, unspecified; R00.1 Bradycardia, unspecified; I10 Essential (primary) hypertension; K21.9 Gastro-esophageal reflux disease without esophagitis; K64.9 Unspecified hemorrhoids; E78.5 Hyperlipidemia, unspecified; Z72.89 Other problems related to lifestyle; Z87.891 Personal history of nicotine dependence; Z88.2 Allergy status to sulfonamides; Z87.01 Personal history of pneumonia (recurrent); I25.2 Old myocardial infarction; Z95.5 Presence of coronary angioplasty implant and graft; Z95.820 Peripheral vascular angioplasty status with implants and grafts; Z79.02 Long term (current) use of antithrombotics/antiplatelets
CPT/HCPCS: 36415; 71045; 80048; 80053; 80076; 82607; 82728; 82746; 83540; 83550; 83605; 83690; 83880; 85025; 85610; 85730; 88305; 93005; 93306; 94640; 99156; 99157; A9270-GY; G8978-GP-CJ; G8979-GP-CI; J2250; J3010; J3535

== ENCOUNTER 2019-08-06 13:56 | Inpatient (IN) | payer MEDICARE ==
[2019-08-06] MEDS ORDERED: NS 0.9% 1000 ML** 1,000 ML IV ONE ×2 (15:10→16:53)
[2019-08-06] MEDS ORDERED: Acetaminophen TAB* 325 MG PO ONE (15:10)
--- NOTE | 2019-08-06 15:14 | ED ---
Shortness of Breath - HPI Summary HPI Summary: Patient is a 79 y/o M presenting to the ED for a chief complaint of cough with bloody sputum. Patient is present with his daughter and son-in-law. Patient admits SOB, chills, back pain radiating from the back to the left flank, and a general feeling of being unwell. Patient denies fever. PMHx is significant for COPD, HTN, and pneumonia which he has had 4 times this year. He is currently taking Amoxicillin and Plavix. PSHx is significant for stent placement at [place]. 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 Michelle for a polyp evaluation. Allergies noted. Medications reviewed. - History of Current Complaint Chief Complaint: EDShortnessOfBreath Time Seen by Provider: 08/06/19 14:48 Hx Obtained From: Patient Onset/Duration: Sudden Onset, Still Present Current Severity: Mild Aggravating Factors: Nothing Alleviating Factors: Nothing Associated Signs & Symptoms: Cough (Bloody Sputum) - Allergy/Home Medications Allergies/Adverse Reactions: Allergies Allergy/AdvReac Type Severity Reaction Status Date / Time Sulfa (Sulfonamide Allergy GI Upset Verified 03/12/19 10:46 Antibiotics) Home Medications: Home Medications Amoxicillin/Clavulanate TAB* [Augmentin TAB 875*] 875 mg PO BID 08/06/19 [ History Confirmed 08/06/19] Clopidogrel TAB* [Plavix TAB*] 75 mg PO DAILY 08/06/19 [History Confirmed ] Hydrocodone/Acetaminophen [[place] 7.5-325 Tablet] 1 tab PO TID PRN 08/06/19 [ History Confirmed 08/06/19] Ipratropium/Albuterol Sulfate [Iprat-Albut 0.5-3(2.5) mg/3 ml] 3 ml INH Q4HR [History Confirmed 08/06/19] Metoprolol Tartrate TAB* [Lopressor TAB*] 100 mg PO DAILY 08/06/19 [History Confirmed 08/06/19] Omeprazole CAP (NF) [Prilosec CAP* 20 MG] 20 mg PO DAILY 08/06/19 [History Confirmed 08/06/19] predniSONE TAB* [Deltasone 20 MG TAB*] 10 mg PO DAILY 08/06/19 [History Confirmed 08/06/19] PMH/Surg Hx/FS Hx/Imm Hx Previously Healthy: Yes Endocrine/Hematology History: Denies: Hx Diabetes, Hx Thyroid Disease Cardiovascular History: Reports: Hx Hypertension - ON MEDS, Hx Peripheral Vascular Disease Denies: Hx Hypercholesterolemia, Hx Pacemaker/ICD Respiratory History: Reports: Hx Chronic Obstructive Pulmonary Disease (COPD) - ON MEDS, Hx Pneumonia, Other Respiratory Problems/Disorders - RECENT PNEUMONIA Denies: Hx Asthma GI History: Reports: Hx Gastroesophageal Reflux Disease, Hx Gastrointestinal Bleed Denies: Hx Ulcer History: Denies: Hx Renal Disease Musculoskeletal History: Reports: Hx Arthritis, Hx Back Problems Sensory History: Reports: Hx Contacts or Glasses - glasses at bedside Denies: Hx Legally Blind, Hx Deafness, Hx Hearing Aid Opthamlomology History: Reports: Hx Contacts or Glasses - glasses at bedside Denies: Hx Legally Blind EENT History: Denies: Hx Deafness Psychiatric History: Denies: Hx Panic Disorder - Surgical History Surgical History: Yes Surgery Procedure, Year, and Place: CARDIAC STENT 1996. LEFT SHOULDER SURGERY 1997. ULCERS 1997 Infectious Disease History: No Infectious Disease History: Denies: Hx Clostridium Difficile, Hx Hepatitis, Hx Human Immunodeficiency Virus (HIV), Hx of Known/Suspected MRSA, Hx Shingles, Hx Tuberculosis, Hx Known/ Suspected VRE, Hx Known/Suspected VRSA, History Other Infectious Disease, Traveled Outside the [place] in Last 30 Days - Family History Known Family History: Positive: Cardiac Disease - Social History Occupation: Retired Lives: With Family Alcohol Use: Rare Hx Substance Use: No Substance Use Type: Reports: None Hx Tobacco Use: Yes Smoking Status (MU): Never Smoked Tobacco Type: Cigarettes Amount Used/How Often: 1PPD Length of Time of Smoking/Using Tobacco: 50YRS Have You Smoked in the Last Year: Yes Review of Systems Positive: Chills. Negative: Fever Positive: Shortness Of Breath Positive: Myalgia - Back pain radiates to left flank All Other Systems Reviewed And Are Negative: Yes Physical Exam - Summary Physical Exam Summary: Constitutional: Well-developed, Well-nourished, Alert. (-) Distressed Skin: Warm, Dry HENT: Normocephalic; Atraumatic Eyes: Conjunctiva normal Neck: Musculoskeletal ROM normal neck. (-) JVD, (-) Stridor, (-) Tracheal deviation Cardio: Rhythm regular, rate normal, Heart sounds normal; Intact distal pulses; Radial pulses are 2+ and symmetric. (-) Murmur Pulmonary/Chest wall: Effort normal. (-) Respiratory distress, (-) Wheezes, (-) Rales Abd: Soft, (-) tenderness, (-) Distension, (-) Guarding, (-) Rebound Musculoskeletal: (-) Edema Lymph: (-) Cervical adenopathy Neuro: Alert, Oriented x3 Psych: Mood and affect Normal Triage Information Reviewed: Yes Vital Signs On Initial Exam: Initial Vitals Temp Pulse Resp BP Pulse Ox 99.5 F 123 18 103/69 95 08/06/19 14:04 08/06/19 14:04 08/06/19 14:04 08/06/19 14:04 08/06/19 14:04 Vital Signs Reviewed: Yes Procedures - Sedation Patient Received Moderate/Deep Sedation with Procedure: No Diagnostics - Vital Signs Vital Signs Temp Pulse Resp BP Pulse Ox 08/06/19 15:00 129 92 08/06/19 14:59 124 90 08/06/19 14:04 99.5 F 123 18 103/69 95 - Laboratory Result Diagrams: 08/06/19 19:35 08/06/19 19:35 Lab Statement: Any lab studies that have been ordered have been reviewed, and results considered in the medical decision making process. - Radiology Chest X-ray Radiology Interpretation Completed By: Radiologist Summary of Radiographic Findings: Chest X-ray IMPRESSION: HYPERINFLATION WITH BIBASILAR PLEURAL-PARENCHYMAL SCARRING, STABLE. NO ACTIVE CARDIOPULMONARY DISEASE. Reviewed by Dr. Copeland. - CT Chest/Thorax CTA CT Interpretation Completed By: Radiologist Summary of CT Findings: Chest/Thorax CTA IMPRERSSION: 1. Pulmonary emboli visualized in the right middle and left lower lobes. 2. Slightly elevated RV to LV ratio suggests possible right heart failure. 3. Atelectasis versus pneumonitis at the left lung base. Mild atelectasis at the posterior right lung base. 4. Loculated left pleural effusion. 5. Thoracic compression deformities , as above. Reviewed by Dr. Copeland. - EKG 15:04 Cardiac Rate: Other Rate - 130 BPM EKG Rhythm: Atrial Fibrillation ST Segment: Normal Ectopy: None Summary of EKG Findings: EKG at 15:04 shows 130 BPM with atrial fibrillation, RVR, no STEMI. Reviewed and interpreted by Dr. Copeland. Course/Dx - Course Course Of Treatment: Patient is here with small volume hemoptysis, shortness breath, and cough the setting of suspected pneumonia. Patient's had recurrent pneumonia throughout this year multiple times including multiple hospital admissions. Patient was started on by mouth antibiotics recently for suspected pneumonia. Upon arrival, patient was in nature fibrillation RVR and needed 2 L of oxygen to maintain his oxygen saturation. Patient's blood pressure was normal and he was afebrile. Patient had a sepsis workup performed which showed a leukocytosis of 21. Patient was given empiric pneumonia antibiotics which included cefepime and levofloxacin. Patient cultures sent. Patient was given a 30 cc bronchogram bolus of IV fluids. Patient had a negative chest x-ray so a CTA was performed to evaluate for possible underlying PE which was positive for 2 pulmonary embolisms. Patient had right heart strain and a troponin of 0.14. Patient had a clinically submassive PE and was started on a heparin drip. Patient was admitted to the ICU. - Diagnoses Provider Diagnoses: Pulmonary embolism, Tachycardia, Atrial fibrillation, Sepsis, Pneumonia, Leukocytosis, Elevated troponin - Physician Notifications Discussed Care of Patient With: Mal Gan - At 20:20, Dr. Colon admits the patient to [facility] with a diagnosis of sub-massive PE, tachycardia, atrial fibrillation, sepsis, pneumonia, leukocytosis, and elevated troponin. Time Discussed With Above Provider: 20:20 Instructed by Provider To: Admit As Inpatient - Critical Care Time Critical Care Time: 30-74 min - 60 minutes Discharge ED - Sign-Out/Discharge Documenting (check all that apply): Patient Departure - Admit - Discharge Plan Condition: Stable Disposition: ADMITTED TO [facility] - Billing Disposition and Condition Condition: STABLE Disposition: Admitted to [facility] - Attestation Statements Document Initiated by Scribe: Yes Documenting Scribe: Zonia Mills Provider For Whom Angelica is Documenting (Include Credential): Daniel Copeland MD Scribe Attestation: Zonia Lee, scribed for Danile Copeland MD on 08/06/19 at 2133. Scribe Documentation Reviewed: Yes Provider Attestation: The documentation as recorded by the Zonia rudolph accurately reflects the service I personally performed and the decisions made by me, Daniel Copeland MD Status of Scribe Document: Viewed
[2019-08-06 16:22] LABS: Hematocrit 37 % (42-52); Hemoglobin 11.9 g/dL (14.0-18.0); Mean Corpuscular HGB Conc 33 g/dL (31-36); Mean Corpuscular Hemoglobin 27 pg (27-31); Mean Corpuscular Volume 84 fL (80-94); Platelet Count 231 10^3/uL (150-450); Red Blood Count 4.35 10^6 /uL (4.18-5.48); Red Cell Distribution Width 19 % (10-15); White Blood Count 21.3 10^3/uL (3.5-10.8)
[2019-08-06 16:29] LABS: INR 1.2 (0.82-1.09)
[2019-08-06 16:43] LABS: Albumin 3.1 g/dL (3.2-5.2); BUN/Creatinine Ratio 20.4 (8-20); Calcium 9.1 mg/dL (8.6-10.3); EGFR African American 84.3 (>60); EGFR Non-African American 69.7 (>60); Globulin 3.1 g/dL (2-4); Potassium 3.9 mmol/L (3.5-5.0); Total Bilirubin 0.9 mg/dL (0.2-1.0); Total Protein 6.2 g/dL (6.4-8.9)
[2019-08-06 16:44] LABS: Troponin I 0.14 ng/mL (<0.03)
[2019-08-06 16:48] LABS: ABS Lymphocytes 0.9 10^3/ul (1.0-4.8); ABS Neutrophils 18.4 10^3/ul (1.5-7.7); Lymphocyte % 4.2 %
[2019-08-06] MEDS ORDERED: Cefepime(*) 2 GM in NS 0.9% 50 ML* 50 ML IVPB ONE (16:54)
[2019-08-06] MEDS ORDERED: Levofloxacin 750 MG IVPREMIX(* 750 MG/150 ML BAG IVPB ONE (16:54)
[2019-08-06] MEDS ORDERED: Iohexol 350* (CONTRAST) 500 ML MDV IV ONE (17:16)
[2019-08-06] MEDS ORDERED: Cefepime 2 GM in Dextrose(*) 2 GM/50 ML BAG IV ONE (17:30)
[2019-08-06] MEDS ORDERED: NS 0.9% 1000 ML** 100 ML IV ONE (18:05)
[2019-08-06] MEDS ORDERED: Heparin VIAL(*) 5000 UNITS/ML VIAL (FIVE THOUSAND) ONE (19:12)
[2019-08-06] MEDS ORDERED: Heparin DRIP 25,000 UNITS(*) 25,000 UNITS/500 ML BAG ONE (19:12)
[2019-08-06] MEDS: Heparin DRIP 25,000 UNITS(*) 25,000 UNITS/500 ML BAG IV SCH (19:23)
[2019-08-06] MEDS ORDERED: Heparin VIAL(*) 5000 UNITS/ML VIAL (FIVE THOUSAND) IV ONE (19:44)
[2019-08-06] MEDS ORDERED: Vancomycin(*) 1,250 MG in NS 0.9% 250 ML* 250 ML IVPB ONE (19:50)
[2019-08-06] MEDS ORDERED: Vancomycin per Pharmacy* NOTE FOLLOW UP SCH (20:00)
[2019-08-06 20:06] LABS: EGFR African American 94.8 (>60); EGFR Non-African American 78.4 (>60)
[2019-08-06 20:12] LABS: ABS Basophils 0.1 10^3/ul (0-0.2); ABS Lymphocytes 1.1 10^3/ul (1.0-4.8); ABS Monocytes 1.5 10^3/ul (0-0.8); ABS Neutrophils 16.1 10^3/ul (1.5-7.7); Hematocrit 35 % (42-52); Hemoglobin 11.3 g/dL (14.0-18.0); Lymphocyte % 5.9 %; Mean Corpuscular HGB Conc 32 g/dL (31-36); Mean Corpuscular Hemoglobin 27 pg (27-31); Mean Corpuscular Volume 85 fL (80-94); Mean Platelet Volume 7.5 fL (7.4-10.4); Platelet Count 208 10^3/uL (150-450); Red Blood Count 4.16 10^6 /uL (4.18-5.48); Red Cell Distribution Width 20 % (10-15); White Blood Count 18.8 10^3/uL (3.5-10.8)
[2019-08-06] MEDS ORDERED: HYDROcodone/ACETAMIN 5-325 MG* 1 TAB PO PRN (20:15)
[2019-08-06] MEDS ORDERED: Ondansetron INJ* 2 MG/ML VIAL IV PRN (20:16)
[2019-08-06 20:27] LABS: Troponin I 0.15 ng/mL (<0.03)
[2019-08-06] MEDS ORDERED: NS 0.9% 1000 ML** 1,000 ML IV SCH (20:30)
[2019-08-06] MEDS ORDERED: Heparin VIAL(*) 5000 UNITS/ML VIAL (FIVE THOUSAND) IV SCH (20:30)
[2019-08-06] MEDS ORDERED: Albuterol/Ipratropium RESP(NF) MDI (Combivent Respimat) INH SCH (21:00)
--- NOTE | 2019-08-06 21:30 | HP ---
CONTINUATION ADDENDUM NOW INCLUDED ON THIS REPORT ADMISSION HISTORY AND PHYSICAL: DATE OF ADMISSION: 08/06/19 PRIMARY CARE PHYSICIAN: CINDY Richards PROVIDER: Merced Noriega NP ATTENDING PHYSICIAN: Dr. Gan.* (DICTATED BY MERCED NORIEGA NP) OTHER PROVIDER: Dr. Isbell. CHIEF COMPLAINT: Shortness of breath. HISTORY OF PRESENT ILLNESS: This is a 79-year-old male with past medical history significant for chronic obstructive pulmonary disease, hypertension, hyperlipidemia, and peripheral vascular disease, who came to the emergency room on 08/06/19 after a 2-week history of feeling ill, short of breath, and with general malaise, had seen his primary care physician on Sunday, the of this month, who put him on Augmentin and steroids for pneumonia. Then, he was seen by Dr. Michelle, on 07/28/19 for preop clearance for a colonoscopy in [place]. Then, 3 days ago, he developed hemoptysis. Of note, 3 months ago, he was treated for a 6- month history of severe claudication pain bilaterally with vascular surgery to bilateral lower extremities. Shortly thereafter, he was hospitalized for pneumonia, during which stay, he developed AFib, for which he was placed on Eliquis and then subsequently developed a rectal bleed. CONTINUATION ADDENDUM: HISTORY OF PRESENT ILLNESS: Of note - the patient was treated 3 months ago for severe claudication pain with bilateral lower extremity vascular surgery including stenting, and shortly thereafter, he was hospitalized with pneumonia, during which stay he developed AFib. At that time, he was placed on Eliquis and then developed a rectal bleed. HAS-BLED score is currently 2. In the emergency room, the patient received labs, chest x-ray, EKG, and chest/thorax CTA. Imaging showed that he has bilateral submassive PEs and atrial fibrillation with RVR as well as a loculated left pleural effusion which is possibly empyema. CTA did note that there was an elevated RV to LV ratio indicating right-sided strain due to the PE. The patient was mildly distressed upon evaluation, was okay with being transferred to the ICU and accepted the risk of bleeding and stated that he would prefer to be intubated should he decompensate. PAST MEDICAL HISTORY: 1. Hypertension. 2. Hyperlipidemia. 3. PVD. 4. COPD with 2 L of O2 at night. 5. Pneumonia. 6. Aortic aneurysm. 7. Arthritis. 8. Back problems. 9. Ulcers. PAST SURGICAL HISTORY: 1. Cardiac stenting x1. 2. Left shoulder surgery in 1997. HOME MEDICATIONS: 1. Amoxicillin/clavulanic acid 875 mg p.o. b.i.d. 2. Hydrocodone/acetaminophen 7.5/325 mg 1 tab p.o. t.i.d. p.r.n. 3. Prednisone 10 mg p.o. daily as a part of the taper that started on 07/25/19. 4. Ipratropium/albuterol 3 mL inhalation q.4 hours. 5. Omeprazole 20 mg p.o. daily. 6. Tiotropium bromide/olodaterol 1 puff inhalation b.i.d. 7. Combivent Respimat 1 puff inhalation b.i.d. 8. Metoprolol tartrate 100 mg p.o. daily. 9. Simvastatin 40 mg p.o. q.1700. 10. Clopidogrel 75 mg p.o. daily. 11. Guaifenesin 600 mg p.o. b.i.d. ALLERGIES: To SULFA. FAMILY HISTORY: Mother had breast cancer. Sister had unknown cancer. Also significant for cardiac disease. SOCIAL HISTORY: Quit smoking this summer, had smoked for 25 years about 1 pack a day. Denies any alcohol or recreational substance use. He is retired, lives with his . REVIEW OF SYSTEMS: An 11-point system review was performed which was positive for lack of appetite for the past 3 to 4 days, coughing with bright red sputum, dry eyes, generalized weakness, but denied chest pain, abdominal pain, or issues moving his bowel or bladder. PHYSICAL EXAMINATION GENERAL: This is a well-developed, older gentleman seen resting in bed, in mild distress. VITAL SIGNS: Temperature 97.0 Fahrenheit, 93 pulse, 20 respirations, 94% oxygen on 4 L, and 125/65 blood pressure. HEENT: Eyes: Conjunctivae pink and moist. PERRLA. EOMs intact. ENT: Mucous membranes dry. Oropharynx clear. NECK: Supple. RESPIRATORY: Lung sounds diminished throughout bilaterally on 4 L oxygen via nasal cannula. No accessory muscle use noted. CARDIAC: Heart rate irregular. No murmurs, gallops, or rubs appreciated. ABDOMEN: Soft, nondistended, nontender with positive bowel sounds x4. MUSCULOSKELETAL: No clubbing or cyanosis of the digits. Full range of motion in the upper and lower extremities. NEUROLOGICAL: Sensation intact to light touch. No focal deficits appreciated. PSYCH: Alert and oriented x3. Thought content organized. SKIN: No rashes or open areas appreciated. DIAGNOSTIC STUDIES/LAB DATA: Pertinent lab data: White blood cell count 18.8 , RBCs 4.16, hemoglobin 11.3, hematocrit 35, RDW 20. Troponin 0.15. Lactic acid 1.5. Sodium 131, chloride 98. Diagnostic studies: EKG showed atrial fibrillation with RVR. Chest/thorax CTA showed pulmonary emboli visualized in the right, middle, and left lower lobes, slightly elevated RV/LV ratio suggesting possible right heart failure, atelectasis versus pneumonitis at the left lung base and mild atelectasis at the posterior right lung base, loculated left pleural effusion, thoracic compression deformities as above. Chest x-ray showed hyperinflation with bibasilar pleural parenchymal scarring stable, no active cardiopulmonary disease. ASSESSMENT AND PLAN: My impression is that this is a 79-year-old male with a past medical history significant for hypertension, peripheral vascular disease, chronic obstructive pulmonary disease, who was admitted on 08/06/19 for bilateral submassive pulmonary embolism, atrial fibrillation with rapid ventricular response, and pneumonia versus empyema. 1. Bilateral submassive pulmonary embolism. The patient is hemodynamically stable, though slightly tachycardic, does not qualify for TPA at this time, though will be placed in the ICU for close monitoring, re-concerns of bleeding as shown by calvin red hemoptysis. He will be on heparin drip for 48 hours. Type and screen. We will transfuse as needed, to maintain heparin drip until that time. We will place the Plavix on hold for 3 days. The sPESI score showed high risk equivalent to 8.9% risk of , HAS-BLED score of 2. We will perform transthoracic echocardiogram as well as obtain ultrasound of bilateral lower extremities to look for DVTs. Likely, the patient will need an IVC filter. GI consult should be placed in the a.m. to prepare for the possibility of gastrointestinal bleed. The patient states that if he decompensates he does wish to be intubated. He understands the risk for bleeding with the heparin drip and is willing to take the risk. 2. Atrial fibrillation with rapid ventricular response. Previously, the patient developed a gastrointestinal bleed on Eliquis. Heparin drip for now. Metoprolol 2.5 mg IV q.4 hours standing with holding parameters. It is noted that on home medications the patient was on metoprolol tartrate. We will suggest that the patient be discharged home on metoprolol succinate. 3. Empyema versus pneumonia. CTA showed loculated pleural effusion on the left side. We will possibly consult IR for drainage on Sunday if symptoms do not resolve. I will have the patient placed on vancomycin and cefepime. The patient has received a bolus of IV fluid in the emergency room. We will maintain on normal saline at 50 mL an hour. 4. Gastroesophageal reflux disease. Placed home omeprazole on hold, started Protonix IV b.i.d. 5. Hypertension. The patient is maintaining blood pressures above 100 at this time. We will continue metoprolol with holding parameters. 6. Hyperlipidemia. Continue simvastatin. 7. Chronic obstructive pulmonary disease. Continue his nebulizers and inhalers as well as guaifenesin. We will stop prednisone due to risk of bleed. 8. DVT prophylaxis. Heparin drip. 9. Code status is full code. 10. Condition is critical. 11. Disposition is admit inpatient to the ICU. TIME SPENT: Time spent on this patient is 90 minutes with about 30 of that spent [id number], and my plan of care was discussed with Dr. Gan and he agrees. MERCED NORIEGA, CHECKER AND PACKER [id number]/[facility] #: [id number]/[facility] #: [id number] [place]
[2019-08-06] MEDS: Pantoprazole IV* 40 MG IV SCH (21:41)
[2019-08-06] MEDS: guaiFENesin ER TAB 600 MG PO SCH (21:42)
[2019-08-06] MEDS: Metoprolol Tartrate IV* 1 MG/ML 5 ML VIAL IV SCH (21:58)
[2019-08-06] MEDS: Tiotropium Brom/Olodaterol MDI INH SCH (22:11)
--- NOTE | 2019-08-06 22:53 | HP ---
ADMISSION HISTORY AND PHYSICAL: DATE OF ADMISSION: 08/06/19. ADDENDUM: HISTORY OF PRESENT ILLNESS: Of note, the patient was treated 3 months ago for severe claudication pain with bilateral lower extremity vascular surgery including stenting, and shortly thereafter, he was hospitalized with pneumonia, during which stay he developed AFib. At that time, he was placed on Eliquis and then developed a rectal bleed. HAS-BLED score is currently 2. In the emergency room, the patient received labs, chest x-ray, EKG, and chest/thorax CTA. Imaging showed that he has bilateral submassive PEs and atrial fibrillation with RVR as well as a loculated left pleural effusion which is possibly empyema. CTA did note that there was an elevated RV to LV ratio indicating right-sided strain due to the PE. The patient was mildly distressed upon evaluation, was okay with being transferred to the ICU and accepted the risk of bleeding and stated that he would prefer to be intubated should he decompensate. PAST MEDICAL HISTORY: 1. Hypertension. 2. Hyperlipidemia. 3. PVD. 4. COPD with 2 L of O2 at night. 5. Pneumonia. 6. Aortic aneurysm. 7. Arthritis. 8. Back problems. 9. Ulcers. PAST SURGICAL HISTORY: 1. Cardiac stenting x1. 2. Left shoulder surgery in 1997. HOME MEDICATIONS: 1. Amoxicillin/clavulanic acid 875 mg p.o. b.i.d. 2. Hydrocodone/acetaminophen 7.5/325 mg 1 tab p.o. t.i.d. p.r.n. 3. Prednisone 10 mg p.o. daily as a part of the taper that started on 07/25/19. 4. Ipratropium/albuterol 3 mL inhalation q.4 hours. 5. Omeprazole 20 mg p.o. daily. 6. Tiotropium bromide/olodaterol 1 puff inhalation b.i.d. 7. Combivent Respimat 1 puff inhalation b.i.d. 8. Metoprolol tartrate 100 mg p.o. daily. 9. Simvastatin 40 mg p.o. q.1700. 10. Clopidogrel 75 mg p.o. daily. 11. Guaifenesin 600 mg p.o. b.i.d. ALLERGIES: To SULFA. FAMILY HISTORY: Mother had breast cancer. Sister had unknown cancer. Also significant for cardiac disease. SOCIAL HISTORY: Quit smoking this summer, had smoked for 25 years about 1 pack a day. Denies any alcohol or recreational substance use. He is retired, lives with his . REVIEW OF SYSTEMS: An 11-point system review was performed which was positive for lack of appetite for the past 3 to 4 days, coughing with bright red sputum, dry eyes, generalized weakness, but denied chest pain, abdominal pain, or issues moving his bowel or bladder. PHYSICAL EXAMINATION GENERAL: This is a well-developed, older gentleman seen resting in bed, in mild distress. VITAL SIGNS: Temperature 97.0 Fahrenheit, 93 pulse, 20 respirations, 94% oxygen on 4 L, and 125/65 blood pressure. HEENT: Eyes: Conjunctivae pink and moist. PERRLA. EOMs intact. ENT: Mucous membranes dry. Oropharynx clear. NECK: Supple. RESPIRATORY: Lung sounds diminished throughout bilaterally on 4 L oxygen via nasal cannula. No accessory muscle use noted. CARDIAC: Heart rate irregular. No murmurs, gallops, or rubs appreciated. ABDOMEN: Soft, nondistended, nontender with positive bowel sounds x4. MUSCULOSKELETAL: No clubbing or cyanosis of the digits. Full range of motion in the upper and lower extremities. NEUROLOGICAL: Sensation intact to light touch. No focal deficits appreciated. PSYCH: Alert and oriented x3. Thought content organized. SKIN: No rashes or open areas appreciated. DIAGNOSTIC STUDIES/LAB DATA: Pertinent lab data: White blood cell count 18.8 , RBCs 4.16, hemoglobin 11.3, hematocrit 35, RDW 20. Troponin 0.15. Lactic acid 1.5. Sodium 131, chloride 98. Diagnostic studies: EKG showed atrial fibrillation with RVR. Chest/thorax CTA showed pulmonary emboli visualized in the right, middle, and left lower lobes, slightly elevated RV/LV ratio suggesting possible right heart failure, atelectasis versus pneumonitis at the left lung base and mild atelectasis at the posterior right lung base, loculated left pleural effusion, thoracic compression deformities as above. Chest x-ray showed hyperinflation with bibasilar pleural parenchymal scarring stable, no active cardiopulmonary disease. ASSESSMENT AND PLAN: My impression is that this is a 79-year-old male with a past medical history significant for hypertension, peripheral vascular disease, chronic obstructive pulmonary disease, who was admitted on 08/06/19 for bilateral submassive pulmonary embolism, atrial fibrillation with rapid ventricular response, and pneumonia versus empyema. 1. Bilateral submassive pulmonary embolism. The patient is hemodynamically stable, though slightly tachycardic, does not qualify for TPA at this time, though will be placed in the ICU for close monitoring, re-concerns of bleeding as shown by calvin red hemoptysis. He will be on heparin drip for 48 hours. Type and screen. We will transfuse as needed, to maintain heparin drip until that time. We will place the Plavix on hold for 3 days. The sPESI score showed high risk equivalent to 8.9% risk of , HAS-BLED score of 2. We will perform transthoracic echocardiogram as well as obtain ultrasound of bilateral lower extremities to look for DVTs. Likely, the patient will need an IVC filter. GI consult should be placed in the a.m. to prepare for the possibility of gastrointestinal bleed. The patient states that if he decompensates he does wish to be intubated. He understands the risk for bleeding with the heparin drip and is willing to take the risk. 2. Atrial fibrillation with rapid ventricular response. Previously, the patient developed a gastrointestinal bleed on Eliquis. Heparin drip for now. Metoprolol 2.5 mg IV q.4 hours standing with holding parameters. It is noted that on home medications the patient was on metoprolol tartrate. We will suggest that the patient be discharged home on metoprolol succinate. 3. Empyema versus pneumonia. CTA showed loculated pleural effusion on the left side. We will possibly consult IR for drainage on Sunday if symptoms do not resolve. I will have the patient placed on vancomycin and cefepime. The patient has received a bolus of IV fluid in the emergency room. We will maintain on normal saline at 50 mL an hour. 4. Gastroesophageal reflux disease. Placed home omeprazole on hold, started Protonix IV b.i.d. 5. Hypertension. The patient is maintaining blood pressures above 100 at this time. We will continue metoprolol with holding parameters. 6. Hyperlipidemia. Continue simvastatin. 7. Chronic obstructive pulmonary disease. Continue his nebulizers and inhalers as well as guaifenesin. We will stop prednisone due to risk of bleed. 8. DVT prophylaxis. Heparin drip. 9. Code status is full code. 10. Condition is critical. 11. Disposition is admit inpatient to the ICU. TIME SPENT: Time spent on this patient is 90 minutes with about 30 of that spent [id number], and my plan of care was discussed with Dr. Gan and he agrees. [id number]/[facility] #: [id number] [place]
[2019-08-06] MEDS ORDERED: Metoprolol Tartrate IV* 1 MG/ML 5 ML VIAL IV ONE (23:00)
[2019-08-07] MEDS: Metoprolol Tartrate IV* 1 MG/ML 5 ML VIAL IV SCH ×6 (00:05→21:02)
[2019-08-07 04:16] LABS: ABS Lymphocytes 0.6 10^3/ul (1.0-4.8); ABS Monocytes 0.9 10^3/ul (0-0.8); ABS Neutrophils 17.9 10^3/ul (1.5-7.7); Eosinophil % 0.2 %; Hematocrit 32 % (42-52); Hemoglobin 10.2 g/dL (14.0-18.0); Lymphocyte % 2.9 %; Mean Corpuscular HGB Conc 32 g/dL (31-36); Mean Corpuscular Hemoglobin 27 pg (27-31); Mean Corpuscular Volume 85 fL (80-94); Mean Platelet Volume 7.3 fL (7.4-10.4); Nucleated Red Blood Cells % 0.1; Platelet Count 202 10^3/uL (150-450); Red Blood Count 3.79 10^6 /uL (4.18-5.48); Red Cell Distribution Width 20 % (10-15); White Blood Count 19.4 10^3/uL (3.5-10.8)
[2019-08-07 04:29] LABS: BUN/Creatinine Ratio 19.6 (8-20); Blood Urea Nitrogen 19 mg/dL (6-24); CO2 Carbon Dioxide 21 mmol/L (22-32); Calcium 8.1 mg/dL (8.6-10.3); Chloride 104 mmol/L (101-111); EGFR African American 90.3 (>60); EGFR Non-African American 74.7 (>60); Glucose 94 mg/dL (70-100); Sodium 130 mmol/L (135-145)
[2019-08-07 04:38] LABS: Anion Gap 5 mmol/L (2-11)
[2019-08-07 05:55] LABS: Troponin I 0.29 ng/mL (<0.03)
[2019-08-07] MEDS: Pantoprazole IV* 40 MG IV SCH ×2 (08:26→21:07)
[2019-08-07] MEDS: Vancomycin(*) 1,000 MG in NS 0.9% 250 ML* 250 ML IV SCH ×2 (08:27→21:09)
[2019-08-07] MEDS: guaiFENesin ER TAB 600 MG PO SCH ×2 (08:27→21:05)
[2019-08-07] MEDS ORDERED: Cefepime 1 GM in Dextrose(*) 1 GM/50 ML BAG IV SCH (09:00)
--- NOTE | 2019-08-07 09:57 | ECHO ---
*[facility]* [place] [address] Fax #: [phone] Transthoracic Echocardiogram Patient: Blade Sanchez : 1940 Study Date: 08/07/2019 Age: 79 Gender: M HR: 110 bpm Height: 68 in /172.7 cm BSA: 1.82 m^2 Weight: 151.7 lb /69 kg BMI: 23.1 kg/m^2 *At[employer] Physics Professor: Zonia Huggins [facility] *Referring Physician: * Merced Noriega *Reading Physician: * Wilfredo Isbell MD Indications: Pulmonary Embolism. History: Atrial fibrillation. Coronary artery disease. Chronic obstructive pulmonary disease. PMH: Myocardial infarction. Risk factors: Hypertension. Dyslipidemia. Labs, prior tests, procedures, and surgery: Catheterization. There was a stenosis which was treated with a stent. Conclusions Summary: - Tricuspid valve: There is trace regurgitation. - Pulmonary arteries: Systolic pressure is mildly to moderately increased. The peak pressure during systole by Doppler is 49.0 mm Hg. - Technically difficult study due rapid atrial fibrillation and poor echocardiogram windows. There appears to be mild biventricular systolic dysfunction. There is no hemodynamically significant aortic (possibility of mild qualitatively), mitral or tricuspid valve disease on limited study. Study data: Transthoracic echocardiogram. Procedure: Transthoracic echocardiography was performed. Image quality was suboptimal. The study was technically limited due to chest wall deformity and Patient on Bipap. Complete 2D, spectral Doppler, and color flow Doppler. Location: ICU Patient status: Inpatient. Patient room number: 1. Rhythm: Tachycardia. Findings Left ventricle: Although no diagnostic regional wall motion abnormality is identified, this possibility cannot be completely excluded on the basis of this study. Left ventricular diastolic function parameters are indeterminate. Left atrium: The atrium is mildly dilated. Right atrium: The atrium is mildly dilated. Mitral valve: The leaflets are normal thickness. There is no evidence of stenosis. There is no significant regurgitation. Aortic valve: The valve is trileaflet. The leaflets are mildly thickened. There is no significant regurgitation. Tricuspid valve: The leaflets are normal thickness. There is no evidence of stenosis. There is trace regurgitation. Pulmonic valve: Not well visualized. There is no significant regurgitation. Aorta: Aortic arch: The aortic arch is mildly dilated. The aortic root appears normal. Pericardium: There is no significant pericardial effusion. Pulmonary arteries: Systolic pressure is mildly to moderately increased. Systemic veins: Inferior vena cava: The vessel is normal in size. There is (>= 50%) respiratory change in the IVC dimension. Measurements Left ventricle Value Ref Tricuspid valve Value Ref NALLELY, LAX 4.6 cm 4.2 - 5.8 TR peak v (H) 3.2 m/sec <=2.8 ESD, LAX 3.7 cm 2.5 - 4.0 Peak RV-RA grad, S 41 mm Hg ----- FS, LAX (L) 19 % 25 - 43 PW, ED, LAX (H) 1.5 cm 0.6 - 1.0 Aortic root Value Ref E', lat joao, TDI (L) 4.3 cm/sec >=10.0 Root diam 2.3 cm < 4.0 Ventricular septum Value Ref Ascending aorta Value Ref IVS, ED (H) 1.2 cm 0.6 - 1.0 AAo AP diam, S 3.0 cm ----- Right ventricle Value Ref Aortic arch Value Ref NALLELY, LAX 3.5 cm Arch diam 3.6 cm ----- NALLELY major ax, A4C (L) 4.3 cm 5.9 - 8.3 Pressure, S 49 mm Hg Decending aorta Value Ref Mallika peak priya 0.48 m/sec ----- Left atrium Value Ref AP dim, ES 4.00 cm 3.00 - Pulmonary artery Value Ref 4.00 Pressure, S 49.0 mm Hg ----- ML dim, A4C 4.3 cm SI dim, A4C 5.4 cm Inferior vena cava Value Ref Diam 1.3 cm ----- Right atrium Value Ref SI dim, ES 5.1 cm 3.4 - 5.3 ML dim, ES, A4C (H) 5.0 cm 2.6 - 4.4 Estimated RAP 8 mm Hg Legend: (L) and (H) roddy values outside specified reference range. Prepared and electronically signed by Wilfredo Isbell MD 08/07/2019 09:57
[2019-08-07 10:55] LABS: Troponin I 0.31 ng/mL (<0.03)
[2019-08-07] MEDS ORDERED: Furosemide IV* 10 MG/ML 2 ML VIAL (20 MG) IV ONE (12:31)
[2019-08-07] MEDS: Tiotropium Brom/Olodaterol MDI INH SCH ×2 (13:20→20:33)
--- NOTE | 2019-08-07 13:57 | PN ---
Subjective Date of Service: 08/07/19 Interval History: Patient seen today, he developed worsening shortness of breath last night! now he is on Vapotherm. Currently on heparin drip and he did have 2 episode of hemoptysis today. Diet changed to clear liquid, I confirmed his code status and does wish to maintain a full code status. labs reviewed WBC still elevated minimally improved. I will increase cefepime to 2 gm IV q8hrs. I met with daughter and at bedside, Updated them regarding test result and his clinical conditions Past Medical History: Unchanged from Admission Objective Active Medications: Acetaminophen (Tylenol Tab*) 650 mg PO Q4H PRN PRN Reason: MILD PAIN or TEMP > 100.4 Hydrocodone Bitart/Acetaminophen ([place] 5-325 Tab*) 1 tab PO Q6H PRN PRN Reason: PAIN - MODERATE Albuterol/Ipratropium (Duoneb (Albuterol 2.5 Mg/Ipratropium 0.5 Mg)) 1 neb INH [id number] AWAKE PRN PRN Reason: SHORTNESS OF BREATH Atorvastatin Calcium (Lipitor*) 20 mg PO 1700 [facility] Guaifenesin (Mucinex*) 600 mg PO BID [facility] Last Admin: 08/07/19 08:27 Dose: 600 mg Heparin Sodium (Porcine) (Heparin Vial(*)) 0 units IV .PER PROTOCOL [facility] Heparin Sodium/Dextrose (Heparin Drip 25,000 Units(*)) 25,000 units in 500 mls @ 0 mls/hr IV PER RATE [facility]; Protocol Last Admin: 08/06/19 19:23 Dose: 24.9 mls/hr Sodium Chloride (Ns 0.9% 1000 Ml) 1,000 mls @ 50 mls/hr IV PER RATE [facility] Stop: 08/07/19 16:29 Last Admin: 08/06/19 21:40 Dose: 50 mls/hr Vancomycin HCl 1,000 mg/ (Sodium Chloride) 250 mls @ 166.667 mls/hr IV Q12H [facility] Last Admin: 08/07/19 08:27 Dose: 166.667 mls/hr Cefepime HCl (Maxipime 2 Gm In Dextrose Duplex (*)) 2 gm in 50 mls @ 100 mls/ hr IV 0000,0800,1600 [facility] Metoprolol Tartrate (Lopressor Iv*) 5 mg IV Q4H [facility] Stop: 08/07/19 20:32 Last Admin: 08/07/19 12:58 Dose: 5 mg Ondansetron HCl (Zofran Inj*) 4 mg IV Q4H PRN PRN Reason: NAUSEA/VOMITING Pantoprazole Sodium (Protonix Iv*) 40 mg IV BID [facility] Last Admin: 08/07/19 08:26 Dose: 40 mg Pharmacy Consult (Vancomycin Per Pharmacy*) 1 note FOLLOW UP .VANC PER PHARMACY [facility]; Protocol Pharmacy Profile Note (Vancomycin Trough Check) 1 note FOLLOW UP 0830 ONE Stop: 08/08/19 08:31 Tiotropium [place]/Olodaterol (Stiolto Respimat Inh [place] (60 Puff)) 1 puff INH BID [facility] Last Admin: 08/07/19 13:20 Dose: Not Given Vital Signs - 8 hr 08/07/19 08/07/19 08/07/19 06:00 08:00 12:00 Temperature 98.9 F 98.5 F Pulse Rate 113 Respiratory 20 Rate Blood Pressure 123/57 (mmHg) O2 Sat by Pulse 96 Oximetry Oxygen Devices in Use Now: High Flow Heated Nasal Cannula - 36 F, 20 L flow rate , 40% Fi02 Appearance: sitting up, lip piercing. using accessory neck muscle Eyes: No Scleral Icterus, - - EOMI Ears/Nose/Mouth/Throat: NL Teeth, Lips, Gums, Mucous Membranes Moist Neck: NL Appearance and Movements; NL JVP, Trachea Midline Respiratory: - - expiratory wheezing and bibasilar crackles Cardiovascular: - - edema, right greater than left. tachycardia Abdominal: NL Sounds; No Tenderness; No Distention Skin: No Rash or Ulcers Neurological: Alert and Oriented x 3 Result Diagrams: 08/07/19 04:03 08/07/19 04:46 Microbiology and Other Data: Microbiology 08/06/19 21:40 Nasal Screen MRSA (PCR) - Final Nasal Mrsa Not Detected Assess/Plan/Problems-Billing Assessment: 79 y/o male known history of Afib, previous history of GI bleed on Eliquis ( discontinued in 04/2019), colon polyp, presented with acute shortness of breath found to have multiple pulmonary embolism and hemoptysis. admitted to ICU due to RV strain (not candidate for TPA given hemoptysis and GI bleed) placed on heparin drip - Patient Problems (1) Pulmonary embolism Current Visit: Yes Status: Acute Code(s): I26.99 - OTHER PULMONARY EMBOLISM WITHOUT ACUTE COR PULMONALE SNOMED Code(s): 95575842 Comment: - Right middle lobe and left lower lobe with RV strain. - Heparin drip (not candidate for TPA due to history of GI bleed 04/2019, and active hemoptysis) - Clear liquid today in the event respiratory compromise requiring intubations - Hold off oral anticoagulation until 72 hrs at least on heparin alone - Echo did show biventricular dysfunction. Will repeat in a week or so sooner if condition deteriorate (2) Right leg DVT Current Visit: Yes Status: Acute Code(s): I82.401 - ACUTE EMBOLISM AND THOMBOS UNSP DEEP VEINS OF R LOW EXTREM SNOMED Code(s): 503400531 Comment: - US RLE did show DVT in the right profunda femorus - Since on heparin drip already will hold off on IVC unless he devellop GI bleed , At that time the IVC filter will be indicated - Continue heparin drip for at least 72 hrs before initiating oral anticoagulation to see how his "hx of GI bleed and active hempotysis" plays out (3) Hemoptysis Current Visit: Yes Status: Acute Code(s): R04.2 - HEMOPTYSIS SNOMED Code(s ): 49570594 Comment: - This could be related to the PE and possible pulmonary infarct - He is on heparin drip will continue - Will consult Dr. Granados for further recommendations. - clear liquid for now in the event he deteriorate clinically and may require intubations. He is full code (4) History of GI bleed Current Visit: Yes Status: Acute Code(s): Z87.19 - PERSONAL HISTORY OF OTHER DISEASES OF THE DIGESTIVE SYSTEM SNOMED Code(s): 443561787 Comment: - This history dates back to 04/2019 when he was on Eliquis for Afib and plavix for his stent placement in his right femoral artery - Eliquis at that time was held, plavis was continued. Colonoscopy did shows large polyp and the plan to have polypectomy at [facility] once he is off plavix ( sometimes around 10/2018) - At this time, he is on heparin drip. Will keep him on heparin drip and no oral anticoagulation pending his clinical progress from pulmonary point of view (5) Atrial fibrillation Current Visit: No Status: Acute Code(s): I48.91 - UNSPECIFIED ATRIAL FIBRILLATION SNOMED Code(s): 00272349 Comment: - Lopressor increased to 5 mg IV q4hrs given his tachycardia - He was on Eliquis for Afib but it was held in 04/2019 due to GI bleed. Will keep him off oral anticoagulation for now until for 72 hrs or so until we see how he respond to heparin drip in regard to his PE. (6) COPD (chronic obstructive pulmonary disease) Current Visit: No Status: Acute Code(s): J44.9 - CHRONIC OBSTRUCTIVE PULMONARY DISEASE, UNSPECIFIED SNOMED Code(s): 71602640 Comment: - Placed on his home inhaler and neb treatment - Given the pleural effusion which is loculated, I am hesitant to start steroid for now. But if he continue to wheeze and have increase O2 requirement I may bolus with solumedrol and place him on IV solumedrol (7) Full code status Current Visit: No Status: Acute Code(s): Z78.9 - OTHER SPECIFIED HEALTH STATUS SNOMED Code(s): 409522224 Comment: - This has been discussed and visited with him on admission and today and he does wish to maintain and full code and full scope of treatment (8) HTN (hypertension) Current Visit: No Status: Acute Code(s): I10 - ESSENTIAL (PRIMARY) HYPERTENSION SNOMED Code(s): 80223475 Comment: - Now on IV lopressor 5 mg IV q4hrs. Will resume po Lopressor once he is more stable (9) Peripheral arterial disease Current Visit: No Status: Acute Code(s): I73.9 - PERIPHERAL VASCULAR DISEASE , UNSPECIFIED SNOMED Code(s): 105953810 Comment: - s/p stent placement by Guera Hunter - plavix on hold for now as he is on heparin drip - Will need to clarify if we can discontinue plavix and for further records from his office. - Given history of GI bleed while on dueal therapy, the question would be to see if it is safe to discontinue plavix and consider eliquis alone once off the heparin drip. (10) Pleural effusion Current Visit: Yes Status: Acute Code(s): J90 - PLEURAL EFFUSION, NOT ELSEWHERE CLASSIFIED SNOMED Code(s): 64158674 Comment: - I discussed the CT finding with the radiology from [facility] and did confirm the finding of loculated effusion. - I will consult with IR for possible Chest tube. The question timing as he is on heparin drip - I escalated his antibiotics to Vanco and cefepime 2 gm IV q8hrs given his leukocytosis
[2019-08-07] MEDS ORDERED: methylPREDNISolone 125 MG* 2 ML VIAL IV ONE (15:46)
[2019-08-07 16:13] LABS: Troponin I 0.18 ng/mL (<0.03)
[2019-08-07] MEDS: Cefepime 2 GM in Dextrose(*) 2 GM/50 ML BAG IV SCH (16:40)
--- NOTE | 2019-08-07 17:52 | CONS ---
PULMONARY CONSULTATION REPORT: DATE OF CONSULT: 08/07/19 CONSULTATION REQUESTED BY: Dr. Gan. REASON FOR CONSULTATION: Evaluation of pleural effusion, hemoptysis, pulmonary embolism. HISTORY OF PRESENT ILLNESS: The patient is a 79-year-old male with history of COPD, on home O2; hypertension; dyslipidemia; peripheral vascular disease, who presents to the emergency room for evaluation of worsening shortness of breath. The patient also reported feeling of generalized malaise. He was seen by primary care physician recently and was initiated on Augmentin and steroids for suspected pneumonia. He also saw Dr. Michelle on 07/28/19 for preop clearance for colonoscopy. The patient also reports having hemoptysis recently. He was treated for claudication pain by Vascular Surgery. He was also hospitalized for pneumonia and atrial fibrillation recently. He had rectal bleed while on anticoagulation with Eliquis. The patient has been not very mobile since his recent lower extremity pain. Further evaluation in the emergency room after his presentation included chest x-ray followed by a CT of the chest. I personally reviewed chest x-ray and CT scan of the chest. The patient with bilateral submassive pulmonary embolism with evidence of right heart strain. The patient also with evidence of airspace opacities in the left base. The patient also with evidence of small loculated pocket of fluid in the left lung. The patient continues to have episodes of hemoptysis. He has also had AFib with RVR during this hospitalization again. Given history of bleeding and recent vascular procedure, he was not thought to be a candidate for tPA. He was started on heparin drip. No acute GI bleed noted. He did also have continued hemoptysis episodes, but no calvin bleeding. The patient reports feeling better. He is currently on O2 salter with 10 L O2 supplementation. Cough is intermittent. Lower extremity Dopplers are also suggestive of DVT. PAST MEDICAL HISTORY: 1. Hypertension. 2. COPD, on home O2 at night. 3. Dyslipidemia. 4. Peripheral vascular disease, recent procedure done. 5. Pneumonia. 6. Aortic aneurysm. 7. Arthritis. 8. Back problems. 9. Ulcers. PAST SURGICAL HISTORY: 1. Cardiac stenting x1. 2. Left shoulder surgery in 1997. MEDICATIONS AT HOME: 1. Amoxicillin clavulanate. 2. Hydrocodone and acetaminophen. 3. Prednisone 10 mg as part of the taper that was started on 07/25/19. 4. Ipratropium albuterol. 5. Omeprazole. 6. Tiotropium. 7. Combivent. 8. Metoprolol. 9. Simvastatin. 10. Plavix. 11. Guaifenesin. ALLERGIES: SULFA. FAMILY HISTORY: Mother has breast cancer. Sister with unknown cancer. SOCIAL HISTORY: Quit smoking in August, smoked for about 25 years 1 pack per day. No alcohol or substance abuse. REVIEW OF SYSTEMS: All 14 systems reviewed and as per HPI. PHYSICAL EXAM: Elderly male, appropriate for stated age in bed, in no apparent distress. Vital Signs: Temperature 98.5, pulse 90 beats per minute, respiratory rate 19 per minute, O2 sat 98% to 100% while on 10 to 15 L, blood pressure 103/57. HEENT: Pupils equal, reactive to light. Mucous membranes moist. Lungs: Diminished air entry bilaterally, crackles and scattered rhonchi present. Cardiovascular: S1, S2 present, irregular. Abdomen: Soft, nontender , nondistended. Bowel sounds present. Extremities: Normal range of motion. Skin: No rash, bruises on the extremities. Neurologic: Alert, awake, oriented x3. DIAGNOSTIC STUDIES/LAB DATA: WBC count 19.4, hemoglobin 10.2, hematocrit 32, platelet count 202. PTT therapeutic at 73. Sodium 130, potassium 3.9, chloride 104, bicarb 21, BUN 19, creatinine 0.97. Troponins elevated. Blood cultures negative to date. CT as described above in HPI. Venous Dopplers suggestive of acute nonocclusive thrombus in right femoral vein. No left lower extremity DVT present. Echocardiogram shows elevated RVSP at around 49. IMPRESSION AND RECOMMENDATIONS: 79-year-old male with history of chronic obstructive pulmonary disease with recent vascular procedure and outpatient treatment for pneumonia, admitted with shortness of breath, hemoptysis, generalized malaise, was found to have lower extremity DVT and also with bilateral submassive pulmonary embolism. The patient also with possibility of left lower lobe pneumonia versus infiltrate. He has small loculated left pleural effusion with only fluid density. Loculated pocket is very small. I do not think he will need thoracentesis. The fluid density does not reveal sign of pus in the fluid, do not think there is need for thoracentesis at this point. He would be high risk for bleeding with thrombolytics. He has right heart strain; however, remains hemodynamically stable. His hypoxemia is also improving. I would avoid thrombolytics unless his clinical situation deteriorates at which time still the risks should be assessed with the family. He is on heparin with therapeutic PTT given history of GI bleed in the past, would watch until it is deemed safe to convert to long acting anticoagulation. Titrate FiO2 as tolerated. Would agree with current antibiotic choice for left- sided pneumonia. He does have wheezing on auscultation. Would recommend nebulizers p.r.n. Thank you for allowing me to participate in the care of your patient. Plan of care discussed with bedside RN and Dr. Gan. [id number]/CPS #: [id number] [place]
[2019-08-07] MEDS: Atorvastatin* 20 MG TAB PO SCH (18:24)
[2019-08-07] MEDS: Heparin DRIP 25,000 UNITS(*) 25,000 UNITS/500 ML BAG IV SCH (19:35)
[2019-08-07] MEDS: methylPREDNISolone SOD 40 MG* 1 ML VIAL IV SCH (21:11)
[2019-08-08] MEDS: Cefepime 2 GM in Dextrose(*) 2 GM/50 ML BAG IV SCH ×4 (00:05→23:28)
[2019-08-08] MEDS: methylPREDNISolone SOD 40 MG* 1 ML VIAL IV SCH ×3 (05:50→21:06)
[2019-08-08 06:27] LABS: Urine Appearance Cloudy; Urine Bilirubin Negative (Negative); Urine Blood Negative (Negative); Urine Color Yellow; Urine Glucose Negative (Negative); Urine Ketones Trace (Negative); Urine Nitrite Negative (Negative); Urine Protein 1+(30 mg/dL) (Negative); Urine Specific Gravity 1.026 (1.010-1.030); Urine Urobilinogen Negative (Negative)
[2019-08-08 06:30] LABS: Urine Bacteria Absent (Absent); Urine Red Blood Cell Absent (Absent); Urine White Blood Cell Trace(0-5/hpf) (Absent)
[2019-08-08 06:46] LABS: BUN/Creatinine Ratio 20.2 (8-20); Calcium 8.8 mg/dL (8.6-10.3); EGFR African American 99.8 (>60); EGFR Non-African American 82.5 (>60); Potassium 3.8 mmol/L (3.5-5.0)
[2019-08-08] MEDS: Tiotropium Brom/Olodaterol MDI INH SCH ×2 (08:16→20:20)
[2019-08-08] MEDS ORDERED: Vancomycin Trough Check NOTE FOLLOW UP ONE (08:30)
[2019-08-08 09:33] LABS: ABS Basophils 0.2 10^3/ul (0-0.2); ABS Lymphocytes 0.2 10^3/ul (1.0-4.8); ABS Monocytes 0.4 10^3/ul (0-0.8); ABS Neutrophils 12.1 10^3/ul (1.5-7.7); Hematocrit 32 % (42-52); Hemoglobin 10.3 g/dL (14.0-18.0); Lymphocyte % 1.9 %; Mean Corpuscular HGB Conc 32 g/dL (31-36); Mean Corpuscular Hemoglobin 27 pg (27-31); Mean Corpuscular Volume 84 fL (80-94); Mean Platelet Volume 7.8 fL (7.4-10.4); Platelet Count 202 10^3/uL (150-450); Red Cell Distribution Width 19 % (10-15); White Blood Count 12.9 10^3/uL (3.5-10.8)
[2019-08-08] MEDS: guaiFENesin ER TAB 600 MG PO SCH ×2 (09:49→21:04)
[2019-08-08] MEDS: Pantoprazole IV* 40 MG IV SCH ×2 (09:49→21:06)
[2019-08-08] MEDS: Vancomycin(*) 1,000 MG in NS 0.9% 250 ML* 250 ML IV SCH (09:49)
[2019-08-08] MEDS ORDERED: Vancomycin(*) 1,250 MG in NS 0.9% 250 ML* 250 ML IV SCH (10:47)
[2019-08-08] MEDS ORDERED: Furosemide IV* 10 MG/ML 2 ML VIAL (20 MG) IV ONE (15:29)
--- NOTE | 2019-08-08 15:46 | PN ---
Subjective Date of Service: 08/08/19 Interval History: Patient seen today, awake alert. out of bed to chair. Still requiring oxygen down to 6 liters at rest, 10 liters with exertions. report 2-3 episodes of hemoptysis today. no fever or chills. taking po well. no rectal bleed. coughing and wheezing Past Medical History: Unchanged from Admission Objective Active Medications: Acetaminophen (Tylenol Tab*) 650 mg PO Q4H PRN PRN Reason: MILD PAIN or TEMP > 100.4 Hydrocodone Bitart/Acetaminophen ([place] 5-325 Tab*) 1 tab PO Q6H PRN PRN Reason: PAIN - MODERATE Albuterol/Ipratropium (Duoneb (Albuterol 2.5 Mg/Ipratropium 0.5 Mg)) 1 neb INH [id number] AWAKE PRN PRN Reason: SHORTNESS OF BREATH Atorvastatin Calcium (Lipitor*) 20 mg PO 1700 [facility] Last Admin: 08/07/19 18:24 Dose: 20 mg Guaifenesin (Mucinex*) 600 mg PO BID [facility] Last Admin: 08/08/19 09:49 Dose: 600 mg Heparin Sodium (Porcine) (Heparin Vial(*)) 0 units IV .PER PROTOCOL [facility] Heparin Sodium/Dextrose (Heparin Drip 25,000 Units(*)) 25,000 units in 500 mls @ 0 mls/hr IV PER RATE [facility]; Protocol Last Admin: 08/07/19 19:35 Dose: 21 mls/hr Cefepime HCl (Maxipime 2 Gm In Dextrose Duplex (*)) 2 gm in 50 mls @ 100 mls/ hr IV 0000,0800,1600 [facility] Last Admin: 08/08/19 08:10 Dose: 100 mls/hr Vancomycin HCl 1,250 mg/ (Sodium Chloride) 250 mls @ 166.667 mls/hr IV Q12H [facility] Methylprednisolone Sodium Succinate (Solu-Medrol 40 Mg) 40 mg IV Q8H [facility] Last Admin: 08/08/19 14:08 Dose: 40 mg Ondansetron HCl (Zofran Inj*) 4 mg IV Q4H PRN PRN Reason: NAUSEA/VOMITING Pantoprazole Sodium (Protonix Iv*) 40 mg IV BID [facility] Last Admin: 08/08/19 09:49 Dose: 40 mg Pharmacy Consult (Vancomycin Per Pharmacy*) 1 note FOLLOW UP .VANC PER PHARMACY ABDOUL; Protocol Pharmacy Profile Note (Vancomycin Trough Check) 1 note FOLLOW UP 0730 ONE Stop: 08/10/19 07:31 Tiotropium [place]/Olodaterol (Stiolto Respimat Inh [place] (60 Puff)) 1 puff INH BID [facility] Last Admin: 08/08/19 08:16 Dose: 1 puff Vital Signs - 8 hr 08/08/19 08/08/19 08/08/19 07:45 08:00 08:15 Temperature 97 F Pulse Rate 75 77 85 Respiratory 17 12 12 Rate Blood Pressure 136/94 122/69 111/77 (mmHg) O2 Sat by Pulse 99 99 98 Oximetry 08/08/19 08/08/19 08/08/19 08:16 08:30 11:25 Temperature 97.1 F Pulse Rate 79 79 Respiratory 16 13 Rate Blood Pressure 117/58 (mmHg) O2 Sat by Pulse 98 99 Oximetry Oxygen Devices in Use Now: Nasal Cannula Appearance: awake, alert, no distress. In chair. Anxious Eyes: PERRLA, - - EOMI Neck: NL Appearance and Movements; NL JVP, Trachea Midline Respiratory: - - Expiratory wheezing. bibasilar rales. Cardiovascular: NL Sounds; No Murmurs; No JVD, No Edema Abdominal: NL Sounds; No Tenderness; No Distention Extremities: - - Trace edema Neurological: Alert and Oriented x 3 Result Diagrams: 08/08/19 06:00 08/08/19 06:00 Microbiology and Other Data: Microbiology 08/06/19 21:40 Nasal Screen MRSA (PCR) - Final Nasal Mrsa Not Detected Assess/Plan/Problems-Billing Assessment: 79 y/o male known history of Afib, previous history of GI bleed on Eliquis ( discontinued in 04/2019), colon polyp, presented with acute shortness of breath found to have multiple pulmonary embolism and hemoptysis. admitted to ICU due to RV strain (not candidate for TPA given hemoptysis and GI bleed) placed on heparin drip - Patient Problems (1) Pulmonary embolism Current Visit: Yes Status: Acute Code(s): I26.99 - OTHER PULMONARY EMBOLISM WITHOUT ACUTE COR PULMONALE SNOMED Code(s): 50105649 Comment: - Right middle lobe and left lower lobe with RV strain. - Heparin drip (not candidate for TPA due to history of GI bleed 04/2019, and active hemoptysis) - advance diet to cardiac. - Will continue to Hold off oral anticoagulation until 72 hrs at least on heparin alone - Echo did show biventricular dysfunction. Will repeat in am, cxr in am (2) Right leg DVT Current Visit: Yes Status: Acute Code(s): I82.401 - ACUTE EMBOLISM AND THOMBOS UNSP DEEP VEINS OF R LOW EXTREM SNOMED Code(s): 202005606 Comment: - US RLE did show DVT in the right profunda femorus - Since on heparin drip already will hold off on IVC unless he devellop GI bleed , At that time the IVC filter will be indicated - Continue heparin drip for at least 72 hrs before initiating oral anticoagulation to see how his "hx of GI bleed and active hempotysis" plays out - Consider oral anticoagulation in am (3) Hemoptysis Current Visit: Yes Status: Acute Code(s): R04.2 - HEMOPTYSIS SNOMED Code(s ): 32130328 Comment: - This could be related to the PE and possible pulmonary infarct - He is on heparin drip will continue - consult Dr. Granados appreciated - Advance diet as tolerated (4) History of GI bleed Current Visit: Yes Status: Acute Code(s): Z87.19 - PERSONAL HISTORY OF OTHER DISEASES OF THE DIGESTIVE SYSTEM SNOMED Code(s): 626937866 Comment: - This history dates back to 04/2019 when he was on Eliquis for Afib and plavix for his stent placement in his right femoral artery - Eliquis at that time was held, plavis was continued. Colonoscopy did shows large polyp and the plan to have polypectomy at [facility] once he is off plavix ( sometimes around 10/2018) - At this time, he is on heparin drip. Will keep him on heparin drip and no oral anticoagulation pending his clinical progress from pulmonary point of view (5) Atrial fibrillation Current Visit: No Status: Acute Code(s): I48.91 - UNSPECIFIED ATRIAL FIBRILLATION SNOMED Code(s): 75075725 Comment: - Lopressor increased to 5 mg IV q4hrs given his tachycardia. Will change to lopressor 25 mg bid. - He was on Eliquis for Afib but it was held in 04/2019 due to GI bleed. Will keep him off oral anticoagulation for now until for 72 hrs or so until we see how he respond to heparin drip in regard to his PE. (6) COPD (chronic obstructive pulmonary disease) Current Visit: No Status: Acute Code(s): J44.9 - CHRONIC OBSTRUCTIVE PULMONARY DISEASE, UNSPECIFIED SNOMED Code(s): 49108618 Comment: - Placed on his home inhaler and neb treatment - He continues to wheezes. he was started on solumedrol IV (7) HTN (hypertension) Current Visit: No Status: Acute Code(s): I10 - ESSENTIAL (PRIMARY) HYPERTENSION SNOMED Code(s): 84875317 Comment: - Now on IV lopressor 5 mg IV q4hrs. changed to Lopressor 25 mg bid (8) Peripheral arterial disease Current Visit: No Status: Acute Code(s): I73.9 - PERIPHERAL VASCULAR DISEASE , UNSPECIFIED SNOMED Code(s): 057242579 Comment: - s/p stent placement by [facility] Hunter - plavix on hold for now as he is on heparin drip - I did speak to [facility] and did suggest to resume antiplatelet as soon as he is stable. Agreed that given his hempotysis to hold off on antiplatelet. He recommend baby Aspirin if unable to resume plavix (9) Pleural effusion Current Visit: Yes Status: Acute Code(s): J90 - PLEURAL EFFUSION, NOT ELSEWHERE CLASSIFIED SNOMED Code(s): 49663709 Comment: - I discussed the CT finding with the radiology from [facility] and did confirm the finding of loculated effusion. I consulted with Barb and reviewed the CT and most likely is serous fluid based on the CT density. Hence, at this time will continue to medically treat him and defer intervention at this time - I escalated his antibiotics to Vanco and cefepime 2 gm IV q8hrs given his leukocytosis (10) Full code status Current Visit: No Status: Acute Code(s): Z78.9 - OTHER SPECIFIED HEALTH STATUS SNOMED Code(s): 232000052 Comment: - This has been discussed and visited with him on admission and today and he does wish to maintain and full code and full scope of treatment
[2019-08-08] MEDS: ALPRAZolam TAB* 0.25 MG PO PRN (17:26)
[2019-08-08] MEDS: Atorvastatin* 20 MG TAB PO SCH (17:28)
[2019-08-08] MEDS: Ferrous Sulfate TAB* 325 MG PO SCH (21:04)
[2019-08-08] MEDS: Metoprolol Tartrate TAB* 25 MG PO SCH (21:04)
[2019-08-08] MEDS: Vancomycin(*) 1,250 MG in NS 0.9% 250 ML* 250 ML IV SCH (21:12)
[2019-08-08] MEDS: Heparin DRIP 25,000 UNITS(*) 25,000 UNITS/500 ML BAG IV SCH (22:44)
[2019-08-09] MEDS: methylPREDNISolone SOD 40 MG* 1 ML VIAL IV SCH ×3 (05:16→20:36)
[2019-08-09 05:21] LABS: ABS Lymphocytes 0.3 10^3/ul (1.0-4.8); ABS Monocytes 0.5 10^3/ul (0-0.8); ABS Neutrophils 15.3 10^3/ul (1.5-7.7); Hematocrit 30 % (42-52); Hemoglobin 9.5 g/dL (14.0-18.0); Lymphocyte % 1.9 %; Mean Corpuscular HGB Conc 32 g/dL (31-36); Mean Corpuscular Hemoglobin 27 pg (27-31); Mean Corpuscular Volume 83 fL (80-94); Mean Platelet Volume 7.1 fL (7.4-10.4); Platelet Count 214 10^3/uL (150-450); Red Blood Count 3.56 10^6 /uL (4.18-5.48); Red Cell Distribution Width 19 % (10-15); White Blood Count 16.1 10^3/uL (3.5-10.8)
[2019-08-09 05:49] LABS: Calcium 8.8 mg/dL (8.6-10.3); Potassium 3.8 mmol/L (3.5-5.0)
[2019-08-09 05:55] LABS: BUN/Creatinine Ratio 25.7 (8-20); EGFR African American 86.2 (>60); EGFR Non-African American 71.3 (>60)
[2019-08-09] MEDS: Cefepime 2 GM in Dextrose(*) 2 GM/50 ML BAG IV SCH ×2 (07:23→16:29)
[2019-08-09] MEDS: Vancomycin(*) 1,250 MG in NS 0.9% 250 ML* 250 ML IV SCH (07:43)
[2019-08-09] MEDS: Tiotropium Brom/Olodaterol MDI INH SCH ×2 (07:56→19:53)
[2019-08-09] MEDS: Cyanocobalamin TAB* 500 MCG PO SCH (09:13)
[2019-08-09] MEDS: guaiFENesin ER TAB 600 MG PO SCH ×2 (09:13→20:37)
[2019-08-09] MEDS: Metoprolol Tartrate TAB* 25 MG PO SCH ×2 (09:13→20:37)
[2019-08-09] MEDS: Pantoprazole IV* 40 MG IV SCH ×2 (09:14→20:36)
[2019-08-09] MEDS: Ferrous Sulfate TAB* 325 MG PO SCH ×2 (09:14→20:37)
[2019-08-09] MEDS: Azithromycin 500 mg/250 ml NS 500 MG/250 ML BAG IVPB SCH (11:37)
[2019-08-09] MEDS: Polyethylene Glycol 3350* 17 GM PACKET PO PRN (13:11)
[2019-08-09] MEDS: ALPRAZolam TAB* 0.25 MG PO PRN (13:11)
--- NOTE | 2019-08-09 14:25 | PN ---
Subjective Date of Service: 08/09/19 Interval History: patient seen today. still coughing but hemoptysis is less. congested and I educated him on pulmonary toileting and incentive spirometer. Saturation 97% to 100% on 6 liters. Will try to wean down to 4 liter by am. Will obtain repeat echo limited to assess his RV and LV functions Past Medical History: Unchanged from Admission Objective Active Medications: Acetaminophen (Tylenol Tab*) 650 mg PO Q4H PRN PRN Reason: MILD PAIN or TEMP > 100.4 Hydrocodone Bitart/Acetaminophen ([place] 5-325 Tab*) 1 tab PO Q6H PRN PRN Reason: PAIN - MODERATE Albuterol/Ipratropium (Duoneb (Albuterol 2.5 Mg/Ipratropium 0.5 Mg)) 1 neb INH [id number] AWAKE PRN PRN Reason: SHORTNESS OF BREATH Alprazolam (Xanax Tab*) 0.25 mg PO Q8H PRN PRN Reason: ANXIETY Last Admin: 08/09/19 13:11 Dose: 0.25 mg Atorvastatin Calcium (Lipitor*) 20 mg PO 1700 [facility] Last Admin: 08/08/19 17:28 Dose: 20 mg Bisacodyl (Dulcolax Supp*) 10 mg [place] DAILY PRN PRN Reason: CONSTIPATION Cyanocobalamin (Vitamin B12 Tab*) 1,000 mcg PO DAILY [facility] Last Admin: 08/09/19 09:13 Dose: 1,000 mcg Ferrous Sulfate (Ferrous Sulfate Tab*) 325 mg PO BID [facility] Last Admin: 08/09/19 09:14 Dose: 325 mg Guaifenesin (Mucinex*) 600 mg PO BID [facility] Last Admin: 08/09/19 09:13 Dose: 600 mg Heparin Sodium (Porcine) (Heparin Vial(*)) 0 units IV .PER PROTOCOL [facility] Heparin Sodium/Dextrose (Heparin Drip 25,000 Units(*)) 25,000 units in 500 mls @ 0 mls/hr IV PER RATE [facility]; Protocol Last Admin: 08/08/19 22:44 Dose: 18 mls/hr Cefepime HCl (Maxipime 2 Gm In Dextrose Duplex (*)) 2 gm in 50 mls @ 100 mls/ hr IV 0000,0800,1600 [facility] Last Admin: 08/09/19 07:23 Dose: 100 mls/hr Azithromycin (Zithromax 500 Mg/250 Ml) 500 mg in 250 mls @ 250 mls/hr IVPB Q24H [facility] Last Admin: 08/09/19 11:37 Dose: 250 mls/hr Methylprednisolone Sodium Succinate (Solu-Medrol 40 Mg) 40 mg IV Q8H [facility] Last Admin: 08/09/19 13:12 Dose: 40 mg Metoprolol Tartrate (Lopressor Tab*) 25 mg PO BID [facility] Last Admin: 08/09/19 09:13 Dose: 25 mg Ondansetron HCl (Zofran Inj*) 4 mg IV Q4H PRN PRN Reason: NAUSEA/VOMITING Pantoprazole Sodium (Protonix Iv*) 40 mg IV BID [facility] Last Admin: 08/09/19 09:14 Dose: 40 mg Polyethylene Glycol/Electrolytes (Miralax*) 17 gm PO 0800,2100 PRN PRN Reason: CONSTIPATION Last Admin: 08/09/19 13:11 Dose: 17 gm Tiotropium [place]/Olodaterol (Stiolto Respimat Inh [place] (60 Puff)) 1 puff INH BID [facility] Last Admin: 08/09/19 07:56 Dose: 1 puff Vital Signs - 8 hr 08/09/19 08/09/19 08/09/19 08:00 08:50 13:11 Respiratory 18 18 Rate Blood Pressure 146/68 (mmHg) Oxygen Devices in Use Now: Nasal Cannula - 6 Liters Appearance: awake, alet. no distress. anxious Eyes: No Scleral Icterus, - - EOMI Ears/Nose/Mouth/Throat: NL Teeth, Lips, Gums, Mucous Membranes Moist Neck: NL Appearance and Movements; NL JVP, Trachea Midline Respiratory: - - wheezing. congested Cardiovascular: NL Sounds; No Murmurs; No JVD, No Edema Abdominal: NL Sounds; No Tenderness; No Distention Neurological: Alert and Oriented x 3 Result Diagrams: 08/09/19 04:46 08/09/19 04:46 Microbiology and Other Data: Microbiology 08/06/19 21:40 Nasal Screen MRSA (PCR) - Final Nasal Mrsa Not Detected Assess/Plan/Problems-Billing Assessment: 79 y/o male known history of Afib, previous history of GI bleed on Eliquis ( discontinued in 04/2019), colon polyp, presented with acute shortness of breath found to have multiple pulmonary embolism and hemoptysis. admitted to ICU due to RV strain (not candidate for TPA given hemoptysis and GI bleed) placed on heparin drip - Patient Problems (1) Pulmonary embolism Current Visit: Yes Status: Acute Code(s): I26.99 - OTHER PULMONARY EMBOLISM WITHOUT ACUTE COR PULMONALE SNOMED Code(s): 20481478 Comment: - Right middle lobe and left lower lobe with RV strain. - Heparin drip (not candidate for TPA due to history of GI bleed 04/2019, and active hemoptysis) - advance diet to cardiac. - Will continue to Hold off oral anticoagulation and will re-evaluate in am after his repeat echo. If there is some improvement of his RV pressure I may consider starting him on Eliquis and discontinue the heparin. - He denies any bowel movement. Stool softener provided. - Echo did show biventricular dysfunction. Will repeat in am, cxr in am (2) Right leg DVT Current Visit: Yes Status: Acute Code(s): I82.401 - ACUTE EMBOLISM AND THOMBOS UNSP DEEP VEINS OF R LOW EXTREM SNOMED Code(s): 545665435 Comment: - US RLE did show DVT in the right profunda femorus - Since on heparin drip already will hold off on IVC unless he devellop GI bleed , At that time the IVC filter will be indicated - Continue heparin drip for at least 72 hrs before initiating oral anticoagulation to see how his "hx of GI bleed and active hempotysis" plays out - Consider oral anticoagulation in am (3) Hemoptysis Current Visit: Yes Status: Acute Code(s): R04.2 - HEMOPTYSIS SNOMED Code(s ): 29725623 Comment: - This could be related to the PE and possible pulmonary infarct - He is on heparin drip will continue - consult Dr. Granados appreciated - Advance diet as tolerated (4) History of GI bleed Current Visit: Yes Status: Acute Code(s): Z87.19 - PERSONAL HISTORY OF OTHER DISEASES OF THE DIGESTIVE SYSTEM SNOMED Code(s): 380801802 Comment: - This history dates back to 04/2019 when he was on Eliquis for Afib and plavix for his stent placement in his right femoral artery - Eliquis at that time was held, plavis was continued. Colonoscopy did shows large polyp and the plan to have polypectomy at [place] once he is off plavix ( sometimes around 10/2018) - At this time, he is on heparin drip. Will keep him on heparin drip and no oral anticoagulation pending his clinical progress from pulmonary point of view (5) Atrial fibrillation Current Visit: No Status: Acute Code(s): I48.91 - UNSPECIFIED ATRIAL FIBRILLATION SNOMED Code(s): 50733713 Comment: - Lopressor increased to 5 mg IV q4hrs given his tachycardia. Will change to lopressor 25 mg bid. - He was on Eliquis for Afib but it was held in 04/2019 due to GI bleed. Will keep him off oral anticoagulation for now until for 72 hrs or so until we see how he respond to heparin drip in regard to his PE. (6) COPD (chronic obstructive pulmonary disease) Current Visit: No Status: Acute Code(s): J44.9 - CHRONIC OBSTRUCTIVE PULMONARY DISEASE, UNSPECIFIED SNOMED Code(s): 93812023 Comment: - Placed on his home inhaler and neb treatment - He continues to wheezes. he was started on solumedrol IV (7) HTN (hypertension) Current Visit: No Status: Acute Code(s): I10 - ESSENTIAL (PRIMARY) HYPERTENSION SNOMED Code(s): 61859479 Comment: - Now on IV lopressor 5 mg IV q4hrs. changed to Lopressor 25 mg bid (8) Peripheral arterial disease Current Visit: No Status: Acute Code(s): I73.9 - PERIPHERAL VASCULAR DISEASE , UNSPECIFIED SNOMED Code(s): 276362000 Comment: - s/p stent placement by [facility] Hunetr - plavix on hold for now as he is on heparin drip - I did speak to his surgeon from [place] and did suggest to resume antiplatelet as soon as he is stable. Agreed that given his hempotysis to hold off on antiplatelet. He recommend baby Aspirin if unable to resume plavix (9) Pleural effusion Current Visit: Yes Status: Acute Code(s): J90 - PLEURAL EFFUSION, NOT ELSEWHERE CLASSIFIED SNOMED Code(s): 59340203 Comment: - I discussed the CT finding with the radiology from [facility] and did confirm the finding of loculated effusion. I consulted with Barb and reviewed the CT and most likely is serous fluid based on the CT density. Hence, at this time will continue to medically treat him and defer intervention at this time - I escalated his antibiotics to Vanco and cefepime 2 gm IV q8hrs given his leukocytosis (10) Full code status Current Visit: No Status: Acute Code(s): Z78.9 - OTHER SPECIFIED HEALTH STATUS SNOMED Code(s): 981476985 Comment: - This has been discussed and visited with him on admission and today and he does wish to maintain and full code and full scope of treatment
[2019-08-09] MEDS: Atorvastatin* 20 MG TAB PO SCH (16:31)
[2019-08-10] MEDS: Cefepime 2 GM in Dextrose(*) 2 GM/50 ML BAG IV SCH ×4 (00:16→23:05)
[2019-08-10] MEDS: Heparin DRIP 25,000 UNITS(*) 25,000 UNITS/500 ML BAG IV SCH (05:33)
[2019-08-10] MEDS: methylPREDNISolone SOD 40 MG* 1 ML VIAL IV SCH ×4 (05:35→21:04)
[2019-08-10] MEDS ORDERED: Vancomycin Trough Check NOTE FOLLOW UP ONE (07:30)
[2019-08-10 07:33] LABS: ABS Lymphocytes 0.2 10^3/ul (1.0-4.8); ABS Monocytes 0.4 10^3/ul (0-0.8); ABS Neutrophils 14.7 10^3/ul (1.5-7.7); Hematocrit 29 % (42-52); Hemoglobin 9.4 g/dL (14.0-18.0); Lymphocyte % 1.5 %; Mean Corpuscular HGB Conc 33 g/dL (31-36); Mean Corpuscular Hemoglobin 27 pg (27-31); Mean Corpuscular Volume 83 fL (80-94); Mean Platelet Volume 7.5 fL (7.4-10.4); Platelet Count 227 10^3/uL (150-450); Red Blood Count 3.48 10^6 /uL (4.18-5.48); Red Cell Distribution Width 19 % (10-15); White Blood Count 15.4 10^3/uL (3.5-10.8)
[2019-08-10 07:36] LABS: Calcium 9.1 mg/dL (8.6-10.3); Potassium 4.1 mmol/L (3.5-5.0)
[2019-08-10 07:42] LABS: BUN/Creatinine Ratio 29.9 (8-20); EGFR African American 90.3 (>60); EGFR Non-African American 74.7 (>60)
[2019-08-10] MEDS: Tiotropium Brom/Olodaterol MDI INH SCH ×3 (08:08→20:40)
[2019-08-10] MEDS: Pantoprazole IV* 40 MG IV SCH (08:31)
[2019-08-10] MEDS: Metoprolol Tartrate TAB* 25 MG PO SCH (08:34)
[2019-08-10] MEDS: Ferrous Sulfate TAB* 325 MG PO SCH ×2 (08:35→20:40)
[2019-08-10] MEDS: Cyanocobalamin TAB* 500 MCG PO SCH (08:35)
[2019-08-10] MEDS: guaiFENesin ER TAB 600 MG PO SCH ×2 (08:35→20:42)
[2019-08-10] MEDS: ALPRAZolam TAB* 0.25 MG PO PRN (08:57)
[2019-08-10] MEDS: Albuterol/Ipratropium NEB.SOL* Albuterol 2.5 MG/Ipratropium 0.5 MG 3 ML INH PRN (08:59)
[2019-08-10] MEDS: Nitroglycerin 0.4 MG/HR PATCH* (10 MG) ONE ×2 (09:59→10:39)
[2019-08-10] MEDS: Nitroglycerin TAB 0.4 MG* 0.4 MG TAB SL PRN (10:20)
--- NOTE | 2019-08-10 10:20 | ECHO ---
*[facility]* [place] [address] Fax #: [phone] Limited Transthoracic Echocardiogram Patient: Blade Sanchez : 1940 Study Date: 08/10/2019 Age: 79 Gender: M HR: 68 bpm Height: 68 in /172.7 cm BSA: 1.79 m^2 Weight: 146.7 lb /66.7 kg BMI: 22.4 kg/m^2 *Collet Maker: * Annalise Smith [facility] *Referring Physician: * Mal GanReading Physician: * Wilfredo Isbell MD Indications: SOB. Pulmonary Embolism. History: Atrial fibrillation. Coronary artery disease. Chronic obstructive pulmonary disease. PMH: Myocardial infarction. Risk factors: Hypertension. Dyslipidemia. Labs, prior tests, procedures, and surgery: Catheterization. There was a stenosis which was treated with a stent. Conclusions Summary: - Left ventricle: The cavity size is normal. Systolic function is normal. The estimated ejection fraction is 55-60%. With basal to mid inferior hypokinesis - Right ventricle: The cavity size is mildly dilated. Systolic function is mildly reduced. Recommendations: Limited study, compared to prior full study from 08/07/2019, LVEF is now nromal and no longer tachycardic Study data: Transthoracic echocardiogram, limited study. Procedure: Transthoracic echocardiography was performed. Image quality was fair. The study was technically limited due to poor acoustic window availability. Location: Bedside. Patient status: Inpatient. Patient room number: 444-2. Rhythm: Normal sinus rhythm. Findings Left ventricle: The cavity size is normal. Systolic function is normal. The estimated ejection fraction is 55-60%. With basal to mid inferior hypokinesis Right ventricle: The cavity size is mildly dilated. Systolic function is mildly reduced. Measurements Right ventricle Value Ref NALLELY minor ax, A4C (H) 3.7 cm 1.9 - mid 3.5 Inferior vena cava Value Ref Diam 2.6 cm -------- Legend: (L) and (H) roddy values outside specified reference range. Prepared and electronically signed by Wilfredo Isbell MD 08/10/2019 10:20
[2019-08-10] MEDS: Azithromycin 500 mg/250 ml NS 500 MG/250 ML BAG IVPB SCH (10:40)
[2019-08-10 11:23] LABS: Troponin I 0.06 ng/mL (<0.03)
[2019-08-10] MEDS: Acetaminophen TAB* 325 MG PO PRN ×2 (11:49→22:44)
[2019-08-10 14:14] LABS: Troponin I 0.37 ng/mL (<0.03)
--- NOTE | 2019-08-10 16:06 | CONSULT ---
Subjective Date of Service: 08/10/19 Interval History: Date of consult: 08/10/2019 Service: Hospitalist CC: Chest pain while inpatient Reason for consult: [place] HPI: Mr. Sanchez is a 79 year old man with multiple comorbidities as below. This March he had seen Dr. Montes and had significant COPD related dyspnea on exertion and exhaustion along with claudication. He had been on 100 mg twice daily of metoprolol tartrate at that time and no wheezing was noted on exam. He had elective lower extremity percutaneous revascularization after that and patient tells me he has had series of complications since then (pneumonia, GI bleed). He was admitted with dyspnea, fatigue and hemoptysis and found with bilateral pulmonary emboli with imaging mild RV strain and being treated for pneumonia. He had been recovering well with less 02 requirements down to 4L and less hemoptysis. This morning he developed sudden onset left sided chest discomfort associated with nausea. He was given a SL NTG which improved discomfort and later completely resolved and is currently without any chest discomfort. He tells me this is the first time he has had any chest discomfort in years. there was no arrhythmia noted at time of event Pmhx/surgical hx Paroxysmal atrial fibrillation had LGIB on eliquis d/c 04/2019 and had been on plavix alone (has been held for 4 days) prior to admission for anti-platelet/ coagulant regimen GI bleed 04/2019 felt to be small bowel source CAD s/p PCI 1996. Presented AK s/p thrombolytic and PCI 2 days later (Dr. Serrano note from 09/25/2007 lists RCA stent I cannot locate procedure report in EHR) PAD s/p lower extremity percutaneous revascularization. Large colon polyp that needs surgically removed COPD HTN Dyslipidemia Cataract Removal - bilateral Rotator Cuff - (1997) Allergies: Sulfa Drugs 04/20/14 Tobramycin 03/28/19 allergy list reviewed on FH Father: Alcoholism. due to Unknown Causes. Mother: Ovarian Cancer. SH: Marital: .Occupation: Retired. Smoking: Patient is a former smoker .Alcohol: Currently consumes alcohol.Drug Use: Denies Drug Use. Medications Active Medications: Acetaminophen (Tylenol Tab*) 650 mg PO Q4H PRN PRN Reason: MILD PAIN or TEMP > 100.4 Last Admin: 08/10/19 11:49 Dose: 650 mg Hydrocodone Bitart/Acetaminophen ([place] 5-325 Tab*) 1 tab PO Q6H PRN PRN Reason: PAIN - MODERATE Albuterol/Ipratropium (Duoneb (Albuterol 2.5 Mg/Ipratropium 0.5 Mg)) 1 neb INH [id number] AWAKE PRN PRN Reason: SHORTNESS OF BREATH Last Admin: 08/10/19 08:59 Dose: 1 neb Alprazolam (Xanax Tab*) 0.25 mg PO Q8H PRN PRN Reason: ANXIETY Last Admin: 08/10/19 08:57 Dose: 0.25 mg Atorvastatin Calcium (Lipitor*) 20 mg PO 1700 [facility] Last Admin: 08/09/19 16:31 Dose: 20 mg Bisacodyl (Dulcolax Supp*) 10 mg [place] DAILY PRN PRN Reason: CONSTIPATION Cyanocobalamin (Vitamin B12 Tab*) 1,000 mcg PO DAILY [facility] Last Admin: 08/10/19 08:35 Dose: 1,000 mcg Ferrous Sulfate (Ferrous Sulfate Tab*) 325 mg PO BID [facility] Last Admin: 08/10/19 08:35 Dose: 325 mg Guaifenesin (Mucinex*) 600 mg PO BID [facility] Last Admin: 08/10/19 08:35 Dose: 600 mg Heparin Sodium (Porcine) (Heparin Vial(*)) 0 units IV .PER PROTOCOL ABDOUL Heparin Sodium/Dextrose (Heparin Drip 25,000 Units(*)) 25,000 units in 500 mls @ 0 mls/hr IV PER RATE [facility]; Protocol Last Admin: 08/10/19 05:33 Dose: 18 mls/hr Cefepime HCl (Maxipime 2 Gm In Dextrose Duplex (*)) 2 gm in 50 mls @ 100 mls/ hr IV 0000,0800,1600 [facility] Last Admin: 08/10/19 07:39 Dose: 100 mls/hr Azithromycin (Zithromax 500 Mg/250 Ml) 500 mg in 250 mls @ 250 mls/hr IVPB Q24H [facility] Last Admin: 08/10/19 10:40 Dose: 250 mls/hr Methylprednisolone Sodium Succinate (Solu-Medrol 40 Mg) 40 mg IV Q8H [facility] Last Admin: 08/10/19 13:52 Dose: 40 mg Metoprolol Tartrate (Lopressor Tab*) 25 mg PO BID [facility] Last Admin: 08/10/19 08:34 Dose: 25 mg Nitroglycerin (Nitroglycerin Tab 0.4 Mg*) 0.4 mg SL Q5M PRN PRN Reason: ANGINA Last Admin: 08/10/19 10:20 Dose: 0.4 mg Ondansetron HCl (Zofran Inj*) 4 mg IV Q4H PRN PRN Reason: NAUSEA/VOMITING Last Admin: 08/10/19 10:22 Dose: 4 mg Pantoprazole Sodium (Protonix Iv*) 40 mg IV BID [facility] Last Admin: 08/10/19 08:31 Dose: 40 mg Polyethylene Glycol/Electrolytes (Miralax*) 17 gm PO 0800,2100 PRN PRN Reason: CONSTIPATION Last Admin: 08/09/19 13:11 Dose: 17 gm Tiotropium [place]/Olodaterol (Stiolto Respimat Inh [place] (60 Puff)) 1 puff INH BID [facility] Last Admin: 08/10/19 08:59 Dose: 1 puff Home Medications: Simvastatin TAB(NF) [Zocor 20 MG (NF)] 40 mg PO 1700 07/08/16 [History Confirmed 08/06/19] Albuterol/Ipratropium RESP(NF) [Combivent Respimat (NF)] 1 puff IN BID 01/20/18 [History Confirmed 08/06/19] Tiotropium [place]/Olodaterol [Stiolto Respimat Inh [place] (60 puff)] 1 puff INH BID 05/13/19 [History Confirmed 08/06/19] guaiFENesin ER TAB [Mucinex*] 600 mg PO BID #14 tab.er 05/16/19 [Rx Confirmed ] Amoxicillin/Clavulanate TAB* [Augmentin TAB 875*] 875 mg PO BID 08/06/19 [ History Confirmed 08/06/19] Clopidogrel TAB* [Plavix TAB*] 75 mg PO DAILY 08/06/19 [History Confirmed ] Hydrocodone/Acetaminophen [[place] 7.5-325 Tablet] 1 tab PO TID PRN 08/06/19 [ History Confirmed 08/06/19] Ipratropium/Albuterol Sulfate [Iprat-Albut 0.5-3(2.5) mg/3 ml] 3 ml INH Q4HR [History Confirmed 08/06/19] Metoprolol Tartrate TAB* [Lopressor TAB*] 100 mg PO DAILY 08/06/19 [History Confirmed 08/06/19] Omeprazole CAP (NF) [Prilosec CAP* 20 MG] 20 mg PO DAILY 08/06/19 [History Confirmed 08/06/19] predniSONE TAB* [Deltasone 20 MG TAB*] 10 mg PO DAILY 08/06/19 [History Confirmed 08/06/19] Review of Systems - Measurements Intake and Output: Intake and Output Last 24 Hours 08/08/19 08/09/19 08/10/19 08/11/19 06:59 06:59 06:59 06:59 Intake Total 2664.6 1991 639.2 310 Output Total 1974 1355 540 225 Balance 689.6 637 99.2 85 Weight 147 lb 14.883 oz Intake: IV Fluids 837 170 10.2 ABX - CEFEPIME 30 10.2 ABX - VANCOMYCIN 30 NS 837 110 IVPB 843 735 269 310 ABX - AZITHROMYCIN 255 ABX - CEFEPIME 60 50 50 55 ABX - VANCOMYCIN 417 250 NS 366 435 heparin 219 Medicated IV 454.6 431 heparin 454.6 431 Heparin 206 Oral 530 450 360 Output: Urine 1974 1354 540 225 Other: # Voids 2 - Review of Systems Constitutional Symptoms: Positive: Weakness, Fatigue Negative: Weight Gain, Weight Loss, Fever, Night Sweats Dermatology: Negative: Skin Lesions HEENT: Negative: Change in Hearing, Vertigo Eyes: Negative: Change in Vision, Double Vision Thyroid: Negative: Weight Loss, Weight Gain Pulmonary: Positive: Hemoptysis, Wheezing, Respiratory Distress, Shortness of Breath Cardiology: Positive: Chest Pain, Shortness of Breath, Peripheral Vascular Dis Negative: Swelling of Ankles, Edema, Syncope Gastroenterology: Negative: Blood in Stools, Haematemesis, Melena Genital - Urinary: Negative: Dysuria, Hematuria Musculoskeletal: Negative: Joint Pain, Joint Stiffness Endocrinology: Negative: Polydipsia, Polyuria Hematologic/Lymphatic: Positive: Anemia, Use of Antiplatelet Drugs Neurology: Negative: Hx of Stroke\TIA, Hx Seizures Psychiatry: Negative: Unusual Anxiety, Suicidal Ideation Allergic/Immunologic: Negative: Hx HIV, Immunocompromise Review of Systems Statement: All other review of systems negative, unless stated above. Objective Vital Signs: Temp Pulse Resp BP Pulse Ox 97.8 F 94 20 164/65 95 08/10/19 12:00 08/10/19 12:00 08/10/19 12:00 08/10/19 12:00 08/10/19 12:00 Oxygen Devices in Use Now: Nasal Cannula Appearance: pleasant, not toxic appearing Ears/Nose/Mouth/Throat: Clear Oropharnyx Neck: Trachea Midline, - - uncertain jvp Respiratory: - - mild increased work of breathing with tachypnea, scattered wheeze Cardiovascular: RRR, - - no significant murmur or edema Abdominal: - - soft, no rigidity Extremities: No Clubbing, Cyanosis Skin: No Rash or Ulcers Neurological: Alert and Oriented x 3 Laboratory Results: 08/10/19 07:12 08/10/19 07:12 INR (Anticoag Therapy) 1.20 (0.82-1.09) H 08/06/19 15:58 APTT 55.0 seconds (26.0-38.0) H 08/09/19 21:57 Total Bilirubin 0.90 mg/dL (0.2-1.0) 08/06/19 15:58 AST 12 U/L (13-39) L 08/06/19 15:58 ALT 10 U/L (7-52) 08/06/19 15:58 Alkaline Phosphatase 55 U/L (34-104) 08/06/19 15:58 Total Protein 6.2 g/dL (6.4-8.9) L 08/06/19 15:58 Albumin 3.1 g/dL (3.2-5.2) L 08/06/19 15:58 Globulin 3.1 g/dL (2-4) 08/06/19 15:58 Albumin/Globulin Ratio 1.0 (1-3) 08/06/19 15:58 08/06/19 08/06/19 08/07/19 15:58 19:35 04:03 Troponin I 0.14 H* 0.15 H* 0.29 H* 08/07/19 08/07/19 08/10/19 09:45 15:30 10:53 Troponin I 0.31 H* 0.18 H* 0.06 H* 08/10/19 13:34 Troponin I 0.37 H* Diagnostic Imaging: EGD on 05/14/19 revealed no evidence of any fresh or old blood. No bleeding source was found. There was a mildly abnormal texture and pallor at the gastric body mucosa, not felt related to his GI bleed 05/15/19, colonoscopy complete to the terminal ileum. There were 2 telangiectasias, which were nonbleeding in the cecum, which were ablated with APC at 20 [place] with good effect. A large flat polyp found in the periappendiceal region was biopsied, but not removed as it was too large. Stress Test - (07/10/2007) Abnormal dipyridamole stress test. Evidence of moderate ischemia of the inferior wall.( some attenuation artifact may be present). Normal LV function. No old studies for comparison. EF 57% TID: 0.98. CT PE study 08/06/2019 IMPRESSION: 1. Pulmonary emboli visualized in the right middle and left lower lobes. 2. Slightly elevated RV to LV ratio suggests possible right heart failure. 3. Atelectasis versus pneumonitis at the left lung base. Mild atelectasis at the posterior right lung base. 4. Loculated left pleural effusion. 5. Thoracic compression deformities, as above. Lower extremity US 08/06/2019 IMPRESSION: 1. The study is positive for acute nonocclusive thrombus in the RIGHT profunda femoris vein. 2. No evidence of LEFT and lower extremity DVT. Transthoracic Echocardiogram Study Date: 08/07/2019 Conclusions Summary: - Tricuspid valve: There is trace regurgitation. - Pulmonary arteries: Systolic pressure is mildly to moderately increased. The peak pressure during systole by Doppler is 49.0 mmHg. - Technically difficult study due rapid atrial fibrillation and poor echocardiogram windows. There appears to be mild biventricular systolic dysfunction. There is no hemodynamically significant aortic (possibility of mild qualitatively), mitral or tricuspid valve disease on limited study. Limited Transthoracic Echocardiogram Study Date: 08/10/2019 Summary: - Left ventricle: The cavity size is normal. Systolic function is normal. The estimated ejection fraction is 55-60%. With basal to mid inferior hypokinesis - Right ventricle: The cavity size is mildly dilated. Systolic function is mildly reduced. EKG Data: ekg 08/06/2019 rapid afib 130 bpm old inferior AK rate related vs. ischemic st depression ekg 08/10/2109 sinus rhythm 90 bpm ivcd pvc and pac st depression v4-v6 and to lesser extent 1 and aVL slighlty more promiment than 05/14/2019 ekg with HR 78 bpm Assessment/Plan 1. Acute AK - ? type 1 vs. 2. Suspect type 1 with plavix held. - Known CAD s/p PCI - LVEF overall normal with no recurrent chest pain, sustained ventricular arrhythmias or hemodynamic instability - Suspect first troponin rise was more PE related and second one more CAD related 2. Submassive PE 3. COPD 4. Prior GIB - [place] to be probable small bowel source from prior endoscopy note 5. Paroxysmal atrial fibrillation 6 Anemia - Discussed with Dr. Gan and plan will be to transition IV heparin gtt ( current treating PE and AK) to an oral anti-coagulant once further stable - Would ideally add aspirin 81 mg po daily at some point if bleeding risk not felt to be excessively high. - Increase anti-anginal metoprolol from 25 to 50 mg po bid (ordered). I think current wheezing is PE/COPD related as he has been on beta-aidee higher dosing than this care home previously - Start anti-anginal imdur 60 mg po daily (ordered) - No statin intolerance noted, increase to lipitor 80 mg po daily and check lipid panel tomorrow AM (ordered) - Trend troponin to peak I discussed with patient my concerns of symptomatic myocardial ischemia related to CAD. We both agree that the risks of another invasive procedure/ revascularization with his recent medical complications is high and best to be avoided for the time being if possible. PCI would require, at least in the short term regardless of stent type used, at least some combination of anti- platelet/coagulant regimen. For now, will focus on optimizing medical management as above and repeat an EKG tomorrow AM (ordered). If he were to have recurrent rest angina despite optimized medical therapy, invasive evaluation/treatment in the near future may need to be reconsidered. Thank you for allowing me to participate in the cardiovascular care of this patient. Please do not hesitate to contact me with questions or concerns.
--- NOTE | 2019-08-10 16:54 | PN ---
Subjective Date of Service: 08/10/19 Interval History: patient seen earlier today, he was doing well. no distress. We were able to decrease his oxygen supplementation down to 4 liters with saturations of 94%. Around 11 am I was called with the patient complaining of chest pain and heaviness. NTG given and EKG stat did not show new EKG changes. non specific T wave inversion lateral leads (not new). NTG releived his symptoms. Initial trop was 0.06 and 3 hours later was 0.37 at 1 pm. Patient was pain free after on ntg. Given increase in trop and symptoms I called cardiology to evaluate and recommended increase metoprolol 50 mg bid and started isosorbide 60 mg daily. I inreased oxygen to 10 liter for tonight reassess requirement tomorrow Past Medical History: Unchanged from Admission Objective Active Medications: Acetaminophen (Tylenol Tab*) 650 mg PO Q4H PRN PRN Reason: MILD PAIN or TEMP > 100.4 Last Admin: 08/10/19 11:49 Dose: 650 mg Hydrocodone Bitart/Acetaminophen ([place] 5-325 Tab*) 1 tab PO Q6H PRN PRN Reason: PAIN - MODERATE Albuterol/Ipratropium (Duoneb (Albuterol 2.5 Mg/Ipratropium 0.5 Mg)) 1 neb INH [id number] AWAKE PRN PRN Reason: SHORTNESS OF BREATH Last Admin: 08/10/19 08:59 Dose: 1 neb Alprazolam (Xanax Tab*) 0.25 mg PO Q8H PRN PRN Reason: ANXIETY Last Admin: 08/10/19 08:57 Dose: 0.25 mg Atorvastatin Calcium (Lipitor*) 20 mg PO 1700 [facility] Last Admin: 08/09/19 16:31 Dose: 20 mg Bisacodyl (Dulcolax Supp*) 10 mg [place] DAILY PRN PRN Reason: CONSTIPATION Cyanocobalamin (Vitamin B12 Tab*) 1,000 mcg PO DAILY [facility] Last Admin: 08/10/19 08:35 Dose: 1,000 mcg Ferrous Sulfate (Ferrous Sulfate Tab*) 325 mg PO BID [facility] Last Admin: 08/10/19 08:35 Dose: 325 mg Guaifenesin (Mucinex*) 600 mg PO BID [facility] Last Admin: 08/10/19 08:35 Dose: 600 mg Heparin Sodium (Porcine) (Heparin Vial(*)) 0 units IV .PER PROTOCOL [facility] Heparin Sodium/Dextrose (Heparin Drip 25,000 Units(*)) 25,000 units in 500 mls @ 0 mls/hr IV PER RATE [facility]; Protocol Last Admin: 08/10/19 05:33 Dose: 18 mls/hr Cefepime HCl (Maxipime 2 Gm In Dextrose Duplex (*)) 2 gm in 50 mls @ 100 mls/ hr IV 0000,0800,1600 [facility] Last Admin: 08/10/19 07:39 Dose: 100 mls/hr Azithromycin (Zithromax 500 Mg/250 Ml) 500 mg in 250 mls @ 250 mls/hr IVPB Q24H [facility] Last Admin: 08/10/19 10:40 Dose: 250 mls/hr Isosorbide Mononitrate (Imdur Er Tab*) 60 mg PO DAILY [facility] Methylprednisolone Sodium Succinate (Solu-Medrol 40 Mg) 40 mg IV Q6H [facility] Metoprolol Tartrate (Lopressor Tab*) 50 mg PO BID [facility] Nitroglycerin (Nitroglycerin Tab 0.4 Mg*) 0.4 mg SL Q5M PRN PRN Reason: ANGINA Last Admin: 08/10/19 10:20 Dose: 0.4 mg Ondansetron HCl (Zofran Inj*) 4 mg IV Q4H PRN PRN Reason: NAUSEA/VOMITING Last Admin: 08/10/19 10:22 Dose: 4 mg Pantoprazole Sodium (Protonix Tab*) 40 mg PO BID [facility] Polyethylene Glycol/Electrolytes (Miralax*) 17 gm PO 0800,2100 PRN PRN Reason: CONSTIPATION Last Admin: 08/09/19 13:11 Dose: 17 gm Tiotropium [place]/Olodaterol (Stiolto Respimat Inh [place] (60 Puff)) 1 puff INH BID [facility] Last Admin: 08/10/19 08:59 Dose: 1 puff Vital Signs - 8 hr 08/10/19 08/10/19 08/10/19 08:57 09:00 10:00 Temperature Pulse Rate 95 92 Respiratory 19 24 20 Rate Blood Pressure 158/67 (mmHg) O2 Sat by Pulse 95 93 Oximetry 08/10/19 08/10/19 11:32 12:00 Temperature 97.8 F Pulse Rate 94 Respiratory 18 20 Rate Blood Pressure 164/65 (mmHg) O2 Sat by Pulse 95 Oximetry Oxygen Devices in Use Now: Nasal Cannula Appearance: awake, pleasant. audible wheezing. Eyes: No Scleral Icterus, - - Awake, alert. no acute distress Ears/Nose/Mouth/Throat: NL Teeth, Lips, Gums, Mucous Membranes Moist Neck: NL Appearance and Movements; NL JVP, Trachea Midline Respiratory: Symmetrical Chest Expansion and Respiratory Effort, - - audible wheezing, lip piercing Cardiovascular: RRR, - - trace edema Abdominal: NL Sounds; No Tenderness; No Distention Neurological: Alert and Oriented x 3 Result Diagrams: 08/10/19 07:12 08/10/19 07:12 Microbiology and Other Data: Microbiology 08/06/19 21:40 Nasal Screen MRSA (PCR) - Final Nasal Mrsa Not Detected Assess/Plan/Problems-Billing Assessment: 79 y/o male known history of Afib, previous history of GI bleed on Eliquis ( discontinued in 04/2019), colon polyp, presented with acute shortness of breath found to have multiple pulmonary embolism and hemoptysis. admitted to ICU due to RV strain (not candidate for TPA given hemoptysis and GI bleed) placed on heparin drip - Patient Problems (1) Pulmonary embolism Current Visit: Yes Status: Acute Code(s): I26.99 - OTHER PULMONARY EMBOLISM WITHOUT ACUTE COR PULMONALE SNOMED Code(s): 01847601 Comment: - Right middle lobe and left lower lobe with RV strain. - Heparin drip (not candidate for TPA due to history of GI bleed 04/2019, and active hemoptysis) - advance diet to cardiac. - Will continue to Hold off oral anticoagulation, continue heparin drip now that he does have NSTEMI. - No active GI bleed. - Echo did show biventricular dysfunction. repeat Echo official report pending. (2) Right leg DVT Current Visit: Yes Status: Acute Code(s): I82.401 - ACUTE EMBOLISM AND THOMBOS UNSP DEEP VEINS OF R LOW EXTREM SNOMED Code(s): 050914317 Comment: - US RLE did show DVT in the right profunda femorus. - Since on heparin drip already will hold off on IVC unless he devellop GI bleed , At that time the IVC filter will be indicated. - Continue heparin drip for now since he is having NSTEMI. (3) Hemoptysis Current Visit: Yes Status: Acute Code(s): R04.2 - HEMOPTYSIS SNOMED Code(s ): 96203939 Comment: - Improving - This could be related to the PE and possible pulmonary infarct - He is on heparin drip will continue - consult Dr. Granados appreciated - Advance diet as tolerated (4) History of GI bleed Current Visit: Yes Status: Acute Code(s): Z87.19 - PERSONAL HISTORY OF OTHER DISEASES OF THE DIGESTIVE SYSTEM SNOMED Code(s): 475077460 Comment: - This history dates back to 04/2019 when he was on Eliquis for Afib and plavix for his stent placement in his right femoral artery. - Eliquis at that time was held, plavis was continued. Colonoscopy did shows large polyp and the plan to have polypectomy at [facility] once he is off plavix ( sometimes around 10/2018) - At this time, he is on heparin drip. Will keep him on heparin drip and no oral anticoagulation pending his clinical progress from pulmonary point of view (5) Atrial fibrillation Current Visit: No Status: Acute Code(s): I48.91 - UNSPECIFIED ATRIAL FIBRILLATION SNOMED Code(s): 06315574 Comment: - Will change to lopressor 5o mg bid. - He was on Eliquis for Afib but it was held in 04/2019 due to GI bleed. Will keep him off oral anticoagulation for now unttil we see how he respond to heparin drip in regard to his PE. (6) COPD (chronic obstructive pulmonary disease) Current Visit: No Status: Acute Code(s): J44.9 - CHRONIC OBSTRUCTIVE PULMONARY DISEASE, UNSPECIFIED SNOMED Code(s): 12904101 Comment: - Placed on his home inhaler and neb treatment - He continues to wheezes. he was started on solumedrol IV 40 mgIV q8hrs. I am going to increase to 60 mg IV Q6hrs now that his beta blockers has increased (7) HTN (hypertension) Current Visit: No Status: Acute Code(s): I10 - ESSENTIAL (PRIMARY) HYPERTENSION SNOMED Code(s): 44508998 Comment: - Lopressor 50 mg bid (8) Peripheral arterial disease Current Visit: No Status: Acute Code(s): I73.9 - PERIPHERAL VASCULAR DISEASE , UNSPECIFIED SNOMED Code(s): 663893864 Comment: - s/p stent placement by [facility] - plavix on hold for now as he is on heparin drip - I did speak to his surgeon from [facility] and did suggest to resume antiplatelet as soon as he is stable. Agreed that given his hempotysis to hold off on antiplatelet. He recommend baby Aspirin if unable to resume plavix (9) Pleural effusion Current Visit: Yes Status: Acute Code(s): J90 - PLEURAL EFFUSION, NOT ELSEWHERE CLASSIFIED SNOMED Code(s): 79575464 Comment: - I discussed the CT finding with the radiology from [facility] and did confirm the finding of loculated effusion. I consulted with Barb and reviewed the CT and most likely is serous fluid based on the CT density. Hence, at this time will continue to medically treat him and defer intervention at this time - I escalated his antibiotics to Vanco (3 days discontinued now that his MRSA screen negative) and continued cefepime 2 gm IV q8hrs day # 4 and azithromycin IV day #2 (10) Full code status Current Visit: No Status: Acute Code(s): Z78.9 - OTHER SPECIFIED HEALTH STATUS SNOMED Code(s): 079269373 Comment: - This has been discussed and visited with him on admission and today and he does wish to maintain and full code and full scope of treatment
[2019-08-10] MEDS: Metoprolol Tartrate TAB* 50 mg PO SCH ×2 (17:00→20:42)
[2019-08-10] MEDS: Isosorbide Mononitrate ER TAB* 60 MG PO SCH (17:00)
[2019-08-10] MEDS: Atorvastatin* 20 MG TAB PO SCH (17:00)
[2019-08-10] MEDS: Aspirin EC TAB* 81 MG TAB.EC PO SCH (17:04)
[2019-08-10] MEDS ORDERED: Atorvastatin* 20 MG TAB PO ONE (17:51)
[2019-08-10] MEDS ORDERED: Atorvastatin* 80 MG TAB PO SCH (18:00)
[2019-08-10] MEDS: Pantoprazole TAB * 40 MG TAB PO SCH (20:42)
[2019-08-10 22:48] LABS: Troponin I 2.22 ng/mL (<0.03)
[2019-08-11] MEDS: Albuterol/Ipratropium NEB.SOL* Albuterol 2.5 MG/Ipratropium 0.5 MG 3 ML INH PRN (03:47)
[2019-08-11] MEDS: methylPREDNISolone SOD 40 MG* 1 ML VIAL IV SCH ×4 (03:57→23:44)
[2019-08-11] MEDS: Nitroglycerin TAB 0.4 MG* 0.4 MG TAB SL PRN (05:52)
[2019-08-11 06:09] LABS: ABS Lymphocytes 0.2 10^3/ul (1.0-4.8); ABS Monocytes 0.5 10^3/ul (0-0.8); Hematocrit 29 % (42-52); Hemoglobin 9.1 g/dL (14.0-18.0); Lymphocyte % 1.2 %; Mean Corpuscular HGB Conc 32 g/dL (31-36); Mean Corpuscular Hemoglobin 27 pg (27-31); Mean Corpuscular Volume 85 fL (80-94); Mean Platelet Volume 7.4 fL (7.4-10.4); Nucleated Red Blood Cells % 0.1; Platelet Count 234 10^3/uL (150-450); Red Cell Distribution Width 19 % (10-15); White Blood Count 13.7 10^3/uL (3.5-10.8)
[2019-08-11 06:20] LABS: Anion Gap 4 mmol/L (2-11); CO2 Carbon Dioxide 26 mmol/L (22-32); Calcium 9.2 mg/dL (8.6-10.3); Chloride 108 mmol/L (101-111); Potassium 4.7 mmol/L (3.5-5.0); Sodium 138 mmol/L (135-145)
[2019-08-11 06:26] LABS: BUN/Creatinine Ratio 28.6 (8-20); Blood Urea Nitrogen 30 mg/dL (6-24); Cholesterol 130 mg/dL; EGFR African American 82.4 (>60); EGFR Non-African American 68.1 (>60); Glucose 158 mg/dL (70-100); HDL Cholesterol 33.2 mg/dL; LDL Cholesterol 71 mg/dL; Triglycerides 130 mg/dL
[2019-08-11 06:43] LABS: Troponin I 1.56 ng/mL (<0.03)
[2019-08-11] MEDS: Tiotropium Brom/Olodaterol MDI INH SCH ×2 (08:07→20:23)
[2019-08-11] MEDS: Heparin DRIP 25,000 UNITS(*) 25,000 UNITS/500 ML BAG IV SCH (09:07)
[2019-08-11] MEDS: Cefepime 2 GM in Dextrose(*) 2 GM/50 ML BAG IV SCH ×3 (09:08→23:44)
[2019-08-11] MEDS: Cyanocobalamin TAB* 500 MCG PO SCH (09:10)
[2019-08-11] MEDS: guaiFENesin ER TAB 600 MG PO SCH ×2 (09:10→20:12)
--- NOTE | 2019-08-11 09:10 | PN ---
Subjective Date of Service: 08/11/19 - NSTEMI, submassive PE Interval History: Patient states breathing effort was improving however, since yesterday it has become more labored. He had recurrent substernal chest pain described as " burning " this morning at 0700. Patient states episode lasted 20 minutes and resolved with sublingual NTG. No recurrent pain since. HE has + hemoptysis. Family is at bedside. Denies palpitations, sensation of heart racing. Medications Active Medications: Acetaminophen (Tylenol Tab*) 650 mg PO Q4H PRN PRN Reason: MILD PAIN or TEMP > 100.4 Last Admin: 08/10/19 22:44 Dose: 650 mg Hydrocodone Bitart/Acetaminophen ([place] 5-325 Tab*) 1 tab PO Q6H PRN PRN Reason: PAIN - MODERATE Albuterol/Ipratropium (Duoneb (Albuterol 2.5 Mg/Ipratropium 0.5 Mg)) 1 neb INH [id number] AWAKE PRN PRN Reason: SHORTNESS OF BREATH Last Admin: 08/11/19 03:47 Dose: 1 neb Alprazolam (Xanax Tab*) 0.25 mg PO Q8H PRN PRN Reason: ANXIETY Last Admin: 08/10/19 08:57 Dose: 0.25 mg Aspirin (Aspirin Ec Tab*) 81 mg PO DAILY [facility] Last Admin: 08/10/19 17:04 Dose: 81 mg Atorvastatin Calcium (Lipitor*) 80 mg PO 1700 [facility] Bisacodyl (Dulcolax Supp*) 10 mg [place] DAILY PRN PRN Reason: CONSTIPATION Cyanocobalamin (Vitamin B12 Tab*) 1,000 mcg PO DAILY [facility] Last Admin: 08/10/19 08:35 Dose: 1,000 mcg Ferrous Sulfate (Ferrous Sulfate Tab*) 325 mg PO BID [facility] Last Admin: 08/10/19 20:40 Dose: 325 mg Guaifenesin (Mucinex*) 600 mg PO BID [facility] Last Admin: 08/10/19 20:42 Dose: 600 mg Heparin Sodium (Porcine) (Heparin Vial(*)) 0 units IV .PER PROTOCOL [facility] Heparin Sodium/Dextrose (Heparin Drip 25,000 Units(*)) 25,000 units in 500 mls @ 0 mls/hr IV PER RATE [facility]; Protocol Last Admin: 08/10/19 05:33 Dose: 18 mls/hr Cefepime HCl (Maxipime 2 Gm In Dextrose Duplex (*)) 2 gm in 50 mls @ 100 mls/ hr IV 0000,0800,1600 [facility] Last Admin: 08/10/19 23:05 Dose: 100 mls/hr Azithromycin (Zithromax 500 Mg/250 Ml) 500 mg in 250 mls @ 250 mls/hr IVPB Q24H [facility] Last Admin: 08/10/19 10:40 Dose: 250 mls/hr Isosorbide Mononitrate (Imdur Er Tab*) 60 mg PO DAILY [facility] Last Admin: 08/10/19 17:00 Dose: 60 mg Methylprednisolone Sodium Succinate (Solu-Medrol 40 Mg) 40 mg IV Q6H [facility] Last Admin: 08/11/19 03:57 Dose: 40 mg Metoprolol Tartrate (Lopressor Tab*) 50 mg PO BID [facility] Last Admin: 08/10/19 20:42 Dose: 50 mg Nitroglycerin (Nitroglycerin Tab 0.4 Mg*) 0.4 mg SL Q5M PRN PRN Reason: ANGINA Last Admin: 08/11/19 05:52 Dose: 0.4 mg Ondansetron HCl (Zofran Inj*) 4 mg IV Q4H PRN PRN Reason: NAUSEA/VOMITING Last Admin: 08/10/19 10:22 Dose: 4 mg Pantoprazole Sodium (Protonix Tab*) 40 mg PO BID [facility] Last Admin: 08/10/19 20:42 Dose: 40 mg Polyethylene Glycol/Electrolytes (Miralax*) 17 gm PO 0800,2100 PRN PRN Reason: CONSTIPATION Last Admin: 08/09/19 13:11 Dose: 17 gm Tiotropium [place]/Olodaterol (Stiolto Respimat Inh [place] (60 Puff)) 1 puff INH BID [facility] Last Admin: 08/11/19 08:07 Dose: 1 puff Objective Vital Signs: Temp Pulse Resp BP Pulse Ox 97.3 F 89 24 100/45 92 08/11/19 04:00 08/11/19 08:11 08/11/19 08:11 08/11/19 04:00 08/11/19 08:11 Oxygen Devices in Use Now: Nasal Cannula Appearance: pleasant, not toxic appearing Ears/Nose/Mouth/Throat: Clear Oropharnyx Neck: Trachea Midline, - - uncertain jvp Respiratory: - - mild increased work of breathing with tachypnea, scattered wheeze. + hemoptysis. Cardiovascular: RRR, - - no significant murmur or edema Abdominal: - - soft, no rigidity Extremities: No Clubbing, Cyanosis Skin: No Rash or Ulcers Neurological: Alert and Oriented x 3 Lines/Tubes/Other Access: Clean, Dry and Intact Peripheral IV Laboratory Results: 08/11/19 05:50 08/11/19 05:47 INR (Anticoag Therapy) 1.20 (0.82-1.09) H 08/06/19 15:58 APTT 63.8 seconds (26.0-38.0) H 08/10/19 22:22 Total Bilirubin 0.90 mg/dL (0.2-1.0) 08/06/19 15:58 AST 12 U/L (13-39) L 08/06/19 15:58 ALT 10 U/L (7-52) 08/06/19 15:58 Alkaline Phosphatase 55 U/L (34-104) 08/06/19 15:58 Total Protein 6.2 g/dL (6.4-8.9) L 08/06/19 15:58 Albumin 3.1 g/dL (3.2-5.2) L 08/06/19 15:58 Globulin 3.1 g/dL (2-4) 08/06/19 15:58 Albumin/Globulin Ratio 1.0 (1-3) 08/06/19 15:58 Triglycerides 130 mg/dL 08/11/19 05:47 Cholesterol 130 mg/dL 08/11/19 05:47 LDL Cholesterol 71 mg/dL 08/11/19 05:47 HDL Cholesterol 33.2 mg/dL 08/11/19 05:47 08/06/19 08/06/19 08/07/19 15:58 19:35 04:03 Troponin I 0.14 H* 0.15 H* 0.29 H* 08/07/19 08/07/19 08/10/19 09:45 15:30 10:53 Troponin I 0.31 H* 0.18 H* 0.06 H* 08/10/19 08/10/19 08/10/19 13:34 18:54 22:22 Troponin I 0.37 H* 2.00 H* 2.22 H* 08/11/19 05:47 Troponin I 1.56 H* Laboratory Results - last 24 hr 08/10/19 08/10/19 08/10/19 10:53 13:34 18:54 WBC RBC Hgb Hct MCV MCH MCHC RDW Plt Count MPV Neut % (Auto) Lymph % (Auto) [place] % (Auto) Eos % (Auto) Baso % (Auto) Absolute Neuts (auto) Absolute Lymphs (auto) Absolute Monos (auto) Absolute Eos (auto) Absolute Basos (auto) Absolute Nucleated RBC Nucleated RBC % APTT Sodium Potassium Chloride Carbon Dioxide Anion Gap BUN Creatinine Est GFR ( Amer) Est GFR (Non-Af Amer) BUN/Creatinine Ratio Glucose Calcium Troponin I 0.06 H* 0.37 H* 2.00 H* Triglycerides Cholesterol LDL Cholesterol HDL Cholesterol 08/10/19 08/10/19 08/11/19 22:22 22:22 05:47 WBC RBC Hgb Hct MCV MCH MCHC RDW Plt Count MPV Neut % (Auto) Lymph % (Auto) [place] % (Auto) Eos % (Auto) Baso % (Auto) Absolute Neuts (auto) Absolute Lymphs (auto) Absolute Monos (auto) Absolute Eos (auto) Absolute Basos (auto) Absolute Nucleated RBC Nucleated RBC % APTT 63.8 H Sodium 138 Potassium 4.7 Chloride 108 Carbon Dioxide 26 Anion Gap 4 BUN 30 H Creatinine 1.05 Est GFR ( Amer) 82.4 Est GFR (Non-Af Amer) 68.1 BUN/Creatinine Ratio 28.6 H Glucose 158 H Calcium 9.2 Troponin I 2.22 H* 1.56 H* Triglycerides 130 Cholesterol 130 LDL Cholesterol 71 HDL Cholesterol 33.2 08/11/19 05:50 WBC 13.7 H RBC 3.40 L Hgb 9.1 L Hct 29 L MCV 85 MCH 27 MCHC 32 RDW 19 H Plt Count 234 MPV 7.4 Neut % (Auto) 95.0 Lymph % (Auto) 1.2 [place] % (Auto) 3.6 Eos % (Auto) 0.0 Baso % (Auto) 0.2 Absolute Neuts (auto) 13.0 H Absolute Lymphs (auto) 0.2 L Absolute Monos (auto) 0.5 Absolute Eos (auto) 0.0 Absolute Basos (auto) 0.0 Absolute Nucleated RBC 0.0 Nucleated RBC % 0.1 APTT Sodium Potassium Chloride Carbon Dioxide Anion Gap BUN Creatinine Est GFR ( Amer) Est GFR (Non-Af Amer) BUN/Creatinine Ratio Glucose Calcium Troponin I Triglycerides Cholesterol LDL Cholesterol HDL Cholesterol Diagnostic Imaging: EGD on 05/14/19 revealed no evidence of any fresh or old blood. No bleeding source was found. There was a mildly abnormal texture and pallor at the gastric body mucosa, not felt related to his GI bleed 05/15/19, colonoscopy complete to the terminal ileum. There were 2 telangiectasias, which were nonbleeding in the cecum, which were ablated with APC at 20 [place] with good effect. A large flat polyp found in the periappendiceal region was biopsied, but not removed as it was too large. Stress Test - (07/10/2007) Abnormal dipyridamole stress test. Evidence of moderate ischemia of the inferior wall.( some attenuation artifact may be present). Normal LV function. No old studies for comparison. EF 57% TID: 0.98. CT PE study 08/06/2019 IMPRESSION: 1. Pulmonary emboli visualized in the right middle and left lower lobes. 2. Slightly elevated RV to LV ratio suggests possible right heart failure. 3. Atelectasis versus pneumonitis at the left lung base. Mild atelectasis at the posterior right lung base. 4. Loculated left pleural effusion. 5. Thoracic compression deformities, as above. Lower extremity US 08/06/2019 IMPRESSION: 1. The study is positive for acute nonocclusive thrombus in the RIGHT profunda femoris vein. 2. No evidence of LEFT and lower extremity DVT. Transthoracic Echocardiogram Study Date: 08/07/2019 Conclusions Summary: - Tricuspid valve: There is trace regurgitation. - Pulmonary arteries: Systolic pressure is mildly to moderately increased. The peak pressure during systole by Doppler is 49.0 mmHg. - Technically difficult study due rapid atrial fibrillation and poor echocardiogram windows. There appears to be mild biventricular systolic dysfunction. There is no hemodynamically significant aortic (possibility of mild qualitatively), mitral or tricuspid valve disease on limited study. Limited Transthoracic Echocardiogram Study Date: 08/10/2019 Summary: - Left ventricle: The cavity size is normal. Systolic function is normal. The estimated ejection fraction is 55-60%. With basal to mid inferior hypokinesis - Right ventricle: The cavity size is mildly dilated. Systolic function is mildly reduced. EKG Data: ekg 08/06/2019 rapid afib 130 bpm old inferior PA rate related vs. ischemic st depression ekg 08/10/2109 sinus rhythm 90 bpm ivcd pvc and pac st depression v4-v6 and to lesser extent 1 and aVL slightly more prominent than 05/14/2019 ekg with HR 78 bpm ECG 08/11/2019; Sinus Rhythm rate 71 lateral TWI improved compared to 2018 , ICVD. Assessment/Plan #1 NSTEMI; Occurred while off of Plavix in the setting of a submassive PE. He had c/o chest pain 08/10/2019 limited echo revealed + basal mid inferior WMA. Troponin peaked on 08/10/2019 at 2.2. He had recurrent chest pain at 0700 that resolved with sublingual NTG. Will increase Imdur to 90mg/day. Continue Lopressor 50mg PO BID, Lipitor 80QHS. Not a cath candidate given h/o anemia with prior GIB on eliquis. He is having recurrent hemopytsis however, it appears to be related to PE. I spoke with patient's Ophthalmic Photographer who is recommending PPI therapy and iron replacement. Patient follows Dr. Michelle for IV Iron, has known cecal polyp that has not been removed and h/o AVMs. #2 Submassive PE; On IV heparin with known RLE DVT. ? to have IVC filter. Differ to primary team.+ hemopytsis noted today on exam. #3 h/o PAF; On IV heparin. In NSR on bblocker therapy. #4 h/o GERBER historically followed by Dr. Michelle and Dr. Shi. Had GIB in 2018. On Protonix 40mg Po BID, differ Iron replacement to primary team. #5 Disposition pending course. Patient full code. Will follow closely. Attending: Inderjit Montes
[2019-08-11] MEDS: ALPRAZolam TAB* 0.25 MG PO PRN ×2 (09:11→20:12)
[2019-08-11] MEDS: Aspirin EC TAB* 81 MG TAB.EC PO SCH (09:11)
[2019-08-11] MEDS: Isosorbide Mononitrate ER TAB* 60 MG PO SCH (09:11)
[2019-08-11] MEDS: Pantoprazole TAB * 40 MG TAB PO SCH ×2 (09:11→20:12)
[2019-08-11] MEDS: Metoprolol Tartrate TAB* 50 mg PO SCH ×2 (09:11→20:11)
[2019-08-11] MEDS: Ferrous Sulfate TAB* 325 MG PO SCH ×2 (09:11→20:12)
[2019-08-11] MEDS ORDERED: Furosemide IV* 10 MG/ML 2 ML VIAL (20 MG) IV ONE (09:26)
[2019-08-11] MEDS: Azithromycin 500 mg/250 ml NS 500 MG/250 ML BAG IVPB SCH (10:00)
[2019-08-11 10:55] LABS: Troponin I 1.11 ng/mL (<0.03)
--- NOTE | 2019-08-11 16:01 | PN ---
Progress Note - Progress Note Date of Service: 08/11/19 - Pulm f/u note Note: Pt seen and examined at bedside. Pt has deteriorated this weekend, has NSTEMi. Pt reports feeling worse, SOB+, hemoptysis 1 episode this am, not able to cough any more secretions since. Has intermittent cough. Has episodes of chest pain Active Medications Generic Name Dose Route Start Last Admin Trade Name Freq PRN Reason Stop Dose Admin Acetaminophen 650 mg 08/06/19 20:16 08/10/19 22:44 Tylenol Tab* PO 650 mg Q4H PRN Administration MILD PAIN or TEMP > 100.4 Hydrocodone Bitart/Acetaminophen 1 tab 08/06/19 20:15 [place] 5-325 Tab* PO Q6H PRN PAIN - MODERATE Albuterol/Ipratropium 1 neb 08/06/19 23:00 08/11/19 03:47 Duoneb (Albuterol 2.5 Mg/Ipratropium 0.5 Mg) INH 1 neb [id number] AWAKE PRN Administration SHORTNESS OF BREATH Alprazolam 0.25 mg 08/08/19 15:57 08/11/19 09:11 Xanax Tab* PO 0.25 mg Q8H PRN Administration ANXIETY Aspirin 81 mg 08/12/19 09:00 Aspirin 81 Mg Chew Tab* PO DAILY [facility] Atorvastatin Calcium 80 mg 08/11/19 18:00 Lipitor* PO 1700 [facility] Bisacodyl 10 mg 08/09/19 11:24 Dulcolax Supp* [place] DAILY PRN CONSTIPATION Cyanocobalamin 1,000 mcg 08/09/19 09:00 08/11/19 09:10 Vitamin B12 Tab* PO 1,000 mcg DAILY [facility] Administration Ferrous Sulfate 325 mg 08/08/19 21:00 08/11/19 09:11 Ferrous Sulfate Tab* PO 325 mg BID [facility] Administration Guaifenesin 600 mg 08/06/19 21:00 08/11/19 09:10 Mucinex* PO 600 mg BID [facility] Administration Heparin Sodium (Porcine) 0 units 08/06/19 20:30 Heparin Vial(*) IV .PER PROTOCOL [facility] Heparin Sodium/Dextrose 25,000 units in 500 mls @ 0 mls/hr 08/06/19 18:45 09:07 Heparin Drip 25,000 Units(*) IV 18 mls/hr PER RATE [facility] Administration Protocol Per Protocol Cefepime HCl 2 gm in 50 mls @ 100 mls/hr 08/07/19 16:00 08/11/19 09:08 Maxipime 2 Gm In Dextrose Duplex (*) IV 100 mls/hr 0000,0800,1600 [facility] Administration Azithromycin 500 mg in 250 mls @ 250 mls/hr 08/09/19 10:00 08/11/19 10:00 Zithromax 500 Mg/250 Ml IVPB 250 mls/hr Q24H [facility] Administration Isosorbide Mononitrate 90 mg 08/12/19 09:00 Imdur Er Tab* PO DAILY [facility] Methylprednisolone Sodium Succinate 40 mg 08/10/19 17:00 08/11/19 10:00 Solu-Medrol 40 Mg IV 40 mg Q6H [facility] Administration Metoprolol Tartrate 50 mg 08/10/19 17:00 08/11/19 09:11 Lopressor Tab* PO 50 mg BID [facility] Administration Nitroglycerin 0.4 mg 08/10/19 09:54 08/11/19 05:52 Nitroglycerin Tab 0.4 Mg* SL 0.4 mg Q5M PRN Administration ANGINA Ondansetron HCl 4 mg 08/06/19 20:16 08/10/19 10:22 Zofran Inj* IV 4 mg Q4H PRN Administration NAUSEA/VOMITING Pantoprazole Sodium 40 mg 08/10/19 21:00 08/11/19 09:11 Protonix Tab* PO 40 mg BID [facility] Administration Polyethylene Glycol/Electrolytes 17 gm 08/09/19 11:25 08/09/19 13:11 Miralax* PO 17 gm 0800,2100 PRN Administration CONSTIPATION Tiotropium [place]/Olodaterol 1 puff 08/06/19 21:00 08/11/19 08:07 Stiolto Respimat Inh [place] (60 Puff) INH 1 puff BID [facility] Administration Vital Signs Temp Pulse Resp BP Pulse Ox 97.8 F 70 18 126/50 96 08/11/19 11:45 08/11/19 11:45 08/11/19 12:45 08/11/19 11:45 08/11/19 11:45 O/E: Pt in NAD, looks weak nad tired HEENT: PERRLA Lungs: Diminished air entry b/l, crackles+ CVS: S1, S2+ Abd: Soft, BS+ Ext: Normal ROM Skin: No rash Neuro: No focal deficits Laboratory Results - last 24 hr 08/10/19 08/10/19 08/10/19 18:54 22:22 22:22 WBC RBC Hgb Hct MCV MCH MCHC RDW Plt Count MPV Neut % (Auto) Lymph % (Auto) [place] % (Auto) Eos % (Auto) Baso % (Auto) Absolute Neuts (auto) Absolute Lymphs (auto) Absolute Monos (auto) Absolute Eos (auto) Absolute Basos (auto) Absolute Nucleated RBC Nucleated RBC % APTT 63.8 H Sodium Potassium Chloride Carbon Dioxide Anion Gap BUN Creatinine Est GFR ( Amer) Est GFR (Non-Af Amer) BUN/Creatinine Ratio Glucose Calcium Troponin I 2.00 H* 2.22 H* Triglycerides Cholesterol LDL Cholesterol HDL Cholesterol 08/11/19 08/11/19 08/11/19 05:47 05:50 10:15 WBC 13.7 H RBC 3.40 L Hgb 9.1 L Hct 29 L MCV 85 MCH 27 MCHC 32 RDW 19 H Plt Count 234 MPV 7.4 Neut % (Auto) 95.0 Lymph % (Auto) 1.2 [place] % (Auto) 3.6 Eos % (Auto) 0.0 Baso % (Auto) 0.2 Absolute Neuts (auto) 13.0 H Absolute Lymphs (auto) 0.2 L Absolute Monos (auto) 0.5 Absolute Eos (auto) 0.0 Absolute Basos (auto) 0.0 Absolute Nucleated RBC 0.0 Nucleated RBC % 0.1 APTT Sodium 138 Potassium 4.7 Chloride 108 Carbon Dioxide 26 Anion Gap 4 BUN 30 H Creatinine 1.05 Est GFR ( Amer) 82.4 Est GFR (Non-Af Amer) 68.1 BUN/Creatinine Ratio 28.6 H Glucose 158 H Calcium 9.2 Troponin I 1.56 H* 1.11 H* Triglycerides 130 Cholesterol 130 LDL Cholesterol 71 HDL Cholesterol 33.2 I/R: 79 y/o male known history of Afib, previous history of GI bleed on Eliquis (discontinued in 04/2019), colon polyp, presented with acute shortness of breath found to have b/l submassive PE with signficant clot burden, pl effusion, and hemoptysis. admitted to ICU due to RV strain (not candidate for TPA given hemoptysis and GI bleed) placed on heparin drip Pt had complicated course with NSTEMI pt continues to have episodes of hemoptysis Will c/w Heparin drip unless significant bleeding given significant clot burden Might need evaluation for IVC filter if cant be anticoagulated FiO2 requirements have improved Having significant cough without much phleghm Pt with intermittent chest pains, not stable for cath at this time, to be considered as out pt continues on abx, steroids GERD precautions and PPi Will order cough medicine c/w O2 Overall prognosis guarded to poor given multiple comorbidities
--- NOTE | 2019-08-11 16:09 | PN ---
Subjective Date of Service: 08/11/19 Interval History: Patient seen and examined. Appears comfortable, family at bedside. States his breathing is "ok" today. States he had chest pain early this morning and that NTG helped. Has not had any since. Denies fever or chills, no abdominal pain. Bloody cough started again this morning, which he is concerned about. Discussed POC at length with patient and family. Past Medical History: Unchanged from Admission Objective Active Medications: Acetaminophen (Tylenol Tab*) 650 mg PO Q4H PRN PRN Reason: MILD PAIN or TEMP > 100.4 Last Admin: 08/10/19 22:44 Dose: 650 mg Hydrocodone Bitart/Acetaminophen ([place] 5-325 Tab*) 1 tab PO Q6H PRN PRN Reason: PAIN - MODERATE Albuterol/Ipratropium (Duoneb (Albuterol 2.5 Mg/Ipratropium 0.5 Mg)) 1 neb INH [id number] AWAKE PRN PRN Reason: SHORTNESS OF BREATH Last Admin: 08/11/19 03:47 Dose: 1 neb Alprazolam (Xanax Tab*) 0.25 mg PO Q8H PRN PRN Reason: ANXIETY Last Admin: 08/11/19 09:11 Dose: 0.25 mg Aspirin (Aspirin 81 Mg Chew Tab*) 81 mg PO DAILY [facility] Atorvastatin Calcium (Lipitor*) 80 mg PO 1700 [facility] Bisacodyl (Dulcolax Supp*) 10 mg SD DAILY PRN PRN Reason: CONSTIPATION Cyanocobalamin (Vitamin B12 Tab*) 1,000 mcg PO DAILY [facility] Last Admin: 08/11/19 09:10 Dose: 1,000 mcg Ferrous Sulfate (Ferrous Sulfate Tab*) 325 mg PO BID [facility] Last Admin: 08/11/19 09:11 Dose: 325 mg Guaifenesin (Mucinex*) 600 mg PO BID [facility] Last Admin: 08/11/19 09:10 Dose: 600 mg Heparin Sodium (Porcine) (Heparin Vial(*)) 0 units IV .PER PROTOCOL [facility] Heparin Sodium/Dextrose (Heparin Drip 25,000 Units(*)) 25,000 units in 500 mls @ 0 mls/hr IV PER RATE [facility]; Protocol Last Admin: 08/11/19 09:07 Dose: 18 mls/hr Cefepime HCl (Maxipime 2 Gm In Dextrose Duplex (*)) 2 gm in 50 mls @ 100 mls/ hr IV 0000,0800,1600 [facility] Last Admin: 08/11/19 09:08 Dose: 100 mls/hr Azithromycin (Zithromax 500 Mg/250 Ml) 500 mg in 250 mls @ 250 mls/hr IVPB Q24H [facility] Last Admin: 08/11/19 10:00 Dose: 250 mls/hr Isosorbide Mononitrate (Imdur Er Tab*) 90 mg PO DAILY [facility] Methylprednisolone Sodium Succinate (Solu-Medrol 40 Mg) 40 mg IV Q6H [facility] Last Admin: 08/11/19 10:00 Dose: 40 mg Metoprolol Tartrate (Lopressor Tab*) 50 mg PO BID [facility] Last Admin: 08/11/19 09:11 Dose: 50 mg Nitroglycerin (Nitroglycerin Tab 0.4 Mg*) 0.4 mg SL Q5M PRN PRN Reason: ANGINA Last Admin: 08/11/19 05:52 Dose: 0.4 mg Ondansetron HCl (Zofran Inj*) 4 mg IV Q4H PRN PRN Reason: NAUSEA/VOMITING Last Admin: 08/10/19 10:22 Dose: 4 mg Pantoprazole Sodium (Protonix Tab*) 40 mg PO BID [facility] Last Admin: 08/11/19 09:11 Dose: 40 mg Polyethylene Glycol/Electrolytes (Miralax*) 17 gm PO 0800,2100 PRN PRN Reason: CONSTIPATION Last Admin: 08/09/19 13:11 Dose: 17 gm Throat Lozenges (Chloraseptic Diana*) 1 diana PO Q6H PRN PRN Reason: SORE THROAT Tiotropium [place]/Olodaterol (Stiolto Respimat Inh [place] (60 Puff)) 1 puff INH BID [facility] Last Admin: 08/11/19 08:07 Dose: 1 puff Vital Signs - 8 hr 08/11/19 08/11/19 08/11/19 08:11 09:11 11:45 Temperature 97.8 F Pulse Rate 89 70 Respiratory 24 24 20 Rate Blood Pressure 126/50 (mmHg) O2 Sat by Pulse 92 96 Oximetry 08/11/19 12:45 Temperature Pulse Rate Respiratory 18 Rate Blood Pressure (mmHg) O2 Sat by Pulse Oximetry Oxygen Devices in Use Now: Nasal Cannula Appearance: alert, ill appearing Eyes: PERRLA Ears/Nose/Mouth/Throat: Mucous Membranes Moist Neck: NL Appearance and Movements; NL JVP Respiratory: Symmetrical Chest Expansion and Respiratory Effort, - - diminished lung dorsey with shallow respiratory effort Cardiovascular: NL Sounds; No Murmurs; No JVD, RRR, No Edema Abdominal: NL Sounds; No Tenderness; No Distention, No Hepatosplenomegaly Extremities: No Edema, No Clubbing, Cyanosis Skin: No Rash or Ulcers Neurological: Alert and Oriented x 3 Nutrition: Taking PO's Result Diagrams: 08/11/19 05:50 08/11/19 05:47 Microbiology and Other Data: Microbiology 08/06/19 21:40 Nasal Screen MRSA (PCR) - Final Nasal Mrsa Not Detected Diagnostic Imaging: Patient Name: RAIN MULTANI Medical Record#: [id number] Ordering Physician: Daniel Copeland MD Acct.#: [id number] : 1940 Age: 79 Sex: M Location: [facility] Exam Date: 08/06/191546 ADM Status: ADM IN Order Information: CTA CHEST Accession Number: [id number] CPT: 04490 ADDENDUM Addendum created by Yusra Singh MD on 08/06/2019 6:41:31 PM EST The ordering physician Daniel Hayes was contacted by phone at 6:38 PM EST, 08/06/2019 with these results. Initial report created on 08/06/2019 6:35:43 PM EST PROCEDURE INFORMATION: Exam: CT Angiography Chest With Contrast Exam date and time: 08/06/2019 5:32 PM Age: 79 years old Clinical history: Shortness of breath; Additional info: Hemoptysis and SOB. R/O pe TECHNIQUE: Imaging protocol: Computed tomographic angiography of the chest with intravenous contrast. 3D rendering: MIP reconstructed images were created and reviewed. Radiation optimization: All CT scans at this facility use at least one of these dose optimization techniques: automated exposure control; mA and/or kV adjustment per patient size (includes targeted exams where dose is matched to clinical indication); or iterative reconstruction. Contrast material: OMNIPAQUE 350; Contrast volume: 64 ml; Contrast route: IV; COMPARISON: OT CXR PORTAP CHEST AP OR PORT 08/06/2019 3:26 PM FINDINGS: Pulmonary arteries: Pulmonary emboli are seen bilaterally, visualized in the right middle and left lower lobes, occlusive and partially occlusive. Emboli are seen in third and fourth degree pulmonary arterial branches. Aorta: Atherosclerotic vascular disease is noted. The thoracic aorta is normal caliber. No aneurysm or dissection is seen. Lungs: Emphysematous changes of the lungs bilaterally. Left lung bases infiltrates may reflect atelectasis or pneumonitis. Correlate with clinical information. The is minimal atelectasis at the posterior right lower lobe. Pleural space: No pleural effusion at the lung bases. There is an apparent loculated pleural effusion on the left, at the superior aspect of the fissure. Heart: There is a slightly elevated RV to LV ratio of 1.18. No cardiomegaly. No pericardial effusion. Lymph nodes: Mediastinal and hilar lymph nodes are upper limits of normal to mildly enlarged. These are nonspecific. Bones/joints: 13 sets of ribs are noted. The uppermost set of ribs likely reflects cervical ribs at the C7 level. There are compression deformities at the T5, T6, and T12 levels which are age-indeterminate. Previous report from 03/28/2019 described compression fractures at T6 and T7 levels, probably relating to a difference in vertebral body numbering. The central superior compression at T12 was not described in the 03/28/2019 report. [facility] Patient Name:RAIN MULTANI MR: [id number] : 1940 IMPRESSION: 1. Pulmonary emboli visualized in the right middle and left lower lobes. 2. Slightly elevated RV to LV ratio suggests possible right heart failure. 3. Atelectasis versus pneumonitis at the left lung base. Mild atelectasis at the posterior right lung base. 4. Loculated left pleural effusion. 5. Thoracic compression deformities, as above. To contact [facility] with a general question: [facility] - [phone] For direct physician to physician contact: Physician Hotline - [phone] [facility] ([facility] Facility ID #[id number]) <Electronically signed by Yusra Singh MD in OV>08/06/19 184 Dictated by: Yusra Singh MD Dictated Date/Time:08/06/19 173 Transcribed Date/Time: 08/06/191731 Copy to: Mal Gan MD; Daniel Copeland MD; Ramakrishna Isbell MD; Mauricio Mann NP ADDENDUM Addendum created by Trevin Quiroz MD on 08/07/2019 2:21:57 PM EST Case discussed with Dr. Gan at 2:21 PM on 08/07/2019. Addendum created by Yusra Singh MD on 08/06/2019 6:41:31 PM EST The ordering physician Daniel Hayes was contacted by phone at 6:38 PM EST, 08/06/2019 with these results. Initial report created on 08/06/2019 6:35:43 PM EST PROCEDURE INFORMATION: Exam: CT Angiography Chest With Contrast Exam date and time: 08/06/2019 5:32 PM Age: 79 years old Clinical history: Shortness of breath; Additional info: Hemoptysis and SOB. R/O pe TECHNIQUE: Imaging protocol: Computed tomographic angiography of the chest with intravenous contrast. 3D rendering: MIP reconstructed images were created and reviewed. Radiation optimization: All CT scans at this facility use at least one of these dose optimization techniques: automated exposure control; mA and/or kV adjustment per patient size (includes targeted exams where dose is matched to clinical indication); or iterative reconstruction. Contrast material: OMNIPAQUE 350; Contrast volume: 64 ml; Contrast route: IV; COMPARISON: OT CXR PORTAP CHEST AP OR PORT 08/06/2019 3:26 PM FINDINGS: Pulmonary arteries: Pulmonary emboli are seen bilaterally, visualized in the right middle and left lower lobes, occlusive and partially occlusive. Emboli are seen in third and fourth degree pulmonary arterial branches. Aorta: Atherosclerotic vascular disease is noted. The thoracic aorta is normal caliber. No aneurysm or dissection is seen. Lungs: Emphysematous changes of the lungs bilaterally. Left lung bases infiltrates may reflect atelectasis or pneumonitis. Correlate with clinical information. The is minimal atelectasis at the posterior right lower lobe. Pleural space: No pleural effusion at the lung bases. There is an apparent [facility] Patient Name:RAIN MULTANI MR: [id number] : 1940 IMPRESSION: 1. Pulmonary emboli visualized in the right middle and left lower lobes. 2. Slightly elevated RV to LV ratio suggests possible right heart failure. 3. Atelectasis versus pneumonitis at the left lung base. Mild atelectasis at the posterior right lung base. 4. Loculated left pleural effusion. 5. Thoracic compression deformities, as above. To contact [facility] with a general question: [facility] - [phone] For direct physician to physician contact: Physician Hotline - [phone] [facility] ([facility] Facility ID #[id number]) <Electronically signed by Yusra Singh MD in OV>08/06/19 184 Dictated by: Yusra Singh MD Dictated Date/Time:08/06/191731 Transcribed Date/Time: 08/06/191731 Copy to: Mal Gan MD; Daniel Copeland MD; Ramakrishna Isbell MD; Mauricio Mann NP ADDENDUM Addendum created by Trevin Qurioz MD on 08/07/2019 2:21:57 PM EST Case discussed with Dr. Gan at 2:21 PM on 08/07/2019. Addendum created by Yusra Singh MD on 08/06/2019 6:41:31 PM EST The ordering physician Daniel Hayes was contacted by phone at 6:38 PM EST, 08/06/2019 with these results. Initial report created on 08/06/2019 6:35:43 PM EST PROCEDURE INFORMATION: Exam: CT Angiography Chest With Contrast Exam date and time: 08/06/2019 5:32 PM Age: 79 years old Clinical history: Shortness of breath; Additional info: Hemoptysis and SOB. R/O pe TECHNIQUE: Imaging protocol: Computed tomographic angiography of the chest with intravenous contrast. 3D rendering: MIP reconstructed images were created and reviewed. Radiation optimization: All CT scans at this facility use at least one of these dose optimization techniques: automated exposure control; mA and/or kV adjustment per patient size (includes targeted exams where dose is matched to clinical indication); or iterative reconstruction. Contrast material: OMNIPAQUE 350; Contrast volume: 64 ml; Contrast route: IV; COMPARISON: OT CXR PORTAP CHEST AP OR PORT 08/06/2019 3:26 PM FINDINGS: Pulmonary arteries: Pulmonary emboli are seen bilaterally, visualized in the right middle and left lower lobes, occlusive and partially occlusive. Emboli are seen in third and fourth degree pulmonary arterial branches. Aorta: Atherosclerotic vascular disease is noted. The thoracic aorta is normal caliber. No aneurysm or dissection is seen. Lungs: Emphysematous changes of the lungs bilaterally. Left lung bases infiltrates may reflect atelectasis or pneumonitis. Correlate with clinical information. The is minimal atelectasis at the posterior right lower lobe. Pleural space: No pleural effusion at the lung bases. There is an apparent [facility] Patient Name:RAIN MULTANI MR: [id number] : 1940 loculated pleural effusion on the left, at the superior aspect of the fissure. Heart: There is a slightly elevated RV to LV ratio of 1.18. No cardiomegaly. No pericardial effusion. Lymph nodes: Mediastinal and hilar lymph nodes are upper limits of normal to mildly enlarged. These are nonspecific. Bones/joints: 13 sets of ribs are noted. The uppermost set of ribs likely reflects cervical ribs at the C7 level. There are compression deformities at the T5, T6, and T12 levels which are age-indeterminate. Previous report from 03/28/2019 described compression fractures at T6 and T7 levels, probably relating to a difference in vertebral body numbering. The central superior compression at T12 was not described in the 03/28/2019 report. IMPRESSION: 1. Pulmonary emboli visualized in the right middle and left lower lobes. 2. Slightly elevated RV to LV ratio suggests possible right heart failure. 3. Atelectasis versus pneumonitis at the left lung base. Mild atelectasis at the posterior right lung base. 4. Loculated left pleural effusion. 5. Thoracic compression deformities, as above. To contact [facility] with a general question: [facility] - [phone] For direct physician to physician contact: Physician Hotline - [phone] [facility] ([facility] Facility ID #[id number]) <Electronically signed by Trevin Quiroz MD in OV>08/07/19 142 Dictated by: Trevin Quiroz MD Dictated Date/Time:08/06/191731 Transcribed Date/Time: 08/06/191731 Copy to: Mal Gan MD; Daniel Copeland MD; Ramakrishna Isbell MD; Mauricio Mann NP PROCEDURE INFORMATION: Exam: CT Angiography Chest With Contrast Exam date and time: 08/06/2019 5:32 PM Age: 79 years old Clinical history: Shortness of breath; Additional info: Hemoptysis and SOB. R/O pe TECHNIQUE: Imaging protocol: Computed tomographic angiography of the chest with intravenous contrast. 3D rendering: MIP reconstructed images were created and reviewed. Radiation optimization: All CT scans at this facility use at least one of these dose optimization techniques: automated exposure control; mA and/or kV adjustment per patient size (includes targeted exams where dose is matched to clinical indication); or iterative reconstruction. Contrast material: OMNIPAQUE 350; Contrast volume: 64 ml; Contrast route: IV; COMPARISON: OT CXR PORTAP CHEST AP OR PORT 08/06/2019 3:26 PM FINDINGS: Pulmonary arteries: Pulmonary emboli are seen bilaterally, visualized in the right middle and left lower lobes, occlusive and partially occlusive. Emboli are seen in third and fourth degree pulmonary arterial branches. Aorta: Atherosclerotic vascular disease is noted. The thoracic aorta is normal caliber. No aneurysm or dissection is seen. Lungs: Emphysematous changes of the lungs bilaterally. Left lung bases infiltrates may reflect atelectasis or pneumonitis. Correlate with clinical information. The is minimal atelectasis at the posterior right lower lobe. Pleural space: No pleural effusion at the lung bases. There is an apparent loculated pleural effusion on the left, at the superior aspect of the fissure. Heart: There is a slightly elevated RV to LV ratio of 1.18. No cardiomegaly. [facility] Patient Name:RAIN MULTANI MR: [id number] : 1940 pericardial effusion. Lymph nodes: Mediastinal and hilar lymph nodes are upper limits of normal to mildly enlarged. These are nonspecific. Bones/joints: 13 sets of ribs are noted. The uppermost set of ribs likely reflects cervical ribs at the C7 level. There are compression deformities at the T5, T6, and T12 levels which are age-indeterminate. Previous report from 03/28/2019 described compression fractures at T6 and T7 levels, probably relating to a difference in vertebral body numbering. The central superior compression at T12 was not described in the 03/28/2019 report. IMPRESSION: 1. Pulmonary emboli visualized in the right middle and left lower lobes. 2. Slightly elevated RV to LV ratio suggests possible right heart failure. 3. Atelectasis versus pneumonitis at the left lung base. Mild atelectasis at the posterior right lung base. 4. Loculated left pleural effusion. 5. Thoracic compression deformities, as above. To contact [facility] with a general question: Operations Center - [phone] For direct physician to physician contact: Physician Hotline - [phone] [facility] ([facility] Facility ID #[id number]) Assess/Plan/Problems-Billing Assessment: 79 y/o male known history of Afib, previous history of GI bleed on Eliquis ( discontinued in 04/2019), colon polyp, presented with acute shortness of breath found to have multiple pulmonary emboli and hemoptysis and RV strain. - Patient Problems (1) Pulmonary embolism Code(s): I26.99 - OTHER PULMONARY EMBOLISM WITHOUT ACUTE COR PULMONALE SNOMED Code(s): 00083505 Comment: - Downgraded from ICU 08/08/19 to tele - Submassive PE burden, right middle lobe and left lower lobe with RV strain - Continue heparin drip; not candidate for TPA due to history of GI bleed 2018, and active hemoptysis - May need IVC filter if unable to adequatley anticoagulate - Dr. Granados following - Continue supportive O2, currently on 5LNC - May need to repeat ECHO in a few days (2) NSTEMI (non-ST elevated myocardial infarction) Current Visit: Yes Code(s): I21.4 - NON-ST ELEVATION (NSTEMI) MYOCARDIAL INFARCTION SNOMED Code(s): 06528847 Comment: - In the presence of submassive PE and right heart strain - Trops peaked at 2.22, continue to trend down but did have chest pain this am that responded to SL NTG - Imdur titrated up to 90mg to start tomorrow - Continue BB and ASA, gentle diuresis today, monitor for response - Continue tele - Not a candidate for cath or stress, continue medical management in light of acute illness and multiple comorbid conditions - Appreciated continued recs by cardiology (3) Hemoptysis Code(s): R04.2 - HEMOPTYSIS SNOMED Code(s): 98119628 Comment: - Was improving then increased again today - Likley r/t PE and possible pulmonary infarct? - Appreciate continue recommendations by pulm (4) History of GI bleed Code(s): Z87.19 - PERSONAL HISTORY OF OTHER DISEASES OF THE DIGESTIVE SYSTEM SNOMED Code(s): 972951242 Comment: - 04/2019 on Eliquis for Afib and plavix for stent to right femoral artery; Eliquis at that time was held, plavix was continued - Colonoscopy did show large polyp and the plan to have polypectomy at [facility] once he was off Plavix, however, given current situation, this may have to be re -evaluated when patient is more stable and able to undergo procedure - GI recommends no Plavix at this time, OK with ASA in case they has to urgently intervene (5) Right leg DVT Code(s): I82.401 - ACUTE EMBOLISM AND THOMBOS UNSP DEEP VEINS OF R LOW EXTREM SNOMED Code(s): 831524046 Comment: - US RLE showing DVT in the right profunda femorus - Continue heparin drip for now, as he needs this for NSTEMI as well - IVC filter may still be an option moving forward, especially if patient ends up having GI bleeding (6) Atrial fibrillation Code(s): I48.91 - UNSPECIFIED ATRIAL FIBRILLATION SNOMED Code(s): 96995436 Comment: - Continue BB for rate control - No oral AC at this time, continue heparin gtt - Continue tele (7) COPD (chronic obstructive pulmonary disease) Current Visit: No Code(s): J44.9 - CHRONIC OBSTRUCTIVE PULMONARY DISEASE, UNSPECIFIED SNOMED Code(s): 39212962 Comment: - Continue home inhaler and neb treatments - Wheeze improved, continue solumedrol IV 40 mgIV q6hrs (8) HTN (hypertension) Code(s): I10 - ESSENTIAL (PRIMARY) HYPERTENSION SNOMED Code(s): 63447229 Comment: - Stable on metoprolol 50 mg bid (9) Peripheral arterial disease Code(s): I73.9 - PERIPHERAL VASCULAR DISEASE, UNSPECIFIED SNOMED Code(s): 501107714 Comment: - s/p stent placement by [facility] Hunter - Per note from Dr. Colon on 08/08, surgeon from [facility] suggested to resume antiplatelet as soon as he is stable. Agreed that given his hempotysis to hold off on antiplatelet. He recommend baby Aspirin if unable to resume plavix which he is on (10) DVT prophylaxis Code(s): Z29.9 - ENCOUNTER FOR PROPHYLACTIC MEASURES, UNSPECIFIED SNOMED Code( s): 958321929 Comment: - Heparin gtt (11) Full code status Code(s): Z78.9 - OTHER SPECIFIED HEALTH STATUS SNOMED Code(s): 991850180 Comment: - Per note 08/07, patient remains full code Status and Disposition: Inpatient, guarded. Dispo pending.
[2019-08-11] MEDS: Benzocaine/Menthol LOZ* 1 LOZENGE PO PRN ×2 (16:14→21:45)
[2019-08-11] MEDS: Atorvastatin* 80 MG TAB PO SCH (17:14)
[2019-08-11] MEDS: Polyethylene Glycol 3350* 17 GM PACKET PO PRN (20:19)
[2019-08-12] MEDS: Albuterol/Ipratropium NEB.SOL* Albuterol 2.5 MG/Ipratropium 0.5 MG 3 ML INH PRN (03:14)
[2019-08-12 05:05] LABS: ABS Lymphocytes 0.2 10^3/ul (1.0-4.8); ABS Monocytes 0.5 10^3/ul (0-0.8); ABS Neutrophils 14.1 10^3/ul (1.5-7.7); Hematocrit 27 % (42-52); Hemoglobin 8.8 g/dL (14.0-18.0); Lymphocyte % 1.3 %; Mean Corpuscular HGB Conc 32 g/dL (31-36); Mean Corpuscular Hemoglobin 27 pg (27-31); Mean Corpuscular Volume 83 fL (80-94); Mean Platelet Volume 7.4 fL (7.4-10.4); Platelet Count 247 10^3/uL (150-450); Red Blood Count 3.28 10^6 /uL (4.18-5.48); Red Cell Distribution Width 19 % (10-15); White Blood Count 14.8 10^3/uL (3.5-10.8)
[2019-08-12] MEDS: methylPREDNISolone SOD 40 MG* 1 ML VIAL IV SCH ×4 (05:11→23:41)
[2019-08-12] MEDS: ALPRAZolam TAB* 0.25 MG PO PRN (05:12)
[2019-08-12 05:19] LABS: Albumin 2.7 g/dL (3.2-5.2); BUN/Creatinine Ratio 34.8 (8-20); Calcium 9.5 mg/dL (8.6-10.3); EGFR Non-African American 79.4 (>60); Globulin 2.7 g/dL (2-4); Potassium 4.4 mmol/L (3.5-5.0); Total Bilirubin 0.4 mg/dL (0.2-1.0); Total Protein 5.4 g/dL (6.4-8.9)
[2019-08-12] MEDS: Cefepime 2 GM in Dextrose(*) 2 GM/50 ML BAG IV SCH ×3 (08:07→23:37)
[2019-08-12] MEDS: Tiotropium Brom/Olodaterol MDI INH SCH ×2 (08:28→19:56)
[2019-08-12] MEDS: Pantoprazole TAB * 40 MG TAB PO SCH ×2 (08:59→20:39)
[2019-08-12] MEDS: Polyethylene Glycol 3350* 17 GM PACKET PO PRN (08:59)
[2019-08-12] MEDS: guaiFENesin ER TAB 600 MG PO SCH ×2 (08:59→20:39)
[2019-08-12] MEDS: Ferrous Sulfate TAB* 325 MG PO SCH ×2 (08:59→20:39)
[2019-08-12] MEDS: Aspirin 81 mg CHEW TAB* 81 MG TAB.CHEW PO SCH (08:59)
[2019-08-12] MEDS: Cyanocobalamin TAB* 500 MCG PO SCH (08:59)
[2019-08-12] MEDS: Isosorbide Mononitrate ER TAB* 30 MG PO SCH (08:59)
[2019-08-12] MEDS: Metoprolol Tartrate TAB* 50 mg PO SCH ×2 (08:59→20:39)
[2019-08-12] MEDS: Azithromycin 500 mg/250 ml NS 500 MG/250 ML BAG IVPB SCH (09:07)
[2019-08-12] MEDS: Albuterol/Ipratropium NEB.SOL* Albuterol 2.5 MG/Ipratropium 0.5 MG 3 ML INH SCH ×4 (11:03→23:33)
[2019-08-12] MEDS: Atorvastatin* 80 MG TAB PO SCH (16:15)
[2019-08-12] MEDS: Heparin DRIP 25,000 UNITS(*) 25,000 UNITS/500 ML BAG IV SCH (16:15)
--- NOTE | 2019-08-12 18:19 | PN ---
Subjective Date of Service: 08/12/19 Interval History: Patient seen and examined with family at bedside. Dr. Granados present for visit in the afternoon when patient's present. Per notes, patient had increased wheezing overnight and required nebs, he does appear tired today. He denies acute SOB, no chest pain, no fevers or chills. Discussed POC at length with family. Past Medical History: Unchanged from Admission Objective Active Medications: Acetaminophen (Tylenol Tab*) 650 mg PO Q4H PRN PRN Reason: MILD PAIN or TEMP > 100.4 Last Admin: 08/10/19 22:44 Dose: 650 mg Hydrocodone Bitart/Acetaminophen ([place] 5-325 Tab*) 1 tab PO Q6H PRN PRN Reason: PAIN - MODERATE Albuterol/Ipratropium (Duoneb (Albuterol 2.5 Mg/Ipratropium 0.5 Mg)) 1 neb INH [id number] AWAKE [facility] Last Admin: 08/12/19 16:15 Dose: 1 neb Alprazolam (Xanax Tab*) 0.25 mg PO Q8H PRN PRN Reason: ANXIETY Last Admin: 08/12/19 05:12 Dose: 0.25 mg Aspirin (Aspirin 81 Mg Chew Tab*) 81 mg PO DAILY [facility] Last Admin: 08/12/19 08:59 Dose: 81 mg Atorvastatin Calcium (Lipitor*) 80 mg PO 1700 [facility] Last Admin: 08/12/19 16:15 Dose: 80 mg Bisacodyl (Dulcolax Supp*) 10 mg NE DAILY PRN PRN Reason: CONSTIPATION Cyanocobalamin (Vitamin B12 Tab*) 1,000 mcg PO DAILY [facility] Last Admin: 08/12/19 08:59 Dose: 1,000 mcg Ferrous Sulfate (Ferrous Sulfate Tab*) 325 mg PO BID [facility] Last Admin: 08/12/19 08:59 Dose: 325 mg Guaifenesin (Mucinex*) 600 mg PO BID [facility] Last Admin: 08/12/19 08:59 Dose: 600 mg Heparin Sodium (Porcine) (Heparin Vial(*)) 0 units IV .PER PROTOCOL [facility] Heparin Sodium/Dextrose (Heparin Drip 25,000 Units(*)) 25,000 units in 500 mls @ 0 mls/hr IV PER RATE [facility]; Protocol Last Admin: 08/12/19 16:15 Dose: 18 mls/hr Cefepime HCl (Maxipime 2 Gm In Dextrose Duplex (*)) 2 gm in 50 mls @ 100 mls/ hr IV 0000,0800,1600 [facility] Last Admin: 08/12/19 16:15 Dose: 100 mls/hr Azithromycin (Zithromax 500 Mg/250 Ml) 500 mg in 250 mls @ 250 mls/hr IVPB Q24H [facility] Last Admin: 08/12/19 09:07 Dose: 250 mls/hr Isosorbide Mononitrate (Imdur Er Tab*) 90 mg PO DAILY [facility] Last Admin: 08/12/19 08:59 Dose: 90 mg Methylprednisolone Sodium Succinate (Solu-Medrol 40 Mg) 40 mg IV Q6H [facility] Last Admin: 08/12/19 16:15 Dose: 40 mg Metoprolol Tartrate (Lopressor Tab*) 50 mg PO BID [facility] Last Admin: 08/12/19 08:59 Dose: 50 mg Nitroglycerin (Nitroglycerin Tab 0.4 Mg*) 0.4 mg SL Q5M PRN PRN Reason: ANGINA Last Admin: 08/11/19 05:52 Dose: 0.4 mg Ondansetron HCl (Zofran Inj*) 4 mg IV Q4H PRN PRN Reason: NAUSEA/VOMITING Last Admin: 08/10/19 10:22 Dose: 4 mg Pantoprazole Sodium (Protonix Tab*) 40 mg PO BID [facility] Last Admin: 08/12/19 08:59 Dose: 40 mg Polyethylene Glycol/Electrolytes (Miralax*) 17 gm PO 0800,2100 PRN PRN Reason: CONSTIPATION Last Admin: 08/12/19 08:59 Dose: 17 gm Throat Lozenges (Chloraseptic Diana*) 1 diana PO Q6H PRN PRN Reason: SORE THROAT Last Admin: 08/11/19 21:45 Dose: 1 diana Tiotropium [place]/Olodaterol (Stiolto Respimat Inh [place] (60 Puff)) 1 puff INH BID [facility] Last Admin: 08/12/19 08:28 Dose: 1 puff Vital Signs - 8 hr 08/12/19 08/12/19 12:00 17:25 Temperature 98.0 F 97.9 F Pulse Rate 80 80 Respiratory 20 18 Rate Blood Pressure 132/45 142/49 (mmHg) O2 Sat by Pulse 96 97 Oximetry Oxygen Devices in Use Now: Nasal Cannula Appearance: alert, ill appearing Eyes: PERRLA Ears/Nose/Mouth/Throat: NL Teeth, Lips, Gums Neck: NL Appearance and Movements; NL JVP Respiratory: Symmetrical Chest Expansion and Respiratory Effort, - - course, wheezy, ronchorous Cardiovascular: NL Sounds; No Murmurs; No JVD, No Edema, - - irregular Extremities: No Edema Skin: No Rash or Ulcers Neurological: Alert and Oriented x 3, - - general weakness Nutrition: Taking PO's Result Diagrams: 08/12/19 04:40 08/12/19 04:40 Microbiology and Other Data: Microbiology 08/06/19 21:40 Nasal Screen MRSA (PCR) - Final Nasal Mrsa Not Detected Diagnostic Imaging: Patient Name: RAIN MULTANI Medical Record#: [id number] Ordering Physician: Daniel Copeland MD Acct.#: [id number] : 1940 Age: 79 Sex: M Location: [facility] Exam Date: 08/06/191546 ADM Status: ADM IN Order Information: CTA CHEST Accession Number: [id number] CPT: 17744 ADDENDUM Addendum created by Yusra Singh MD on 08/06/2019 6:41:31 PM EST The ordering physician Daniel Hayes was contacted by phone at 6:38 PM EST, 08/06/2019 with these results. Initial report created on 08/06/2019 6:35:43 PM EST PROCEDURE INFORMATION: Exam: CT Angiography Chest With Contrast Exam date and time: 08/06/2019 5:32 PM Age: 79 years old Clinical history: Shortness of breath; Additional info: Hemoptysis and SOB. R/O pe TECHNIQUE: Imaging protocol: Computed tomographic angiography of the chest with intravenous contrast. 3D rendering: MIP reconstructed images were created and reviewed. Radiation optimization: All CT scans at this facility use at least one of these dose optimization techniques: automated exposure control; mA and/or kV adjustment per patient size (includes targeted exams where dose is matched to clinical indication); or iterative reconstruction. Contrast material: OMNIPAQUE 350; Contrast volume: 64 ml; Contrast route: IV; COMPARISON: OT CXR PORTAP CHEST AP OR PORT 08/06/2019 3:26 PM FINDINGS: Pulmonary arteries: Pulmonary emboli are seen bilaterally, visualized in the right middle and left lower lobes, occlusive and partially occlusive. Emboli are seen in third and fourth degree pulmonary arterial branches. Aorta: Atherosclerotic vascular disease is noted. The thoracic aorta is normal caliber. No aneurysm or dissection is seen. Lungs: Emphysematous changes of the lungs bilaterally. Left lung bases infiltrates may reflect atelectasis or pneumonitis. Correlate with clinical information. The is minimal atelectasis at the posterior right lower lobe. Pleural space: No pleural effusion at the lung bases. There is an apparent loculated pleural effusion on the left, at the superior aspect of the fissure. Heart: There is a slightly elevated RV to LV ratio of 1.18. No cardiomegaly. No pericardial effusion. Lymph nodes: Mediastinal and hilar lymph nodes are upper limits of normal to mildly enlarged. These are nonspecific. Bones/joints: 13 sets of ribs are noted. The uppermost set of ribs likely reflects cervical ribs at the C7 level. There are compression deformities at the T5, T6, and T12 levels which are age-indeterminate. Previous report from 03/28/2019 described compression fractures at T6 and T7 levels, probably relating to a difference in vertebral body numbering. The central superior compression at T12 was not described in the 03/28/2019 report. [facility] Patient Name:RAIN MULTANI MR: [id number] : 1940 IMPRESSION: 1. Pulmonary emboli visualized in the right middle and left lower lobes. 2. Slightly elevated RV to LV ratio suggests possible right heart failure. 3. Atelectasis versus pneumonitis at the left lung base. Mild atelectasis at the posterior right lung base. 4. Loculated left pleural effusion. 5. Thoracic compression deformities, as above. To contact [facility] with a general question: [facility] - [phone] For direct physician to physician contact: Physician Hotline - [phone] [facility] ([facility] Facility ID #[id number]) <Electronically signed by Yusra Singh MD in OV>08/06/19 184 Dictated by: Yusra Singh MD Dictated Date/Time:08/06/19 173 Transcribed Date/Time: 08/06/191731 Copy to: Mal Gan MD; Daniel Copeland MD; Ramakrishna Isbell MD; Mauricio Mann NP ADDENDUM Addendum created by Trevin Quiroz MD on 08/07/2019 2:21:57 PM EST Case discussed with Dr. Gan at 2:21 PM on 08/07/2019. Addendum created by Yusra Singh MD on 08/06/2019 6:41:31 PM EST The ordering physician Daniel Hayes was contacted by phone at 6:38 PM EST, 08/06/2019 with these results. Initial report created on 08/06/2019 6:35:43 PM EST PROCEDURE INFORMATION: Exam: CT Angiography Chest With Contrast Exam date and time: 08/06/2019 5:32 PM Age: 79 years old Clinical history: Shortness of breath; Additional info: Hemoptysis and SOB. R/O pe TECHNIQUE: Imaging protocol: Computed tomographic angiography of the chest with intravenous contrast. 3D rendering: MIP reconstructed images were created and reviewed. Radiation optimization: All CT scans at this facility use at least one of these dose optimization techniques: automated exposure control; mA and/or kV adjustment per patient size (includes targeted exams where dose is matched to clinical indication); or iterative reconstruction. Contrast material: OMNIPAQUE 350; Contrast volume: 64 ml; Contrast route: IV; COMPARISON: OT CXR PORTAP CHEST AP OR PORT 08/06/2019 3:26 PM FINDINGS: Pulmonary arteries: Pulmonary emboli are seen bilaterally, visualized in the right middle and left lower lobes, occlusive and partially occlusive. Emboli are seen in third and fourth degree pulmonary arterial branches. Aorta: Atherosclerotic vascular disease is noted. The thoracic aorta is normal caliber. No aneurysm or dissection is seen. Lungs: Emphysematous changes of the lungs bilaterally. Left lung bases infiltrates may reflect atelectasis or pneumonitis. Correlate with clinical information. The is minimal atelectasis at the posterior right lower lobe. Pleural space: No pleural effusion at the lung bases. There is an apparent [facility] Patient Name:RAIN MULTANI MR: [id number] : 1940 IMPRESSION: 1. Pulmonary emboli visualized in the right middle and left lower lobes. 2. Slightly elevated RV to LV ratio suggests possible right heart failure. 3. Atelectasis versus pneumonitis at the left lung base. Mild atelectasis at the posterior right lung base. 4. Loculated left pleural effusion. 5. Thoracic compression deformities, as above. To contact [facility] with a general question: [facility] - [phone] For direct physician to physician contact: Physician Hotline - [phone] [facility] ([facility] Facility ID #[id number]) <Electronically signed by Yusra Singh MD in OV>08/06/19 184 Dictated by: Yusra Singh MD Dictated Date/Time:08/06/191731 Transcribed Date/Time: 08/06/191731 Copy to: Mal Gan MD; Daniel Copeland MD; Ramakrishna Isbell MD; Mauricio Mann NP ADDENDUM Addendum created by Trevin Quiroz MD on 08/07/2019 2:21:57 PM EST Case discussed with Dr. Gan at 2:21 PM on 08/07/2019. Addendum created by Yusra Singh MD on 08/06/2019 6:41:31 PM EST The ordering physician Daniel Hayes was contacted by phone at 6:38 PM EST, 08/06/2019 with these results. Initial report created on 08/06/2019 6:35:43 PM EST PROCEDURE INFORMATION: Exam: CT Angiography Chest With Contrast Exam date and time: 08/06/2019 5:32 PM Age: 79 years old Clinical history: Shortness of breath; Additional info: Hemoptysis and SOB. R/O pe TECHNIQUE: Imaging protocol: Computed tomographic angiography of the chest with intravenous contrast. 3D rendering: MIP reconstructed images were created and reviewed. Radiation optimization: All CT scans at this facility use at least one of these dose optimization techniques: automated exposure control; mA and/or kV adjustment per patient size (includes targeted exams where dose is matched to clinical indication); or iterative reconstruction. Contrast material: OMNIPAQUE 350; Contrast volume: 64 ml; Contrast route: IV; COMPARISON: OT CXR PORTAP CHEST AP OR PORT 08/06/2019 3:26 PM FINDINGS: Pulmonary arteries: Pulmonary emboli are seen bilaterally, visualized in the right middle and left lower lobes, occlusive and partially occlusive. Emboli are seen in third and fourth degree pulmonary arterial branches. Aorta: Atherosclerotic vascular disease is noted. The thoracic aorta is normal caliber. No aneurysm or dissection is seen. Lungs: Emphysematous changes of the lungs bilaterally. Left lung bases infiltrates may reflect atelectasis or pneumonitis. Correlate with clinical information. The is minimal atelectasis at the posterior right lower lobe. Pleural space: No pleural effusion at the lung bases. There is an apparent [facility] Patient Name:RAIN MULTANI MR: [id number] : 1940 loculated pleural effusion on the left, at the superior aspect of the fissure. Heart: There is a slightly elevated RV to LV ratio of 1.18. No cardiomegaly. No pericardial effusion. Lymph nodes: Mediastinal and hilar lymph nodes are upper limits of normal to mildly enlarged. These are nonspecific. Bones/joints: 13 sets of ribs are noted. The uppermost set of ribs likely reflects cervical ribs at the C7 level. There are compression deformities at the T5, T6, and T12 levels which are age-indeterminate. Previous report from 03/28/2019 described compression fractures at T6 and T7 levels, probably relating to a difference in vertebral body numbering. The central superior compression at T12 was not described in the 03/28/2019 report. IMPRESSION: 1. Pulmonary emboli visualized in the right middle and left lower lobes. 2. Slightly elevated RV to LV ratio suggests possible right heart failure. 3. Atelectasis versus pneumonitis at the left lung base. Mild atelectasis at the posterior right lung base. 4. Loculated left pleural effusion. 5. Thoracic compression deformities, as above. To contact [facility] with a general question: Operations [facility] - [phone] For direct physician to physician contact: Physician Hotline - [phone] [facility] ([facility] Facility ID #[id number]) <Electronically signed by Trevin Quiroz MD in OV>08/07/191420 Dictated by: Trevin Quiroz MD Dictated Date/Time:08/06/191731 Transcribed Date/Time: 08/06/191731 Copy to: Mal Gan MD; Daniel Copeland MD; Ramakrishna Isbell MD; Mauricio Mann NP PROCEDURE INFORMATION: Exam: CT Angiography Chest With Contrast Exam date and time: 08/06/2019 5:32 PM Age: 79 years old Clinical history: Shortness of breath; Additional info: Hemoptysis and SOB. R/O pe TECHNIQUE: Imaging protocol: Computed tomographic angiography of the chest with intravenous contrast. 3D rendering: MIP reconstructed images were created and reviewed. Radiation optimization: All CT scans at this facility use at least one of these dose optimization techniques: automated exposure control; mA and/or kV adjustment per patient size (includes targeted exams where dose is matched to clinical indication); or iterative reconstruction. Contrast material: OMNIPAQUE 350; Contrast volume: 64 ml; Contrast route: IV; COMPARISON: OT CXR PORTAP CHEST AP OR PORT 08/06/2019 3:26 PM FINDINGS: Pulmonary arteries: Pulmonary emboli are seen bilaterally, visualized in the right middle and left lower lobes, occlusive and partially occlusive. Emboli are seen in third and fourth degree pulmonary arterial branches. Aorta: Atherosclerotic vascular disease is noted. The thoracic aorta is normal caliber. No aneurysm or dissection is seen. Lungs: Emphysematous changes of the lungs bilaterally. Left lung bases infiltrates may reflect atelectasis or pneumonitis. Correlate with clinical information. The is minimal atelectasis at the posterior right lower lobe. Pleural space: No pleural effusion at the lung bases. There is an apparent loculated pleural effusion on the left, at the superior aspect of the fissure. Heart: There is a slightly elevated RV to LV ratio of 1.18. No cardiomegaly. [facility] Patient Name:RAIN MULTANI MR: [id number] : 1940 pericardial effusion. Lymph nodes: Mediastinal and hilar lymph nodes are upper limits of normal to mildly enlarged. These are nonspecific. Bones/joints: 13 sets of ribs are noted. The uppermost set of ribs likely reflects cervical ribs at the C7 level. There are compression deformities at the T5, T6, and T12 levels which are age-indeterminate. Previous report from 03/28/2019 described compression fractures at T6 and T7 levels, probably relating to a difference in vertebral body numbering. The central superior compression at T12 was not described in the 03/28/2019 report. IMPRESSION: 1. Pulmonary emboli visualized in the right middle and left lower lobes. 2. Slightly elevated RV to LV ratio suggests possible right heart failure. 3. Atelectasis versus pneumonitis at the left lung base. Mild atelectasis at the posterior right lung base. 4. Loculated left pleural effusion. 5. Thoracic compression deformities, as above. To contact [facility] with a general question: Operations Center - [phone] For direct physician to physician contact: Physician Hotline - [phone] [facility] ([facility] Facility ID #[id number]) Assess/Plan/Problems-Billing Assessment: 79 y/o male known history of Afib, previous history of GI bleed on Eliquis ( discontinued in 04/2019), colon polyp, presented with acute shortness of breath found to have multiple pulmonary emboli and hemoptysis and RV strain. - Patient Problems (1) Pulmonary embolism Code(s): I26.99 - OTHER PULMONARY EMBOLISM WITHOUT ACUTE COR PULMONALE SNOMED Code(s): 48705269 Comment: - Downgraded from ICU 08/08/19 to tele - Submassive PE burden, right middle lobe and left lower lobe with RV strain - Continue heparin drip; not candidate for TPA due to history of GI bleed 2018, and active hemoptysis - Consider changing to lovenox tomorrow, explained risk of bleeding to family and they accept - May need IVC filter if unable to adequatley anticoagulate - Dr. Granados following - Continue supportive O2, currently on 5LNC - May need to repeat ECHO in a few days (2) NSTEMI (non-ST elevated myocardial infarction) Current Visit: Yes Code(s): I21.4 - NON-ST ELEVATION (NSTEMI) MYOCARDIAL INFARCTION SNOMED Code(s): 44340709 Comment: - In the presence of submassive PE and right heart strain - Trops peaked at 2.22 and trended down - Chest pain free today - Imdur titrated up to 90mg as per cardio - Continue BB and ASA, gentle diuresis today, monitor for response - Continue tele - Not a candidate for cath or stress, continue medical management in light of acute illness and multiple comorbid conditions - Appreciated continued recs by cardiology (3) Hemoptysis Code(s): R04.2 - HEMOPTYSIS SNOMED Code(s): 92080751 Comment: - Waxing and waning, improved againt today - Likley r/t PE and possible pulmonary infarct? - Supportive care, pulm following (4) History of GI bleed Code(s): Z87.19 - PERSONAL HISTORY OF OTHER DISEASES OF THE DIGESTIVE SYSTEM SNOMED Code(s): 888614561 Comment: - 04/2019 on Eliquis for Afib and plavix for stent to right femoral artery; Eliquis at that time was held, plavix was continued - Colonoscopy did show large polyp and the plan to have polypectomy at [facility] once he was off Plavix, however, given current situation, this may have to be re -evaluated when patient is more stable and able to undergo procedure - GI recommends no Plavix at this time, OK with ASA in case they has to urgently intervene (5) Right leg DVT Code(s): I82.401 - ACUTE EMBOLISM AND THOMBOS UNSP DEEP VEINS OF R LOW EXTREM SNOMED Code(s): 414296268 Comment: - US RLE showing DVT in the right profunda femorus - Continue heparin drip for now, as he needs this for NSTEMI as well - IVC filter may still be an option moving forward, especially if patient ends up having GI bleeding (6) Atrial fibrillation Code(s): I48.91 - UNSPECIFIED ATRIAL FIBRILLATION SNOMED Code(s): 42646797 Comment: - Continue BB for rate control - No oral AC at this time, continue heparin gtt and consider changing to lovenox tomorrow - Continue tele (7) COPD (chronic obstructive pulmonary disease) Current Visit: No Code(s): J44.9 - CHRONIC OBSTRUCTIVE PULMONARY DISEASE, UNSPECIFIED SNOMED Code(s): 25563056 Comment: - Continue home inhaler and neb treatments - Very course sounding today, change to Q4h duonebs with metaneb - Already on cefepime and azithro, steroids not helping, will DC - Repeated CXR, new infiltrates noted, but patient is afebrile - ABG ordered, PO2 low, no CO2 retention, continue to titrate O2 (8) HTN (hypertension) Code(s): I10 - ESSENTIAL (PRIMARY) HYPERTENSION SNOMED Code(s): 32634356 Comment: - Stable on metoprolol 50 mg bid (9) Peripheral arterial disease Code(s): I73.9 - PERIPHERAL VASCULAR DISEASE, UNSPECIFIED SNOMED Code(s): 914795310 Comment: - s/p stent placement by [facility] - Per note from Dr. Colon on 08/08, surgeon from [place] suggested to resume antiplatelet as soon as he is stable. Agreed that given his hempotysis to hold off on antiplatelet. He recommend baby Aspirin if unable to resume plavix which he is on (10) DVT prophylaxis Code(s): Z29.9 - ENCOUNTER FOR PROPHYLACTIC MEASURES, UNSPECIFIED SNOMED Code( s): 998010204 Comment: - Heparin gtt for now (11) Full code status Code(s): Z78.9 - OTHER SPECIFIED HEALTH STATUS SNOMED Code(s): 353855769 Comment: - Per note 08/07, patient remains full code Status and Disposition: Inpatient, guarded. Dispo pending, will need rehab
--- NOTE | 2019-08-12 18:54 | PN ---
Progress Note - Progress Note Date of Service: 08/12/19 - Pulm f/u note Note: Pt seen and examined at bedside. Pt reports feeling worse today, much tired. Denies much change in breathing. Has intermittent episodes of hemoptysis. + cough Active Medications Generic Name Dose Route Start Last Admin Trade Name Freq PRN Reason Stop Dose Admin Acetaminophen 650 mg 08/06/19 20:16 08/10/19 22:44 Tylenol Tab* PO 650 mg Q4H PRN Administration MILD PAIN or TEMP > 100.4 Hydrocodone Bitart/Acetaminophen 1 tab 08/06/19 20:15 [place] 5-325 Tab* PO Q6H PRN PAIN - MODERATE Albuterol/Ipratropium 1 neb 08/12/19 11:00 08/12/19 16:15 Duoneb (Albuterol 2.5 Mg/Ipratropium 0.5 Mg) INH 1 neb [id number] ABDOUL Administration Alprazolam 0.25 mg 08/08/19 15:57 08/12/19 05:12 Xanax Tab* PO 0.25 mg Q8H PRN Administration ANXIETY Aspirin 81 mg 08/12/19 09:00 08/12/19 08:59 Aspirin 81 Mg Chew Tab* PO 81 mg DAILY ABDOUL Administration Atorvastatin Calcium 80 mg 08/11/19 18:00 08/12/19 16:15 Lipitor* PO 80 mg 1700 ABDOUL Administration Bisacodyl 10 mg 08/09/19 11:24 Dulcolax Supp* [place] DAILY PRN CONSTIPATION Cyanocobalamin 1,000 mcg 08/09/19 09:00 08/12/19 08:59 Vitamin B12 Tab* PO 1,000 mcg DAILY ABDOUL Administration Ferrous Sulfate 325 mg 08/08/19 21:00 08/12/19 08:59 Ferrous Sulfate Tab* PO 325 mg BID ABDOUL Administration Guaifenesin 600 mg 08/06/19 21:00 08/12/19 08:59 Mucinex* PO 600 mg BID ABDOUL Administration Heparin Sodium (Porcine) 0 units 08/06/19 20:30 Heparin Vial(*) IV .PER PROTOCOL [facility] Heparin Sodium/Dextrose 25,000 units in 500 mls @ 0 mls/hr 08/06/19 18:45 16:15 Heparin Drip 25,000 Units(*) IV 18 mls/hr PER RATE ABDOUL Administration Protocol Per Protocol Cefepime HCl 2 gm in 50 mls @ 100 mls/hr 08/07/19 16:00 08/12/19 16:15 Maxipime 2 Gm In Dextrose Duplex (*) IV 100 mls/hr 0000,0800,1600 ABDOUL Administration Azithromycin 500 mg in 250 mls @ 250 mls/hr 08/09/19 10:00 08/12/19 09:07 Zithromax 500 Mg/250 Ml IVPB 250 mls/hr Q24H ABDOUL Administration Isosorbide Mononitrate 90 mg 08/12/19 09:00 08/12/19 08:59 Imdur Er Tab* PO 90 mg DAILY ABDOUL Administration Methylprednisolone Sodium Succinate 40 mg 08/10/19 17:00 08/12/19 16:15 Solu-Medrol 40 Mg IV 40 mg Q6H ABDOUL Administration Metoprolol Tartrate 50 mg 08/10/19 17:00 08/12/19 08:59 Lopressor Tab* PO 50 mg BID ABDOUL Administration Nitroglycerin 0.4 mg 08/10/19 09:54 08/11/19 05:52 Nitroglycerin Tab 0.4 Mg* SL 0.4 mg Q5M PRN Administration ANGINA Ondansetron HCl 4 mg 08/06/19 20:16 08/10/19 10:22 Zofran Inj* IV 4 mg Q4H PRN Administration NAUSEA/VOMITING Pantoprazole Sodium 40 mg 08/10/19 21:00 08/12/19 08:59 Protonix Tab* PO 40 mg BID ABDOUL Administration Polyethylene Glycol/Electrolytes 17 gm 08/09/19 11:25 08/12/19 08:59 Miralax* PO 17 gm 0800,2100 PRN Administration CONSTIPATION Throat Lozenges 1 diana 08/11/19 16:01 08/11/19 21:45 Chloraseptic Diana* PO 1 diana Q6H PRN Administration SORE THROAT Tiotropium [place]/Olodaterol 1 puff 08/06/19 21:00 08/12/19 08:28 Stiolto Respimat Inh [place] (60 Puff) INH 1 puff BID ABDOUL Administration Vital Signs Temp Pulse Resp BP Pulse Ox 97.9 F 80 18 142/49 97 08/12/19 17:25 08/12/19 17:25 08/12/19 17:25 08/12/19 17:25 08/12/19 17:25 O/E: Pt in NAD, looks weak and tired HEENT: PERRLA Lungs: Diminished air entry b/l, crackles+ CVS: S1, S2+ Abd: Soft, BS+ Ext: Normal ROM Skin: No rash Neuro: No focal deficits Laboratory Results - last 24 hr 08/11/19 08/12/19 08/12/19 21:52 04:40 04:40 WBC 14.8 H RBC 3.28 L Hgb 8.8 L Hct 27 L MCV 83 MCH 27 MCHC 32 RDW 19 H Plt Count 247 MPV 7.4 Neut % (Auto) 95.3 Lymph % (Auto) 1.3 [place] % (Auto) 3.3 Eos % (Auto) 0.0 Baso % (Auto) 0.1 Absolute Neuts (auto) 14.1 H Absolute Lymphs (auto) 0.2 L Absolute Monos (auto) 0.5 Absolute Eos (auto) 0.0 Absolute Basos (auto) 0.0 Absolute Nucleated RBC 0.0 Nucleated RBC % 0.0 APTT 74.4 H ABG pH ABG pCO2 ABG pO2 ABG HCO3 ABG O2 Saturation ABG Base Excess Sodium 136 Potassium 4.4 Chloride 106 Carbon Dioxide 28 Anion Gap 2 BUN 32 H Creatinine 0.92 Est GFR ( Amer) 96.0 Est GFR (Non-Af Amer) 79.4 BUN/Creatinine Ratio 34.8 H Glucose 128 H Calcium 9.5 Total Bilirubin 0.40 AST 38 ALT 48 Alkaline Phosphatase 48 Total Protein 5.4 L Albumin 2.7 L Globulin 2.7 Albumin/Globulin Ratio 1.0 08/12/19 10:42 WBC RBC Hgb Hct MCV MCH MCHC RDW Plt Count MPV Neut % (Auto) Lymph % (Auto) [place] % (Auto) Eos % (Auto) Baso % (Auto) Absolute Neuts (auto) Absolute Lymphs (auto) Absolute Monos (auto) Absolute Eos (auto) Absolute Basos (auto) Absolute Nucleated RBC Nucleated RBC % APTT ABG pH 7.37 ABG pCO2 41 ABG pO2 75 L ABG HCO3 23.7 ABG O2 Saturation 98.2 H ABG Base Excess -1.5 Sodium Potassium Chloride Carbon Dioxide Anion Gap BUN Creatinine Est GFR ( Amer) Est GFR (Non-Af Amer) BUN/Creatinine Ratio Glucose Calcium Total Bilirubin AST ALT Alkaline Phosphatase Total Protein Albumin Globulin Albumin/Globulin Ratio I/R: 79 y/o male known history of Afib, previous history of GI bleed on Eliquis (discontinued in 04/2019), colon polyp, presented with acute shortness of breath found to have b/l submassive PE with signficant clot burden, pl effusion, and hemoptysis. admitted to ICU due to RV strain (not candidate for TPA given hemoptysis and GI bleed) placed on heparin drip Pt had complicated course with NSTEMI pt continues to have episodes of hemoptysis Will c/w Heparin drip unless significant bleeding given significant clot burden. Had discussion with family, will switch to Lovenox tomorrow Might need evaluation for IVC filter if cant be anticoagulated FiO2 requirements have remianed stable He has cough and hemoptysis. Will try metanebs Pt with intermittent chest pains, not stable for cath at this time, to be considered as out pt continues on abx, steroids, will taper steroids GERD precautions and PPI CXR and ABG were reviewed CXR showed mild congestion and b/l effusions No signficant hypoxia noted on ABG, no hypercapnia c/w O2 Overall prognosis guarded to poor given multiple comorbidities Had long discussion with family at bedside, regarding plan of care, multiple issues and no significant improvement D/w Melania Manzano
[2019-08-13] MEDS: Albuterol/Ipratropium NEB.SOL* Albuterol 2.5 MG/Ipratropium 0.5 MG 3 ML INH SCH ×6 (03:19→23:05)
[2019-08-13] MEDS: Benzocaine/Menthol LOZ* 1 LOZENGE PO PRN (04:43)
[2019-08-13] MEDS: methylPREDNISolone SOD 40 MG* 1 ML VIAL IV SCH ×3 (04:43→22:16)
[2019-08-13 06:36] LABS: ABS Lymphocytes 0.2 10^3/ul (1.0-4.8); ABS Monocytes 0.5 10^3/ul (0-0.8); ABS Neutrophils 14.3 10^3/ul (1.5-7.7); Hematocrit 26 % (42-52); Hemoglobin 8.3 g/dL (14.0-18.0); Lymphocyte % 1.4 %; Mean Corpuscular HGB Conc 33 g/dL (31-36); Mean Corpuscular Hemoglobin 27 pg (27-31); Mean Corpuscular Volume 83 fL (80-94); Mean Platelet Volume 7.5 fL (7.4-10.4); Platelet Count 280 10^3/uL (150-450); Red Blood Count 3.08 10^6 /uL (4.18-5.48); Red Cell Distribution Width 20 % (10-15); White Blood Count 15.1 10^3/uL (3.5-10.8)
[2019-08-13 06:45] LABS: Albumin 2.6 g/dL (3.2-5.2); BUN/Creatinine Ratio 35.4 (8-20); Calcium 9.1 mg/dL (8.6-10.3); EGFR African American 88.2 (>60); EGFR Non-African American 72.9 (>60); Potassium 4.5 mmol/L (3.5-5.0); Total Protein 4.8 g/dL (6.4-8.9)
[2019-08-13 06:46] LABS: Albumin/Globulin Ratio 1.2 (1-3); Globulin 2.2 g/dL (2-4); Total Bilirubin 0.5 mg/dL (0.2-1.0)
[2019-08-13] MEDS: Tiotropium Brom/Olodaterol MDI INH SCH ×2 (07:45→22:04)
[2019-08-13] MEDS: Aspirin 81 mg CHEW TAB* 81 MG TAB.CHEW PO SCH (08:23)
[2019-08-13] MEDS: guaiFENesin ER TAB 600 MG PO SCH ×2 (08:23→20:42)
[2019-08-13] MEDS: Pantoprazole TAB * 40 MG TAB PO SCH ×2 (08:23→20:42)
[2019-08-13] MEDS: Ferrous Sulfate TAB* 325 MG PO SCH ×2 (08:23→20:42)
[2019-08-13] MEDS: Isosorbide Mononitrate ER TAB* 30 MG PO SCH (08:23)
[2019-08-13] MEDS: Cyanocobalamin TAB* 500 MCG PO SCH (08:24)
[2019-08-13] MEDS: Metoprolol Tartrate TAB* 50 mg PO SCH ×2 (08:24→20:42)
[2019-08-13] MEDS: Polyethylene Glycol 3350* 17 GM PACKET PO PRN ×2 (08:24→20:47)
[2019-08-13] MEDS: Cefepime 2 GM in Dextrose(*) 2 GM/50 ML BAG IV SCH ×3 (08:24→23:29)
[2019-08-13] MEDS: Azithromycin 500 mg/250 ml NS 500 MG/250 ML BAG IVPB SCH (09:34)
[2019-08-13] MEDS ORDERED: Furosemide IV* 10 MG/ML 2 ML VIAL (20 MG) IV SLOW PU ONE (11:21)
[2019-08-13] MEDS ORDERED: Furosemide IV* 10 MG/ML 2 ML VIAL (20 MG) ONE (11:24)
--- NOTE | 2019-08-13 12:12 | PN ---
Hospitalist Progress Note Date of Service: 08/13/19 Called to bedside for patient in respiratory distress. Desats to 80% on 10L NC with increased WOB. Patient remains ronchorous, denies chest pain but is in obvious distress. Ordered ABG and transfer to ICU/Gis [facility] service for vapotherm vs rescue bipap depending on results of ABG. Case discussed with Dr. Godwin, ICU Gis Professor. Coordinated with primary RN.
--- NOTE | 2019-08-13 14:40 | PN ---
Date of Service: 08/13/19 Critical Care Services: Transferred to ICU for SOB. Vital Signs: Temp Pulse Resp BP SpO2 FiO2 37.4 C 71 22 119/45 98 60 08/13/19 12:05 08/13/19 14:12 08/13/19 14:12 08/13/19 14:00 08/13/19 14:12 08/13 14:12 Physical Exam: Gen: NAD HEENT: NCAT, PERRL Lungs: rales bibasilar, scant exp wheeze right >L Cardiac: S1S2 regular Abdomen: benign Extremities: no edema Neuro: A&O, grossly non-focal Fluid Balance (Past 24 Hours): I= O= Net Intake & Output 08/11/19 08/12/19 08/13/19 08/14/19 06:59 06:59 06:59 06:59 Intake Total 1460 539.5 1303 34 Output Total 525 450 480 600 Balance 935 89.5 823 -566 Intake: IV Fluids 200 60 34 ABX - AZITHROMYCIN 100 30 ABX - CEFEPIME 100 NS 30 heparin 34 IVPB 374 50 373 ABX - AZITHROMYCIN 255 315 ABX - CEFEPIME 119 50 58 Heparin 426 49.5 Oral 660 240 870 Output: Urine 525 450 480 600 Other: Estimated Void Medium Labs: Laboratory Results - last 24 hr 08/12/19 08/13/19 08/13/19 21:59 05:52 05:52 WBC 15.1 H RBC 3.08 L Hgb 8.3 L Hct 26 L MCV 83 MCH 27 MCHC 33 RDW 20 H Plt Count 280 MPV 7.5 Neut % (Auto) 94.9 Lymph % (Auto) 1.4 [place] % (Auto) 3.5 Eos % (Auto) 0.0 Baso % (Auto) 0.2 Absolute Neuts (auto) 14.3 H Absolute Lymphs (auto) 0.2 L Absolute Monos (auto) 0.5 Absolute Eos (auto) 0.0 Absolute Basos (auto) 0.0 Absolute Nucleated RBC 0.0 Nucleated RBC % 0.0 APTT 61.1 H ABG pH ABG pCO2 ABG pO2 ABG HCO3 ABG O2 Saturation ABG Base Excess Sodium 136 Potassium 4.5 Chloride 106 Carbon Dioxide 25 Anion Gap 5 BUN 35 H Creatinine 0.99 Est GFR ( Amer) 88.2 Est GFR (Non-Af Amer) 72.9 BUN/Creatinine Ratio 35.4 H Glucose 129 H Calcium 9.1 Total Bilirubin 0.50 AST 16 ALT 35 Alkaline Phosphatase 46 Total Protein 4.8 L Albumin 2.6 L Globulin 2.2 Albumin/Globulin Ratio 1.2 08/13/19 11:15 WBC RBC Hgb Hct MCV MCH MCHC RDW Plt Count MPV Neut % (Auto) Lymph % (Auto) [place] % (Auto) Eos % (Auto) Baso % (Auto) Absolute Neuts (auto) Absolute Lymphs (auto) Absolute Monos (auto) Absolute Eos (auto) Absolute Basos (auto) Absolute Nucleated RBC Nucleated RBC % APTT ABG pH 7.40 ABG pCO2 39 ABG pO2 75 L ABG HCO3 24.5 ABG O2 Saturation 97.5 ABG Base Excess -0.5 Sodium Potassium Chloride Carbon Dioxide Anion Gap BUN Creatinine Est GFR ( Amer) Est GFR (Non-Af Amer) BUN/Creatinine Ratio Glucose Calcium Total Bilirubin AST ALT Alkaline Phosphatase Total Protein Albumin Globulin Albumin/Globulin Ratio Studies: CXR, CT Chest, ECHO all reviewed Nutrition: Eating well Impression: 79 y/o male with oxygen dependent COPD admitted with superimposed PE and COPD exacerbation. Plan: Pulmonary Embolism - small bilat PEs and 3rd and 4th subsegs, no real evidence for RV strain. Has PHTN noted but also has COPD so may not be new at all. Continue Heparin cautiously with proven DVT as well and potential for GIB. COPD exacerbation - continue his COPD prescription as advised by Dr. Granados with Abx/steroids/bronchodilators, wean FIO2 as tolerated Hypervolemia - 1400cc positive balance last day or so, lasix on his way to ICU has helped, no clear indication for any more dosing at this time. While remains precarious if nothing new happens he may yet do very well. D/W pt and family at bedside that there are many complications that could occur but if they don't there is nothing new and so broken that he would not be expected to return to the life he had [employer]. Nothing new to add at this time. critical care time 40 minutes
[2019-08-13] MEDS: Atorvastatin* 80 MG TAB PO SCH (17:43)
[2019-08-13] MEDS ORDERED: Metoprolol Tartrate IV* 1 MG/ML 5 ML VIAL IV ONE (19:36)
[2019-08-13] MEDS: amLODIPine TAB* 5 MG PO SCH (19:56)
[2019-08-13] MEDS: Heparin DRIP 25,000 UNITS(*) 25,000 UNITS/500 ML BAG IV SCH (23:06)
[2019-08-14] MEDS: Albuterol/Ipratropium NEB.SOL* Albuterol 2.5 MG/Ipratropium 0.5 MG 3 ML INH SCH ×8 (03:01→23:15)
[2019-08-14 05:53] LABS: ABS Basophils 0.2 10^3/ul (0-0.2); ABS Lymphocytes 0.2 10^3/ul (1.0-4.8); ABS Monocytes 0.4 10^3/ul (0-0.8); ABS Neutrophils 13.6 10^3/ul (1.5-7.7); Hematocrit 27 % (42-52); Hemoglobin 8.7 g/dL (14.0-18.0); Lymphocyte % 1.6 %; Mean Corpuscular HGB Conc 32 g/dL (31-36); Mean Corpuscular Hemoglobin 27 pg (27-31); Mean Corpuscular Volume 83 fL (80-94); Mean Platelet Volume 7.3 fL (7.4-10.4); Nucleated Red Blood Cells % 0.1; Platelet Count 296 10^3/uL (150-450); Red Blood Count 3.22 10^6 /uL (4.18-5.48); Red Cell Distribution Width 19 % (10-15); White Blood Count 14.3 10^3/uL (3.5-10.8)
[2019-08-14 06:13] LABS: Albumin 2.8 g/dL (3.2-5.2); Calcium 9.2 mg/dL (8.6-10.3); Magnesium 2.2 mg/dL (1.9-2.7); Potassium 4.4 mmol/L (3.5-5.0); Total Bilirubin 0.6 mg/dL (0.2-1.0)
[2019-08-14 06:19] LABS: Albumin/Globulin Ratio 1.3 (1-3); BUN/Creatinine Ratio 44.8 (8-20); EGFR African American 91.4 (>60); EGFR Non-African American 75.6 (>60); Globulin 2.1 g/dL (2-4); Phosphorus 3.6 mg/dL (2.5-5.0); Total Protein 4.9 g/dL (6.4-8.9)
[2019-08-14] MEDS: Cefepime 2 GM in Dextrose(*) 2 GM/50 ML BAG IV SCH ×2 (09:23→16:28)
[2019-08-14] MEDS: amLODIPine TAB* 5 MG PO SCH (09:27)
[2019-08-14] MEDS: Ferrous Sulfate TAB* 325 MG PO SCH ×2 (09:30→20:03)
[2019-08-14] MEDS: Pantoprazole TAB * 40 MG TAB PO SCH ×2 (09:30→20:03)
[2019-08-14] MEDS: Isosorbide Mononitrate ER TAB* 30 MG PO SCH (09:30)
[2019-08-14] MEDS: Metoprolol Tartrate TAB* 50 mg PO SCH ×2 (09:31→20:03)
[2019-08-14] MEDS: Aspirin 81 mg CHEW TAB* 81 MG TAB.CHEW PO SCH (09:31)
[2019-08-14] MEDS: guaiFENesin ER TAB 600 MG PO SCH ×2 (09:31→20:03)
[2019-08-14] MEDS: Cyanocobalamin TAB* 500 MCG PO SCH (09:31)
[2019-08-14] MEDS: Tiotropium Brom/Olodaterol MDI INH SCH ×2 (10:31→19:12)
[2019-08-14] MEDS: ALPRAZolam TAB* 0.25 MG PO PRN ×2 (11:10→21:26)
[2019-08-14] MEDS: methylPREDNISolone SOD 40 MG* 1 ML VIAL IV SCH (11:27)
--- NOTE | 2019-08-14 14:58 | PN ---
Progress Note - Progress Note Date of Service: 08/14/19 - Pulmonary f/u note Note: Pt seen and examined at bedside. Pt reports feeling much better today. Has cough productive of thick phlegm. Cough assist has bene helping. Active Medications Generic Name Dose Route Start Last Admin Trade Name Freq PRN Reason Stop Dose Admin Acetaminophen 650 mg 08/06/19 20:16 08/10/19 22:44 Tylenol Tab* PO 650 mg Q4H PRN Administration MILD PAIN or TEMP > 100.4 Albuterol/Ipratropium 1 neb 08/12/19 11:00 08/14/19 10:21 Duoneb (Albuterol 2.5 Mg/Ipratropium 0.5 Mg) INH 1 neb [id number] AWAKE ABDOUL Administration Alprazolam 0.25 mg 08/08/19 15:57 08/14/19 11:10 Xanax Tab* PO 0.25 mg Q8H PRN Administration ANXIETY Amlodipine Besylate 2.5 mg 08/13/19 20:00 08/14/19 09:27 Norvasc Tab* PO 5 mg DAILY ABDOUL Administration Aspirin 81 mg 08/12/19 09:00 08/14/19 09:31 Aspirin 81 Mg Chew Tab* PO 81 mg DAILY ABDOUL Administration Atorvastatin Calcium 80 mg 08/11/19 18:00 08/13/19 17:43 Lipitor* PO 80 mg 1700 ABDOUL Administration Bisacodyl 10 mg 08/09/19 11:24 08/13/19 22:16 Dulcolax Supp* [place] 10 mg DAILY PRN Administration CONSTIPATION Cyanocobalamin 1,000 mcg 08/09/19 09:00 08/14/19 09:31 Vitamin B12 Tab* PO 1,000 mcg DAILY ABDOUL Administration Ferrous Sulfate 325 mg 08/08/19 21:00 08/14/19 09:30 Ferrous Sulfate Tab* PO 325 mg BID ABDOUL Administration Guaifenesin 600 mg 08/06/19 21:00 08/14/19 09:31 Mucinex* PO 600 mg BID ABDOUL Administration Heparin Sodium (Porcine) 0 units 08/06/19 20:30 Heparin Vial(*) IV .PER PROTOCOL [facility] Heparin Sodium/Dextrose 25,000 units in 500 mls @ 0 mls/hr 08/06/19 18:45 23:06 Heparin Drip 25,000 Units(*) IV 18 mls/hr PER RATE ABDOUL Administration Protocol Per Protocol Cefepime HCl 2 gm in 50 mls @ 100 mls/hr 08/07/19 16:00 08/14/19 09:23 Maxipime 2 Gm In Dextrose Duplex (*) IV 100 mls/hr 0000,0800,1600 ABDOUL Administration Isosorbide Mononitrate 90 mg 08/12/19 09:00 08/14/19 09:30 Imdur Er Tab* PO 90 mg DAILY ABDOUL Administration Methylprednisolone Sodium Succinate 40 mg 08/13/19 23:00 08/14/19 11:27 Solu-Medrol 40 Mg IV 40 mg Q12H ABDOUL Administration Metoprolol Tartrate 50 mg 08/10/19 17:00 08/14/19 09:31 Lopressor Tab* PO 50 mg BID ABDOUL Administration Nitroglycerin 0.4 mg 08/10/19 09:54 08/11/19 05:52 Nitroglycerin Tab 0.4 Mg* SL 0.4 mg Q5M PRN Administration ANGINA Ondansetron HCl 4 mg 08/06/19 20:16 08/10/19 10:22 Zofran Inj* IV 4 mg Q4H PRN Administration NAUSEA/VOMITING Pantoprazole Sodium 40 mg 08/10/19 21:00 08/14/19 09:30 Protonix Tab* PO 40 mg BID ABDOUL Administration Polyethylene Glycol/Electrolytes 17 gm 08/09/19 11:25 08/13/19 20:47 Miralax* PO 17 gm 0800,2100 PRN Administration CONSTIPATION Throat Lozenges 1 diana 08/11/19 16:01 08/13/19 04:43 Chloraseptic [place]* PO 1 diana Q6H PRN Administration SORE THROAT Tiotropium [place]/Olodaterol 1 puff 08/06/19 21:00 08/14/19 10:31 Stiolto Respimat Inh [place] (60 Puff) INH 1 puff BID ABDOUL Administration Vital Signs Temp Pulse Resp BP Pulse Ox 98 F 66 23 149/71 94 08/14/19 08:00 08/14/19 14:00 08/14/19 14:00 08/14/19 13:00 08/14/19 14:00 O/E: Pt in NAD, looks better HEENT: PERRLA Lungs: Diminished air entry b/l, crackles+ CVS: S1, S2+ Abd: Soft, BS+ Ext: Normal ROM Skin: No rash Neuro: No focal deficits Laboratory Results - last 24 hr 08/13/19 08/14/19 08/14/19 21:35 05:30 05:45 WBC 14.3 H RBC 3.22 L Hgb 8.7 L Hct 27 L MCV 83 MCH 27 MCHC 32 RDW 19 H Plt Count 296 MPV 7.3 L Neut % (Auto) 94.6 Lymph % (Auto) 1.6 [place] % (Auto) 2.7 Eos % (Auto) 0.0 Baso % (Auto) 1.1 Absolute Neuts (auto) 13.6 H Absolute Lymphs (auto) 0.2 L Absolute Monos (auto) 0.4 Absolute Eos (auto) 0.0 Absolute Basos (auto) 0.2 Absolute Nucleated RBC 0.0 Nucleated RBC % 0.1 APTT 72.0 H Sodium Potassium Chloride Carbon Dioxide Anion Gap BUN Creatinine Est GFR ( Amer) Est GFR (Non-Af Amer) BUN/Creatinine Ratio Glucose Calcium Ionized Calcium 1.30 Phosphorus Magnesium Total Bilirubin AST ALT Alkaline Phosphatase Total Protein Albumin Globulin Albumin/Globulin Ratio 08/14/19 05:45 WBC RBC Hgb Hct MCV MCH MCHC RDW Plt Count MPV Neut % (Auto) Lymph % (Auto) [place] % (Auto) Eos % (Auto) Baso % (Auto) Absolute Neuts (auto) Absolute Lymphs (auto) Absolute Monos (auto) Absolute Eos (auto) Absolute Basos (auto) Absolute Nucleated RBC Nucleated RBC % APTT Sodium 136 Potassium 4.4 Chloride 106 Carbon Dioxide 27 Anion Gap 3 BUN 43 H Creatinine 0.96 Est GFR ( Amer) 91.4 Est GFR (Non-Af Amer) 75.6 BUN/Creatinine Ratio 44.8 H Glucose 115 H Calcium 9.2 Ionized Calcium Phosphorus 3.6 Magnesium 2.2 Total Bilirubin 0.60 AST 48 H ALT 76 H Alkaline Phosphatase 55 Total Protein 4.9 L Albumin 2.8 L Globulin 2.1 Albumin/Globulin Ratio 1.3 I/R: 79 y/o male known history of Afib, previous history of GI bleed on Eliquis (discontinued in 04/2019), colon polyp, presented with acute shortness of breath found to have b/l submassive PE with significant clot burden, pl effusion, and hemoptysis. admitted to ICU due to RV strain (not candidate for TPA given hemoptysis and GI bleed) placed on heparin drip. Pt was transferred to ICU for resp distress 08/13, was noted to have bronchospasm and wheeze Pt had complicated course with NSTEMI No more episodes of hemoptysis today Will c/w Heparin drip unless significant bleeding given significant clot burden. Given no active bleeding, can be switched to Lovenox tomorrow Might need evaluation for IVC filter if cant be anticoagulated FiO2 requirements have improved, down to 6L O2 today c/w metanebs Pt with intermittent chest pains, not stable for cath at this time, to be considered as out pt. Cardio f/u appreciated, recommend Plavix continues on abx, steroids, will taper steroids starting tomorrow as he had episode of bronchospasm yesterday, wheezing is improved Basal congestion noted on CXR GERD precautions and PPI No significant hypoxia noted on ABG, no hypercapnia D/w pt and family at bedside. Will transfer to medical floor if continues to remain stable
[2019-08-14] MEDS: Atorvastatin* 80 MG TAB PO SCH (18:45)
[2019-08-15] MEDS: Cefepime 2 GM in Dextrose(*) 2 GM/50 ML BAG IV SCH ×4 (00:04→23:45)
[2019-08-15] MEDS: methylPREDNISolone SOD 40 MG* 1 ML VIAL IV SCH (00:04)
[2019-08-15] MEDS: Albuterol/Ipratropium NEB.SOL* Albuterol 2.5 MG/Ipratropium 0.5 MG 3 ML INH SCH ×6 (03:23→23:22)
[2019-08-15 05:14] LABS: ABS Basophils 0.1 10^3/ul (0-0.2); ABS Lymphocytes 0.2 10^3/ul (1.0-4.8); ABS Monocytes 0.5 10^3/ul (0-0.8); ABS Neutrophils 12.3 10^3/ul (1.5-7.7); Hematocrit 28 % (42-52); Hemoglobin 8.8 g/dL (14.0-18.0); Lymphocyte % 1.5 %; Mean Corpuscular HGB Conc 32 g/dL (31-36); Mean Corpuscular Hemoglobin 27 pg (27-31); Mean Corpuscular Volume 84 fL (80-94); Mean Platelet Volume 7.7 fL (7.4-10.4); Nucleated Red Blood Cells % 0.1; Platelet Count 322 10^3/uL (150-450); Red Cell Distribution Width 20 % (10-15); White Blood Count 13.1 10^3/uL (3.5-10.8)
[2019-08-15 05:39] LABS: BUN/Creatinine Ratio 41.5 (8-20); Calcium 8.9 mg/dL (8.6-10.3); EGFR African American 93.7 (>60); EGFR Non-African American 77.4 (>60); Potassium 4.5 mmol/L (3.5-5.0)
[2019-08-15] MEDS: Tiotropium Brom/Olodaterol MDI INH SCH ×2 (07:26→19:29)
[2019-08-15] MEDS: Heparin DRIP 25,000 UNITS(*) 25,000 UNITS/500 ML BAG IV SCH (07:51)
[2019-08-15] MEDS: ALPRAZolam TAB* 0.25 MG PO PRN (08:13)
[2019-08-15] MEDS: guaiFENesin ER TAB 600 MG PO SCH ×2 (08:13→21:25)
[2019-08-15] MEDS: Isosorbide Mononitrate ER TAB* 30 MG PO SCH (08:13)
[2019-08-15] MEDS: Pantoprazole TAB * 40 MG TAB PO SCH ×2 (08:14→21:26)
[2019-08-15] MEDS: Metoprolol Tartrate TAB* 50 mg PO SCH ×2 (08:14→21:26)
[2019-08-15] MEDS: Aspirin 81 mg CHEW TAB* 81 MG TAB.CHEW PO SCH (08:14)
[2019-08-15] MEDS: Ferrous Sulfate TAB* 325 MG PO SCH ×2 (08:14→21:25)
[2019-08-15] MEDS: amLODIPine TAB* 5 MG PO SCH (08:14)
[2019-08-15] MEDS: Cyanocobalamin TAB* 500 MCG PO SCH (08:14)
--- NOTE | 2019-08-15 11:12 | PN ---
Progress Note - Progress Note Date of Service: 08/15/19 - Pulmonary note Note: Pt seen and examined at bedside. Pt reports feeling better this am. Pt`s sister who was also admitted to ICU last night, pt reports coping well. Still has thick secretions that he is able to expectorate with metanebs. Active Medications Generic Name Dose Route Start Last Admin Trade Name Freq PRN Reason Stop Dose Admin Acetaminophen 650 mg 08/06/19 20:16 08/10/19 22:44 Tylenol Tab* PO 650 mg Q4H PRN Administration MILD PAIN or TEMP > 100.4 Albuterol/Ipratropium 1 neb 08/12/19 11:00 08/15/19 07:27 Duoneb (Albuterol 2.5 Mg/Ipratropium 0.5 Mg) INH 1 neb [id number] AWAKE ABDOUL Administration Alprazolam 0.25 mg 08/08/19 15:57 08/15/19 08:13 Xanax Tab* PO 0.25 mg Q8H PRN Administration ANXIETY Amlodipine Besylate 2.5 mg 08/13/19 20:00 08/15/19 08:14 Norvasc Tab* PO 2.5 mg DAILY ABDOUL Administration Aspirin 81 mg 08/12/19 09:00 08/15/19 08:14 Aspirin 81 Mg Chew Tab* PO 81 mg DAILY ABDOUL Administration Atorvastatin Calcium 80 mg 08/11/19 18:00 08/14/19 18:45 Lipitor* PO 80 mg 1700 ABDOUL Administration Bisacodyl 10 mg 08/09/19 11:24 08/13/19 22:16 Dulcolax Supp* [place] 10 mg DAILY PRN Administration CONSTIPATION Cyanocobalamin 1,000 mcg 08/09/19 09:00 08/15/19 08:14 Vitamin B12 Tab* PO 1,000 mcg DAILY ABDOUL Administration Enoxaparin Sodium 60 mg 08/15/19 11:00 Lovenox(*) SUBCUT Q12H ABDOUL Ferrous Sulfate 325 mg 08/08/19 21:00 08/15/19 08:14 Ferrous Sulfate Tab* PO 325 mg BID ABDOUL Administration Guaifenesin 600 mg 08/06/19 21:00 08/15/19 08:13 Mucinex* PO 600 mg BID ABDOUL Administration Heparin Sodium (Porcine) 0 units 08/06/19 20:30 08/15/19 07:27 Heparin Vial(*) IV 2,600 units .PER PROTOCOL ABDOUL Administration Cefepime HCl 2 gm in 50 mls @ 100 mls/hr 08/07/19 16:00 08/15/19 08:05 Maxipime 2 Gm In Dextrose Duplex (*) IV 100 mls/hr 0000,0800,1600 ABDOUL Administration Isosorbide Mononitrate 90 mg 08/12/19 09:00 08/15/19 08:13 Imdur Er Tab* PO 90 mg DAILY ABDOUL Administration Methylprednisolone Sodium Succinate 40 mg 08/16/19 09:00 Solu-Medrol 40 Mg IV DAILY ABDOUL Metoprolol Tartrate 50 mg 08/10/19 17:00 08/15/19 08:14 Lopressor Tab* PO 50 mg BID ABDOUL Administration Nitroglycerin 0.4 mg 08/10/19 09:54 08/11/19 05:52 Nitroglycerin Tab 0.4 Mg* SL 0.4 mg Q5M PRN Administration ANGINA Ondansetron HCl 4 mg 08/06/19 20:16 08/10/19 10:22 Zofran Inj* IV 4 mg Q4H PRN Administration NAUSEA/VOMITING Pantoprazole Sodium 40 mg 08/10/19 21:00 08/15/19 08:14 Protonix Tab* PO 40 mg BID ABDOUL Administration Polyethylene Glycol/Electrolytes 17 gm 08/09/19 11:25 08/13/19 20:47 Miralax* PO 17 gm 0800,2100 PRN Administration CONSTIPATION Throat Lozenges 1 diana 08/11/19 16:01 08/13/19 04:43 Chloraseptic Diana* PO 1 diana Q6H PRN Administration SORE THROAT Tiotropium [place]/Olodaterol 1 puff 08/06/19 21:00 08/15/19 07:26 Stiolto Respimat Inh [place] (60 Puff) INH 1 puff BID ABDOUL Administration Vital Signs Temp Pulse Resp BP Pulse Ox 98.2 F 68 23 151/76 95 08/15/19 04:00 08/15/19 08:02 08/15/19 08:13 08/15/19 08:02 08/15/19 08:02 O/E: Pt in NAD, sitting up in chair, looks comfortable HEENT: PERRLA, mucus membranes moist Lungs: Diminished air entry b/l, intermittent wheeze+, crackles+ at bases CVS: S1, S2+, regular Abd: Soft, BS+ Ext: Normal ROM Skin: No rash Neuro: No focal deficits Laboratory Results - last 24 hr 08/14/19 08/15/19 08/15/19 21:22 05:00 05:00 WBC RBC Hgb Hct MCV MCH MCHC RDW Plt Count MPV Neut % (Auto) Lymph % (Auto) [place] % (Auto) Eos % (Auto) Baso % (Auto) Absolute Neuts (auto) Absolute Lymphs (auto) Absolute Monos (auto) Absolute Eos (auto) Absolute Basos (auto) Absolute Nucleated RBC Nucleated RBC % APTT 72.3 H 20.8 L Sodium 137 Potassium 4.5 Chloride 107 Carbon Dioxide 25 Anion Gap 5 BUN 39 H Creatinine 0.94 Est GFR ( Amer) 93.7 Est GFR (Non-Af Amer) 77.4 BUN/Creatinine Ratio 41.5 H Glucose 140 H Calcium 8.9 08/15/19 08/15/19 05:00 06:30 WBC 13.1 H RBC 3.30 L Hgb 8.8 L Hct 28 L MCV 84 MCH 27 MCHC 32 RDW 20 H Plt Count 322 MPV 7.7 Neut % (Auto) 94.3 Lymph % (Auto) 1.5 [place] % (Auto) 3.6 Eos % (Auto) 0.0 Baso % (Auto) 0.6 Absolute Neuts (auto) 12.3 H Absolute Lymphs (auto) 0.2 L Absolute Monos (auto) 0.5 Absolute Eos (auto) 0.0 Absolute Basos (auto) 0.1 Absolute Nucleated RBC 0.0 Nucleated RBC % 0.1 APTT 48.0 H Sodium Potassium Chloride Carbon Dioxide Anion Gap BUN Creatinine Est GFR ( Amer) Est GFR (Non-Af Amer) BUN/Creatinine Ratio Glucose Calcium I/R: 79 y/o male known history of Afib, previous history of GI bleed on Eliquis (discontinued in 04/2019), colon polyp, presented with acute shortness of breath found to have b/l submassive PE with significant clot burden, pl effusion, and hemoptysis. admitted to ICU due to RV strain (not candidate for TPA given hemoptysis and GI bleed) placed on heparin drip. Pt was transferred to ICU for resp distress 08/13, was noted to have bronchospasm and wheeze Pt improved significantly since admission He is currently on 4L O2 Pt had complicated course with NSTEMI this admission, cardiology f/u appreciated. No more episodes of hemoptysis today Was on Heparin drip for PE. Given no active bleeding for few days, switched to Lovenox today Might need evaluation for IVC filter if cant be anticoagulated in the future c/w metanebs q 4hrs Basal consolidation noted on CXR GERD precautions and PPI No significant hypoxia noted on ABG, no hypercapnia D/w pt and family at bedside. Will transfer to medical floor today D/w [place] Manzano NP
[2019-08-15] MEDS: Enoxaparin(*) 60 MG/0.6 ML SYR SUBCUT SCH ×2 (11:23→23:45)
[2019-08-15 11:37] LABS: Magnesium 2.3 mg/dL (1.9-2.7)
[2019-08-15] MEDS ORDERED: methylPREDNISolone SOD 40 MG* 1 ML VIAL IV ONE (12:00)
[2019-08-15] MEDS ORDERED: Nystatin SUSPENSION* 100000 UNITS/ML 5 ML UDC PO SCH (13:00)
[2019-08-15] MEDS: Magic M W2 Ben/Maal/Nyst/Lido* 240 ML MOUTHWASH (alt formulation) SWISH SWAL SCH ×3 (15:10→21:28)
[2019-08-15] MEDS: Atorvastatin* 80 MG TAB PO SCH (18:50)
[2019-08-16] MEDS: Albuterol/Ipratropium NEB.SOL* Albuterol 2.5 MG/Ipratropium 0.5 MG 3 ML INH SCH ×5 (03:24→19:23)
[2019-08-16 05:54] LABS: Hematocrit 30 % (42-52); Hemoglobin 9.6 g/dL (14.0-18.0); Mean Corpuscular HGB Conc 32 g/dL (31-36); Mean Corpuscular Hemoglobin 27 pg (27-31); Mean Corpuscular Volume 84 fL (80-94); Mean Platelet Volume 7.2 fL (7.4-10.4); Platelet Count 347 10^3/uL (150-450); Red Blood Count 3.62 10^6 /uL (4.18-5.48); Red Cell Distribution Width 20 % (10-15); White Blood Count 14.4 10^3/uL (3.5-10.8)
[2019-08-16 06:12] LABS: BUN/Creatinine Ratio 32.3 (8-20); Calcium 9.2 mg/dL (8.6-10.3); EGFR African American 88.2 (>60); EGFR Non-African American 72.9 (>60); Potassium 4.8 mmol/L (3.5-5.0)
[2019-08-16] MEDS: Tiotropium Brom/Olodaterol MDI INH SCH ×2 (07:54→19:36)
[2019-08-16] MEDS: Cefepime 2 GM in Dextrose(*) 2 GM/50 ML BAG IV SCH ×2 (08:30→15:58)
[2019-08-16] MEDS: Magic M W2 Ben/Maal/Nyst/Lido* 240 ML MOUTHWASH (alt formulation) SWISH SWAL SCH ×4 (08:30→22:24)
[2019-08-16] MEDS: methylPREDNISolone SOD 40 MG* 1 ML VIAL IV SCH (08:31)
[2019-08-16] MEDS: guaiFENesin ER TAB 600 MG PO SCH ×2 (08:31→22:21)
[2019-08-16] MEDS: Cyanocobalamin TAB* 500 MCG PO SCH (08:31)
[2019-08-16] MEDS: Pantoprazole TAB * 40 MG TAB PO SCH ×2 (08:31→22:21)
[2019-08-16] MEDS: Ferrous Sulfate TAB* 325 MG PO SCH ×2 (08:31→22:20)
[2019-08-16] MEDS: Metoprolol Tartrate TAB* 50 mg PO SCH ×2 (08:32→22:21)
[2019-08-16] MEDS: Isosorbide Mononitrate ER TAB* 30 MG PO SCH (08:33)
[2019-08-16] MEDS: amLODIPine TAB* 5 MG PO SCH (08:33)
[2019-08-16] MEDS: Aspirin 81 mg CHEW TAB* 81 MG TAB.CHEW PO SCH (08:33)
[2019-08-16] MEDS: ALPRAZolam TAB* 0.25 MG PO PRN ×2 (09:10→22:26)
[2019-08-16] MEDS: Enoxaparin(*) 60 MG/0.6 ML SYR SUBCUT SCH ×2 (11:15→22:27)
--- NOTE | 2019-08-16 15:48 | PN ---
Progress Note - Progress Note Date of Service: 08/16/19 - Pulm f/u note Note: Pt seen and examined at bedside Pt reports feeling better. Reports improvement in SOB, still having cough with secretions Active Medications Generic Name Dose Route Start Last Admin Trade Name Freq PRN Reason Stop Dose Admin Acetaminophen 650 mg 08/06/19 20:16 08/10/19 22:44 Tylenol Tab* PO 650 mg Q4H PRN Administration MILD PAIN or TEMP > 100.4 Albuterol/Ipratropium 1 neb 08/12/19 11:00 08/16/19 15:40 Duoneb (Albuterol 2.5 Mg/Ipratropium 0.5 Mg) INH 1 neb [id number] AWAKE ABDOUL Administration Alprazolam 0.25 mg 08/15/19 18:11 08/16/19 09:10 Xanax Tab* PO 0.25 mg TID PRN Administration ANXIETY Amlodipine Besylate 2.5 mg 08/13/19 20:00 08/16/19 08:33 Norvasc Tab* PO 2.5 mg DAILY ABDOUL Administration Aspirin 81 mg 08/12/19 09:00 08/16/19 08:33 Aspirin 81 Mg Chew Tab* PO 81 mg DAILY ABDOUL Administration Atorvastatin Calcium 80 mg 08/11/19 18:00 08/15/19 18:50 Lipitor* PO 80 mg 1700 ABDOUL Administration Bisacodyl 10 mg 08/09/19 11:24 08/13/19 22:16 Dulcolax Supp* AR 10 mg DAILY PRN Administration CONSTIPATION Cyanocobalamin 1,000 mcg 08/09/19 09:00 08/16/19 08:31 Vitamin B12 Tab* PO 1,000 mcg DAILY ABDOUL Administration Enoxaparin Sodium 60 mg 08/15/19 11:00 08/16/19 11:15 Lovenox(*) SUBCUT 60 mg Q12H ABDOUL Administration Ferrous Sulfate 325 mg 08/08/19 21:00 08/16/19 08:31 Ferrous Sulfate Tab* PO 325 mg BID ABDOUL Administration Guaifenesin 600 mg 08/06/19 21:00 08/16/19 08:31 Mucinex* PO 600 mg BID ABDOUL Administration Cefepime HCl 2 gm in 50 mls @ 100 mls/hr 08/07/19 16:00 08/16/19 08:30 Maxipime 2 Gm In Dextrose Duplex (*) IV 100 mls/hr 0000,0800,1600 ABDOUL Administration Isosorbide Mononitrate 90 mg 08/12/19 09:00 08/16/19 08:33 Imdur Er Tab* PO 90 mg DAILY ABDOUL Administration Methylprednisolone Sodium Succinate 40 mg 08/16/19 09:00 08/16/19 08:31 Solu-Medrol 40 Mg IV 40 mg DAILY ABDOUL Administration Metoprolol Tartrate 50 mg 08/10/19 17:00 08/16/19 08:32 Lopressor Tab* PO 50 mg BID ABDOUL Administration Multi-Ingredient Mouthwash/Gargle 5 ml 08/15/19 13:00 08/16/19 13:29 Magic M W2 Brian/Maal/Nyst/Lido* SWISH SWAL 5 ml QID ABDOUL Administration Nitroglycerin 0.4 mg 08/10/19 09:54 08/11/19 05:52 Nitroglycerin Tab 0.4 Mg* SL 0.4 mg Q5M PRN Administration ANGINA Ondansetron HCl 4 mg 08/06/19 20:16 08/10/19 10:22 Zofran Inj* IV 4 mg Q4H PRN Administration NAUSEA/VOMITING Pantoprazole Sodium 40 mg 08/10/19 21:00 08/16/19 08:31 Protonix Tab* PO 40 mg BID ABDOUL Administration Polyethylene Glycol/Electrolytes 17 gm 08/09/19 11:25 08/13/19 20:47 Miralax* PO 17 gm 0800,2100 PRN Administration CONSTIPATION Throat Lozenges 1 diana 08/11/19 16:01 08/13/19 04:43 Chloraseptic Diana* PO 1 diana Q6H PRN Administration SORE THROAT Tiotropium Lynch/Olodaterol 1 puff 08/06/19 21:00 08/16/19 07:54 Stiolto Respimat Inh [place] (60 Puff) INH 1 puff BID ABDOUL Administration Vital Signs Temp Pulse Resp BP Pulse Ox 97.6 F 56 20 145/64 95 08/16/19 11:21 08/16/19 11:36 08/16/19 11:37 08/16/19 11:21 08/16/19 11:36 O/E: Pt in NAD, looks comfortable HEENT: PERRLA, mucus membranes moist Lungs: Diminished air entry b/l, no wheeze+, crackles+ at bases CVS: S1, S2+, regular Abd: Soft, BS+, NT Ext: Normal ROM Skin: No rash Neuro: No focal deficits Laboratory Results - last 24 hr 08/16/19 08/16/19 05:46 05:46 WBC 14.4 H RBC 3.62 L Hgb 9.6 L Hct 30 L MCV 84 MCH 27 MCHC 32 RDW 20 H Plt Count 347 MPV 7.2 L Sodium 137 Potassium 4.8 Chloride 106 Carbon Dioxide 28 Anion Gap 3 BUN 32 H Creatinine 0.99 Est GFR ( Amer) 88.2 Est GFR (Non-Af Amer) 72.9 BUN/Creatinine Ratio 32.3 H Glucose 127 H Calcium 9.2 I/R: 79 y/o male known history of Afib, previous history of GI bleed on Eliquis (discontinued in 04/2019), colon polyp, presented with acute shortness of breath found to have b/l submassive PE with significant clot burden, pl effusion, and hemoptysis. admitted to ICU due to RV strain (not candidate for TPA given hemoptysis and GI bleed) placed on heparin drip. Pt was transferred to ICU for resp distress 08/13, was noted to have bronchospasm and wheeze. No significant hypoxia noted on ABG, no hypercapnia Pt improved significantly since admission. No more episodes of hemoptysis He is currently on 4L O2. Able to expectorate secretions Pt ambulated today and didnot have significant dyspnea c/w metanebs q 4hrs Pt had complicated course with NSTEMI this admission, cardiology f/u appreciated. Possible cath as out pt Was on Heparin drip for PE. Given no active bleeding for few days, switched to Lovenox 08/15. H&H is stable GERD precautions and PPI He has O2 at home, O2 requirements need to be assessed On Cefepime, completed Servandoithro. Will change steroids to po in am D/w pt and family at bedside. D/w Maine Manzano NP
[2019-08-16] MEDS: Atorvastatin* 80 MG TAB PO SCH (16:04)
--- NOTE | 2019-08-16 17:34 | PN ---
Subjective Date of Service: 08/16/19 Interval History: Patient seen and examined. Downgraded from ICU last evening. Has been able to walk with assistance and PT. Tires easily, no acute SOB, no chest pain. No further hemoptysis. No fevers or chills. States very productive cough with dark sputum. Past Medical History: Unchanged from Admission Objective Active Medications: Acetaminophen (Tylenol Tab*) 650 mg PO Q4H PRN PRN Reason: MILD PAIN or TEMP > 100.4 Last Admin: 08/10/19 22:44 Dose: 650 mg Albuterol/Ipratropium (Duoneb (Albuterol 2.5 Mg/Ipratropium 0.5 Mg)) 1 neb INH [id number] AWAKE [facility] Last Admin: 08/16/19 15:40 Dose: 1 neb Alprazolam (Xanax Tab*) 0.25 mg PO TID PRN PRN Reason: ANXIETY Last Admin: 08/16/19 09:10 Dose: 0.25 mg Amlodipine Besylate (Norvasc Tab*) 2.5 mg PO DAILY [facility] Last Admin: 08/16/19 08:33 Dose: 2.5 mg Aspirin (Aspirin 81 Mg Chew Tab*) 81 mg PO DAILY [facility] Last Admin: 08/16/19 08:33 Dose: 81 mg Atorvastatin Calcium (Lipitor*) 80 mg PO 1700 [facility] Last Admin: 08/16/19 16:04 Dose: 80 mg Bisacodyl (Dulcolax Supp*) 10 mg MS DAILY PRN PRN Reason: CONSTIPATION Last Admin: 08/13/19 22:16 Dose: 10 mg Cyanocobalamin (Vitamin B12 Tab*) 1,000 mcg PO DAILY [facility] Last Admin: 08/16/19 08:31 Dose: 1,000 mcg Enoxaparin Sodium (Lovenox(*)) 60 mg SUBCUT Q12H [facility] Last Admin: 08/16/19 11:15 Dose: 60 mg Ferrous Sulfate (Ferrous Sulfate Tab*) 325 mg PO BID [facility] Last Admin: 08/16/19 08:31 Dose: 325 mg Guaifenesin (Mucinex*) 600 mg PO BID [facility] Last Admin: 08/16/19 08:31 Dose: 600 mg Cefepime HCl (Maxipime 2 Gm In Dextrose Duplex (*)) 2 gm in 50 mls @ 100 mls/ hr IV 0000,0800,1600 [facility] Last Admin: 08/16/19 15:58 Dose: 100 mls/hr Isosorbide Mononitrate (Imdur Er Tab*) 90 mg PO DAILY [facility] Last Admin: 08/16/19 08:33 Dose: 90 mg Methylprednisolone Sodium Succinate (Solu-Medrol 40 Mg) 40 mg IV DAILY [facility] Last Admin: 08/16/19 08:31 Dose: 40 mg Metoprolol Tartrate (Lopressor Tab*) 50 mg PO BID [facility] Last Admin: 08/16/19 08:32 Dose: 50 mg Multi-Ingredient Mouthwash/Gargle (Magic M W2 Brian/Maal/Nyst/Lido*) 5 ml SWISH SWAL QID [facility] Last Admin: 08/16/19 16:04 Dose: 5 ml Nitroglycerin (Nitroglycerin Tab 0.4 Mg*) 0.4 mg SL Q5M PRN PRN Reason: ANGINA Last Admin: 08/11/19 05:52 Dose: 0.4 mg Ondansetron HCl (Zofran Inj*) 4 mg IV Q4H PRN PRN Reason: NAUSEA/VOMITING Last Admin: 08/10/19 10:22 Dose: 4 mg Pantoprazole Sodium (Protonix Tab*) 40 mg PO BID [facility] Last Admin: 08/16/19 08:31 Dose: 40 mg Polyethylene Glycol/Electrolytes (Miralax*) 17 gm PO 0800,2100 PRN PRN Reason: CONSTIPATION Last Admin: 08/13/19 20:47 Dose: 17 gm Throat Lozenges (Chloraseptic Diana*) 1 diana PO Q6H PRN PRN Reason: SORE THROAT Last Admin: 08/13/19 04:43 Dose: 1 diana Tiotropium [place]/Olodaterol (Stiolto Respimat Inh [place] (60 Puff)) 1 puff INH BID [facility] Last Admin: 08/16/19 07:54 Dose: 1 puff Vital Signs - 8 hr 08/16/19 08/16/19 08/16/19 11:21 11:36 11:37 Temperature 97.6 F Pulse Rate 55 56 Respiratory 20 16 20 Rate Blood Pressure 145/64 (mmHg) O2 Sat by Pulse 97 95 Oximetry 08/16/19 08/16/19 15:41 16:00 Temperature 97.4 F Pulse Rate 62 64 Respiratory 16 18 Rate Blood Pressure 157/55 (mmHg) O2 Sat by Pulse 92 97 Oximetry Oxygen Devices in Use Now: Nasal Cannula Appearance: alert, NAD Eyes: No Scleral Icterus, PERRLA Ears/Nose/Mouth/Throat: NL Teeth, Lips, Gums, Mucous Membranes Moist Neck: NL Appearance and Movements; NL JVP Respiratory: Symmetrical Chest Expansion and Respiratory Effort - decreased rhonchi, no wheeze, loose cough Cardiovascular: NL Sounds; No Murmurs; No JVD, RRR Abdominal: NL Sounds; No Tenderness; No Distention Extremities: No Edema, No Clubbing, Cyanosis Skin: No Rash or Ulcers Neurological: Alert and Oriented x 3, - - general weakness Nutrition: Taking PO's Result Diagrams: 08/16/19 05:46 08/16/19 05:46 Microbiology and Other Data: Microbiology 08/06/19 21:40 Nasal Screen MRSA (PCR) - Final Nasal Mrsa Not Detected Diagnostic Imaging: Patient Name: RANI MULTANI Medical Record#: [id number] Ordering Physician: Daniel Copeland MD Acct.#: [id number] : 1940 Age: 79 Sex: M Location: [facility] Exam Date: 08/06/191546 ADM Status: ADM IN Order Information: CTA CHEST Accession Number: [id number] CPT: 01088 ADDENDUM Addendum created by Yusra Singh MD on 08/06/2019 6:41:31 PM EST The ordering physician Daniel Hayes was contacted by phone at 6:38 PM EST, 08/06/2019 with these results. Initial report created on 08/06/2019 6:35:43 PM EST PROCEDURE INFORMATION: Exam: CT Angiography Chest With Contrast Exam date and time: 08/06/2019 5:32 PM Age: 79 years old Clinical history: Shortness of breath; Additional info: Hemoptysis and SOB. R/O pe TECHNIQUE: Imaging protocol: Computed tomographic angiography of the chest with intravenous contrast. 3D rendering: MIP reconstructed images were created and reviewed. Radiation optimization: All CT scans at this facility use at least one of these dose optimization techniques: automated exposure control; mA and/or kV adjustment per patient size (includes targeted exams where dose is matched to clinical indication); or iterative reconstruction. Contrast material: OMNIPAQUE 350; Contrast volume: 64 ml; Contrast route: IV; COMPARISON: OT CXR PORTAP CHEST AP OR PORT 08/06/2019 3:26 PM FINDINGS: Pulmonary arteries: Pulmonary emboli are seen bilaterally, visualized in the right middle and left lower lobes, occlusive and partially occlusive. Emboli are seen in third and fourth degree pulmonary arterial branches. Aorta: Atherosclerotic vascular disease is noted. The thoracic aorta is normal caliber. No aneurysm or dissection is seen. Lungs: Emphysematous changes of the lungs bilaterally. Left lung bases infiltrates may reflect atelectasis or pneumonitis. Correlate with clinical information. The is minimal atelectasis at the posterior right lower lobe. Pleural space: No pleural effusion at the lung bases. There is an apparent loculated pleural effusion on the left, at the superior aspect of the fissure. Heart: There is a slightly elevated RV to LV ratio of 1.18. No cardiomegaly. No pericardial effusion. Lymph nodes: Mediastinal and hilar lymph nodes are upper limits of normal to mildly enlarged. These are nonspecific. Bones/joints: 13 sets of ribs are noted. The uppermost set of ribs likely reflects cervical ribs at the C7 level. There are compression deformities at the T5, T6, and T12 levels which are age-indeterminate. Previous report from 03/28/2019 described compression fractures at T6 and T7 levels, probably relating to a difference in vertebral body numbering. The central superior compression at T12 was not described in the 03/28/2019 report. IMAGING Patient Name:RAIN MULTANI MR: [id number] : 1940 IMPRESSION: 1. Pulmonary emboli visualized in the right middle and left lower lobes. 2. Slightly elevated RV to LV ratio suggests possible right heart failure. 3. Atelectasis versus pneumonitis at the left lung base. Mild atelectasis at the posterior right lung base. 4. Loculated left pleural effusion. 5. Thoracic compression deformities, as above. To contact [facility] with a general question: [facility] - [phone] For direct physician to physician contact: Physician Hotline - [phone] [facility] ([facility] Facility ID #[id number]) <Electronically signed by Yusra Singh MD in OV>08/06/19 1841 Dictated by: Yusra Singh MD Dictated Date/Time:08/06/191731 Transcribed Date/Time: 08/06/191731 Copy to: Mal Gan MD; Daniel Copeland MD; Ramakrishna Isbell MD; Mauricio Mann NP ADDENDUM Addendum created by Trevin Quiroz MD on 08/07/2019 2:21:57 PM EST Case discussed with Dr. Gan at 2:21 PM on 08/07/2019. Addendum created by Yusra Singh MD on 08/06/2019 6:41:31 PM EST The ordering physician Daniel Hayes was contacted by phone at 6:38 PM EST, 08/06/2019 with these results. Initial report created on 08/06/2019 6:35:43 PM EST PROCEDURE INFORMATION: Exam: CT Angiography Chest With Contrast Exam date and time: 08/06/2019 5:32 PM Age: 79 years old Clinical history: Shortness of breath; Additional info: Hemoptysis and SOB. R/O pe TECHNIQUE: Imaging protocol: Computed tomographic angiography of the chest with intravenous contrast. 3D rendering: MIP reconstructed images were created and reviewed. Radiation optimization: All CT scans at this facility use at least one of these dose optimization techniques: automated exposure control; mA and/or kV adjustment per patient size (includes targeted exams where dose is matched to clinical indication); or iterative reconstruction. Contrast material: OMNIPAQUE 350; Contrast volume: 64 ml; Contrast route: IV; COMPARISON: OT CXR PORTAP CHEST AP OR PORT 08/06/2019 3:26 PM FINDINGS: Pulmonary arteries: Pulmonary emboli are seen bilaterally, visualized in the right middle and left lower lobes, occlusive and partially occlusive. Emboli are seen in third and fourth degree pulmonary arterial branches. Aorta: Atherosclerotic vascular disease is noted. The thoracic aorta is normal caliber. No aneurysm or dissection is seen. Lungs: Emphysematous changes of the lungs bilaterally. Left lung bases infiltrates may reflect atelectasis or pneumonitis. Correlate with clinical information. The is minimal atelectasis at the posterior right lower lobe. Pleural space: No pleural effusion at the lung bases. There is an apparent IMAGING Patient Name:RAIN MULTANI MR: [id number] : 1940 IMPRESSION: 1. Pulmonary emboli visualized in the right middle and left lower lobes. 2. Slightly elevated RV to LV ratio suggests possible right heart failure. 3. Atelectasis versus pneumonitis at the left lung base. Mild atelectasis at the posterior right lung base. 4. Loculated left pleural effusion. 5. Thoracic compression deformities, as above. To contact [facility] with a general question: [facility] - [phone] For direct physician to physician contact: Physician Hotline - [phone] [facility] ([facility] Facility ID #[id number]) <Electronically signed by Yusra Singh MD in OV>08/06/19 184 Dictated by: Yusra Singh MD Dictated Date/Time:08/06/191731 Transcribed Date/Time: 08/06/191731 Copy to: Mal Gan MD; Daniel Copeland MD; Ramakrishna Isbell MD; Mauricio Mann NP ADDENDUM Addendum created by Trevin Quiroz MD on 08/07/2019 2:21:57 PM EST Case discussed with Dr. Gan at 2:21 PM on 08/07/2019. Addendum created by Yusra Singh MD on 08/06/2019 6:41:31 PM EST The ordering physician Daniel Hayes was contacted by phone at 6:38 PM EST, 08/06/2019 with these results. Initial report created on 08/06/2019 6:35:43 PM EST PROCEDURE INFORMATION: Exam: CT Angiography Chest With Contrast Exam date and time: 08/06/2019 5:32 PM Age: 79 years old Clinical history: Shortness of breath; Additional info: Hemoptysis and SOB. R/O pe TECHNIQUE: Imaging protocol: Computed tomographic angiography of the chest with intravenous contrast. 3D rendering: MIP reconstructed images were created and reviewed. Radiation optimization: All CT scans at this facility use at least one of these dose optimization techniques: automated exposure control; mA and/or kV adjustment per patient size (includes targeted exams where dose is matched to clinical indication); or iterative reconstruction. Contrast material: OMNIPAQUE 350; Contrast volume: 64 ml; Contrast route: IV; COMPARISON: OT CXR PORTAP CHEST AP OR PORT 08/06/2019 3:26 PM FINDINGS: Pulmonary arteries: Pulmonary emboli are seen bilaterally, visualized in the right middle and left lower lobes, occlusive and partially occlusive. Emboli are seen in third and fourth degree pulmonary arterial branches. Aorta: Atherosclerotic vascular disease is noted. The thoracic aorta is normal caliber. No aneurysm or dissection is seen. Lungs: Emphysematous changes of the lungs bilaterally. Left lung bases infiltrates may reflect atelectasis or pneumonitis. Correlate with clinical information. The is minimal atelectasis at the posterior right lower lobe. Pleural space: No pleural effusion at the lung bases. There is an apparent IMAGING Patient Name:RAIN MULTANI MR: [id number] : 1940 loculated pleural effusion on the left, at the superior aspect of the fissure. Heart: There is a slightly elevated RV to LV ratio of 1.18. No cardiomegaly. No pericardial effusion. Lymph nodes: Mediastinal and hilar lymph nodes are upper limits of normal to mildly enlarged. These are nonspecific. Bones/joints: 13 sets of ribs are noted. The uppermost set of ribs likely reflects cervical ribs at the C7 level. There are compression deformities at the T5, T6, and T12 levels which are age-indeterminate. Previous report from 03/28/2019 described compression fractures at T6 and T7 levels, probably relating to a difference in vertebral body numbering. The central superior compression at T12 was not described in the 03/28/2019 report. IMPRESSION: 1. Pulmonary emboli visualized in the right middle and left lower lobes. 2. Slightly elevated RV to LV ratio suggests possible right heart failure. 3. Atelectasis versus pneumonitis at the left lung base. Mild atelectasis at the posterior right lung base. 4. Loculated left pleural effusion. 5. Thoracic compression deformities, as above. To contact [facility] with a general question: [facility] - [phone] For direct physician to physician contact: Physician Hotline - [phone] [facility] ([facility] Facility ID #[id number]) <Electronically signed by Trevin Quiroz MD in OV>08/07/19 1421 Dictated by: Trevin Quiroz MD Dictated Date/Time:08/06/19 173 Transcribed Date/Time: 08/06/191731 Copy to: Mal Gan MD; Daniel Copeland MD; Ramakrishna Isbell MD; Mauricio Mann NP PROCEDURE INFORMATION: Exam: CT Angiography Chest With Contrast Exam date and time: 08/06/2019 5:32 PM Age: 79 years old Clinical history: Shortness of breath; Additional info: Hemoptysis and SOB. R/O pe TECHNIQUE: Imaging protocol: Computed tomographic angiography of the chest with intravenous contrast. 3D rendering: MIP reconstructed images were created and reviewed. Radiation optimization: All CT scans at this facility use at least one of these dose optimization techniques: automated exposure control; mA and/or kV adjustment per patient size (includes targeted exams where dose is matched to clinical indication); or iterative reconstruction. Contrast material: OMNIPAQUE 350; Contrast volume: 64 ml; Contrast route: IV; COMPARISON: OT CXR PORTAP CHEST AP OR PORT 08/06/2019 3:26 PM FINDINGS: Pulmonary arteries: Pulmonary emboli are seen bilaterally, visualized in the right middle and left lower lobes, occlusive and partially occlusive. Emboli are seen in third and fourth degree pulmonary arterial branches. Aorta: Atherosclerotic vascular disease is noted. The thoracic aorta is normal caliber. No aneurysm or dissection is seen. Lungs: Emphysematous changes of the lungs bilaterally. Left lung bases infiltrates may reflect atelectasis or pneumonitis. Correlate with clinical information. The is minimal atelectasis at the posterior right lower lobe. Pleural space: No pleural effusion at the lung bases. There is an apparent loculated pleural effusion on the left, at the superior aspect of the fissure. Heart: There is a slightly elevated RV to LV ratio of 1.18. No cardiomegaly. [facility] IMAGING Patient Name:RAIN MULTANI MR: [id number] : 1940 pericardial effusion. Lymph nodes: Mediastinal and hilar lymph nodes are upper limits of normal to mildly enlarged. These are nonspecific. Bones/joints: 13 sets of ribs are noted. The uppermost set of ribs likely reflects cervical ribs at the C7 level. There are compression deformities at the T5, T6, and T12 levels which are age-indeterminate. Previous report from 03/28/2019 described compression fractures at T6 and T7 levels, probably relating to a difference in vertebral body numbering. The central superior compression at T12 was not described in the 03/28/2019 report. IMPRESSION: 1. Pulmonary emboli visualized in the right middle and left lower lobes. 2. Slightly elevated RV to LV ratio suggests possible right heart failure. 3. Atelectasis versus pneumonitis at the left lung base. Mild atelectasis at the posterior right lung base. 4. Loculated left pleural effusion. 5. Thoracic compression deformities, as above. To contact [facility] with a general question: [facility] - [phone] For direct physician to physician contact: Physician Hotline - [phone] [facility] ([facility] Facility ID #[id number]) Assess/Plan/Problems-Billing Assessment: 79 y/o male known history of Afib, previous history of GI bleed on Eliquis ( discontinued in 04/2019), colon polyp, presented with acute shortness of breath found to have multiple pulmonary emboli and hemoptysis and RV strain. - Patient Problems (1) Pulmonary embolism Code(s): I26.99 - OTHER PULMONARY EMBOLISM WITHOUT ACUTE COR PULMONALE SNOMED Code(s): 20917018 Comment: - Downgraded from ICU 08/08/19 to tele, readmitted to ICU 08/13 for respiratory distress and required vapotherm, downgraded again 08/15/19 - Submassive PE burden, right middle lobe and left lower lobe with RV strain - Heparin drip DCd, on lovenox now and tolerating, no bleeding or hemoptysis noted - May need IVC filter if unable to adequatley anticoagulate - Dr. Granados following closely - Continue supportive O2, currently on 3-4LNC - Needs pulmonary toilet and ambulation (2) NSTEMI (non-ST elevated myocardial infarction) Current Visit: Yes Code(s): I21.4 - NON-ST ELEVATION (NSTEMI) MYOCARDIAL INFARCTION SNOMED Code(s): 12074461 Comment: - In the presence of submassive PE and right heart strain - Trops peaked at 2.22 and trended down - Continue Imdur 90mg, BB and ASA - Continue tele - Not a candidate for cath or stress, continue medical management in light of acute illness and multiple comorbid conditions - Appreciated continued recs by cardiology (3) Hemoptysis Code(s): R04.2 - HEMOPTYSIS SNOMED Code(s): 71041421 Comment: - Resolved - Continue monitoring sputum (4) History of GI bleed Code(s): Z87.19 - PERSONAL HISTORY OF OTHER DISEASES OF THE DIGESTIVE SYSTEM SNOMED Code(s): 148073434 Comment: - 04/2019 on Eliquis for Afib and plavix for stent to right femoral artery; Eliquis at that time was held, plavix was continued - Colonoscopy did show large polyp and the plan to have polypectomy at [facility] once he was off Plavix, however, given current situation, this may have to be re -evaluated when patient is more stable and able to undergo procedure - GI recommends no Plavix at this time, OK with ASA in case they has to urgently intervene (5) Right leg DVT Code(s): I82.401 - ACUTE EMBOLISM AND THOMBOS UNSP DEEP VEINS OF R LOW EXTREM SNOMED Code(s): 505892274 Comment: - US RLE showing DVT in the right profunda femorus - Transitioned to lovenox, as he needs this for NSTEMI as well - IVC filter may still be an option moving forward (6) Atrial fibrillation Code(s): I48.91 - UNSPECIFIED ATRIAL FIBRILLATION SNOMED Code(s): 09311516 Comment: - Paroxysmal - Continue BB for rate control - continue lovenox (7) COPD (chronic obstructive pulmonary disease) Current Visit: No Code(s): J44.9 - CHRONIC OBSTRUCTIVE PULMONARY DISEASE, UNSPECIFIED SNOMED Code(s): 47686538 Comment: - Continue home inhaler and neb treatments - Completed azithromycin, continue cefepime - Had metanebs which encouraged expectoration - Titrating steroids per Dr. Granados - Continue pulmonary toilet and ambulation (8) HTN (hypertension) Code(s): I10 - ESSENTIAL (PRIMARY) HYPERTENSION SNOMED Code(s): 19794177 Comment: - Stable on metoprolol 50 mg bid (9) Anxiety with depression Code(s): F41.8 - OTHER SPECIFIED ANXIETY DISORDERS SNOMED Code(s): 888881106 Comment: - PRN xanax given that his sister during this admission in the ICU room next to the patient - Supportive care (10) Peripheral arterial disease Code(s): I73.9 - PERIPHERAL VASCULAR DISEASE, UNSPECIFIED SNOMED Code(s): 255540467 Comment: - s/p stent placement by Guera Hunter - Per note from Dr. Colon on 08/08, surgeon from [place] suggested to resume antiplatelet as soon as he is stable. Agreed that given his hempotysis to hold off on antiplatelet. He recommend baby Aspirin if unable to resume plavix which he is on (11) DVT prophylaxis Code(s): Z29.9 - ENCOUNTER FOR PROPHYLACTIC MEASURES, UNSPECIFIED SNOMED Code( s): 346044024 Comment: - Heparin gtt for now (12) Full code status Code(s): Z78.9 - OTHER SPECIFIED HEALTH STATUS SNOMED Code(s): 046425030 Comment: - Full code Status and Disposition: Inpatient, fair/progressing. Dispo pending, will need rehab
[2019-08-17] MEDS: Albuterol/Ipratropium NEB.SOL* Albuterol 2.5 MG/Ipratropium 0.5 MG 3 ML INH SCH ×7 (00:25→23:07)
[2019-08-17] MEDS: Cefepime 2 GM in Dextrose(*) 2 GM/50 ML BAG IV SCH ×2 (01:27→09:39)
[2019-08-17] MEDS: Tiotropium Brom/Olodaterol MDI INH SCH ×2 (07:56→19:03)
[2019-08-17] MEDS: Pantoprazole TAB * 40 MG TAB PO SCH ×2 (09:38→20:14)
[2019-08-17] MEDS: methylPREDNISolone SOD 40 MG* 1 ML VIAL IV SCH (09:38)
[2019-08-17] MEDS: Ferrous Sulfate TAB* 325 MG PO SCH ×2 (09:38→20:13)
[2019-08-17] MEDS: Aspirin 81 mg CHEW TAB* 81 MG TAB.CHEW PO SCH (09:38)
[2019-08-17] MEDS: guaiFENesin ER TAB 600 MG PO SCH ×2 (09:38→20:14)
[2019-08-17] MEDS: amLODIPine TAB* 5 MG PO SCH (09:38)
[2019-08-17] MEDS: Isosorbide Mononitrate ER TAB* 30 MG PO SCH (09:38)
[2019-08-17] MEDS: Metoprolol Tartrate TAB* 50 mg PO SCH ×2 (09:38→20:13)
[2019-08-17] MEDS: Cyanocobalamin TAB* 500 MCG PO SCH (09:38)
[2019-08-17] MEDS: Magic M W2 Ben/Maal/Nyst/Lido* 240 ML MOUTHWASH (alt formulation) SWISH SWAL SCH ×4 (10:00→20:13)
--- NOTE | 2019-08-17 10:25 | PN ---
Progress Note - Progress Note Date of Service: 08/17/19 - Pulm f/u note Note: Pt seen and examined at bedside. Pt reports feeling better. Pt appeared to be in good spirits. Is eager about discharge. Able to expectorate secretions with metanebs Active Medications Generic Name Dose Route Start Last Admin Trade Name Freq PRN Reason Stop Dose Admin Acetaminophen 650 mg 08/06/19 20:16 08/10/19 22:44 Tylenol Tab* PO 650 mg Q4H PRN Administration MILD PAIN or TEMP > 100.4 Albuterol/Ipratropium 1 neb 08/12/19 11:00 08/17/19 07:55 Duoneb (Albuterol 2.5 Mg/Ipratropium 0.5 Mg) INH 1 neb [id number] AWAKE ABDOUL Administration Alprazolam 0.25 mg 08/15/19 18:11 08/16/19 22:26 Xanax Tab* PO 0.25 mg TID PRN Administration ANXIETY Amlodipine Besylate 2.5 mg 08/13/19 20:00 08/17/19 09:38 Norvasc Tab* PO 2.5 mg DAILY ABDOUL Administration Aspirin 81 mg 08/12/19 09:00 08/17/19 09:38 Aspirin 81 Mg Chew Tab* PO 81 mg DAILY ABDOUL Administration Atorvastatin Calcium 80 mg 08/11/19 18:00 08/16/19 16:04 Lipitor* PO 80 mg 1700 ABDOUL Administration Bisacodyl 10 mg 08/09/19 11:24 08/13/19 22:16 Dulcolax Supp* DC 10 mg DAILY PRN Administration CONSTIPATION Cyanocobalamin 1,000 mcg 08/09/19 09:00 08/17/19 09:38 Vitamin B12 Tab* PO 1,000 mcg DAILY ABDOUL Administration Enoxaparin Sodium 60 mg 08/15/19 11:00 08/16/19 22:27 Lovenox(*) SUBCUT 60 mg Q12H ABDOUL Administration Ferrous Sulfate 325 mg 08/08/19 21:00 08/17/19 09:38 Ferrous Sulfate Tab* PO 325 mg BID ABDOUL Administration Guaifenesin 600 mg 08/06/19 21:00 08/17/19 09:38 Mucinex* PO 600 mg BID ABDOUL Administration Cefepime HCl 2 gm in 50 mls @ 100 mls/hr 08/07/19 16:00 08/17/19 09:39 Maxipime 2 Gm In Dextrose Duplex (*) IV 100 mls/hr 0000,0800,1600 ABDOUL Administration Isosorbide Mononitrate 90 mg 08/12/19 09:00 08/17/19 09:38 Imdur Er Tab* PO 90 mg DAILY ABDOUL Administration Methylprednisolone Sodium Succinate 40 mg 08/16/19 09:00 08/17/19 09:38 Solu-Medrol 40 Mg IV 40 mg DAILY ABDOUL Administration Metoprolol Tartrate 50 mg 08/10/19 17:00 08/17/19 09:38 Lopressor Tab* PO 50 mg BID ABDOUL Administration Multi-Ingredient Mouthwash/Gargle 5 ml 08/15/19 13:00 08/17/19 10:00 Magic M W2 Brian/Maal/Nyst/Lido* SWISH SWAL 5 ml QID ABDOUL Administration Nitroglycerin 0.4 mg 08/10/19 09:54 08/11/19 05:52 Nitroglycerin Tab 0.4 Mg* SL 0.4 mg Q5M PRN Administration ANGINA Ondansetron HCl 4 mg 08/06/19 20:16 08/10/19 10:22 Zofran Inj* IV 4 mg Q4H PRN Administration NAUSEA/VOMITING Pantoprazole Sodium 40 mg 08/10/19 21:00 08/17/19 09:38 Protonix Tab* PO 40 mg BID ABDOUL Administration Polyethylene Glycol/Electrolytes 17 gm 08/09/19 11:25 08/13/19 20:47 Miralax* PO 17 gm 0800,2100 PRN Administration CONSTIPATION Throat Lozenges 1 diana 08/11/19 16:01 08/13/19 04:43 Chloraseptic Diana* PO 1 diana Q6H PRN Administration SORE THROAT Tiotropium [place]/Olodaterol 1 puff 08/06/19 21:00 08/17/19 07:56 Stiolto Respimat Inh [place] (60 Puff) INH 1 puff BID ABDOUL Administration Vital Signs Temp Pulse Resp BP Pulse Ox 97.6 F 55 20 145/53 99 08/17/19 07:30 08/17/19 07:56 08/17/19 08:00 08/17/19 07:30 08/17/19 07:56 O/E: Pt in NAD, looks comfortable HEENT: PERRLA, mucus membranes moist Lungs: Diminished air entry b/l, no wheeze+, crackles+ at bases CVS: S1, S2+, regular Abd: Soft, BS+, NT Ext: Normal ROM Skin: No rash Neuro: No focal deficits Labs: No new labs I/R: 79 y/o male known history of Afib, previous history of GI bleed on Eliquis (discontinued in 04/2019), colon polyp, presented with acute shortness of breath found to have b/l submassive PE with significant clot burden, pl effusion, and hemoptysis. admitted to ICU due to RV strain (not candidate for TPA given hemoptysis and GI bleed) placed on heparin drip. Pt was transferred to ICU for resp distress 08/13, was noted to have bronchospasm and wheeze. No significant hypoxia noted on ABG, no hypercapnia. Pt improved and back on medical floor. Pt improved significantly since admission. No more episodes of hemoptysis .Is currently on Lovenox He is currently on 3L O2. Able to expectorate secretions with metanebs Pt ambulated in hallway and didnot have significant dyspnea, reports feeling fatigued c/w metanebs, will change frequency to q 6hrs Pt had complicated course with NSTEMI this admission, cardiology f/u appreciated. Possible cath as out pt Was on Heparin drip for PE. Given no active bleeding for few days, switched to Lovenox 08/15. H&H is stable GERD precautions and PPI He has O2 at home, O2 requirements need to be assessed prior to d/c On Cefepime, completed Azithro. Will change steroids to po and taper over next 10 days. Pt might need home PT upon d/c D/w pt and family at bedside.
[2019-08-17] MEDS: Enoxaparin(*) 60 MG/0.6 ML SYR SUBCUT SCH ×2 (11:57→22:35)
--- NOTE | 2019-08-17 13:28 | PN ---
Subjective Date of Service: 08/17/19 Interval History: Mr. Sanchez is feeling well today. He is hoping to go home soon. He offers no complaints. Slept well overnight. Does admit to SOB with exertion, but no significant SOB at rest. He has been up ambulating on 8L. Denies CP. No concerns from nursing. Family History: Unchanged from Admission Social History: Unchanged from Admission Past Medical History: Unchanged from Admission Objective Active Medications: Acetaminophen (Tylenol Tab*) 650 mg PO Q4H PRN MILD PAIN or TEMP > 100.4 Albuterol/Ipratropium (Duoneb (Albuterol 2.5 Mg/Ipratropium 0.5 Mg)) 1 neb INH [id number] AWAKE ABDOUL Alprazolam (Xanax Tab*) 0.25 mg PO TID PRN ANXIETY Amlodipine Besylate (Norvasc Tab*) 2.5 mg PO DAILY ABDOUL Aspirin (Aspirin 81 Mg Chew Tab*) 81 mg PO DAILY ABDOUL Atorvastatin Calcium (Lipitor*) 80 mg PO 1700 ABDOUL Bisacodyl (Dulcolax Supp*) 10 mg MO DAILY PRN CONSTIPATION Cyanocobalamin (Vitamin B12 Tab*) 1,000 mcg PO DAILY ABDOUL Enoxaparin Sodium (Lovenox(*)) 60 mg SUBCUT Q12H ABDOUL Ferrous Sulfate (Ferrous Sulfate Tab*) 325 mg PO BID ABDOUL Guaifenesin (Mucinex*) 600 mg PO BID ABDOUL Cefepime HCl (Maxipime 2 Gm In Dextrose Duplex (*)) 2 gm in 50 mls @ 100 mls/ hr IV 0000,0800,1600 ABDOUL Isosorbide Mononitrate (Imdur Er Tab*) 90 mg PO DAILY [facility] Metoprolol Tartrate (Lopressor Tab*) 50 mg PO BID [facility] Multi-Ingredient Mouthwash/Gargle (Magic M W2 [place]/Maal/Nyst/Lido*) 5 ml SWISH SWAL QID ABDOUL Nitroglycerin (Nitroglycerin Tab 0.4 Mg*) 0.4 mg SL Q5M PRN ANGINA Ondansetron HCl (Zofran Inj*) 4 mg IV Q4H PRN NAUSEA/VOMITING Pantoprazole Sodium (Protonix Tab*) 40 mg PO BID ABDOUL Polyethylene Glycol/Electrolytes (Miralax*) 17 gm PO 0800,2100 PRN CONSTIPATION Prednisone (Deltasone Tab*) 40 mg PO DAILY ABDOUL Throat Lozenges (Chloraseptic Diana*) 1 diana PO Q6H PRN SORE THROAT Tiotropium [place]/Olodaterol (Stiolto Respimat Inh [place] (60 Puff)) 1 puff INH BID ABDOUL Vital Signs - 8 hr 08/17/19 08/17/19 08/17/19 07:30 07:56 08:00 Temperature 97.6 F Pulse Rate 57 55 Respiratory 20 18 20 Rate Blood Pressure 145/53 (mmHg) O2 Sat by Pulse 95 99 Oximetry 08/17/19 11:35 Temperature Pulse Rate 87 Respiratory 18 Rate Blood Pressure (mmHg) O2 Sat by Pulse 95 Oximetry Oxygen Devices in Use Now: Nasal Cannula - 3L Appearance: Elderly male lying in bed in NAD Ears/Nose/Mouth/Throat: Mucous Membranes Moist Neck: NL Appearance and Movements; NL JVP, Trachea Midline Respiratory: Symmetrical Chest Expansion and Respiratory Effort, Clear to Auscultation Cardiovascular: NL Sounds; No Murmurs; No JVD, RRR Abdominal: NL Sounds; No Tenderness; No Distention Extremities: No Edema Neurological: Alert and Oriented x 3 Lines/Tubes/Other Access: Clean, Dry and Intact Peripheral IV Nutrition: Taking PO's Result Diagrams: 08/16/19 05:46 08/16/19 05:46 Assess/Plan/Problems-Billing Assessment: Mr. Sanchez is a 79 yo M with PMH of afib, previous history of GI bleed on Eliquis (discontinued in 04/2019), colon polyp; who presented with acute shortness of breath found to have multiple pulmonary emboli and hemoptysis with RV strain. - Patient Problems (1) Pulmonary embolism Code(s): I26.99 - OTHER PULMONARY EMBOLISM WITHOUT ACUTE COR PULMONALE Comment : - Submassive PE burden, right middle lobe and left lower lobe with RV strain - Downgraded from ICU 08/08/19 to tele, readmitted to ICU 08/13 for respiratory distress and required vapotherm, downgraded again 08/15/19 - Appreciate Pulmonary consult - May need IVC filter if unable to adequatley anticoagulate - Titrate oxygen - Pulmonary toileting, encourage ambulation - Continue Lovenox (2) NSTEMI (non-ST elevated myocardial infarction) Code(s): I21.4 - NON-ST ELEVATION (NSTEMI) MYOCARDIAL INFARCTION Comment: - In the setting of submassive PE and right heart strain - Trops peaked at 2.22 - Appreciate Cardiology consult - Telemetry monitoring - Not a candidate for cath or stress; continue medical management in light of acute illness and multiple comorbid conditions - Continue Imdur, aspirin, metoprolol (3) Right leg DVT Code(s): I82.401 - ACUTE EMBOLISM AND THOMBOS UNSP DEEP VEINS OF R LOW EXTREM Comment: - US RLE showing DVT in the right profunda femorus - IVC filter may still be an option moving forward - Continue Lovenox (4) Hemoptysis Code(s): R04.2 - HEMOPTYSIS Comment: - Resolved - Secondary to PE (5) History of GI bleed Code(s): Z87.19 - PERSONAL HISTORY OF OTHER DISEASES OF THE DIGESTIVE SYSTEM Comment: - April 2019 on Eliquis for afib and Plavix for stent to right femoral artery; Eliquis at that time was held, Plavix was continued - Colonoscopy did show large polyp and the plan to have polypectomy at [facility] once he was off Plavix, however, given current situation, this may have to be re -evaluated when patient is more stable and able to undergo procedure - GI recommends no Plavix at this time, fine to continue with aspirin (6) Atrial fibrillation Code(s): I48.91 - UNSPECIFIED ATRIAL FIBRILLATION Comment: - Paroxysmal - Continue metoprolol, Lovenox (7) COPD (chronic obstructive pulmonary disease) Code(s): J44.9 - CHRONIC OBSTRUCTIVE PULMONARY DISEASE, UNSPECIFIED Comment: - With exacerbation and pleural effusion noted on CXR - Pulmonary toileting and ambulation - Metanebs helping with expectoration - Completed azithromycin (5 days) and cefepime (10 days) - Continue prednisone, Stiolto, nebs (8) HTN (hypertension) Code(s): I10 - ESSENTIAL (PRIMARY) HYPERTENSION Comment: - Slightly hypertensive - Continue metoprolol; increase amlodipine (9) Peripheral arterial disease Code(s): I73.9 - PERIPHERAL VASCULAR DISEASE, UNSPECIFIED Comment: - S/p stent placement by [facility] Hunter - Per note from 08/08, surgeon from [place] suggested to resume antiplatelet as soon as he is stable, but agreed that given his hempotysis to hold off on antiplatelet; recommend baby Aspirin if unable to resume plavix which he is on - Continue aspirin (10) Anxiety with depression Code(s): F41.8 - OTHER SPECIFIED ANXIETY DISORDERS Comment: - Patient's sister during this admission in the ICU - Supportive care - Continue alprazolam (11) DVT prophylaxis Code(s): Z29.9 - ENCOUNTER FOR PROPHYLACTIC MEASURES, UNSPECIFIED Comment: - Lovenox (12) Full code status Code(s): Z78.9 - OTHER SPECIFIED HEALTH STATUS Comment: Status and Disposition: Inpatient. Anticipate d/c to [facility] when medically stable. Attending: Lulú Sinclair
[2019-08-17] MEDS: Atorvastatin* 80 MG TAB PO SCH (17:17)
[2019-08-18] MEDS: Albuterol/Ipratropium NEB.SOL* Albuterol 2.5 MG/Ipratropium 0.5 MG 3 ML INH SCH ×3 (03:25→10:34)
[2019-08-18 06:50] LABS: Hematocrit 32 % (42-52); Hemoglobin 10.4 g/dL (14.0-18.0); Mean Corpuscular HGB Conc 33 g/dL (31-36); Mean Corpuscular Hemoglobin 27 pg (27-31); Mean Corpuscular Volume 83 fL (80-94); Mean Platelet Volume 7.5 fL (7.4-10.4); Platelet Count 339 10^3/uL (150-450); Red Blood Count 3.82 10^6 /uL (4.18-5.48); Red Cell Distribution Width 20 % (10-15); White Blood Count 14.8 10^3/uL (3.5-10.8)
[2019-08-18 07:17] LABS: ABS Lymphocytes 0.9 10^3/ul (1.0-4.8); ABS Monocytes 1.6 10^3/ul (0-0.8); ABS Neutrophils 12.3 10^3/ul (1.5-7.7); Eosinophil % 0.2 %
[2019-08-18] MEDS: Tiotropium Brom/Olodaterol MDI INH SCH (07:40)
[2019-08-18] MEDS ORDERED: amLODIPine TAB* 5 MG PO SCH (09:00)
[2019-08-18] MEDS: Cyanocobalamin TAB* 500 MCG PO SCH (09:15)
[2019-08-18] MEDS: Isosorbide Mononitrate ER TAB* 30 MG PO SCH (09:15)
[2019-08-18] MEDS: Metoprolol Tartrate TAB* 50 mg PO SCH (09:15)
[2019-08-18] MEDS: Aspirin 81 mg CHEW TAB* 81 MG TAB.CHEW PO SCH (09:15)
[2019-08-18] MEDS: guaiFENesin ER TAB 600 MG PO SCH (09:15)
[2019-08-18] MEDS: Ferrous Sulfate TAB* 325 MG PO SCH (09:15)
[2019-08-18] MEDS: Pantoprazole TAB * 40 MG TAB PO SCH (09:15)
[2019-08-18] MEDS: Magic M W2 Ben/Maal/Nyst/Lido* 240 ML MOUTHWASH (alt formulation) SWISH SWAL SCH ×2 (09:16→13:27)
[2019-08-18] MEDS: Enoxaparin(*) 60 MG/0.6 ML SYR SUBCUT SCH (11:40)
[2019-08-18] MEDS ORDERED: Furosemide IV* 10 MG/ML VIAL (40 MG) IV ONE (12:17)
[2019-08-18 12:55] VITALS: BP 116/53
--- NOTE | 2019-08-18 22:14 | DS ---
CC: Mauricio Mann NP; Dr. Inderjit Montes.* DISCHARGE SUMMARY: DATE OF ADMISSION: 08/06/19 DATE OF DISCHARGE: 08/18/19 PRIMARY CARE PHYSICIAN: Mauricio Mann NP WALLPAPERER: Dr. Inderjit Montes. ATTENDING PHYSICIAN: Dr. Dung Swann.* (DICTATED BY [employer]ERSON [employer] NP) PRIMARY DIAGNOSES: 1. Pulmonary embolism with right ventricular strain. 2. Right lower extremity deep vein thrombosis. 3. Non-ST elevation myocardial infarction. 4. Hemoptysis due to pulmonary embolism. 5. Atrial fibrillation with rapid ventricular response. 6. Community acquired pneumonia. 7. Acute on chronic hypoxic respiratory failure. 8. Sepsis. SECONDARY DIAGNOSES: 1. History of gastrointestinal bleed. 2. Chronic obstructive pulmonary disease. 3. Hypertension. 4. Peripheral artery disease. 5. Anxiety. 6. Depression. STUDIES WHILE IN THE HOSPITAL: 1. Chest x-ray on 08/06/19, reads as hyperinflation with bibasilar pleural parenchymal scarring, stable. No active cardiopulmonary disease. 2. EKG on 08/06/19 shows AFib with a rate of 130. 3. ST depression in V2 through V6. 4. Chest thorax CTA on 08/06/19 reads as pulmonary emboli visualized in the right middle and left lower lobes. Slightly elevated RV to LV ratio suggests possible right heart failure. Atelectasis versus pneumonitis at the left lung base. Mild atelectasis at the posterior right lung base. Loculated pleural effusion. Thoracic compression deformity described in the body of the report. 5. Bilateral lower extremity Doppler on 08/06/19 reads as, this study is positive for acute non-occlusive thrombus in the right profunda femoris vein. No evidence of left lower extremity DVT. 6. Transthoracic echocardiogram on 08/07/19 reads as there is trace TR. Systolic pressure in the pulmonary arteries is mildly to moderately increased. The peak pressure during systole by Doppler is 49 mmHg. Technically difficult study due to rapid atrial fibrillation and poor echocardiogram windows. There appears to be mild biventricular systolic dysfunction. There is no hemodynamically significant aortic (possibility of mild AF quantitatively). Mitral or tricuspid valve disease on limited study. 7. Chest x-ray on 08/09/19 reads as left basilar atelectasis with no definite pneumonia. No changes noted since previous exam on 08/06/19. 8. EKG on 08/10/19 shows normal sinus rhythm versus atrial tachycardia, ST depression in V2 through V6, rate of 92, QTc 467. 9. Transthoracic echocardiogram on 08/10/19 reads as the left ventricular cavity size is normal, systolic function is normal. The estimated ejection fraction is 55% to 60% with basal to mid inferior hypokinesis. The right ventricular cavity size is mildly dilated. The systolic function is mildly reduced. Limited study compared to prior full study from 08/07/19. LVEF is now normal and no longer tachycardiac. 10. EKG on 08/11/19 shows normal sinus rhythm with a rate of 71, occasional PACs, ST depression resolved, QTc 430. 11. Chest x-ray on 08/12/19 reads as new bibasilar infiltrates and small bilateral pleural effusions. 12. EKG on 08/12/19 shows normal sinus rhythm with a rate of 73, QTc 440. 13. Chest x-ray on 08/14/19 reads as bibasilar air space disease. No changes noted since 08/12/19. 14. EKG on 08/15/19 shows normal sinus rhythm with a rate of 63. QTc 428. CONSULTATIONS WHILE IN THE HOSPITAL: 1. Dr. Granados from Pulmonology. 2. Dr. Isbell from Cardiology. 3. Dr. Montes from Cardiology. HISTORY OF PRESENT ILLNESS AND HOSPITAL COURSE: Mr. Sanchez is a 79-year-old male with past medical history of hypertension; hyperlipidemia; PVD; COPD, on 2 L at night; and atrial fibrillation with GI bleed on anticoagulation, who presented to the emergency room on 08/06/19 with complaints of shortness of breath. Please see the history and physical by Merced Noriega NP, for complete summary of the events leading up to this hospitalization. In short, the patient was recently hospitalized at this facility for pneumonia. During this stay, he developed atrial fibrillation and was placed on Eliquis. He subsequently developed a GI bleed and since that time had been off anticoagulation. He is known to have a large rectal polyp for which he was scheduled to have treated in [place]. Three days prior to presentation, he developed hemoptysis and subsequently developed shortness of breath. In the emergency room, the patient had imaging as noted above and was noted to have bilateral pulmonary embolism with RV strain. The patient was started on a heparin drip and admitted by the hospitalist service to the intensive care unit. The patient was noted to have rapid ventricular response secondary to pulmonary embolism, which was controlled with metoprolol. The patient was placed on vancomycin and cefepime for treatment of pneumonia and pleural effusion. Cardiology and Pulmonology were consulted. The patient did show improvement and did not experience any significant right-sided heart failure and so was transferred out of the ICU. On 08/08/19, he was doing well on the floor initially, though ultimately went into respiratory distress on 08/13/19, during which time he was transferred back down to the intensive care unit and placed on Vapotherm. He remained down there for 2 days and was transferred back to the floor on 08/15/19. Heparin drip was stopped and the patient was changed over to therapeutic Lovenox. The patient did have troponins which ultimately peaked at 2.22. Cardiology was consulted and it was determined that the patient experienced an NSTEMI in the setting of submassive PE. I will also note that the patient had been taken off of Plavix while in the hospital. Cardiology indicated that the patient was at this time not a candidate for a cardiac catheterization or stress test and recommended medical management. The patient did not experience any episodes of GI bleeding while here in the hospital on anticoagulation. The case was also discussed with the patient's vascular surgeon at [place] who recommended resuming antiplatelet therapy as soon as possible and recommended placing the patient on aspirin if he was unable to safely tolerate Plavix. After being taken off Vapotherm, the patient did require 8 L of oxygen to maintain saturations, though was eventually weaned down. At this point today, he is saturating in the low 90s on room air while at rest though he is still requiring 3 L of oxygen to maintain saturations during ambulation. At this point, the patient does certainly have a complex case. Again, he does have a history of GI bleed while on Eliquis for atrial fibrillation though at this point now the patient certainly needs to be on anticoagulation for VTE as well as for AFib and so ultimately, at this point, the benefits of anticoagulation outweigh the risks. Again, the patient has been on anticoagulation since he was admitted and has not experienced any episodes of GI bleed, hemoptysis that was present initially resolved. I did speak with Cardiology again today who advised that the patient should be placed back on a NOAC as he has done well while on Lovenox here in the hospital. Ultimately for pneumonia, the patient completed 5 days of azithromycin and 10 days of cefepime. Amlodipine was added for blood pressure control. The patient reports feeling well today and is anxious to return home. On exam, he is alert and oriented x4. He has no focal neurological deficits. His heart has a regular rate and rhythm without murmurs, rubs, or gallops. Lungs are clear to auscultation without rhonchi, wheezes, or rubs. There is 1+ pitting to bilateral lower extremities for which the patient has received 1 dose of IV Lasix today. Mr. Sanchez is stable for discharge today. Most recent vitals are as follows: Temp 97.4, heart rate 76, respiratory rate 20, oxygen saturation 93% on room air , blood pressure 116/53. DISCHARGE MEDICATIONS: New medications: 1. Amlodipine 5 mg p.o. daily. 2. Aspirin 81 mg p.o. daily. 3. Vitamin B12 1000 mcg p.o. daily. 4. Ferrous sulfate 325 mg p.o. b.i.d. 5. Isosorbide mononitrate ER 90 mg p.o. daily. 6. Nitro 0.4 mg sublingual q.5 minutes p.r.n. angina. 7. Pantoprazole 40 mg p.o. b.i.d. 8. Prednisone taper (30 mg for 3 days, 20 mg for 3 days and then 10 mg for 3 days. 9. Xarelto 15 mg p.o. b.i.d. x 21 days. 10. Xarelto 20 mg p.o. daily after loading dose. Changed medication: 1. Metoprolol tartrate 50 mg p.o. b.i.d. (previously was 100 mg b.i.d.) Continued medications: 1. Mucinex 600 mg p.o. b.i.d. 2. Ipratropium albuterol 1 neb q.4 hours. 3. Simvastatin 40 mg p.o. daily. 4. Stiolto Respimat 1 puff b.i.d. 5. Combivent Respimat 1 puff b.i.d. Discontinued medications: 1. Augmentin. 2. Plavix. 3. Previous prednisone taper. DISCHARGE PLAN: Mr. Sanchez will be discharged home. ACTIVITY: Will be as tolerated. The patient will need to wear 3 L of oxygen while ambulating and at night. DIET: Heart healthy. MEDICATIONS: Are noted above. The patient has been stated on multiple medications by Cardiology due to his NSTEMI here in the hospital. He will need to complete a prednisone taper as he has been on prednisone while here in the hospital. Amlodipine has been added for blood pressure control. The patient will be started on Xarelto with 15 mg b.i.d. loading dose for 21 days and then 20 mg daily thereafter. I did speak at length with the patient and his daughter about the risks of bleeding while on Xarelto. He does understand that he is at a high risk of bleeding though is agreeable to anticoagulation as he does understand the significant risk associated with atrial fibrillation and PE/ DVT. He is aware that if he experiences any bleeding, he should present to the emergency room immediately. FOLLOW UP: He will need to follow up with his primary care provider in the next 4 to 7 days. He should follow up with his community product specialist, Dr. Montes, in the next 1 to 2 weeks. He additionally should follow up with Dr. Michelle as previously instructed and his hand rug braider in [place] as previously instructed. The patient should return to the emergency room or nearest hospital for any worsening of symptoms, shortness of breath, lightheadedness, dizziness, chest discomfort, high fevers, chills, night sweats, loss of consciousness, or any other worrisome signs or symptoms. DISCHARGE CONDITION: Stable. DISCHARGE DISPOSITION: Home. This is a summarized report of a complex medical history and hospital stay. For further details, please see the entire medical record. TIME SPENT: Approximately 65 minutes was spent on this discharge. [employer], [employer] [id number]/CPS #: [id number] [place]
== END 2019-08-18 15:50 | disposition home or self-care (01) | DRG 175 ==
LOC: ED 13:56 → ICU 20:20 → MEDTELE 08-08 19:51 → ICU 08-13 12:14 → MEDTELE 08-15 16:13
PROVIDERS: ADMIT Internal Medicine Critical Care Medicine; ATTEND Internal Medicine
PROC: B24BZZ4 Ultrasonography of Heart with Aorta, Transesophageal (ICD-10-PCS; principal; 2019-08-07)
DX: I26.99 Other pulmonary embolism without acute cor pulmonale (principal); A41.9 Sepsis, unspecified organism; J18.9 Pneumonia, unspecified organism; I21.4 Non-ST elevation (NSTEMI) myocardial infarction; J96.21 Acute and chronic respiratory failure with hypoxia; J44.0 Chronic obstructive pulmonary disease with (acute) lower respiratory infection; R04.2 Hemoptysis; I82.411 Acute embolism and thrombosis of right femoral vein; J90 Pleural effusion, not elsewhere classified; E78.5 Hyperlipidemia, unspecified; I73.9 Peripheral vascular disease, unspecified; I71.9 Aortic aneurysm of unspecified site, without rupture; M19.90 Unspecified osteoarthritis, unspecified site; I48.0 Paroxysmal atrial fibrillation; D50.9 Iron deficiency anemia, unspecified; K21.9 Gastro-esophageal reflux disease without esophagitis; F41.8 Other specified anxiety disorders; I25.10 Atherosclerotic heart disease of native coronary artery without angina pectoris; Z88.2 Allergy status to sulfonamides; Z79.82 Long term (current) use of aspirin; Z79.01 Long term (current) use of anticoagulants; Z79.899 Other long term (current) drug therapy; Z95.5 Presence of coronary angioplasty implant and graft; Z87.891 Personal history of nicotine dependence; Z88.1 Allergy status to other antibiotic agents
CPT/HCPCS: 36415; 36600; 71045; 71046; 71275; 80048; 80053; 80061; 80202; 81003; 81015; 82330; 82565; 82803; 83605; 83735; 84100; 84484; 84520; 85025; 85027; 85610; 85730; 86850; 86900; 86901; 87040; 87070; 87086; 87205; 87641; 93005; 93306; 93308; 93970; 94640; 94667; 94668; 96365; 96367; 99285; A9270-GY; G8978-GP-CJ; G8979-GP-CI; J0456; J0692; J1644; J1650; J1940; J2405; J2920; J2930; J3370; J3490; J3535; J7512; Q9967

== ENCOUNTER 2019-08-19 18:02 | Emergency (ER) | payer MEDICARE ==
--- OUTSIDE RECORDS SUMMARY | 2019-08-19 18:30 | XMS REPORT | Continuity of Care Document ---
:1940 External Reference #:[id number] Author Name Consuelo Mann N.P. Address [address] [facility] [address] [place] [address] Care Team Providers Name Role Phone aGl Stover MD - Family Medicine Care Team Information Product Director [phone] Problems Active Problems Provider Date Benign essential hypertension Gal Stover M.D. Onset: 01/15/2012 Mixed hyperlipidemia Gal Stover M.D. Onset: 01/15/2012 Benign prostatic hypertrophy without outflow Gal Stover M.D. Onset: obstruction Low back pain Gal Stover M.D. Onset: 01/15/2012 Peptic reflux disease Gal Stover M.D. Onset: 01/15/2012 Allergic rhinitis aGl Stover M.D. Onset: 01/16/2012 After-cataract with vision obscured following Gal Stover M.D. Onset: extraction of cataract Osteoarthritis Gal Stover M.D. Onset: 10/03/2012 Chronic obstructive lung disease Gal Stover M.D. Onset: 10/03/2012 Chronic conjunctivitis Gal Stover M.D. Onset: 03/29/2015 Hearing loss Gal Stover M.D. Onset: 05/10/2015 Essential hypertension Gal Stover M.D. Onset: 06/22/2015 Acute exacerbation of chronic obstructive Onset: 04/23/2019 airways disease with asthma Social History Type Date Description Comments Sex Unknown Tobacco Use Start: Unknown Current Cigarette Smoker pt has been smoking a pack a day for 50 years ETOH Use Occasionally consumes alcohol Tobacco Use Start: Unknown Patient is a current smoker, smokes every day Smoking Status Reviewed: 05/26/19 Patient is a current smoker, smokes every day Allergies, Adverse Reactions, Alerts Active Allergies Reaction Severity Comments Date Sulfa Antibiotics 07/19/2012 Tobramycin 10/07/2014 Inactive Allergies NKDA 01/16/2012 NKDA 01/16/2012 Medications Active Medications SIG Qnty Indications Ordering Date Provider Amoxicillin/Clavulana 1 tab by mouth 60tabs J01.40 [facility] 08/01/2019 te Potassium twice a day M., M.D. 875-125mg Tablets Lorazepam 1/2-1 tab by 28tabs J44.9 [facility] 06/25/2019 0.5mg Tablets mouth four times M., M.D. a day as needed sob/anxiety Ipratropium one inhalation 180[address] [facility] 06/23/2019 [place]/Albuterol treatment every 4 M., M.D. Sulfate hour 0.5-2.5(3)mg/3ML Solution Prednisone 2 tab by mouth 20tabs J18.9 [facility] 06/20/2019 20mg Tablets daily 4 M., M.D. days,30x3d,20x2d, 10x7d Hydrocodone-Acetamino 1 tab by mouth 60tabs J18.9 [facility] 06/20/2019 phen three times a day M., M.D. 7.5-325mg Tablets as needed Fluconazole 1 tab by mouth 2tabs J18.9 [facility] 06/20/2019 150mg today and january MLuis MLuisDLuis Tablets repeat iLAST Day Of Abx Erythromycin apply thin layer 7gm [facility] 05/26/2019 5mg/GM on lesion under l Marla MSurinder. Ointment eye 4x daily x 2 weeks Oxygen Generator for continuous J44.9 [facility]2019 oxygen titirate Nury Gutiérrez. up to 4L to maintain o2 sat between 88-96% Nicoderm CQ Uad 28units F17.293 [facility] 05/21/2019 7mg/24HR Nelly Gutiérrez Patches 24HR Aspirin 81 Low Dose 1 by mouth every 90units I10 [facility] 03/10/2019 morning M. MLuisDLuis 81mg Chewtabs Bacitracin Zinc apply to wound on 28.350gm L89.312 [facility] 03/07/2019 buttocks bid x 14 M. MLuisD. 500Unit/GM Ointment days. after washing with soap and water and pad dry. Combivent Respimat 1 puff twice a 12gm J44.9 [facility] 11/21/2018 day MNelly Smith 20-100mcg/Act Aerosol Prednisolone Acetate 1 drops both eyes 10ml H10.45 [facility] 08/06/2018 1% twice a day as Nelly Gutiérrez Suspension needed Nebulizer use as directed 1units J44.9 [facility] 01/21/2018 Device MLuis MGallo Nebulizer use with 2units J44.9 [facility] 01/21/2018 Kit/Tubing/Mouthpiece nebulizer every 4 M., M.D. hours as needed Kit Betamethasone apply to affected 45gm L20.9 [facility] 12/05/2017 Dipropionate area ( Face) MNelly Smith 0.05% three times a day Cream as needed Simvastatin 1 by mouth every 90tabs E78.2 [facility] 03/27/2017 40mg night M., M.D. Tablets Metoprolol Tartrate 1 tab by mouth 90tabs I10 [facility] 11/16/2016 every day M., M.D. 100mg Tablets Losartan tab one by mouth 90tabs I10 [facility] 03/31/2014 Potassium/Hydrochloro every in the M., M.D. thiazide morning 100-25mg Tablets R60.0 I87.2 Omeprazole 1 by mouth every 90caps K21.0 [facility], 01/16/[address] burton Villegas K30 History Medications Azithromycin 1 tab by mouth 10tabs J18.9 Gal Stover, 06/20/2019 - 500mg every day x 10 M.D. 07/01/2019 Tablets days Guiatuss 30ml by mouth 946ml Gal Stover, 05/27/2019 - 100mg/5ML Syrup twice a day x M.D. 06/19/2019 10 days Azithromycin 1 tab by mouth 10tabs Gal Stover, 03/17/2019 - 500mg every day x 10 M.D. 04/22/2019 Tablets days Amoxicillin/Clavulanat 1 tab by mouth 14tabs J02.9 Gal Stover, 2018 - e Potassium twice a day M.D. 03/16/2019 875-125mg Tablets Medications Administered in Office Medication SIG Qnty Indications Ordering Provider Date Solu-Medrol Up To 40MG Consuelo Mann N.PLuis 06/25/2019 Injection Rocephin 250 Consuelo Mann N.PLuis 06/23/2019 Injection Solu-Medrol Up To 40MG Romeo Richards.PLuis 06/20/2019 Injection Rocephin 250 Consuelo Mann N.PLuis 06/20/2019 Injection Solu-Medrol Up To 40MG Consuelo Mann N.PLuis 10/21/2018 Injection Rocephin 250 Gal Stover M.D. 07/30/2018 Injection Rocephin 250 Consuelo Mann N.PLuis 05/01/2018 Injection Solu-Medrol 125MG Gal Stover M.D. 12/20/2017 Injection Rocephin 250 Gal Stover M.D. 12/20/2017 Injection Admin Of Pneumovax Gal Stover M.D. 08/19/2015 Injection B12 Gal Stover M.D. 08/17/2011 Injection Immunizations CPT Code Status Date Vaccine Lot # [id number] Given 07/11/2019 Flu Virus Vaccine, Quadrivalent, Slit Virus, Im [id number] Use U-Flu Given 07/02/2018 Influenza,Unspecified [id number] Given 07/11/2016 Flu Vaccine 3+Yrs Old(Fluzone) 48865 Given 12/02/2015 Zoster Shingles Vaccine For Injection Q2038 Given 08/19/2015 Flu Vaccine 3+Yrs Old(Fluzone) [id number] Given 08/19/2015 Pneumovax [id number] 11521 Given 08/19/2015 Flu Vaccine [id number] Given 06/27/2014 Flu Vaccine Q2038 Given 07/31/2013 Flu Vaccine 3+Yrs Old(Fluzone) [id number] Q2038 Given 07/04/2012 Flu Vaccine 3+Yrs Old(Fluzone) [id number] 82359 Given 09/16/2009 Admin Of Influenza [id number] 80569 Given 08/08/2006 Flu Vaccine 75710 Given 07/31/2003 Pneumovax [id number] Vital Signs Date Vital Result Comment 08/01/2019 10:48am BP Systolic 142 mmHg BP Diastolic 64 mmHg Height 68 inches 5'8" Weight 152.00 lb BMI (Body Mass Index) 23.1 kg/m2 Heart Rate 88 /min Respiratory Rate 16 /min 07/11/2019 1:05pm BP Systolic 122 mmHg BP Diastolic 69 mmHg Height 68 inches 5'8" Weight 151.00 lb BMI (Body Mass Index) 23.0 kg/m2 Heart Rate 109 /min Respiratory Rate 18 /min Results Test Acquired Date Facility Test Result H/L Range Note Protein 07/28/2019 [facility] Total 6.8 g/dL 6.3 - 7.9 Electrophoresis Protein(Pe p) Albumin 3.3 g/dL Abnormal 3.4-4.7 Alpha-1 Globulin 0.3 g/dL 0.1-0.3 Alpha-2 Globulin 1.0 g/dL 0.6-1.0 Beta Globulin 1.1 g/dL 0.7-1.2 Gamma Globulin 1.2 g/dL 0.6-1.6 Albumin/Globulin Ratio 0.93 Impression See Comment 1 CBC Auto Diff 07/28/2019 [facility] White Blood 15.3 10^3/uL High 3.5 -10.8 Count Red Blood Count 5.00 10^6/uL Normal 4.18-5.48 Hemoglobin 13.4 g/dL Low 14.0-18.0 Hematocrit 43 % Normal 42-52 Mean Corpuscular Volume 86 fL Normal 80-94 Mean Corpuscular Hemoglobin 27 pg Normal 27-31 Mean Corpuscular HGB Conc 31 g/dL Normal 31-36 Red Cell Distribution Width 19 % High 10-15 Platelet Count 394 10^3/uL Normal 150-450 Mean Platelet Volume 7.3 fL Low 7.4-10.4 Abs Neutrophils 14.1 10^3/uL High 1.5-7.7 Abs Lymphocytes 0.7 10^3/uL Low 1.0-4.8 Abs Monocytes 0.5 10^3/uL Normal 0-0.8 Abs Eosinophils 0.0 10^3/uL Normal 0-0.6 Abs Basophils 0.0 10^3/uL Normal 0-0.2 Abs Nucleated RBC 0.0 10^3/uL Granulocyte % 92.0 % Lymphocyte % 4.4 % Monocyte % 3.4 % Eosinophil % 0.1 % Basophil % 0.1 % Nucleated Red Blood Cells % 0.1 Laboratory test finding 07/28/2019 [facility] Ferritin 36.9 ng/mL Normal 24-336 Folic Acid (Folate) > 20.00 ng/mL >3.99 Vitamin B12 270 pg/mL Normal 180-914 2 Iron & Iron Binding Capacity 07/28/2019 [facility] Iron 43 g/dL Low 50-212 Unsaturated Iron Binding < 331 g/dL Total Iron Binding Capacity 346 g/dL Normal 250-450 Transferrin 247 mg/dL Normal 203-362 % Iron Saturation 12 % Low 15-55 Laboratory 06/20/2019 [facility] TSH,Ultrasensitive @ 3.660 (0.360- 4.170) test finding Beau SANTOS mIU/L (607)- - Free Thyroxine @ 1.34 ng/dL (0.76-1.46) CBC With Diff 06/20/2019 [facility] WBC 15.0 10*3/uL High (4.1-11.0) Beau SANTOS (607)- - RBC 4.02 10*6/uL Low (4.60-6.10) HGB 11.8 g/dL Low (13.5-18.0) HCT 36.8 % Low (41.0-53.0) MCV 91.4 fL (80.0-95.0) MCH 29.3 pg (27.0-32.0) MCHC 32.1 g/dL (32.0-36.0) RDW 16.3 % High (10.5-14.5) PLT 500 10*3/uL High (150-450) MPV 7.5 fL (7.1-10.7) Neut % 82.0 % High (35.0-75.0) Band % 1.0 % (0.0-11.0) Lymph % 3.0 % Low (16.0-52.0) Sibley % 14.0 % High (0.0-8.0) Neut # 12.3 10*3/uL High (1.8-7.7) Band # 0.2 10*3/uL Lymph # 0.5 10*3/uL Low (1.2-4.8) Sibley # 2.1 10*3/uL High (0.0-0.8) Aniso 1+ Poik 1+ Poly 1+ Large PLT 1+ Diff Comment SLIDE REVIEWED B <SEE NOTE> 3 CMP 06/20/2019 [facility] Sodium 132 mmol/L Low (136-145) [address] (607)- - Potassium 4.9 mmol/L (3.6-5.2) Chloride 99 mmol/L Low (100-108) Co2 22 mmol/L (22-31) Anion Gap 11 mmol/L (7-16) Urea Nitrogen 15 mg/dL (7-24) Creatinine 1.40 mg/dL High (0.80-1.30) BUN/Creat Ratio 10.7 RATIO (10.0-20.0) Glucose 99 mg/dL (70-99) Calcium 9.0 mg/dL (8.4-10.2) Total Protein 7.0 g/dL (6.4-8.2) Albumin 2.7 g/dL Low (3.2-4.5) Globulin 4.3 g/dL (2.7-4.3) Alb/Glob Ratio 0.6 RATIO Alkaline Phosphatase 77 U/L (45-117) Bilirubin,Total 1.2 mg/dL High (0.0-1.0) Ast (Sgot) 32 U/L (11-39) Alt (SGPT) 27 U/L (12-78) GFR 49 ml/min/1.73m2 Low (>59) GFR ( Amer) 59 ml/min/1.73m2 Low (>59) GFR Interpretation <SEE NOTE> 4 Lipid 06/20/2019 [facility] Cholesterol @ 125 mg/dL (0-200) [address] (607)- - Triglyceride @ 90 mg/dL (30-200) HDL Cholesterol @ 36 mg/dL Low (>40) 5 Chol/HDL Ratio 3.5 RATIO 6 LDL Chol (Calc) 71 mg/dL (<130) 7 Laboratory 05/15/2019 [facility] SEE RESULT 8 test finding Pathology BELOW Order Laboratory 05/14/2019 [facility] SEE RESULT 9 test finding Pathology BELOW Order Laboratory 05/13/2019 [place] Occult POSITIVE Abnormal Negative 10, test finding Blood,Stool 11 Ua RFX Micro & 05/13/2019 [place] Urine Color YELLOW Yellow Culture II Urine Clarity CLEAR Clear Urine Glucose - Dipstick NEGATIVE mg/dL Negative Urine Bilirubin - Dipstick NEGATIVE Negative Urine Ketone NEGATIVE mg/dL Negative Urine Specific [place] 1.010 Normal 1.010-1.030 Urine Blood NEGATIVE Negative Urine PH 6.5 Normal 6.5-7.5 Urine Protein - Dipstick NEGATIVE mg/dL Negative Urine Urobilinogen - Dipstick 0.2 E.U./dL Normal 0.2-1.0 Urine Nitrite - Dipstick NEGATIVE Negative Urine Leuk Esterase NEGATIVE Negative Source: URINE, CLEAN CAT <SEE NOTE> 12 CBS W/Automated Diff 05/13/2019 [place] White Blood Count 12.1 K/uL High 3.4-10.5 Red Blood Count 2.94 M/uL Low 4.20-5.80 Hemoglobin 9.8 gm/dL Low 12.8-17.0 Hematocrit 30.7 % Low 38.0-48.0 Mean Cell Volume 104.4 fl High 80.0-96.0 Mean Corpuscular HGB 33.3 pg High 27.0-33.0 Mean Corpuscular HGB Conc 31.9 g/dL Normal 31.7-36.0 Platelet Count 210 K/uL Normal 155-360 Red Cell Distri Width SD 57.2 fl High 36-51 Red Cell Distri Width %CV 15.0 % Normal 11.6-15.8 Mean Platelet Volume 8.9 fl Normal 6.6-10.6 Neut% 87.9 % High 33.0-73.0 Lymph % 5.6 % Low 20.0-42.0 Sibley % 4.6 % Normal 0.0-10.0 Eo% 0.6 % Normal 0.0-6.6 Bas% 0.2 % Normal 0.0-1.1 Immature Grans 1.1 % Normal 0.0-5.0 NRBC % 0.0 /100WBC < 10/ 100 WBC Neut# 10.68 K/uL High 1.8-7.0 Lymph # 0.68 K/uL Low 1.0-4.0 Sibley # 0.56 K/uL Normal 0.0-0.8 Eos # 0.07 K/uL Normal 0.0-0.5 Baso # 0.02 K/uL Normal 0.0-0.1 Immature Grans Absolute 0.13 K/uL NRBC # 0.00 K/uL Lactic Acid 05/13/2019 [place] Lactic Acid 2.8 mmol/L Critical high 0.4- 1.9 Lab Reflex >2.0 for Sepsis? Y Comprehensive Metabolic Panel 05/13/2019 [place] Glucose 105 mg/dL Normal 74-106 BUN 18 mg/dL Normal 7-18 Creatinine 1.2 mg/dL Normal 0.6-1.3 Glom Filtration Rate, Estimate >60 mL/min >60 If >60 mL/min >60 13 BUN/Creat 15.0 ratio Sodium 139 mmol/L Normal 136-145 Potassium 4.6 mmol/L 3.5-5.1 Chloride 104 mmol/L Normal 98-107 Carbon Dioxide 27 mmol/L Normal 21-32 Anion Gap 8 mEq/L Normal 8-16 Calcium 9.2 mg/dL Normal 8.5-10.1 Total Protein 6.2 g/dL Low 6.4-8.2 Albumin 2.7 g/dL Low 3.4-5.0 Globulin 3.5 g/dL Normal 1.9-4.3 Alb/Glob 0.8 ratio Bilirubin,Total 0.6 mg/dL Normal 0.2-1.0 Sgot/Ast 18 U/L Normal 15-37 SGPT/Alt 29 U/L Normal 12-78 Alkaline Phosphatase 51 U/L Normal 45-117 Laboratory test finding 05/13/2019 [place] Lipase 224 U/L Normal 56-289 NT-proBNP 2852.0 pg/mL High <450 Laboratory test 05/12/2019 [place] Occult POSITIVE Abnormal Negative 14 , 15 finding Blood,Stool Laboratory test 05/11/2019 [place] Occult NEGATIVE Negative 16, 17 finding Blood,Stool CBC 05/01/2019 [place] White Blood 14.4 K/uL High 3.4-10.5 18 Count Red Blood Count 3.27 M/uL Low 4.20-5.80 Hemoglobin 10.7 gm/dL Low 12.8-17.0 Hematocrit 32.2 % Low 38.0-48.0 Mean Cell Volume 98.5 fl High 80.0-96.0 Mean Corpuscular HGB 32.7 pg Normal 27.0-33.0 Mean Corpuscular HGB Conc 33.2 g/dL Normal 31.7-36.0 Platelet Count 239 K/uL Normal 155-360 Red Cell Distri Width SD 52.0 fl High 36-51 Red Cell Distri Width %CV 14.4 % Normal 11.6-15.8 Mean Platelet Volume 9.4 fl Normal 6.6-10.6 NRBC % 0.3 /100WBC < 10/ 100 WBC Basic Metabolic Panel 05/01/2019 [place] Glucose 119 mg/dL High 74-106 BUN 36 mg/dL High 7-18 Creatinine 1.1 mg/dL Normal 0.6-1.3 Glom Filtration Rate, Estimate >60 mL/min >60 If >60 mL/min >60 19 BUN/Creat 32.7 ratio Sodium 139 mmol/L Normal 136-145 Potassium 3.2 mmol/L Low 3.5-5.1 Chloride 101 mmol/L Normal 98-107 Carbon Dioxide 33 mmol/L High 21-32 Anion Gap 5 mEq/L Low 8-16 Calcium 8.9 mg/dL Normal 8.5-10.1 Basic Metabolic Panel 04/29/2019 [place] Glucose 130 mg/dL High 74-106 20 BUN 30 mg/dL High 7-18 Creatinine 1.0 mg/dL Normal 0.6-1.3 Glom Filtration Rate, Estimate >60 mL/min >60 If >60 mL/min >60 21 BUN/Creat 30.0 ratio Sodium 140 mmol/L Normal 136-145 Potassium 4.0 mmol/L Normal 3.5-5.1 Chloride 105 mmol/L Normal 98-107 Carbon Dioxide 27 mmol/L Normal 21-32 Anion Gap 8 mEq/L Normal 8-16 Calcium 9.1 mg/dL Normal 8.5-10.1 Basic Metabolic Panel 04/28/2019 [place] Glucose 115 mg/dL High 74-106 BUN 31 mg/dL High 7-18 Creatinine 1.0 mg/dL Normal 0.6-1.3 Glom Filtration Rate, Estimate >60 mL/min >60 If >60 mL/min >60 22 BUN/Creat 31.0 ratio Sodium 141 mmol/L Normal 136-145 Potassium 4.1 mmol/L Normal 3.5-5.1 Chloride 107 mmol/L Normal 98-107 Carbon Dioxide 26 mmol/L Normal 21-32 Anion Gap 8 mEq/L Normal 8-16 Calcium 8.4 mg/dL Low 8.5-10.1 CBS W/Automated Diff 04/27/2019 [place] White Blood Count 13.8 K/uL High 3.4-10.5 Red Blood Count 3.18 M/uL Low 4.20-5.80 Hemoglobin 10.4 gm/dL Low 12.8-17.0 Hematocrit 31.1 % Low 38.0-48.0 Mean Cell Volume 97.8 fl High 80.0-96.0 Mean Corpuscular HGB 32.7 pg Normal 27.0-33.0 Mean Corpuscular HGB Conc 33.4 g/dL Normal 31.7-36.0 Platelet Count 264 K/uL Normal 155-360 Red Cell Distri Width SD 49.9 fl Normal 36-51 Red Cell Distri Width %CV 13.8 % Normal 11.6-15.8 Mean Platelet Volume 9.6 fl Normal 6.6-10.6 Neut% 88.3 % High 33.0-73.0 Lymph % 3.3 % Low 20.0-42.0 Sibley % 5.7 % Normal 0.0-10.0 Eo% 0.6 % Normal 0.0-6.6 Bas% 0.2 % Normal 0.0-1.1 Immature Grans 1.9 % Normal 0.0-5.0 NRBC % 0.3 /100WBC < 10/ 100 WBC Neut# 12.21 K/uL High 1.8-7.0 Lymph # 0.45 K/uL Low 1.0-4.0 Sibley # 0.79 K/uL Normal 0.0-0.8 Eos # 0.08 K/uL Normal 0.0-0.5 Baso # 0.03 K/uL Normal 0.0-0.1 Immature Grans Absolute 0.26 K/uL NRBC # 0.04 K/uL Basic Metabolic Panel 04/27/2019 [place] Glucose 129 mg/dL High 74-106 BUN 27 mg/dL High 7-18 Creatinine 0.9 mg/dL Normal 0.6-1.3 Glom Filtration Rate, Estimate >60 mL/min >60 If >60 mL/min >60 23 BUN/Creat 30.0 ratio Sodium 139 mmol/L Normal 136-145 Potassium 3.6 mmol/L Normal 3.5-5.1 Chloride 106 mmol/L Normal 98-107 Carbon Dioxide 23 mmol/L Normal 21-32 Anion Gap 10 mEq/L Normal 8-16 Calcium 8.6 mg/dL Normal 8.5-10.1 Basic Metabolic Panel 04/26/2019 [place] Glucose 124 mg/dL High 74-106 BUN 26 mg/dL High 7-18 Creatinine 0.8 mg/dL Normal 0.6-1.3 Glom Filtration Rate, Estimate >60 mL/min >60 If >60 mL/min >60 24 BUN/Creat 32.5 ratio Sodium 140 mmol/L Normal 136-145 Potassium 3.9 mmol/L Normal 3.5-5.1 Chloride 108 mmol/L High 98-107 Carbon Dioxide 25 mmol/L Normal 21-32 Anion Gap 7 mEq/L Low 8-16 Calcium 8.3 mg/dL Low 8.5-10.1 Basic Metabolic Panel 04/25/2019 [place] Glucose 133 mg/dL High 74-106 BUN 18 mg/dL Normal 7-18 Creatinine 0.8 mg/dL Normal 0.6-1.3 Glom Filtration Rate, Estimate >60 mL/min >60 If >60 mL/min >60 25 BUN/Creat 22.5 ratio Sodium 138 mmol/L Normal 136-145 Potassium 3.5 mmol/L Normal 3.5-5.1 Chloride 105 mmol/L Normal 98-107 Carbon Dioxide 24 mmol/L Normal 21-32 Anion Gap 9 mEq/L Normal 8-16 Calcium 8.4 mg/dL Low 8.5-10.1 Lactic Acid 04/25/2019 [place] Lactic Acid 1.4 mmol/L Normal 0.4-1.9 Lab Reflex >2.0 for Sepsis? N CBS W/Automated Diff 04/24/2019 [place] White Blood 10.4 K/uL Normal 3.4 -10.5 Count Red Blood Count 2.92 M/uL Low 4.20-5.80 Hemoglobin 9.5 gm/dL Low 12.8-17.0 Hematocrit 28.8 % Low 38.0-48.0 Mean Cell Volume 98.6 fl High 80.0-96.0 Mean Corpuscular HGB 32.5 pg Normal 27.0-33.0 Mean Corpuscular HGB Conc 33.0 g/dL Normal 31.7-36.0 Platelet Count 186 K/uL Normal 155-360 Red Cell Distri Width SD 49.0 fl Normal 36-51 Red Cell Distri Width %CV 13.6 % Normal 11.6-15.8 Mean Platelet Volume 9.3 fl Normal 6.6-10.6 Neut% 94.4 % High 33.0-73.0 Lymph % 3.5 % Low 20.0-42.0 Sibley % 1.4 % Normal 0.0-10.0 Eo% 0.0 % Normal 0.0-6.6 Bas% 0.0 % Normal 0.0-1.1 Immature Grans 0.7 % Normal 0.0-5.0 NRBC % 0.0 /100WBC < 10/ 100 WBC Neut# 9.79 K/uL High 1.8-7.0 Lymph # 0.36 K/uL Low 1.0-4.0 Sibley # 0.14 K/uL Normal 0.0-0.8 Eos # 0.00 K/uL Normal 0.0-0.5 Baso # 0.00 K/uL Normal 0.0-0.1 Immature Grans Absolute 0.07 K/uL NRBC # 0.00 K/uL Laboratory test 04/24/2019 [place] Lactic Acid 1.8 mmol/L Normal 0.4- 1.9 finding Lactic Acid 04/24/2019 [place] Lactic Acid 2.2 mmol/L Critical high 0.4- 1.9 Lab Reflex >2.0 for Sepsis? Y Blood Culture 04/23/2019 [place] Blood Culture Aerobic NO GROWTH: FINAL < SEE 26 NOTE> Blood Culture Anaerobic NO GROWTH: FINAL <SEE NOTE> 27 Aot Request 04/23/2019 [place] Aot Request Test(s) added 28, 29 Tests to be added: crp Lactic Acid 04/23/2019 [place] Lactic Acid 3.6 mmol/L Critical high 0.4- 1.9 Lab Reflex >2.0 for Sepsis? Y Laboratory test 04/23/2019 [place] D-Dimer, Quantitative 3.18 ug/mL 30 finding Blood Culture 04/23/2019 [place] Blood Culture Aerobic NO GROWTH: 31 , 32 FINAL <SEE NOTE> Blood Culture Anaerobic NO GROWTH: FINAL <SEE NOTE> 33 Lactic Acid 04/23/2019 [place] Lactic Acid 2.2 mmol/L Critical high 0.4- 1.9 Lab Reflex >2.0 for Sepsis? Y CBC With Diff 03/10/2019 [facility] WBC 14.5 10*3/uL High (4.1-11.0) 113 [address]ANIELLE (607)- - RBC 4.61 10*6/uL (4.60-6.10) HGB 14.8 g/dL (13.5-18.0) HCT 44.5 % (41.0-53.0) MCV 96.7 fL High (80.0-95.0) MCH 32.1 pg High (27.0-32.0) MCHC 33.2 g/dL (32.0-36.0) RDW 14.2 % (10.5-14.5) PLT 301 10*3/uL (150-450) MPV 7.1 fL (7.1-10.7) Neut % 68.0 % (35.0-75.0) Lymph % 21.1 % (16.0-52.0) Sibley % 9.9 % High (0.0-8.0) Eos % 0.5 % (0.0-5.0) Baso % 0.5 % (0.0-4.0) Neut # 9.9 10*3/uL High (1.8-7.7) Lymph # 3.1 10*3/uL (1.2-4.8) Sibley # 1.4 10*3/uL High (0.0-0.8) Eos # 0.1 10*3/uL (0.0-0.5) Baso # 0.1 10*3/uL (0.0-0.2) CMP 03/10/2019 [facility] Sodium 141 mmol/L (136-145) [address]LE [...] >60 ml/min/1.73m2 (>59) GFR Interpretation <SEE NOTE> 34 Laboratory test 03/10/2019 [facility] Magnesium 1.7 mg/dL (1.7-2.4) finding 113 ALYSE SANTOS (607)- - Lipid Extended Panel 03/10/2019 [facility] Appearance CLEAR (Clear) [address] (607)- - Cholesterol @ 170 mg/dL (0-200) Triglyceride @ 137 mg/dL (30-200) HDL Cholesterol @ 71 mg/dL (>40) 35 Chol/HDL Ratio 2.4 RATIO 36 Direct LDL @ 85 mg/dL (<130) 37 VLDL (Calc) 14 mg/dL (0-30) Laboratory test 03/10/2019 [facility] 25 Hydroxy 20 ng/mL Low (31-100) 38 finding 113 ALYSE SANTOS Vit D @ (607)- - PSA Free And 03/10/2019 [facility] PSA Total 4.6 ng/mL High (0.0-4.0) Total [address] (607)- - PSA Free 0.9 ng/mL PSA % Free 20 % 39 Laboratory test 03/10/2019 [facility] Rheumatoid Factor <15 IU/mL (0- 15) finding Beau SANTOS @ (607)- - C Reactive Protein @ 0.5 mg/dL (0.0-0.5) Esr 8 mm/h (0-20) Uric Acid 6.8 mg/dL (3.5-7.2) TSH,Ultrasensitive @ 1.940 mIU/L (0.360-4.170) 1 RESULT: No apparent monoclonal protein on serum electrophoresis. Test Performed by: [facility] [address] [place] [address] Big Data Lead: Consuelo Mayes M.D. Ph.D.; CLIA# [id number] 2 Normal Range 180 to 914 Indeterminate Range 145 to 180 Deficient Range <145 3 SLIDE REVIEWED BY [employer] [id number] 10.7.19. 4 NORMAL KIDNEY FUNCTION OR MILD DISEASE - GFR >OR= 60 CHRONIC KIDNEY DISEASE - GFR 15 - 59 RENAL FAILURE - GFR <15 Est. GFR calculation based on the MDRD study equation, which assumes a steady state for creatinine. Est. GFR should not be used for medication dosing. 5 PER NCEP ATP III GUIDELINES: RESULTS LOWER THAN 40 MG/DL ARE SUGGESTIVE OF INCREASED RISK FOR CORONARY ARTERY DISEASE. RESULTS > OR = TO 60 MG/DL ARE CONSIDERED A NEGATIVE RISK FACTOR. 6 INTERPRETATION OF CHOL-HDL RATIO CHD RISK FEMALE MALE VERY HIGH >8.3 >14.3 HIGH 5.6- 8.3 6.7- 14.3 AVERAGE 3.7- 5.6 4.0- 6.7 BELOW AVERAGE 2.5- 3.7 2.7- 4.0 PROTECTED <2.5 <2.7 7 PER NCEP ATP III GUIDELINES: OPTIMAL < 100 NEAR OPTIMAL 100 - 129 BORDERLINE HIGH 130 - 159 HIGH 160 - 189 VERY HIGH > 189 8 SEE RESULT BELOW Name: BLADE SANCHEZ : [address]: Una Swann MD Acct: [id number] Unit: [id number] AGE: 79 Location: [place] [address] Re05/13/19 SEX: M Status: ADM IN SPEC: [id number] KRISTI: 05/15/19 [facility] [address]: Jesus Shi DO REQ: [id number] RECD: 05/15/19 STATUS: ESTEBAN VALLADARES DR: Gal Swann MD _ ORDERED: LEVEL 4/2 FINAL DIAGNOSIS 1. Colon, cecum, biopsy: -- Tubular adenoma. -- No high grade dysplasia or malignancy. 2. Colon, descending, biopsy: -- Tubular adenoma. -- No high grade dysplasia or malignancy. CLINICAL HISTORY Melena POST-OPERATIVE DIAGNOSIS Colonoscopy: to terminal ileum x 10; no blood; large flat polyp; periappendiceal biopsy; (2) prominent vascular lesions at 20 cm; biopsy polypectomy - descending GROSS DESCRIPTION 1. The specimen is received in formalin labeled, Biopsy Cecal Polyp, and consists of a 0.4 x 0.4 x 0.2 cm aggregate of smith irregular to polypoid soft tissue fragments which is submitted entirely in one cassette. 2. The specimen is received in formalin labeled, Biopsy Descending Polyp, and consists of a 0.3 x 0.3 x 0.2 cm smith polypoid soft tissue fragment which is submitted entirely in one cassette. CONTINUED ON NEXT PAGE DEPARTMENT OF PATHOLOGY, [address] [place] [address] Abraham Cat M.D. Director [facility] # [id number] RUN DATE: 05/16/19 [facility] LAB LIVE PAGE 2 Patient: BLADE SANCHEZ [id number] (Continued) GROSS DESCRIPTION (Continued) Signed by and Reported on: Skyla Parr MD 05/16/19 1450 END OF REPORT DEPARTMENT OF PATHOLOGY, [address] [place] [address] Abraham Cat M.D. Director [facility] # [id number] SEE RESULT BELOW Name: BLADE SANCHEZ : [address]: Una Swann MD Acct: [id number] Unit: [id number] AGE: 79 Location: [place] [address]- Re05/13/19 SEX: M Status: ADM IN SPEC: [id number] KRISTI: 05/14/19- [facility] DR: Magnolia Mon MD REQ: [id number] RECD: 05/14/19 STATUS: ESTEBAN VALLADARES DR: Dung Mann NUTRITIONAL HEALTH COACH _ ORDERED: LEVEL 4 FINAL DIAGNOSIS Stomach, body, biopsy: -- Body-type gastric mucosa with minimal superficial chronic inflammation. -- No evidence of Helicobacter organisms. CLINICAL HISTORY Melena; anemia POST-OPERATIVE DIAGNOSIS EGD: esophagus ??? normal; gastroesophageal junction ??? okay; gastric ??? pale, abnormal texture biopsy; no blood; no ulcer; duodenum - vs proximal jejunum normal; lymphangiectasia GROSS DESCRIPTION The specimen is received in formalin labeled, Biopsy Gastric Body, and consists of a 0.3 x 0.2 x 0.2 cm smith irregular soft tissue fragment which is submitted entirely in one cassette. Signed by and Reported on: Skyla Parr MD 05/16/19 1322 END OF REPORT DEPARTMENT OF PATHOLOGY, [address] [place] [address] Abraham Cat M.D. Director [facility] # [id number] 10 GI BLEED 11 Method: [employer] Hemoccult Card 12 URINE, CLEAN CATCH 13 Note: Persistent reduction for 3 months or more in an eGFR <60 mL/min/1.73 m2 defines CKD. Patients with eGFR values >/=60 mL/min/1.73 m2 may also have CKD if evidence of persistent proteinuria is present. The original MDRD equation for estimated GFR is not valid for patients less than 18 years of age. Additional information may be found at [email or web address]. 14 D64.9 Z79.01 Z79.02 15 Method: [employer] Hemoccult Card 16 D64.9 17 Method: [employer] Hemoccult Card 18 APPROVED 19 Note: Persistent reduction for 3 months or more in an eGFR <60 mL/min/1.73 m2 defines CKD. Patients with eGFR values >/=60 mL/min/1.73 m2 may also have CKD if evidence of persistent proteinuria is present. The original MDRD equation for estimated GFR is not valid for patients less than 18 years of age. Additional information may be found at [email or web address]. 20 SEPSIS, PNEUMONIA 21 Note: Persistent reduction for 3 months or more in an eGFR <60 mL/min/1.73 m2 defines CKD. Patients with eGFR values >/=60 mL/min/1.73 m2 may also have CKD if evidence of persistent proteinuria is present. The original MDRD equation for estimated GFR is not valid for patients less than 18 years of age. Additional information may be found at [email or web address]. 22 Note: Persistent reduction for 3 months or more in an eGFR <60 mL/min/1.73 m2 defines CKD. Patients with eGFR values >/=60 mL/min/1.73 m2 may also have CKD if evidence of persistent proteinuria is present. The original MDRD equation for estimated GFR is not valid for patients less than 18 years of age. Additional information may be found at [email or web address]. 23 Note: Persistent reduction for 3 months or more in an eGFR <60 mL/min/1.73 m2 defines CKD. Patients with eGFR values >/=60 mL/min/1.73 m2 may also have CKD if evidence of persistent proteinuria is present. The original MDRD equation for estimated GFR is not valid for patients less than 18 years of age. Additional information may be found at [email or web address]. 24 Note: Persistent reduction for 3 months or more in an eGFR <60 mL/min/1.73 m2 defines CKD. Patients with eGFR values >/=60 mL/min/1.73 m2 may also have CKD if evidence of persistent proteinuria is present. The original MDRD equation for estimated GFR is not valid for patients less than 18 years of age. Additional information may be found at [email or web address]. 25 Note: Persistent reduction for 3 months or more in an eGFR <60 mL/min/1.73 m2 defines CKD. Patients with eGFR values >/=60 mL/min/1.73 m2 may also have CKD if evidence of persistent proteinuria is present. The original MDRD equation for estimated GFR is not valid for patients less than 18 years of age. Additional information may be found at [email or web address]. 26 NO GROWTH: FINAL REPORT 27 NO GROWTH: FINAL REPORT 28 REF BY CONSUELO WHITE,CP/DIFFICULTY BREATHING. 29 Tests: crp Instructions: 30 <=0.49 ug/mL - Low likelihood of DIC, DVT or Pulmonary Embolism >0.49 ug/mL - Additional testing should be done to rule out DIC, DVT, or Pulmonary embolism as clinically indicated. ([facility] has established a 97.89% negative predictive value for thrombotic disease when a cutoff value of 0.5 ug/mL is used.) 31 SEPSIS, PNEUMONIA 32 NO GROWTH: FINAL REPORT 33 NO GROWTH: FINAL REPORT 34 NORMAL KIDNEY FUNCTION OR MILD DISEASE - GFR >OR= 60 CHRONIC KIDNEY DISEASE - GFR 15 - 59 RENAL FAILURE - GFR <15 Est. GFR calculation based on the MDRD study equation, which assumes a steady state for creatinine. Est. GFR should not be used for medication dosing. 35 PER NCEP ATP III GUIDELINES: RESULTS LOWER THAN 40 MG/DL ARE SUGGESTIVE OF INCREASED RISK FOR CORONARY ARTERY DISEASE. RESULTS > OR = TO 60 MG/DL ARE CONSIDERED A NEGATIVE RISK FACTOR. 36 INTERPRETATION OF CHOL-HDL RATIO CHD RISK FEMALE MALE VERY HIGH >8.3 >14.3 HIGH 5.6- 8.3 6.7- 14.3 AVERAGE 3.7- 5.6 4.0- 6.7 BELOW AVERAGE 2.5- 3.7 2.7- 4.0 PROTECTED <2.5 <2.7 37 PER NCEP ATP III GUIDELINES: OPTIMAL < 100 NEAR OPTIMAL 100 - 129 BORDERLINE HIGH 130 - 159 HIGH 160 - 189 VERY HIGH > 189 38 A REVIEW OF THE LITERATURE SUGGESTS THE FOLLOWING RANGES FOR THE CLASSIFICATION OF 25-OH VITAMIN D STATUS: VITAMIN D STATUS 25-OH VITAMIN D DEFICIENCY <20 NG/ML INSUFFICIENCY 20-30 NG/ML SUFFICIENCY 31 - 100 NG/ML TOXICITY > 100 NG/ML A PEDIATRIC REFERENCE RANGE HAS NOT BEEN ESTABLISHED USING THIS METHOD. 39 % FREE PSA PROBABILITY OF CANCER 0 [...] DIAGNOSIS OF CANCER. (See: BRENDA 1998; 279: 1846-1999) METHOD USED TO ASSAY BOTH FREE PSA AND TOTAL PSA IS SIEMENS [employer] LOCI CHEMILUMINESCENT IMMUNOASSAY (CALIBRATION TRACEABLE TO WHO , 1998, 96/8). RESULTS SHOULD NOT BE INTERPRETED ABSOLUTE EVIDENCE FOR THE PRESENCE OR ABSENCE OF MALIGNANT DISEASE. VALUES OBTAINED WITH DIFFERENT ASSAY METHODS OR KITS CANNOT BE USED INTERCHANGEABLY. Procedures Date Code Description Status 06/25/2019 56834 Injection DX/Therapeutic/Prophy Completed 06/23/2019 68245 Injection DX/Therapeutic/Prophy Completed 06/20/2019 51439 Injection DX/Therapeutic/Prophy Completed 06/20/2019 80802 Nebulizer-Ippb Treatment Completed 03/10/2019 39709 EKG Completed 02/07/2019 58590 Spirometry Completed 02/07/2019 99677 Tympanometry Completed 10/10/2016 53379009 Colonoscopy Completed Medical Devices Description No Information Available Encounters Type Date Location Provider Dx Diagnosis Office Visit 08/01/2019 [facility] Consuelo Mann, I10 Essential ( primary) 11:45a N.P. 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 08/01/2019 E78.2 Mixed hyperlipidemia Cnosuelo Mann N.PLuis 08/01/2019 J44.9 Chronic obstructive pulmonary disease, Consuelo Mann, N.P. 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 08/01/2019 N40.0 Benign prostatic hyperplasia without lower Consuelo Mann N.PLuis urinary tract symptoms 08/01/2019 K21.0 Gastro-esophageal reflux disease with Consuelo Mann N.PLuis esophagitis 08/01/2019 J30.2 Other seasonal allergic rhinitis Consuelo Mann, N.P. 08/01/2019 M15.9 Polyosteoarthritis, unspecified Consuelo Mann, N.P. 08/01/2019 M54.5 Low back pain Consuelo Mann N.P. 08/01/2019 R06.02 Shortness of breath Consuelo Mann N.P. 08/01/2019 R60.0 Localized edema Consuelo Mann N.P. 08/01/2019 E83.42 Hypomagnesemia Consuelo Mann N.P. 08/01/2019 R97.20 Elevated prostate specific antigen [PSA] Consuelo Mann N.P. 08/01/2019 M54.6 Pain in thoracic spine Consuelo Mann N.P. 08/01/2019 I87.2 Venous insufficiency (chronic) (peripheral) Consuelo Mann N.P. 08/01/2019 H10.403 Unspecified chronic conjunctivitis, bilateral Consuelo Mann N.P. 08/01/2019 H91.8x3 Other specified hearing loss, bilateral Consuelo Mann N.P. 08/01/2019 L20.9 Atopic dermatitis, unspecified Consuelo Mann, N.P. 08/01/2019 F17.210 Nicotine dependence, cigarettes, Consuelo Mann N.P. uncomplicated 08/01/2019 J30.9 Allergic rhinitis, unspecified Consuelo Mann, N.P. 08/01/2019 J18.9 Pneumonia, unspecified organism Consuelo Mann N.P. 08/01/2019 H92.03 Otalgia, bilateral Consuelo Mann N.P. 08/01/2019 H10.022 Other mucopurulent conjunctivitis, left eye Consuelo Mann N.P. 08/01/2019 H10.45 Other chronic allergic conjunctivitis Consuelo Mann N.P. 08/01/2019 B37.0 Candidal stomatitis Consuelo Mann, N.P. 08/01/2019 S22.000A Wedge compression fracture of unspecified Consuelo Mann N.P. thoracic vertebra, initial encounter for closed fracture 08/01/2019 L89.312 Pressure ulcer of right buttock, stage 2 Consuelo Mann, N.P. 08/01/2019 M54.17 Radiculopathy, lumbosacral region Consuelo Mann N.P. 08/01/2019 M54.31 Sciatica, right side Consuelo Mann, N.P. 08/01/2019 M54.41 Lumbago with sciatica, right side Consuelo Mann, N.P. 08/01/2019 R53.83 Other fatigue Consuelo Mann N.P. 08/01/2019 I71.4 Abdominal aortic aneurysm, without rupture Consuelo Mann N.P. 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 08/01/2019 I73.9 Peripheral vascular disease, unspecified Consuelo Mann N.P. 08/01/2019 R07.9 Chest pain, unspecified Consuelo Mann, N.P. 08/01/2019 F17.293 Nicotine dependence, other tobacco product, Consuelo Mann , N.P. with withdrawal 08/01/2019 Z23 Encounter for immunization Consuelo Mann N.P. 08/01/2019 J01.40 Acute pansinusitis, unspecified Consuelo Mann, N.P. 08/01/2019 Z68.23 Body mass index (BMI) 23.0-23.9, adult Consuelo Mann N.P. 07/11/2019 I10 Essential (primary) hypertension Consuelo Mann N.P. 07/11/2019 E78.2 Mixed hyperlipidemia Consuelo Mann, N.P. 07/11/2019 J44.9 Chronic obstructive pulmonary disease, Consuelo Mann N.P. 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 07/11/2019 N40.0 Benign prostatic hyperplasia without lower Consuelo Mann N.P. urinary tract symptoms 07/11/2019 K21.0 Gastro-esophageal reflux disease with Consuelo Mann N.P. esophagitis 07/11/2019 J30.2 Other seasonal allergic rhinitis Consuelo Mann N.P. 07/11/2019 M15.9 Polyosteoarthritis, unspecified Consuelo Mann N.PLuis 07/11/2019 M54.5 Low back pain Consuelo Mann N.P. 07/11/2019 R06.02 Shortness of breath Consuelo Mann N.PLuis 07/11/2019 R60.0 Localized edema Consuelo Mann N.PLuis 07/11/2019 E83.42 Hypomagnesemia Consuelo Mann N.P. 07/11/2019 R97.20 Elevated prostate specific antigen [PSA] Consuelo Mann N.P. 07/11/2019 M54.6 Pain in thoracic spine Consuelo Mann N.PLuis 07/11/2019 I87.2 Venous insufficiency (chronic) (peripheral) Consuelo Mann N.P. 07/11/2019 H10.403 Unspecified chronic conjunctivitis, bilateral Consuelo Mann N.P. 07/11/2019 H91.8x3 Other specified hearing loss, bilateral Consuelo Mann N.P. 07/11/2019 L20.9 Atopic dermatitis, unspecified Consuelo Mann N.P. 07/11/2019 F17.210 Nicotine dependence, cigarettes, Consuelo Mann N.PLuis uncomplicated 07/11/2019 J30.9 Allergic rhinitis, unspecified Consuelo Mann N.P. 07/11/2019 J18.9 Pneumonia, unspecified organism Consuelo Mann N.P. 07/11/2019 H92.03 Otalgia, bilateral Consuelo Mann N.PLuis 07/11/2019 H10.022 Other mucopurulent conjunctivitis, left eye Consuelo Mann N.PLuis 07/11/2019 H10.45 Other chronic allergic conjunctivitis Consuelo Mann N.P. 07/11/2019 B37.0 Candidal stomatitis Consuelo Mann N.PLuis 07/11/2019 S22.000A Wedge compression fracture of unspecified Romeo Richards.Deborah thoracic vertebra, initial encounter for closed fracture 07/11/2019 L89.312 Pressure ulcer of right buttock, stage 2 Consuelo Mann N.P. 07/11/2019 M54.17 Radiculopathy, lumbosacral region Consuelo Mann N.PLuis 07/11/2019 M54.31 Sciatica, right side Consuelo Mann N.P. 07/11/2019 M54.41 Lumbago with sciatica, right side Consuelo Mann N.P. 07/11/2019 R53.83 Other fatigue Consuelo Mann N.P. 07/11/2019 I71.4 Abdominal aortic aneurysm, without rupture Consuelo Mann N.P. 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 07/11/2019 I73.9 Peripheral vascular disease, unspecified Consuelo Mann N.P. 07/11/2019 R07.9 Chest pain, unspecified Consuelo Mann N.P. 07/11/2019 F17.293 Nicotine dependence, other tobacco product, Consuelo Mann N.PLuis with withdrawal 07/11/2019 Z23 Encounter for immunization Consuelo Mann N.P. 07/11/2019 Z68.23 Body mass index (BMI) 23.0-23.9, adult Consuelo Mann N.P. 06/25/2019 I10 Essential (primary) hypertension Consuelo Mann N.P. 06/25/2019 E78.2 Mixed hyperlipidemia Consuelo Mann N.P. 06/25/2019 J44.9 Chronic obstructive pulmonary disease, Consuelo Mann N.P. 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 06/25/2019 N40.0 Benign prostatic hyperplasia without lower Consuelo Mann N.PLuis urinary tract symptoms 06/25/2019 K21.0 Gastro-esophageal reflux disease with Consuelo Mann N.PLuis esophagitis 06/25/2019 J30.2 Other seasonal allergic rhinitis Consuelo Mann N.P. 06/25/2019 M15.9 Polyosteoarthritis, unspecified Consuelo Mann N.P. 06/25/2019 M54.5 Low back pain Consuelo Mann N.P. 06/25/2019 R06.02 Shortness of breath Consuelo Mann N.P. 06/25/2019 R60.0 Localized edema Consuelo Mann N.P. 06/25/2019 E83.42 Hypomagnesemia Consuelo Mann N.P. 06/25/2019 R97.20 Elevated prostate specific antigen [PSA] Consuelo Mann N.P. 06/25/2019 M54.6 Pain in thoracic spine Consuelo Mann N.P. 06/25/2019 I87.2 Venous insufficiency (chronic) (peripheral) Consuelo Mann N.P. 06/25/2019 H10.403 Unspecified chronic conjunctivitis, bilateral Consuelo Mann N.P. 06/25/2019 H91.8x3 Other specified hearing loss, bilateral Consuelo Mann N.P. 06/25/2019 L20.9 Atopic dermatitis, unspecified Consuelo Mann N.P. 06/25/2019 F17.210 Nicotine dependence, cigarettes, Consuelo Mann N.P. uncomplicated 06/25/2019 J30.9 Allergic rhinitis, unspecified Consuelo Mann N.P. 06/25/2019 J18.9 Pneumonia, unspecified organism Consuelo Mann N.P. 06/25/2019 H92.03 Otalgia, bilateral Consuelo Mann N.P. 06/25/2019 H10.022 Other mucopurulent conjunctivitis, left eye Consuelo Mnan N.P. 06/25/2019 H10.45 Other chronic allergic conjunctivitis Consuelo Mann N.P. 06/25/2019 B37.0 Candidal stomatitis Consuelo Mann N.P. 06/25/2019 S22.000A Wedge compression fracture of unspecified Consuelo Mann N.Deborah thoracic vertebra, initial encounter for closed fracture 06/25/2019 L89.312 Pressure ulcer of right buttock, stage 2 Consuelo Mann N.P. 06/25/2019 M54.17 Radiculopathy, lumbosacral region Consuelo Mann N.PLuis 06/25/2019 M54.31 Sciatica, right side Consuelo Mann N.P. 06/25/2019 M54.41 Lumbago with sciatica, right side Consuelo Mann N.P. 06/25/2019 R53.83 Other fatigue Consuelo Mann N.PLuis 06/25/2019 I71.4 Abdominal aortic aneurysm, without rupture Consuelo Mann N.P. 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 06/25/2019 I73.9 Peripheral vascular disease, unspecified Consuelo Mann N.PLuis 06/25/2019 R07.9 Chest pain, unspecified Consuelo Mann N.PLuis 06/25/2019 F17.293 Nicotine dependence, other tobacco product, Consuelo Mann , N.P. with withdrawal 06/25/2019 Z68.23 Body mass index (BMI) 23.0-23.9, adult Consuelo Mann N.P. 06/23/2019 I10 Essential (primary) hypertension Consuelo Mann N.P. 06/23/2019 E78.2 Mixed hyperlipidemia Consuelo Mann N.P. 06/23/2019 J44.9 Chronic obstructive pulmonary disease, Consuelo Mann, N.P. 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 06/23/2019 N40.0 Benign prostatic hyperplasia without lower Consuelo Mann N.PLuis urinary tract symptoms 06/23/2019 K21.0 Gastro-esophageal reflux disease with Consuelo Mann N.PLuis esophagitis 06/23/2019 J30.2 Other seasonal allergic rhinitis Consuelo Mann N.P. 06/23/2019 M15.9 Polyosteoarthritis, unspecified Consuelo Mann N.P. 06/23/2019 M54.5 Low back pain Consuelo Mann N.P. 06/23/2019 R06.02 Shortness of breath Consuelo Mann N.P. 06/23/2019 R60.0 Localized edema Consuelo Mann N.P. 06/23/2019 E83.42 Hypomagnesemia Consuelo Mann N.P. 06/23/2019 R97.20 Elevated prostate specific antigen [PSA] Consuelo Mann N.P. 06/23/2019 M54.6 Pain in thoracic spine Consuelo Mann N.P. 06/23/2019 I87.2 Venous insufficiency (chronic) (peripheral) Consuelo Mann N.P. 06/23/2019 H10.403 Unspecified chronic conjunctivitis, bilateral Consuelo Mann N.P. 06/23/2019 H91.8x3 Other specified hearing loss, bilateral Consuelo Mann N.P. 06/23/2019 L20.9 Atopic dermatitis, unspecified Consuelo Mnan N.P. 06/23/2019 F17.210 Nicotine dependence, cigarettes, Consuelo Mann N.P. uncomplicated 06/23/2019 J30.9 Allergic rhinitis, unspecified Consuelo Mann, N.P. 06/23/2019 J18.9 Pneumonia, unspecified organism Consuelo Mann N.P. 06/23/2019 H92.03 Otalgia, bilateral Consuelo Mann, N.P. 06/23/2019 H10.022 Other mucopurulent conjunctivitis, left eye Consuelo Mann N.P. 06/23/2019 H10.45 Other chronic allergic conjunctivitis Consuelo Mann N.P. 06/23/2019 B37.0 Candidal stomatitis Consuelo Mann, N.P. 06/23/2019 S22.000A Wedge compression fracture of unspecified Consuelo Mann N.PLuis thoracic vertebra, initial encounter for closed fracture 06/23/2019 L89.312 Pressure ulcer of right buttock, stage 2 Consuelo Mann, N.P. 06/23/2019 M54.17 Radiculopathy, lumbosacral region Consuelo Mann N.P. 06/23/2019 M54.31 Sciatica, right side Consuelo Mann N.P. 06/23/2019 M54.41 Lumbago with sciatica, right side Consuelo Mann, N.P. 06/23/2019 R53.83 Other fatigue Consuelo Mann, N.P. 06/23/2019 I71.4 Abdominal aortic aneurysm, without rupture Consuelo Mann N.P. 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 06/23/2019 I73.9 Peripheral vascular disease, unspecified Consuelo Mann N.P. 06/23/2019 R07.9 Chest pain, unspecified Consuelo Mann N.P. 06/23/2019 F17.293 Nicotine dependence, other tobacco product, Consuelo Mann , N.P. with withdrawal 06/23/2019 Z68.23 Body mass index (BMI) 23.0-23.9, adult Consuelo Mann N.P. 06/20/2019 I10 Essential (primary) hypertension Consuelo Mann N.P. 06/20/2019 E78.2 Mixed hyperlipidemia Consuelo Mann N.P. 06/20/2019 J44.9 Chronic obstructive pulmonary disease, Consuelo Mann N.P. 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 06/20/2019 N40.0 Benign prostatic hyperplasia without lower Consuelo Mann N.PLuis urinary tract symptoms 06/20/2019 K21.0 Gastro-esophageal reflux disease with Consuelo Mann N.PLuis esophagitis 06/20/2019 J30.2 Other seasonal allergic rhinitis Consuelo Mann N.P. 06/20/2019 M15.9 Polyosteoarthritis, unspecified Consuelo Mann N.P. 06/20/2019 M54.5 Low back pain Consuelo Mann N.P. 06/20/2019 R06.02 Shortness of breath oCnsuelo Mann N.P. 06/20/2019 R60.0 Localized edema Consuelo Mann N.P. 06/20/2019 E83.42 Hypomagnesemia Consuelo Mann N.P. 06/20/2019 R97.20 Elevated prostate specific antigen [PSA] Consuelo Mann N.P. 06/20/2019 M54.6 Pain in thoracic spine Consuelo Mann N.P. 06/20/2019 I87.2 Venous insufficiency (chronic) (peripheral) Consuelo Mann N.P. 06/20/2019 H10.403 Unspecified chronic conjunctivitis, bilateral Consuelo Mann N.P. 06/20/2019 H91.8x3 Other specified hearing loss, bilateral Consuelo Mann N.P. 06/20/2019 L20.9 Atopic dermatitis, unspecified Consuelo Mann N.P. 06/20/2019 F17.210 Nicotine dependence, cigarettes, Consuelo Mann N.PLuis uncomplicated 06/20/2019 J30.9 Allergic rhinitis, unspecified Consuelo Mann N.P. 06/20/2019 J18.9 Pneumonia, unspecified organism Consuelo Mann N.P. 06/20/2019 H92.03 Otalgia, bilateral Consuelo Mann N.P. 06/20/2019 H10.022 Other mucopurulent conjunctivitis, left eye Consuelo Mann N.P. 06/20/2019 H10.45 Other chronic allergic conjunctivitis Consuelo Mann N.P. 06/20/2019 B37.0 Candidal stomatitis Consuelo Mann N.P. 06/20/2019 S22.000A Wedge compression fracture of unspecified Consuelo Mann N.P. thoracic vertebra, initial encounter for closed fracture 06/20/2019 L89.312 Pressure ulcer of right buttock, stage 2 Consuelo Mann N.P. 06/20/2019 M54.17 Radiculopathy, lumbosacral region Consuelo Mann N.P. 06/20/2019 M54.31 Sciatica, right side Consuelo Mann N.P. 06/20/2019 M54.41 Lumbago with sciatica, right side Consuelo Mann N.P. 06/20/2019 R53.83 Other fatigue Consuelo Mann N.P. 06/20/2019 I71.4 Abdominal aortic aneurysm, without rupture Consuelo Mann N.P. 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 06/20/2019 I73.9 Peripheral vascular disease, unspecified Consuelo Mann N.P. 06/20/2019 R07.9 Chest pain, unspecified Consuelo Mann N.P. 06/20/2019 F17.293 Nicotine dependence, other tobacco product, Consuelo Mann N.P. with withdrawal 06/20/2019 Z68.23 Body mass index (BMI) 23.0-23.9, adult Consuelo Mann N.P. 05/26/2019 I10 Essential (primary) hypertension Consuelo Mann N.P. 05/26/2019 E78.2 Mixed hyperlipidemia Consuelo Mann N.P. 05/26/2019 J44.9 Chronic obstructive pulmonary disease, Consuelo Mann N.P. 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 05/26/2019 N40.0 Benign prostatic hyperplasia without lower Consuelo Mann N.PLuis urinary tract sym 05/26/2019 K21.0 Gastro-esophageal reflux disease with Consuelo Mann N.PLuis esophagitis 05/26/2019 J30.2 Other seasonal allergic rhinitis Consuelo Mann N.P. 05/26/2019 M15.9 Polyosteoarthritis, unspecified Consuelo Mann N.P. 05/26/2019 M54.5 Low back pain Consuelo Mann N.P. 05/26/2019 R06.02 Shortness of breath Consuelo Mann N.P. 05/26/2019 R60.0 Localized edema Consuelo Mann, N.P. 05/26/2019 E83.42 Hypomagnesemia Consuelo Mann N.P. 05/26/2019 R97.20 Elevated prostate specific antigen [PSA] Consuelo Mann N.P. 05/26/2019 M54.6 Pain in thoracic spine Consuelo Mann N.P. 05/26/2019 I87.2 Venous insufficiency (chronic) (peripheral) Consuelo Mann N.P. 05/26/2019 H10.403 Unspecified chronic conjunctivitis, bilateral Consuelo Mann, N.P. 05/26/2019 H91.8x3 Other specified hearing loss, bilateral Consuelo Mann, N.P. 05/26/2019 L20.9 Atopic dermatitis, unspecified Consuelo Mann, N.P. 05/26/2019 F17.210 Nicotine dependence, cigarettes, Consuelo Mann N.P. uncomplicated 05/26/2019 J30.9 Allergic rhinitis, unspecified Consuelo Mann N.P. 05/26/2019 J18.9 Pneumonia, unspecified organism Consuelo Mann N.P. 05/26/2019 H92.03 Otalgia, bilateral Consuelo Mann N.P. 05/26/2019 H10.022 Other mucopurulent conjunctivitis, left eye Consuelo Mann N.P. 05/26/2019 H10.45 Other chronic allergic conjunctivitis Consuelo Mann N.P. 05/26/2019 B37.0 Candidal stomatitis Consuelo Mann N.P. 05/26/2019 S22.000A Wedge compression fracture of unspecified Consuelo Mann N.PLuis thoracic vertebra, 05/26/2019 L89.312 Pressure ulcer of right buttock, stage 2 Consuelo Mann N.P. 05/26/2019 M54.17 Radiculopathy, lumbosacral region Consuelo Mann N.P. 05/26/2019 M54.31 Sciatica, right side Consuelo Mann N.P. 05/26/2019 M54.41 Lumbago with sciatica, right side Consuelo Mann N.P. 05/26/2019 R53.83 Other fatigue Consuelo Mann N.P. 05/26/2019 I71.4 Abdominal aortic aneurysm, without rupture Consuelo Mann N.P. 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 05/26/2019 I73.9 Peripheral vascular disease, unspecified Consuelo Mann, N.P. 05/26/2019 R07.9 Chest pain, unspecified Consuelo Mann, N.P. 05/26/2019 F17.293 Nicotine dependence, other tobacco product, Consuelo Mann , N.P. with withdrawal 05/26/2019 Z68.23 Body mass index (BMI) 23.0-23.9, adult Consuelo Mann N.P. 05/21/2019 I10 Essential (primary) hypertension Consuelo Mann N.P. 05/21/2019 E78.2 Mixed hyperlipidemia Consuelo Mann N.P. 05/21/2019 J44.9 Chronic obstructive pulmonary disease, Consuelo Mann N.P. 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 05/21/2019 N40.0 Benign prostatic hyperplasia without lower Consuelo Mann N.P. urinary tract sym 05/21/2019 K21.0 Gastro-esophageal reflux disease with Consuelo Mann N.P. esophagitis 05/21/2019 J30.2 Other seasonal allergic rhinitis Consuelo Mann N.P. 05/21/2019 M15.9 Polyosteoarthritis, unspecified Consuelo Mann N.P. 05/21/2019 M54.5 Low back pain Consuelo Mann N.P. 05/21/2019 R06.02 Shortness of breath Consuelo Mann N.P. 05/21/2019 R60.0 Localized edema Consuelo Mann N.P. 05/21/2019 E83.42 Hypomagnesemia Consuelo Mann N.P. 05/21/2019 R97.20 Elevated prostate specific antigen [PSA] Consuelo Mann N.P. 05/21/2019 M54.6 Pain in thoracic spine Consuelo Mann N.P. 05/21/2019 I87.2 Venous insufficiency (chronic) (peripheral) Consuelo Mann N.P. 05/21/2019 H10.403 Unspecified chronic conjunctivitis, bilateral Consuelo Mann N.P. 05/21/2019 H91.8x3 Other specified hearing loss, bilateral Consuelo Mann N.P. 05/21/2019 L20.9 Atopic dermatitis, unspecified Consuelo Mann, N.P. 05/21/2019 F17.210 Nicotine dependence, cigarettes, Consuelo Mann N.P. uncomplicated 05/21/2019 J30.9 Allergic rhinitis, unspecified Consuelo Mann, N.P. 05/21/2019 J18.9 Pneumonia, unspecified organism Consuelo Mann, N.P. 05/21/2019 H92.03 Otalgia, bilateral Consuelo Mann N.P. 05/21/2019 H10.022 Other mucopurulent conjunctivitis, left eye Consuelo Mann , N.P. 05/21/2019 H10.45 Other chronic allergic conjunctivitis Consuelo Mann, N.P. 05/21/2019 B37.0 Candidal stomatitis Consuelo Mann, N.P. 05/21/2019 S22.000A Wedge compression fracture of unspecified Consuelo Mann , N.P. thoracic vertebra, 05/21/2019 L89.312 Pressure ulcer of right buttock, stage 2 Consuelo Mann N.P. 05/21/2019 M54.17 Radiculopathy, lumbosacral region Consuelo Mann, N.P. 05/21/2019 M54.31 Sciatica, right side Consuelo Mann, N.P. 05/21/2019 M54.41 Lumbago with sciatica, right side Consuelo Mann, N.P. 05/21/2019 R53.83 Other fatigue Consuelo Mann, N.P. 05/21/2019 I71.4 Abdominal aortic aneurysm, without rupture Consuelo Mann N.P. 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 05/21/2019 I73.9 Peripheral vascular disease, unspecified Consuelo Mann, N.P. 05/21/2019 R07.9 Chest pain, unspecified Consuelo Mann, N.P. 05/21/2019 F17.293 Nicotine dependence, other tobacco product, Consuelo Mann N.P. with withdrawal 05/21/2019 Z68.23 Body mass index (BMI) 23.0-23.9, adult Consuelo Mann, N.P. 04/23/2019 I10 Essential (primary) hypertension Consuelo Mann N.P. 04/23/2019 E78.2 Mixed hyperlipidemia Consuelo Mann N.P. 04/23/2019 J44.9 Chronic obstructive pulmonary disease, Consuelo Mann N.P. 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 04/23/2019 N40.0 Benign prostatic hyperplasia without lower Consuelo Mann N.Deborah urinary tract sym 04/23/2019 K21.0 Gastro-esophageal reflux disease with Consuelo Mann N.P. esophagitis 04/23/2019 J30.2 Other seasonal allergic rhinitis Consuelo Mann N.P. 04/23/2019 M15.9 Polyosteoarthritis, unspecified Consuelo Mann N.P. 04/23/2019 M54.5 Low back pain Consuelo Mann N.PLuis 04/23/2019 R06.02 Shortness of breath Consuelo Mann N.PLuis 04/23/2019 R60.0 Localized edema Consuelo Mann N.PLuis 04/23/2019 E83.42 Hypomagnesemia Consuelo Mann N.PLuis 04/23/2019 R97.20 Elevated prostate specific antigen [PSA] Consuelo Mann N.PLuis 04/23/2019 M54.6 Pain in thoracic spine Consuelo Mann N.P. 04/23/2019 I87.2 Venous insufficiency (chronic) (peripheral) Consuelo Mann N.PLuis 04/23/2019 H10.403 Unspecified chronic conjunctivitis, bilateral Consuelo Mann N.P. 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 04/23/2019 L20.9 Atopic dermatitis, unspecified Consuelo Mann N.P. 04/23/2019 F17.210 Nicotine dependence, cigarettes, Consuelo Mann N.P. uncomplicated 04/23/2019 J30.9 Allergic rhinitis, unspecified Consuelo Mann N.P. 04/23/2019 J18.9 Pneumonia, unspecified organism Consuelo Mann N.P. 04/23/2019 H92.03 Otalgia, bilateral Consuelo Mann N.P. 04/23/2019 H10.022 Other mucopurulent conjunctivitis, left eye Consuelo Mann N.PLuis 04/23/2019 H10.45 Other chronic allergic conjunctivitis Consuelo Mann N.P. 04/23/2019 B37.0 Candidal stomatitis Consuelo Mann N.P. 04/23/2019 S22.000A Wedge compression fracture of unspecified Consuelo Mann N.P. thoracic vertebra, 04/23/2019 L89.312 Pressure ulcer of right buttock, stage 2 Consuelo Mann, N.P. 04/23/2019 M54.17 Radiculopathy, lumbosacral region Consuelo Mann, N.P. 04/23/2019 M54.31 Sciatica, right side Consuelo Mann, N.P. 04/23/2019 M54.41 Lumbago with sciatica, right side Consuelo Mann, N.P. 04/23/2019 R53.83 Other fatigue Consuelo Mann, N.P. 04/23/2019 I71.4 Abdominal aortic aneurysm, without rupture Consuelo Mann N.P. 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 04/23/2019 I73.9 Peripheral vascular disease, unspecified Consuelo Mann N.P. 04/23/2019 R07.9 Chest pain, unspecified Consuelo Mann N.P. 04/23/2019 Z68.23 Body mass index (BMI) 23.0-23.9, adult Consuelo Mann N.P. 03/31/2019 I10 Essential (primary) hypertension Consuelo Mann N.P. 03/31/2019 E78.2 Mixed hyperlipidemia Consuelo Mann N.P. 03/31/2019 J44.9 Chronic obstructive pulmonary disease, Consuelo Mann N.P. 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 03/31/2019 N40.0 Benign prostatic hyperplasia without lower Consuelo Mann N.P. urinary tract sym 03/31/2019 K21.0 Gastro-esophageal reflux disease with Consuelo Mann N.PLuis esophagitis 03/31/2019 J30.2 Other seasonal allergic rhinitis Consuelo Mann N.P. 03/31/2019 M15.9 Polyosteoarthritis, unspecified Consuelo Mann N.P. 03/31/2019 M54.5 Low back pain Consuelo Mann N.P. 03/31/2019 R06.02 Shortness of breath Consuelo Mann N.P. 03/31/2019 R60.0 Localized edema Consuelo Mann, N.P. 03/31/2019 E83.42 Hypomagnesemia Consuelo Mann, N.P. 03/31/2019 R97.20 Elevated prostate specific antigen [PSA] Consuelo Mann, N.P. 03/31/2019 M54.6 Pain in thoracic spine Consuelo Mann N.P. 03/31/2019 I87.2 Venous insufficiency (chronic) (peripheral) Consuelo Mann, N.P. 03/31/2019 H10.403 Unspecified chronic conjunctivitis, bilateral Consuelo Mann, N.P. 03/31/2019 H91.8x3 Other specified hearing loss, bilateral Consuelo Mann, N.P. 03/31/2019 L20.9 Atopic dermatitis, unspecified Consuelo Mann, N.P. 03/31/2019 F17.210 Nicotine dependence, cigarettes, Consuelo Mann N.P. uncomplicated 03/31/2019 J30.9 Allergic rhinitis, unspecified Consuelo Mann N.P. 03/31/2019 J18.9 Pneumonia, unspecified organism Consuelo Mann, N.P. 03/31/2019 H92.03 Otalgia, bilateral Conseulo Mann, N.P. 03/31/2019 H10.022 Other mucopurulent conjunctivitis, left eye Consuelo Mann , N.P. 03/31/2019 H10.45 Other chronic allergic conjunctivitis Consuelo Mann, N.P. 03/31/2019 B37.0 Candidal stomatitis Consuelo Mann N.P. 03/31/2019 S22.000A Wedge compression fracture of unspecified Consueol Mann , N.P. thoracic vertebra, 03/31/2019 L89.312 Pressure ulcer of right buttock, stage 2 Consuelo Mann, N.P. 03/31/2019 M54.17 Radiculopathy, lumbosacral region Consuelo Mann, N.P. 03/31/2019 M54.31 Sciatica, right side Consuelo Mann, N.P. 03/31/2019 M54.41 Lumbago with sciatica, right side Consuelo Mann, N.P. 03/31/2019 R53.83 Other fatigue Consuelo Mann N.P. 03/31/2019 I71.4 Abdominal aortic aneurysm, without rupture Consuelo Mann N.P. 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 03/31/2019 Z68.23 Body mass index (BMI) 23.0-23.9, adult Consuelo Mann N.P. 03/17/2019 I10 Essential (primary) hypertension Consuelo Mann N.P. 03/17/2019 E78.2 Mixed hyperlipidemia Consuelo Mann N.P. 03/17/2019 J44.9 Chronic obstructive pulmonary disease, Consuelo Mann N.P. 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 03/17/2019 N40.0 Benign prostatic hyperplasia without lower Consuelo Mann N.PLuis urinary tract sym 03/17/2019 K21.0 Gastro-esophageal reflux disease with Consuelo Mann N.PLuis esophagitis 03/17/2019 J30.2 Other seasonal allergic rhinitis Consuelo Mann N.P. 03/17/2019 M15.9 Polyosteoarthritis, unspecified Consuelo Mann N.P. 03/17/2019 M54.5 Low back pain Consuelo Mann N.P. 03/17/2019 R06.02 Shortness of breath Consuelo Mann N.P. 03/17/2019 R60.0 Localized edema Consuelo Mann N.P. 03/17/2019 E83.42 Hypomagnesemia Consuelo Mann N.P. 03/17/2019 R97.20 Elevated prostate specific antigen [PSA] Consuelo Mann N.P. 03/17/2019 M54.6 Pain in thoracic spine Consuelo Mann N.P. 03/17/2019 I87.2 Venous insufficiency (chronic) (peripheral) Consuelo Mann N.P. 03/17/2019 H10.403 Unspecified chronic conjunctivitis, bilateral Consuelo Mann N.P. 03/17/2019 H91.8x3 Other specified hearing loss, bilateral Consuelo Mann N.P. 03/17/2019 L20.9 Atopic dermatitis, unspecified Consuelo Mann N.P. 03/17/2019 F17.210 Nicotine dependence, cigarettes, Consuelo Mann N.P. uncomplicated 03/17/2019 J30.9 Allergic rhinitis, unspecified Consuelo Mann N.P. 03/17/2019 J18.9 Pneumonia, unspecified organism Consuelo Mann, N.P. 03/17/2019 H92.03 Otalgia, bilateral Consuelo Mann, N.P. 03/17/2019 H10.022 Other mucopurulent conjunctivitis, left eye Consuelo Mann , N.P. 03/17/2019 H10.45 Other chronic allergic conjunctivitis Consuelo Mann, N.P. 03/17/2019 B37.0 Candidal stomatitis Consuelo Mann, N.P. 03/17/2019 S22.000A Wedge compression fracture of unspecified Consuelo Mann , N.P. thoracic vertebra, 03/17/2019 L89.312 Pressure ulcer of right buttock, stage 2 Consuelo Mann, N.P. 03/17/2019 M54.17 Radiculopathy, lumbosacral region Consuelo Mann, N.P. 03/17/2019 M54.31 Sciatica, right side Consuelo Mann, N.P. 03/17/2019 M54.41 Lumbago with sciatica, right side Consuelo Mann, N.P. 03/17/2019 R53.83 Other fatigue Consueol Mann, N.P. 03/17/2019 J02.9 Acute pharyngitis, unspecified Consuelo Mann, N.P. 03/17/2019 I71.4 Abdominal aortic aneurysm, without rupture Consuelo Mann, N.P. 03/17/2019 Z68.23 Body mass index (BMI) 23.0-23.9, adult Consuelo Mann, N.P. 03/10/2019 I10 Essential (primary) hypertension Consuelo Mann N.P. 03/10/2019 E78.2 Mixed hyperlipidemia Consuelo Mann, N.P. 03/10/2019 J44.9 Chronic obstructive pulmonary disease, Consuelo Mann, N.P. 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 03/10/2019 N40.0 Benign prostatic hyperplasia without lower Consuelo Mann, N.P. urinary tract sym 03/10/2019 K21.0 Gastro-esophageal reflux disease with Consuelo Mann N.P. esophagitis 03/10/2019 Z68.23 Body mass index (BMI) 23.0-23.9, adult Consuelo Mann N.P. 03/10/2019 J30.2 Other seasonal allergic rhinitis Consuelo Mann, N.P. 03/10/2019 M15.9 Polyosteoarthritis, unspecified Consuelo Mann, N.P. 03/10/2019 M54.5 Low back pain Consuelo Mann, N.P. 03/10/2019 R06.02 Shortness of breath Consuelo Mann N.P. 03/10/2019 R60.0 Localized edema Consuelo Mann N.P. 03/10/2019 E83.42 Hypomagnesemia Consuelo Mann, N.P. 03/10/2019 R97.20 Elevated prostate specific antigen [PSA] Consuelo Mann N.P. 03/10/2019 M54.6 Pain in thoracic spine Consuelo Mann N.P. 03/10/2019 I87.2 Venous insufficiency (chronic) (peripheral) Consuelo Mann N.P. 03/10/2019 H10.403 Unspecified chronic conjunctivitis, bilateral Consuelo Mann N.P. 03/10/2019 H91.8x3 Other specified hearing loss, bilateral Consuelo Mann, N.P. 03/10/2019 L20.9 Atopic dermatitis, unspecified Consuelo Mann, N.P. 03/10/2019 F17.210 Nicotine dependence, cigarettes, Consuelo Mann N.P. uncomplicated 03/10/2019 J30.9 Allergic rhinitis, unspecified Consuelo Mann, N.P. 03/10/2019 J18.9 Pneumonia, unspecified organism Consuelo Mann N.P. 03/10/2019 H92.03 Otalgia, bilateral Cnosuelo Mann N.P. 03/10/2019 H10.022 Other mucopurulent conjunctivitis, left eye Consuelo Mann N.P. 03/10/2019 H10.45 Other chronic allergic conjunctivitis Consuelo Mann N.P. 03/10/2019 B37.0 Candidal stomatitis Consuelo Mann N.P. 03/10/2019 S22.000A Wedge compression fracture of unspecified Consuelo Mann , N.P. thoracic vertebra, 03/10/2019 L89.312 Pressure ulcer of right buttock, stage 2 Consuelo Mann N.P. 03/10/2019 M54.17 Radiculopathy, lumbosacral region Consuelo Mann N.P. 03/10/2019 M54.31 Sciatica, right side Consuelo Mann N.PLuis 03/10/2019 M54.41 Lumbago with sciatica, right side Consuelo Mann N.PLuis 03/10/2019 R53.83 Other fatigue Romeo Richards.PLuis 03/10/2019 Z00.01 Encounter for general adult medical Consuelo Mann N.P. examination with abnorma 03/10/2019 J02.9 Acute pharyngitis, unspecified Consuelo Mann N.PLuis 03/10/2019 I71.4 Abdominal aortic aneurysm, without rupture Consuelo Mann N.PLuis 03/07/2019 I10 Essential (primary) hypertension Consuelo Mann N.PLuis 03/07/2019 E78.2 Mixed hyperlipidemia Consuelo Mann N.PLuis 03/07/2019 J44.9 Chronic obstructive pulmonary disease, Consuelo Mann N.P. 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 esophagitis 03/07/2019 J30.2 Other seasonal allergic rhinitis Consuelo Mann N.PLuis 03/07/2019 M15.9 Polyosteoarthritis, unspecified Consuelo Mann N.P. 03/07/2019 M54.5 Low back pain Consuelo Mann N.PLuis 03/07/2019 R06.02 Shortness of breath Consuelo Mann N.PLuis 03/07/2019 R60.0 Localized edema Consuelo Mann N.PLuis 03/07/2019 E83.42 Hypomagnesemia Consuelo Mann N.PLuis 03/07/2019 R97.20 Elevated prostate specific antigen [PSA] Consuelo Mann N.PLuis 03/07/2019 M54.6 Pain in thoracic spine Consuelo Mann N.P. 03/07/2019 I87.2 Venous insufficiency (chronic) (peripheral) Consuelo Mann N.PLuis 03/07/2019 H10.403 Unspecified chronic conjunctivitis, bilateral Consuelo Mann N.P. 03/07/2019 H91.8x3 Other specified hearing loss, bilateral Consuelo Mann, N.P. 03/07/2019 L20.9 Atopic dermatitis, unspecified Consuelo Mann, N.P. 03/07/2019 F17.210 Nicotine dependence, cigarettes, Consuelo Mann, N.P. uncomplicated 03/07/2019 J30.9 Allergic rhinitis, unspecified Consuelo Mann, N.P. 03/07/2019 J18.9 Pneumonia, unspecified organism Consuelo Mann N.P. 03/07/2019 H92.03 Otalgia, bilateral Consuelo Mann, N.P. 03/07/2019 H10.022 Other mucopurulent conjunctivitis, left eye Consuelo Mann , N.P. 03/07/2019 H10.45 Other chronic allergic conjunctivitis Consuelo Mann, N.P. 03/07/2019 B37.0 Candidal stomatitis Consuelo Mann, N.P. 03/07/2019 S22.000A Wedge compression fracture of unspecified Consuelo Mann N.P. thoracic vertebra, 03/07/2019 L89.312 Pressure ulcer of right buttock, stage 2 Consuelo Mann, N.P. 03/07/2019 M54.17 Radiculopathy, lumbosacral region Consuelo Mann, N.P. 03/07/2019 M54.31 Sciatica, right side Consuelo Mann, N.P. 03/07/2019 M54.41 Lumbago with sciatica, right side Consuelo Mann, N.P. 02/07/2019 I10 Essential (primary) hypertension Consuelo Mann N.P. 02/07/2019 E78.2 Mixed hyperlipidemia Consuelo Mann, N.P. 02/07/2019 J44.9 Chronic obstructive pulmonary disease, Consuelo Mann, N.P. unspecified 02/07/2019 I25.10 Atherosclerotic heart disease of hopi Consuelo Mann, N.P. coronary artery with 02/07/2019 E55.9 Vitamin D deficiency, unspecified Consuelo Mann, N.P. 02/07/2019 N40.0 Benign prostatic hyperplasia without lower Consuelo Mann, N.P. urinary tract sym 02/07/2019 K21.0 Gastro-esophageal reflux disease with Consuelo Mann N.P. esophagitis 02/07/2019 J30.2 Other seasonal allergic rhinitis Consuelo Mann, N.P. 02/07/2019 M15.9 Polyosteoarthritis, unspecified Consuelo Mann, N.P. 02/07/2019 M54.5 Low back pain Consuelo Mann N.P. 02/07/2019 R06.02 Shortness of breath Consuelo Mann N.P. 02/07/2019 R60.0 Localized edema Consuelo Mann N.P. 02/07/2019 E83.42 Hypomagnesemia Consuelo Mann N.P. 02/07/2019 R97.20 Elevated prostate specific antigen [PSA] Consuelo Mann N.P. 02/07/2019 M54.6 Pain in thoracic spine Consuelo Mann N.P. 02/07/2019 I87.2 Venous insufficiency (chronic) (peripheral) Consuelo Mann N.P. 02/07/2019 H10.403 Unspecified chronic conjunctivitis, bilateral Consuelo Mann, N.P. 02/07/2019 H91.8x3 Other specified hearing loss, bilateral Consuelo Mann N.P. 02/07/2019 L20.9 Atopic dermatitis, unspecified Consuelo Mann N.P. 02/07/2019 F17.210 Nicotine dependence, cigarettes, Consuelo Mann N.P. uncomplicated 02/07/2019 J30.9 Allergic rhinitis, unspecified Consuelo Mann N.P. 02/07/2019 J18.9 Pneumonia, unspecified organism Consuelo Mann N.P. 02/07/2019 H92.03 Otalgia, bilateral Consuelo Mann N.P. 02/07/2019 H10.022 Other mucopurulent conjunctivitis, left eye Consuelo Mann N.P. 02/07/2019 H10.45 Other chronic allergic conjunctivitis Consuelo Mann N.P. 02/07/2019 B37.0 Candidal stomatitis Consuelo Mann N.P. 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 THANK YOU. [address] [facility] [address] [phone] Zechariah Montes MD Closed [address] [place], [place] [id number] [phone]
--- OUTSIDE RECORDS SUMMARY | 2019-08-19 18:30 | XMS REPORT | Continuity of Care Document ---
:1940 External Reference #:[id number] Author Name Consuelo Mann N.P. 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 06/25/2019 0.5mg Tablets mouth qid prn Marla MGallo SOB/Anxiety Ipratropium one inhalation 180ml [facility] 06/23/2019 [place]/Albuterol treatment every 4 M., M.D. Sulfate hour 0.5-2.5(3)mg/3ML Solution Azithromycin 1 tab by mouth 10tabs J18.9 [facility] 06/20/2019 500mg every day x 10 M., M.D. Tablets days Prednisone 2 tab by mouth 20tabs J18.9 [facility] 06/20/2019 20mg Tablets daily 4 M., M.D. days,30x3d,20x2d, 10x7d Hydrocodone-Acetamino 1 tab by mouth 60tabs J18.9 [facility] 06/20/2019 phen three times a day M., M.DLuis 7.5-325mg Tablets as needed Fluconazole 1 tab by mouth 2tabs J18.9 [facility] 06/20/2019 150mg today and january Marla GutiérrezDLuis Tablets repeat iLAST Day Of Abx Erythromycin apply thin layer 7gm [facility] 05/26/2019 5mg/GM on lesion under l Nelly Gutiérrez Ointment eye 4x daily x 2 weeks Oxygen Generator for continuous J44.9 Ck, [facility] 05/21/2019 oxygen titirate Nelly Gutiérrez up to 4L to maintain o2 sat between 88-96% Nicoderm CQ Uad 28units F17.293 [facility] 05/21/2019 7mg/24HR Nelly Gutiérrez Patches 24HR Aspirin 81 Low Dose 1 by mouth every 90units I10 [facility] 03/10/2019 morning MMarla SmithDLuis 81mg Chewtabs Bacitracin Zinc apply to wound on 28.350gm L89.312 [facility] 03/07/2019 buttocks bid x 14 M. MLuisD. 500Unit/GM Ointment days. after washing with soap and water and pad dry. Combivent Respimat 1 puff twice a 12gm J44.9 [facility] 11/21/2018 day MNelly Smith 20-100mcg/Act Aerosol Prednisolone Acetate 1 drops both eyes 10ml H10.45 [facility] 08/06/2018 1% twice a day as Nelly Gutiérrez Suspension needed Nebulizer use as directed 1units J44.9 [facility] 01/21/2018 Device Nelly Gutiérrez Nebulizer use with 2units J44.9 [facility] 01/21/2018 Kit/Tubing/Mouthpiece nebulizer every 4 M., M.D. hours as needed Kit Betamethasone apply to affected 45gm L20.9 [facility] 12/05/2017 Dipropionate area ( Face) Nelly Gutiérrez 0.05% three times a day Cream as needed Simvastatin 1 by mouth every 90tabs E78.2 [facility] 03/27/2017 40mg night M. MLuisDLuis Tablets Metoprolol Tartrate 1 tab by mouth 90tabs I10 Ck, [facility] 11/16/2016 every day M., M.D. 100mg Tablets Losartan tab one by mouth 90tabs I10 [facility] 03/31/2014 Potassium/Hydrochloro every in the M., M.D. thiazide morning 100-25mg Tablets R60.0 I87.2 Omeprazole 1 by mouth every 90caps K21.0 Ck, timur Gutiérrez, 01/16/[address] burton Villegas K30 History Medications Guiatuss 30ml by mouth 946ml Gal Stover, [...] Ordering Provider Date Solu-Medrol Up To 40MG Romeo Richards.PLuis 06/25/2019 Injection Rocephin 250 Romeo Richards.PLuis 06/23/2019 Injection Solu-Medrol Up To 40MG Romeo Richards.PLuis 06/20/2019 Injection Rocephin 250 Shawn RichardsPLuis 06/20/2019 Injection Solu-Medrol Up To 40MG Romeo Richards.PLuis 10/21/2018 Injection Rocephin 250 Gal Stover M.D. 07/30/2018 Injection Rocephin 250 Romeo Richards.Deborah 05/01/2018 Injection Solu-Medrol 125MG Gal Stover M.D. 12/20/2017 Injection Rocephin 250 Gal Stover M.D. 12/20/2017 Injection Admin Of Pneumovax Gal Stover M.D. 08/19/2015 Injection B12 Gal Stover M.D. 08/17/2011 Injection Immunizations CPT Code Status Date Vaccine Lot # [id number] Given 07/02/2018 Influenza,Unspecified [id number] Given 07/11/2016 Flu Vaccine 3+Yrs Old(Fluzone) [id number] Given 12/02/2015 Zoster Shingles Vaccine For Injection Q2038 Given 08/19/2015 Flu Vaccine 3+Yrs Old(Fluzone) 72620 Given 08/19/2015 Pneumovax [id number] 26871 Given 08/19/2015 Flu Vaccine [id number] Given 06/27/2014 Flu Vaccine Q2038 Given 07/31/2013 Flu Vaccine 3+Yrs Old(Fluzone) [id number] Q2038 Given 07/04/2012 Flu Vaccine 3+Yrs Old(Fluzone) [id number] Given 09/16/2009 Admin Of Influenza [id number] 59129 Given 08/08/2006 Flu Vaccine 43190 Given 07/31/2003 Pneumovax [id number] Vital Signs Date Vital Result Comment 06/25/2019 1:02pm BP Systolic 145 mmHg BP Diastolic 60 mmHg Weight 153.00 lb Heart Rate 83 /min Respiratory Rate 16 /min 06/23/2019 12:56pm BP Systolic 142 mmHg BP Diastolic 62 mmHg Height 68 inches 5'8" Weight 155.00 lb BMI (Body Mass Index) 23.6 kg/m2 Heart Rate 84 /min Respiratory Rate 17 /min Results Test Date Facility Test Result H/L Range Note Laboratory test 06/20/2019 [facility] TSH,Ultras 3.660 mIU/L (0.360- 4.17 finding [address] [facility] ensitive @ 0) (607)- - Free Thyroxine @ 1.34 ng/dL (0.76-1.46) CBC With Diff 06/20/2019 [facility] WBC 15.0 10*3/uL High (4.1-11.0) [address] (607)- - RBC 4.02 10*6/uL Low (4.60-6.10) HGB 11.8 g/dL Low (13.5-18.0) HCT 36.8 % Low (41.0-53.0) MCV 91.4 fL (80.0-95.0) MCH 29.3 pg (27.0-32.0) MCHC 32.1 g/dL (32.0-36.0) RDW 16.3 % High (10.5-14.5) PLT 500 10*3/uL High (150-450) MPV 7.5 fL (7.1-10.7) Neut % 82.0 % High (35.0-75.0) Band % 1.0 % (0.0-11.0) Lymph % 3.0 % Low (16.0-52.0) [place] % 14.0 % High (0.0-8.0) Neut # 12.3 10*3/uL High (1.8-7.7) Band # 0.2 10*3/uL Lymph # 0.5 10*3/uL Low (1.2-4.8) [place] # 2.1 10*3/uL High (0.0-0.8) [place] 1+ Poik 1+ Poly 1+ Large PLT 1+ Diff Comment SLIDE REVIEWED B <SEE NOTE> 1 Lipid 06/20/2019 [facility] Cholesterol @ 125 mg/dL (0-200) [address] [facility] (607)- - Triglyceride @ 90 mg/dL (30-200) HDL Cholesterol @ 36 mg/dL Low (>40) 2 Chol/HDL Ratio 3.5 RATIO 3 LDL Chol (Calc) 71 mg/dL (<130) 4 CMP 06/20/2019 [facility] Sodium 132 mmol/L Low (136-145) [facility] [...] ml/min/1.73m2 Low (>59) GFR Interpretation <SEE NOTE> 5 Laboratory 05/15/2019 [facility] SEE RESULT 6 test finding Pathology BELOW Order Laboratory 05/14/2019 [facility] SEE RESULT 7 test finding Pathology BELOW Order Laboratory 05/13/2019 [place] Occult POSITIVE Abnormal Negative 8, 9 test finding Blood,Stool Ua RFX Micro & 05/13/2019 [place] Urine Color YELLOW Yellow Culture II Urine Clarity CLEAR Clear Urine Glucose - Dipstick NEGATIVE mg/dL Negative Urine Bilirubin - Dipstick NEGATIVE Negative Urine Ketone NEGATIVE mg/dL Negative Urine Specific [place] 1.010 Normal 1.010-1.030 Urine Blood NEGATIVE Negative Urine PH 6.5 Normal 6.5-7.5 Urine Protein - Dipstick NEGATIVE mg/dL Negative Urine Urobilinogen - Dipstick 0.2 E.U./dL Normal 0.2-1.0 Urine Nitrite - Dipstick NEGATIVE Negative Urine Leuk Esterase NEGATIVE Negative Source: URINE, CLEAN CAT <SEE NOTE> 10 CBS W/Automated Diff 05/13/2019 [place] White Blood Count 12.1 K/uL High 3.4-10.5 [...] 33.0-73.0 Lymph % 5.6 % Low 20.0-42.0 [place] % 4.6 % Normal 0.0-10.0 Eo% 0.6 % Normal 0.0-6.6 Bas% 0.2 % Normal 0.0-1.1 Immature Grans 1.1 % Normal 0.0-5.0 NRBC % 0.0 /100WBC < 10/ 100 WBC Neut# 10.68 K/uL High 1.8-7.0 Lymph # 0.68 K/uL Low 1.0-4.0 [place] # 0.56 K/uL Normal 0.0-0.8 Eos # 0.07 K/uL Normal 0.0-0.5 Baso # 0.02 K/uL Normal 0.0-0.1 Immature Grans Absolute 0.13 K/uL NRBC # 0.00 K/uL Lactic Acid 05/13/2019 [place] Lactic Acid 2.8 mmol/L Critical high 0.4- 1.9 Lab Reflex >2.0 for Sepsis? Y Comprehensive Metabolic Panel 05/13/2019 [place] Glucose 105 mg/dL Normal 74-106 BUN 18 mg/dL Normal 7-18 Creatinine 1.2 mg/dL Normal 0.6-1.3 Glom Filtration Rate, Estimate >60 mL/min >60 If >60 mL/min >60 11 BUN/Creat 15.0 ratio Sodium 139 mmol/L Normal [...] U/L Normal 45-117 Laboratory test finding 05/13/2019 [place] Lipase 224 U/L Normal 56-289 NT-proBNP 2852.0 pg/mL High <450 Laboratory test 05/12/2019 [place] Occult POSITIVE Abnormal Negative 12 , 13 finding Blood,Stool Laboratory test 05/11/2019 [place] Occult NEGATIVE Negative 14, 15 finding Blood,Stool CBC 05/01/2019 [place] White Blood 14.4 K/uL High 3.4-10.5 16 Count Red Blood Count 3.27 M/uL Low [...] 10/ 100 WBC Basic Metabolic Panel 05/01/2019 [place] Glucose 119 mg/dL High 74-106 BUN 36 mg/dL High 7-18 Creatinine 1.1 mg/dL Normal 0.6-1.3 Glom Filtration Rate, Estimate >60 mL/min >60 If >60 mL/min >60 17 BUN/Creat 32.7 ratio Sodium 139 mmol/L Normal 136-145 Potassium 3.2 mmol/L Low 3.5-5.1 Chloride 101 mmol/L Normal 98-107 Carbon Dioxide 33 mmol/L High 21-32 Anion Gap 5 mEq/L Low 8-16 Calcium 8.9 mg/dL Normal 8.5-10.1 Basic Metabolic Panel 04/29/2019 [place] Glucose 130 mg/dL High 74-106 18 BUN 30 mg/dL High 7-18 Creatinine 1.0 mg/dL Normal 0.6-1.3 Glom Filtration Rate, Estimate >60 mL/min >60 If >60 mL/min >60 19 BUN/Creat 30.0 ratio Sodium 140 mmol/L Normal 136-145 Potassium 4.0 mmol/L Normal 3.5-5.1 Chloride 105 mmol/L Normal 98-107 Carbon Dioxide 27 mmol/L Normal 21-32 Anion Gap 8 mEq/L Normal 8-16 Calcium 9.1 mg/dL Normal 8.5-10.1 Basic Metabolic Panel 04/28/2019 [place] Glucose 115 mg/dL High 74-106 BUN 31 mg/dL High 7-18 Creatinine 1.0 mg/dL Normal 0.6-1.3 Glom Filtration Rate, Estimate >60 mL/min >60 If >60 mL/min >60 20 BUN/Creat 31.0 ratio Sodium 141 mmol/L Normal 136-145 Potassium 4.1 mmol/L Normal 3.5-5.1 Chloride 107 mmol/L Normal 98-107 Carbon Dioxide 26 mmol/L Normal 21-32 Anion Gap 8 mEq/L Normal 8-16 Calcium 8.4 mg/dL Low 8.5-10.1 CBS W/Automated Diff 04/27/2019 [place] White Blood Count 13.8 K/uL High 3.4-10.5 [...] 33.0-73.0 Lymph % 3.3 % Low 20.0-42.0 [place] % 5.7 % Normal 0.0-10.0 Eo% 0.6 % Normal 0.0-6.6 Bas% 0.2 % Normal 0.0-1.1 Immature Grans 1.9 % Normal 0.0-5.0 NRBC % 0.3 /100WBC < 10/ 100 WBC Neut# 12.21 K/uL High 1.8-7.0 Lymph # 0.45 K/uL Low 1.0-4.0 [place] # 0.79 K/uL Normal 0.0-0.8 Eos # 0.08 K/uL Normal 0.0-0.5 Baso # 0.03 K/uL Normal 0.0-0.1 Immature Grans Absolute 0.26 K/uL NRBC # 0.04 K/uL Basic Metabolic Panel 04/27/2019 [place] Glucose 129 mg/dL High 74-106 BUN 27 mg/dL High 7-18 Creatinine 0.9 mg/dL Normal 0.6-1.3 Glom Filtration Rate, Estimate >60 mL/min >60 If >60 mL/min >60 21 BUN/Creat 30.0 ratio Sodium 139 mmol/L Normal 136-145 Potassium 3.6 mmol/L Normal 3.5-5.1 Chloride 106 mmol/L Normal 98-107 Carbon Dioxide 23 mmol/L Normal 21-32 Anion Gap 10 mEq/L Normal 8-16 Calcium 8.6 mg/dL Normal 8.5-10.1 Basic Metabolic Panel 04/26/2019 [place] Glucose 124 mg/dL High 74-106 BUN 26 mg/dL High 7-18 Creatinine 0.8 mg/dL Normal 0.6-1.3 Glom Filtration Rate, Estimate >60 mL/min >60 If >60 mL/min >60 22 BUN/Creat 32.5 ratio Sodium 140 mmol/L Normal 136-145 Potassium 3.9 mmol/L Normal 3.5-5.1 Chloride 108 mmol/L High 98-107 Carbon Dioxide 25 mmol/L Normal 21-32 Anion Gap 7 mEq/L Low 8-16 Calcium 8.3 mg/dL Low 8.5-10.1 Lactic Acid 04/25/2019 [place] Lactic Acid 1.4 mmol/L Normal 0.4-1.9 Lab Reflex >2.0 for Sepsis? N Basic Metabolic Panel 04/25/2019 [place] Glucose 133 mg/dL High 74-106 BUN 18 mg/dL Normal 7-18 Creatinine 0.8 mg/dL Normal 0.6-1.3 Glom Filtration Rate, Estimate >60 mL/min >60 If >60 mL/min >60 23 BUN/Creat 22.5 ratio Sodium 138 mmol/L Normal 136-145 Potassium 3.5 mmol/L Normal 3.5-5.1 Chloride 105 mmol/L Normal 98-107 Carbon Dioxide 24 mmol/L Normal 21-32 Anion Gap 9 mEq/L Normal 8-16 Calcium 8.4 mg/dL Low 8.5-10.1 CBS W/Automated Diff 04/24/2019 [place] White Blood 10.4 K/uL Normal 3.4 -10.5 [...] 33.0-73.0 Lymph % 3.5 % Low 20.0-42.0 [place] % 1.4 % Normal 0.0-10.0 Eo% 0.0 % Normal 0.0-6.6 Bas% 0.0 % Normal 0.0-1.1 Immature Grans 0.7 % Normal 0.0-5.0 NRBC % 0.0 /100WBC < 10/ 100 WBC Neut# 9.79 K/uL High 1.8-7.0 Lymph # 0.36 K/uL Low 1.0-4.0 [place] # 0.14 K/uL Normal 0.0-0.8 Eos # 0.00 K/uL Normal 0.0-0.5 Baso # 0.00 K/uL Normal 0.0-0.1 Immature Grans Absolute 0.07 K/uL NRBC # 0.00 K/uL Laboratory test 04/24/2019 [place] Lactic Acid 1.8 mmol/L Normal 0.4- 1.9 finding Lactic Acid 04/24/2019 [place] Lactic Acid 2.2 mmol/L Critical high 0.4- 1.9 Lab Reflex >2.0 for Sepsis? Y Lactic Acid 04/23/2019 [place] Lactic Acid 2.2 mmol/L Critical high 0.4- 1.9 Lab Reflex >2.0 for Sepsis? Y Blood Culture 04/23/2019 [place] Blood Culture Aerobic NO GROWTH: FINAL < SEE 24 NOTE> Blood Culture Anaerobic NO GROWTH: FINAL <SEE NOTE> 25 Laboratory test 04/23/2019 [place] D-Dimer, 3.18 ug/mL 26, 27 finding Quantitative Lactic Acid 04/23/2019 [place] Lactic Acid 3.6 mmol/L Critical 0.4- high 1.9 Lab Reflex >2.0 for Sepsis? Y Aot Request 04/23/2019 [place] Aot Request Test(s) added 28 Tests to be added: crp Blood Culture 04/23/2019 [place] Blood Culture NO GROWTH: FINAL 29, 30 Aerobic <SEE NOTE> Blood Culture Anaerobic NO GROWTH: FINAL <SEE NOTE> 31 Laboratory test 03/10/2019 [facility] Rheumatoid Factor <15 IU/mL (0- 15) finding [address] [facility] @ (607)- - C Reactive Protein @ 0.5 mg/dL (0.0-0.5) Esr 8 mm/h (0-20) Uric Acid 6.8 mg/dL (3.5-7.2) TSH,Ultrasensitive @ 1.940 mIU/L (0.360-4.170) PSA Free And 03/10/2019 [facility] PSA Total 4.6 ng/mL High (0.0-4.0) Total [address] (607)- - PSA Free 0.9 ng/mL PSA % Free 20 % 32 Laboratory test 03/10/2019 [facility] 25 Hydroxy Vit D 20 ng/mL Low (31 -100) 33 finding [address] @ (607)- - Lipid Extended 03/10/2019 [facility] Appearance CLEAR (Clear) Panel [address] [facility] [facility] (607)- - Cholesterol @ 170 mg/dL (0-200) Triglyceride @ 137 mg/dL (30-200) HDL Cholesterol @ 71 mg/dL (>40) 34 Chol/HDL Ratio 2.4 RATIO 35 Direct LDL @ 85 mg/dL (<130) 36 VLDL (Calc) 14 mg/dL (0-30) Laboratory test 03/10/2019 [facility] Magnesium 1.7 mg/dL (1.7-2.4) finding [address] (607)- - CMP 03/10/2019 [facility] Sodium 141 mmol/L (136-145) [address] [facility] [...] >60 ml/min/1.73m2 (>59) GFR Interpretation <SEE NOTE> 37 CBC With Diff 03/10/2019 [facility] WBC 14.5 10*3/uL High (4.1-11.0) [address] [facility] (607)- - RBC 4.61 10*6/uL (4.60-6.10) HGB 14.8 g/dL (13.5-18.0) HCT 44.5 % (41.0-53.0) MCV 96.7 fL High (80.0-95.0) MCH 32.1 pg High (27.0-32.0) MCHC 33.2 g/dL (32.0-36.0) RDW 14.2 % (10.5-14.5) PLT 301 10*3/uL (150-450) MPV 7.1 fL (7.1-10.7) Neut % 68.0 % (35.0-75.0) Lymph % 21.1 % (16.0-52.0) [place] % 9.9 % High (0.0-8.0) Eos % 0.5 % (0.0-5.0) Baso % 0.5 % (0.0-4.0) Neut # 9.9 10*3/uL High (1.8-7.7) Lymph # 3.1 10*3/uL (1.2-4.8) [place] # 1.4 10*3/uL High (0.0-0.8) Eos # 0.1 10*3/uL (0.0-0.5) Baso # 0.1 10*3/uL (0.0-0.2) 1 SLIDE REVIEWED BY MEDICAL SALES ASSOCIATE 85659 10.7.19. 2 PER NCEP ATP III GUIDELINES: RESULTS [...] - 189 VERY HIGH > 189 5 NORMAL KIDNEY FUNCTION OR MILD DISEASE - GFR >OR= 60 CHRONIC KIDNEY DISEASE - GFR 15 - 59 RENAL FAILURE - GFR <15 Est. GFR calculation based on the MDRD study equation, which assumes a steady state for creatinine. Est. GFR should not be used for medication dosing. 6 SEE RESULT BELOW Name: BLADE SANCHEZ : [address]: Una Swann MD Acct: [id number] Unit: [id number] AGE: 79 Location: [place] [address] Re05/13/19 SEX: M Status: ADM IN SPEC: [id number] KRISTI: 05/15/[address]: Jesus Shi DO REQ: [id number] RECD: 05/15/19 STATUS: ESTEBAN VALLADARES DR: Gal [...] CONTINUED ON NEXT PAGE DEPARTMENT OF PATHOLOGY, [address] [place] [address] Abraham Cat M.D. Director [place] # [id number] RUN DATE: 05/16/19 [facility] LAB LIVE PAGE 2 Patient: BLADE SANCHEZ [id number] (Continued) GROSS DESCRIPTION (Continued) Signed by and Reported on: Skyla Parr MD 05/16/19 1450 END OF REPORT DEPARTMENT OF PATHOLOGY, [address] [place] [address] Abraham Cat M.D. Director [facility] # [id number] 7 SEE RESULT BELOW Name: BLADE SANCHEZ : [address]: Una Swann MD Acct: [id number] Unit: [id number] AGE: 79 Location: [facility] 412- Re05/13/19 SEX: M Status: ADM IN SPEC: [id number] KRISTI: 05/14/19- SUBM DR: Magnolia Mon MD REQ: [id number] RECD: 05/14/19 STATUS: ESTEBAN VALLADARES DR: Dung Mann SPINNER OPEN END _ ORDERED: LEVEL 4 FINAL DIAGNOSIS Stomach, [...] and Reported on: Skyla Parr MD 05/16/19 1325 END OF REPORT DEPARTMENT OF PATHOLOGY, [address] [place] [address] Abraham Cat M.D. Director [facility] # [id number] 8 GI BLEED 9 Method: Greer Roxy Hemoccult Card 10 URINE, CLEAN CATCH 11 Note: Persistent reduction for 3 months or more in an eGFR <60 mL/min/1.73 m2 defines CKD. Patients with eGFR values >/=60 mL/min/1.73 m2 may also have CKD if evidence of persistent proteinuria is present. The original MDRD equation for estimated GFR is not valid for patients less than 18 years of age. Additional information may be found at [email or web address]. 12 D64.9 Z79.01 Z79.02 13 Method: Greer Roxy Hemoccult Card 14 D64.9 15 Method: Greer Roxy Hemoccult Card 16 APPROVED 17 Note: Persistent reduction for 3 months or more in an eGFR <60 mL/min/1.73 m2 defines CKD. Patients with eGFR values >/=60 mL/min/1.73 m2 may also have CKD if evidence of persistent proteinuria is present. The original MDRD equation for estimated GFR is not valid for patients less than 18 years of age. Additional information may be found at [email or web address]. 18 SEPSIS, PNEUMONIA 19 Note: Persistent reduction for 3 months or more in an eGFR <60 mL/min/1.73 m2 defines CKD. Patients with eGFR values >/=60 mL/min/1.73 m2 may also have CKD if evidence of persistent proteinuria is present. The original MDRD equation for estimated GFR is not valid for patients less than 18 years of age. Additional information may be found at [email or web address]. 20 Note: Persistent reduction for 3 months or more in an eGFR <60 mL/min/1.73 m2 defines CKD. Patients with eGFR values >/=60 mL/min/1.73 m2 may also have CKD if evidence of persistent proteinuria is present. The original MDRD equation for estimated GFR is not valid for patients less than 18 years of age. Additional information may be found at [email or web address]. 21 Note: Persistent reduction for 3 months [...] information may be found at [email or web address]. 24 NO GROWTH: FINAL REPORT 25 NO GROWTH: FINAL REPORT 26 REF BY CONSUELO WHITE CP/DIFFICULTY BREATHING. 27 <=0.49 ug/mL - Low likelihood of DIC, DVT or Pulmonary Embolism >0.49 ug/mL - Additional testing should be done to rule out DIC, DVT, or Pulmonary embolism as clinically indicated. ([facility] has established a 97.89% negative predictive value for thrombotic disease when a cutoff value of 0.5 ug/mL is used.) 28 Tests: crp Instructions: 29 SEPSIS, PNEUMONIA 30 NO GROWTH: FINAL REPORT 31 NO GROWTH: FINAL REPORT 32 % FREE PSA PROBABILITY OF CANCER 0 [...] DIAGNOSIS OF CANCER. (See: BRENDA 1998; 279: 9649-3577) METHOD USED TO ASSAY BOTH FREE PSA AND TOTAL PSA IS SIEMENS Personal Estate ManagerTA LOCI CHEMILUMINESCENT IMMUNOASSAY (CALIBRATION TRACEABLE TO WHO 1ST , 1998, 96/668). RESULTS SHOULD NOT BE INTERPRETED ABSOLUTE EVIDENCE FOR THE PRESENCE OR ABSENCE OF MALIGNANT DISEASE. VALUES OBTAINED WITH DIFFERENT ASSAY METHODS OR KITS CANNOT BE USED INTERCHANGEABLY. 33 A REVIEW OF THE LITERATURE SUGGESTS THE FOLLOWING RANGES FOR THE CLASSIFICATION OF 25-OH VITAMIN D STATUS: VITAMIN D STATUS 25-OH VITAMIN D DEFICIENCY <20 NG/ML INSUFFICIENCY 20-30 NG/ML SUFFICIENCY 31 - 100 NG/ML TOXICITY > 100 NG/ML A PEDIATRIC REFERENCE RANGE HAS NOT BEEN ESTABLISHED USING THIS METHOD. 34 PER NCEP ATP III GUIDELINES: RESULTS LOWER THAN 40 MG/DL ARE SUGGESTIVE OF INCREASED RISK FOR CORONARY ARTERY DISEASE. RESULTS > OR = TO 60 MG/DL ARE CONSIDERED A NEGATIVE RISK FACTOR. 35 INTERPRETATION OF CHOL-HDL RATIO CHD RISK FEMALE MALE VERY HIGH >8.3 >14.3 HIGH 5.6- 8.3 6.7- 14.3 AVERAGE 3.7- 5.6 4.0- 6.7 BELOW AVERAGE 2.5- 3.7 2.7- 4.0 PROTECTED <2.5 <2.7 36 PER NCEP ATP III GUIDELINES: OPTIMAL < 100 NEAR OPTIMAL 100 - 129 BORDERLINE HIGH 130 - 159 HIGH 160 - 189 VERY HIGH > 189 37 NORMAL KIDNEY FUNCTION OR MILD DISEASE - GFR >OR= 60 CHRONIC KIDNEY DISEASE - GFR 15 - 59 RENAL FAILURE - GFR <15 Est. GFR calculation based on the MDRD study equation, which assumes a steady state for creatinine. Est. GFR should not be used for medication dosing. Procedures Date Code Description Status 06/23/2019 91929 Injection DX/Therapeutic/Prophy Completed 06/20/2019 11918 Injection DX/Therapeutic/Prophy Completed 06/20/2019 62347 Nebulizer-Ippb Treatment Completed 03/10/2019 40240 EKG Completed 02/07/2019 14322 Spirometry Completed 02/07/2019 52017 Tympanometry Completed 10/10/2016 10950449 Colonoscopy Completed Medical Devices Description No Information Available Encounters Type Date Location Provider Dx Diagnosis Office Visit 06/25/2019 [facility] Consuelo Mann, I10 Essential ( primary) 1:00p N.P. hypertension E78.2 Mixed hyperlipidemia J44.9 Chronic obstructive pulmonary disease, unspecified I25.10 Athscl heart disease of [place] coronary artery w/o ang pctrs E55.9 Vitamin [...] (BMI) 23.0-23.9, adult Office Visit 06/23/2019 1:00p [facility] Consuelo Mann, I10 Essential (primary) N.P. hypertension E78.2 Mixed hyperlipidemia J44.9 Chronic obstructive pulmonary disease, unspecified I25.10 Athscl heart disease of [place] coronary artery w/o ang pctrs E55.9 Vitamin [...] (BMI) 23.0-23.9, adult Office Visit 06/20/2019 2:15p [facility] Consuelo Mann, I10 Essential (primary) N.P. hypertension E78.2 Mixed hyperlipidemia J44.9 Chronic obstructive pulmonary disease, unspecified I25.10 Athscl heart disease of [place] coronary artery w/o ang pctrs E55.9 Vitamin [...] (BMI) 23.0-23.9, adult Office Visit 05/26/2019 2:30p [facility] Consuelo Mann, I10 Essential (primary) N.P. hypertension E78.2 Mixed hyperlipidemia J44.9 Chronic obstructive pulmonary disease, unspecified I25.10 Athscl heart disease of [place] coronary artery w/o ang pctrs E55.9 Vitamin [...] (BMI) 23.0-23.9, adult Office Visit 05/21/2019 3:00p [facility] Consuelo Mann, I10 Essential (primary) N.P. hypertension E78.2 Mixed hyperlipidemia J44.9 Chronic obstructive pulmonary disease, unspecified I25.10 Athscl heart disease of [place] coronary artery w/o ang pctrs E55.9 Vitamin [...] (BMI) 23.0-23.9, adult Office Visit 04/23/2019 9:45a [facility] Consuelo Mann, I10 Essential (primary) N.P. hypertension E78.2 Mixed hyperlipidemia J44.9 Chronic obstructive pulmonary disease, unspecified I25.10 Athscl heart disease of [place] coronary artery w/o ang pctrs E55.9 Vitamin [...] (BMI) 23.0-23.9, adult Office Visit 03/31/2019 3:30p [facility] Consuelo Mann, I10 Essential (primary) N.P. hypertension E78.2 Mixed hyperlipidemia J44.9 Chronic obstructive pulmonary disease, unspecified I25.10 Athscl heart disease of [place] coronary artery w/o ang pctrs E55.9 Vitamin [...] (BMI) 23.0-23.9, adult Office Visit 03/17/2019 3:15p [facility] Consuelo Mann, I10 Essential (primary) N.P. hypertension E78.2 Mixed hyperlipidemia J44.9 Chronic obstructive pulmonary disease, unspecified I25.10 Athscl heart disease of [place] coronary artery w/o ang pctrs E55.9 Vitamin [...] (BMI) 23.0-23.9, adult Office Visit 03/10/2019 10:45a [facility] Consuelo Mann, I10 Essential (primary) N.P. 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 hypertension E78.2 Mixed hyperlipidemia J44.9 Chronic obstructive pulmonary disease, unspecified I25.10 Athscl heart disease of [place] coronary artery w/o ang pctrs E55.9 Vitamin [...] sciatica, right side Office Visit 02/07/2019 3:45p [facility] Consuelo Mann, I10 Essential (primary) N.P. hypertension E78.2 Mixed hyperlipidemia J44.9 Chronic obstructive pulmonary disease, unspecified I25.10 Athscl heart disease of [place] coronary artery w/o ang pctrs E55.9 Vitamin [...] vertebra, init Assessments Date Code Description Provider 06/25/2019 I10 Essential (primary) hypertension Consuelo Mann N.P. 06/25/2019 E78.2 Mixed hyperlipidemia Consuelo Mann N.P. 06/25/2019 J44.9 Chronic obstructive pulmonary disease, Consuelo Mann, N.P. 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 06/25/2019 N40.0 Benign prostatic hyperplasia without lower Consuelo Mann N.PLuis urinary tract symptoms 06/25/2019 K21.0 Gastro-esophageal reflux disease with Consuelo Mann N.P. esophagitis 06/25/2019 J30.2 Other seasonal allergic rhinitis [...] 06/25/2019 F17.210 Nicotine dependence, cigarettes, Consuelo Mann N.PLuis uncomplicated 06/25/2019 J30.9 Allergic rhinitis, unspecified Consuelo Mann N.P. 06/25/2019 J18.9 Pneumonia, unspecified organism Consuelo Mann N.PLuis 06/25/2019 H92.03 Otalgia, bilateral Consuelo Mann N.P. 06/25/2019 H10.022 Other mucopurulent conjunctivitis, left eye Consuelo Mann N.PLuis 06/25/2019 H10.45 Other chronic allergic conjunctivitis Consuelo Mann N.PLuis 06/25/2019 B37.0 Candidal stomatitis Consuelo Mann N.P. 06/25/2019 S22.000A Wedge compression fracture of unspecified Consuelo Mann N.P. thoracic vertebra, initial encounter for closed fracture 06/25/2019 L89.312 Pressure ulcer of right buttock, stage 2 Consuelo Mann N.P. 06/25/2019 M54.17 Radiculopathy, lumbosacral region Consuelo Mann N.P. 06/25/2019 M54.31 Sciatica, right side Consuelo Mann N.P. 06/25/2019 M54.41 Lumbago with sciatica, right side Consuelo Mann N.P. 06/25/2019 R53.83 Other fatigue Consuelo Mann N.P. 06/25/2019 I71.4 Abdominal aortic aneurysm, without rupture Consuelo Mann N.P. 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 06/25/2019 I73.9 Peripheral vascular disease, unspecified Consuelo Mann N.P. 06/25/2019 R07.9 Chest pain, unspecified Consuelo Mann N.P. 06/25/2019 F17.293 Nicotine dependence, other tobacco product, Consuelo Mann N.P. with withdrawal 06/25/2019 Z68.23 Body mass index (BMI) 23.0-23.9, adult Consuelo Mann N.P. 06/23/2019 I10 Essential (primary) hypertension Consuelo Mann N.P. 06/23/2019 E78.2 Mixed hyperlipidemia Consuelo Mann N.P. 06/23/2019 J44.9 Chronic obstructive pulmonary disease, Consuelo Mann N.P. 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 06/23/2019 N40.0 Benign prostatic hyperplasia without lower Consuelo Mann, N.PLuis urinary tract symptoms 06/23/2019 K21.0 Gastro-esophageal [...] specified hearing loss, bilateral Consuelo Mann, N.P. 06/23/2019 L20.9 Atopic dermatitis, unspecified Consuelo Mann N.P. 06/23/2019 F17.210 Nicotine dependence, cigarettes, Consuelo Mann N.P. uncomplicated 06/23/2019 J30.9 Allergic rhinitis, unspecified Consuelo Mann N.P. 06/23/2019 J18.9 Pneumonia, unspecified organism Consuelo Mann N.P. 06/23/2019 H92.03 Otalgia, bilateral Consuelo Mann N.P. 06/23/2019 H10.022 Other mucopurulent conjunctivitis, left eye Consuelo Mann N.P. 06/23/2019 H10.45 Other chronic allergic conjunctivitis Consuelo Mann N.P. 06/23/2019 B37.0 Candidal stomatitis Consuelo Mann N.P. 06/23/2019 S22.000A Wedge compression fracture of unspecified Consuelo Mann N.PLuis thoracic vertebra, initial encounter for closed fracture 06/23/2019 L89.312 Pressure ulcer of right buttock, stage 2 Consuelo Mann N.P. 06/23/2019 M54.17 Radiculopathy, lumbosacral region Consuelo Mann N.P. 06/23/2019 M54.31 Sciatica, right side Consuelo Mann N.P. 06/23/2019 M54.41 Lumbago with sciatica, right side Consuelo Mann N.P. 06/23/2019 R53.83 Other fatigue Consuelo Mann N.P. 06/23/2019 I71.4 Abdominal aortic aneurysm, without rupture Consuelo Mann N.P. 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 06/20/2019 N40.0 Benign prostatic hyperplasia without lower Consuelo Mann N.PLuis urinary tract symptoms 06/20/2019 K21.0 Gastro-esophageal reflux disease with Consuelo Mann N.PLuis esophagitis 06/20/2019 J30.2 Other seasonal allergic rhinitis Consuelo Mann N.P. 06/20/2019 M15.9 Polyosteoarthritis, unspecified Consuelo Mann N.P. 06/20/2019 M54.5 Low back pain Consuelo Mann N.P. 06/20/2019 R06.02 Shortness of breath Consuelo Mann N.P. 06/20/2019 R60.0 Localized edema Consuelo [...] 06/20/2019 F17.210 Nicotine dependence, cigarettes, Consuelo Mann N.P. uncomplicated 06/20/2019 J30.9 Allergic rhinitis, unspecified Consuelo Mann, N.P. 06/20/2019 J18.9 Pneumonia, unspecified organism Consuelo Mann, N.P. 06/20/2019 H92.03 Otalgia, bilateral Consuelo Mann N.P. 06/20/2019 H10.022 Other mucopurulent conjunctivitis, left eye Consuelo Mann N.P. 06/20/2019 H10.45 Other chronic allergic conjunctivitis Consuelo Mann, N.P. 06/20/2019 B37.0 Candidal stomatitis Consuelo Mann N.P. 06/20/2019 S22.000A Wedge compression fracture of unspecified Consuelo Mann N.PLuis thoracic vertebra, initial encounter for closed fracture 06/20/2019 L89.312 Pressure ulcer of right buttock, stage 2 Consuelo Mann N.P. 06/20/2019 M54.17 Radiculopathy, lumbosacral region Consuelo Mann N.P. 06/20/2019 M54.31 Sciatica, right side Consuelo Mann N.P. 06/20/2019 M54.41 Lumbago with sciatica, right side Consuelo Mann, N.P. 06/20/2019 R53.83 Other fatigue Consuelo Mann, N.P. 06/20/2019 I71.4 Abdominal aortic aneurysm, without rupture Consuelo Mann N.P. 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 06/20/2019 I73.9 Peripheral vascular disease, unspecified Consuelo Mann N.P. 06/20/2019 R07.9 Chest pain, unspecified Consuelo Mann N.P. 06/20/2019 F17.293 Nicotine dependence, other tobacco product, Consuelo Mann N.PLuis with withdrawal 06/20/2019 Z68.23 Body mass index (BMI) 23.0-23.9, adult Consuelo Mann N.P. 05/26/2019 I10 Essential (primary) hypertension Consuelo Mann N.P. 05/26/2019 E78.2 Mixed hyperlipidemia Consuelo Mann N.P. 05/26/2019 J44.9 Chronic obstructive pulmonary disease, Consuelo Mann, N.P. unspecified 05/26/2019 I25.10 Atherosclerotic heart disease of [place] Romeo Richards.Deborah coronary artery with 05/26/2019 E55.9 Vitamin D deficiency, unspecified Consuelo Mann N.P. 05/26/2019 N40.0 Benign prostatic hyperplasia without lower Consuelo Mann N.PLuis urinary tract sym 05/26/2019 K21.0 Gastro-esophageal reflux disease with Romeo Richards.PLuis esophagitis 05/26/2019 J30.2 Other seasonal allergic rhinitis Consuelo Mann N.P. 05/26/2019 M15.9 Polyosteoarthritis, unspecified Consuelo Mann N.P. 05/26/2019 M54.5 Low back pain Consuelo Mann N.P. 05/26/2019 R06.02 Shortness of breath Consuelo Mann N.P. 05/26/2019 R60.0 Localized edema Consuelo Mann N.P. 05/26/2019 E83.42 Hypomagnesemia Consuelo Mann N.P. 05/26/2019 R97.20 Elevated prostate specific antigen [PSA] Consuelo Mann N.P. 05/26/2019 M54.6 Pain in thoracic spine Consuelo Mann N.P. 05/26/2019 I87.2 Venous insufficiency (chronic) (peripheral) Consuelo Mann N.P. 05/26/2019 H10.403 Unspecified chronic conjunctivitis, bilateral Consuelo Mann N.P. 05/26/2019 H91.8x3 Other specified hearing loss, bilateral Consuelo Mann N.P. 05/26/2019 L20.9 Atopic dermatitis, unspecified Consuelo Mann N.P. 05/26/2019 F17.210 Nicotine dependence, cigarettes, Consuelo Mann N.PLuis uncomplicated 05/26/2019 J30.9 Allergic rhinitis, unspecified Consuelo Mann N.P. 05/26/2019 J18.9 Pneumonia, unspecified organism Consuelo Mann N.P. 05/26/2019 H92.03 Otalgia, bilateral Consuelo Mann N.P. 05/26/2019 H10.022 Other mucopurulent conjunctivitis, left eye Consuelo Mann N.P. 05/26/2019 H10.45 Other chronic allergic conjunctivitis Consuelo Mann N.P. 05/26/2019 B37.0 Candidal stomatitis Consuelo Mann N.P. 05/26/2019 S22.000A Wedge compression fracture of unspecified Consuelo Mann , N.P. thoracic vertebra, 05/26/2019 L89.312 Pressure ulcer of right buttock, stage 2 Consuelo Mann, N.P. 05/26/2019 M54.17 Radiculopathy, lumbosacral region Consuelo Mann, N.P. 05/26/2019 M54.31 Sciatica, right side Consuelo Mann, N.P. 05/26/2019 M54.41 Lumbago with sciatica, right side Consuelo Mann, N.P. 05/26/2019 R53.83 Other fatigue Consuelo Mann, N.P. 05/26/2019 I71.4 Abdominal aortic aneurysm, without rupture Consuelo Mann N.P. 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 05/26/2019 I73.9 Peripheral vascular disease, unspecified [...] unspecified 05/21/2019 I25.10 Atherosclerotic heart disease of [place] Consuelo Mann N.PLuis coronary artery with 05/21/2019 E55.9 Vitamin D deficiency, unspecified Consuelo Mann, N.P. 05/21/2019 N40.0 Benign prostatic hyperplasia without lower Consuelo Mann, N.P. urinary tract sym 05/21/2019 K21.0 Gastro-esophageal reflux disease with Consuelo Mann, N.P. esophagitis 05/21/2019 J30.2 Other seasonal allergic rhinitis Consuelo Mann N.P. 05/21/2019 M15.9 Polyosteoarthritis, unspecified Consuelo Mann N.P. 05/21/2019 M54.5 Low back pain Consuelo Mann N.P. 05/21/2019 R06.02 Shortness of breath Consuelo Mann, N.P. 05/21/2019 R60.0 Localized edema Consuelo Mann N.P. 05/21/2019 E83.42 Hypomagnesemia Consuelo Mann, N.P. 05/21/2019 R97.20 Elevated prostate specific antigen [PSA] Consuelo Mann N.P. 05/21/2019 M54.6 Pain in thoracic spine Consuelo Mann N.P. 05/21/2019 I87.2 Venous insufficiency (chronic) (peripheral) Consuelo Mann, N.P. 05/21/2019 H10.403 Unspecified chronic conjunctivitis, bilateral Consuelo Mann, N.P. 05/21/2019 H91.8x3 Other specified hearing loss, bilateral Consuelo Mann, N.P. 05/21/2019 L20.9 Atopic dermatitis, unspecified Consuelo Mann, N.P. 05/21/2019 F17.210 Nicotine dependence, cigarettes, Consuelo Mann N.P. uncomplicated 05/21/2019 J30.9 Allergic rhinitis, unspecified Consuelo Mann, N.P. 05/21/2019 J18.9 Pneumonia, unspecified organism Consuelo Mann N.P. 05/21/2019 H92.03 Otalgia, bilateral Consuelo Mann, N.P. 05/21/2019 H10.022 Other mucopurulent conjunctivitis, left eye Consuelo Mann N.P. 05/21/2019 H10.45 Other chronic allergic conjunctivitis Consuelo Mann N.P. 05/21/2019 B37.0 Candidal stomatitis Consuelo Mann N.P. 05/21/2019 S22.000A Wedge compression fracture of unspecified Consuelo Mann , N.P. thoracic vertebra, 05/21/2019 L89.312 Pressure ulcer of right buttock, stage 2 Consuelo Mann, N.P. 05/21/2019 M54.17 Radiculopathy, lumbosacral region Consuelo Mann, N.P. 05/21/2019 M54.31 Sciatica, right side Consuelo Mann N.P. 05/21/2019 M54.41 Lumbago with sciatica, right side Consuelo Mann N.P. 05/21/2019 R53.83 Other fatigue Consuelo Mann, N.P. 05/21/2019 I71.4 Abdominal aortic aneurysm, without rupture Consuelo Mann, N.P. 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 05/21/2019 I73.9 Peripheral vascular disease, unspecified Consuelo Mann, N.P. 05/21/2019 R07.9 Chest pain, unspecified Consuelo Mann, N.P. 05/21/2019 F17.293 Nicotine dependence, other tobacco product, Consuelo Mann N.P. with withdrawal 05/21/2019 Z68.23 Body mass index (BMI) 23.0-23.9, adult Consuelo Mann, N.P. 04/23/2019 I10 Essential (primary) hypertension Consuelo Mann N.P. 04/23/2019 E78.2 Mixed hyperlipidemia Consuelo Mann N.P. 04/23/2019 J44.9 Chronic obstructive pulmonary disease, Consuelo Mann, N.P. unspecified 04/23/2019 I25.10 Atherosclerotic heart disease of [place] Consuelo Mann N.PLuis coronary artery with 04/23/2019 E55.9 Vitamin D deficiency, unspecified Consuelo Mann N.P. 04/23/2019 N40.0 Benign prostatic hyperplasia without lower Consuelo Mann, N.P. urinary tract sym 04/23/2019 K21.0 Gastro-esophageal reflux disease with Consuelo Mann N.PLuis esophagitis 04/23/2019 J30.2 Other seasonal allergic rhinitis Consuelo Mann N.P. 04/23/2019 M15.9 Polyosteoarthritis, unspecified Consuelo Mann N.P. 04/23/2019 M54.5 Low back pain Consuelo Mann N.P. 04/23/2019 R06.02 Shortness of breath Consuelo Mann N.P. 04/23/2019 R60.0 Localized edema Consuelo Mann N.P. 04/23/2019 E83.42 Hypomagnesemia Consuelo Mann, N.P. 04/23/2019 R97.20 Elevated prostate specific antigen [PSA] Consuelo Mann N.P. 04/23/2019 M54.6 Pain in thoracic spine Consuelo Mann N.P. 04/23/2019 I87.2 Venous insufficiency (chronic) (peripheral) Consuelo Mann N.P. 04/23/2019 H10.403 Unspecified chronic conjunctivitis, bilateral Consuelo Mann N.P. 04/23/2019 H91.8x3 Other specified hearing loss, bilateral Consuelo Mann, N.P. 04/23/2019 L20.9 Atopic dermatitis, unspecified Consuelo Mann, N.P. 04/23/2019 F17.210 Nicotine dependence, cigarettes, Consuelo Mann, N.P. uncomplicated 04/23/2019 J30.9 Allergic rhinitis, unspecified Consuelo Mann, N.P. 04/23/2019 J18.9 Pneumonia, unspecified organism Consuelo Mann, N.P. 04/23/2019 H92.03 Otalgia, bilateral Consuelo Mann, N.P. 04/23/2019 H10.022 Other mucopurulent conjunctivitis, left eye Consuelo Mann , N.P. 04/23/2019 H10.45 Other chronic allergic conjunctivitis Consuelo Mann, N.P. 04/23/2019 B37.0 Candidal stomatitis Consuelo Mann, N.P. 04/23/2019 S22.000A Wedge compression fracture of unspecified Consuelo Mann N.PLuis thoracic vertebra, 04/23/2019 L89.312 Pressure ulcer of [...] 04/23/2019 I73.9 Peripheral vascular disease, unspecified Consuelo Mann, N.P. 04/23/2019 R07.9 Chest pain, unspecified Consuelo Mann, N.P. 04/23/2019 Z68.23 Body mass index (BMI) 23.0-23.9, adult Consuelo Mann, N.P. 03/31/2019 I10 Essential (primary) hypertension Consuelo Mann N.P. 03/31/2019 E78.2 Mixed hyperlipidemia Consuelo Mann N.P. 03/31/2019 J44.9 Chronic obstructive pulmonary disease, Consuelo Mann N.P. unspecified 03/31/2019 I25.10 Atherosclerotic heart disease of [place] Romeo Richards.Deborah coronary artery with 03/31/2019 E55.9 Vitamin D deficiency, unspecified Consuelo Mann N.P. 03/31/2019 N40.0 Benign prostatic hyperplasia without lower Consuelo Mann N.Deborah urinary tract sym 03/31/2019 K21.0 Gastro-esophageal reflux disease with Romeo Richards.Deborah esophagitis 03/31/2019 J30.2 Other seasonal allergic rhinitis Consuelo Mann N.P. 03/31/2019 M15.9 Polyosteoarthritis, unspecified Consuelo Mann N.P. 03/31/2019 M54.5 Low back pain Consuelo Mann N.P. 03/31/2019 R06.02 Shortness of breath Consuelo Mann N.P. 03/31/2019 R60.0 Localized edema Consuelo Mann N.P. 03/31/2019 E83.42 Hypomagnesemia Consuelo Mann N.P. 03/31/2019 R97.20 Elevated prostate specific antigen [PSA] Consuelo Mann N.P. 03/31/2019 M54.6 Pain in thoracic spine Consuelo Mann N.P. 03/31/2019 I87.2 Venous insufficiency (chronic) (peripheral) Consuelo Mann N.P. 03/31/2019 H10.403 Unspecified chronic conjunctivitis, bilateral Consuelo Mann N.P. 03/31/2019 H91.8x3 Other specified hearing loss, bilateral Consuelo Mann N.P. 03/31/2019 L20.9 Atopic dermatitis, unspecified Consuelo Mann N.P. 03/31/2019 F17.210 Nicotine dependence, cigarettes, Consuelo Mann N.P. uncomplicated 03/31/2019 J30.9 Allergic rhinitis, unspecified Consuelo Mann N.P. 03/31/2019 J18.9 Pneumonia, unspecified organism Consuelo Mann N.P. 03/31/2019 H92.03 Otalgia, bilateral Consuelo Mann N.P. 03/31/2019 H10.022 Other mucopurulent conjunctivitis, left eye Consuelo Mann N.P. 03/31/2019 H10.45 Other chronic allergic conjunctivitis Consuelo Mann N.P. 03/31/2019 B37.0 Candidal stomatitis Consuelo Mann N.P. 03/31/2019 S22.000A Wedge compression fracture of unspecified Consuelo Mann N.PLuis thoracic vertebra, 03/31/2019 L89.312 Pressure ulcer of right buttock, stage 2 Consuelo Mann N.P. 03/31/2019 M54.17 Radiculopathy, lumbosacral region Consuelo Mann N.P. 03/31/2019 M54.31 Sciatica, right side Consuelo Mann N.P. 03/31/2019 M54.41 Lumbago with sciatica, right side Consuelo Mann, N.P. 03/31/2019 R53.83 Other fatigue Consuelo Mann N.P. 03/31/2019 I71.4 Abdominal aortic aneurysm, without rupture Consuelo Mann N.P. 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 03/31/2019 Z68.23 Body mass index (BMI) 23.0-23.9, adult Consuelo Mann N.PLuis 03/17/2019 I10 Essential (primary) hypertension Consuelo Mann N.P. 03/17/2019 E78.2 Mixed hyperlipidemia Consuelo Mann N.P. 03/17/2019 J44.9 Chronic obstructive pulmonary disease, Consuelo Mann N.P. unspecified 03/17/2019 I25.10 Atherosclerotic heart disease of [place] Consuelo Mann N.PLuis coronary artery with 03/17/2019 [...] N.P. 03/17/2019 R60.0 Localized edema Consuelo Mann N.PLuis 03/17/2019 E83.42 Hypomagnesemia Consuelo Mann N.P. 03/17/2019 R97.20 Elevated prostate specific antigen [PSA] Consuelo Mann, N.P. 03/17/2019 M54.6 Pain in thoracic spine Consuelo Mann N.P. 03/17/2019 I87.2 Venous insufficiency (chronic) (peripheral) Consuelo Mann, N.P. 03/17/2019 H10.403 Unspecified chronic conjunctivitis, bilateral Consuelo Mann, N.P. 03/17/2019 H91.8x3 Other specified hearing loss, bilateral Consuelo Mann, N.P. 03/17/2019 L20.9 Atopic dermatitis, unspecified Consuelo Mann, N.P. 03/17/2019 F17.210 Nicotine dependence, cigarettes, Consuelo Mann N.P. uncomplicated 03/17/2019 J30.9 Allergic rhinitis, unspecified Consuelo Mann, N.P. 03/17/2019 J18.9 Pneumonia, unspecified organism Consuelo Mann, N.P. 03/17/2019 H92.03 Otalgia, bilateral Consuelo Mann, N.P. 03/17/2019 H10.022 Other mucopurulent conjunctivitis, left eye Consuelo Mann N.P. 03/17/2019 H10.45 Other chronic allergic conjunctivitis Consuelo Mann, N.P. 03/17/2019 B37.0 Candidal stomatitis Consuelo Mann, N.P. 03/17/2019 S22.000A Wedge compression fracture of unspecified Conseulo Mann , N.P. thoracic vertebra, 03/17/2019 L89.312 Pressure ulcer of right buttock, stage 2 Consuelo Mann N.P. 03/17/2019 M54.17 Radiculopathy, lumbosacral region Consuelo Mann, N.P. 03/17/2019 M54.31 Sciatica, right side Consuelo Mann, N.P. 03/17/2019 M54.41 Lumbago with sciatica, right side Consuelo Mann, N.P. 03/17/2019 R53.83 Other fatigue Consuelo Mann, N.P. 03/17/2019 J02.9 Acute pharyngitis, unspecified Consuelo Mann, N.P. 03/17/2019 I71.4 Abdominal aortic aneurysm, without rupture Consuelo Mann N.P. 03/17/2019 Z68.23 Body mass index (BMI) 23.0-23.9, adult Consuelo Mann N.P. 03/10/2019 I10 Essential (primary) hypertension Consuelo Mann N.P. 03/10/2019 E78.2 Mixed hyperlipidemia Consuelo Mann N.P. 03/10/2019 J44.9 Chronic obstructive pulmonary disease, Consuelo Mann N.P. unspecified 03/10/2019 I25.10 Atherosclerotic heart disease of [place] Romeo Richards.Deborah coronary artery with 03/10/2019 E55.9 Vitamin D deficiency, unspecified Consuelo Mann N.P. 03/10/2019 N40.0 Benign prostatic hyperplasia without lower Consuelo Mann N.PLuis urinary tract sym 03/10/2019 K21.0 Gastro-esophageal reflux disease with Romeo Richards.PLuis esophagitis 03/10/2019 Z68.23 Body mass index (BMI) 23.0-23.9, adult Consuelo Mann N.P. 03/10/2019 J30.2 Other seasonal allergic rhinitis Consuelo Mann N.P. 03/10/2019 M15.9 Polyosteoarthritis, unspecified Consuelo Mann N.P. 03/10/2019 M54.5 Low back pain Consuelo Mann N.P. 03/10/2019 R06.02 Shortness of breath Consuelo Mann N.P. 03/10/2019 R60.0 Localized edema Consuelo Mann N.P. 03/10/2019 E83.42 Hypomagnesemia Consuelo Mann N.P. 03/10/2019 R97.20 Elevated prostate specific antigen [PSA] Consuelo Mann N.P. 03/10/2019 M54.6 Pain in thoracic spine Consuelo Mann N.P. 03/10/2019 I87.2 Venous insufficiency (chronic) (peripheral) Consuelo Mann N.P. 03/10/2019 H10.403 Unspecified chronic conjunctivitis, bilateral Consuelo Mann N.P. 03/10/2019 H91.8x3 Other specified hearing loss, bilateral Consuelo Mann N.P. 03/10/2019 L20.9 Atopic dermatitis, unspecified Consuelo Mann N.P. 03/10/2019 F17.210 Nicotine dependence, cigarettes, Consuelo Mann N.P. uncomplicated 03/10/2019 J30.9 Allergic rhinitis, unspecified Consuelo Mann N.P. 03/10/2019 J18.9 Pneumonia, unspecified organism Consuelo Mann N.P. 03/10/2019 H92.03 Otalgia, bilateral Consuelo Mann, N.P. 03/10/2019 H10.022 Other mucopurulent conjunctivitis, left eye Consuelo Mann N.P. 03/10/2019 H10.45 Other chronic allergic conjunctivitis Consuelo Mann N.P. 03/10/2019 B37.0 Candidal stomatitis Consuelo Mann N.P. 03/10/2019 S22.000A Wedge compression fracture of unspecified Consuelo Mann N.PLuis thoracic vertebra, 03/10/2019 L89.312 Pressure ulcer of right buttock, stage 2 Consuelo Mann N.P. 03/10/2019 M54.17 Radiculopathy, lumbosacral region Consuelo Mann N.P. 03/10/2019 M54.31 Sciatica, right side Consuelo Mann N.P. 03/10/2019 M54.41 Lumbago with sciatica, right side Consuelo Mnan N.P. 03/10/2019 R53.83 Other fatigue Consuelo Mann N.P. 03/10/2019 Z00.01 Encounter for general adult medical Romeo Richards.Deborah examination with abnorma 03/10/2019 J02.9 Acute pharyngitis, unspecified Consuelo Mann N.P. 03/10/2019 I71.4 Abdominal aortic aneurysm, without rupture Consuelo Mann N.P. 03/07/2019 I10 Essential (primary) hypertension Consuelo Mann N.PLuis 03/07/2019 E78.2 Mixed hyperlipidemia Consuelo Mann N.P. 03/07/2019 J44.9 Chronic obstructive pulmonary disease, Consuelo Mann N.P. unspecified 03/07/2019 I25.10 Atherosclerotic heart disease of [place] Consuelo Mann N.Deborah coronary artery with 03/07/2019 E55.9 Vitamin D deficiency, unspecified Consuelo Mann N.P. 03/07/2019 N40.0 Benign prostatic hyperplasia without lower Consuelo Mann N.Deborah urinary tract sym 03/07/2019 K21.0 Gastro-esophageal reflux disease with Consuelo Mann N.PLuis esophagitis 03/07/2019 J30.2 Other seasonal allergic rhinitis Consuelo Mann N.P. 03/07/2019 M15.9 Polyosteoarthritis, unspecified Consuelo Mann N.P. 03/07/2019 M54.5 Low back pain Consuelo Mann N.P. 03/07/2019 R06.02 Shortness of breath Consuelo Mann N.P. 03/07/2019 R60.0 Localized edema Consuelo Mann N.P. 03/07/2019 E83.42 Hypomagnesemia Consuelo Mann N.P. 03/07/2019 R97.20 Elevated prostate specific antigen [PSA] Consuelo Mann N.P. 03/07/2019 M54.6 Pain in thoracic spine Consuelo Mann N.P. 03/07/2019 I87.2 Venous insufficiency (chronic) (peripheral) Consuelo Mann N.P. 03/07/2019 H10.403 Unspecified chronic conjunctivitis, bilateral Consuelo Mann N.P. 03/07/2019 H91.8x3 Other specified hearing loss, bilateral Consuelo Mnan N.P. 03/07/2019 L20.9 Atopic dermatitis, unspecified Consuelo Mann N.P. 03/07/2019 F17.210 Nicotine dependence, cigarettes, Consuelo Mann N.P. uncomplicated 03/07/2019 J30.9 Allergic rhinitis, unspecified Consuelo Mann N.P. 03/07/2019 J18.9 Pneumonia, unspecified organism Consuelo Mann N.P. 03/07/2019 H92.03 Otalgia, bilateral Consuelo Mann N.P. 03/07/2019 H10.022 Other mucopurulent conjunctivitis, left eye Consuelo Mann N.P. 03/07/2019 H10.45 Other chronic allergic conjunctivitis Consuelo Mann N.P. 03/07/2019 B37.0 Candidal stomatitis Consuelo Mann N.P. 03/07/2019 S22.000A Wedge compression fracture of unspecified Consuelo Mann N.PLuis thoracic vertebra, 03/07/2019 L89.312 Pressure ulcer of right buttock, stage 2 Consuelo Mann N.P. 03/07/2019 M54.17 Radiculopathy, lumbosacral region Consuelo Mann N.P. 03/07/2019 M54.31 Sciatica, right side Consuelo Mann N.P. 03/07/2019 M54.41 Lumbago with sciatica, right side Consuelo Mann N.P. 02/07/2019 I10 Essential (primary) hypertension Romeo Richards.P. 02/07/2019 E78.2 Mixed hyperlipidemia Consuelo Mann N.P. 02/07/2019 J44.9 Chronic obstructive pulmonary disease, Consuelo Mann N.P. unspecified 02/07/2019 I25.10 Atherosclerotic heart disease of [place] Romeo Richards.PLuis coronary artery with 02/07/2019 E55.9 Vitamin D deficiency, unspecified Consuelo Mann N.P. 02/07/2019 N40.0 Benign prostatic hyperplasia without lower Consuelo Mann N.PLuis urinary tract sym 02/07/2019 K21.0 Gastro-esophageal reflux disease with Consuelo Mann N.PLuis esophagitis 02/07/2019 J30.2 Other seasonal allergic rhinitis Consuelo Mann N.P. 02/07/2019 M15.9 Polyosteoarthritis, unspecified Consuelo Mann N.P. 02/07/2019 M54.5 Low back pain Consuelo Mann N.P. 02/07/2019 R06.02 Shortness of breath Consuelo Mann N.P. 02/07/2019 R60.0 Localized edema Consuelo Mann N.P. 02/07/2019 E83.42 Hypomagnesemia Consuelo Mann N.P. 02/07/2019 R97.20 Elevated prostate specific antigen [PSA] Consuelo Mann N.P. 02/07/2019 M54.6 Pain in thoracic spine Consuelo Mann N.P. 02/07/2019 I87.2 Venous insufficiency (chronic) (peripheral) oCnsuelo Mann N.P. 02/07/2019 H10.403 Unspecified chronic conjunctivitis, bilateral Consuelo Mann N.P. 02/07/2019 H91.8x3 Other specified hearing loss, bilateral Consuelo Mann, N.P. 02/07/2019 L20.9 Atopic dermatitis, unspecified Consuelo Mann N.P. 02/07/2019 F17.210 Nicotine dependence, cigarettes, Consuelo Mann N.P. uncomplicated 02/07/2019 J30.9 Allergic rhinitis, unspecified Consuelo Mann N.P. 02/07/2019 J18.9 Pneumonia, unspecified organism Consuelo Mann N.P. 02/07/2019 H92.03 Otalgia, bilateral Consuelo Mann N.P. 02/07/2019 H10.022 Other mucopurulent conjunctivitis, left eye Romeo Richards.P. 02/07/2019 H10.45 Other chronic allergic conjunctivitis Romeo Richards.Jagdish. 02/07/2019 B37.0 Candidal stomatitis Romeo Richards.P. 02/07/2019 S22.000A Wedge compression fracture of unspecified Consuelo Mann N.P. thoracic vertebra, Plan of Treatment Future Appointment(s):07/07/2019 1:00 pm - Consuelo Mann N.P. 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 THANK YOU. [phone] [place] [address] [phone] Zechariah Montes MD Closed [address] [place] [address] [phone]
--- OUTSIDE RECORDS SUMMARY | 2019-08-19 18:30 | XMS REPORT | Continuity of Care Document ---
:1940 External Reference #:[id number] Author Name Consuelo Mann N.P. Address [address] [facility] [address] [place] [address] Care Team Providers Name Role Phone Gal Stover MD - Family Medicine Care Team Information Congressional Representative [phone] Problems Active Problems Provider Date Benign essential [...] Provider Lorazepam 1/2-1 tab by 28tabs J44.9 Ck, timur 06/25/2019 0.5mg Tablets mouth qid prn MNelly Smith SOB/Anxiety Ipratropium one inhalation 180ml Ck, timur 06/23/2019 [place]/Albuterol treatment every 4 M., MLuisDLuis Sulfate hour 0.5-2.5(3)mg/3ML Solution Prednisone 2 tab by mouth 20tabs J18.9 Ck, timur 06/20/2019 20mg Tablets daily 4 M., M.D. days,30x3d,20x2d, 10x7d Hydrocodone-Acetamino 1 tab by mouth 60tabs J18.9 Ck, timur 06/20/2019 phen three times a day M. MLuisDLuis 7.5-325mg Tablets as needed Fluconazole 1 tab by mouth 2tabs J18.9 Ck, timur 06/20/2019 150mg today and january Nelly Gutiérrez Tablets repeat iLAST Day Of Abx Erythromycin apply thin layer [facility] 5mg/GM on lesion under l Nelly Gutiérrez Ointment eye 4x daily x 2 weeks Oxygen Generator for continuous J44.9 CkGal hercules 05/21/2019 oxygen titirate Nelly Gutiérrez up to 4L to maintain o2 sat between 88-96% Nicoderm CQ Uad 28units F17.293 Gal Stover 05/21/2019 7mg/24HR Nelly Gutiérrez Patches 24HR Aspirin 81 Low Dose 1 by mouth every 90units I10 Gal Stover 03/10/2019 morning M., M.D. 81mg Chewtabs Bacitracin Zinc apply to wound on 28.350gm L89.312 [facility] 03/07/2019 buttocks bid x 14 M., M.D. 500Unit/GM Ointment days. after washing with soap and water and pad dry. Combivent Respimat 1 puff twice a 12gm J44.9 [facility] 11/21/2018 day M., M.D. 20-100mcg/Act Aerosol Prednisolone Acetate 1 drops both eyes 10ml H10.45 [facility] 08/06/2018 1% twice a day as M., MLuisD. Suspension needed Nebulizer use as directed 1units J44.9 [facility] 01/21/2018 Device M. MLuisD. Nebulizer use with 2units J44.9 [facility] 01/21/2018 Kit/Tubing/Mouthpiece nebulizer every 4 M., M.D. hours as needed Kit Betamethasone apply to affected 45gm L20.9 [facility] 12/05/2017 Dipropionate area ( Face) M., MLuisDLuis 0.05% three times a day Cream as needed Simvastatin 1 by mouth every 90tabs E78.2 [facility] 03/27/2017 40mg night M., M.D. Tablets Metoprolol Tartrate 1 tab by mouth 90tabs I10 [facility] 11/16/2016 every day M., M.D. 100mg Tablets Losartan tab one by mouth 90tabs I10 [facility] 03/31/2014 Potassium/Hydrochloro every in the M., M.D. thiazide morning 100-25mg Tablets R60.0 I87.2 Omeprazole 1 by mouth every 90caps K21.0 [facility] G[facility], 01/16/[address] day M.D. K30 History Medications Azithromycin 1 tab by mouth 10tabs J18.9 [facility] G[facility], 06/20/2019 - 500mg every day x 10 [...] N.PLuis 06/23/2019 Injection Solu-Medrol Up To 40MG Consuelo Mann N.PLuis 06/20/2019 Injection Rocephin 250 Consuelo Mann N.PLuis [...] CPT Code Status Date Vaccine Lot # [id number] Given 07/11/2019 Flu Virus Vaccine, Quadrivalent, Slit Virus, Im [id number] Use U-Flu Given 07/02/2018 Influenza,Unspecified Q2038 Given 07/11/2016 Flu Vaccine 3+Yrs Old(Fluzone) 45717 Given 12/02/2015 Zoster Shingles Vaccine For Injection Q2038 Given 08/19/2015 Flu Vaccine 3+Yrs Old(Fluzone) 23529 Given 08/19/2015 Pneumovax [id number] 97635 Given 08/19/2015 Flu Vaccine [id number] 46770 Given 06/27/2014 Flu Vaccine Q2038 Given 07/31/2013 Flu Vaccine 3+Yrs Old(Fluzone) [id number] Q2038 Given 07/04/2012 Flu Vaccine 3+Yrs Old(Fluzone) [id number] 32663 Given 09/16/2009 Admin Of Influenza [id number] 98239 Given 08/08/2006 Flu Vaccine 77913 Given 07/31/2003 Pneumovax [id number] Vital Signs Date Vital Result Comment 07/11/2019 1:05pm BP Systolic 122 mmHg BP Diastolic 69 mmHg Height 68 inches 5'8" Weight 151.00 lb BMI (Body Mass Index) 23.0 kg/m2 Heart Rate 109 /min Respiratory Rate 18 /min 06/25/2019 1:02pm BP Systolic 145 mmHg BP Diastolic 60 mmHg Weight 153.00 lb Heart Rate 83 /min Respiratory Rate 16 /min Results Test Acquired Date Facility Test Result H/L Range Note Laboratory test 06/20/2019 [facility] TSH,Ultra 3.660 mIU/L (0.360- 4.1 finding [address] [facility] sensitive 70) (607)- - @ Free Thyroxine @ 1.34 ng/dL (0.76-1.46) CBC With Diff 06/20/2019 [facility] WBC 15.0 10*3/uL High (4.1-11.0) [address] (607)- - RBC 4.02 10*6/uL Low (4.60-6.10) HGB 11.8 g/dL Low (13.5-18.0) HCT 36.8 % Low (41.0-53.0) MCV 91.4 fL (80.0-95.0) MCH 29.3 pg (27.0-32.0) MCHC 32.1 g/dL (32.0-36.0) RDW 16.3 % High (10.5-14.5) PLT 500 10*3/uL High (150-450) MPV 7.5 fL (7.1-10.7) Neut % 82.0 % High (35.0-75.0) Band % 1.0 % (0.0-11.0) Lymph % 3.0 % Low (16.0-52.0) Sullivan % 14.0 % High (0.0-8.0) Neut # 12.3 10*3/uL High (1.8-7.7) Band # 0.2 10*3/uL Lymph # 0.5 10*3/uL Low (1.2-4.8) Sullivan # 2.1 10*3/uL High (0.0-0.8) Aniso 1+ Poik 1+ Poly 1+ Large PLT 1+ Diff Comment SLIDE REVIEWED B <SEE NOTE> 1 Lipid 06/20/2019 [facility] Cholesterol @ 125 mg/dL (0-200) [address] (607)- - Triglyceride @ 90 mg/dL (30-200) HDL Cholesterol @ 36 mg/dL Low (>40) 2 Chol/HDL Ratio 3.5 RATIO 3 LDL Chol (Calc) 71 mg/dL (<130) 4 CMP 06/20/2019 [facility] Sodium 132 mmol/L Low (136-145) [address] (607)- - Potassium 4.9 mmol/L (3.6-5.2) [...] GFR Interpretation <SEE NOTE> 5 Laboratory 05/15/2019 [facility] Surgical SEE RESULT 6 test finding Pathology BELOW Order Laboratory 05/14/2019 [facility] SEE RESULT 7 test finding Pathology BELOW Order Laboratory 05/13/2019 [place] Occult POSITIVE Abnormal Negative 8, 9 test finding Blood,Stool Ua RFX Micro & 05/13/2019 [place] Urine Color YELLOW Yellow Culture II Urine Clarity CLEAR Clear Urine Glucose - Dipstick NEGATIVE mg/dL Negative Urine Bilirubin - Dipstick NEGATIVE Negative Urine Ketone NEGATIVE mg/dL Negative Urine Specific Alpine 1.010 Normal 1.010-1.030 Urine Blood NEGATIVE Negative Urine PH 6.5 Normal 6.5-7.5 Urine Protein - Dipstick NEGATIVE mg/dL Negative Urine Urobilinogen - Dipstick 0.2 E.U./dL Normal 0.2-1.0 Urine Nitrite - Dipstick NEGATIVE Negative Urine Leuk Esterase NEGATIVE Negative Source: URINE, CLEAN CAT <SEE NOTE> 10 CBS W/Automated Diff 05/13/2019 [place] White Blood Count 12.1 K/uL High 3.4-10.5 [...] 33.0-73.0 Lymph % 5.6 % Low 20.0-42.0 Sullivan % 4.6 % Normal 0.0-10.0 Eo% 0.6 % Normal 0.0-6.6 Bas% 0.2 % Normal 0.0-1.1 Immature Grans 1.1 % Normal 0.0-5.0 NRBC % 0.0 /100WBC < 10/ 100 WBC Neut# 10.68 K/uL High 1.8-7.0 Lymph # 0.68 K/uL Low 1.0-4.0 Sullivan # 0.56 K/uL Normal 0.0-0.8 Eos # 0.07 K/uL Normal 0.0-0.5 Baso # 0.02 K/uL Normal 0.0-0.1 Immature Grans Absolute 0.13 K/uL NRBC # 0.00 K/uL Lactic Acid 05/13/2019 [place] Lactic Acid 2.8 mmol/L Critical high 0.4- 1.9 Lab Reflex >2.0 for Sepsis? Y Comprehensive Metabolic Panel 05/13/2019 [place] Glucose 105 mg/dL Normal 74-106 BUN 18 [...] U/L Normal 45-117 Laboratory test finding 05/13/2019 [place] Lipase 224 U/L Normal 56-289 NT-proBNP 2852.0 pg/mL High <450 Laboratory test 05/12/2019 [place] Occult POSITIVE Abnormal Negative 12 , 13 finding Blood,Stool Laboratory test 05/11/2019 [place] Occult NEGATIVE Negative 14, 15 finding Blood,Stool CBC 05/01/2019 [place] White Blood 14.4 K/uL High 3.4-10.5 16 [...] 10/ 100 WBC Basic Metabolic Panel 05/01/2019 [place] Glucose 119 mg/dL High 74-106 BUN 36 [...] mg/dL Normal 8.5-10.1 Basic Metabolic Panel 04/29/2019 [place] Glucose 130 mg/dL High 74-106 18 BUN [...] mg/dL Normal 8.5-10.1 Basic Metabolic Panel 04/28/2019 [place] Glucose 115 mg/dL High 74-106 BUN 31 [...] mg/dL Low 8.5-10.1 CBS W/Automated Diff 04/27/2019 [place] White Blood Count 13.8 K/uL High 3.4-10.5 [...] 33.0-73.0 Lymph % 3.3 % Low 20.0-42.0 Sullivan % 5.7 % Normal 0.0-10.0 Eo% 0.6 % Normal 0.0-6.6 Bas% 0.2 % Normal 0.0-1.1 Immature Grans 1.9 % Normal 0.0-5.0 NRBC % 0.3 /100WBC < 10/ 100 WBC Neut# 12.21 K/uL High 1.8-7.0 Lymph # 0.45 K/uL Low 1.0-4.0 Sullivan # 0.79 K/uL Normal 0.0-0.8 Eos # 0.08 K/uL Normal 0.0-0.5 Baso # 0.03 K/uL Normal 0.0-0.1 Immature Grans Absolute 0.26 K/uL NRBC # 0.04 K/uL Basic Metabolic Panel 04/27/2019 [place] Glucose 129 mg/dL High 74-106 BUN 27 [...] mg/dL Normal 8.5-10.1 Basic Metabolic Panel 04/26/2019 [place] Glucose 124 mg/dL High 74-106 BUN 26 [...] 8.3 mg/dL Low 8.5-10.1 Lactic Acid 04/25/2019 [place] Lactic Acid 1.4 mmol/L Normal 0.4-1.9 Lab Reflex >2.0 for Sepsis? N Basic Metabolic Panel 04/25/2019 [place] Glucose 133 mg/dL High 74-106 BUN 18 [...] mg/dL Low 8.5-10.1 CBS W/Automated Diff 04/24/2019 [place] White Blood 10.4 K/uL Normal 3.4 -10.5 [...] 33.0-73.0 Lymph % 3.5 % Low 20.0-42.0 Sullivan % 1.4 % Normal 0.0-10.0 Eo% 0.0 % Normal 0.0-6.6 Bas% 0.0 % Normal 0.0-1.1 Immature Grans 0.7 % Normal 0.0-5.0 NRBC % 0.0 /100WBC < 10/ 100 WBC Neut# 9.79 K/uL High 1.8-7.0 Lymph # 0.36 K/uL Low 1.0-4.0 Sullivan # 0.14 K/uL Normal 0.0-0.8 Eos # 0.00 K/uL Normal 0.0-0.5 Baso # 0.00 K/uL Normal 0.0-0.1 Immature Grans Absolute 0.07 K/uL NRBC # 0.00 K/uL Laboratory test 04/24/2019 [place] Lactic Acid 1.8 mmol/L Normal 0.4- 1.9 finding Lactic Acid 04/24/2019 [place] Lactic Acid 2.2 mmol/L Critical high 0.4- 1.9 Lab Reflex >2.0 for Sepsis? Y Lactic Acid 04/23/2019 [place] Lactic Acid 2.2 mmol/L Critical high 0.4- 1.9 Lab Reflex >2.0 for Sepsis? Y Blood Culture 04/23/2019 [place] Blood Culture Aerobic NO GROWTH: FINAL < SEE 24 NOTE> Blood Culture Anaerobic NO GROWTH: FINAL <SEE NOTE> 25 Laboratory test 04/23/2019 [place] D-Dimer, 3.18 ug/mL 26, 27 finding Quantitative Lactic Acid 04/23/2019 [place] Lactic Acid 3.6 mmol/L Critical 0.4- high 1.9 Lab Reflex >2.0 for Sepsis? Y Aot Request 04/23/2019 [place] Aot Request Test(s) added 28 Tests to be added: crp Blood Culture 04/23/2019 [place] Blood Culture NO GROWTH: FINAL Aerobic <SEE NOTE> Blood Culture Anaerobic NO GROWTH: FINAL <SEE NOTE> 31 Laboratory test 03/10/2019 [facility] Rheumatoid Factor <15 IU/mL (0- 15) finding [address] @ (607)- - C Reactive Protein @ 0.5 mg/dL (0.0-0.5) Esr 8 mm/h (0-20) Uric Acid 6.8 mg/dL (3.5-7.2) TSH,Ultrasensitive @ 1.940 mIU/L (0.360-4.170) PSA Free And 03/10/2019 [facility] PSA Total 4.6 ng/mL High (0.0-4.0) Total [address] (606)- - PSA Free 0.9 ng/mL PSA % Free 20 % 32 Laboratory test 03/10/2019 [facility] 25 Hydroxy Vit D 20 ng/mL Low (31 -100) 33 finding [address] @ (607)- - Lipid Extended 03/10/2019 [facility] Appearance CLEAR (Clear) Panel [address] (607)- - Cholesterol @ 170 mg/dL (0-200) Triglyceride @ 137 mg/dL (30-200) HDL Cholesterol @ 71 mg/dL (>40) 34 Chol/HDL Ratio 2.4 RATIO 35 Direct LDL @ 85 mg/dL (<130) 36 VLDL (Calc) 14 mg/dL (0-30) Laboratory test 03/10/2019 [facility] Magnesium 1.7 mg/dL (1.7-2.4) finding [address] (606)- - CMP 03/10/2019 [facility] Sodium 141 mmol/L (136-145) [address] (741)- - Potassium 3.3 mmol/L Low (3.6-5.2) Chloride [...] NOTE> 37 CBC With Diff 03/10/2019 [facility] WBC 14.5 10*3/uL High (4.1-11.0) [address] (607)- - RBC 4.61 10*6/uL (4.60-6.10) HGB 14.8 g/dL (13.5-18.0) HCT 44.5 % (41.0-53.0) MCV 96.7 fL High (80.0-95.0) MCH 32.1 pg High (27.0-32.0) MCHC 33.2 g/dL (32.0-36.0) RDW 14.2 % (10.5-14.5) PLT 301 10*3/uL (150-450) MPV 7.1 fL (7.1-10.7) Neut % 68.0 % (35.0-75.0) Lymph % 21.1 % (16.0-52.0) Sullivan % 9.9 % High (0.0-8.0) Eos % 0.5 % (0.0-5.0) Baso % 0.5 % (0.0-4.0) Neut # 9.9 10*3/uL High (1.8-7.7) Lymph # 3.1 10*3/uL (1.2-4.8) Sullivan # 1.4 10*3/uL High (0.0-0.8) Eos # 0.1 10*3/uL (0.0-0.5) Baso # 0.1 10*3/uL (0.0-0.2) 1 SLIDE REVIEWED BY GRAIN I FARMWORKER 10457 10.7.19. 2 PER NCEP ATP III GUIDELINES: [...] [address]: Una Swann MD Acct: [id number] Unit: [id number] AGE: 79 Location: [place] [address] Re05/13/19 SEX: M Status: ADM IN SPEC: [id number] KRISTI: 05/15/19 [facility] DR: Jesus Shi DO REQ: [id number] RECD: 05/15/19 STATUS: ESTEBAN VALLADARES DR: Gal [...] CONTINUED ON NEXT PAGE DEPARTMENT OF PATHOLOGY, [address] [place] [address] Abraham Cat M.D. Director [facility] # [id number] RUN DATE: 05/16/19 [facility] LAB LIVE PAGE 2 Patient: BLADE SANCHEZ [id number] (Continued) GROSS DESCRIPTION (Continued) Signed by and Reported on: Skyla Parr MD 05/16/19 1450 END OF REPORT DEPARTMENT OF PATHOLOGY, [address] [place] [address] Abraham Cat M.D. Director [facility] # [id number] 7 SEE RESULT BELOW Name: BLADE SANCHEZ : [address]: Una Swann MD Acct: [id number] Unit: [id number] AGE: 79 Location: [place] [address]- Re05/13/19 SEX: M Status: ADM IN SPEC: [id number] KRISTI: 05/14/19- SUBM DR: Magnolia Mon MD REQ: [id number] RECD: 05/14/19 STATUS: ESTEBAN VALLADARES DR: Dung Mann [employer] _ ORDERED: LEVEL 4 FINAL DIAGNOSIS Stomach, [...] 1325 END OF REPORT DEPARTMENT OF PATHOLOGY, [address] [place] [address] Abraham Cat M.D. Director [facility] # [id number] 8 GI BLEED 9 Method: Greer Valmeyer Hemoccult Card 10 URINE, CLEAN CATCH 11 [...] Hemoccult Card 14 D64.9 15 Method: Greer Valmeyer Hemoccult Card 16 APPROVED 17 Note: Persistent [...] GROWTH: FINAL REPORT 26 REF BY CONSUELO WHITE,CP/DIFFICULTY BREATHING. 27 <=0.49 ug/mL - Low likelihood of DIC, DVT or Pulmonary Embolism >0.49 ug/mL - Additional testing should be done to rule out DIC, DVT, or Pulmonary embolism as clinically indicated. ([facility] has established a 97.89% negative predictive value [...] DIAGNOSIS OF CANCER. (See: BRENDA 1998; 279: 7140-0277) METHOD USED TO ASSAY BOTH FREE PSA AND TOTAL PSA IS SIEMENS Mipagar LOCI CHEMILUMINESCENT IMMUNOASSAY (CALIBRATION TRACEABLE TO WHO [...] medication dosing. Procedures Date Code Description Status 06/25/2019 70455 Injection DX/Therapeutic/Prophy Completed 06/23/2019 74820 Injection DX/Therapeutic/Prophy Completed 06/20/2019 81134 Injection DX/Therapeutic/Prophy Completed 06/20/2019 41697 Nebulizer-Ippb Treatment Completed 03/10/2019 32149 EKG Completed 02/07/2019 16495 Spirometry Completed 02/07/2019 18965 Tympanometry Completed 10/10/2016 33345847 Colonoscopy Completed Medical Devices Description No Information Available Encounters Type Date Location Provider Dx Diagnosis Office Visit 07/11/2019 [facility] Consuelo Mann, I10 Essential ( primary) 1:00p N.P. hypertension E78.2 Mixed hyperlipidemia J44.9 Chronic obstructive pulmonary disease, unspecified I25.10 [facility] heart disease [place] coronary artery w/o ang pctrs E55.9 Vitamin [...] (BMI) 23.0-23.9, adult Office Visit 06/25/2019 1:00p [facility] Consuelo Mann, I10 Essential (primary) N.P. hypertension E78.2 Mixed hyperlipidemia J44.9 Chronic obstructive pulmonary disease, unspecified I25.10 Athscl heart disease of [place] coronary artery w/o ang pctrs E55.9 Vitamin [...] (BMI) 23.0-23.9, adult Office Visit 06/23/2019 1:00p [facility] Consuelo Mann, I10 Essential (primary) N.P. 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 hypertension E78.2 Mixed hyperlipidemia J44.9 Chronic obstructive pulmonary disease, unspecified I25.10 Athscl heart disease of [place] coronary artery w/o ang pctrs E55.9 Vitamin [...] (BMI) 23.0-23.9, adult Office Visit 05/26/2019 2:30p [facility] Consuelo Mann, I10 Essential (primary) N.P. hypertension E78.2 Mixed hyperlipidemia J44.9 Chronic obstructive pulmonary disease, unspecified I25.10 Athscl heart disease of [place] coronary artery w/o ang pctrs E55.9 Vitamin [...] (BMI) 23.0-23.9, adult Office Visit 05/21/2019 3:00p [facility] Consuelo Mann, I10 Essential (primary) N.P. hypertension E78.2 Mixed hyperlipidemia J44.9 Chronic obstructive pulmonary disease, unspecified I25.10 Athscl heart disease of [place] coronary artery w/o ang pctrs E55.9 Vitamin [...] (BMI) 23.0-23.9, adult Office Visit 04/23/2019 9:45a [facility] Consuelo Mann, I10 Essential (primary) N.P. hypertension E78.2 Mixed hyperlipidemia J44.9 Chronic obstructive pulmonary disease, unspecified I25.10 Athscl heart disease of [place] coronary artery w/o ang pctrs E55.9 Vitamin [...] (BMI) 23.0-23.9, adult Office Visit 03/31/2019 3:30p [facility] Consuelo Mann, I10 Essential (primary) N.P. 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 hypertension E78.2 Mixed hyperlipidemia J44.9 Chronic obstructive pulmonary disease, unspecified I25.10 Athscl heart disease of [place] coronary artery w/o ang pctrs E55.9 Vitamin [...] (BMI) 23.0-23.9, adult Office Visit 03/10/2019 10:45a [facility] Consuelo Mann, I10 Essential (primary) N.P. hypertension E78.2 Mixed hyperlipidemia J44.9 Chronic obstructive pulmonary disease, unspecified I25.10 Athscl heart disease of [place] coronary artery w/o ang pctrs E55.9 Vitamin [...] aneurysm, without rupture Office Visit 03/07/2019 3:00p [facility] Consuelo Mann, I10 Essential (primary) N.P. hypertension E78.2 Mixed hyperlipidemia J44.9 Chronic obstructive pulmonary disease, unspecified I25.10 Athscl heart disease of [place] coronary artery w/o ang pctrs E55.9 Vitamin [...] sciatica, right side Office Visit 02/07/2019 3:45p [facility] Consuelo Mann, I10 Essential (primary) N.P. hypertension E78.2 Mixed hyperlipidemia J44.9 Chronic obstructive pulmonary disease, unspecified I25.10 Athscl heart disease of [place] coronary artery w/o ang pctrs E55.9 Vitamin [...] vertebra, init Assessments Date Code Description Provider 07/11/2019 I10 Essential (primary) hypertension Consuelo Mann N.P. 07/11/2019 E78.2 Mixed hyperlipidemia Consuelo Mann, N.P. 07/11/2019 J44.9 Chronic obstructive pulmonary disease, Consuelo Mann N.P. 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 07/11/2019 N40.0 Benign prostatic hyperplasia without lower Consuelo Mann, N.P. urinary tract symptoms 07/11/2019 K21.0 Gastro-esophageal reflux disease with Consuelo Mann N.P. esophagitis 07/11/2019 J30.2 Other seasonal allergic rhinitis Consuelo Mann N.P. 07/11/2019 M15.9 Polyosteoarthritis, unspecified Consuelo Mann N.P. 07/11/2019 M54.5 Low back pain Consuelo Mann N.PLuis 07/11/2019 R06.02 Shortness of breath Consuelo Mann N.PLuis 07/11/2019 R60.0 Localized edema Consuelo Mann N.PLuis 07/11/2019 E83.42 Hypomagnesemia Consuelo Mann N.P. 07/11/2019 R97.20 Elevated prostate specific antigen [PSA] Consuelo Mann N.PLuis 07/11/2019 M54.6 Pain in thoracic spine Consuelo Mann N.P. 07/11/2019 I87.2 Venous insufficiency (chronic) (peripheral) Cosnuelo Mann N.PLuis 07/11/2019 H10.403 Unspecified chronic conjunctivitis, bilateral Consuelo Mann N.P. 07/11/2019 H91.8x3 Other specified hearing loss, bilateral Consuelo Mann N.P. 07/11/2019 L20.9 Atopic dermatitis, unspecified Consuelo Mann N.P. 07/11/2019 F17.210 Nicotine dependence, cigarettes, Consuelo Mann N.Deborah uncomplicated 07/11/2019 J30.9 Allergic rhinitis, unspecified Consuelo Mann N.P. 07/11/2019 J18.9 Pneumonia, unspecified organism Consuelo Mann N.P. 07/11/2019 H92.03 Otalgia, bilateral Consuelo Mann N.P. 07/11/2019 H10.022 Other mucopurulent conjunctivitis, left eye Consuelo Mann N.P. 07/11/2019 H10.45 Other chronic allergic conjunctivitis Consuelo Mann N.PLuis 07/11/2019 B37.0 Candidal stomatitis Consuelo Mann N.P. 07/11/2019 S22.000A Wedge compression fracture of unspecified Romeo Richarsd.Deborah thoracic vertebra, initial encounter for closed fracture 07/11/2019 L89.312 Pressure ulcer of right buttock, stage 2 Consuelo Mann N.P. 07/11/2019 M54.17 Radiculopathy, lumbosacral region Consuelo Mann, N.P. 07/11/2019 M54.31 Sciatica, right side Consuelo Mann [...] product, Consuelo Mann , N.P. with withdrawal 07/11/2019 Z23 Encounter for immunization Consuelo Mann N.P. 07/11/2019 Z68.23 Body mass index (BMI) 23.0-23.9, adult Consuelo Mann N.P. 06/25/2019 I10 Essential (primary) hypertension Consuelo Mann N.P. 06/25/2019 E78.2 Mixed hyperlipidemia Consuelo Mann N.P. 06/25/2019 J44.9 Chronic obstructive pulmonary disease, Consuelo Mann N.P. 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 06/25/2019 N40.0 Benign prostatic hyperplasia without lower Consuelo Mann, N.PLuis urinary tract symptoms 06/25/2019 K21.0 Gastro-esophageal [...] mucopurulent conjunctivitis, left eye Consuelo Mann N.P. 06/25/2019 H10.45 Other chronic allergic conjunctivitis [...] I71.4 Abdominal aortic aneurysm, without rupture Consuelo Mnan N.P. 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 06/23/2019 J18.9 Pneumonia, unspecified organism Consuelo Mann, N.P. 06/23/2019 H92.03 Otalgia, bilateral Consuelo Mann N.P. 06/23/2019 H10.022 Other mucopurulent conjunctivitis, left eye Consuelo Mann N.P. 06/23/2019 H10.45 Other chronic allergic conjunctivitis Consuelo Mann, N.P. 06/23/2019 B37.0 Candidal stomatitis Consuelo Mann, N.P. 06/23/2019 S22.000A Wedge compression fracture of unspecified Consuelo Mann N.PLuis thoracic vertebra, initial encounter for closed fracture 06/23/2019 L89.312 Pressure ulcer of right buttock, stage 2 Consuelo Mann N.P. 06/23/2019 M54.17 Radiculopathy, lumbosacral region Consuelo Mann N.P. 06/23/2019 M54.31 Sciatica, right side Consuelo Mann, N.P. 06/23/2019 M54.41 Lumbago with sciatica, right side Consuelo Mann, N.P. 06/23/2019 R53.83 Other fatigue Consuelo Mann, N.P. 06/23/2019 I71.4 Abdominal aortic aneurysm, without rupture Consuelo Mann N.P. 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 06/23/2019 I73.9 Peripheral vascular disease, unspecified Consuelo Mann N.P. 06/23/2019 R07.9 Chest pain, unspecified Consuelo Mann, N.P. 06/23/2019 F17.293 Nicotine dependence, other tobacco product, Consuelo Mann , N.P. with withdrawal 06/23/2019 Z68.23 Body mass index (BMI) 23.0-23.9, adult Consuelo Mann N.P. 06/20/2019 I10 Essential (primary) hypertension Consuelo Mann N.P. 06/20/2019 E78.2 Mixed hyperlipidemia Consuelo Mann N.P. 06/20/2019 J44.9 Chronic obstructive pulmonary disease, Consuelo Mann N.P. 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 06/20/2019 N40.0 Benign prostatic hyperplasia without lower Consuelo Mann N.PLuis urinary tract symptoms 06/20/2019 K21.0 Gastro-esophageal reflux disease with Consuelo Mann N.PLuis esophagitis 06/20/2019 J30.2 Other seasonal allergic rhinitis Consuelo Mann N.P. 06/20/2019 M15.9 Polyosteoarthritis, unspecified Consuelo Mann, N.P. 06/20/2019 M54.5 Low back pain Consuelo [...] Mann, N.P. 06/20/2019 R53.83 Other fatigue Consuelo Mann N.P. 06/20/2019 I71.4 Abdominal aortic aneurysm, without rupture Consuelo Mann N.P. 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 06/20/2019 I73.9 Peripheral vascular disease, unspecified Consuelo Mann N.P. 06/20/2019 R07.9 Chest pain, unspecified Consuelo Mann N.P. 06/20/2019 F17.293 Nicotine dependence, other tobacco product, Consuelo Mann , N.P. with withdrawal 06/20/2019 Z68.23 Body mass index (BMI) 23.0-23.9, adult Consuelo Mann N.P. 05/26/2019 I10 Essential (primary) hypertension Consuelo Mann N.P. 05/26/2019 E78.2 Mixed hyperlipidemia Consuelo Mann N.P. 05/26/2019 J44.9 Chronic obstructive pulmonary disease, Consuelo Mann N.P. 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 05/26/2019 R06.02 Shortness of breath Consuelo Mann, N.P. 05/26/2019 R60.0 Localized edema Consuelo Mann, N.P. 05/26/2019 E83.42 Hypomagnesemia Consuelo Mann, N.P. 05/26/2019 R97.20 Elevated prostate specific antigen [PSA] Consuelo Mann N.P. 05/26/2019 M54.6 Pain in thoracic spine Consuelo Mann N.P. 05/26/2019 I87.2 Venous insufficiency (chronic) (peripheral) Consuelo Mann, N.P. 05/26/2019 H10.403 Unspecified chronic conjunctivitis, bilateral Consuelo Mann, N.P. 05/26/2019 H91.8x3 Other specified hearing loss, bilateral Consuelo Mann N.P. 05/26/2019 L20.9 Atopic dermatitis, unspecified Consuelo Mann, N.P. 05/26/2019 F17.210 Nicotine dependence, cigarettes, Consuelo Mann N.P. uncomplicated 05/26/2019 J30.9 Allergic rhinitis, unspecified Consuelo Mann, N.P. 05/26/2019 J18.9 Pneumonia, unspecified organism Consuelo Mann N.P. 05/26/2019 H92.03 Otalgia, bilateral Consuelo Mann, N.P. 05/26/2019 H10.022 Other mucopurulent conjunctivitis, left [...] Mann N.P. 05/26/2019 R53.83 Other fatigue Consuelo Mann, [...] index (BMI) 23.0-23.9, adult Consuelo Mann, N.P. 05/21/2019 I10 Essential (primary) hypertension Consuelo Mann N.P. 05/21/2019 E78.2 Mixed hyperlipidemia Consuelo Mann N.P. 05/21/2019 J44.9 Chronic obstructive pulmonary disease, Consuelo Mann, N.P. 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 05/21/2019 N40.0 Benign prostatic hyperplasia without lower Consuelo Mann, N.P. urinary tract sym 05/21/2019 K21.0 Gastro-esophageal reflux disease with Consuelo Mann N.PLuis esophagitis 05/21/2019 J30.2 Other seasonal allergic rhinitis [...] N.P. 05/21/2019 F17.210 Nicotine dependence, cigarettes, Consuelo Mann, N.P. uncomplicated 05/21/2019 J30.9 Allergic rhinitis, unspecified Consuelo Mann, N.P. 05/21/2019 J18.9 Pneumonia, unspecified organism Consuelo Mann, N.P. 05/21/2019 H92.03 Otalgia, bilateral Consuelo Mann, N.P. 05/21/2019 H10.022 Other mucopurulent conjunctivitis, left eye Consuelo Mann , N.P. 05/21/2019 H10.45 Other chronic allergic conjunctivitis Consuelo Mann, N.P. 05/21/2019 B37.0 Candidal stomatitis Consuelo Mann, N.P. 05/21/2019 S22.000A Wedge compression fracture of unspecified Consuelo aMnn , N.PLuis thoracic vertebra, 05/21/2019 L89.312 Pressure ulcer of [...] product, Consuelo Mann , N.P. with withdrawal 05/21/2019 Z68.23 Body mass index (BMI) 23.0-23.9, adult Consuelo Mann N.P. 04/23/2019 I10 Essential (primary) hypertension Consuelo Mann N.P. 04/23/2019 E78.2 Mixed hyperlipidemia Consuelo Mann N.P. 04/23/2019 J44.9 Chronic obstructive pulmonary disease, Consuelo Mann N.P. unspecified 04/23/2019 I25.10 Atherosclerotic heart disease of [place] Consuelo Mann N.Deborah coronary artery with 04/23/2019 E55.9 Vitamin D deficiency, unspecified Consuelo Mann N.P. 04/23/2019 N40.0 Benign prostatic hyperplasia without lower Consuelo Mann N.PLuis urinary tract sym 04/23/2019 K21.0 Gastro-esophageal reflux disease with Consuelo Mann N.PLuis esophagitis 04/23/2019 J30.2 Other seasonal allergic rhinitis Consuelo Mann N.P. 04/23/2019 M15.9 Polyosteoarthritis, unspecified Consuelo Mann, N.P. 04/23/2019 M54.5 Low back pain Consuelo Mann N.P. 04/23/2019 R06.02 Shortness of breath Consuelo Mann N.P. 04/23/2019 R60.0 Localized edema Consuelo Mann N.P. 04/23/2019 E83.42 Hypomagnesemia Consuelo Mann, N.P. 04/23/2019 R97.20 Elevated prostate specific antigen [PSA] Consuelo Mann N.P. 04/23/2019 M54.6 Pain in thoracic spine Consuelo Mann, N.P. 04/23/2019 I87.2 Venous insufficiency (chronic) (peripheral) Consuelo Mann, N.P. 04/23/2019 H10.403 Unspecified chronic conjunctivitis, bilateral [...] mucopurulent conjunctivitis, left eye Consuelo Mann N.P. 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 04/23/2019 I73.9 Peripheral vascular disease, unspecified Consuelo Mann, N.P. 04/23/2019 R07.9 Chest pain, unspecified Consuelo Mann, N.P. 04/23/2019 Z68.23 Body mass index (BMI) 23.0-23.9, adult Consuelo Mann N.P. 03/31/2019 I10 Essential (primary) hypertension Consuelo Mann N.P. 03/31/2019 E78.2 Mixed hyperlipidemia Consuelo Mann N.P. 03/31/2019 J44.9 Chronic obstructive pulmonary disease, Consuelo Mann N.P. 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 03/31/2019 N40.0 Benign prostatic hyperplasia without lower Consuelo Mann N.PLuis urinary tract sym 03/31/2019 K21.0 Gastro-esophageal reflux disease with Consuelo Mann N.P. esophagitis 03/31/2019 J30.2 Other seasonal allergic rhinitis Consuelo Mann N.P. 03/31/2019 M15.9 Polyosteoarthritis, unspecified Consuelo Mann N.P. 03/31/2019 M54.5 Low back pain Conuselo Mann N.P. 03/31/2019 R06.02 Shortness of breath Consuelo Mann, N.P. 03/31/2019 R60.0 Localized edema Consuelo Mann, [...] uncomplicated 03/31/2019 J30.9 Allergic rhinitis, unspecified Consuelo Mann, N.P. 03/31/2019 J18.9 Pneumonia, unspecified organism Consuelo Mann, N.P. 03/31/2019 H92.03 Otalgia, bilateral Consuelo Mann, N.P. 03/31/2019 H10.022 Other mucopurulent conjunctivitis, left eye Consuelo Mann N.P. 03/31/2019 H10.45 Other chronic allergic conjunctivitis Consuelo Mann N.P. 03/31/2019 B37.0 Candidal stomatitis Consuelo Mann N.P. 03/31/2019 S22.000A Wedge compression fracture of unspecified Consuelo Mann , N.P. thoracic vertebra, 03/31/2019 L89.312 Pressure ulcer of right buttock, stage 2 Consuelo Mann, N.P. 03/31/2019 M54.17 Radiculopathy, lumbosacral region Consuelo Mann N.P. 03/31/2019 M54.31 Sciatica, right side Consuelo Mann, N.P. 03/31/2019 M54.41 Lumbago with sciatica, right side Consuelo Mann N.P. 03/31/2019 R53.83 Other fatigue Consuelo Mann N.P. 03/31/2019 I71.4 Abdominal aortic aneurysm, without rupture Consuelo Mann N.P. 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 03/31/2019 Z68.23 Body mass index (BMI) 23.0-23.9, adult Consuelo Mann N.P. 03/17/2019 I10 Essential (primary) hypertension Consuelo Mann N.P. 03/17/2019 E78.2 Mixed hyperlipidemia Consuelo Mann N.P. 03/17/2019 J44.9 Chronic obstructive pulmonary disease, Consuelo Mann, N.P. 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 03/17/2019 F17.210 Nicotine dependence, cigarettes, Consuelo Mnan N.P. uncomplicated 03/17/2019 J30.9 Allergic rhinitis, unspecified [...] N.P. 03/17/2019 M54.17 Radiculopathy, lumbosacral region Consuelo Mann N.P. 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 03/10/2019 N40.0 Benign prostatic hyperplasia without lower Consuelo Mann N.P. urinary tract sym 03/10/2019 K21.0 Gastro-esophageal reflux disease with Consuelo Mann N.P. esophagitis 03/10/2019 Z68.23 Body mass index (BMI) 23.0-23.9, adult Consuelo Mann N.P. 03/10/2019 J30.2 Other seasonal allergic rhinitis Consuelo Mann N.P. 03/10/2019 M15.9 Polyosteoarthritis, unspecified Consuelo Mann, N.P. 03/10/2019 M54.5 Low back pain Consuelo Mann N.P. 03/10/2019 R06.02 Shortness of breath Consuelo Mann N.P. 03/10/2019 R60.0 Localized edema Consuelo Mann, N.P. 03/10/2019 E83.42 Hypomagnesemia Consuelo Mann N.P. 03/10/2019 R97.20 Elevated prostate specific antigen [PSA] Consuelo Mann N.P. 03/10/2019 M54.6 Pain in thoracic spine Consuelo Mann N.P. 03/10/2019 I87.2 Venous insufficiency (chronic) (peripheral) Consuelo Mann N.P. 03/10/2019 H10.403 Unspecified chronic conjunctivitis, bilateral Consuelo Mann, N.P. 03/10/2019 H91.8x3 Other specified hearing loss, bilateral Consuelo Mann N.P. 03/10/2019 L20.9 Atopic dermatitis, unspecified Consuelo Mann N.P. 03/10/2019 F17.210 Nicotine dependence, cigarettes, Consuelo aMnn N.P. uncomplicated 03/10/2019 J30.9 Allergic rhinitis, unspecified Consuelo Mann N.P. 03/10/2019 J18.9 Pneumonia, unspecified organism Consuelo Mann N.P. 03/10/2019 H92.03 Otalgia, bilateral Consuelo Mann N.P. 03/10/2019 H10.022 Other mucopurulent conjunctivitis, left eye Consuelo Mann N.P. 03/10/2019 H10.45 Other chronic allergic conjunctivitis Consuelo Mann N.P. 03/10/2019 B37.0 Candidal stomatitis Consuelo Mann N.P. 03/10/2019 S22.000A Wedge compression fracture of unspecified Consuelo Mann N.PLuis thoracic vertebra, 03/10/2019 L89.312 Pressure ulcer of right buttock, stage 2 Consuelo Mann N.P. 03/10/2019 M54.17 Radiculopathy, lumbosacral region Consuelo Mann N.PLuis 03/10/2019 M54.31 Sciatica, right side Romeo Rihcards.PLuis 03/10/2019 M54.41 Lumbago with sciatica, right side Consuelo Mann N.PLuis 03/10/2019 R53.83 Other fatigue Consuelo Mann N.PLuis 03/10/2019 Z00.01 Encounter for general [...] unspecified 03/07/2019 I25.10 Atherosclerotic heart disease of [place] Romeo Richards.Deborah coronary artery with 03/07/2019 E55.9 Vitamin D deficiency, unspecified Consuelo Mann N.PLuis 03/07/2019 N40.0 Benign prostatic hyperplasia without lower Romeo Richards.Deborah urinary tract sym 03/07/2019 K21.0 Gastro-esophageal reflux disease with Consuelo Mann N.P. esophagitis 03/07/2019 J30.2 Other seasonal allergic rhinitis Consuelo Mann N.PLuis 03/07/2019 M15.9 Polyosteoarthritis, unspecified Consuelo Mann N.PLuis 03/07/2019 M54.5 Low back pain Consuelo Mann N.PLuis 03/07/2019 R06.02 Shortness of breath Consuelo Mann N.PLuis 03/07/2019 R60.0 Localized edema Consuelo Mann N.PLuis 03/07/2019 E83.42 Hypomagnesemia Consuelo Mann N.PLuis 03/07/2019 R97.20 Elevated prostate specific antigen [PSA] Consuelo Mann N.P. 03/07/2019 M54.6 Pain in thoracic spine Consuelo Mann N.PLuis 03/07/2019 I87.2 Venous insufficiency (chronic) (peripheral) Consuelo Mann N.PLuis 03/07/2019 H10.403 Unspecified chronic conjunctivitis, bilateral Consuelo Mann, N.P. 03/07/2019 H91.8x3 Other specified hearing loss, bilateral Consuelo Mann, N.P. 03/07/2019 L20.9 Atopic dermatitis, unspecified Consuelo Mann, N.P. 03/07/2019 F17.210 Nicotine dependence, cigarettes, Consuelo Mann N.P. uncomplicated 03/07/2019 J30.9 Allergic rhinitis, unspecified Consuelo Mann, N.P. 03/07/2019 J18.9 Pneumonia, unspecified organism Consuelo Mann, N.P. 03/07/2019 H92.03 Otalgia, bilateral Consuelo Mann, [...] Mann N.P. 02/07/2019 I10 Essential (primary) hypertension Consuelo Mann N.P. 02/07/2019 E78.2 Mixed hyperlipidemia Consuelo Mann, N.P. 02/07/2019 J44.9 Chronic obstructive pulmonary disease, Consuelo Mann, N.P. 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 02/07/2019 N40.0 Benign prostatic hyperplasia without lower Consuelo Mann N.P. 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 THANK YOU. [address] [place] [address] [phone] Zechariah Montes MD Closed [address] [place] [address] [phone]
--- OUTSIDE RECORDS SUMMARY | 2019-08-19 18:30 | XMS REPORT | Continuity of Care Document ---
:1940 External Reference #:[id number] Author Name Kymberly Quintero M.D. (transmitted by agent of provider Lilli Jacobo) Address [address] [facility] [address] [place] [address] Care Team Providers Name Role Phone Gal Stover MD - Family Medicine Care Team Information Ct Technician Problems Description No Information Available Social History Type Date Description Comments Sex Unknown ETOH Use Currently consumes alcohol 2 drinks Recreational Drug Use Denies Drug Use Tobacco Use Start: Unknown End: Patient is a former smoker Unknown Smoking Status Reviewed: 07/08/19 Patient is a former smoker Exercise Type/Frequency Does not exercise Allergies, Adverse Reactions, Alerts Active Allergies Reaction Severity Comments Date Sulfa Drugs 04/20/2014 Tobramycin 03/28/2019 Inactive Allergies NKDA 04/24/2014 Medications Active Medications SIG Qnty Indications Ordering Date Provider Prednisone 2 tablets day one 9tabs Other Ordering 07/08/2019 20mg and two, 1 tablet Provider Tablets day 3,4,5, then one half tablet day 6,7,8 and 9 Stiolto Respimat 1 puff by mouth 12gm Other Ordering 07/08/2019 twice a day Provider 2.5-2.5mcg/Act Aerosol Omeprazole 1 by mouth every 90caps Unknown 20mg day Capsules DR Simvastatin 1 by mouth every Unknown 40mg night at bedtime Tablets Metoprolol Tartrate 1 by mouth once a 180tabs Unknown day 50mg Tablets Combivent Respimat inhale 1 puff by Unknown mouth 4-6 times 20-100mcg/Act daily as needed Aerosol Albuterol Sulfate 1 unit dose via Unknown nebulizer every 4 (2.5mg/3ML) 0.083% hours as needed Nebulizer Clopidogrel 1 by mouth every Unknown Bisulfate day 75mg Tablets Medications Administered in Office Medication SIG [...] Unit Dose Up To 40 Millicuries Injection Immunizations Description No Information Available Vital Signs Date Vital Result Comment 07/08/2019 1:10pm Height 67 inches 5'7" Weight 152.00 lb Heart Rate 78 /min BP Systolic 158 mmHg BP Diastolic 84 mmHg O2 % BldC Oximetry 89 % BMI (Body Mass Index) 23.8 kg/m2 06/06/2019 10:27am Height 67 inches 5'7" Weight 162.00 lb with shoes Heart Rate 68 /min BP Systolic Sitting 144 mmHg lue reg cuff BP Diastolic Sitting 64 mmHg lue reg cuff BP Systolic Standing 150 mmHg lue reg cuff BP Diastolic Standing 64 mmHg lue reg cuff Respiratory Rate 28 /min BMI (Body Mass Index) 25.4 kg/m2 Ejection Fraction 50-55% echo. 05/15/19 Results Test Acquired Date Facility Test Result H/L Range Note Laboratory test 05/15/2019 [facility] SEE RESULT [address] [place] [address] [phone] Laboratory test 05/14/2019 [facility] SEE RESULT [address] [place] [address] [phone] 1 SEE RESULT BELOW Name: BLADE SANCHEZ : [address]: Una Swann MD Acct: [id number] Unit: [id number] AGE: 79 Location: [place] [address] Re05/13/19 SEX: M Status: ADM IN SPEC: [id number] KRISTI: 05/15/19 [facility] DR: Jesus Shi DO REQ: [id number] RECD: 05/15/19 STATUS: ESTEBAN VALLADARES DR: Gal [...] CONTINUED ON NEXT PAGE DEPARTMENT OF PATHOLOGY, [facility] [address] [place] [address] Abraham Cat M.D. Director [facility] # [id number] RUN DATE: 05/16/19 [facility] LAB LIVE PAGE 2 Patient: BLADE SANCHEZ [id number] (Continued) GROSS DESCRIPTION (Continued) Signed by and Reported on: Skyla Parr MD 05/16/19 1450 END OF REPORT DEPARTMENT OF PATHOLOGY, [facility] [address] [place], [place] [address] Abraham Cat M.D. Director [facility] # [id number] 2 SEE RESULT BELOW Name: BLADE SANCHEZ : [address]: Una Swann MD Acct: [id number] Unit: [id number] AGE: 79 Location: [place] [address] Re05/13/19 SEX: M Status: ADM IN SPEC: [id number] KRISTI: 05/14/19- SUBM DR: Magnolia Mon MD REQ: [id number] RECD: 05/14/19 STATUS: ESTEBAN VALLADARES DR: Dung Mann [employer] _ ORDERED: LEVEL 4 FINAL DIAGNOSIS Stomach, [...] 1325 END OF REPORT DEPARTMENT OF PATHOLOGY, [address] [place] [address] Abraham Cat M.D. Director [facility] # [id number] Procedures Date Code Description Status 06/06/2019 50322 EKG Tracing & Interpretation Completed 05/15/2019 46779 ECHO Transthorasic Realtime 2D W Doppler & Color Flow Completed Hosp 05/14/2019 09262 EKG, Interpretation Only Completed 04/16/2019 30606 EKG Tracing & Interpretation Completed 10/10/2016 30884302 Colonoscopy Completed Medical Devices Description No Information Available Encounters Type Date Location Provider Dx Diagnosis Office Visit 07/08/2019 Pul[facility]ology And Kathy Darwin, R06.02 Shortness of 2:00p [facility] MD brianna John J44.9 Chronic obstructive pulmonary disease, unspecified J84.9 Interstitial pulmonary disease, unspecified R09.02 Hypoxemia Office Visit 06/06/2019 10:30a [facility] Inderjit Purdy 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 disease of [place] cor art w ot ang pctrs R06.02 Shortness of breath I73.9 Peripheral vascular disease, unspecified R94.31 Abnormal electrocardiogram [ECG] [EKG] Office Visit 05/16/2019 [facility] Dung Purdy K92.2 Gastrointestinal 2:16p Assoc,iman Swann, hemorrhage, Hospitalists M.D.,FACP unspecified D50.0 Iron deficiency anemia secondary to blood loss (chronic) I48.91 Unspecified atrial fibrillation Office Visit 05/15/2019 [facility] Gurwinder K92.2 Gastrointestinal 2:15p Assoc,pc [place], hemorrhage, Hospitalists M.D.,FACP unspecified D64.9 Anemia, unspecified I10 Essential (primary) hypertension I48.91 Unspecified atrial fibrillation Office Visit 05/14/2019 [facility] Gurwinder K92.2 Gastrointestinal 2:14p Assoc,pc [place], hemorrhage, Hospitalists M.D.,FACP unspecified I10 Essential (primary) hypertension I48.91 Unspecified atrial fibrillation J44.9 Chronic obstructive pulmonary disease, unspecified Office 05/13/2019 [facility]ology Tod Rm K92.2 Gastrointestinal Visit 7:00a MD Eb hemorrhage, unspecified D50.0 Iron deficiency anemia secondary to blood loss (chronic) Office Visit 05/13/2019 [facility] Gurwinder K92.2 Gastrointestinal 2:14p Assoc,pc [place], hemorrhage, Hospitalists M.D.,FACP unspecified D62 Acute posthemorrhagic anemia I48.91 Unspecified atrial fibrillation I10 Essential (primary) hypertension Office Visit 04/16/2019 2:00p [facility] Inderjit Purdy 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 disease of [place] cor art w oth ang pctrs I10 Essential (primary) hypertension R06.02 Shortness of breath Assessments Date Code Description Provider 07/08/2019 R06.02 Shortness of breath Kathy Granados MD 07/08/2019 J44.9 Chronic obstructive pulmonary disease, Kathy Granados MD unspecified 07/08/2019 J84.9 Interstitial pulmonary disease, Kathy Granados MD unspecified 07/08/2019 R09.02 Hypoxemia Kathy Granados MD 06/06/2019 I25.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 [place] coronary artery with other forms of angina pectoris 06/06/2019 R06.02 Shortness of breath Inderjit Montes M.D. 06/06/2019 I73.9 Peripheral vascular disease Inderjit Montes M.D. 06/06/2019 R94.31 Abnormal electrocardiogram [ECG] [EKG] Inderjit Montes M.D. 05/16/2019 K92.2 Gastrointestinal hemorrhage, Dung Swann M.D.,FACP unspecified 05/16/2019 D50.0 Iron deficiency anemia secondary to Dung Swann M.D. ,FACP blood loss (chronic) 05/16/2019 I48.91 Unspecified atrial fibrillation Dung Swann M.D., FACP 05/15/2019 I48.91 Unspecified atrial fibrillation Kymberly Quintero M.D. 05/15/2019 K92.2 Gastrointestinal hemorrhage, Dung Swann M.D.,FACP unspecified 05/15/2019 D64.9 Anemia, unspecified Dung Swann M.D.,FACP 05/15/2019 I10 Essential (primary) hypertension Dung Swann M.D.,FACP 05/15/2019 I48.91 Unspecified atrial fibrillation Dung Swann M.D., FACP 05/14/2019 D64.89 Other specified anemias Wilfredo Isbell DO [facility] 05/14/2019 K92.2 Gastrointestinal hemorrhage, Dung Swann M.D.,FACP unspecified 05/14/2019 I10 Essential (primary) hypertension Dung Swann M.D.,FACP 05/14/2019 I48.91 Unspecified atrial fibrillation Dung Swann M.D., FACP 05/14/2019 J44.9 Chronic obstructive pulmonary disease, Dung Swann M.D.,FACP unspecified 05/13/2019 K92.2 Gastrointestinal hemorrhage, Tod Parson MD unspecified 05/13/2019 K92.2 Gastrointestinal hemorrhage, Dung Swann M.D.,FACP unspecified 05/13/2019 D50.0 Iron deficiency anemia secondary to Tod Parson MD blood loss (chronic) 05/13/2019 D62 Acute posthemorrhagic anemia Dung Swann M.D.,[facility] 05/13/2019 I48.91 Unspecified atrial fibrillation Dung Swann M.D., [facility] 05/13/2019 I10 Essential (primary) hypertension Dung Swann M.D.,[facility] 04/16/2019 I25.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 [place] coronary artery with other forms of angina pectoris 04/16/2019 I10 Essential (primary) hypertension Inderjit Montes M.D. 04/16/2019 R06.02 Shortness of breath Inderjit Montes M.D. Plan of Treatment Future Appointment(s):09/01/2019 11:30 am - Kathy Granados MD at [facility]09/03/2019 1:45 pm - Inderjit Montes M.D. at [facility]07/08/2019 - Kathy Granados, MDR06.02 Shortness of breathFollow up:1 rbvecJ51.9 Chronic obstructive pulmonary disease, zhdzqxfkdwiL09.9 Interstitial pulmonary disease, xajcjudmcisB67.02 Hypoxemia Functional Status Description No Information Available Mental Status Description No Information Available Referrals Description No Information Available
--- OUTSIDE RECORDS SUMMARY | 2019-08-19 18:30 | XMS REPORT | Continuity of Care Document ---
:1940 External Reference #:[id number] Author Name Kathy Granados MD (transmitted by agent of provider Kori Rivera) Address [address], [address] [place] [address] Care Team Providers Name Role Phone Gal Stover MD - Family Medicine Care Team Information Corporate Ethics Officer Problems Description No Information Available Social History [...] 0.1 MG Hair Angel M.D., 04/24/2014 Injection MAX, VIKRAM Inj, Regadenoson, 0.1 MG CINDY Partida 04/24/2014 [...] Ejection Fraction 50-55% echo. 05/15/19 Results Test Date Facility Test Result H/L Range Note Laboratory test 05/15/2019 [facility] Surgical SEE RESULT [address] Pathology Order BELOW [place], [place] [address] [phone] Laboratory test 05/14/2019 [facility] Surgical SEE RESULT [address] [place] [address] [phone] 1 SEE RESULT BELOW Name: BLADE SANCHEZ : [address]: Una Swann MD Acct: [id number] Unit: [id number] AGE: 79 Location: [place] [address] Re05/13/19 SEX: M Status: ADM IN SPEC: [id number] KRISTI: 05/15/19 [facility] DR: Jesus Shi DO REQ: [id number] RECD: 05/15/19 STATUS: ESTEBAN VALLADARES DR: Gal [...] DEPARTMENT OF PATHOLOGY, [facility] [employer] [place] [address] Abraham Cat M.D. Director [place]LEX # [id number] RUN DATE: 05/16/19 [facility] LAB LIVE PAGE 2 Patient: BLADE SANCHEZ [id number] (Continued) GROSS DESCRIPTION (Continued) Signed by and Reported on: Skyla Parr MD 05/16/19 1450 END OF REPORT DEPARTMENT OF PATHOLOGY, [facility] [employer] [place], [place] [address] Abraham Cat M.D. Director [facility]LEX # [id number] 2 SEE RESULT BELOW Name: RANGELBLADE Izzy : [address]: Una Swann MD Acct: [id number] Unit: [id number] AGE: 79 Location: [place] [address]- Re05/13/19 SEX: M Status: ADM IN SPEC: [id number] KRISTI: 05/14/19- SUBM DR: Magnolia Mon MD REQ: [id number] RECD: 05/14/19 STATUS: ESTEBAN VALLADARES DR: Dung Mann SALES REPRESENTATIVE [employer] _ ORDERED: LEVEL 4 FINAL DIAGNOSIS Stomach, [...] 1325 END OF REPORT DEPARTMENT OF PATHOLOGY, [address] [place] [address] Abraham Cat M.D. Director [facility] # [id number] Procedures Date Code Description Status 06/06/2019 16483 EKG Tracing & Interpretation Completed 05/15/2019 94847 ECHO Transthorasic Realtime 2D W Doppler & Color Flow Completed Hosp 05/14/2019 23179 EKG, Interpretation Only Completed 04/16/2019 74054 EKG Tracing & Interpretation Completed 10/10/2016 24695854 Colonoscopy Completed Medical Devices Description No Information Available Encounters Type Date Location Provider Dx Diagnosis Office Visit 07/08/2019 [facility] Kathy Darwin, R06.02 Shortness of 2:00p [facility] MD brianna John J44.9 Chronic obstructive pulmonary disease, unspecified J84.9 Interstitial pulmonary disease, unspecified R09.02 Hypoxemia Office Visit 06/06/2019 10:30a [facility] Inderjit Purdy 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 R06.02 Shortness of breath I73.9 Peripheral vascular disease, unspecified R94.31 Abnormal electrocardiogram [ECG] [EKG] Office Visit 05/16/2019 [facility] Dung Purdy K92.2 Gastrointestinal 2:16p Assoc[facility] [place], hemorrhage, Hospitalists M.DLuis,FACP unspecified D50.0 Iron deficiency anemia secondary to blood loss (chronic) I48.91 Unspecified atrial fibrillation [facility] K92.2 Gastrointestinal 2:15p [facility] [place], hemorrhage, Hospitalists MGallo,FACP unspecified D64.9 Anemia, unspecified I10 Essential (primary) hypertension I48.91 Unspecified atrial fibrillation Office Visit [facility]/14[facility]2019 [facility] K92.2 Gastrointestinal 2:14p [facility]oc[facility] [place], hemorrhage, Hospitalists MGallo,FACP unspecified I10 Essential (primary) hypertension I48.91 Unspecified atrial fibrillation J44.9 Chronic obstructive pulmonary disease, unspecified Office 05/13/2019 [facility] Gastroenterology Tod Rm K92.2 Gastrointestinal Visit 7:00a MD Eb hemorrhage, unspecified D50.0 Iron deficiency anemia secondary to blood loss (chronic) Office Visit [facility]/13[facility]2019 [facility] K92.2 Gastrointestinal 2:14p [facility]oc[facility] [place], hemorrhage, Hospitalists MGallo,FACP unspecified D62 Acute posthemorrhagic anemia I48.91 Unspecified atrial fibrillation I10 Essential (primary) hypertension Office Visit 04/16/2019 2:00p [facility] Inderjit Purdy 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 04/16/2019 R06.02 Shortness of breath Inderjit Montes M.D. Plan of Treatment Future Appointment(s):09/01/2019 11:30 am - Kathy Granados MD at [facility]09/03/2019 1:45 pm - Inderjit Montes M.D. at [facility]07/08/2019 - Kathy Granados, MDR06.02 Shortness of breathFollow up:1 qonokF12.9 Chronic obstructive pulmonary disease, unspecifiedNew Labs:Alpha 1 Antitrypsin A1a, Ordered: 07/08/19Arterial Blood Gas , Ordered: 07/08/19New Orders:Overnight Oximetry, Ordered: 07/08/19PFTW/ Spirometry Vol Pre/Post Bronchdilat Dlco Complete, Ordered: Minute Walk, Ordered: 07/08/19J84.9 Interstitial pulmonary disease, pwmppgbnbbiN94.02 Hypoxemia Functional Status Description No Information Available Mental Status Description No Information Available Referrals Description No Information Available
--- OUTSIDE RECORDS SUMMARY | 2019-08-19 18:31 | XMS REPORT | Continuity of Care Document ---
:1940 External Reference #:[id number] Author Name Consuelo Mann N.P. 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D. days,30x3d,20x2d, 10x7d Hydrocodone-Acetamino 1 tab by mouth 60tabs J18.9 [facility] 06/20/2019 phen three times a day Nelly Gutiérrez 7.5-325mg Tablets as needed Fluconazole 1 tab by mouth 2tabs J18.9 [facility] 06/20/2019 150mg today and january Nelly Gutiérrez Tablets repeat iLAST Day Of Abx Erythromycin apply thin layer [facility]gm [facility] 05/[facility] 5mg/GM on lesion under l Nelly Gutiérrez Ointment eye 4x daily x 2 weeks Oxygen Generator for continuous J44.9 [facility] 05/21/2019 oxygen titirate Nelly Gutiérrez up to 4L to maintain o2 sat between 88-96% Nicoderm CQ Uad 28units F17.293 [facility], [facility] 05/21/2019 7mg/24HR Nelly Gutiérrez Patches 24HR Aspirin 81 Low Dose 1 by mouth every 90units I10 [facility]k, [facility] 03/10/2019 morning Nelly Gutiérrez 81mg Chewtabs Bacitracin Zinc apply to wound on 28.350gm L89.312 Ck, [facility] 03/07/2019 buttocks bid x 14 Nelly Gutiérrez 500Unit/GM Ointment days. after washing with soap and water and pad dry. Combivent Respimat 1 puff twice a 12gm J44.9 Ck, [facility] 11/21/2018 day Nelly Gutiérrez 20-100mcg/Act Aerosol Prednisolone Acetate 1 drops both eyes 10ml H10.45 [facility] 08/06/2018 1% twice a day as Nelly Gutiérrez Suspension needed Nebulizer use as directed 1units J44.9 [facility] 01/21/2018 Device Nelly Gutiérrez Nebulizer use with 2units J44.9 [facility] 01/21/2018 Kit/Tubing/Mouthpiece nebulizer every 4 M. M.DLuis hours as needed Kit Betamethasone apply to affected 45gm L20.9 [facility] 12/05/2017 Dipropionate area ( Face) Nelly Gutiérrez 0.05% three times a day Cream as needed Simvastatin 1 by mouth every 90tabs E78.2 Ck, [facility] 03/27/2017 40mg night M., MLuisDLuis Tablets Metoprolol Tartrate 1 tab by mouth 90tabs I10 CkGal hercules 11/16/2016 every day M., M.D. 100mg Tablets Losartan tab one by mouth 90tabs I10 [facility], [facility] 03/31/2014 Potassium/Hydrochloro every in the M., M.D. thiazide morning 100-25mg Tablets R60.0 I87.2 Omeprazole 1 by mouth every 90caps K21.0 Gal Stover, 01/16/[address] day MLuisDLuis K30 History Medications Guiatuss 30ml by mouth [...] Medication SIG Qnty Indications Ordering Provider Date Rocephin 250 Consuelo Mann N.PLuis 06/23/2019 Injection Solu-Medrol Up To 40MG Consuelo Mann N.PLuis 06/20/2019 Injection Rocephin 250 Consuelo Mann N.PLuis 06/20/2019 Injection Solu-Medrol Up To 40MG Romeo Richards.Deborah 10/21/2018 Injection Rocephin 250 Gal Stover M.D. 07/30/2018 Injection Rocephin 250 Consuelo Mann N.PLuis 05/01/2018 Injection Solu-Medrol 125MG Gal Stover M.D. 12/20/2017 Injection Rocephin 250 Gal Stover M.D. 12/20/2017 Injection Admin Of Pneumovax Gal Stover M.D. 08/19/2015 Injection B12 Gal Stover M.D. 08/17/2011 Injection Immunizations CPT Code Status Date Vaccine Lot # [id number] Given 07/02/2018 Influenza,Unspecified [id number] Given 07/11/2016 Flu Vaccine 3+Yrs Old(Fluzone) [id number] Given 12/02/2015 Zoster Shingles Vaccine For Injection Q2038 Given 08/19/2015 Flu Vaccine 3+Yrs Old(Fluzone) [id number] Given 08/19/2015 Pneumovax [id number] 95053 Given 08/19/2015 Flu Vaccine [id number] 05530 Given 06/27/2014 Flu Vaccine Q2038 Given 07/31/2013 Flu Vaccine 3+Yrs Old(Fluzone) [id number] Q2038 Given 07/04/2012 Flu Vaccine 3+Yrs Old(Fluzone) [id number] Given 09/16/2009 Admin Of Influenza [id number] 51301 Given 08/08/2006 Flu Vaccine 21500 Given 07/31/2003 Pneumovax [id number] Vital Signs Date Vital Result Comment 06/23/2019 12:56pm BP Systolic 142 mmHg BP Diastolic 62 mmHg Height 68 inches 5'8" Weight 155.00 lb BMI (Body Mass Index) 23.6 kg/m2 Heart Rate 84 /min Respiratory Rate 17 /min 06/20/2019 1:47pm BP Systolic 135 mmHg BP Diastolic 59 mmHg Height 68 inches 5'8" Weight 152.00 lb BMI (Body Mass Index) 23.1 kg/m2 Heart Rate 100 /min Respiratory Rate 16 /min Results Test Date Facility Test Result H/L Range Note Laboratory test 06/20/2019 [facility] TSH,Ultras 3.660 mIU/L (0.360- 4.17 finding [address] [facility] ensitive @ 0) (607)- - Free Thyroxine @ 1.34 ng/dL (0.76-1.46) CBC With Diff 06/20/2019 [facility] WBC 15.0 10*3/uL High (4.1-11.0) [facility] [...] (0.0-11.0) Lymph % 3.0 % Low (16.0-52.0) [place] % 14.0 % High (0.0-8.0) Neut # 12.3 10*3/uL High (1.8-7.7) Band # 0.2 10*3/uL Lymph # 0.5 10*3/uL Low (1.2-4.8) [place] # 2.1 10*3/uL High (0.0-0.8) Aniso 1+ Poik 1+ Poly 1+ Large PLT 1+ Lipid 06/20/2019 [facility] Cholesterol @ 125 mg/dL (0-200) [address] [facility] (607)- - Triglyceride @ 90 mg/dL (30-200) HDL Cholesterol @ 36 mg/dL Low (>40) 1 Chol/HDL Ratio 3.5 RATIO 2 LDL Chol (Calc) 71 mg/dL (<130) 3 CMP 06/20/2019 [facility] Sodium 132 mmol/L Low (136-145) [address] (607)- - Potassium 4.9 mmol/L (3.6-5.2) Chloride [...] Low (>59) GFR Interpretation <SEE NOTE> 4 Laboratory 05/15/2019 [facility] Surgical SEE RESULT 5 test finding Pathology BELOW Order Laboratory 05/14/2019 [facility] SEE RESULT 6 test finding Pathology BELOW Order Laboratory 05/13/2019 [place] Occult POSITIVE Abnormal Negative 7, 8 test finding Blood,Stool Ua RFX Micro & 05/13/2019 [place] Urine Color YELLOW Yellow Culture II Urine Clarity CLEAR Clear Urine Glucose - Dipstick NEGATIVE mg/dL Negative Urine Bilirubin - Dipstick NEGATIVE Negative Urine Ketone NEGATIVE mg/dL Negative Urine Specific [place] 1.010 Normal 1.010-1.030 Urine Blood NEGATIVE Negative Urine PH 6.5 Normal 6.5-7.5 Urine Protein - Dipstick NEGATIVE mg/dL Negative Urine Urobilinogen - Dipstick 0.2 E.U./dL Normal 0.2-1.0 Urine Nitrite - Dipstick NEGATIVE Negative Urine Leuk Esterase NEGATIVE Negative Source: URINE, CLEAN CAT <SEE NOTE> 9 CBS W/Automated Diff 05/13/2019 [place] White Blood Count 12.1 K/uL High 3.4-10.5 [...] 33.0-73.0 Lymph % 5.6 % Low 20.0-42.0 [place] % 4.6 % Normal 0.0-10.0 Eo% 0.6 % Normal 0.0-6.6 Bas% 0.2 % Normal 0.0-1.1 Immature Grans 1.1 % Normal 0.0-5.0 NRBC % 0.0 /100WBC < 10/ 100 WBC Neut# 10.68 K/uL High 1.8-7.0 Lymph # 0.68 K/uL Low 1.0-4.0 [place]er # 0.56 K/uL Normal 0.0-0.8 Eos # 0.07 K/uL Normal 0.0-0.5 Baso # 0.02 K/uL Normal 0.0-0.1 Immature Grans Absolute 0.13 K/uL NRBC # 0.00 K/uL Lactic Acid 05/13/2019 [place] Lactic Acid 2.8 mmol/L Critical high 0.4- 1.9 Lab Reflex >2.0 for Sepsis? Y Comprehensive Metabolic Panel 05/13/2019 [place] Glucose 105 mg/dL Normal 74-106 BUN 18 mg/dL Normal 7-18 Creatinine 1.2 mg/dL Normal 0.6-1.3 Glom Filtration Rate, Estimate >60 mL/min >60 If >60 mL/min >60 10 BUN/Creat 15.0 ratio Sodium 139 mmol/L Normal [...] U/L Normal 45-117 Laboratory test finding 05/13/2019 [place] Lipase 224 U/L Normal 56-289 NT-proBNP 2852.0 pg/mL High <450 Laboratory test 05/12/2019 [place] Occult POSITIVE Abnormal Negative 11 , 12 finding Blood,Stool Laboratory test 05/11/2019 [place] Occult NEGATIVE Negative 13, 14 finding Blood,Stool CBC 05/01/2019 [place] White Blood 14.4 K/uL High 3.4-10.5 15 Count Red Blood Count 3.27 M/uL Low [...] 10/ 100 WBC Basic Metabolic Panel 05/01/2019 [place] Glucose 119 mg/dL High 74-106 BUN 36 mg/dL High 7-18 Creatinine 1.1 mg/dL Normal 0.6-1.3 Glom Filtration Rate, Estimate >60 mL/min >60 If >60 mL/min >60 16 BUN/Creat 32.7 ratio Sodium 139 mmol/L Normal 136-145 Potassium 3.2 mmol/L Low 3.5-5.1 Chloride 101 mmol/L Normal 98-107 Carbon Dioxide 33 mmol/L High 21-32 Anion Gap 5 mEq/L Low 8-16 Calcium 8.9 mg/dL Normal 8.5-10.1 Basic Metabolic Panel 04/29/2019 [place] Glucose 130 mg/dL High 74-106 17 BUN 30 mg/dL High 7-18 Creatinine 1.0 mg/dL Normal 0.6-1.3 Glom Filtration Rate, Estimate >60 mL/min >60 If >60 mL/min >60 18 BUN/Creat 30.0 ratio Sodium 140 mmol/L Normal 136-145 Potassium 4.0 mmol/L Normal 3.5-5.1 Chloride 105 mmol/L Normal 98-107 Carbon Dioxide 27 mmol/L Normal 21-32 Anion Gap 8 mEq/L Normal 8-16 Calcium 9.1 mg/dL Normal 8.5-10.1 Basic Metabolic Panel 04/28/2019 [place] Glucose 115 mg/dL High 74-106 BUN 31 mg/dL High 7-18 Creatinine 1.0 mg/dL Normal 0.6-1.3 Glom Filtration Rate, Estimate >60 mL/min >60 If >60 mL/min >60 19 BUN/Creat 31.0 ratio Sodium 141 mmol/L Normal 136-145 Potassium 4.1 mmol/L Normal 3.5-5.1 Chloride 107 mmol/L Normal 98-107 Carbon Dioxide 26 mmol/L Normal 21-32 Anion Gap 8 mEq/L Normal 8-16 Calcium 8.4 mg/dL Low 8.5-10.1 CBS W/Automated Diff 04/27/2019 [place] White Blood Count 13.8 K/uL High 3.4-10.5 [...] 33.0-73.0 Lymph % 3.3 % Low 20.0-42.0 Towner % 5.7 % Normal 0.0-10.0 Eo% 0.6 % Normal 0.0-6.6 Bas% 0.2 % Normal 0.0-1.1 Immature Grans 1.9 % Normal 0.0-5.0 NRBC % 0.3 /100WBC < 10/ 100 WBC Neut# 12.21 K/uL High 1.8-7.0 Lymph # 0.45 K/uL Low 1.0-4.0 Towner # 0.79 K/uL Normal 0.0-0.8 Eos # 0.08 K/uL Normal 0.0-0.5 Baso # 0.03 K/uL Normal 0.0-0.1 Immature Grans Absolute 0.26 K/uL NRBC # 0.04 K/uL Basic Metabolic Panel 04/27/2019 [place] Glucose 129 mg/dL High 74-106 BUN 27 mg/dL High 7-18 Creatinine 0.9 mg/dL Normal 0.6-1.3 Glom Filtration Rate, Estimate >60 mL/min >60 If >60 mL/min >60 20 BUN/Creat 30.0 ratio Sodium 139 mmol/L Normal 136-145 Potassium 3.6 mmol/L Normal 3.5-5.1 Chloride 106 mmol/L Normal 98-107 Carbon Dioxide 23 mmol/L Normal 21-32 Anion Gap 10 mEq/L Normal 8-16 Calcium 8.6 mg/dL Normal 8.5-10.1 Basic Metabolic Panel 04/26/2019 [place] Glucose 124 mg/dL High 74-106 BUN 26 mg/dL High 7-18 Creatinine 0.8 mg/dL Normal 0.6-1.3 Glom Filtration Rate, Estimate >60 mL/min >60 If >60 mL/min >60 21 BUN/Creat 32.5 ratio Sodium 140 mmol/L Normal 136-145 Potassium 3.9 mmol/L Normal 3.5-5.1 Chloride 108 mmol/L High 98-107 Carbon Dioxide 25 mmol/L Normal 21-32 Anion Gap 7 mEq/L Low 8-16 Calcium 8.3 mg/dL Low 8.5-10.1 Lactic Acid 04/25/2019 [place] Lactic Acid 1.4 mmol/L Normal 0.4-1.9 Lab Reflex >2.0 for Sepsis? N Basic Metabolic Panel 04/25/2019 [place] Glucose 133 mg/dL High 74-106 BUN 18 mg/dL Normal 7-18 Creatinine 0.8 mg/dL Normal 0.6-1.3 Glom Filtration Rate, Estimate >60 mL/min >60 If >60 mL/min >60 22 BUN/Creat 22.5 ratio Sodium 138 mmol/L Normal 136-145 Potassium 3.5 mmol/L Normal 3.5-5.1 Chloride 105 mmol/L Normal 98-107 Carbon Dioxide 24 mmol/L Normal 21-32 Anion Gap 9 mEq/L Normal 8-16 Calcium 8.4 mg/dL Low 8.5-10.1 CBS W/Automated Diff 04/24/2019 [place] White Blood 10.4 K/uL Normal 3.4 -10.5 [...] 33.0-73.0 Lymph % 3.5 % Low 20.0-42.0 Towner % 1.4 % Normal 0.0-10.0 Eo% 0.0 % Normal 0.0-6.6 Bas% 0.0 % Normal 0.0-1.1 Immature Grans 0.7 % Normal 0.0-5.0 NRBC % 0.0 /100WBC < 10/ 100 WBC Neut# 9.79 K/uL High 1.8-7.0 Lymph # 0.36 K/uL Low 1.0-4.0 Towner # 0.14 K/uL Normal 0.0-0.8 Eos # 0.00 K/uL Normal 0.0-0.5 Baso # 0.00 K/uL Normal 0.0-0.1 Immature Grans Absolute 0.07 K/uL NRBC # 0.00 K/uL Laboratory test 04/24/2019 [place] Lactic Acid 1.8 mmol/L Normal 0.4- 1.9 finding Lactic Acid 04/24/2019 [place] Lactic Acid 2.2 mmol/L Critical high 0.4- 1.9 Lab Reflex >2.0 for Sepsis? Y Lactic Acid 04/23/2019 [place] Lactic Acid 2.2 mmol/L Critical high 0.4- 1.9 Lab Reflex >2.0 for Sepsis? Y Blood Culture 04/23/2019 [place] Blood Culture Aerobic NO GROWTH: FINAL < SEE 23 NOTE> Blood Culture Anaerobic NO GROWTH: FINAL <SEE NOTE> 24 Laboratory test 04/23/2019 [place] D-Dimer, 3.18 ug/mL 25, 26 finding Quantitative Lactic Acid 04/23/2019 [place] Lactic Acid 3.6 mmol/L Critical 0.4- high 1.9 Lab Reflex >2.0 for Sepsis? Y Aot Request 04/23/2019 [place] Aot Request Test(s) added 27 Tests to be added: crp Blood Culture 04/23/2019 [place] Blood Culture NO GROWTH: FINAL 28, 29 Aerobic <SEE NOTE> Blood Culture Anaerobic NO GROWTH: FINAL <SEE NOTE> 30 Laboratory test 03/10/2019 [facility] Rheumatoid Factor <15 IU/mL (0- 15) finding [address] [facility] @ (607)- - C Reactive Protein @ 0.5 mg/dL (0.0-0.5) Esr 8 mm/h (0-20) Uric Acid 6.8 mg/dL (3.5-7.2) TSH,Ultrasensitive @ 1.940 mIU/L (0.360-4.170) PSA Free And 03/10/2019 [facility] PSA Total 4.6 ng/mL High (0.0-4.0) Total [address] (607)- - PSA Free 0.9 ng/mL PSA % Free 20 % 31 Laboratory test 03/10/2019 [facility] 25 Hydroxy Vit D 20 ng/mL Low (31 -100) 32 finding [address] [facility] @ (607)- - Lipid Extended 03/10/2019 [facility] Appearance CLEAR (Clear) Panel [address] [facility] (601)- - Cholesterol @ 170 mg/dL (0-200) Triglyceride @ 137 mg/dL (30-200) HDL Cholesterol @ 71 mg/dL (>40) 33 Chol/HDL Ratio 2.4 RATIO 34 Direct LDL @ 85 mg/dL (<130) 35 VLDL (Calc) 14 mg/dL (0-30) Laboratory test 03/10/2019 [facility] Magnesium 1.7 mg/dL (1.7-2.4) finding [address] [facility] (607)- - CMP 03/10/2019 [facility] Sodium 141 mmol/L (136-145) [address] [facility] [facility] (608)- - Potassium 3.3 mmol/L Low (3.6-5.2) Chloride [...] >60 ml/min/1.73m2 (>59) GFR Interpretation <SEE NOTE> 36 CBC With Diff 03/10/2019 [facility] WBC 14.5 10*3/uL High (4.1-11.0) [address] [facility] (607)- - RBC 4.61 10*6/uL (4.60-6.10) HGB 14.8 g/dL (13.5-18.0) HCT 44.5 % (41.0-53.0) MCV 96.7 fL High (80.0-95.0) MCH 32.1 pg High (27.0-32.0) MCHC 33.2 g/dL (32.0-36.0) RDW 14.2 % (10.5-14.5) PLT 301 10*3/uL (150-450) MPV 7.1 fL (7.1-10.7) Neut % 68.0 % (35.0-75.0) Lymph % 21.1 % (16.0-52.0) Towner % 9.9 % High (0.0-8.0) Eos % 0.5 % (0.0-5.0) Baso % 0.5 % (0.0-4.0) Neut # 9.9 10*3/uL High (1.8-7.7) Lymph # 3.1 10*3/uL (1.2-4.8) [place] # 1.4 10*3/uL High (0.0-0.8) Eos # 0.1 10*3/uL (0.0-0.5) Baso # 0.1 10*3/uL (0.0-0.2) 1 PER NCEP ATP III GUIDELINES: RESULTS LOWER THAN 40 MG/DL ARE SUGGESTIVE OF INCREASED RISK FOR CORONARY ARTERY DISEASE. RESULTS > OR = TO 60 MG/DL ARE CONSIDERED A NEGATIVE RISK FACTOR. 2 INTERPRETATION OF CHOL-HDL RATIO CHD RISK FEMALE MALE VERY HIGH >8.3 >14.3 HIGH 5.6- 8.3 6.7- 14.3 AVERAGE 3.7- 5.6 4.0- 6.7 BELOW AVERAGE 2.5- 3.7 2.7- 4.0 PROTECTED <2.5 <2.7 3 PER NCEP ATP III GUIDELINES: OPTIMAL < 100 NEAR OPTIMAL 100 - 129 BORDERLINE HIGH 130 - 159 HIGH 160 - 189 VERY HIGH > 189 4 NORMAL KIDNEY FUNCTION OR MILD DISEASE - GFR >OR= 60 CHRONIC KIDNEY DISEASE - GFR 15 - 59 RENAL FAILURE - GFR <15 Est. GFR calculation based on the MDRD study equation, which assumes a steady state for creatinine. Est. GFR should not be used for medication dosing. 5 SEE RESULT BELOW Name: BLADE SANCHEZ : [address]: Una Swann MD Acct: [id number] Unit: [id number] AGE: 79 Location: [place] [address] Re05/13/19 SEX: M Status: ADM IN SPEC: [id number] KRISTI: 05/15/19 [facility] DR: Jesus Shi DO REQ: [id number] RECD: 05/15/19 STATUS: ESTEBAN VALLADARES DR: Gal [...] CONTINUED ON NEXT PAGE DEPARTMENT OF PATHOLOGY, [address] [place] [address] Abraham Cat M.D. Director [facility] # [id number] RUN DATE: 05/16/19 [facility] LAB LIVE PAGE 2 Patient: BLADE SANCHEZ [id number] (Continued) GROSS DESCRIPTION (Continued) Signed by and Reported on: Skyla Parr MD 05/16/19 1450 END OF REPORT DEPARTMENT OF PATHOLOGY, [address] [place] [address] Abraham Cat M.D. Director [facility] # [id number] 6 SEE RESULT BELOW Name: BLADE SANCHEZ : [address]: Una Swann MD Acct: [id number] Unit: [id number] AGE: 79 Location: [place] [address]- Re05/13/19 SEX: M Status: ADM IN SPEC: [id number] KRISTI: 05/14/19- SUBM DR: Magnolia Mon MD REQ: [id number] RECD: 05/14/19 STATUS: ESTEBAN VALLADARES DR: Dung Mann MEDIA STRATEGIST _ ORDERED: LEVEL 4 FINAL DIAGNOSIS Stomach, [...] 1325 END OF REPORT DEPARTMENT OF PATHOLOGY, [address] [place] [address] Abraham Cat M.D. Director [facility] # [id number] 7 GI BLEED 8 Method: [place] Hem[facility]cult Card 9 URINE, CLEAN CATCH 10 Note: Persistent reduction for 3 months or more in an eGFR <60 mL/min/1.73 m2 defines CKD. Patients with eGFR values >/=60 mL/min/1.73 m2 may also have CKD if evidence of persistent proteinuria is present. The original MDRD equation for estimated GFR is not valid for patients less than 18 years of age. Additional information may be found at [email or web address]. 11 D64.9 Z79.01 Z79.02 12 Method: [place] Hemoccult Card 13 D64.9 14 Method: [place] Hemoccult [facility] 15 APPROVED 16 Note: Persistent reduction for 3 months or more in an eGFR <60 mL/min/1.73 m2 defines CKD. Patients with eGFR values >/=60 mL/min/1.73 m2 may also have CKD if evidence of persistent proteinuria is present. The original MDRD equation for estimated GFR is not valid for patients less than 18 years of age. Additional information may be found at [email or web address]. 17 SEPSIS, PNEUMONIA 18 Note: Persistent reduction for 3 months or more in an eGFR <60 mL/min/1.73 m2 defines CKD. Patients with eGFR values >/=60 mL/min/1.73 m2 may also have CKD if evidence of persistent proteinuria is present. The original MDRD equation for estimated GFR is not valid for patients less than 18 years of age. Additional information may be found at [email or web address]. 19 Note: Persistent reduction for 3 months [...] information may be found at [email or web address]. 23 NO GROWTH: FINAL REPORT 24 NO GROWTH: FINAL REPORT 25 REF BY CONSUELO WHITE,CP/DIFFICULTY BREATHING. 26 <=0.49 ug/mL - Low likelihood of DIC, DVT or Pulmonary Embolism >0.49 ug/mL - Additional testing should be done to rule out DIC, DVT, or Pulmonary embolism as clinically indicated. ([facility] has established a 97.89% negative predictive value for thrombotic disease when a cutoff value of 0.5 ug/mL is used.) 27 Tests: crp Instructions: 28 SEPSIS, PNEUMONIA 29 NO GROWTH: FINAL REPORT 30 NO GROWTH: FINAL REPORT 31 % FREE PSA PROBABILITY OF CANCER 0 [...] DIAGNOSIS OF CANCER. (See: BRENDA 1998; 279: 6889-1003) METHOD USED TO ASSAY BOTH FREE PSA AND TOTAL PSA IS [employer] LOCI CHEMILUMINESCENT IMMUNOASSAY (CALIBRATION TRACEABLE TO WHO , 1998, 96/668). RESULTS SHOULD NOT BE INTERPRETED ABSOLUTE EVIDENCE FOR THE PRESENCE OR ABSENCE OF MALIGNANT DISEASE. VALUES OBTAINED WITH DIFFERENT ASSAY METHODS OR KITS CANNOT BE USED INTERCHANGEABLY. 32 A REVIEW OF THE LITERATURE SUGGESTS THE FOLLOWING RANGES FOR THE CLASSIFICATION OF 25-OH VITAMIN D STATUS: VITAMIN D STATUS 25-OH VITAMIN D DEFICIENCY <20 NG/ML INSUFFICIENCY 20-30 NG/ML SUFFICIENCY 31 - 100 NG/ML TOXICITY > 100 NG/ML A PEDIATRIC REFERENCE RANGE HAS NOT BEEN ESTABLISHED USING THIS METHOD. 33 PER NCEP ATP III GUIDELINES: RESULTS LOWER THAN 40 MG/DL ARE SUGGESTIVE OF INCREASED RISK FOR CORONARY ARTERY DISEASE. RESULTS > OR = TO 60 MG/DL ARE CONSIDERED A NEGATIVE RISK FACTOR. 34 INTERPRETATION OF CHOL-HDL RATIO CHD RISK FEMALE MALE VERY HIGH >8.3 >14.3 HIGH 5.6- 8.3 6.7- 14.3 AVERAGE 3.7- 5.6 4.0- 6.7 BELOW AVERAGE 2.5- 3.7 2.7- 4.0 PROTECTED <2.5 <2.7 35 PER NCEP ATP III GUIDELINES: OPTIMAL < 100 NEAR OPTIMAL 100 - 129 BORDERLINE HIGH 130 - 159 HIGH 160 - 189 VERY HIGH > 189 36 NORMAL KIDNEY FUNCTION OR MILD DISEASE - GFR >OR= 60 CHRONIC KIDNEY DISEASE - GFR 15 - 59 RENAL FAILURE - GFR <15 Est. GFR calculation based on the MDRD study equation, which assumes a steady state for creatinine. Est. GFR should not be used for medication dosing. Procedures Date Code Description Status 06/20/2019 19255 Injection DX/Therapeutic/Prophy Completed 06/20/2019 82143 Nebulizer-Ippb Treatment Completed 03/10/2019 61447 EKG Completed 02/07/2019 65070 Spirometry Completed 02/07/2019 62628 Tympanometry Completed 10/10/2016 [id number] Colonoscopy Completed Medical Devices Description No Information Available Encounters Type Date Location Provider Dx Diagnosis Office Visit 06/23/2019 [facility] Consuelo Mann, I10 Essential ( primary) 1:00p N.P. hypertension E78.2 Mixed hyperlipidemia J44.9 Chronic obstructive pulmonary disease, unspecified I25.10 [facility] heart disease of [place] coronary artery w/o ang pctrs E55.9 Vitamin [...] (BMI) 23.0-23.9, adult Office Visit 06/20/2019 2:15p [facility] Consuelo Mann, I10 Essential (primary) N.P. hypertension E78.2 Mixed hyperlipidemia J44.9 Chronic obstructive pulmonary disease, unspecified I25.10 Athscl heart disease of [place] coronary artery w/o ang pctrs E55.9 Vitamin [...] (BMI) 23.0-23.9, adult Office Visit 05/26/2019 2:30p [facility] Consuelo Mann, I10 Essential (primary) N.P. hypertension E78.2 Mixed hyperlipidemia J44.9 Chronic obstructive pulmonary disease, unspecified I25.10 Athscl heart disease of [place] coronary artery w/o ang pctrs E55.9 Vitamin [...] (BMI) 23.0-23.9, adult Office Visit 05/21/2019 3:00p [facility] Consuelo Mann, I10 Essential (primary) N.P. hypertension E78.2 Mixed hyperlipidemia J44.9 Chronic obstructive pulmonary disease, unspecified I25.10 Athscl heart disease of [place] coronary artery w/o ang pctrs E55.9 Vitamin [...] (BMI) 23.0-23.9, adult Office Visit 04/23/2019 9:45a [facility] Consuelo Mann, I10 Essential (primary) N.P. hypertension E78.2 Mixed hyperlipidemia J44.9 Chronic obstructive pulmonary disease, unspecified I25.10 Athscl heart disease of [place] coronary artery w/o ang pctrs E55.9 Vitamin [...] (BMI) 23.0-23.9, adult Office Visit 03/31/2019 3:30p [facility] Consuelo Mann, I10 Essential (primary) N.P. hypertension E78.2 Mixed hyperlipidemia J44.9 Chronic obstructive pulmonary disease, unspecified I25.10 Athscl heart disease of [place] coronary artery w/o ang pctrs E55.9 Vitamin [...] (BMI) 23.0-23.9, adult Office Visit 03/17/2019 3:15p [facility] Consuelo Mann, I10 Essential (primary) N.P. hypertension E78.2 Mixed hyperlipidemia J44.9 Chronic obstructive pulmonary disease, unspecified I25.10 Athscl heart disease of [place] coronary artery w/o ang pctrs E55.9 Vitamin [...] (BMI) 23.0-23.9, adult Office Visit 03/10/2019 10:45a [facility] Consuelo Mann, I10 Essential (primary) N.P. 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 hypertension E78.2 Mixed hyperlipidemia J44.9 Chronic obstructive pulmonary disease, unspecified I25.10 Athscl heart disease of [place] coronary artery w/o ang pctrs E55.9 Vitamin [...] sciatica, right side Office Visit 02/07/2019 3:45p [facility] Consuelo Mann, I10 Essential (primary) N.P. hypertension E78.2 Mixed hyperlipidemia J44.9 Chronic obstructive pulmonary disease, unspecified I25.10 Athscl heart disease of [place] coronary artery w/o ang pctrs E55.9 Vitamin [...] vertebra, init Assessments Date Code Description Provider 06/23/2019 I10 Essential (primary) hypertension Consuelo Mann N.P. 06/23/2019 E78.2 Mixed hyperlipidemia Consuelo Mann N.P. 06/23/2019 J44.9 Chronic obstructive pulmonary disease, Consuelo Mann N.P. 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 06/23/2019 N40.0 Benign prostatic hyperplasia without lower Consuelo Mann, N.PLuis urinary tract symptoms 06/23/2019 K21.0 Gastro-esophageal reflux disease with Romeo Richards.PLuis esophagitis 06/23/2019 J30.2 Other seasonal allergic rhinitis Consuelo Mann N.P. 06/23/2019 M15.9 Polyosteoarthritis, unspecified Consuelo Mann N.P. 06/23/2019 M54.5 Low back pain Consuelo Mann N.PLuis 06/23/2019 R06.02 Shortness of breath Consuelo Mann N.PLuis 06/23/2019 R60.0 Localized edema Consuelo Mann N.PLuis 06/23/2019 E83.42 Hypomagnesemia Consuelo Mann N.P. 06/23/2019 R97.20 Elevated prostate specific antigen [PSA] Consuelo Mann N.PLuis 06/23/2019 M54.6 Pain in thoracic spine Consuelo Mann N.PLuis 06/23/2019 I87.2 Venous insufficiency (chronic) (peripheral) Consuelo Mann N.PLuis 06/23/2019 H10.403 Unspecified chronic conjunctivitis, bilateral Consuelo Mann N.P. 06/23/2019 H91.8x3 Other specified hearing loss, bilateral Consuelo Mann N.P. 06/23/2019 L20.9 Atopic dermatitis, unspecified Consuelo Mann N.P. 06/23/2019 F17.210 Nicotine dependence, cigarettes, Consuelo Mann N.PLuis uncomplicated 06/23/2019 J30.9 Allergic rhinitis, unspecified Consuelo Mann N.P. 06/23/2019 J18.9 Pneumonia, unspecified organism Consuelo Mann N.PLuis 06/23/2019 H92.03 Otalgia, bilateral Consuelo Mann N.P. 06/23/2019 H10.022 Other mucopurulent conjunctivitis, left eye Consuelo Mann N.P. 06/23/2019 H10.45 Other chronic allergic conjunctivitis Consuelo Mann N.PLuis 06/23/2019 B37.0 Candidal stomatitis Consuelo Mann N.P. 06/23/2019 S22.000A Wedge compression fracture of unspecified Consuelo Mann N.Deborah thoracic vertebra, initial encounter for closed fracture 06/23/2019 L89.312 Pressure ulcer of right buttock, stage 2 Consuelo Mann N.PLuis 06/23/2019 M54.17 Radiculopathy, lumbosacral region Consuelo Mann, N.P. 06/23/2019 M54.31 Sciatica, right side Consuelo Mann, N.P. 06/23/2019 M54.41 Lumbago with sciatica, right side Consuelo Mann, N.P. 06/23/2019 R53.83 Other fatigue Consuelo Mann, N.P. 06/23/2019 I71.4 Abdominal aortic aneurysm, without rupture Consuelo Mann, N.P. 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 06/23/2019 I73.9 Peripheral vascular disease, unspecified Consuelo Mann, N.P. 06/23/2019 R07.9 Chest pain, unspecified Consuelo Mann, N.P. 06/23/2019 F17.293 Nicotine dependence, other tobacco product, Consuelo Mann , N.P. with withdrawal 06/23/2019 Z68.23 Body mass index (BMI) 23.0-23.9, adult Consuelo Mann N.P. 06/20/2019 I10 Essential (primary) hypertension Consuelo Mann, N.P. 06/20/2019 E78.2 Mixed hyperlipidemia Consuelo Mann, N.P. 06/20/2019 J44.9 Chronic obstructive pulmonary disease, Consuelo Mann, N.P. 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 06/20/2019 N40.0 Benign prostatic hyperplasia without lower Consuelo Mann, N.PLuis urinary tract symptoms 06/20/2019 K21.0 Gastro-esophageal reflux disease with Consuelo Mann, N.P. esophagitis 06/20/2019 J30.2 Other seasonal allergic rhinitis [...] 06/20/2019 I71.4 Abdominal aortic aneurysm, without rupture Cnosuelo Mann N.P. 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 06/20/2019 I73.9 Peripheral vascular disease, unspecified Consuelo Mann N.P. 06/20/2019 R07.9 Chest pain, unspecified Consuelo Mann, N.P. 06/20/2019 F17.293 Nicotine dependence, other tobacco product, Consuelo Mann , N.P. with withdrawal 06/20/2019 Z68.23 Body mass index (BMI) 23.0-23.9, adult Consuelo Mann, N.P. 05/26/2019 I10 Essential (primary) hypertension Consuelo Mann N.P. 05/26/2019 E78.2 Mixed hyperlipidemia Consuelo Mann, N.P. 05/26/2019 J44.9 Chronic obstructive pulmonary disease, Consuelo Mann, N.P. unspecified 05/26/2019 I25.10 Atherosclerotic heart disease of [place] Consuelo Mann N.P. coronary artery with 05/26/2019 E55.9 Vitamin D deficiency, unspecified Consuelo Mann, N.P. 05/26/2019 N40.0 Benign prostatic hyperplasia without lower Consuelo Mann N.P. urinary tract sym 05/26/2019 K21.0 Gastro-esophageal reflux disease with Consuelo Mann N.PLuis esophagitis 05/26/2019 J30.2 Other seasonal allergic rhinitis Conseulo Mann N.P. 05/26/2019 M15.9 Polyosteoarthritis, unspecified Consuelo Mann, N.P. 05/26/2019 M54.5 Low back pain Consuelo Mann N.P. 05/26/2019 R06.02 Shortness of breath Consuelo Mann N.P. 05/26/2019 R60.0 Localized edema Consuelo Mann N.P. 05/26/2019 E83.42 Hypomagnesemia Consuelo Mann N.P. 05/26/2019 R97.20 Elevated prostate specific antigen [PSA] Consuelo Mann, N.P. 05/26/2019 M54.6 Pain in thoracic spine Consuelo Mann, N.P. 05/26/2019 I87.2 Venous insufficiency (chronic) (peripheral) Consuelo Mann, N.P. 05/26/2019 H10.403 Unspecified chronic conjunctivitis, bilateral Consuelo Mann, N.P. 05/26/2019 H91.8x3 Other specified hearing loss, bilateral Consuelo Mann N.P. 05/26/2019 L20.9 Atopic dermatitis, unspecified Consuelo Mann N.P. 05/26/2019 F17.210 Nicotine dependence, cigarettes, Consuelo Mann N.P. uncomplicated 05/26/2019 J30.9 Allergic rhinitis, unspecified Consuelo Mann, N.P. 05/26/2019 J18.9 Pneumonia, unspecified organism Consuelo Mann, N.P. 05/26/2019 H92.03 Otalgia, bilateral Consuelo Mann, N.P. 05/26/2019 H10.022 Other mucopurulent conjunctivitis, left eye Consuelo Mann N.P. 05/26/2019 H10.45 Other chronic allergic conjunctivitis Consuelo Mann, N.P. 05/26/2019 B37.0 Candidal stomatitis Consuelo Mann, N.P. 05/26/2019 S22.000A Wedge compression fracture of unspecified Consuelo Mann , N.PLuis thoracic vertebra, 05/26/2019 L89.312 Pressure ulcer [...] 05/26/2019 I73.9 Peripheral vascular disease, unspecified Consuelo Mann N.P. 05/26/2019 R07.9 Chest pain, unspecified Consuelo Mann, N.P. 05/26/2019 F17.293 Nicotine dependence, other tobacco product, Consuelo Mann , N.P. with withdrawal 05/26/2019 Z68.23 Body mass index (BMI) 23.0-23.9, adult Consuelo Mann N.P. 05/21/2019 I10 Essential (primary) hypertension Consuelo Mann, N.P. 05/21/2019 E78.2 Mixed hyperlipidemia Consuelo Mann N.P. 05/21/2019 J44.9 Chronic obstructive pulmonary disease, Consuelo Mann N.P. unspecified 05/21/2019 I25.10 Atherosclerotic heart disease of [place] Consuelo Mann N.PLuis coronary artery with 05/21/2019 E55.9 Vitamin D deficiency, unspecified Consuelo Mann N.P. 05/21/2019 N40.0 Benign prostatic hyperplasia without lower Consuelo Mann N.PLuis urinary tract sym 05/21/2019 K21.0 Gastro-esophageal reflux disease with Consuelo Mann N.PLuis esophagitis 05/21/2019 J30.2 Other seasonal allergic rhinitis Consuelo Mann N.P. 05/21/2019 M15.9 Polyosteoarthritis, unspecified Consuelo Mann, N.P. 05/21/2019 M54.5 Low back pain Consuelo [...] N.P. 05/21/2019 L20.9 Atopic dermatitis, unspecified Consuelo Mann N.P. 05/21/2019 F17.210 Nicotine dependence, cigarettes, Consuelo Mann N.P. uncomplicated 05/21/2019 J30.9 Allergic rhinitis, unspecified Consuelo Mann, N.P. 05/21/2019 J18.9 Pneumonia, unspecified organism Consuelo Mann N.P. 05/21/2019 H92.03 Otalgia, bilateral Consuelo Mann [...] N.P. 05/21/2019 R07.9 Chest pain, unspecified Consuelo Mann N.P. 05/21/2019 F17.293 Nicotine dependence, other tobacco product, Consuelo Mann , N.P. with withdrawal 05/21/2019 Z68.23 Body mass index (BMI) 23.0-23.9, adult Consuelo Mann, N.P. 04/23/2019 I10 Essential (primary) hypertension Consuelo Mann N.P. 04/23/2019 E78.2 Mixed hyperlipidemia Consuelo Mann, N.P. 04/23/2019 J44.9 Chronic obstructive pulmonary disease, Consuelo Mann N.P. 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 04/23/2019 N40.0 Benign prostatic hyperplasia without lower Consuelo Mann N.PLuis urinary tract sym 04/23/2019 K21.0 Gastro-esophageal reflux disease with Consuelo Mann N.PLuis esophagitis 04/23/2019 J30.2 Other seasonal allergic rhinitis Consuelo Mann N.P. 04/23/2019 M15.9 Polyosteoarthritis, unspecified Consuelo Mann N.P. 04/23/2019 M54.5 Low back pain Consuelo Mann N.P. 04/23/2019 R06.02 Shortness of breath Consuelo Mann N.P. 04/23/2019 R60.0 Localized edema Consuelo Mann, N.P. 04/23/2019 E83.42 Hypomagnesemia Consuelo Mann, N.P. 04/23/2019 R97.20 Elevated prostate specific antigen [PSA] Consuelo Mann, N.P. 04/23/2019 M54.6 Pain in thoracic spine Consuelo Mann N.P. 04/23/2019 I87.2 Venous insufficiency (chronic) (peripheral) Consuelo Mann, N.P. 04/23/2019 H10.403 Unspecified chronic conjunctivitis, bilateral Consuelo Mann, N.P. 04/23/2019 H91.8x3 Other specified hearing loss, [...] unspecified Consuelo Mann , N.P. thoracic vertebra, 04/23/2019 L89.312 [...] unspecified 03/31/2019 I25.10 Atherosclerotic heart disease of [place] Consuelo Mann N.PLuis coronary artery with 03/31/2019 [...] N.P. 03/31/2019 F17.210 Nicotine dependence, cigarettes, Consuelo Mann, N.P. uncomplicated 03/31/2019 J30.9 Allergic rhinitis, unspecified Consuelo Mann, N.P. 03/31/2019 J18.9 Pneumonia, unspecified organism Consuelo Mann, N.P. 03/31/2019 H92.03 Otalgia, bilateral Consuelo Mann, N.P. 03/31/2019 H10.022 Other mucopurulent conjunctivitis, left eye Consuelo Mann , N.P. 03/31/2019 H10.45 Other chronic allergic conjunctivitis Consuelo Mann, N.P. 03/31/2019 B37.0 Candidal stomatitis Consuelo Mann, N.P. 03/31/2019 S22.000A Wedge compression fracture of unspecified Consuelo Mann N.PLuis thoracic vertebra, 03/31/2019 L89.312 Pressure ulcer of right buttock, stage 2 Consuelo Mann, N.P. 03/31/2019 M54.17 Radiculopathy, lumbosacral region Consuelo Mann N.P. 03/31/2019 M54.31 Sciatica, right side Consuelo Mann, N.P. 03/31/2019 M54.41 Lumbago with sciatica, right side Consuelo Mann, N.P. 03/31/2019 R53.83 Other fatigue Consuelo Mann, N.P. 03/31/2019 I71.4 Abdominal aortic aneurysm, without rupture Consuelo Mann, N.P. 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 03/31/2019 Z68.23 Body mass index (BMI) 23.0-23.9, adult Consuelo Mann, N.P. 03/17/2019 I10 Essential (primary) hypertension Consuelo Mann, N.P. 03/17/2019 E78.2 Mixed hyperlipidemia Consuelo Mann, N.P. 03/17/2019 J44.9 Chronic obstructive pulmonary disease, Consuelo Mann, N.P. unspecified 03/17/2019 I25.10 Atherosclerotic heart disease of [place] Consuelo Mann N.PLuis coronary artery with 03/17/2019 E55.9 Vitamin D deficiency, unspecified Consuelo Mann N.P. 03/17/2019 N40.0 Benign prostatic hyperplasia without lower Consuelo Mann N.PLuis urinary tract sym 03/17/2019 K21.0 Gastro-esophageal reflux disease with Consuelo Mann N.PLuis esophagitis 03/17/2019 J30.2 Other seasonal allergic rhinitis Consuelo Mann N.PLuis 03/17/2019 M15.9 Polyosteoarthritis, unspecified Consuelo Mann N.P. 03/17/2019 M54.5 Low back pain Consuelo Mann N.P. 03/17/2019 R06.02 Shortness of breath Consuelo Mann N.PLuis 03/17/2019 R60.0 Localized edema Consuelo Mann N.P. 03/17/2019 E83.42 Hypomagnesemia Consuelo Mann N.P. 03/17/2019 R97.20 Elevated prostate specific antigen [PSA] Consuelo Mann N.PLuis 03/17/2019 M54.6 Pain in thoracic spine Consuelo Mann N.PLuis 03/17/2019 I87.2 Venous insufficiency (chronic) (peripheral) Consuelo Mann N.P. 03/17/2019 H10.403 Unspecified chronic conjunctivitis, bilateral Consuelo Mann N.P. 03/17/2019 H91.8x3 Other specified hearing loss, bilateral Consuelo Mann N.P. 03/17/2019 L20.9 Atopic dermatitis, unspecified Consuelo Mann N.P. 03/17/2019 F17.210 Nicotine dependence, cigarettes, Consuelo Mann N.PLuis uncomplicated 03/17/2019 J30.9 Allergic rhinitis, unspecified Consuelo Mann N.P. 03/17/2019 J18.9 Pneumonia, unspecified organism Consuelo Mann N.P. 03/17/2019 H92.03 Otalgia, bilateral Consuelo Mann N.P. 03/17/2019 H10.022 Other mucopurulent conjunctivitis, left eye Consuelo Mann N.P. 03/17/2019 H10.45 Other chronic allergic conjunctivitis Consuelo Mann N.P. 03/17/2019 B37.0 Candidal stomatitis Consuelo Mann N.P. 03/17/2019 S22.000A Wedge compression fracture of unspecified Consuelo Mann N.PLuis thoracic vertebra, 03/17/2019 L89.312 Pressure ulcer of right buttock, stage 2 Consuelo Mann N.P. 03/17/2019 M54.17 Radiculopathy, lumbosacral region Consuelo Mann N.P. 03/17/2019 M54.31 Sciatica, right side Consuelo Mann N.P. 03/17/2019 M54.41 Lumbago with sciatica, right side Consuelo Mann, N.P. 03/17/2019 R53.83 Other fatigue Consuelo Mann, N.P. 03/17/2019 J02.9 Acute pharyngitis, unspecified Consuelo Mann N.P. 03/17/2019 I71.4 Abdominal aortic aneurysm, without rupture Consuelo Mann N.P. 03/17/2019 Z68.23 Body mass index (BMI) 23.0-23.9, adult Consuelo Mann N.P. 03/10/2019 I10 Essential (primary) hypertension Consuelo Mann N.P. 03/10/2019 E78.2 Mixed hyperlipidemia Consuelo Mann N.P. 03/10/2019 J44.9 Chronic obstructive pulmonary disease, Consuelo Mann N.P. unspecified 03/10/2019 I25.10 Atherosclerotic heart disease of [place] Consuelo Mann N.PLuis coronary artery with 03/10/2019 E55.9 Vitamin D deficiency, unspecified Consuelo Mann, N.P. 03/10/2019 N40.0 Benign prostatic hyperplasia without lower Consuelo Mann N.PLuis urinary tract sym 03/10/2019 K21.0 Gastro-esophageal reflux disease with Consuelo Mann N.PLuis esophagitis 03/10/2019 Z68.23 Body mass [...] with sciatica, right side Consuelo Mann N.P. 03/10/2019 R53.83 Other fatigue Consuelo Mann N.P. 03/10/2019 Z00.01 Encounter for general adult medical Romeo Richards.Deborah examination with abnorma 03/10/2019 J02.9 Acute pharyngitis, unspecified Consuelo Mann N.P. 03/10/2019 I71.4 Abdominal aortic aneurysm, without rupture Consuelo Mann N.P. 03/07/2019 I10 Essential (primary) hypertension Consuelo Mann N.P. 03/07/2019 E78.2 Mixed hyperlipidemia Consuelo Mann N.P. 03/07/2019 J44.9 Chronic obstructive pulmonary disease, Consuelo Mann, N.P. unspecified 03/07/2019 I25.10 Atherosclerotic heart disease of [place] Romeo Richards.Deborah coronary artery with 03/07/2019 E55.9 [...] N.PLuis 03/07/2019 R60.0 Localized edema Consuelo Mann N.P. 03/07/2019 E83.42 Hypomagnesemia Consuelo Mann N.PLuis 03/07/2019 R97.20 Elevated prostate specific antigen [PSA] Consuelo Mann N.P. 03/07/2019 M54.6 Pain in thoracic spine Consuelo Mann N.P. 03/07/2019 I87.2 Venous insufficiency (chronic) (peripheral) Consuelo Mann N.P. 03/07/2019 H10.403 Unspecified chronic conjunctivitis, bilateral Consuelo Mann N.P. 03/07/2019 H91.8x3 Other specified hearing loss, bilateral Consuelo Mann N.P. 03/07/2019 L20.9 Atopic dermatitis, unspecified Consuelo [...] N.P. 03/07/2019 B37.0 Candidal stomatitis Consuelo Mann N.PLuis 03/07/2019 S22.000A Wedge compression fracture of unspecified Consuelo Mann , N.P. thoracic vertebra, 03/07/2019 L89.312 Pressure ulcer of right buttock, stage 2 Consuelo Mann N.P. 03/07/2019 M54.17 Radiculopathy, lumbosacral region Consuelo Mann N.P. 03/07/2019 M54.31 Sciatica, right side Consuelo Mann N.P. 03/07/2019 M54.41 Lumbago with sciatica, right side Consuelo Mann, N.P. 02/07/2019 I10 Essential (primary) hypertension Consuelo Mann N.P. 02/07/2019 E78.2 Mixed hyperlipidemia Consuelo Mann N.P. 02/07/2019 J44.9 Chronic obstructive pulmonary disease, Consuelo Mann N.P. unspecified 02/07/2019 I25.10 Atherosclerotic heart disease of [place] Consuelo Mann N.PLuis coronary artery with 02/07/2019 [...] N.P. 02/07/2019 L20.9 Atopic dermatitis, unspecified Consuelo Mann, N.P. 02/07/2019 F17.210 Nicotine dependence, cigarettes, Consuelo Mann, N.P. uncomplicated 02/07/2019 J30.9 Allergic rhinitis, unspecified Consuelo Mann, N.P. 02/07/2019 J18.9 Pneumonia, unspecified organism Consuelo Mann, N.P. 02/07/2019 H92.03 Otalgia, bilateral Consuelo Mann, N.P. 02/07/2019 H10.022 Other mucopurulent conjunctivitis, left eye Consuelo Mann , N.P. 02/07/2019 H10.45 Other chronic allergic conjunctivitis Consuelo Mann, N.P. 02/07/2019 B37.0 Candidal stomatitis Consuelo Mann, N.P. 02/07/2019 S22.000A Wedge compression fracture of unspecified Consuelo Mann N.P. thoracic vertebra, Plan of Treatment Future Appointment(s):06/25/2019 1:00 pm - Consuelo Mann N.P. 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 THANK YOU. [address] [place] [id number] [phone] Zechariah Montes MD Closed [address] [place] [address] [phone]
--- NOTE | 2019-08-19 19:29 | ED ---
Complex/Multi-Sys Presentation - HPI Summary HPI Summary: Patient is a 79 y/o M who was discharged from [facility] yesterday, 08/18/19, w/ Dx of NSTEMI, PE, right DVT, and hemoptysis presenting today, 08/19/19, with complaints of rectal bleeding and hemoptysis. Patient was placed on Xarelto when he was discharged from [facility]. Upon leaving hospital, he states he felt "alright". He notes that he spit up minimal blood with sputum earlier today. He has since produced non-bloody sputum. Patient also notes that he had "minimal" amount of blood when wiping his rectal area. He was told that if he notes any bleeding at all to come to ED for evaluation. He also points out a bruise to his left upper arm. Abdominal pain, SOB are denied. On triage, pain is denied, nothing is noted to aggravate/alleviate Sx. Home medications and allergies are reviewed. - History Of Current Complaint Chief Complaint: EDGeneral Time Seen by Provider: 08/19/19 19:05 Hx Obtained From: Patient Timing: Intermittent, Lasting: Severity Currently: None - pain denied Aggravating Factor(s): nothing Alleviating Factor(s): nothing Associated Signs And Symptoms: Positive: Other - blood in sputum, rectal bleed, bruise. Negative: SOB, Abdominal Pain - Allergies/Home Medications Allergies/Adverse Reactions: Allergies Allergy/AdvReac Type Severity Reaction Status Date / Time Sulfa (Sulfonamide Allergy GI Upset Verified 03/12/19 10:46 Antibiotics) PMH/Surg Hx/FS Hx/Imm Hx Endocrine/Hematology History: Denies: Hx Diabetes, Hx Thyroid Disease, Hx Anemia Cardiovascular History: Reports: Hx Coronary Artery Disease, Hx Hypercholesterolemia, Hx Hypertension - ON MEDS, Hx Peripheral Vascular Disease - with recent surgery and stenting BLE Denies: Hx Deep Vein Thrombosis, Hx Pacemaker/ICD Respiratory History: Reports: Hx Chronic Obstructive Pulmonary Disease (COPD) - ON MEDS, Hx Pneumonia, Hx Seasonal Allergies, Other Respiratory Problems/ Disorders - RECENT PNEUMONIA Denies: Hx Asthma GI History: Reports: Hx Gastroesophageal Reflux Disease, Hx Gastrointestinal Bleed - recent rectal bleed, Hx Ulcer History: Denies: Hx Renal Disease Musculoskeletal History: Reports: Hx Arthritis, Hx Back Problems - disk issues, Other Musculoskeletal History - broken L arm 1944 Sensory History: Denies: Hx Contacts or Glasses, Hx Legally Blind, Hx Deafness, Hx Hearing Aid Opthamlomology History: Denies: Hx Contacts or Glasses, Hx Legally Blind Neurological History: Denies: Hx Headaches, Hx Migraine, Hx Transient Ischemic Attacks (TIA) Psychiatric History: Denies: Hx Panic Disorder - Surgical History Surgery Procedure, Year, and Place: CARDIAC STENT 1996. LEFT SHOULDER SURGERY 1997. ULCERS 1997 Infectious Disease History: No Infectious Disease History: Denies: Hx Clostridium Difficile, Hx Hepatitis, Hx Human Immunodeficiency Virus (HIV), Hx of Known/Suspected MRSA, Hx Shingles, Hx Tuberculosis, Hx Known/ Suspected VRE, Hx Known/Suspected VRSA, History Other Infectious Disease, Traveled Outside the [place] in Last 30 Days - Family History Known Family History: Positive: Cardiac Disease - Social History Alcohol Use: Rare Hx Substance Use: No Substance Use Type: Reports: None Hx Tobacco Use: Yes Smoking Status (MU): Former Smoker Type: Cigarettes Amount Used/How Often: 1PPD Length of Time of Smoking/Using Tobacco: 65YRS Have You Smoked in the Last Year: Yes Review of Systems Respiratory: Other - pos - bloody sputum production Negative: Shortness Of Breath Negative: Abdominal Pain Genitourinary: Other - pos - rectal bleed Positive: Bruising All Other Systems Reviewed And Are Negative: Yes Physical Exam - Summary Physical Exam Summary: Appearance: Well-appearing, Well-nourished, lying in bed comfortably Skin: Numerous ecchymotic areas of varying age noted. Warm, dry, no obvious rash Eyes: sclera anicteric, no conjunctival pallor ENT: mucous membranes moist, pharynx appears normal Neck: Supple, nontender Respiratory: Clear to auscultation, no signs of respiratory distress Cardiovascular: Irregularly irregular; Normal S1, S2. No murmurs. Normal distal pulses in tibial and radial bilaterally. Abdomen: Soft, nontender, normal active bowel sounds present Rectum: No external signs of bleeding, brown stool in rectum is noted. No gross blood noted. Musculoskeletal: Normal, Strength/ROM Intact Neurological: A&Ox3, awake and alert, mentation is normal, speech is fluent and appropriate Psychiatric: affect is normal, does not appear anxious or depressed Triage Information Reviewed: Yes Vital Signs On Initial Exam: Initial Vitals Temp Pulse Resp BP Pulse Ox 98.1 F 86 16 165/88 96 08/19/19 18:34 08/19/19 18:34 08/19/19 18:34 08/19/19 18:34 08/19/19 18:34 Vital Signs Reviewed: Yes Procedures - Sedation Patient Received Moderate/Deep Sedation with Procedure: No Diagnostics - Vital Signs Vital Signs Temp Pulse Resp BP Pulse Ox 08/19/19 18:41 102 23 96 08/19/19 18:39 91 165/88 91 08/19/19 18:34 98.1 F 86 16 165/88 96 - Laboratory Result Diagrams: 08/19/19 19:30 08/19/19 19:30 Lab Statement: Any lab studies that have been ordered have been reviewed, and results considered in the medical decision making process. Re-Evaluation - Re-Evaluation First Eval Re-Evaluation Time: 20:50 Comment: Initial report has been given to transfer center. Complex Multi-Symp Course/Dx Course Of Treatment: Patient is a 79 y/o M who was discharged from [facility] yesterday , 08/18/19, w/ Dx of NSTEMI, PE, right DVT, and hemoptysis presenting today, 08/19, with complaints of rectal bleeding and hemoptysis. Patient was placed on Xarelto when he was discharged from [facility]. Upon leaving hospital, he states he felt "alright". He notes that he spit up minimal blood with sputum earlier today. He has since produced non-bloody sputum. Patient also notes that he had "minimal" amount of blood when wiping his rectal area. He was told that if he notes any bleeding at all to come to ED for evaluation. He also points out a bruise to his left upper arm. Abdominal pain, SOB are denied. On physical exam, patient is noted to be irregularly irregular. There are ecchymotic areas of varying age. Rectum: No external signs of bleeding, brown stool in rectum is noted. No gross blood noted. This is a very complicated patient who has suffered a recent PE with RV strain that he is recovering from on NOAC. He has been home only a day and has had one episode of hemoptysis and one of BRBPR. These appear to have stopped and he is quite stable. However, he is at fairly high risk of bleeding complications and might be a good candidate for IVC filter and recover off of anticoagulants. In the past he has had fairly significant GI bleeding from a polyp as well as what sound like AVMs. After discussion with him and his family they would like to proceed with IVC filter. Unfortunately our interventional radiologist is away this week so I am contacting other facilities to see who can take him. 2106 - Patient's case was discussed with Kevan Cleary. Dr. Crabtree accepts for transfer, will call back with bed. - Diagnoses Provider Diagnoses: Pulmonary embolism, GI bleed, Hemoptysis - Physician Notifications Time Discussed With Above Provider: 21:07 Instructed by Provider To: Other - 2106 - Patient's case was discussed with Kevan Cleary. Dr. Crabtree accepts for transfer, will call back with bed. Discharge ED - Sign-Out/Discharge Documenting (check all that apply): Patient Departure - transfer - Discharge Plan Condition: Stable Disposition: TRANS HIGHER LVL OF CARE FAC Referrals: Mauricio Mann NP [Primary Care Provider] - - Billing Disposition and Condition Condition: STABLE Disposition: Trans Higher Lvl of Care Fac - Attestation Statements Document Initiated by Angelica: Yes Documenting Scribe: FLAKITA GALLARDO Provider For Whom Angelica is Documenting (Include Credential): GIANCARLO WEST MD Scribe Attestation: I, FLAKITA GALLARDO, scribed for GIANCARLO WEST MD on 08/19/19 at 2137. Scribe Documentation Reviewed: Yes Provider Attestation: The documentation as recorded by the FLAKITA rudolph accurately reflects the service I personally performed and the decisions made by me, GIANCARLO WEST MD Status of Scribe Document: Viewed
[2019-08-19 19:39] LABS: ABS Basophils 0.2 10^3/ul (0-0.2); ABS Lymphocytes 0.4 10^3/ul (1.0-4.8); ABS Monocytes 0.8 10^3/ul (0-0.8); ABS Neutrophils 15.2 10^3/ul (1.5-7.7); Hematocrit 34 % (42-52); Hemoglobin 10.9 g/dL (14.0-18.0); Lymphocyte % 2.5 %; Mean Corpuscular HGB Conc 32 g/dL (31-36); Mean Corpuscular Hemoglobin 27 pg (27-31); Mean Corpuscular Volume 84 fL (80-94); Mean Platelet Volume 7.4 fL (7.4-10.4); Platelet Count 357 10^3/uL (150-450); Red Blood Count 4.08 10^6 /uL (4.18-5.48); Red Cell Distribution Width 20 % (10-15); White Blood Count 16.6 10^3/uL (3.5-10.8)
[2019-08-19 19:56] LABS: BUN/Creatinine Ratio 25.7 (8-20); Calcium 8.7 mg/dL (8.6-10.3); EGFR African American 86.2 (>60); EGFR Non-African American 71.3 (>60); Potassium 4.1 mmol/L (3.5-5.0)
[2019-08-19 22:31] VITALS: BP 146/85
== END 2019-08-19 22:30 | disposition short-term general hospital (02) ==
LOC: ED 18:02
DX: I26.99 Other pulmonary embolism without acute cor pulmonale (principal); K92.2 Gastrointestinal hemorrhage, unspecified; R04.2 Hemoptysis; R23.3 Spontaneous ecchymoses; Z79.01 Long term (current) use of anticoagulants; I10 Essential (primary) hypertension; J44.9 Chronic obstructive pulmonary disease, unspecified; Z95.5 Presence of coronary angioplasty implant and graft; Z88.2 Allergy status to sulfonamides; Z87.891 Personal history of nicotine dependence
CPT/HCPCS: 36415; 80048; 82270; 85025; 99283

== ENCOUNTER 2019-09-07 17:32 | Inpatient (IN) | payer MEDICARE ==
--- NOTE | 2019-09-07 17:38 | ED ---
GI/ HPI - HPI Summary HPI Summary: 79 year old M arriving via EMS complains of rectal bleeding and black stools since today 09/07 AM. States that he feels "butterflies in his stomach." No abdominal pain. Hx frequent GI bleeds per daughter. Last GI bleed unknown. Never needed blood transfusion. Last colonoscopy unknown. Pain rated 0/10 in severity. Symptoms aggravated by nothing. Symptoms alleviated by nothing. Medications reviewed. Allergies noted. Usually on 3L nasal cannula oxygen at home. On anticoagulants. Unsure when INR last checked. Patient discharged several days ago after having "a filter placed" per daughter. - History of Current Complaint Time Seen by Provider: 09/07/19 17:33 Stated Complaint: RECTAL BLEED PER EMS Hx Obtained From: Patient, Family/Bone Grinder - daughter, EMS Onset/Duration: Started Hours Ago, Still Present Timing: Intermittent Current Severity: None Aggravating Factor(s): Nothing Alleviating Factor(s): Nothing - Additional Pertinent History Primary Care Physician: KADEN - Allergy/Home Medications Allergies/Adverse Reactions: Allergies Allergy/AdvReac Type Severity Reaction Status Date / Time Sulfa (Sulfonamide Allergy GI Upset Verified 03/12/19 10:46 Antibiotics) PMH/Surg Hx/FS Hx/Imm Hx Endocrine/Hematology History: Denies: Hx Diabetes, Hx Thyroid Disease, Hx Anemia Cardiovascular History: Reports: Hx Coronary Artery Disease, Hx Hypercholesterolemia, Hx Hypertension - ON MEDS, Hx Peripheral Vascular Disease - with recent surgery and stenting BLE Denies: Hx Deep Vein Thrombosis, Hx Pacemaker/ICD Respiratory History: Reports: Hx Chronic Obstructive Pulmonary Disease (COPD) - ON MEDS, Hx Pneumonia, Hx Seasonal Allergies, Other Respiratory Problems/ Disorders - RECENT PNEUMONIA Denies: Hx Asthma GI History: Reports: Hx Gastroesophageal Reflux Disease, Hx Gastrointestinal Bleed - recent rectal bleed, Hx Ulcer History: Denies: Hx Renal Disease Musculoskeletal History: Reports: Hx Arthritis, Hx Back Problems - disk issues, Other Musculoskeletal History - broken L arm 1944 Sensory History: Denies: Hx Contacts or Glasses, Hx Legally Blind, Hx Deafness, Hx Hearing Aid Opthamlomology History: Denies: Hx Contacts or Glasses, Hx Legally Blind Neurological History: Denies: Hx Headaches, Hx Migraine, Hx Transient Ischemic Attacks (TIA) Psychiatric History: Denies: Hx Panic Disorder - Surgical History Surgery Procedure, Year, and Place: CARDIAC STENT 1996. LEFT SHOULDER SURGERY 1997. ULCERS 1998 Infectious Disease History: Denies: Hx Clostridium Difficile, Hx Hepatitis, Hx Human Immunodeficiency Virus (HIV), Hx of Known/Suspected MRSA, Hx Shingles, Hx Tuberculosis, Hx Known/ Suspected VRE, Hx Known/Suspected VRSA, History Other Infectious Disease - Family History Known Family History: Positive: Cardiac Disease - Social History Alcohol Use: Rare Hx Substance Use: No Substance Use Type: Reports: None Hx Tobacco Use: Yes Smoking Status (MU): Former Smoker Type: Cigarettes Amount Used/How Often: 1PPD Length of Time of Smoking/Using Tobacco: 65YRS Have You Smoked in the Last Year: Yes Review of Systems Positive: Other - rectal bleeding, black stools. Negative: Abdominal Pain Neurological: Negative - light headedness, dizziness All Other Systems Reviewed And Are Negative: Yes Physical Exam - Summary Physical Exam Summary: Constitutional: Well-developed, Well-nourished, Alert. (-) Distressed Skin: Warm, Dry HENT: Normocephalic; Atraumatic Eyes: Conjunctiva normal Neck: Musculoskeletal ROM normal neck. (-) JVD, (-) Stridor, (-) Tracheal deviation Cardio: Rhythm regular, rate normal, Heart sounds normal; Intact distal pulses; Radial pulses are 2+ and symmetric. (-) Murmur Pulmonary/Chest wall: Effort normal. (-) Respiratory distress, (-) Wheezes, (-) Rales Abd: Soft, (-) tenderness, (-) Distension, (-) Guarding, (-) Rebound Rectal exam: Black stools on JULITO. Musculoskeletal: (-) Edema Lymph: (-) Cervical adenopathy Neuro: Alert, Oriented x3 Psych: Mood and affect Normal Triage Information Reviewed: Yes Vital Signs Reviewed: Yes Procedures - Sedation Patient Received Moderate/Deep Sedation with Procedure: No Diagnostics - Laboratory Result Diagrams: 09/07/19 17:49 09/07/19 17:49 Lab Statement: Any lab studies that have been ordered have been reviewed, and results considered in the medical decision making process. GIGU Course/Dx - Course Course Of Treatment: Patient is here with a large melanotic stool. Patient's heel stable. Patient is on Zarrella toe. Patient had obvious melena on JULITO. Patient's hemoglobin dropped 2 points in the past month. 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 Patient had an EGD at that time which was negative as well. Given patient's blood thinner use and bleeding, patient is admitted to the hospitalist. 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 - Physician Notifications Discussed Care Of Patient With: Mal Gan Time Discussed With Above Provider: 18:17 Discharge ED - Sign-Out/Discharge Documenting (check all that apply): Patient Departure - Discharge Plan Condition: Stable Disposition: ADMITTED TO [facility] Referrals: Mauricio Mann NP [Primary Care Provider] - - Billing Disposition and Condition Condition: STABLE Disposition: Admitted to [facility] - Attestation Statements Document Initiated by Angelica: Yes Documenting Scribe: Jossy Kauffman Provider For Whom Angelica is Documenting (Include Credential): Daniel Copeland MD Scribe Attestation: Jossy Lee, scribed for Daniel Copeland MD on 09/07/19 at 1836. Scribe Documentation Reviewed: Yes Provider Attestation: The documentation as recorded by the mashaibJossy gaviria accurately reflects the service I personally performed and the decisions made by , Daniel Copeland MD Status of Scribkhadra Document: Viewed
--- OUTSIDE RECORDS SUMMARY | 2019-09-07 17:45 | XMS REPORT ---
:1940 Author Organization [facility] Care Team Providers Name Role Phone Unavailable Unavailable Unavailable Problems Condition Condition Condition Status Onset Resolution Last Treating Comments Name Details Category Date Date Treatment Clinician Date Non-ST Non-ST Diagnosis Active 2018-09 CHOLO elevation elevation 2-03 MOROSDORENE (NSTEMI) (NSTEMI) #102347 myocardial myocardial infarction infarction Pain frequent Pain Mgmt Active 2018-09 Mervat pain 2-12 (Dell) 10:30: [id number] Cardio edema Cardiovasc Active 2018-09 Mervat ular 2-12 (Dell) 10:30: [id number] Respiratory dyspnea Respirator Active 2018-09 Mervat present y 2-12 (Dell) 10:30: [id number] Respiratory oxygen Respirator Active 2018-09 Mervat treatments y 2-12 (Dell) in home 10:30: [id number] Endo/Alejandro anti-coagul Endo/Alejandro Active 2018-09 Mervat ation 2-12 (Dell) therapy 10:30: [id number] Integument skin Integument Active 2018-09 Mervat integrity 2-12 (Dell) risk 10:30: [id number] Nutrition nutritional Nutrition Active 2018-09 Mervat restriction 2-12 (Dell) s 10:30: [id number] Elimination urinary Eliminatio Active 2018-09 Mervat incontinenc n 2-12 (Dell) e 10:30: [id number] Elimination bowel Eliminatio Active 2018-09 Mervat incontinenc n 2-12 (Dell) e 10:30: [id number] Neuro confusion Neuro/Emot Active 2018-09 Mervat present ion 2-12 (Dell) 10:30: [id number] Neuro anxiety Neuro/Emot Active 2018-09 Mervat present ion 2-12 (Dell) 10:30: [id number] Neuro impaired Neuro/Emot Active 2018-09 Mervat decision-ma ion 2-12 (Dell) iva 10:30: [id number] Activity ADL Activity Active 2018-09 Mervat assistance 2-12 (Dell) required 10:30: [id number] Activity self-care Activity Active 2018-09 Mervat deficit 2-12 (Dell) 10:30: [id number] Safety fall risk Safety Active 2018-09 Mervat factor 2-12 (Dell) present 10:30: [id number] Safety risk for Safety Active 2018-09 Mervat hospitaliza 2-12 (Dell) tion 10:30: [id number] Safety can be left Safety Active 2018-09 Mervat alone for 2-12 (Dell) only short 10:30: Newell periods [id number] Medication oral med Meds Active 2018-09 Mervat assistance 2-12 (Dell) required 10:30: [id number] Medication potential Meds Active 2018-09 Mervat clinically 2-12 (Dell) significant 10:30: Newell medication [id number] issue Musculoskel transfer Musculoske Active 2018-09 Mervat etal assistance letal 2-12 (Dell) required 10:30: Newell [id number] Musculoskel requires Musculoske Active 2018-09 Mrevat etal human letal 2-12 (Dell) assist to 10:30: Newell leave home [id number] Allergies, Adverse Reactions, Alerts Allergy Allergy Status Severity Reaction(s) Onset Inactive Treating Comments Name Type Date Date Clinician Sulfa Allergen Active Unknown Nausea and 2019-08 Tere Beam (Sulfonam Group vomiting -03 joe Antibioti cs) Medications Ordered Filled Start Stop Current Ordering Indication Dosage Frequency Signature Comments Components Medication Medication Date Date Medication? Clinician (SIG) Name Name amLODIPine amLODIPine 2018-09 Yes Ck Unknown Unknown 5 mg tablet 5 mg tablet 2-12 Gal SAVAGE Aspirin Low Aspirin Low 2018-09 Yes Ck Unknown Unknown Dose 81 mg Dose 81 mg 2-12 Gal SAVAGE tablet,jesika tablet,jesika yed release yed release cyanocobala cyanocobala 2018-09 Yes Ck Unknown Unknown min (vit min (vit 2-12 Gal SAVAGE B-12) 1,000 B-12) 1,000 mcg tablet mcg tablet ferrous ferrous 2018-09 Yes Ck Unknown Unknown sulfate 325 sulfate 325 2-12 Gal SAVAGE mg (65 mg mg (65 mg iron) iron) tablet,jesika tablet,jesika yed release yed release isosorbide isosorbide 2018-09 Yes Ck Unknown Unknown dinitrate dinitrate 2-12 Gal SAVAGE 30 mg 30 mg tablet tablet metoprolol metoprolol 2018-09 Yes Ck Unknown Unknown tartrate 50 tartrate 50 2- Gal SAVAGE mg tablet mg tablet nitroglycer nitroglycer 2018-09 Yes Ck Unknown Unknown in 0.4 mg in 0.4 mg 2 Gal SAVAGE sublingual sublingual tablet tablet pantoprazol pantoprazol 2018-09 Yes Ck Unknown Unknown e 40 mg e 40 mg 2- Gal SAVAGE tablet,jesika tablet,jesika yed release yed release predniSONE predniSONE 2018-09 Yes Ck Unknown Unknown 10 mg 10 mg 2-12 Gal SAVAGE tablet tablet Xarelto 15 Xarelto 15 2018-09 Yes Ck Unknown Unknown mg tablet mg tablet 11-01 Gal SAVAGE LORazepam LORazepam 2018-09 Yes Ck Unknown Unknown 0.5 mg 0.5 mg 2- Gal SAVAGE tablet tablet HYDROcodone HYDROcodone 2018-09 Yes Ck Unknown Unknown 7.5 7.5 2-12 Gal SAVAGE mg-acetamin mg-acetamin ophen 325 ophen 325 mg tablet mg tablet furosemide furosemide 2018-09 Yes Ck Unknown Unknown 20 mg 20 mg 2-12 Gal SAVAGE tablet tablet simvastatin simvastatin 2018-09 Yes Ck Unknown Unknown 40 mg 40 mg 2-12 Gal SAVAGE tablet tablet Combivent Combivent 2018-09 Yes Ck Unknown Unknown Respimat 20 Respimat 20 2-12 Gal SAVAGE mcg-100 mcg-100 mcg/actuati mcg/actuati on solution on solution for for inhalation inhalation Stiolto Stiolto 2018-09 Yes Ck Unknown Unknown Respimat Respimat 2-12 Gal SAVAGE 2.5 mcg-2.5 2.5 mcg-2.5 mcg/actuati mcg/actuati on solution on solution for for inhalation inhalation Mucinex 600 Mucinex 600 2018-09 Yes Ck Unknown Unknown mg tablet, mg tablet, 2-12 Gal SAVAGE extended extended release release ipratropium ipratropium 2018-09 Yes Ck Unknown Unknown -albuterol -albuterol 2-12 Gal SAVAGE 0.5 mg-3 0.5 mg-3 mg(2.5 mg mg(2.5 mg base)/3 mL base)/3 mL nebulizatio nebulizatio n soln n soln oxygen oxygen 2018-09 Yes Ck Unknown Unknown 2-12 Gal SAVAGE Vital Signs Vital Name Observation Time Observation Value Comments SYSTOLIC mm[Hg] 2019-09-01 18:09:23 140 mm[Hg] mm[Hg] Method: Sit SYSTOLIC mm[Hg] 2019-09-01 18:09:23 138 mm[Hg] mm[Hg] Method: Stand DIASTOLIC mm[Hg] 2019-09-01 18:09:23 82 mm[Hg] mm[Hg] Method: Sit DIASTOLIC mm[Hg] 2019-09-01 18:09:23 72 mm[Hg] mm[Hg] Method: Stand PULSE 2019-09-01 18:09:23 78 /min /min RESP RATE 2019-09-01 18:09:23 15 /min /min TEMP 2019-09-01 18:09:23 98.6 [degF] Procedures This patient has no known procedures. Plan of Care Planned Activity Planned Date Details Comments Medication 2019-09-08 Xarelto 20 mg tablet [code = [id number]] Results This patient has no known results.
--- OUTSIDE RECORDS SUMMARY | 2019-09-07 17:45 | XMS REPORT | Continuity of Care Document ---
:1940 External Reference #:[id number] Author Name Jesus Shi Address [address] [place] [address] Problems Active Problems Provider Date Essential hypertension Yudi Moura Onset: 06/22/2015 Hearing loss Yudi Moura Onset: 05/10/2015 Chronic conjunctivitis Yudi Moura Onset: 03/29/2015 Osteoarthritis Yudi Moura Onset: 10/03/2012 Chronic obstructive lung disease Yudi Moura Onset: 10/03/2012 Allergic rhinitis Yudi Moura Onset: 01/16/2012 After-cataract with vision obscured following extraction Yudi Moura Onset: of cataract Benign essential hypertension Yudi Moura Onset: 01/15/2012 Mixed hyperlipidemia Yudi Moura Onset: 01/15/2012 Benign prostatic hypertrophy without outflow obstruction Yudi Moura Onset: Low back pain Yudi Moura Onset: 01/15/2012 Peptic reflux disease Yudi Moura Onset: 01/15/2012 Social History Type Date Description Comments Sex Unknown Tobacco Use Start: Unknown End: Unknown Patient is a former smoker Smoking Status Reviewed: 06/02/19 Patient is a former smoker Allergies, Adverse Reactions, Alerts Active Allergies Reaction Severity Comments Date Tobramycin 10/07/2014 Sulfa Antibiotics 07/19/2012 Medications Active Medications SIG Qnty Indications Ordering Provider Date Omeprazole 1 by mouth every 90caps Unknown 01/16/2012 20mg day as needed Capsules Aspir-81 1 by mouth every Yudi Moura 01/16/2012 81mg Tablets morning Clopidogrel Bisulfate Unknown 75mg Tablets Tamsulosin HCL Unknown 0.4mg Capsules Combivent Respimat Yudi Moura 20-100mcg/Act Aerosol Albuterol Sulfate Júnior Mann PA (2.5mg/3ML) 0.083% Nebulizer Simvastatin take 1 tablet by Unknown 40mg mouth at bedtime Tablets Metoprolol Succinate 1 by mouth every Unknown ER day 50mg Tablets ER 24HR Ipratropium [place] Unknown 0.03% Solution Immunizations Description No Information Available Vital Signs Date Vital Result Comment 06/02/2019 9:28am Height 68 inches 5'8" Weight 159.00 lb BP Systolic 132 mmHg BP Diastolic 75 mmHg Heart Rate 100 /min BMI (Body Mass Index) 24.2 kg/m2 07/12/2016 3:07pm Height 68 inches 5'8" Weight 160.00 lb BMI (Body Mass Index) 24.3 kg/m2 Results Test Acquired Date Facility Test Result H/L Range Note CBC Auto Diff 07/28/2019 [facility] White Blood 15.3 10^3/uL High 3.5-10.8 Count Red Blood Count 5.00 10^6/uL Normal [...] % Nucleated Red Blood Cells % 0.1 Iron & Iron Binding Capacity 07/28/2019 [facility] Iron 43 g/dL Low 50-212 Unsaturated Iron Binding < 331 g/dL Total Iron Binding Capacity 346 g/dL Normal 250-450 Transferrin 247 mg/dL Normal 203-362 % Iron Saturation 12 % Low 15-55 Laboratory test finding 07/28/2019 [facility] Ferritin 36.9 ng/mL Normal 24-336 Folic Acid (Folate) > 20.00 ng/mL >3.99 Vitamin B12 270 pg/mL Normal 180-914 1 Protein Electrophoresis 07/28/2019 [facility] Total Protein(Pep) 6.8 g/dL 6.3 - 7.9 Albumin 3.3 g/dL Abnormal 3.4-4.7 Alpha-1 Globulin 0.3 g/dL 0.1-0.3 Alpha-2 Globulin 1.0 g/dL 0.6-1.0 Beta Globulin 1.1 g/dL 0.7-1.2 Gamma Globulin 1.2 g/dL 0.6-1.6 Albumin/Globulin Ratio 0.93 Impression See Comment 2 CBC Auto Diff 06/02/2019 [facility] White Blood Count 11.8 10^3/uL High 3.5- 10.8 Red Blood Count 3.45 10^6/uL Low 4.18-5.48 Hemoglobin 10.8 g/dL Low 14.0-18.0 Hematocrit 33 % Low 42-52 Mean Corpuscular Volume 96 fL High 80-94 Mean Corpuscular Hemoglobin 32 pg High 27-31 Mean Corpuscular HGB Conc 33 g/dL Normal 31-36 Red Cell Distribution Width 15 % Normal 10-15 Platelet Count 503 10^3/uL High 150-450 Mean Platelet Volume 6.7 fL Low 7.4-10.4 Abs Neutrophils 8.5 10^3/uL High 1.5-7.7 Abs Lymphocytes 1.1 10^3/uL Normal 1.0-4.8 Abs Monocytes 2.0 10^3/uL High 0-0.8 Abs Eosinophils 0.1 10^3/uL Normal 0-0.6 Abs Basophils 0.1 10^3/uL Normal 0-0.2 Abs Nucleated RBC 0.0 10^3/uL Granulocyte % 72.3 % Lymphocyte % 9.0 % Monocyte % 17.2 % Eosinophil % 0.9 % Basophil % 0.6 % Nucleated Red Blood Cells % 0.0 Xray 05/16/2019 [facility] Radiology Chest Ap Or Port <pending> Laboratory test 05/15/2019 [facility] Surgical SEE RESULT BELOW 3 finding Pathology Order CBC W/Auto 05/15/2019 [facility] White Blood Count <pending> Differential(!) Ser Auto CNT RBC Red Blood Count <pending> Hemoglobin Blood <pending> Hematocrit <pending> MCV (Corpuscular Volume) <pending> MCH (Corpuscular Hemoglobin) <pending> MCHC (Corpuscular Hemog Conc) <pending> RDW <pending> Platelet Count Blood Auto CNT <pending> MPV <pending> Lymph% <pending> [place]% <pending> Neutrophil % <pending> Absolute Lymphocytes <pending> Absolute Monocytes <pending> Absolute Neutrophils <pending> Laboratory test 05/14/2019 [facility] Surgical SEE RESULT 4 finding Pathology Order BELOW Laboratory test 05/14/2019 [facility] Lactic Acid <pending> finding Ser/Plas Mol/Vol BMP W/O Egfr(!) 05/14/2019 [facility] Sodium(!) <pending> 134-1 [address] [facility] mEq/L [address] [place] [address] [phone] Potassium(!) <pending> mEq/L 3.6-5.5 Chloride Serum/Plasma(!) <pending> mEq/L 94-112 Carbon Dioxide Ser/Plasm(!) <pending> mEq/L 21-33 BUN - Urea Nitrogen(!) <pending> mg/dL 6-24 Calcium Ser/Plasma Mass/Vol(!) <pending> mg/dL 8.6-10.2 Creatinine Serum Mass/Vol(!) <pending> mg/dL 0.5-1.4 Glucose Serum(!) <pending> mg/dL 70-105 Liver 05/14/2019 [facility] Albumin <pending> 3.5-5.2 [address] Serum/Plasma(!) g/dL Panel(!) [place] [address] [phone] Alkaline Phosphatase(!) <pending> U/L 39-117 Bilirubin Direct Mass/Vol(!) <pending> mg/dL 0.0-0.6 Bilirubin Total Mass/Vol(!) <pending> mg/dL 0.2-1.3 Ast - Sgot <pending> U/L 5-34 Alt - SGPT <pending> U/L 10-40 Protein, Total(!) <pending> g/dL 6.2-8.1 Laboratory test 05/14/2019 [facility] Inr(!) <pending> finding CBC W/Auto 05/14/2019 [facility] White Blood Count <pending> Differential(!) Ser Auto CNT RBC Red Blood Count <pending> Hemoglobin Blood <pending> Hematocrit <pending> MCV (Corpuscular Volume) <pending> MCH (Corpuscular Hemoglobin) <pending> MCHC (Corpuscular Hemog Conc) <pending> RDW <pending> Platelet Count Blood Auto CNT <pending> MPV <pending> Lymph% <pending> [place]% <pending> Neutrophil % <pending> Absolute Lymphocytes <pending> Absolute Monocytes <pending> Absolute Neutrophils <pending> Laboratory test 05/13/2019 [facility] Vitamin B12 Ser <pending> finding Mass/Vol Laboratory test 05/13/2019 [facility] Lactic Acid <pending> finding Ser/Plas Mass/Vol CMP(!) 05/13/2019 [facility] Sodium(!) <pending> Potassium(!) <pending> Chloride Serum/Plasma(!) <pending> Carbon Dioxide Ser/Plasm(!) <pending> BUN - Urea Nitrogen(!) <pending> Calcium Ser/Plasma Mass/Vol(!) <pending> Creatinine Serum Mass/Vol(!) <pending> Glucose Serum(!) <pending> BUN/Creatinine Ratio(!) <pending> Albumin Serum/Plasma(!) <pending> Alkaline Phosphatase(!) <pending> Bilirubin Total Mass/Vol(!) <pending> Ast - Sgot <pending> Alt - SGPT <pending> Protein Total <pending> CBC W/Auto 05/13/2019 [facility] White Blood <pending> Differential(!) Count Ser Auto CNT RBC Red Blood Count <pending> Hemoglobin Blood <pending> Hematocrit <pending> MCV (Corpuscular Volume) <pending> MCH (Corpuscular Hemoglobin) <pending> MCHC (Corpuscular Hemog Conc) <pending> RDW <pending> Platelet Count Blood Auto CNT <pending> MPV <pending> Lymph% <pending> [place]% <pending> Neutrophil % <pending> Absolute Lymphocytes <pending> Absolute Monocytes <pending> Absolute Neutrophils <pending> 1 Normal Range 180 to 914 Indeterminate Range 145 to 180 Deficient Range <145 2 RESULT: No apparent monoclonal protein on serum electrophoresis. Test Performed by: [facility] [address] [place] [address] [employer] Operator: Mauricio Mayes M.D. Ph.D.; CLIA# [id number] 3 SEE RESULT BELOW Name: RAIN SANCHEZ : [address]: Una Swann MD Acct: [id number] Unit: [id number] AGE: 79 Location: [place] [address] Re05/13/19 SEX: M Status: ADM IN SPEC: [id number] KRISTI: 05/15/[address] [facility] DR: Jesus Shi DO REQ: [id number] RECD: 05/15/19462 STATUS: ESTEBAN VALLDAARES DR: Gal Swann MD _ ORDERED: LEVEL [...] CONTINUED ON NEXT PAGE DEPARTMENT OF PATHOLOGY, [address] [place] [address] Abraham Cat M.D. Director [facility] # [id number] RUN DATE: 05/16/19 [facility] LAB LIVE PAGE 2 Patient: RAIN SANCHEZ [id number] (Continued) GROSS DESCRIPTION (Continued) Signed by and Reported on: Skyla Parr MD 05/16/19 1450 END OF REPORT DEPARTMENT OF PATHOLOGY, [address] [place] [address] Abraham Cat M.D. Director [facility] # [id number] 4 SEE RESULT BELOW Name: RAIN SANCHEZ : [address]: Una Swann MD Acct: [id number] Unit: [id number] AGE: 79 Location: [place] [address]- Re05/13/19 SEX: M Status: ADM IN SPEC: [id number] KRISTI: 05/14/19- SUBM DR: Magnolia Mon MD REQ: [id number] RECD: 05/14/19 STATUS: ESTEBAN VALLADARES DR: Dung Mann [employer] _ ORDERED: LEVEL 4 FINAL DIAGNOSIS Stomach, [...] 1325 END OF REPORT DEPARTMENT OF PATHOLOGY, [address] [place] [address] Abraham Cat M.D. Director [facility] # [id number] Procedures Date Code Description Status 05/15/2019 35972 Colonoscopy W/ Ablation Of Tumor/Polyps/Lesion Inc. 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) 06/02/2019 J44.9 Chronic obstructive pulmonary disease, Jesus Shi, unspecified 06/02/2019 I48.2 Chronic atrial fibrillation Jesus Shi, DO 06/02/2019 I25.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
--- OUTSIDE RECORDS SUMMARY | 2019-09-07 17:45 | XMS REPORT ---
:1940 Author Organization [facility] Care Team Providers Name Role Phone Unavailable Unavailable Unavailable Problems Condition Condition Condition Status Onset Resolution Last Treating Comments Name Details Category Date Date Treatment Clinician Date Non-ST Non-ST Diagnosis Active 2018-09 CHOLO elevation elevation 2-03 REEDSVILLESDORENE (NSTEMI) (NSTEMI) #959740 myocardial myocardial infarction infarction Pain frequent Pain Mgmt Active 2018-09 Mervat pain 2-12 ([place]ell) 10:30: [id number] Cardio edema Cardiovasc Active 2018-09 Mervat ular 2-12 (Dell) 10:30: [id number] Respiratory dyspnea Respirator Active 2018-09 Mervat present y 2-12 (Dell) 10:30: [id number] Respiratory oxygen Respirator Active 2018-09 Mervat treatments y 2-12 (Dell) in home 10:30: [id number] Endo/Alejandro anti-coagul Endo/Alejandro Active 2018-09 Mervat ation 2-12 (Dell) therapy 10:30: [id number] Integument skin Integument Active 2018-09 Mervat integrity 2-12 (Dell) risk 10:30: [id number] Nutrition nutritional Nutrition Active 2018-09 Mervat restriction 2-12 (Dell) s 10:30: [id number] Elimination urinary Eliminatio Active 2018-09 Mervat incontinenc n 2-12 (Dell) e 10:30: [id number] Elimination bowel Eliminatio Active 2018-09 Mervat incontinenc n 2-12 (Dell) e 10:30: [id number] Neuro confusion Neuro/Emot Active 2018-09 Mervat present ion 2-12 (Dell) 10:30: [id number] Neuro anxiety Neuro/Emot Active 2018-09 Mervat present ion 2-12 (Dell) 10:30: [place] [id number] Neuro impaired Neuro/Emot Active 2018-09 Mervat decision-ma ion 2-12 (Dell) iva 10:30: [place]ell [id number] Activity ADL Activity Active 2018-09 Mervat assistance 2-12 (Dell) required 10:30: [place]ell [id number] Activity self-care Activity Active 2018-09 Mervat deficit 2-12 (Dell) 10:30: [id number] Safety fall risk Safety Active 2018-09 Mervat factor 2-12 (Dell) present 10:30: [id number] Safety risk for Safety Active 2018-09 Mervat hospitaliza 2-12 (Dell) tion 10:30: [place] [id number] Safety can be left Safety Active 2018-09 Mervat alone for 2-12 (Dell) only short 10:30: Newell [id number] Medication oral med Meds Active 2018-09 Mervat assistance 2-12 (Dell) required 10:30: [place] [id number] Medication potential Meds Active 2018-09 Mervat clinically 2-12 (Dell) significant 10:30: [place]ell medication [id number] issue Musculoskel transfer Musculoske Active 2018-09 Mervat etal assistance letal 2-12 (Dell) required 10:30: [place]ell [id number] Musculoskel requires Musculoske Active 2018-09 Mervat etal human letal 2-12 (Dell) assist to 10:30: Newell leave home [id number] Cardio hypertensio Cardiovasc Active 2018-09 CHOLO n ular 2-18 [place] 10:30: #[id number] Respiratory lung sounds Respirator Active 2018-09 CHOLO deficit y 2-18 [place] 10:30: #[id number] Allergies, Adverse Reactions, Alerts Allergy Allergy Status [...] Unknown Dose 81 mg Dose 81 mg 10-29 Gal SAVAGE tablet,jesika tablet,jesika yed release yed release cyanocobala cyanocobala 2018-09 Yes Ck Unknown Unknown min (vit min (vit - Gal SAVAGE B-12) 1,000 B-12) 1,000 mcg tablet mcg tablet ferrous ferrous 2018-09 Yes Ck Unknown Unknown sulfate 325 sulfate 325 10-29-18 Gal SAVAGE mg (65 mg mg (65 mg iron) iron) tablet,jesika tablet,jesika yed release yed release isosorbide isosorbide 2018-09 Yes Ck Unknown Unknown dinitrate dinitrate 10-29 Gal SAVAGE 30 mg 30 mg tablet tablet metoprolol metoprolol 2018-09 Yes Ck Unknown Unknown tartrate 50 tartrate 50 10-29 Gal SAVAGE mg tablet mg tablet nitroglycer nitroglycer 2018-09 Yes Ck Unknown Unknown in 0.4 mg in 0.4 mg 10-29 Gal SAVAGE sublingual sublingual tablet tablet pantoprazol pantoprazol 2018-09 Yes Ck Unknown Unknown e 40 mg e 40 mg 10-29 Gal SAVAGE tablet,jesika tablet,jesika yed release yed release predniSONE predniSONE 2018-09 Yes Ck Unknown Unknown 10 mg 10 mg 10-29-16 Gal SAVAGE tablet tablet Xarelto 15 Xarelto 15 2018-09 Yes Ck Unknown Unknown mg tablet mg tablet 11-01- Gal SAVAGE LORazepam LORazepam 2018-09 Yes Ck Unknown Unknown 0.5 mg 0.5 mg 10-29 Gal SAVAGE tablet tablet HYDROcodone HYDROcodone 2018-09 Yes Ck Unknown Unknown 7.5 7.5 10-29 Gal SAVAGE mg-acetamin mg-acetamin ophen 325 ophen 325 mg tablet mg tablet furosemide furosemide 2018-09 Yes Ck Unknown Unknown 20 mg 20 mg 2- Gal SAVAGE tablet tablet simvastatin simvastatin 2018-09 Yes Ck Unknown Unknown 40 mg 40 mg - Gal SAVAGE tablet tablet Combivent Combivent 2018-09 [...] Yes Ck Unknown Unknown 2-12 Gal SAVAGE ferrous ferrous 2018-09 Yes Ck Unknown Unknown sulfate 325 sulfate 325 2-18 Gal SAVAGE mg (65 mg mg (65 mg iron) iron) tablet,jesika tablet,jesika yed release yed release Vital Signs Vital Name Observation Time Observation Value Comments SYSTOLIC mm[Hg] 2019-09-03 18:09:25 148 mm[Hg] mm[Hg] Method: Sit SYSTOLIC mm[Hg] 2019-09-01 18:09:23 138 mm[Hg] mm[Hg] Method: Stand DIASTOLIC mm[Hg] 2019-09-03 18:09:25 74 mm[Hg] mm[Hg] Method: Sit DIASTOLIC mm[Hg] 2019-09-01 18:09:23 72 mm[Hg] mm[Hg] Method: Stand PULSE 2019-09-03 18:09:25 71 /min /min RESP RATE 2019-09-03 18:09:25 16 /min /min TEMP 2019-09-03 18:09:25 99.9 [degF] Procedures This patient has no known procedures. Plan of Care Planned Activity Planned Date Details Comments Medication 2019-09-08 Xarelto 20 mg tablet [code = [id number]] Results This patient has no known results.
--- OUTSIDE RECORDS SUMMARY | 2019-09-07 17:45 | XMS REPORT | Continuity of Care Document ---
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 Problems Description No Information Available Social History Type Date Description Comments Sex Unknown ETOH Use Currently consumes alcohol 2 drinks Recreational Drug Use Denies Drug Use Tobacco Use Start: Unknown End: Patient is a former smoker Unknown Smoking Status Reviewed: 09/01/19 Patient is a former smoker Exercise Type/Frequency Does not exercise Allergies, Adverse Reactions, Alerts Active Allergies Reaction Severity Comments Date Sulfa Drugs 04/20/2014 Tobramycin 03/28/2019 Inactive Allergies NKDA 04/24/2014 Medications Active Medications SIG Qnty Indications Ordering Date Provider Prednisone 1 tab qd 21tabs Other Ordering 09/01/2019 5mg Tablets Provider Stiolto Respimat 1 puff by mouth 12gm Other Ordering 07/08/2019 twice a day Provider 2.5-2.5mcg/Act Aerosol Furosemide 1 by mouth every Unknown 20mg Tablets day- take for one week starting aug 25 Xarelto 1 by mouth two Unknown 15mg Tablets times a day Potassium Chloride ER 1 by mouth every Unknown day 20Meq Tablets ER Pantoprazole Sodium 1 by mouth every Unknown 40mg day Tablets DR Ferrous Sulfate 1 by mouth every Unknown 325(65Fe) day mg Tablets Cyanocobalamin 1000MG 1 dialy Unknown Aspir-Low 1 by mouth every Unknown 81mg Tablets DR day Amlodipine Besylate 1 by mouth every Unknown 5mg day Tablets Clopidogrel Bisulfate 1 by mouth every Unknown day 75mg Tablets Albuterol Sulfate 1 unit dose via Unknown nebulizer every 4 (2.5mg/3ML) 0.083% hours as needed Nebulizer Combivent Respimat inhale 1 puff by Unknown mouth 4-6 times 20-100mcg/Act Aerosol daily as needed Metoprolol Tartrate 1 by mouth once a 180tabs Unknown 50mg day Tablets Simvastatin 1 by mouth every Unknown 40mg Tablets night at bedtime Omeprazole 1 by mouth every 90caps Unknown 20mg Capsules day DR History Medications Prednisone 2 tablets day one 9tabs Other Ordering 07/08/2019 - 20mg Tablets and two, 1 tablet Provider 08/29/2019 day 3,4,5, then one half tablet day 6,7,8 and 9 Medications Administered in Office Medication SIG Qnty [...] Available Vital Signs Date Vital Result Comment 09/01/2019 11:05am Height 67 inches 5'7" Weight 161.00 lb Heart Rate 73 /min BP Systolic 130 mmHg BP Diastolic 66 mmHg O2 % BldC Oximetry 92 % BMI (Body Mass Index) 25.2 kg/m2 08/27/2019 9:02am Height 67 inches 5'7" Weight 163.00 lb w/ shoes and portable oxygen device Heart Rate 86 /min R radial, irregular BP Systolic 122 mmHg R regular, sitting BP Diastolic 60 mmHg R regular, sitting BP Systolic Standing 110 mmHg R regular BP Diastolic Standing 52 mmHg R regular Respiratory Rate 18 /min BMI (Body Mass Index) 25.5 kg/m2 Results Test Acquired Date Facility Test Result H/L Range Note Laboratory test 05/15/2019 [facility] SEE RESULT [address] [place] [address] [phone] Laboratory test 05/14/2019 [facility] SEE RESULT [address] [place] [address] [phone] 1 SEE RESULT BELOW Name: BLADE SANCHEZ : [address]: Una Swann MD Acct: [id number] Unit: [id number] AGE: 79 Location: [place] [address] Re05/13/19 SEX: M Status: ADM IN SPEC: [id number] KRISTI: 05/15/[address] [facility] [address]: Jesus Shi DO REQ: [id number] RECD: 05/15/19150 STATUS: ESTEBAN VALLADARES DR: Gal Swann MD [...] CONTINUED ON NEXT PAGE DEPARTMENT OF PATHOLOGY, [address] [place] [address] Abraham Cat M.D. Director [facility] # [id number] RUN DATE: 05/16/19 [facility] LAB LIVE PAGE 2 Patient: BLADE SANCHEZ [id number] (Continued) GROSS DESCRIPTION (Continued) Signed by and Reported on: Skyla Parr MD 05/16/19 1450 END OF REPORT DEPARTMENT OF PATHOLOGY, [address] [place] [address] Abraham Cat M.D. Director [facility] # [id number] 2 SEE RESULT BELOW Name: BLADE SANCHEZ : [address]: Una Swann MD Acct: [id number] Unit: [id number] AGE: 79 Location: [place] [address]- Re05/13/19 SEX: M Status: ADM IN SPEC: [id number] KRISTI: 05/14/19- SUBM DR: Magnolia Mon MD REQ: [id number] RECD: 05/14/19 STATUS: ESTEBAN VALLADARES DR: Dung Mann OVEN LABORER _ ORDERED: LEVEL 4 FINAL DIAGNOSIS [...] 1325 END OF REPORT DEPARTMENT OF PATHOLOGY, [address] [place] [address] Abraham Cat M.D. Director [facility] # [id number] Procedures Date Code Description Status 08/27/2019 54677 EKG Tracing & Interpretation Completed 08/10/2019 99014 Echocardiogram, Limited Study Completed 08/07/2019 72921 ECHO Transthorasic Realtime 2D W Doppler & Color Flow Completed Hosp 06/06/2019 17890 EKG Tracing & Interpretation Completed 05/15/2019 88471 ECHO Transthorasic Realtime 2D W Doppler & Color Flow Completed Hosp 05/14/2019 27016 EKG, Interpretation Only Completed 04/16/2019 69067 EKG Tracing & Interpretation Completed 10/10/2016 [id number] Colonoscopy Completed Medical Devices Description No Information Available Encounters Type Date Location Provider Dx Diagnosis Office Visit 09/01/2019 Pulmonology And Kathy Granados, J44.9 Chronic obstructive 11:30a Sleep Services Of pulmonary Alvaro mendosa unspecified R09.02 Hypoxemia I26.99 Other pulmonary embolism without acute cor pulmonale Office Visit 08/27/2019 9:00a [facility] Inderjit Purdy I26.99 Other pulmonary Of Alvaro Montes M.D. embolism without acute cor pulmonale I21.4 Non-St elevation (Nstemi) myocardial infarction I48.20 Chronic atrial fibrillation, unspecified I10 Essential (primary) hypertension Office Visit 08/18/2019 11:03a [facility] Kamila Erick, I26.99 Other pulmonary Assoc,pc OVEN LABORER embolism Hospitalists without acute cor pulmonale I82.401 Acute embolism and thombos unsp deep veins of r low extrem I21.4 Non-St elevation (Nstemi) myocardial infarction I48.91 Unspecified atrial fibrillation J90 Pleural effusion, not elsewhere classified Office Visit 08/17/2019 11:03a [facility] Kamila Erick, I26.99 Other pulmonary Assoc,pc OVEN LABORER embolism Hospitalists without acute cor pulmonale I82.401 Acute embolism and thombos unsp deep veins of r low extrem I21.4 Non-St elevation (Nstemi) myocardial infarction J44.1 Chronic obstructive pulmonary disease w (acute) exacerbation J90 Pleural effusion, not elsewhere classified I10 Essential (primary) hypertension F41.8 Other specified anxiety disorders Office Visit 08/17/2019 9:17a Pulmonology And Kathy I26.99 Other pulmonary Sleep Services Of MD Darwin embolism without Alvaro acute cor pulmonale J90 Pleural effusion, not elsewhere classified Office Visit 08/16/2019 9:17a Pulmonology And Kathy I26.99 Other pulmonary [facility] [place] embolism without Alvaro acute cor pulmonale J90 Pleural effusion, not elsewhere classified R04.2 Hemoptysis Office Visit 08/16/2019 11:03a [facility] [place] I26.99 Other pulmonary Assoc,pc Tierra Manzano, embolism Hospitalists OVEN LABORER without acute cor pulmonale I82.401 Acute embolism and thombos unsp deep veins of r low extrem I21.4 Non-St elevation (Nstemi) myocardial infarction I48.0 Paroxysmal atrial fibrillation F41.8 Other specified anxiety disorders Office Visit 08/15/2019 8:00a Pulmonology And Kathy I26.99 Other pulmonary Sleep Services Of MD [place] embolism without Plant Inspector acute cor pulmonale J90 Pleural effusion, not elsewhere classified Office Visit 08/14/2019 2:59p [facility] Hair Lalito I21.4 Non-St elevation Of Plant Inspector Nelly Angel, (Nstemi) [facility], FASNC myocardial infarction I26.99 Other pulmonary embolism without acute cor pulmonale Office Visit 08/14/2019 11:10a Pulmonology And Kathy J90 Pleural effusion, Sleep Services Of MD [place] not elsewhere Plant Inspector classified R07.9 Chest pain, unspecified Office Visit 08/13/2019 11:02a [facility] Avi Lam I26.99 Other pulmonary M.D. embolism without acute cor pulmonale J44.1 Chronic obstructive pulmonary disease w (acute) exacerbation I27.20 Pulmonary hypertension, unspecified Z99.81 Dependence on supplemental oxygen Office Visit 08/12/2019 11:02a [facility] [place] I26.99 Other pulmonary Assoc,iman Manzano, embolism Hospitalists OVEN LABORER without acute cor pulmonale I21.4 Non-St elevation (Nstemi) myocardial infarction I82.401 Acute embolism and thombos unsp deep veins of r low extrem J44.9 Chronic obstructive pulmonary disease, unspecified Office Visit 08/12/2019 11:45a Pulmonology And Kathy J90 Pleural effusion, Sleep Services Of MD [place] not elsewhere Plant Inspector classified R04.2 Hemoptysis R07.9 Chest pain, unspecified Office Visit 08/11/2019 11:01a [facility] [place] I26.99 Other pulmonary Assoc,iman Manzano, embolism Hospitalists OVEN LABORER without acute cor pulmonale I21.4 Non-St elevation (Nstemi) myocardial infarction I82.401 Acute embolism and thombos unsp deep veins of r low extrem I48.91 Unspecified atrial fibrillation J44.9 Chronic obstructive pulmonary disease, unspecified I10 Essential (primary) hypertension Office Visit 08/11/2019 2:54p Pulmonology And Kathy J90 Pleural effusion, Sleep Services Of MD [place] not elsewhere [facility] classified R04.2 Hemoptysis Office Visit 08/11/2019 2:57p [facility] Inderjit Purdy I21.4 Non-St elevation Of Alvaro Montes M.D. (Nstemi) myocardial infarction I26.99 Other pulmonary embolism without acute cor pulmonale Office Visit 08/10/2019 10:47a [facility] Wilfredo SLuis I26.99 Other pulmonary Of Alvaro Taborno, DO embolism without FACC acute cor pulmonale I21.9 Acute myocardial infarction, unspecified I48.0 Paroxysmal atrial fibrillation J44.9 Chronic obstructive pulmonary disease, unspecified Office Visit 08/10/2019 [facility] I26.99 Other pulmonary 11:01a iman Cobb M.D. embolism Hospitalists without acute cor pulmonale I82.401 Acute embolism and thombos unsp deep veins of r low extrem R04.2 Hemoptysis R07.9 Chest pain, unspecified J90 Pleural effusion, not elsewhere classified J44.9 Chronic obstructive pulmonary disease, unspecified Office Visit 08/09/2019 [facility] I26.99 Other pulmonary 11:01a iman Cobb M.D. embolism Hospitalists without acute cor pulmonale I82.401 Acute embolism and thombos unsp deep veins of r low extrem J44.9 Chronic obstructive pulmonary disease, unspecified J90 Pleural effusion, not elsewhere classified Office Visit 08/08/2019 [facility] I26.99 Other pulmonary 11:01a iman oCbb M.D. embolism Hospitalists without acute cor pulmonale I82.401 Acute embolism and thombos unsp deep veins of r low extrem R04.2 Hemoptysis J44.9 Chronic obstructive pulmonary disease, unspecified R00.0 Tachycardia, unspecified J90 Pleural effusion, not elsewhere classified Office Visit 08/07/2019 [facility] I26.99 Other pulmonary 11:00a iman Cobb M.D. embolism Hospitalists without acute cor pulmonale I82.401 Acute embolism and thombos unsp deep veins of r low extrem R04.2 Hemoptysis R00.0 Tachycardia, unspecified J90 Pleural effusion, not elsewhere classified Office Visit 08/07/2019 2:47p Pulmonology And Kathy J90 Pleural effusion, Sleep Services Of MD [place] not elsewhere Plant Inspector classified J18.9 Pneumonia, unspecified organism Office Visit 08/06/2019 11:00a [facility] Merced LongHari, I26.99 Other pulmonary Assoc,pc OVEN LABORER embolism Hospitalists without acute cor pulmonale I48.91 Unspecified atrial fibrillation J90 Pleural effusion, not elsewhere classified I10 Essential (primary) hypertension Office Visit 07/08/2019 2:00p Pulmonology And Kathy R06.02 Shortness of Sleep Services Of MD [place] breath Plant Inspector J44.9 Chronic obstructive pulmonary disease, unspecified J84.9 Interstitial pulmonary disease, unspecified R09.02 Hypoxemia Office Visit 06/06/2019 10:30a [facility] Inderjit Purdy 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 R06.02 Shortness of breath I73.9 Peripheral vascular disease, unspecified R94.31 Abnormal electrocardiogram [ECG] [EKG] [facility] K[facility].2 Gastrointestinal 2:16p Assoc,pc [place], hemorrhage, Hospitalists M.D.,FACP unspecified D50.0 Iron deficiency anemia secondary to blood loss (chronic) I48.91 Unspecified atrial fibrillation Office Visit 05/15[facility]2019 [facility] K92.2 Gastrointestinal 2:15p Assoc,pc [place], hemorrhage, Hospitalists M.D.,FACP unspecified D64.9 Anemia, unspecified I10 Essential (primary) hypertension I48.91 Unspecified atrial fibrillation Office Visit 05/14/2019 [facility] K92.2 Gastrointestinal 2:14p Assoc,pc [place], hemorrhage, Hospitalists M.D.,FACP unspecified I10 Essential (primary) hypertension I48.91 Unspecified atrial fibrillation J44.9 Chronic obstructive pulmonary disease, unspecified Office 05/13/2019 [facility]ology Tod Rm K92.2 Gastrointestinal Visit 7:00a MD Eb hemorrhage, unspecified D50.0 Iron deficiency anemia secondary to blood loss (chronic) Office Visit 05/13/2019 [facility] Dung Purdy K92.2 Gastrointestinal 2:14p Assoc,iman Swann, hemorrhage, Hospitalists Nelly,FACP unspecified D62 Acute posthemorrhagic anemia I48.91 Unspecified atrial fibrillation I10 Essential (primary) hypertension Office Visit 04/16/2019 2:00p [facility] Inderjit Purdy 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 cor pulmonale 08/27/2019 I21.4 Non-St elevation (Nstemi) myocardial Inderjit Montes M.D. infarction 08/27/2019 I48.20 Chronic atrial fibrillation, Inderjit Montes M.D. unspecified 08/27/2019 I10 Essential (primary) hypertension Inderjit Montes M.D. 08/18/2019 I26.99 Other pulmonary embolism without acute Kamila Erick, OVEN LABORER cor pulmonale 08/18/2019 I82.401 Acute embolism and thrombosis of Kamila Erick, OVEN LABORER unspecified deep veins of right lower extremity 08/18/2019 I21.4 Non-St elevation (Nstemi) myocardial Kamila Erick, OVEN LABORER infarction 08/18/2019 I48.91 Unspecified atrial fibrillation Kamila Erick, OVEN LABORER 08/18/2019 J90 Pleural effusion, not elsewhere Kamila Erick, OVEN LABORER classified 08/17/2019 I26.99 Other pulmonary embolism without acute Kamila Erick, OVEN LABORER cor pulmonale 08/17/2019 I26.99 Other pulmonary embolism without acute Kathy Granados MD cor pulmonale 08/17/2019 I82.401 Acute embolism and thrombosis of Kamila Erick, OVEN LABORER unspecified deep veins of right lower extremity 08/17/2019 J90 Pleural effusion, not elsewhere Kathy Granados MD classified 08/17/2019 I21.4 Non-St elevation (Nstemi) myocardial Kamila Erick, OVEN LABORER infarction 08/17/2019 J44.1 Chronic obstructive pulmonary disease Kamila Erick, OVEN LABORER with (acute) exacerbation 08/17/2019 J90 Pleural effusion, not elsewhere Kamila Erick, OVEN LABORER classified 08/17/2019 I10 Essential (primary) hypertension Kamila Erick, OVEN LABORER 08/17/2019 F41.8 Other specified anxiety disorders Kamila Erick, OVEN LABORER 08/16/2019 I26.99 Other pulmonary embolism without acute [place] Mayorga Dotstefany OVEN LABORER cor pulmonale 08/16/2019 I26.99 Other pulmonary embolism without acute Kathy Granados MD cor pulmonale 08/16/2019 I82.401 Acute embolism and thrombosis of [place] Manzano, OVEN LABORER unspecified deep veins of right lower extremity 08/16/2019 J90 Pleural effusion, not elsewhere Kathy Granados MD classified 08/16/2019 I21.4 Non-St elevation (Nstemi) myocardial [place] Manzano , OVEN LABORER infarction 08/16/2019 R04.2 Hemoptysis Kathy Granados MD 08/16/2019 I48.0 Paroxysmal atrial fibrillation [place] Manzano, OVEN LABORER 08/16/2019 F41.8 Other specified anxiety disorders [place] Haleystefany, OVEN LABORER 08/15/2019 I26.99 Other pulmonary embolism without acute Kathy Granados MD cor pulmonale 08/15/2019 J90 Pleural effusion, not elsewhere Kathy Granados MD classified 08/14/2019 I21.4 Non-St elevation (Nstemi) myocardial Hair Lalito Angel M.D. , infarction FACC, FASPA 08/14/2019 I26.99 Other pulmonary embolism without acute Hair Lalito Angel M.D., cor pulmonale FAC, FASPA 08/14/2019 J90 Pleural effusion, not elsewhere Kathy Granados MD classified 08/14/2019 R07.9 Chest pain, unspecified Kathy Granados MD 08/13/2019 I26.99 Other pulmonary embolism without acute Avi Lam M.D. cor pulmonale 08/13/2019 J44.1 Chronic obstructive pulmonary disease Avi Lam M.D. with (acute) exacerbation 08/13/2019 I27.20 Pulmonary hypertension, unspecified Avi Lam M.D. 08/13/2019 Z99.81 Dependence on supplemental oxygen Avi Lam M.D. 08/12/2019 I26.99 Other pulmonary embolism without acute [place] Tierra Doto, OVEN LABORER cor pulmonale 08/12/2019 I21.4 Non-St elevation (Nstemi) myocardial [place] Tierra Doto , OVEN LABORER infarction 08/12/2019 J90 Pleural effusion, not elsewhere Kathy Granados MD classified 08/12/2019 I82.401 Acute embolism and thrombosis of [place] Tierra Doto, OVEN LABORER unspecified deep veins of right lower extremity 08/12/2019 R04.2 Hemoptysis Kathy Granados MD 08/12/2019 J44.9 Chronic obstructive pulmonary disease, [place] Tierra Doto, OVEN LABORER unspecified 08/12/2019 R07.9 Chest pain, unspecified Kathy Granados MD 08/11/2019 I26.99 Other pulmonary embolism without acute [place] Tierra Doto, OVEN LABORER cor pulmonale 08/11/2019 I21.4 Non-St elevation (Nstemi) myocardial Inderjit Montes M.D. infarction 08/11/2019 I21.4 Non-St elevation (Nstemi) myocardial [place] Tierra Doto , OVEN LABORER infarction 08/11/2019 I26.99 Other pulmonary embolism without acute Inderjit Montes M.D. cor pulmonale 08/11/2019 I82.401 Acute embolism and thrombosis of [place] Tierra Doto, OVEN LABORER unspecified deep veins of right lower extremity 08/11/2019 J90 Pleural effusion, not elsewhere Kathy Granados MD classified 08/11/2019 I48.91 Unspecified atrial fibrillation [place] Tierra Doto, OVEN LABORER 08/11/2019 R04.2 Hemoptysis Kathy Granados MD 08/11/2019 J44.9 Chronic obstructive pulmonary disease, [place] Tierra Doto, OVEN LABORER unspecified 08/11/2019 I10 Essential (primary) hypertension [place] Manzano, OVEN LABORER 08/10/2019 I26.99 Other pulmonary embolism without acute Mal Gan M.D. cor pulmonale 08/10/2019 I26.99 Other pulmonary embolism without acute Wilfredo Chiang Isbell, DO FAC cor pulmonale 08/10/2019 I82.401 Acute embolism and thrombosis of Mal Gan M.D. unspecified deep veins of right lower extremity 08/10/2019 I21.9 Acute myocardial infarction, Wilfredo Chiang Isbell, DO FAC unspecified 08/10/2019 R04.2 Hemoptysis Mal Gan M.D. 08/10/2019 I48.0 Paroxysmal atrial fibrillation Wilfredo Isbell, DO FACC 08/10/2019 R07.9 Chest pain, unspecified Mal Gan M.D. 08/10/2019 J44.9 Chronic obstructive pulmonary disease, Wilfredo Isbell, DO FAC unspecified 08/10/2019 J90 Pleural effusion, not elsewhere Mal Gan M.D. classified 08/10/2019 J44.9 Chronic obstructive pulmonary disease, Mal Gan M.D. unspecified 08/09/2019 I26.99 Other pulmonary embolism without acute Mal Gan M.D. cor pulmonale 08/09/2019 I82.401 Acute embolism and thrombosis of Mal Gan M.D. unspecified deep veins of right lower extremity 08/09/2019 J44.9 Chronic obstructive pulmonary disease, Mal Gan M.D. unspecified 08/09/2019 J90 Pleural effusion, not elsewhere Mal Gan M.D. classified 08/08/2019 I26.99 Other pulmonary embolism without acute Mal Gan M.D. cor pulmonale 08/08/2019 I82.401 Acute embolism and thrombosis of Mal Gan M.D. unspecified deep veins of right lower extremity 08/08/2019 R04.2 Hemoptysis Mal Gan M.D. 08/08/2019 J44.9 Chronic obstructive pulmonary disease, Mal Gan M.D. unspecified 08/08/2019 R00.0 Tachycardia, unspecified Mal Gan M.D. 08/08/2019 J90 Pleural effusion, not elsewhere Mal Gan M.D. classified 08/07/2019 I26.99 Other pulmonary embolism without acute Mal Gan M.D. cor pulmonale 08/07/2019 I82.401 Acute embolism and thrombosis of Mal Gan M.D. unspecified deep veins of right lower extremity 08/07/2019 I26.99 Other pulmonary embolism without acute Wilfredo Isbell, DO [facility] cor pulmonale 08/07/2019 R04.2 Hemoptysis Mal Gan M.D. 08/07/2019 R00.0 Tachycardia, unspecified Mal Gan M.D. 08/07/2019 J90 Pleural effusion, not elsewhere Kathy Granados MD classified 08/07/2019 J90 Pleural effusion, not elsewhere Mal Gan M.D. classified 08/07/2019 J18.9 Pneumonia, unspecified organism Kathy Granados MD 08/06/2019 I26.99 Other pulmonary embolism without acute Merced Cool NP cor pulmonale 08/06/2019 I48.91 Unspecified atrial fibrillation Merced Cool NP 08/06/2019 J90 Pleural effusion, not elsewhere Merced Cool NP classified 08/06/2019 I10 Essential (primary) hypertension Merced Cool NP 07/08/2019 R06.02 Shortness of breath Kathy Granados MD 07/08/2019 J44.9 Chronic obstructive pulmonary disease, Kathy Granados MD unspecified 07/08/2019 J84.9 Interstitial pulmonary disease, Kathy Granados MD unspecified 07/08/2019 R09.02 Hypoxemia Kathy Granados MD 06/06/2019 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 [...] Swann M.D.,FACP 05/15/2019 I10 Essential (primary) hypertension Dnug Swann M.D.,FACP 05/15/2019 I48.91 Unspecified atrial fibrillation Dung Swann M.D., FACP 05/14/2019 D64.89 Other specified anemias Wilfredo Isbell DO [facility] 05/14/2019 K92.2 Gastrointestinal hemorrhage, Dung Swann [...] 05/13/2019 D62 Acute posthemorrhagic anemia Dung Swann M.D.,[facility] 05/13/2019 I48.91 Unspecified atrial fibrillation Dung Swann M.D., [facility] 05/13/2019 I10 Essential (primary) hypertension Dung Swann M.D.,[facility] 04/16/2019 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 04/16/2019 R06.02 Shortness of breath Inderjit Montes M.D. Plan of Treatment Future Appointment(s):10/16/2019 1:30 pm - Stacie Donaldson NP at [facility]11/26/2019 11:30 am - Inderjit Montes M.D. at [facility]09/01/2019 - Kathy Granados MDJ44.9 Chronic obstructive pulmonary disease, unspecifiedNew Orders:6 Minute Walk, Ordered: PFTW/Spirometry Vol Pre/Post Bronchdilat Dlco Complete, Ordered: Follow up:6 weeks SMR09.02 EyjaaifjrJ20.99 Other pulmonary embolism without acute cor pulmonale Functional Status Description No Information Available Mental Status Description No Information Available Referrals Description No Information Available
--- OUTSIDE RECORDS SUMMARY | 2019-09-07 17:45 | XMS REPORT ---
:1940 Author [facility] Care Team Providers Name Role Phone Unavailable Unavailable Unavailable Problems Condition Condition Condition Status Onset Resolution Last Treating Comments Name Details Category Date Date Treatment Clinician Date Non-ST Non-ST Diagnosis Active 2018-09 CHOLO elevation elevation 2-03 DES PLAINESS-DORENE (NSTEMI) (NSTEMI) #995540 myocardial myocardial infarction infarction Pain frequent Pain Mgmt Active 2018-09 Mervat pain 2-12 (Dell) 10:30: [id number] Cardio edema Cardiovasc Active 2018-09 Mervat ular 2-12 (Dell) 10:30: [id number] Respiratory dyspnea Respirator Active 2018-09 Mervat present y 2-12 (Dell) 10:30: [id number] Respiratory oxygen Respirator Active 2018-09 Mervat treatments y 2-12 (Dell) in home 10:30: [id number] Endo/Alejandro anti-coagul Endo/Alejandro Active 2018-09 Mervat ation 2-12 (Dell) therapy 10:30: [id number] Integument skin Integument Active 2018-09 Mervat integrity 2-12 (Dell) risk 10:30: [id number] Nutrition nutritional Nutrition Resolve 2018-092019-09-05 Mervat restriction d 2-12 10:00:00 (Dell) s 10:30: [id number] Elimination urinary Eliminatio Resolve 2018-092019-09-05 Mervat incontinenc n d 2-12 10:00:00 (Dell) e 10:30: Newell [id number] Elimination bowel Eliminatio Resolve 2018-092019-09-05 Mervat incontinenc n d 2-12 10:00:00 (Dell) e 10:30: Newell [id number] Neuro confusion Neuro/Emot Active 2018-09 Mervat present ion 2-12 (Dell) 10:30: Newell [id number] Neuro anxiety Neuro/Emot Active 2018-09 Mervat present ion 2-12 (Dell) 10:30: Newell [id number] Neuro impaired Neuro/Emot Active 2018-09 Mervat decision-ma ion 2-12 (Dell) iva 10:30: Newell [id number] Activity ADL Activity Active 2018-09 Mervat assistance 2-12 (Edll) required 10:30: Newell [id number] Activity self-care Activity Active 2018-09 Mervat deficit 2-12 (Dell) 10:30: Newell [id number] Safety fall risk Safety Active 2018-09 Mervat factor 2-12 (Dell) present 10:30: Newell [id number] Safety risk for Safety Active 2018-09 Mervat hospitaliza 2-12 (Dell) tion 10:30: Newell [id number] Safety can be left Safety Active 2018-09 Mervat alone for 2-12 (Dell) only short 10:30: Newell periods 00 [id number] Medication oral med Meds Resolve 2018-092019-09-05 Mervat assistance d 2-12 10:00:00 (Dell) required 10:30: Newell [id number] Medication potential Meds Resolve 2018-092019-09-05 Mervat clinically d 2-12 10:00:00 (Dell) significant 10:30: Newell medication [id number] issue Musculoskel transfer Musculoske Active 2018-09 Mervat etal assistance letal 2-12 (Dell) required 10:30: Newell [id number] Musculoskel requires Musculoske Active 2018-09 Mervat etal human letal 2-12 (Dell) assist to 10:30: Newell leave home 00 [id number] Cardio hypertensio Cardiovasc Active 2018-09 CHOLO n ular -18 [place] 10:30: #[id number] Respiratory lung sounds Respirator Active 2018-09 CHOLO deficit y 2-18 [place] 10:30: #[id number] Allergies, Adverse Reactions, Alerts Allergy Allergy [...] min (vit - Gal SAVAGE B-12) 1,000 B) 1,000 mcg tablet mcg tablet ferrous ferrous 2018-09- Yes Ck Unknown Unknown sulfate 325 sulfate 325 10-29 Gal SAVAGE mg (65 mg mg (65 mg iron) iron) tablet,jesika tablet,jesika yed release yed release isosorbide isosorbide 2018-09 Yes Ck Unknown Unknown dinitrate dinitrate 10-29 Gal SAVAGE 30 mg 30 mg tablet tablet metoprolol metoprolol 2018-09 Yes Ck Unknown Unknown tartrate 50 tartrate 50 - Gal SAVAGE mg tablet mg tablet nitroglycer nitroglycer 2018-09 Yes Ck Unknown Unknown in 0.4 mg in 0.4 mg 10-29 Gal SAVAGE sublingual sublingual tablet tablet pantoprazol pantoprazol 2018-09 Yes Ck Unknown Unknown e 40 mg e 40 mg 10-29 Gal SAVAGE tablet,jesika tablet,jesika yed release yed release predniSONE predniSONE 2018-09- Yes Ck Unknown Unknown 10 mg 10 mg 10-29-16 Gal SAVAGE tablet tablet Xarelto 15 Xarelto 15 2018-09 Yes Ck Unknown Unknown mg tablet mg tablet 11-01 Gal SAVAGE LORazepam LORazepam 2018-09 Yes Ck Unknown Unknown 0.5 mg 0.5 mg 2 Gal SAVAGE tablet tablet HYDROcodone HYDROcodone 2018-09 [...] Observation Time Observation Value Comments SYSTOLIC mm[Hg] 2019-09-05 18:09:27 158 mm[Hg] mm[Hg] Method: Sit SYSTOLIC mm[Hg] 2019-09-01 18:09:23 138 mm[Hg] mm[Hg] Method: Stand DIASTOLIC mm[Hg] 2019-09-05 18:09:27 60 mm[Hg] mm[Hg] Method: Sit DIASTOLIC mm[Hg] 2019-09-01 18:09:23 72 mm[Hg] mm[Hg] Method: Stand PULSE 2019-09-05 18:09:27 45 /min /min RESP RATE 2019-09-05 18:09:27 16 /min /min TEMP 2019-09-05 18:09:27 97.0 [degF] Procedures This patient has no known procedures. Plan of Care Planned Activity Planned Date Details Comments Medication 2019-09-08 Xarelto 20 mg tablet [code = 1530993] Results This patient has no known results.
--- OUTSIDE RECORDS SUMMARY | 2019-09-07 17:45 | XMS REPORT ---
:1940 Author Organization [facility] Care Team Providers Name Role Phone Unavailable Unavailable Unavailable Problems Condition Condition Condition Status Onset Resolution Last Treating Comments Name Details Category Date Date Treatment Clinician Date Non-ST Non-ST Diagnosis Active 2018-09 CHOLO elevation elevation 2-03 SUNSETSDORENE (NSTEMI) (NSTEMI) #360152 myocardial myocardial infarction infarction Pain frequent Pain Mgmt Active 2018-09 Mervat pain 2-12 (Dell) 10:30: [id number] Cardio edema Cardiovasc Active 2018-09 Mervat ular 2-12 (Dell) 10:30: [id number] Respiratory dyspnea Respirator Active 2018-09 Mervat present y 2-12 (Dell) 10:30: [id number] Respiratory oxygen Respirator Active 2018-09 Mervat treatments y 2-12 (Dell) in home 10:30: [id number] Endo/Alejandro anti-coagul Endo/Alejandro Active 2018-09 Mervat ation 2-12 (Dell) therapy 10:30: [id number] Integument skin Integument Active 2018-09 Mervat integrity 2-12 (Dell) risk 10:30: [id number] Nutrition nutritional Nutrition Active 2018-09 Mervat restriction 2-12 (Dell) s 10:30: [id number] Elimination urinary Eliminatio Active 2018-09 Mervat incontinenc n 2-12 (Dell) e 10:30: [id number] Elimination bowel Eliminatio Active 2018-09 Mervat incontinenc n 2-12 (Dell) e 10:30: [id number] Neuro confusion Neuro/Emot Active 2018-09 Mervat present ion 2-12 (Dell) 10:30: [id number] Neuro anxiety Neuro/Emot Active 2018-09 Mervat present ion 2-12 (Dell) 10:30: Newell [id number] Neuro impaired Neuro/Emot Active 2018-09 Mervat decision-ma ion 2-12 (Dell) iva 10:30: Newell [id number] Activity ADL Activity Active 2018-09 Mervat assistance 2-12 (Dell) required 10:30: Newell [id number] Activity self-care Activity Active 2018-09 Mervat deficit 2-12 (Dell) 10:30: [id number] Safety fall risk Safety Active 2018-09 Mervat factor 2-12 (Dell) present 10:30: [id number] Safety risk for Safety Active 2018-09 Mervat hospitaliza 2-12 (Dell) tion 10:30: [place] [id number] Safety can be left Safety Active 2018-09 Mervat alone for 2-12 (Dell) only short 10:30: Newell [id number] Medication oral med Meds Active 2018-09 Mervat assistance 2-12 (Dell) required 10:30: Newell [id number] Medication potential Meds Active 2018-09 Mervat clinically 2-12 (Dell) significant 10:30: Newell medication [id number] issue Musculoskel transfer Musculoske Active 2018-09 Mervat etal assistance letal 2-12 (Dell) required 10:30: Newell [id number] Musculoskel requires Musculoske Active 2018-09 Mervat etal human letal 2-12 (Dell) assist to 10:30: Newell leave home [id number] Cardio hypertensio Cardiovasc Active 2018-09 CHOLO n ular 2-18 [place] 10:30: #[id number] 00 Respiratory lung sounds Respirator Active 2018-09 CHOLO deficit y 2-18 [place] 10:30: #[id number] 00 Allergies, Adverse Reactions, Alerts Allergy Allergy [...] Unknown Respimat 20 Respimat 20 2-12 Gal SAVAEG mcg-100 mcg-100 mcg/actuati mcg/actuati on solution on [...] 2019-09-08 Xarelto 20 mg tablet [code = [id number]] Results This patient has no known results.
--- OUTSIDE RECORDS SUMMARY | 2019-09-07 17:45 | XMS REPORT ---
:1940 Author Organization [facility] Care Team Providers Name Role Phone Unavailable Unavailable Unavailable Problems Condition Condition Condition Status Onset Resolution Last Treating Comments Name Details Category Date Date Treatment Clinician Date Non-ST Non-ST Diagnosis Active 2018-09 CHOLO elevation elevation 2-03 FAIRFAXS-DORENE (NSTEMI) (NSTEMI) #[id number] myocardial myocardial infarction infarction Pain frequent Pain Mgmt Active 2018-09 Mervat pain 2-12 (Dell) 10:30: [id number] Cardio edema Cardiovasc Active 2018-09 Mervat ular 2-12 (Dell) 10:30: [id number] Respiratory dyspnea Respirator Active 2018-09 Mervat present y 2-12 (Dell) 10:30: [id number] Respiratory oxygen Respirator Active 2018-09 Mervat treatments y 2-12 (Dell) in home 10:30: [id number] Endo/Alejandro anti-coagul Endo/Alejandro Active 2018-09 Mervat ation 2-12 (Dell) therapy 10:30: [id number] Integument skin Integument Active 2018-09 Mervat integrity 2-12 (Dell) risk 10:30: [id number] Nutrition nutritional Nutrition Resolve 2018-092019-09-05 Mervat restriction d 2-12 10:00:00 (Dell) s 10:30: [id number] Elimination urinary Eliminatio Resolve 2018-092019-09-05 Mervat incontinenc n d 2-12 10:00:00 (Dell) e 10:30: Newell [id number] Elimination bowel Eliminatio Resolve 2018-092019-09-05 Mervat incontinenc n d 2-12 10:00:00 (Dell) e 10:30: Newell [id number] Neuro confusion Neuro/Emot Active 2018-09 Mervat present ion 2-12 (Dell) 10:30: Newell [id number] Neuro anxiety Neuro/Emot Active 2018-09 Mervat present ion 2-12 (Dell) 10:30: Newell [id number] Neuro impaired Neuro/Emot Active 2018-09 Mervat decision-ma ion 2-12 (Dell) iva 10:30: Newell [id number] Activity ADL Activity Active 2018-09 Mervat assistance 2-12 (Dell) required 10:30: Newell [id number] Activity self-care Activity Active 2018-09 Mervat deficit 2-12 (Dell) 10:30: Newell [id number] Safety fall risk Safety Active 2018-09 Mervat factor 2-12 (Dell) present 10:30: Newell [id number] Safety risk for Safety Active 2018-09 Mervat hospitaliza 2-12 (Dell) tion 10:30: Newell [id number] Safety can be left Safety Active 2018-09 Mervat alone for 2-12 (Dell) only short 10:30: Newell periods 00 [id number] Medication oral med Meds Resolve 2018-092019-09-05 Mervat assistance d 2-12 10:00:00 (Dell) required 10:30: Newell [id number] Medication potential Meds Resolve 2018-092019-09-05 Mervat clinically d 2-12 10:00:00 (Dell) significant 10:30: Newell medication [id number] issue Musculoskel transfer Musculoske Active 2018-09 Mervat etal assistance letal 2-12 (Dell) required 10:30: Newell [id number] Musculoskel requires Musculoske Active 2018-09 Mervat etal human letal 2-12 (Dell) assist to 10:30: Newell leave home 00 [id number] Cardio hypertensio Cardiovasc Active 2018-09 CHOLO n ular -18 [place] 10:30: #[id number] 00 Respiratory lung sounds Respirator Active 2018-09 CHOLO deficit y 2-18 [place] 10:30: #[id number] 00 Allergies, Adverse Reactions, Alerts Allergy Allergy [...] 2019-09-08 Xarelto 20 mg tablet [code = [id number]] Results This patient has no known results.
--- OUTSIDE RECORDS SUMMARY | 2019-09-07 17:45 | XMS REPORT | Continuity of Care Document ---
:1940 External Reference #:[id number] Author Problems Active Problems Provider Date Essential hypertension [...] ER day 50mg Tablets ER 24HR Ipratropium Crumpler Unknown 0.03% Solution Immunizations Description No Information [...] H/L Range Note CBC Auto Diff 07/28/2019 [facility] [place] White Blood 15.3 10^3/uL High 3.5-10.8 Count [...] 0.1 Iron & Iron Binding Capacity 07/28/2019 [facility] [place] Iron 43 g/dL Low 50-212 Unsaturated Iron Binding < 331 g/dL Total Iron Binding Capacity 346 g/dL Normal 250-450 Transferrin 247 mg/dL Normal 203-362 % Iron Saturation 12 % Low 15-55 Laboratory test finding 07/28/2019 [facility] [place] Ferritin 36.9 ng/mL Normal 24-336 Folic Acid (Folate) > 20.00 ng/mL >3.99 Vitamin B12 270 pg/mL Normal 180-914 1 Protein Electrophoresis 07/28/2019 [facility] [place] Total Protein(Pep) 6.8 g/dL 6.3 - 7.9 Albumin 3.3 g/dL Abnormal 3.4-4.7 Alpha-1 Globulin 0.3 g/dL 0.1-0.3 Alpha-2 Globulin 1.0 g/dL 0.6-1.0 Beta Globulin 1.1 g/dL 0.7-1.2 Gamma Globulin 1.2 g/dL 0.6-1.6 Albumin/Globulin Ratio 0.93 Impression See Comment 2 CBC Auto Diff 06/02/2019 [facility] [place] White Blood Count 11.8 10^3/uL High 3.5- [...] Red Blood Cells % 0.0 Xray 05/16/2019 [facility] [place] Radiology Chest Ap Or Port <pending> Laboratory test 05/15/2019 [facility] [place] Surgical SEE RESULT BELOW 3 finding Pathology Order CBC W/Auto 05/15/2019 [facility] White Blood Count <pending> Differential(!) Ser Auto CNT RBC Red Blood Count <pending> Hemoglobin Blood <pending> Hematocrit <pending> MCV (Corpuscular Volume) <pending> MCH (Corpuscular Hemoglobin) <pending> MCHC (Corpuscular Hemog Conc) <pending> RDW <pending> Platelet Count Blood Auto CNT <pending> MPV <pending> Lymph% <pending> [place]one% <pending> Neutrophil % <pending> Absolute Lymphocytes <pending> Absolute Monocytes <pending> Absolute Neutrophils <pending> Laboratory test 05/14/2019 [facility] [place] Surgical SEE RESULT 4 finding Pathology Order BELOW Laboratory test 05/14/2019 [facility] Lactic Acid <pending> finding Ser/Plas Mol/Vol BMP W/O Egfr(!) 05/14/2019 [facility] Sodium(!) <pending> 134-1 [address] [facility] mEq/L [address] [place] [address] [phone] Potassium(!) <pending> mEq/L 3.6-5.5 Chloride Serum/Plasma(!) <pending> mEq/L 94-112 Carbon Dioxide Ser/Plasm(!) <pending> mEq/L 21-33 BUN - Urea Nitrogen(!) <pending> mg/dL 6-24 Calcium Ser/Plasma Mass/Vol(!) <pending> mg/dL 8.6-10.2 Creatinine Serum Mass/Vol(!) <pending> mg/dL 0.5-1.4 Glucose Serum(!) <pending> mg/dL 70-105 Liver 05/14/2019 [facility] Albumin <pending> 3.5-5.2 Function [address] [facility] Serum/Plasma(!) g/dL Panel(!) [place] [address] [phone] Alkaline Phosphatase(!) <pending> U/L 39-117 Bilirubin Direct [...] Auto CNT <pending> MPV <pending> Lymph% <pending> [place]% <pending> Neutrophil % <pending> Absolute Lymphocytes <pending> [...] Auto CNT <pending> MPV <pending> Lymph% <pending> [place]% <pending> Neutrophil % <pending> Absolute Lymphocytes <pending> Absolute Monocytes <pending> Absolute Neutrophils <pending> 1 Normal Range 180 to 914 Indeterminate Range 145 to 180 Deficient Range <145 2 RESULT: No apparent monoclonal protein on serum electrophoresis. Test Performed by: [facility] [employer] [facility] [address] [place] [address] Capsule Filling Machine Operator: Mauricio Mayes M.D. Ph.D.; CLIA# [id number] 3 SEE RESULT BELOW Name: RAIN SANCHEZ : [address]: Una Swann MD Acct: [id number] Unit: [id number] AGE: 79 Location: [place] [address] Re05/13/19 SEX: M Status: ADM IN SPEC: [id number] KRISTI: 05/15/[address] [facility] DR: Jesus Shi DO REQ: [id number] RECD: 05/15/19150 STATUS: ESTEBAN VALLADARES DR: Gal [...] CONTINUED ON NEXT PAGE DEPARTMENT OF PATHOLOGY, [address] [place] [address] Abraham Cat M.D. Director [facility] # [id number] RUN DATE: 05/16/19 [facility] LAB LIVE PAGE 2 Patient: RAIN SANCHEZ [id number] (Continued) GROSS DESCRIPTION (Continued) Signed by and Reported on: Skyla Parr MD 05/16/19 1450 END OF REPORT DEPARTMENT OF PATHOLOGY, [address] [place] [address] Abraham Cat M.D. Director [facility] # [id number] 4 SEE RESULT BELOW Name: RAIN SANCHEZ : [address]: Una Swann MD Acct: [id number] Unit: [id number] AGE: 79 Location: [place] [address]- Re05/13/19 SEX: M Status: ADM IN SPEC: [id number] KRISTI: 05/14/19- SUBM DR: Magnolia Mon MD REQ: [id number] RECD: 05/14/19 STATUS: ESTEBAN VALLADARES DR: Dung Mann BOX TOE [employer]ANGER STITCHDOWNS _ ORDERED: LEVEL 4 FINAL DIAGNOSIS Stomach, [...] 1325 END OF REPORT DEPARTMENT OF PATHOLOGY, [address] [place] [address] Abraham Cat M.D. Director [facility] # [id number] Procedures Date Code Description Status 05/15/2019 35471 Colonoscopy W/ Ablation Of Tumor/Polyps/Lesion Inc. 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
--- OUTSIDE RECORDS SUMMARY | 2019-09-07 17:45 | XMS REPORT | Summary of Care ---
:1940 Author Organization [facility] Address [address] 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 Encounter Details Date Type Department Care Team Description 09/02/2019 Office Visit [facility] Chandni Hunter, Presence of IVC filter (Primary Dx); Surgery MD Guera S/P insertion of iliac artery stent [address] [place] [address] [place] [address] Allergies Active Allergy Reactions Severity Noted Date Comments Sulfa Antibiotics Swelling 04/21/2019 Of abdomen documented as of this encounter (statuses as of 09/04/2019) Medications Medication Sig Dispensed Refills Start End Date Status Date Ipratropium-[place] Take by 0 Active rol (COMBIVENT inhalation. RESPIMAT IN) simvastatin Take 40 mg by 0 Active (ZOCOR) 40 MG Oral mouth EVERY Tab BEDTIME. albuterol 2.5 mg by 0 Active (PROVENTIL, Inhalation-SVN VENTOLIN) (2.5 route TWICE MG/3ML) 0.083% DAILY. Inhalation Nebu Soln predniSONE Take 10 mg by 0 Active (DELTASONE) 10 MG mouth DAILY. Oral Tab Tiotropium Take by 0 Active Dawn-Olodaterol inhalation (STIOLTO RESPIMAT) DAILY. 2.5-2.5 MCG/ACT Inhalation Aero Soln furosemide (LASIX) Take 20 mg by 0 Active 40 MG Oral Tab mouth DAILY. potassium chloride Take 10 mEq by 0 Active (KLOR-CON) 20 MEQ mouth TWICE Oral DAILY. PackIndications: Indications: Hypokalemia Low Amount of Potassium in the Blood aspirin 81 MG Oral Take 1 Tab by 30 Tab 3 Active Tab EC mouth DAILY. 9 ferrous sulfate Take 1 Tab by 30 Tab 0 Active 325 (65 Fe) MG mouth DAILY. 9 Oral Tab isosorbide Take 3 Tabs by 30 Tab 3 Active MONOnitrate mouth DAILY. 9 (IMDUR) 30 MG Oral TABLET SR 24 HR pantoprazole Take 1 Tab by 60 Tab 0 Active (PROTONIX) 40 MG mouth TWICE 9 Oral Tab EC DAILY. rivaroxaban Take 1 Tab by 60 Tab 0 Active (XARELTO) 15 MG mouth TWICE 9 Oral Tab DAILY. PT START MEDICATION AGAIN August 31/2019 cyanocobalamin Take 1 Tab by 30 Tab 0 Active (VITAMIN B12) 1000 mouth DAILY. 9 MCG Oral Tab metoprolol Take 1 Tab by 60 Tab 3 Active succinate (TOPROL mouth TWICE 9 XL) 50 MG Oral DAILY. TABLET SR 24 HR amLodipine Take 1 Tab by 30 Tab 3 Active (NORVASC) 5 MG mouth DAILY. 9 Oral Tab LORazepam (ATIVAN) Take 0.5 mg by 0 Active 0.5 MG Oral Tab mouth NEEDED. HYDROcodone-acetam Take 15 mL by 0 Active inophen (LORTAB) mouth 7.5-325 MG/15ML NEEDED. Oral Solution guaifenesin Take 600 mg by 0 Active (MUCINEX) 600 MG mouth TWICE Oral TABLET SR [address] 14 mg 0 09/02/20 Discontinued transdermal onto skin 19 patch-daily DAILY. (NICODERM) 14 MG/24HR Transdermal PATCH [address] 1 4 Suppository 0 09/02/20 Discontinued (ANUSOL HC) 25 MG Suppository per 06 05 Rectal Suppos rectum TWICE DAILY. 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 08/20/2019 Hx of non-ST elevation myocardial infarction (NSTEMI) 08/20/2019 PVD (peripheral vascular disease) 04/08/2019 Overview: Added automatically from request for surgery [id number] Pain in joint involving right pelvic region and thigh 03/07/2019 documented as of this encounter (statuses as of 09/04/2019) Social History Tobacco Use Types Packs/Day Years Used Date Former Smoker Cigarettes 1 64 1954 - 04/21/2019 Smokeless Tobacco: Never Used Comments: tapering down [...] Sign Reading Time Taken Comments Blood Pressure 140/66 09/02/2019 2:43 PM EST Pulse 66 09/02/2019 2:43 PM EST Temperature - - Respiratory Rate - - Oxygen Saturation - - Inhaled Oxygen Concentration - - Weight 68 kg (150 lb) 09/02/2019 2:43 PM EST Height 172.1 cm (5' 7.75") 09/02/2019 2:43 PM EST Body Mass Index 22.98 09/02/2019 2:43 PM EST documented in this encounter Progress Notes Emiliano Miller NP - 09/02/2019 2:40 PM EST PATIENT: Blade Sanchez : 1940 DATE OF SERVICE: 09/02/2019 CHIEF COMPLAINT: Chief Complaint Patient presents with Surgical Followup f/u s/p insertion of retreivable IVC filter 08/20/19. Subjective HISTORY OF PRESENT ILLNESS: Blade Sanchez [...] 8 mm x 39 mm covered stent, [place] VBX stents). 2. Percutaneous transluminal balloon angioplasty of right and left common iliac artery, right and left external iliac artery with 6 mm x 40 mm [place] balloon. 3. Recanalization of occluded right common [...] extremity arteriogram. Reports he was readmitted to [facility] after surgery due to pneumonia and bilateral leg swelling. Currently residing at [facility] [place]. Denies any leg pain or cramping with walking or at rest. Using continuous oxygen at this time. Reports shortness of breath with activity. Has quit smoking at this time. Denies any chest pain, fever or chills. 09/02/2019: Patient seen in 10 day follow up from hospitalization due to GIB, discharged on 08/23/2019. Patient restarted on Xarelto 2 days ago. Will consider removing IVC filter in the Spring if tolerating oral anticoagulation. Patient with history of Atrial fibrillation and should continue anticoagulation per cardiology. Today he reports feeling fatigued. Denies any leg pain or cramping with walkingor at rest. His walking is limited by his shortness of breath, continuous oxygen at this time. Denies any chest pain, fever or chills. Status post: PROCEDURES: 1. Ultrasound-guided access of right common femoral vein. 2. Inferior venacavogram and pelvic venogram. 3. Insertion of RETRIEVABLE infrarenal inferior vena cava filter VIA right COMMON FEMORAL VEIN ACCESS. 4. Catheter in the inferior vena cava. 5. Fluoroscopy guidance for positioning of the inferior vena cava filter and radiological interpretation on 08/21/[address] Hunter. PREVIOUS DIAGNOSTICS: 08/20/2019 IMPRESSIONS: Hx: Right leg DVT. Venous duplex and compressions of the bilateral lower extremities shows evidence for acute, non occlusive venous thrombus in the right profunda femoral vein. No other deep or superficial thrombus was seen. No previous exam. 05/06/2019 IMPRESSIONS: Patient is status post bilateral lower extremity angioplasty. ABIS and PVRs of the bilateral lower extremity indicates mild bilateral occlusive arterial disease. PVRs of the bilateral thighs, calves, ankles, metetarsal and toe digits are mild. Biphasic bilateral DP/PTs. Right STARR 1.2, Left STARR :1.2 There is significant improvement since previous exam of 04/08/2019. 04/08/2019 Ankle brachial index: PVRs and dopplers [...] and dopplers can be viewed in the Pipe Organ Installer's office. I personally reviewed Computerized Tomographic angiography from [facility]:3.5 cm abdominal aortic aneurysm Occluded right common iliac artery and stenotic right external iliac artery, multi-segment right superficial femoral artery occlusion Past Medical History: Diagnosis Date Acute blood loss anemia 08/23/2019 Acute coronary syndrome (HCC) Back pain COPD (chronic obstructive pulmonary disease) ([facility]) Coronary artery disease DVT (deep venous thrombosis) ([facility]) 08/20/2019 GERD (gastroesophageal reflux disease) High cholesterol Hypertension Osteoarthritis PVD (peripheral vascular disease) ([facility]) History reviewed. No pertinent family history. Current Outpatient Medications Medication Sig albuterol (PROVENTIL, VENTOLIN) (2.5 MG/3ML) 0.083% Inhalation Nebu Soln 2.5 mg by Inhalation-SVN route TWICE DAILY. amLodipine (NORVASC) 5 MG Oral Tab Take 1 Tab by mouth DAILY. aspirin 81 MG Oral Tab EC Take 1 Tab by mouth DAILY. cyanocobalamin (VITAMIN B12) 1000 MCG Oral Tab Take 1 Tab by mouth DAILY. ferrous sulfate 325 (65 Fe) MG Oral Tab Take 1 Tab by mouth DAILY. furosemide (LASIX) 40 MG Oral Tab Take 20 mg by mouth DAILY. guaifenesin (MUCINEX) 600 MG Oral TABLET SR 12 HR Take 600 mg by mouth TWICE DAILY. HYDROcodone-acetaminophen (LORTAB) 7.5-325 MG/15ML Oral Solution Take 15 mL by mouth NEEDED. Ipratropium-Albuterol (COMBIVENT RESPIMAT IN) Take by inhalation. isosorbide MONOnitrate (IMDUR) 30 MG Oral TABLET SR 24 HR Take 3 Tabs by mouth DAILY. LORazepam (ATIVAN) 0.5 MG Oral Tab Take 0.5 mg by mouth NEEDED. metoprolol succinate (TOPROL XL) 50 MG Oral TABLET SR 24 HR Take 1 Tab by mouth TWICE DAILY. pantoprazole (PROTONIX) 40 MG Oral Tab EC Take 1 Tab by mouth TWICE DAILY. potassium chloride (KLOR-CON) 20 MEQ Oral Pack Take 10 mEq by mouth TWICE DAILY. Indications:Low Amount of Potassium in the Blood predniSONE (DELTASONE) 10 MG Oral Tab Take 10 mg by mouth DAILY. rivaroxaban (XARELTO) 15 MG Oral Tab Take 1 Tab by mouth TWICE DAILY. PT START MEDICATION AGAIN August 31/2019 simvastatin (ZOCOR) 40 MG Oral Tab Take 40 mg by mouth EVERY BEDTIME. Tiotropium Dawn-Olodaterol (STIOLTO RESPIMAT) 2.5-2.5 MCG/ACT Inhalation Aero Soln [...] Financial resource strain: Not on file Food insecurity Worry: Not on file Inability: Not on file Transportation needs Medical: Not on file Non-medical: Not on file Tobacco Use Smoking status: Former Smoker Packs/day: 1.00 Years: 64.00 Pack years: 64.00 Types: Cigarettes Start date: 1954 Last attempt to quit: 04/21/2019 Years since quittin.3 Smokeless tobacco: Never Used Tobacco comment: tapering down 3 yesterday Substance and Sexual Activity Alcohol use: Yes Alcohol/week: 3.0 standard drinks Types: 3 Cans of beer per week Frequency: 2-4 times a month Drinks per session: 1 or 2 Binge frequency: Never Comment: 1 shot a month Drug use: Never Sexual activity: Not on file Lifestyle Physical activity Days per week: Not on file Minutes per session: Not on file Stress: Not on file Relationships Social connections Talks on phone: Not on file Gets together: Not on file Attends congregational service: Not on file Active member of club or organization: Not on file Attends meetings of clubs or organizations: Not on file Relationship status: Not on file Intimate partner violence Fear of current or ex partner: Not [...] for dizziness. Objective PHYSICAL EXAM: VITALS: BP 140/66 (BP Location: Left arm, Patient Position: Sitting) | Pulse 66 | Ht 5' 7.75" (1.721 m) | Wt 150 lb (68 kg) | BMI 22.98 kg/m Body mass index is 22.98 kg/m. Physical Exam Constitutional: Appearance: He is well-developed. HENT: Head: Normocephalic. Neck: Musculoskeletal: Normal range of motion and neck supple. Cardiovascular: Rate and Rhythm: Regular rhythm. Pulses: Radial pulses are 2+ on the right side and 2+ on the left side. Femoral pulses are 1+ on the right side and 2+ on the left side. Dorsalis pedis pulses are 0 on the right side and 2+ on the left side. Posterior tibial pulses are 0 on the right side and 2+ on the left side. Comments: Bilateral lower extremity warm, right foot capillary refill decreased compared to left side, no ulceration or gangrene. Pulmonary: Effort: Pulmonary effort is normal. Abdominal: General: There is no distension. Palpations: Abdomen is soft. There is no mass. Musculoskeletal: Normal range of motion. Neurological: Mental Status: He is alert and oriented to person, place, and time. 05/06/2019: Alert and oriented X 3, Abdomen soft, large areas of ecchymosis, non- tender. Bilateral groin incisions without signs or symptoms of infection. Mild lower extremity edema left more than right. 09/02/2019: No change in physical exam. Alert and oriented X 3. Abdomen soft, non-tender. Bilateral lower extremities with mild edema. ASSESSMENT / IMPRESSION: 79 y/m with copd, severe right lower extremity peripheral atherosclerotic arterial disease with critical limb ischemia with no dopplerable right foot pulses, no tissue loss. Neuromotor intact. 3.5 cm abdominal aortic aneurysm. 05/06/2019: Patient status post bilateral common iliac artery stent placement and bilateral common iliac angioplasty and bilateral external iliac angioplasty. Progressing well, participating in physicaltherapy. 09/02/2019: Patient with IVC filter in place, now on Xarelto. Would like filter removed. ICD-9-CM ICD-10-CM 1. Presence of IVC filter V45.89 Z95.828 2. S/P insertion of iliac artery stent V45.89 Z95.828 VL BODY MEASURE STARR MULTIPLE Plan Critical limb ischemia of right lower [...] Continue Eliquis and Plavix at this time. 09/02/2019: Continue Xarelto. If no problems with recurrent bleeding, will re evaluate removing filter in the Spring. Follow up with Vascular Surgery at previously scheduled appointment in 10/2019 for STARR's, or sooner with problems. Author: Emiliano Miller NP 09/04/2019 08:12 documented in this encounter Plan of Treatment Date Type Specialty Care Team Description 11/11/2019 Ancillary Procedure Radiology 11/11/2019 Office Visit Vascular Surgery Guera Hunter MD 1 [place] [address] Name Type Priority Associated Diagnoses Order Schedule VL BODY MEASURE STARR Imaging Routine S/P insertion of iliac Expected: 2018, MULTIPLE artery stent Expires: 11/02/2020 Health Maintenance Due Date Last Done Comments MEDICARE ANNUAL WELLNESS VISIT 1940 DTaP/Tdap/Td Vaccines (1 - 02/18/1951 Tdap) DEPRESSION SCREENING 1952 HIV SCREENING 02/18/1955 ZOSTER IMMUNIZATION SERIES (1 02/18/1990 of 2) FALL RISK ASSESSMENT 02/18/2005 PNEUMOCOCCAL 65+YRS (1 of 2 - 02/18/2005 PCV13) INFLUENZA VACCINE (#1) 2019 Colonoscopy 08/22/2020 08/22/2019, 08/22/2019 HEPATITIS A IMMUNIZATION Aged Out No longer eligible based SERIES on patient's age to complete this topic HPV IMMUNIZATION SERIES Aged Out No longer eligible based on patient's age to complete this topic MENINGOCOCCAL VACCINE IMM Aged Out No longer eligible based on patient's age to complete this topic documented as of this encounter Implants Implanted Type Area Mold Yard Worker Device Shelf Model / Identifier Expiration Serial / Lot Date Viabahn Graft [id number] - [id number] Right: [employer] 2020 [id number] / Implanted: Qty: 1 on 04/21/2019 by Guera Hunter MD at [facility] [employer] [id number] / Description:Inserted in the right common iliac artery. Viabahn Graft [id number] Bx - [id number] Left: Iliac [employer] 12/23/2021 [id number] / Implanted: Qty: 1 on 04/21/2019 by Guera Hunter MD at [facility] [id number] / Vena Cava Celect Filter Retrievalable Fem - [id number] N/A: [employer] 05/20/2022 [id number] / Implanted: Qty: 1 on 08/20/2019 by Guera Hunter MD at [facility] Cava / [id number] documented as of this encounter Results Not on filedocumented in this encounter Visit Diagnoses Diagnosis Presence of IVC filter Other postprocedural status S/P insertion of iliac artery stent Other postprocedural status documented in this encounter Insurance Payer Benefit Plan / Subscriber ID Effective Dates Phone Address Type Group AETNA MEDICARE AETNA MEDICARE xxxxxxxx 2018-Present [employer] ADVANTAGE ADVANTAGE Guarantor Name Account Type Relation to Date of Phone Billing Address Patient Blade Sanchez Personal/Family 1940 [address] (Home) [facility] [phone] [place], [place] (Work) [address] documented as of this encounter
--- OUTSIDE RECORDS SUMMARY | 2019-09-07 17:45 | XMS REPORT ---
:1940 Author Organization [facility] Care Team Providers Name Role Phone Unavailable Unavailable Unavailable Problems Condition Condition Condition Status Onset Resolution Last Treating Comments Name Details Category Date Date Treatment Clinician Date Non-ST Non-ST Diagnosis Active 2018-09 CHOLO elevation elevation 2-03 MAGAZINESDORENE (NSTEMI) (NSTEMI) #117116 myocardial myocardial infarction infarction Pain frequent Pain Mgmt Active 2018-09 Mervat pain 2-12 (Dell) 10:30: [id number] Cardio edema Cardiovasc Active 2018-09 Mervat ular 2-12 (Dell) 10:30: [id number] Respiratory dyspnea Respirator Active 2018-09 Mervat present y 2-12 (Dell) 10:30: [id number] Respiratory oxygen Respirator Active 2018-09 Mervat treatments y 2-12 (Dell) in home 10:30: [id number] Endo/Alejandro anti-coagul Endo/Alejandro Active 2018-09 Mervat ation 2-12 (Dell) therapy 10:30: [id number] Integument skin Integument Active 2018-09 Mervat integrity 2-12 (Dell) risk 10:30: [id number] Nutrition nutritional Nutrition Active 2018-09 Mervat restriction 2-12 (Dell) s 10:30: [id number] Elimination urinary Eliminatio Active 2018-09 Mervat incontinenc n 2-12 (Dell) e 10:30: [id number] Elimination bowel Eliminatio Active 2018-09 Mervat incontinenc n 2-12 (Dell) e 10:30: [id number] Neuro confusion Neuro/Emot Active 2018-09 Mervat present ion 2-12 (Dell) 10:30: [id number] Neuro anxiety Neuro/Emot Active 2018-09 Mervat present ion 2-12 (Dell) 10:30: [id number] Neuro impaired Neuro/Emot Active 2018-09 Mervat decision-ma ion 2-12 (Dell) iva 10:30: [id number] Activity ADL Activity Active 2018-09 Mervat assistance 2-12 (Dell) required 10:30: [id number] Activity self-care Activity Active 2018-09 Mervat deficit 2-12 (Dell) 10:30: [id number] Safety fall risk Safety Active 2018-09 Mervat factor 2-12 (Dell) present 10:30: [id number] Safety risk for Safety Active 2018-09 Mervat hospitaliza 2-12 (Dell) tion 10:30: [id number] Safety can be left Safety Active 2018-09 Mervat alone for 2-12 (Dell) only short 10:30: Newell periods [id number] Medication oral med Meds Active 2018-09 Mervat assistance 2-12 (Dell) required 10:30: [id number] Medication potential Meds Active 2018-09 Mervat clinically 2-12 (Dell) significant 10:30: Newell medication [id number] issue Musculoskel transfer Musculoske Active 2018-09 Mervat etal assistance letal 2-12 (Dell) required 10:30: Newell [id number] Musculoskel requires Musculoske Active 2018-09 Mervat etal human letal 2-12 (Dell) assist to 10:30: Newell leave home [id number] Allergies, Adverse Reactions, Alerts Allergy Allergy Status [...] Unknown min (vit min (vit 2-12 Gal SAVAEG B-12) 1,000 B-12) 1,000 mcg tablet mcg [...] 2019-09-08 Xarelto 20 mg tablet [code = [id number]] Results This patient has no known results.
--- OUTSIDE RECORDS SUMMARY | 2019-09-07 17:46 | XMS REPORT ---
:1940 Author Organization [facility] Care Team Providers Name Role Phone Unavailable Unavailable Unavailable Problems This patient has no known problems. Allergies, Adverse Reactions, Alerts Allergy Allergy Status Severity Reaction(s) Onset Inactive Treating Comments Name Type Date Date Clinician Sulfa Allergen Active Unknown Nausea and 2019-08 Tere Beam (Sulfonam Group vomiting -03 joe Antibioti cs) Medications Ordered Filled Start Stop Current Ordering Indication Dosage Frequency Signature Comments Components Medication Medication Date Date Medication? Clinician (SIG) Name Name No Known No Known No None None None Medications Medications For This For This Patient Patient Procedures This patient has no known procedures. Results This patient has no known results.
--- OUTSIDE RECORDS SUMMARY | 2019-09-07 17:46 | XMS REPORT ---
:1940 Author Organization [facility] Care Team Providers Name Role Phone Unavailable Unavailable Unavailable Problems Condition Condition Condition Status Onset Resolution Last Treating Comments Name Details Category Date Date Treatment Clinician Date Non-ST Non-ST Diagnosis Active 2018-09 CHOLO elevation elevation 2-03 EMMITSBURGS-DORENE (NSTEMI) (NSTEMI) #[id number] myocardial myocardial infarction infarction Allergies, Adverse Reactions, Alerts Allergy Allergy Status [...]
--- OUTSIDE RECORDS SUMMARY | 2019-09-07 17:46 | XMS REPORT ---
:1940 Author Organization [facility] Care Team Providers Name Role Phone Unavailable [...]
--- OUTSIDE RECORDS SUMMARY | 2019-09-07 17:46 | XMS REPORT | Continuity of Care Document ---
:1940 External Reference #:[id number] Author Name Consuelo Mann N.P. Address [address] [facility] [address] [place] [address] Care Team Providers Name Role Phone Gal Stover MD - Family Medicine Care Team Information Chiropractic Care Problems Active Problems Provider Date Benign essential [...] Medications SIG Qnty Indications Ordering Date Provider Furosemide 1 by mouth every 7tabs R60.0 [facility] 08/25/2019 20mg Tablets day x 1 week M., MLuisDLuis Potassium Chloride ER One Cap PO qd In 30caps R60.0 Ck, timur 2018 Am M. MLuisD. 10Meq Capsules ER Lorazepam 1/2-1 tab by 28tabs J44.9 [facility] 06/25/2019 0.5mg Tablets mouth four times M., M.D. a day as needed sob/anxiety Ipratropium one inhalation 180ml [facility] 06/23/2019 [place]/Albuterol treatment every 4 M., M.D. Sulfate hour 0.5-2.5(3)mg/3ML Solution Prednisone 2 tab by mouth 20tabs J18.9 [facility] 06/20/2019 20mg Tablets daily 4 M., M.D. days,30x3d,20x2d, 10x7d Hydrocodone-Acetamino 1 tab by mouth 60tabs J18.9 [facility] 06/20/2019 phen three times a day M., M.D. 7.5-325mg Tablets as needed Fluconazole 1 tab by mouth 2tabs J18.9 [facility], [facility] 06/20/2019 150mg today and january Marla MLuisDLuis Tablets repeat iLAST Day Of Abx Erythromycin apply thin layer 7gm [facility] 05/26/2019 5mg/GM on lesion under l MLuis MGallo Ointment eye 4x daily x 2 weeks Oxygen Generator for continuous J44.9 Ck, [facility] 05/21/2019 oxygen titirate Nelly Gutiérrez up to 4L to maintain o2 sat between 88-96% Nicoderm CQ Uad 28units F17.293 [facility] 05/21/2019 7mg/24HR Nelly Gutiérrez Patches 24HR Aspirin 81 Low Dose 1 by mouth every 90units I10 [facility] 03/10/2019 morning Nelly Gutiérrez 81mg Chewtabs Bacitracin Zinc apply to wound on 28.350gm L89.312 [facility] 03/07/2019 buttocks bid x 14 M. MLuisD. 500Unit/GM Ointment days. after washing with soap and water and pad dry. Combivent Respimat 1 puff twice a 12gm J44.9 [facility] 11/21/2018 day Nelly Gutiérrez 20-100mcg/Act Aerosol Prednisolone Acetate 1 drops both eyes 10ml H10.45 [facility] 08/06/2018 1% twice a day as Nelly Gutiérrez Suspension needed Nebulizer use as directed 1units J44.9 [facility] 01/21/2018 Device Nelly Gutiérrez Nebulizer use with 2units J44.9 [facility] 01/21/2018 Kit/Tubing/Mouthpiece nebulizer every 4 M., M.DLuis hours as needed Kit Betamethasone apply to affected 45gm L20.9 [facility] 12/05/2017 Dipropionate area ( Face) Nelly Gutiérrez 0.05% three times a day Cream as needed Simvastatin 1 by mouth every 90tabs E78.2 [facility] 03/27/2017 40mg night M. MLuisDLuis Tablets Metoprolol Tartrate 1 tab by mouth 90tabs I10 [facility] 11/16/2016 every day M. M.D. 100mg Tablets Losartan tab one by mouth 90tabs I10 [facility] 03/31/2014 Potassium/Hydrochloro every in the M., M.D. thiazide morning 100-25mg Tablets R60.0 I87.2 Omeprazole 1 by mouth every 90caps K21.0 Gal Stover, 01/16/[address] day M.DLuis K30 History Medications Amoxicillin/Clavulanate 1 tab by 60tafrantz J01.40 Ck, [facility] 08/01/2019 - Potassium mouth twice M., M.D. 08/24/2019 875-125mg Tablets a day Azithromycin 1 tab by 10tabs J18.9 Ck, [facility] 06/20/2019 - 500mg Tablets mouth every M., M.D. 07/01/2019 day x 10 days Guiatuss 30ml by 946ml Ck, [facility] 05/27/2019 - 100mg/5ML Syrup mouth twice M., M.D. 06/19/2019 a day x 10 days Azithromycin 1 tab by 10tabs Gal Stover 03/17/2019 - 500mg Tablets mouth every M., M.D. 04/22/2019 day x 10 days Amoxicillin/Clavulanate 1 tab by 14tabs J02.9 Ck tim[facility] 03/10/2019 - Potassium mouth twice M., M.D. 03/16/2019 875-125mg Tablets a day Medications Administered in Office Medication SIG Qnty Indications Ordering Provider Date Solu-Medrol Up To 40MG Consuelo Mann, N.PLuis 06/25/2019 Injection Rocephin 250 Consuelo Mann N.PLuis 06/23/2019 Injection Solu-Medrol Up To 40MG Consuelo Mann N.PLuis 06/20/2019 Injection Rocephin 250 Romeo Richards.Deborah 06/20/2019 Injection Solu-Medrol Up To 40MG Consuelo Mann N.PLuis 10/21/2018 Injection Rocephin 250 Gal Stover M.D. 07/30/2018 Injection Rocephin 250 Consuelo Mann N.Deborah 05/01/2018 Injection Solu-Medrol 125MG Gal Stover M.D. 12/20/2017 Injection Rocephin 250 Gal Stover M.D. 12/20/2017 Injection Admin Of Pneumovax Gal Stover M.D. 08/19/2015 Injection B12 Gal Stover M.D. 08/17/2011 Injection Immunizations CPT Code Status Date Vaccine Lot # [id number] Given 07/11/2019 Flu Virus Vaccine, Quadrivalent, Slit Virus, Im [id number] Use U-Flu Given 07/02/2018 Influenza,Unspecified [id number] Given 07/11/2016 Flu Vaccine 3+Yrs Old(Fluzone) [id number] Given 12/02/2015 Zoster Shingles Vaccine For Injection Q2038 Given 08/19/2015 Flu Vaccine 3+Yrs Old(Fluzone) [id number] Given 08/19/2015 Pneumovax [id number] 54810 Given 08/19/2015 Flu Vaccine [id number] 23918 Given 06/27/2014 Flu Vaccine [id number] Given 07/31/2013 Flu Vaccine 3+Yrs Old(Fluzone) [id number] Q2038 Given 07/04/2012 Flu Vaccine 3+Yrs Old(Fluzone) [id number] [id number] Given 09/16/2009 Admin Of Influenza [id number] Given 08/08/2006 Flu Vaccine [id number] Given 07/31/2003 Pneumovax [id number] Vital Signs Date Vital Result Comment 08/25/2019 1:17pm BP Systolic 105 mmHg BP Diastolic 55 mmHg Height 68 inches 5'8" Weight 165.00 lb BMI (Body Mass Index) 25.1 kg/m2 Heart Rate 90 /min Respiratory Rate 17 /min 08/01/2019 10:48am BP Systolic 142 mmHg BP Diastolic 64 mmHg Height 68 inches 5'8" Weight 152.00 lb BMI (Body Mass Index) 23.1 kg/m2 Heart Rate 88 /min Respiratory Rate 16 /min Results Test Acquired Date Facility Test Result H/L Range Note CBC Auto 08/19/2019 [facility] White Blood 16.6 10^3/uL High 3.5- 10.8 Diff Count Red Blood Count 4.08 10^6/uL Low 4.18-5.48 Hemoglobin 10.9 g/dL Low 14.0-18.0 Hematocrit 34 % Low 42-52 Mean Corpuscular Volume 84 fL Normal 80-94 Mean Corpuscular Hemoglobin 27 pg Normal 27-31 Mean Corpuscular HGB Conc 32 g/dL Normal 31-36 Red Cell Distribution Width 20 % High 10-15 Platelet Count 357 10^3/uL Normal 150-450 Mean Platelet Volume 7.4 fL Normal 7.4-10.4 Abs Neutrophils 15.2 10^3/uL High 1.5-7.7 Abs Lymphocytes 0.4 10^3/uL Low 1.0-4.8 Abs Monocytes 0.8 10^3/uL Normal 0-0.8 Abs Eosinophils 0.0 10^3/uL Normal 0-0.6 Abs Basophils 0.2 10^3/uL Normal 0-0.2 Abs Nucleated RBC 0.0 10^3/uL Granulocyte % 91.5 % Lymphocyte % 2.5 % Monocyte % 4.9 % Eosinophil % 0.0 % Basophil % 1.1 % Nucleated Red Blood Cells % 0.0 Basic Metabolic Panel 08/19/2019 [facility] Sodium 138 mmol/L Normal 135-145 Potassium 4.1 mmol/L Normal 3.5-5.0 Chloride 101 mmol/L Normal 101-111 Co2 Carbon Dioxide 31 mmol/L Normal 22-32 Anion Gap 6 mmol/L Normal 2-11 Glucose 123 mg/dL High 70-100 Blood Urea Nitrogen 26 mg/dL High 6-24 Creatinine 1.01 mg/dL Normal 0.67-1.17 BUN/Creatinine Ratio 25.7 High 8-20 Calcium 8.7 mg/dL Normal 8.6-10.3 Egfr Non- 71.3 >60 Egfr 86.2 >60 1 Stool Occult Blood, 08/19/2019 [facility] Stool Occult SEE RESULT 2 Screen Blood, Screen BELOW Urine Culture And 08/06/2019 [facility] Urine Culture SEE RESULT 3 Sensitivities BELOW Urinalysis Profile 08/06/2019 [facility] Urine Color Yellow Urine Appearance Cloudy Urine Specific Isabel 1.026 Normal 1.010-1.030 Urine pH 5.0 Normal 5-9 Urine Urobilinogen Negative Negative Urine Ketones Trace Abnormal Negative Urine Protein 1+(30 mg/dL) Abnormal Negative Urine Leukocytes Negative Negative Urine Blood Negative Negative Urine Nitrite Negative Negative Urine Bilirubin Negative Negative Urine Glucose Negative Negative Urine White Blood Cell Trace(0-5/hpf) Absent Urine Red Blood Cell Absent Absent Urine Bacteria Absent Absent Urine Hyaline Casts Present Abnormal Absent Laboratory test 08/06/2019 [facility] Blood Culture SEE RESULT 4 finding BELOW CBC Auto Diff 08/06/2019 [facility] White Blood 21.3 10^3/uL High 3.5 -10. Count 8 Red Blood Count 4.35 10^6/uL Normal 4.18-5.48 Hemoglobin 11.9 g/dL Low 14.0-18.0 Hematocrit 37 % Low 42-52 Mean Corpuscular Volume 84 fL Normal 80-94 Mean Corpuscular Hemoglobin 27 pg Normal 27-31 Mean Corpuscular HGB Conc 33 g/dL Normal 31-36 Red Cell Distribution Width 19 % High 10-15 Platelet Count 231 10^3/uL Normal 150-450 Mean Platelet Volume 7.0 fL Low 7.4-10.4 Abs Neutrophils 18.4 10^3/uL High 1.5-7.7 Abs Lymphocytes 0.9 10^3/uL Low 1.0-4.8 Abs Monocytes 2.0 10^3/uL High 0-0.8 Abs Eosinophils 0.0 10^3/uL Normal 0-0.6 Abs Basophils 0.0 10^3/uL Normal 0-0.2 Abs Nucleated RBC 0.0 10^3/uL Granulocyte % 86.1 % Lymphocyte % 4.2 % Monocyte % 9.5 % Eosinophil % 0.0 % Basophil % 0.2 % Nucleated Red Blood Cells % 0.0 Laboratory test 08/06/2019 [facility] Troponin-I 0.14 ng/mL Critical high <0.03 5 finding (TnI) Lactic Acid 2.2 mmol/L Critical high 0.5-2.0 6 Comp Metabolic Panel 08/06/2019 [facility] Sodium 131 mmol/L Low 135- 145 Potassium 3.9 mmol/L Normal 3.5-5.0 Chloride 98 mmol/L Low 101-111 Co2 Carbon Dioxide 26 mmol/L Normal 22-32 Anion Gap 7 mmol/L Normal 2-11 Glucose 111 mg/dL High 70-100 Blood Urea Nitrogen 21 mg/dL Normal 6-24 Creatinine 1.03 mg/dL Normal 0.67-1.17 BUN/Creatinine Ratio 20.4 High 8-20 Calcium 9.1 mg/dL Normal 8.6-10.3 Total Protein 6.2 g/dL Low 6.4-8.9 Albumin 3.1 g/dL Low 3.2-5.2 Globulin 3.1 g/dL Normal 2-4 Albumin/Globulin Ratio 1.0 Normal 1-3 Total Bilirubin 0.90 mg/dL Normal 0.2-1.0 Alkaline Phosphatase 55 U/L Normal 34-104 Alt 10 U/L Normal 7-52 Ast 12 U/L Low 13-39 Egfr Non- 69.7 >60 Egfr 84.3 >60 7 Inr/Protime 08/06/2019 [facility] Inr 1.20 High 0.82-1.09 8 Type & Screen 08/06/2019 [facility] Patient Blood B Negative 9 Type Antibody Screen NEGATIVE Laboratory test 08/06/2019 [facility] Partial 37.1 seconds Normal 26.0-38.0 finding Thrombo Time PTT Lactic Acid 1.5 mmol/L Normal 0.5-2.0 10 Laboratory test 08/06/2019 [facility] Troponin-I 0.15 Critical <0.03 11 finding (TnI) ng/mL high Creatinine 08/06/2019 [facility] Creatinine 0.93 Normal 0.67-1.17 mg/dL Egfr Non- 78.4 >60 Egfr 94.8 >60 12 Laboratory test 08/06/2019 [facility] Blood Urea 20 mg/dL Normal 6- 24 finding Nitrogen BUN CBC Auto Diff 08/06/2019 [facility] White Blood 18.8 High 3.5-10.8 Count 10^3/uL Red Blood Count 4.16 10^6/uL Low 4.18-5.48 Hemoglobin 11.3 g/dL Low 14.0-18.0 Hematocrit 35 % Low 42-52 Mean Corpuscular Volume 85 fL Normal 80-94 Mean Corpuscular Hemoglobin 27 pg Normal 27-31 Mean Corpuscular HGB Conc 32 g/dL Normal 31-36 Red Cell Distribution Width 20 % High 10-15 Platelet Count 208 10^3/uL Normal 150-450 Mean Platelet Volume 7.5 fL Normal 7.4-10.4 Abs Neutrophils 16.1 10^3/uL High 1.5-7.7 Abs Lymphocytes 1.1 10^3/uL Normal 1.0-4.8 Abs Monocytes 1.5 10^3/uL High 0-0.8 Abs Eosinophils 0.0 10^3/uL Normal 0-0.6 Abs Basophils 0.1 10^3/uL Normal 0-0.2 Abs Nucleated RBC 0.0 10^3/uL Granulocyte % 85.9 % Lymphocyte % 5.9 % Monocyte % 7.9 % Eosinophil % 0.0 % Basophil % 0.3 % Nucleated Red Blood Cells % 0.0 Protein 07/28/2019 [facility] Total Protein(Pep) 6.8 g/dL 6.3 - 7.9 Electrophoresis Albumin 3.3 g/dL Abnormal 3.4-4.7 Alpha-1 Globulin 0.3 g/dL 0.1-0.3 Alpha-2 Globulin 1.0 g/dL 0.6-1.0 Beta Globulin 1.1 g/dL 0.7-1.2 Gamma Globulin 1.2 g/dL 0.6-1.6 Albumin/Globulin Ratio 0.93 Impression See Comment 13 Laboratory test finding 07/28/2019 [facility] Ferritin 36.9 ng/mL Normal 24-336 Folic Acid (Folate) > 20.00 ng/mL >3.99 Vitamin B12 270 pg/mL Normal 180-914 14 Iron & Iron Binding Capacity 07/28/2019 [facility] Iron 43 g/dL Low 50-212 Unsaturated Iron Binding < 331 g/dL Total Iron Binding Capacity 346 g/dL Normal 250-450 Transferrin 247 mg/dL Normal 203-362 % Iron Saturation 12 % Low 15-55 CBC Auto Diff 07/28/2019 [facility] White Blood 15.3 10^3/uL High 3.5 [...] % Nucleated Red Blood Cells % 0.1 CBC With Diff 06/20/2019 [facility] WBC 15.0 10*3/uL High (4.1-11.0) 113 [employer] [...] (0.0-11.0) Lymph % 3.0 % Low (16.0-52.0) [place] % 14.0 % High (0.0-8.0) Neut # 12.3 10*3/uL High (1.8-7.7) Band # 0.2 10*3/uL Lymph # 0.5 10*3/uL Low (1.2-4.8) [place] # 2.1 10*3/uL High (0.0-0.8) Aniso 1+ Poik 1+ Poly 1+ Large PLT 1+ Diff Comment SLIDE REVIEWED B <SEE NOTE> 15 CMP 06/20/2019 [facility] Sodium 132 mmol/L Low (136-145) 113 [employer] [...] ml/min/1.73m2 Low (>59) GFR Interpretation <SEE NOTE> 16 Lipid 06/20/2019 [facility] Cholesterol @ 125 mg/dL (0-200) 113 [facility]EL[facility] (607)- - Triglyceride @ 90 mg/dL (30-200) HDL Cholesterol @ 36 mg/dL Low (>40) 17 Chol/HDL Ratio 3.5 RATIO 18 LDL Chol (Calc) 71 mg/dL (<130) 19 Laboratory 06/20/2019 [facility] TSH,Ultrasensitive @ 3.660 (0.360- 4.170) test finding 113 [employer]EL[facility] mIU/L (607)- - Free Thyroxine @ 1.34 ng/dL (0.76-1.46) Laboratory test 05/15/2019 [facility] SEE RESULT 20 finding Pathology Order BELOW Laboratory test 05/14/2019 [facility] SEE RESULT 21 finding Pathology Order BELOW Laboratory test 05/13/2019 [facility] Lipase 224 U/L Normal 56-289 22 finding NT-proBNP 2852.0 pg/mL High <450 Comprehensive Metabolic Panel 05/13/2019 [facility] Glucose 105 mg/dL Normal 74-106 BUN 18 mg/dL Normal 7-18 Creatinine 1.2 mg/dL Normal 0.6-1.3 Glom Filtration Rate, Estimate >60 mL/min >60 If >60 mL/min >60 23 BUN/Creat 15.0 ratio Sodium 139 mmol/L Normal [...] 12-78 Alkaline Phosphatase 51 U/L Normal 45-117 Lactic Acid 05/13/2019 [facility] Lactic Acid 2.8 mmol/L Critical high 0.4- 1.9 Lab Reflex >2.0 for Sepsis? Y CBS W/Automated Diff 05/13/2019 [facility] White Blood Count 12.1 K/uL High 3.4-10.5 [...] 33.0-73.0 Lymph % 5.6 % Low 20.0-42.0 [place] % 4.6 % Normal 0.0-10.0 Eo% 0.6 % Normal 0.0-6.6 Bas% 0.2 % Normal 0.0-1.1 Immature Grans 1.1 % Normal 0.0-5.0 NRBC % 0.0 /100WBC < 10/ 100 WBC Neut# 10.68 K/uL High 1.8-7.0 Lymph # 0.68 K/uL Low 1.0-4.0 [place] # 0.56 K/uL Normal 0.0-0.8 Eos # 0.07 K/uL Normal 0.0-0.5 Baso # 0.02 K/uL Normal 0.0-0.1 Immature Grans Absolute 0.13 K/uL NRBC # 0.00 K/uL Ua RFX Micro & Culture II 05/13/2019 [facility] Urine Color YELLOW Yellow Urine Clarity CLEAR Clear Urine Glucose - Dipstick NEGATIVE mg/dL Negative Urine Bilirubin - Dipstick NEGATIVE Negative Urine Ketone NEGATIVE mg/dL Negative Urine Specific Isabel 1.010 Normal 1.010-1.030 Urine Blood NEGATIVE Negative Urine PH 6.5 Normal 6.5-7.5 Urine Protein - Dipstick NEGATIVE mg/dL Negative Urine Urobilinogen - Dipstick 0.2 E.U./dL Normal 0.2-1.0 Urine Nitrite - Dipstick NEGATIVE Negative Urine Leuk Esterase NEGATIVE Negative Source: URINE, CLEAN CAT <SEE NOTE> 24 Laboratory test 05/13/2019 [facility] Occult POSITIVE Abnormal Negative 25 finding Blood,Stool Laboratory test 05/12/2019 [facility] Occult POSITIVE Abnormal Negative 26 , 27 finding Blood,Stool Laboratory test 05/11/2019 [facility] Occult NEGATIVE Negative 28, 29 finding Blood,Stool CBC 05/01/2019 [facility] White Blood 14.4 K/uL High 3.4-10.5 30 Count Red Blood Count 3.27 M/uL Low [...] 10/ 100 WBC Basic Metabolic Panel 05/01/2019 [facility] Glucose 119 mg/dL High 74-106 BUN 36 mg/dL High 7-18 Creatinine 1.1 mg/dL Normal 0.6-1.3 Glom Filtration Rate, Estimate >60 mL/min >60 If >60 mL/min >60 31 BUN/Creat 32.7 ratio Sodium 139 mmol/L Normal 136-145 Potassium 3.2 mmol/L Low 3.5-5.1 Chloride 101 mmol/L Normal 98-107 Carbon Dioxide 33 mmol/L High 21-32 Anion Gap 5 mEq/L Low 8-16 Calcium 8.9 mg/dL Normal 8.5-10.1 Basic Metabolic Panel 04/29/2019 [facility] Glucose 130 mg/dL High 74-106 32 BUN 30 mg/dL High 7-18 Creatinine 1.0 mg/dL Normal 0.6-1.3 Glom Filtration Rate, Estimate >60 mL/min >60 If >60 mL/min >60 33 BUN/Creat 30.0 ratio Sodium 140 mmol/L Normal 136-145 Potassium 4.0 mmol/L Normal 3.5-5.1 Chloride 105 mmol/L Normal 98-107 Carbon Dioxide 27 mmol/L Normal 21-32 Anion Gap 8 mEq/L Normal 8-16 Calcium 9.1 mg/dL Normal 8.5-10.1 Basic Metabolic Panel 04/28/2019 [facility] Glucose 115 mg/dL High 74-106 BUN 31 mg/dL High 7-18 Creatinine 1.0 mg/dL Normal 0.6-1.3 Glom Filtration Rate, Estimate >60 mL/min >60 If >60 mL/min >60 34 BUN/Creat 31.0 ratio Sodium 141 mmol/L Normal 136-145 Potassium 4.1 mmol/L Normal 3.5-5.1 Chloride 107 mmol/L Normal 98-107 Carbon Dioxide 26 mmol/L Normal 21-32 Anion Gap 8 mEq/L Normal 8-16 Calcium 8.4 mg/dL Low 8.5-10.1 CBS W/Automated Diff 04/27/2019 [facility] White Blood Count 13.8 K/uL High 3.4-10.5 [...] 33.0-73.0 Lymph % 3.3 % Low 20.0-42.0 [place] % 5.7 % Normal 0.0-10.0 Eo% 0.6 % Normal 0.0-6.6 Bas% 0.2 % Normal 0.0-1.1 Immature Grans 1.9 % Normal 0.0-5.0 NRBC % 0.3 /100WBC < 10/ 100 WBC Neut# 12.21 K/uL High 1.8-7.0 Lymph # 0.45 K/uL Low 1.0-4.0 [place] # 0.79 K/uL Normal 0.0-0.8 Eos # 0.08 K/uL Normal 0.0-0.5 Baso # 0.03 K/uL Normal 0.0-0.1 Immature Grans Absolute 0.26 K/uL NRBC # 0.04 K/uL Basic Metabolic Panel 04/27/2019 [facility] Glucose 129 mg/dL High 74-106 BUN 27 mg/dL High 7-18 Creatinine 0.9 mg/dL Normal 0.6-1.3 Glom Filtration Rate, Estimate >60 mL/min >60 If >60 mL/min >60 35 BUN/Creat 30.0 ratio Sodium 139 mmol/L Normal 136-145 Potassium 3.6 mmol/L Normal 3.5-5.1 Chloride 106 mmol/L Normal 98-107 Carbon Dioxide 23 mmol/L Normal 21-32 Anion Gap 10 mEq/L Normal 8-16 Calcium 8.6 mg/dL Normal 8.5-10.1 Basic Metabolic Panel 04/26/2019 [facility] Glucose 124 mg/dL High 74-106 BUN 26 mg/dL High 7-18 Creatinine 0.8 mg/dL Normal 0.6-1.3 Glom Filtration Rate, Estimate >60 mL/min >60 If >60 mL/min >60 36 BUN/Creat 32.5 ratio Sodium 140 mmol/L Normal 136-145 Potassium 3.9 mmol/L Normal 3.5-5.1 Chloride 108 mmol/L High 98-107 Carbon Dioxide 25 mmol/L Normal 21-32 Anion Gap 7 mEq/L Low 8-16 Calcium 8.3 mg/dL Low 8.5-10.1 Lactic Acid 04/25/2019 [facility] Lactic Acid 1.4 mmol/L Normal 0.4-1.9 Lab Reflex >2.0 for Sepsis? N Basic Metabolic Panel 04/25/2019 [facility] Glucose 133 mg/dL High 74-106 BUN 18 mg/dL Normal 7-18 Creatinine 0.8 mg/dL Normal 0.6-1.3 Glom Filtration Rate, Estimate >60 mL/min >60 If >60 mL/min >60 37 BUN/Creat 22.5 ratio Sodium 138 mmol/L Normal 136-145 Potassium 3.5 mmol/L Normal 3.5-5.1 Chloride 105 mmol/L Normal 98-107 Carbon Dioxide 24 mmol/L Normal 21-32 Anion Gap 9 mEq/L Normal 8-16 Calcium 8.4 mg/dL Low 8.5-10.1 CBS W/Automated Diff 04/24/2019 [facility] White Blood 10.4 K/uL Normal 3.4 -10.5 [...] 33.0-73.0 Lymph % 3.5 % Low 20.0-42.0 [place] % 1.4 % Normal 0.0-10.0 Eo% 0.0 % Normal 0.0-6.6 Bas% 0.0 % Normal 0.0-1.1 Immature Grans 0.7 % Normal 0.0-5.0 NRBC % 0.0 /100WBC < 10/ 100 WBC Neut# 9.79 K/uL High 1.8-7.0 Lymph # 0.36 K/uL Low 1.0-4.0 [place] # 0.14 K/uL Normal 0.0-0.8 Eos # 0.00 K/uL Normal 0.0-0.5 Baso # 0.00 K/uL Normal 0.0-0.1 Immature Grans Absolute 0.07 K/uL NRBC # 0.00 K/uL Laboratory test 04/24/2019 [facility] Lactic Acid 1.8 mmol/L Normal 0.4- 1.9 finding Lactic Acid 04/24/2019 [facility] Lactic Acid 2.2 mmol/L Critical high 0.4- 1.9 Lab Reflex >2.0 for Sepsis? Y Blood Culture 04/23/2019 [facility] Blood Culture Aerobic NO GROWTH: FINAL < SEE 38 NOTE> Blood Culture Anaerobic NO GROWTH: FINAL <SEE NOTE> 39 Aot Request 04/23/2019 [facility] Aot Request Test(s) added 40, 41 Tests to be added: crp Lactic Acid 04/23/2019 [facility] Lactic Acid 3.6 mmol/L Critical high 0.4- 1.9 Lab Reflex >2.0 for Sepsis? Y Laboratory test 04/23/2019 [facility] D-Dimer, Quantitative 3.18 ug/mL 42 finding Blood Culture 04/23/2019 [facility] Blood Culture Aerobic NO GROWTH: 43 , 44 FINAL <SEE NOTE> Blood Culture Anaerobic NO GROWTH: FINAL <SEE NOTE> 45 Lactic Acid 04/23/2019 [facility] Lactic Acid 2.2 mmol/L Critical high 0.4- 1.9 Lab Reflex >2.0 for Sepsis? Y CBC With Diff 03/10/2019 [facility] WBC 14.5 10*3/uL High (4.1-11.0) 113 [employer] DANIELLE (607)- - RBC 4.61 10*6/uL (4.60-6.10) HGB 14.8 g/dL (13.5-18.0) HCT 44.5 % (41.0-53.0) MCV 96.7 fL High (80.0-95.0) MCH 32.1 pg High (27.0-32.0) MCHC 33.2 g/dL (32.0-36.0) RDW 14.2 % (10.5-14.5) PLT 301 10*3/uL (150-450) MPV 7.1 fL (7.1-10.7) Neut % 68.0 % (35.0-75.0) Lymph % 21.1 % (16.0-52.0) [place] % 9.9 % High (0.0-8.0) Eos % 0.5 % (0.0-5.0) Baso % 0.5 % (0.0-4.0) Neut # 9.9 10*3/uL High (1.8-7.7) Lymph # 3.1 10*3/uL (1.2-4.8) [place] # 1.4 10*3/uL High (0.0-0.8) Eos # 0.1 10*3/uL (0.0-0.5) Baso # 0.1 10*3/uL (0.0-0.2) CMP 03/10/2019 [facility] Sodium 141 mmol/L (136-145) 113 [facility] D[facility]ELLE [...] >60 ml/min/1.73m2 (>59) GFR Interpretation <SEE NOTE> 46 Laboratory test 03/10/2019 [facility] Magnesium 1.7 mg/dL (1.7-2.4) finding 113 LAYSE SANTOS (607)- - Lipid Extended Panel 03/10/2019 [facility] Appearance CLEAR (Clear) 113 [facility] (607)- - Cholesterol @ 170 mg/dL (0-200) Triglyceride @ 137 mg/dL (30-200) HDL Cholesterol @ 71 mg/dL (>40) 47 Chol/HDL Ratio 2.4 RATIO 48 Direct LDL @ 85 mg/dL (<130) 49 VLDL (Calc) 14 mg/dL (0-30) Laboratory test 03/10/2019 [facility] 25 Hydroxy 20 ng/mL Low (31-100) 50 finding 113 ALYSE SANTOS Vit D @ (607)- - PSA Free And 03/10/2019 [facility] PSA Total 4.6 ng/mL High (0.0-4.0) Total 113 [facility] DANIELLE (607)- - PSA Free 0.9 ng/mL PSA % Free 20 % 51 Laboratory test 03/10/2019 [facility] Rheumatoid Factor <15 IU/mL (0- 15) finding 113 [employer] DANIELLE @ (607)- - C Reactive Protein @ 0.5 mg/dL (0.0-0.5) Esr 8 mm/h (0-20) Uric Acid 6.8 mg/dL (3.5-7.2) TSH,Ultrasensitive @ 1.940 mIU/L (0.360-4.170) 1 Because ethnic data is not always readily [...] 15-29 5 Kidney failure <15 (or dialysis) 2 SEE RESULT BELOW Name: BLADE SANCHEZ : [address]: Babak Castillo MD Acct: [id number] Unit: [id number] AGE: 79 Location: ED Re08/19/19 SEX: M Status: REG ER SPEC: [id number] KRISTI: 08/19/[address]: Babak Castillo MD REQ: [id number] RECD: 08/19/19 STATUS: ALBERT VALLADARES DR: Consuelo Mann PROCESSING ASSOCIATE _ SOURCE: STOOL SPDESC: ORDERED: Occult Bl, Scn Procedure Result Reported Site Stool Occult Blood (1) Final 08/19/19- 2015 ML Stool Occult Blood Positive * ML - [facility] . END OF REPORT DEPARTMENT OF PATHOLOGY, [address] [place] [address] Abraham Cat M.D. Director [facility] # [id number] 3 SEE RESULT BELOW Name: BLADE SANCHEZ : [address]: Mal Gan MD Acct: [id number] Unit: [id number] AGE: 79 Location: [place] [address] Re08/06/19 SEX: M Status: ADM IN SPEC: [id number] KRSITI: 08/08/[address] [facility] [address]: Daniel Copeland MD REQ: [id number] RECD: 08/08/19 STATUS: ALBERT VALLADARES DR: Consuelo Mann PROCESSING ASSOCIATE _ SOURCE: URINE SPDESC: ORDERED: Urine Culture Procedure Result Reported Site Urine Culture Final 08/09/19- 0918 ML No Growth (<1,000 CFU/mL) * ML - Main Lab . END OF REPORT DEPARTMENT OF PATHOLOGY, [address] [place] [address] Abraham Cat M.D. Director [facility] # [id number] 4 SEE RESULT BELOW Name: BLADE SANCHEZ : [address]: Yobany Del Rosario MD Acct: [id number] Unit: [id number] AGE: 79 Location: [place] [address] Re08/06/19 SEX: M Status: ADM IN SPEC: [id number] KRISTI: 08/06/[address]: Daniel Copeland MD REQ: [id number] RECD: 08/06/19 STATUS: ALBERT VALLADARES DR: Consuelo Mann PROCESSING ASSOCIATE _ SOURCE: BLOOD,VENO SPDESC: ORDERED: Blood Cult Procedure Result Reported Site Aerobic Culture Bottle Final 08/11/19- 1625 ML No Growth Day 5 Anaerobic Culture Bottle Final 08/11/19- 1625 ML No Growth Day 5 * ML - Main Lab . END OF REPORT DEPARTMENT OF PATHOLOGY, [address] [place] [address] Abraham Cat M.D. Director [facility] # [id number] 5 Result TnIDx:0.14 Called to [employer] at: 16:43:03 by:[id number] Read back by: [id number] Troponin-I testing on Plasma Separator Tubes (PST) has a known false positive rate of 0.20-0.40%. All positive troponins reflex immediately to secondary confirmatory testing. Using the iwoca DxI 800 Access Immunoassay systems, the 99th percentile upper reference limit was demonstrated to be < 0.03 ng/mL. 6 Critical Result LACT:2.2 Called to [employer] at: 16:43:39 by:[id number] Read back by:[id number] [facility] Severe Sepsis and Septic Shock Management Bundle Measure requires all lactic acids initially measuring >2.0 mmol/L be repeated. 7 Because ethnic data is not always readily [...] 15-29 5 Kidney failure <15 (or dialysis) 8 Standard intensity warfarin therapeutic range: 2.0-3.0 High intensity warfarin therapeutic range: 2.5-3.5 9 SOB/COUGHING UP BLOOD PER PT DAUGHTER 10 [place] Severe Sepsis and Septic Shock Management Bundle Measure requires all lactic acids initially measuring >2.0 mmol/L be repeated. 11 Result TnIDx:0.15 Called to [id number] at: 20:25:40 by:[id number] Read back by: [id number] Troponin-I testing on Plasma Separator Tubes (PST) has a known false positive rate of 0.20-0.40%. All positive troponins reflex immediately to secondary confirmatory testing. Using the [employer] DxI 800 Access Immunoassay systems, the 99th percentile upper reference limit was demonstrated to be < 0.03 ng/mL. 12 Because ethnic data is not always readily [...] 15-29 5 Kidney failure <15 (or dialysis) 13 RESULT: No apparent monoclonal protein on serum electrophoresis. Test Performed by: [email or web address] - [facility] [address] [place] [address] Truck Engine Technician: Consuelo Mayes M.D. Ph.D.; CLIA# [id number] 14 Normal Range 180 to 914 Indeterminate Range 145 to 180 Deficient Range <145 15 SLIDE REVIEWED BY FIXED CAPITAL CLERK [id number] 10.7.19. 16 NORMAL KIDNEY FUNCTION OR MILD DISEASE - GFR >OR= 60 CHRONIC KIDNEY DISEASE - GFR 15 - 59 RENAL FAILURE - GFR <15 Est. GFR calculation based on the MDRD study equation, which assumes a steady state for creatinine. Est. GFR should not be used for medication dosing. 17 PER NCEP ATP III GUIDELINES: RESULTS LOWER THAN 40 MG/DL ARE SUGGESTIVE OF INCREASED RISK FOR CORONARY ARTERY DISEASE. RESULTS > OR = TO 60 MG/DL ARE CONSIDERED A NEGATIVE RISK FACTOR. 18 INTERPRETATION OF CHOL-HDL RATIO CHD RISK FEMALE MALE VERY HIGH >8.3 >14.3 HIGH 5.6- 8.3 6.7- 14.3 AVERAGE 3.7- 5.6 4.0- 6.7 BELOW AVERAGE 2.5- 3.7 2.7- 4.0 PROTECTED <2.5 <2.7 19 PER NCEP ATP III GUIDELINES: OPTIMAL < 100 NEAR OPTIMAL 100 - 129 BORDERLINE HIGH 130 - 159 HIGH 160 - 189 VERY HIGH > 189 20 SEE RESULT BELOW Name: BLADE SANCHEZ: [address]: Una Swann MD Acct: [id number] Unit: [id number] AGE: 79 Location: [place] [address] Re05/13/19 SEX: M Status: ADM IN SPEC: [id number] KRISTI: 05/15/[address] [facility] [address]: Jesus Shi DO REQ: [id number] RECD: 05/15/19-150 STATUS: ESTEBAN VALLADARES DR: Gal Swann MD [...] CONTINUED ON NEXT PAGE DEPARTMENT OF PATHOLOGY, [facility] [employer] [place] [address] Abraham Cat M.D. Director ALEX # [id number] RUN DATE: 05/16/19 [facility] LAB LIVE PAGE 2 Patient: BLADE SANCHEZ [id number] (Continued) GROSS DESCRIPTION (Continued) Signed by and Reported on: Skyla Parr MD 05/16/19 1450 END OF REPORT DEPARTMENT OF PATHOLOGY, [facility] [employer] [place], [place] [address] Abraham Cat M.D. Director ALEX # [id number] 21 SEE RESULT BELOW Name: BLADE SANCHEZ : [address]: Una Swann MD Acct: [id number] Unit: [id number] AGE: 79 Location: [place] [address] Re05/13/19 SEX: M Status: ADM IN SPEC: [id number] KRISTI: 05/14/19- SUBM DR: Magnolia Mon MD REQ: [id number] RECD: 05/14/19 STATUS: ESTEBAN VALLADARES DR: Dung Mann PROCESSING ASSOCIATE _ ORDERED: LEVEL 4 FINAL DIAGNOSIS Stomach, [...] one cassette. Signed by and Reported on: kSyla Parr MD 05/16/19 1325 END OF REPORT DEPARTMENT OF PATHOLOGY, [address] [place] [address] Abraham Cat M.D. Director [facility] # [id number] 22 GI BLEED 23 Note: Persistent reduction for 3 months or more in an eGFR <60 mL/min/1.73 m2 defines CKD. Patients with eGFR values >/=60 mL/min/1.73 m2 may also have CKD if evidence of persistent proteinuria is present. The original MDRD equation for estimated GFR is not valid for patients less than 18 years of age. Additional information may be found at [email or web address]. 24 URINE, CLEAN CATCH 25 Method: Greer Keldron Hemoccult Card 26 D64.9 Z79.01 Z79.02 27 Method: Greer Roxy Hemoccult Card 28 D64.9 29 Method: Greer Keldron Hemoccult Card 30 APPROVED 31 Note: Persistent reduction for 3 months or more in an eGFR <60 mL/min/1.73 m2 defines CKD. Patients with eGFR values >/=60 mL/min/1.73 m2 may also have CKD if evidence of persistent proteinuria is present. The original MDRD equation for estimated GFR is not valid for patients less than 18 years of age. Additional information may be found at [email or web address]. 32 SEPSIS, PNEUMONIA 33 Note: Persistent reduction for 3 months or more in an eGFR <60 mL/min/1.73 m2 defines CKD. Patients with eGFR values >/=60 mL/min/1.73 m2 may also have CKD if evidence of persistent proteinuria is present. The original MDRD equation for estimated GFR is not valid for patients less than 18 years of age. Additional information may be found at [email or web address]. 34 Note: Persistent reduction for 3 months or more in an eGFR <60 mL/min/1.73 m2 defines CKD. Patients with eGFR values >/=60 mL/min/1.73 m2 may also have CKD if evidence of persistent proteinuria is present. The original MDRD equation for estimated GFR is not valid for patients less than 18 years of age. Additional information may be found at [email or web address]. 35 Note: Persistent reduction for 3 months or more in an eGFR <60 mL/min/1.73 m2 defines CKD. Patients with eGFR values >/=60 mL/min/1.73 m2 may also have CKD if evidence of persistent proteinuria is present. The original MDRD equation for estimated GFR is not valid for patients less than 18 years of age. Additional information may be found at [email or web address]. 36 Note: Persistent reduction for 3 months or more in an eGFR <60 mL/min/1.73 m2 defines CKD. Patients with eGFR values >/=60 mL/min/1.73 m2 may also have CKD if evidence of persistent proteinuria is present. The original MDRD equation for estimated GFR is not valid for patients less than 18 years of age. Additional information may be found at [email or web address]. 37 Note: Persistent reduction for 3 months or more in an eGFR <60 mL/min/1.73 m2 defines CKD. Patients with eGFR values >/=60 mL/min/1.73 m2 may also have CKD if evidence of persistent proteinuria is present. The original MDRD equation for estimated GFR is not valid for patients less than 18 years of age. Additional information may be found at [email or web address]. 38 NO GROWTH: FINAL REPORT 39 NO GROWTH: FINAL REPORT 40 REF BY CONSUELO WHITE,CP/DIFFICULTY BREATHING. 41 Tests: crp Instructions: 42 <=0.49 ug/mL - Low likelihood of DIC, DVT or Pulmonary Embolism >0.49 ug/mL - Additional testing should be done to rule out DIC, DVT, or Pulmonary embolism as clinically indicated. ([facility] has established a 97.89% negative predictive value for thrombotic disease when a cutoff value of 0.5 ug/mL is used.) 43 SEPSIS, PNEUMONIA 44 NO GROWTH: FINAL REPORT 45 NO GROWTH: FINAL REPORT 46 NORMAL KIDNEY FUNCTION OR MILD DISEASE - GFR >OR= 60 CHRONIC KIDNEY DISEASE - GFR 15 - 59 RENAL FAILURE - GFR <15 Est. GFR calculation based on the MDRD study equation, which assumes a steady state for creatinine. Est. GFR should not be used for medication dosing. 47 PER NCEP ATP III GUIDELINES: RESULTS LOWER THAN 40 MG/DL ARE SUGGESTIVE OF INCREASED RISK FOR CORONARY ARTERY DISEASE. RESULTS > OR = TO 60 MG/DL ARE CONSIDERED A NEGATIVE RISK FACTOR. 48 INTERPRETATION OF CHOL-HDL RATIO CHD RISK FEMALE MALE VERY HIGH >8.3 >14.3 HIGH 5.6- 8.3 6.7- 14.3 AVERAGE 3.7- 5.6 4.0- 6.7 BELOW AVERAGE 2.5- 3.7 2.7- 4.0 PROTECTED <2.5 <2.7 49 PER NCEP ATP III GUIDELINES: OPTIMAL < 100 NEAR OPTIMAL 100 - 129 BORDERLINE HIGH 130 - 159 HIGH 160 - 189 VERY HIGH > 189 50 A REVIEW OF THE LITERATURE SUGGESTS THE FOLLOWING RANGES FOR THE CLASSIFICATION OF 25-OH VITAMIN D STATUS: VITAMIN D STATUS 25-OH VITAMIN D DEFICIENCY <20 NG/ML INSUFFICIENCY 20-30 NG/ML SUFFICIENCY 31 - 100 NG/ML TOXICITY > 100 NG/ML A PEDIATRIC REFERENCE RANGE HAS NOT BEEN ESTABLISHED USING THIS METHOD. 51 % FREE PSA PROBABILITY OF CANCER 0 [...] DIAGNOSIS OF CANCER. (See: BRENDA 1998; 279: 9527-0092) METHOD USED TO ASSAY BOTH FREE PSA AND TOTAL PSA IS [employer] CHEMILUMINESCENT IMMUNOASSAY (CALIBRATION TRACEABLE TO WHO 1ST IS, 1998, 96/668). RESULTS SHOULD NOT BE INTERPRETED ABSOLUTE EVIDENCE FOR THE PRESENCE OR ABSENCE OF MALIGNANT DISEASE. VALUES OBTAINED WITH DIFFERENT ASSAY METHODS OR KITS CANNOT BE USED INTERCHANGEABLY. Procedures Date Code Description Status 06/25/2019 99415 Injection DX/Therapeutic/Prophy Completed 06/23/2019 97456 Injection DX/Therapeutic/Prophy Completed 06/20/2019 94524 Injection DX/Therapeutic/Prophy Completed 06/20/2019 06658 Nebulizer-Ippb Treatment Completed 03/10/2019 61525 EKG Completed 10/10/2016 82823362 Colonoscopy Completed Medical Devices Description No Information Available Encounters Type Date Location Provider Dx Diagnosis Office Visit 08/25/2019 [facility] Consuelo Mann, I10 Essential ( primary) 1:15p N.P. hypertension E78.2 Mixed hyperlipidemia J44.9 Chronic [...] mass index (BMI) 23.0-23.9, adult Office Visit 08/01/2019 11:45a [facility] Consuelo Mann, I10 Essential (primary) N.P. [...] (BMI) 23.0-23.9, adult Office Visit 07/11/2019 1:00p [facility] Consuelo Mann, I10 Essential (primary) N.P. [...] (BMI) 23.0-23.9, adult Office Visit 06/25/2019 1:00p [facility] Consuelo Mann, I10 Essential (primary) N.P. [...] (BMI) 23.0-23.9, adult Office Visit 06/23/2019 1:00p [facility] Consuelo Mann, I10 Essential (primary) N.P. 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 [...] (BMI) 23.0-23.9, adult Office Visit 05/26/2019 2:30p [facility] Consuelo Mann, I10 Essential (primary) N.P. [...] (BMI) 23.0-23.9, adult Office Visit 05/21/2019 3:00p [facility] Consuelo Mann, I10 Essential (primary) N.P. [...] (BMI) 23.0-23.9, adult Office Visit 04/23/2019 9:45a [facility] Consuelo Mann, I10 Essential (primary) N.P. [...] (BMI) 23.0-23.9, adult Office Visit 03/31/2019 3:30p [facility] Consuelo Mann, I10 Essential (primary) N.P. 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 [...] (BMI) 23.0-23.9, adult Office Visit 03/10/2019 10:45a [facility] Consuelo Mann, I10 Essential (primary) N.P. [...] aneurysm, without rupture Office Visit 03/07/2019 3:00p [facility] Consuelo Mann, I10 Essential (primary) N.P. [...] side M54.41 Lumbago with sciatica, right side Assessments Date Code Description Provider 08/25/2019 I10 Essential (primary) hypertension Consuelo Mann, N.P. 08/25/2019 E78.2 Mixed hyperlipidemia Consuelo Mann, N.P. 08/25/2019 J44.9 Chronic obstructive pulmonary disease, Consuelo Mann, N.P. 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 08/25/2019 N40.0 Benign prostatic hyperplasia without lower Consuelo Mann, N.PLuis urinary tract symptoms 08/25/2019 K21.0 Gastro-esophageal reflux disease with Consuelo Mann, N.PLuis esophagitis 08/25/2019 J30.2 Other seasonal allergic rhinitis Consuelo Mann, N.P. 08/25/2019 M15.9 Polyosteoarthritis, unspecified Consuelo Mann, N.P. 08/25/2019 M54.5 Low back pain Consuelo Mann N.P. 08/25/2019 R06.02 Shortness of breath Consuelo Mann N.P. 08/25/2019 R60.0 Localized edema Consuelo Mann N.P. 08/25/2019 E83.42 Hypomagnesemia Consuelo Mann, N.P. 08/25/2019 R97.20 Elevated prostate specific antigen [PSA] Consuelo Mann N.P. 08/25/2019 M54.6 Pain in thoracic spine Consuelo Mann N.P. 08/25/2019 I87.2 Venous insufficiency (chronic) (peripheral) Consuelo Mann N.P. 08/25/2019 H10.403 Unspecified chronic conjunctivitis, bilateral Consuelo Mann N.P. 08/25/2019 H91.8x3 Other specified hearing loss, bilateral Consuelo Mann, N.P. 08/25/2019 L20.9 Atopic dermatitis, unspecified Consuelo Mann, N.P. 08/25/2019 F17.210 Nicotine dependence, cigarettes, Consuelo Mann N.P. uncomplicated 08/25/2019 J30.9 Allergic rhinitis, unspecified Consuelo Mann, N.P. 08/25/2019 J18.9 Pneumonia, unspecified organism Consuelo Mann N.P. 08/25/2019 H92.03 Otalgia, bilateral Consuelo Mann N.P. 08/25/2019 H10.022 Other mucopurulent conjunctivitis, left eye Consuelo Mann N.P. 08/25/2019 H10.45 Other chronic allergic conjunctivitis Consuelo Mann, N.P. 08/25/2019 B37.0 Candidal stomatitis Consuelo Mann, N.P. 08/25/2019 S22.000A Wedge compression fracture of unspecified Consuelo Mann , N.P. thoracic vertebra, initial encounter for closed fracture 08/25/2019 L89.312 Pressure ulcer of right buttock, stage 2 Consuelo Mann, N.P. 08/25/2019 M54.17 Radiculopathy, lumbosacral region Consuelo Mann, N.P. 08/25/2019 M54.31 Sciatica, right side Consuelo Mann, N.P. 08/25/2019 M54.41 Lumbago with sciatica, right side Consuelo Mann, N.P. 08/25/2019 R53.83 Other fatigue Consuelo Mann, N.P. 08/25/2019 I71.4 Abdominal aortic aneurysm, without rupture Consuelo Mann N.P. 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 08/25/2019 I73.9 Peripheral vascular disease, unspecified Consuelo Mann, N.P. 08/25/2019 R07.9 Chest pain, unspecified Consuelo Mann, N.P. 08/25/2019 F17.293 Nicotine dependence, other tobacco product, Consuelo Mann , N.P. with withdrawal 08/25/2019 Z23 Encounter for immunization Consuelo Mann N.P. 08/25/2019 J01.40 Acute pansinusitis, unspecified Consuelo Mann N.P. 08/25/2019 Z68.23 Body mass index (BMI) 23.0-23.9, adult Consuelo Mann N.P. 08/01/2019 I10 Essential (primary) hypertension Consuelo Mann N.P. 08/01/2019 E78.2 Mixed hyperlipidemia Consuelo Mann, N.P. 08/01/2019 J44.9 Chronic obstructive pulmonary disease, Consuelo Mann, N.P. 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 08/01/2019 N40.0 Benign prostatic hyperplasia without lower Consuelo Mann, N.P. urinary tract symptoms 08/01/2019 K21.0 Gastro-esophageal reflux disease with Romeo Richards.PLuis esophagitis 08/01/2019 J30.2 Other seasonal allergic rhinitis Consuelo Mann N.P. 08/01/2019 M15.9 Polyosteoarthritis, unspecified Consuelo Mann N.P. 08/01/2019 M54.5 Low back pain Consuelo Mann N.P. 08/01/2019 R06.02 Shortness of breath Consuelo Mann N.PLuis 08/01/2019 R60.0 Localized edema Consuelo Mann N.P. 08/01/2019 E83.42 Hypomagnesemia Consuelo Mann N.P. 08/01/2019 R97.20 Elevated prostate specific antigen [PSA] Consuelo Mann N.PLuis 08/01/2019 M54.6 Pain in thoracic spine Consuelo Mann N.P. 08/01/2019 I87.2 Venous insufficiency (chronic) (peripheral) Consuelo Mann N.P. 08/01/2019 H10.403 Unspecified chronic conjunctivitis, bilateral Consuelo Mann N.P. 08/01/2019 H91.8x3 Other specified hearing loss, bilateral Consuelo Mann N.P. 08/01/2019 L20.9 Atopic dermatitis, unspecified Consuelo Mann N.P. 08/01/2019 F17.210 Nicotine dependence, cigarettes, Consuelo Mann N.PLuis uncomplicated 08/01/2019 J30.9 Allergic rhinitis, unspecified Consuelo Mann N.P. 08/01/2019 J18.9 Pneumonia, unspecified organism Consuelo Mann N.P. 08/01/2019 H92.03 Otalgia, bilateral Consuelo Mann N.P. 08/01/2019 H10.022 Other mucopurulent conjunctivitis, left eye Consuelo Mann N.P. 08/01/2019 H10.45 Other chronic allergic conjunctivitis Consuelo Mann N.PLuis 08/01/2019 B37.0 Candidal stomatitis Consuelo Mann N.P. 08/01/2019 S22.000A Wedge compression fracture of unspecified Romeo Richards.PLuis thoracic vertebra, initial encounter for closed fracture 08/01/2019 L89.312 Pressure ulcer of right buttock, stage 2 Consuelo Mann N.P. 08/01/2019 M54.17 Radiculopathy, lumbosacral region Consuelo Mann, N.P. 08/01/2019 M54.31 Sciatica, right side Consuelo Mann N.P. 08/01/2019 M54.41 Lumbago with sciatica, right side Consuelo Mann, N.P. 08/01/2019 R53.83 Other fatigue Consuelo Mann N.P. 08/01/2019 I71.4 Abdominal aortic aneurysm, without rupture Consuelo Mann N.P. 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 08/01/2019 I73.9 Peripheral vascular disease, unspecified Consuelo Mann, N.P. 08/01/2019 R07.9 Chest pain, unspecified Consuelo Mann N.P. 08/01/2019 F17.293 Nicotine dependence, other tobacco product, Consuelo Mann , N.P. with withdrawal 08/01/2019 Z23 Encounter for immunization Consuelo Mann N.P. 08/01/2019 J01.40 Acute pansinusitis, unspecified Consuelo Mann N.P. 08/01/2019 Z68.23 Body mass index (BMI) 23.0-23.9, adult Consuelo Mann N.P. 07/11/2019 I10 Essential (primary) hypertension Consuelo Mann N.P. 07/11/2019 E78.2 Mixed hyperlipidemia Consuelo Mann N.P. 07/11/2019 J44.9 Chronic obstructive pulmonary disease, Consuelo Mann, N.P. unspecified 07/11/2019 I25.10 Atherosclerotic heart disease of [place] Conseulo Mann N.PLuis coronary artery without angina pectoris 07/11/2019 E55.9 Vitamin D deficiency, unspecified Consuelo Mann, N.P. 07/11/2019 N40.0 Benign prostatic hyperplasia without lower Consuelo Mann, N.P. urinary tract symptoms 07/11/2019 K21.0 Gastro-esophageal reflux disease with Consuelo Mann N.PLuis esophagitis 07/11/2019 J30.2 Other seasonal allergic rhinitis Consuelo Mann N.P. 07/11/2019 M15.9 Polyosteoarthritis, unspecified Consuelo Mann N.P. 07/11/2019 M54.5 Low back pain Consuelo Mann N.P. 07/11/2019 R06.02 Shortness of breath Consuelo Mann N.P. 07/11/2019 R60.0 Localized edema Consuelo Mann N.P. 07/11/2019 E83.42 Hypomagnesemia Consuelo Mann N.P. 07/11/2019 R97.20 Elevated prostate specific antigen [PSA] Consuelo Mann N.P. 07/11/2019 M54.6 Pain in thoracic spine Consuelo Mann N.P. 07/11/2019 I87.2 Venous insufficiency (chronic) (peripheral) Consuelo Mann N.P. 07/11/2019 H10.403 Unspecified chronic conjunctivitis, bilateral Consuelo Mann N.P. 07/11/2019 H91.8x3 Other specified hearing loss, bilateral Consuelo Mann N.P. 07/11/2019 L20.9 Atopic dermatitis, unspecified Consuelo Mann N.P. 07/11/2019 F17.210 Nicotine dependence, cigarettes, Consuelo Mann N.P. uncomplicated 07/11/2019 J30.9 Allergic rhinitis, unspecified Consuelo Mann N.P. 07/11/2019 J18.9 Pneumonia, unspecified organism Consuelo Mann N.P. 07/11/2019 H92.03 Otalgia, bilateral Consuelo Mann N.P. 07/11/2019 H10.022 Other mucopurulent conjunctivitis, left eye Consuelo Mann N.P. 07/11/2019 H10.45 Other chronic allergic conjunctivitis Consuelo Mann N.P. 07/11/2019 B37.0 Candidal stomatitis Consuelo Mann N.P. 07/11/2019 S22.000A Wedge compression fracture of unspecified Romeo Richards.Deborah thoracic vertebra, initial encounter for closed fracture 07/11/2019 L89.312 Pressure ulcer of right buttock, stage 2 Consuelo Mann N.P. 07/11/2019 M54.17 Radiculopathy, lumbosacral region Consuelo Mann N.P. 07/11/2019 M54.31 Sciatica, right side Consuelo [...] tobacco product, Consuelo Mann N.P. with withdrawal 07/11/2019 Z23 Encounter for immunization Consuelo Mann N.P. 07/11/2019 Z68.23 Body mass index (BMI) 23.0-23.9, adult Consuelo Mann N.P. 06/25/2019 I10 Essential (primary) hypertension Consuelo Mann N.P. 06/25/2019 E78.2 Mixed hyperlipidemia Consuelo Mann N.P. 06/25/2019 J44.9 Chronic obstructive pulmonary disease, Consuelo Mann N.P. 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 06/25/2019 L20.9 Atopic dermatitis, unspecified Consuelo Mann, N.P. 06/25/2019 F17.210 Nicotine dependence, cigarettes, Consuelo Mann N.P. uncomplicated 06/25/2019 J30.9 Allergic rhinitis, unspecified Consuleo Mann N.P. 06/25/2019 J18.9 Pneumonia, unspecified organism Consuelo Mann N.P. 06/25/2019 H92.03 Otalgia, bilateral Consuelo Mann, N.P. 06/25/2019 H10.022 Other mucopurulent conjunctivitis, left eye Consuelo Mann N.P. 06/25/2019 H10.45 Other chronic allergic conjunctivitis Consuelo Mann N.P. 06/25/2019 B37.0 Candidal stomatitis Consuelo Mann, N.P. 06/25/2019 S22.000A Wedge compression fracture of unspecified Consuelo Mann N.PLuis thoracic vertebra, initial encounter for closed fracture 06/25/2019 L89.312 Pressure ulcer of right buttock, stage 2 Consuelo Mann, N.P. 06/25/2019 M54.17 Radiculopathy, lumbosacral region Consuelo Mann, N.P. 06/25/2019 M54.31 Sciatica, right side Consuelo Mann N.P. 06/25/2019 M54.41 Lumbago with sciatica, right side Consuelo Mann N.P. 06/25/2019 R53.83 Other fatigue Consuelo Mann N.P. 06/25/2019 I71.4 Abdominal aortic aneurysm, without rupture Consuelo Mann N.P. 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 06/25/2019 I73.9 Peripheral vascular disease, unspecified Consuelo Mann, N.P. 06/25/2019 R07.9 Chest pain, unspecified Consuelo Mann N.P. 06/25/2019 F17.293 Nicotine dependence, other tobacco product, Consuelo Mann , N.P. with withdrawal 06/25/2019 Z68.23 Body mass index (BMI) 23.0-23.9, adult Consuelo Mann N.P. 06/23/2019 I10 Essential (primary) hypertension Consuelo Mann N.P. 06/23/2019 E78.2 Mixed hyperlipidemia Consuelo Mann, N.P. 06/23/2019 J44.9 Chronic obstructive pulmonary disease, Consuelo Mann N.P. 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 06/20/2019 M54.6 Pain in thoracic [...] 06/20/2019 H10.022 Other mucopurulent conjunctivitis, left eye Cnosuelo Mann N.P. 06/20/2019 H10.45 Other chronic allergic [...] [place] Consuelo Mann N.PLuis coronary artery with 05/26/2019 [...] N.P. 05/26/2019 F17.210 Nicotine dependence, cigarettes, Consuelo Mann, N.P. uncomplicated 05/26/2019 J30.9 Allergic rhinitis, unspecified Consuelo Mann, N.P. 05/26/2019 J18.9 Pneumonia, unspecified organism Consuelo Mann, N.P. 05/26/2019 H92.03 Otalgia, bilateral Consuelo Mann, N.P. 05/26/2019 H10.022 Other mucopurulent conjunctivitis, left eye Consuelo Mann N.P. 05/26/2019 H10.45 Other chronic allergic conjunctivitis Consuelo Mann N.P. 05/26/2019 B37.0 Candidal stomatitis Consuelo Mann, [...] aortic aneurysm, without rupture Consuelo Mann, N.P. 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 05/26/2019 I73.9 Peripheral vascular disease, unspecified Consuelo Mann, N.P. 05/26/2019 R07.9 Chest pain, unspecified Consuelo Mann N.P. 05/26/2019 F17.293 Nicotine dependence, other tobacco product, Consuelo Mann N.P. with withdrawal 05/26/2019 Z68.23 Body mass index (BMI) 23.0-23.9, adult Consuelo Mann, N.P. 05/21/2019 I10 Essential (primary) hypertension Consuelo Mann N.P. 05/21/2019 E78.2 Mixed hyperlipidemia Consuelo Mann, N.P. 05/21/2019 J44.9 Chronic obstructive pulmonary disease, [...] uncomplicated 05/21/2019 J30.9 Allergic rhinitis, unspecified Consuelo Mann N.P. 05/21/2019 J18.9 Pneumonia, unspecified organism Consuelo Mann N.P. 05/21/2019 H92.03 Otalgia, bilateral Consuelo Mann, N.P. 05/21/2019 H10.022 Other mucopurulent conjunctivitis, left eye Consuelo Mann , N.P. 05/21/2019 H10.45 Other chronic allergic conjunctivitis Consuelo Mann, N.P. 05/21/2019 B37.0 Candidal stomatitis Consuelo Mann, N.P. 05/21/2019 S22.000A Wedge compression fracture of unspecified Consuelo Mann N.PLuis thoracic vertebra, 05/21/2019 L89.312 Pressure ulcer of right buttock, stage 2 Consuelo Mann, N.P. 05/21/2019 M54.17 Radiculopathy, lumbosacral region Consuelo Mann, N.P. 05/21/2019 M54.31 Sciatica, right side Consuelo Mann, N.P. 05/21/2019 M54.41 Lumbago with sciatica, right side Consuelo Mann, N.P. 05/21/2019 R53.83 Other fatigue Consuelo Mann N.P. 05/21/2019 I71.4 Abdominal aortic aneurysm, without [...] N.P. 04/23/2019 I10 Essential (primary) hypertension Consuelo Mann, N.P. 04/23/2019 E78.2 Mixed hyperlipidemia Consuelo Mann, N.P. 04/23/2019 J44.9 Chronic obstructive pulmonary disease, Consuelo Mann, N.P. unspecified 04/23/2019 I25.10 Atherosclerotic heart disease of [place] Consuelo Mann N.P. coronary artery with 04/23/2019 E55.9 Vitamin D deficiency, unspecified Consuelo Mann, N.P. 04/23/2019 N40.0 Benign prostatic hyperplasia without lower Consuelo Mann N.P. urinary tract sym 04/23/2019 K21.0 Gastro-esophageal reflux disease with Consuelo Mann N.PLuis esophagitis 04/23/2019 J30.2 Other seasonal allergic rhinitis Consuelo Mann N.P. 04/23/2019 M15.9 Polyosteoarthritis, unspecified Consuelo Mann N.P. 04/23/2019 M54.5 Low back pain Consuelo Mann N.P. 04/23/2019 R06.02 Shortness of breath Consuelo Mann N.PLuis 04/23/2019 R60.0 Localized edema Consuelo Mann N.P. 04/23/2019 E83.42 Hypomagnesemia Consuelo Mann N.P. 04/23/2019 R97.20 Elevated prostate specific antigen [PSA] Consuelo Mann N.PLuis 04/23/2019 M54.6 Pain in thoracic spine Consuelo Mann N.P. 04/23/2019 I87.2 Venous insufficiency (chronic) (peripheral) Consuelo Mann N.P. 04/23/2019 H10.403 Unspecified chronic conjunctivitis, bilateral Consuelo Mann N.P. 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 04/23/2019 L20.9 Atopic dermatitis, unspecified Consuelo Mann N.P. 04/23/2019 F17.210 Nicotine dependence, cigarettes, Consuelo Mann N.PLuis uncomplicated 04/23/2019 J30.9 Allergic rhinitis, unspecified Consuelo [...] right buttock, stage 2 Consuelo Mann N.P. 04/23/2019 M54.17 Radiculopathy, lumbosacral region Consuelo Mann N.P. 04/23/2019 M54.31 Sciatica, right side Consuelo Mann N.P. 04/23/2019 M54.41 Lumbago with sciatica, right [...] Mann N.P. 03/31/2019 M15.9 Polyosteoarthritis, unspecified Consuelo Mann, N.P. 03/31/2019 M54.5 Low back pain Consuelo [...] 03/17/2019 E55.9 Vitamin D deficiency, unspecified Consuelo Mann, N.P. 03/17/2019 N40.0 Benign prostatic hyperplasia without lower Consuelo Mann N.PLuis urinary tract sym 03/17/2019 K21.0 Gastro-esophageal reflux disease with Consuelo Mann N.PLuis esophagitis 03/17/2019 J30.2 Other seasonal allergic rhinitis Consuelo Mann, N.P. 03/17/2019 M15.9 Polyosteoarthritis, unspecified Consuelo Mann, N.P. 03/17/2019 M54.5 Low back pain Consuelo [...] Mann N.P. 03/17/2019 B37.0 Candidal stomatitis Consuelo Mann, N.P. 03/17/2019 S22.000A Wedge compression fracture of unspecified Consuelo Mann N.PLuis thoracic vertebra, 03/17/2019 L89.312 Pressure ulcer of right buttock, stage 2 Consuelo Mann, N.P. 03/17/2019 M54.17 Radiculopathy, lumbosacral region Consuelo Mann N.P. 03/17/2019 M54.31 Sciatica, right side Consuelo Mann N.P. 03/17/2019 M54.41 Lumbago with sciatica, right side Consuelo Mann, N.P. 03/17/2019 R53.83 Other fatigue Consuelo Mann N.P. 03/17/2019 J02.9 Acute pharyngitis, unspecified Consuelo [...] Consuelo Mann N.P. 03/10/2019 E83.42 Hypomagnesemia Consuelo aMnn N.P. 03/10/2019 R97.20 Elevated prostate specific antigen [...] N.P. 03/10/2019 R53.83 Other fatigue Consuelo Mann N.PLuis 03/10/2019 Z00.01 Encounter for general adult medical Consuelo Mann N.P. examination with abnorma 03/10/2019 J02.9 Acute pharyngitis, unspecified Consuelo Mann, N.P. 03/10/2019 I71.4 Abdominal aortic aneurysm, without rupture Consuelo Mann N.P. 03/07/2019 I10 Essential (primary) hypertension Consuelo Mann N.P. 03/07/2019 E78.2 Mixed hyperlipidemia Consuelo Mann N.P. 03/07/2019 J44.9 Chronic obstructive pulmonary disease, Consuelo Mann N.P. 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 03/07/2019 E83.42 Hypomagnesemia Consuelo Mann, N.P. 03/07/2019 R97.20 Elevated prostate specific antigen [...] 03/07/2019 M54.17 Radiculopathy, lumbosacral region Consuelo Mann N.PLuis 03/07/2019 M54.31 Sciatica, right side Consuelo Mann N.P. 03/07/2019 M54.41 Lumbago with sciatica, right side Consuelo Mann N.P. Plan of Treatment Future Appointment(s):08/29/2019 9:00 am - Consuelo Mann N.P. 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 THANK YOU. [phone] [place] [id number] [phone] Zechariah Montes MD Closed [address] [place] [address] [phone]
--- OUTSIDE RECORDS SUMMARY | 2019-09-07 17:46 | XMS REPORT ---
:1940 Author Organization [facility] Care Team Providers Name Role Phone Unavailable [...]
--- OUTSIDE RECORDS SUMMARY | 2019-09-07 17:46 | XMS REPORT | Continuity of Care Document ---
:1940 External Reference #:[id number] Author Name Inderjit Montes M.D. (transmitted by agent of provider Ashlee Elizabeth) Address [address] 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 Problems Description No Information Available Social History Type Date Description Comments Sex Unknown ETOH Use Currently consumes alcohol 2 drinks Recreational Drug Use Denies Drug Use Tobacco Use Start: Unknown End: Patient is a former smoker Unknown Smoking Status Reviewed: 08/27/19 Patient is a former smoker Exercise Type/Frequency Does not exercise Allergies, Adverse Reactions, Alerts Active Allergies Reaction Severity Comments Date Sulfa Drugs 04/20/2014 Tobramycin 03/28/2019 Inactive Allergies NKDA 04/24/2014 Medications Active Medications SIG Qnty Indications Ordering Date Provider Prednisone 2 tablets day one 9tabs Other Ordering 07/08/2019 20mg Tablets and two, 1 tablet Provider day 3,4,5, then one half tablet day 6,7,8 and 9 Stiolto Respimat 1 puff by mouth 12gm Other Ordering 07/08/2019 twice a day Provider 2.5-2.5mcg/Act Aerosol Hydrocodone-Acetaminop take one by mouth Unknown hen twice daily as 7.5-325mg Tablets needed for pain Lorazepam prn Unknown 0.5mg Tablets Furosemide 1 by mouth every Unknown 20mg Tablets day- take for one week starting aug 25 Xarelto 1 by mouth two Unknown 15mg Tablets times a day Potassium Chloride ER 1 by mouth every Unknown day 20Meq Tablets ER Pantoprazole Sodium 1 by mouth every Unknown 40mg day Tablets DR Isosorbide Dinitrate 3 by mouth every Unknown 30mg day Tablets Ferrous Sulfate 1 by mouth every Unknown [...] every 90caps Unknown 20mg Capsules day DR Medications Administered in Office Medication SIG Qnty [...] Available Vital Signs Date Vital Result Comment 08/27/2019 9:02am Height 67 inches 5'7" Weight 163.00 lb w/ shoes and portable oxygen device Heart Rate 86 /min R radial, irregular BP Systolic 122 mmHg R regular, sitting BP Diastolic 60 mmHg R regular, sitting BP Systolic Standing 110 mmHg R regular BP Diastolic Standing 52 mmHg R regular Respiratory Rate 18 /min BMI (Body Mass Index) 25.5 kg/m2 07/08/2019 1:10pm Height 67 inches 5'7" Weight 152.00 lb Heart Rate 78 /min BP Systolic 158 mmHg BP Diastolic 84 mmHg O2 % BldC Oximetry 89 % BMI (Body Mass Index) 23.8 kg/m2 Results Test Acquired Date Facility Test Result H/L Range Note Laboratory test 05/15/2019 [facility] Surgical SEE RESULT [address] Pathology Order BELOW [place], [place] [id number] [phone] Laboratory test 05/14/2019 [facility] Surgical SEE RESULT [address] [place] [address] [phone] 1 SEE RESULT BELOW Name: BLADE SANCHEZ : [address]: Una Swann MD Acct: [id number] Unit: [id number] AGE: 79 Location: [place] [address] Re05/13/19 SEX: M Status: ADM IN SPEC: [id number] KRISTI: 05/15/[address] [facility] DR: Jesus Shi DO REQ: [id number] RECD: 05/15/19 STATUS: ESTEBAN VALLADARES DR: Gal [...] CONTINUED ON NEXT PAGE DEPARTMENT OF PATHOLOGY, [address] [place] [address] Abraham Cat M.D. Director [facility] # [id number] RUN DATE: 05/16/19 [facility] LAB LIVE PAGE 2 Patient: BLADE SANCHEZ [id number] (Continued) GROSS DESCRIPTION (Continued) Signed by and Reported on: Skyla Parr MD 05/16/19 1450 END OF REPORT DEPARTMENT OF PATHOLOGY, [address] [place] [address] Abraham Cat M.D. Director [facility] # [id number] 2 SEE RESULT BELOW Name: BLADE SANCHEZ : [address]: Una Swann MD Acct: [id number] Unit: [id number] AGE: 79 Location: [place] [address]- Re05/13/19 SEX: M Status: ADM IN SPEC: [id number] KRISTI: 05/14/19- [facility] DR: Magnolia Mon MD REQ: [id number] RECD: 05/14/19 STATUS: ESTEBAN VALLADARES DR: Dung Mann GO CART MECHANIC _ ORDERED: LEVEL 4 FINAL DIAGNOSIS Stomach, [...] 1325 END OF REPORT DEPARTMENT OF PATHOLOGY, [address] [place] [address] Abraham Cat M.D. Director [facility] # [id number] Procedures Date Code Description Status 08/10/2019 02503 Echocardiogram, Limited Study Completed 08/07/2019 49371 ECHO Transthorasic Realtime 2D W Doppler & Color Flow Completed Hosp 06/06/2019 22709 EKG Tracing & Interpretation Completed 05/15/2019 96813 ECHO Transthorasic Realtime 2D W Doppler & Color Flow Completed Hosp 05/14/2019 79979 EKG, Interpretation Only Completed 04/16/2019 53995 EKG Tracing & Interpretation Completed 10/10/2016 [id number] Colonoscopy Completed Medical Devices Description No Information Available Encounters Type Date Location Provider Dx Diagnosis Office Visit 08/18/2019 [facility] Kamila Erick, GO CART MECHANIC I26.99 Other pulmonary 11:03a Assoc,pc embolism without Hospitalists acute cor pulmonale I82.401 Acute embolism and thombos unsp deep veins of r low extrem I21.4 Non-St elevation (Nstemi) myocardial infarction I48.91 Unspecified atrial fibrillation J90 Pleural effusion, not elsewhere classified Office Visit 08/17/2019 11:03a [facility] Kamila Erick, I26.99 Other pulmonary Assoc,pc [employer] MECHANIC embolism Hospitalists without acute cor pulmonale I82.401 [...] [facility] embolism without Manager Terminal acute cor pulmonale J90 Pleural effusion, not elsewhere classified Office Visit 08/16/2019 11:03a [facility] [place] I26.99 Other pulmonary Assoc,pc [facility] Dotstefany, embolism Hospitalists GO CART MECHANIC without acute cor pulmonale I82.401 Acute embolism and thombos unsp deep veins of r low extrem I21.4 Non-St elevation (Nstemi) myocardial infarction I48.0 Paroxysmal atrial fibrillation F41.8 Other specified anxiety disorders Office Visit 08/16/2019 9:17a [facility] Kathy I26.99 Other pulmonary [facility] embolism without Manager Terminal acute cor pulmonale J90 Pleural effusion, not elsewhere classified R04.2 Hemoptysis Office Visit 08/15/2019 8:00a [facility] Kathy I26.99 Other pulmonary [facility] embolism without Manager Terminal acute cor pulmonale J90 Pleural effusion, not elsewhere classified Office Visit 08/14/2019 11:10a [facility] Kathy J90 Pleural effusion, [facility] not elsewhere Manager Terminal classified R07.9 Chest pain, unspecified Office Visit 08/14/2019 2:59p [facility] Hair Starkey I21.4 Non-St elevation Of Alvaro Angel M.D., (Nstemi) FACC, FASNC myocardial infarction I26.99 Other pulmonary embolism without acute cor pulmonale Office Visit 08/13/2019 11:02a [facility] Avi aLm, I26.99 Other pulmonary M.D. embolism without acute cor pulmonale J44.1 Chronic obstructive pulmonary disease w (acute) exacerbation I27.20 Pulmonary hypertension, unspecified Z99.81 Dependence on supplemental oxygen Office Visit 08/12/2019 11:45a [facility] Kathy J90 Pleural effusion, [facility] not elsewhere Manager Terminal classified R04.2 Hemoptysis R07.9 Chest pain, unspecified [facility] Ass[facility]pc Tierra Manzano, embolism Hospitalists GO CART MECHANIC without acute cor pulmonale I21.4 Non-St elevation (Nstemi) myocardial infarction I82.401 Acute embolism and thombos unsp deep veins of r low extrem J44.9 Chronic obstructive pulmonary disease, unspecified Office Visit 08/11/2019 2:54p [facility] Kathy J90 Pleural effusion, [facility] not elsewhere Manager Terminal classified R04.2 Hemoptysis Office Visit 08/11/2019 2:57p [facility] Inderjit Purdy I21.4 Non-St elevation Of Alvaro Montes M.D. (Nstemi) myocardial infarction I26.99 Other pulmonary embolism without acute cor pulmonale Office Visit 08/11/2019 11:01a [facility] [place] I26.99 Other pulmonary Assoc,pc Tierra Manzano, embolism Hospitalists [employer] C[employer] MECHANIC without acute cor pulmonale I21.4 Non-St elevation (Nstemi) myocardial infarction I82.401 Acute embolism and thombos unsp deep veins of r low extrem I48.91 Unspecified atrial fibrillation J44.9 Chronic obstructive pulmonary disease, unspecified I10 Essential (primary) hypertension Office Visit 08/10/2019 10:47a [facility] Wilfredo Chiang I26.99 Other pulmonary Of [facility] Isbell, DO embolism without FACC acute cor pulmonale I21.9 Acute myocardial infarction, unspecified I48.0 Paroxysmal atrial fibrillation J44.9 Chronic obstructive pulmonary disease, unspecified Office Visit 08/10/2019 [facility] I26.99 Other pulmonary 11:01a iman Cobb M.D. embolism Hospitalists without acute cor pulmonale I82.401 Acute embolism and thombos unsp deep veins of r low extrem R04.2 Hemoptysis R07.9 Chest pain, unspecified J90 Pleural effusion, not elsewhere classified J44.9 Chronic obstructive pulmonary disease, unspecified Office Visit 08/09/2019 [facility] I26.99 Other pulmonary 11:01a iman Cobb M.D. embolism Hospitalists without acute cor pulmonale I82.401 Acute embolism and thombos unsp deep veins of r low extrem J44.9 Chronic obstructive pulmonary disease, unspecified J90 Pleural effusion, not elsewhere classified Office Visit 08/08/2019 [facility] I26.99 Other pulmonary 11:01a iman Cobb M.D. embolism Hospitalists without acute cor pulmonale I82.401 Acute embolism and thombos unsp deep veins of r low extrem R04.2 Hemoptysis J44.9 Chronic obstructive pulmonary disease, unspecified R00.0 Tachycardia, unspecified J90 Pleural effusion, not elsewhere classified Office Visit 08/07/2019 [facility] I26.99 Other pulmonary 11:00a iman Cobb M.D. embolism Hospitalists without acute cor pulmonale I82.401 Acute embolism and thombos unsp deep veins of r low extrem R04.2 Hemoptysis R00.0 Tachycardia, unspecified J90 Pleural effusion, not elsewhere classified Office Visit 08/07/2019 2:47p [facility] Kathy J90 Pleural effusion, [facility] not elsewhere [facility] classified J18.9 Pneumonia, unspecified organism Office Visit 08/06/2019 11:00a [facility] Merced Cool, I26.99 Other pulmonary Assoc,pc KATHIA embolism Hospitalists without acute cor pulmonale I48.91 Unspecified atrial fibrillation J90 Pleural effusion, not elsewhere classified I10 Essential (primary) hypertension Office Visit 07/08/2019 2:00p [facility] Kathy R06.02 Shortness of [facility] breath [facility] J44.9 Chronic obstructive pulmonary disease, unspecified J84.9 Interstitial pulmonary disease, unspecified R09.02 Hypoxemia Office Visit 06/06/2019 10:30a [facility] Inderjit Purdy 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 disease of belk[place]ski cor art w oth ang pctrs R06.02 Shortness of breath I73.9 Peripheral vascular disease, unspecified R94.31 Abnormal electrocardiogram [ECG] [EKG] [facility] K[facility]2 Gastrointestinal 2:16p Assoc,pc [place], hemorrhage, Hospitalists M.D.,FACP unspecified D50.0 Iron deficiency anemia secondary to blood loss (chronic) I48.91 Unspecified atrial fibrillation [facility] K92.2 Gastrointestinal 2:15p Assoc,pc [place], hemorrhage, Hospitalists M.D.,FACP unspecified D64.9 Anemia, unspecified I10 Essential (primary) hypertension I48.91 Unspecified atrial fibrillation Office Visit [facility] K92.2 Gastrointestinal 2:14p Assoc,pc [place], hemorrhage, Hospitalists M.D.,FACP unspecified I10 Essential (primary) hypertension I48.91 Unspecified atrial fibrillation J44.9 Chronic obstructive pulmonary disease, unspecified Office 05/13/2019 [facility] Gastroenterology Tod TLuis K92.2 Gastrointestinal Visit 7:00a MD Eb hemorrhage, unspecified D50.0 Iron deficiency anemia secondary to blood loss (chronic) Office Visit 05/13/2019 [facility] Gurwinder K92.2 Gastrointestinal 2:14p Assoc,pc [place], hemorrhage, Hospitalists M.D.,FACP unspecified D62 Acute posthemorrhagic anemia I48.91 Unspecified atrial fibrillation I10 Essential (primary) hypertension Office Visit 04/16/2019 2:00p [facility] Inderjit Purdy 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 cor pulmonale 08/27/2019 I21.4 Non-St elevation (Nstemi) myocardial Inderjit Montes M.D. infarction 08/27/2019 I48.91 Unspecified atrial fibrillation Inderjit Montes M.D. 08/27/2019 I10 Essential (primary) hypertension Inderjit Montes M.D. 08/18/2019 I26.99 Other pulmonary embolism without acute Kamila Erick, GO CART MECHANIC cor pulmonale 08/18/2019 I82.401 Acute embolism and thrombosis of Kamila Erick, GO CART MECHANIC unspecified deep veins of right lower extremity 08/18/2019 I21.4 Non-St elevation (Nstemi) myocardial Kamila Erick, GO CART MECHANIC infarction 08/18/2019 I48.91 Unspecified atrial fibrillation Kamila Erick, GO CART MECHANIC 08/18/2019 J90 Pleural effusion, not elsewhere Kamila Erick, GO CART MECHANIC classified 08/17/2019 I26.99 Other pulmonary embolism without acute Kamila Erick, GO CART MECHANIC cor pulmonale 08/17/2019 I26.99 Other pulmonary embolism without acute Kathy Granados MD cor pulmonale 08/17/2019 I82.401 Acute embolism and thrombosis of Kamila Erick, GO CART MECHANIC unspecified deep veins of right lower extremity 08/17/2019 J90 Pleural effusion, not elsewhere Kathy Granados MD classified 08/17/2019 I21.4 Non-St elevation (Nstemi) myocardial Kamila Erick, GO CART MECHANIC infarction 08/17/2019 J44.1 Chronic obstructive pulmonary disease Kamila Erick, GO CART MECHANIC with (acute) exacerbation 08/17/2019 J90 Pleural effusion, not elsewhere Kamila Erick, GO CART MECHANIC classified 08/17/2019 I10 Essential (primary) hypertension Kamila Erick, GO CART MECHANIC 08/17/2019 F41.8 Other specified anxiety disorders Kamila Erick, GO CART MECHANIC 08/16/2019 I26.99 Other pulmonary embolism without acute [place] Tierra Doto, GO CART MECHANIC cor pulmonale 08/16/2019 I26.99 Other pulmonary embolism without acute Kathy Granados MD cor pulmonale 08/16/2019 I82.401 Acute embolism and thrombosis of [place] Manzano NP unspecified deep veins of right lower extremity 08/16/2019 J90 Pleural effusion, not elsewhere Kathy Granados MD classified 08/16/2019 I21.4 Non-St elevation (Nstemi) myocardial [place] Manzano GO CART MECHANIC infarction 08/16/2019 R04.2 Hemoptysis Kathy Granados MD 08/16/2019 I48.0 Paroxysmal atrial fibrillation [place] Manzano GO CART MECHANIC 08/16/2019 F41.8 Other specified anxiety disorders [place] Manzano GO CART MECHANIC 08/15/2019 I26.99 Other pulmonary embolism without acute Kathy Granados MD cor pulmonale 08/15/2019 J90 Pleural effusion, not elsewhere Kathy Granados MD classified 08/14/2019 I21.4 Non-St elevation (Nstemi) myocardial Hair Lalito Angel M.D. , infarction FACC, FASDE 08/14/2019 I26.99 Other pulmonary embolism without acute Hair Lalito Angel M.D., cor pulmonale FACC, FASDE 08/14/2019 J90 Pleural effusion, not elsewhere Kathy [...] I26.99 Other pulmonary embolism without acute [place] Manzano, GO CART MECHANIC cor pulmonale 08/12/2019 I21.4 Non-St elevation (Nstemi) myocardial [place] Manzano , GO CART MECHANIC infarction 08/12/2019 J90 Pleural effusion, not elsewhere Kathy Granados MD classified 08/12/2019 I82.401 Acute embolism and thrombosis of [place] Manzano, GO CART MECHANIC unspecified deep veins of right lower extremity 08/12/2019 R04.2 Hemoptysis Kathy Granados MD 08/12/2019 J44.9 Chronic obstructive pulmonary disease, [place] Manzano, GO CART MECHANIC unspecified 08/12/2019 R07.9 Chest pain, unspecified Kathy Granados MD 08/11/2019 I26.99 Other pulmonary embolism without acute [place] Manzano, GO CART MECHANIC cor pulmonale 08/11/2019 I21.4 Non-St elevation (Nstemi) myocardial Inderjit Montes M.D. infarction 08/11/2019 I21.4 Non-St elevation (Nstemi) myocardial [place] Manzano , GO CART MECHANIC infarction 08/11/2019 I26.99 Other pulmonary embolism without acute Inderjit Montes M.D. cor pulmonale 08/11/2019 I82.401 Acute embolism and thrombosis of [place] Manzano, GO CART MECHANIC unspecified deep veins of right lower extremity 08/11/2019 J90 Pleural effusion, not elsewhere Kathy Granados MD classified 08/11/2019 I48.91 Unspecified atrial fibrillation [place] Manzano GO CART MECHANIC 08/11/2019 R04.2 Hemoptysis Kathy Granados MD 08/11/2019 J44.9 Chronic obstructive pulmonary disease, [place] Manzano, GO CART MECHANIC unspecified 08/11/2019 I10 Essential (primary) hypertension [place] Manzano, GO CART MECHANIC 08/10/2019 I26.99 Other pulmonary embolism without acute Mal Gan M.D. cor pulmonale 08/10/2019 I26.99 Other pulmonary embolism without acute Wilfredo Isbell, DO FACC cor pulmonale 08/10/2019 I82.401 Acute embolism and thrombosis of Mal Gan M.D. unspecified deep veins of right lower extremity 08/10/2019 I21.9 Acute myocardial infarction, Wilfredo Isbell, DO FACC unspecified 08/10/2019 R04.2 Hemoptysis Mal Gan M.D. 08/10/2019 I48.0 Paroxysmal atrial fibrillation Wilfredo Isbell, DO [facility] 08/10/2019 R07.9 Chest pain, unspecified Mal Gan M.D. 08/10/2019 J44.9 Chronic obstructive pulmonary disease, Wilfredo Chiang Isbell, DO [facility] unspecified 08/10/2019 J90 Pleural effusion, not elsewhere [...] pulmonary embolism without acute Wilfredo Isbell, DO [facility] cor pulmonale 08/07/2019 R04.2 Hemoptysis Mal [...] Atherosclerotic heart disease of Inderjit Montes M.D. 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 04/16/2019 R06.02 Shortness of breath Inderjit Montes M.D. Plan of Treatment Future Appointment(s):11/26/2019 11:30 am - Inderjit Montes M.D. at [facility]09/01/2019 11:30 am - Kathy Granados MD at [facility]08/27/2019 - Inderjit Montes M.D.I26.99 Other pulmonary embolism without acute cor gehyoyccwX71.4 Non-St elevation (Nstemi) myocardial infarctionFollow up:3 qcgllxG39.91 Unspecified atrial obtinpncwqamX58 Essential (primary) hypertension Functional Status Description No Information Available Mental Status Description No Information Available Referrals Description No Information Available
--- OUTSIDE RECORDS SUMMARY | 2019-09-07 17:46 | XMS REPORT ---
:1940 Author Organization [facility] Care Team Providers Name Role Phone Unavailable Unavailable Unavailable Problems Condition Condition Condition Status Onset Resolution Last Treating Comments Name Details Category Date Date Treatment Clinician Date Non-ST Non-ST Diagnosis Active 2018-09 [place]OLO elevation elevation 2-03 [place] (NSTEMI) (NSTEMI) #948116 myocardial myocardial infarction infarction Allergies, Adverse Reactions, [...]
--- OUTSIDE RECORDS SUMMARY | 2019-09-07 17:46 | XMS REPORT | Continuity of Care Document ---
:1940 External Reference #:[id number] Author Name Consuelo Mann N.P. 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 Tablets Magnesium Citrate one bottle by 592ml K59.00 [facility] 08/29/2019 mouth x once M., M.D. 1.745GM/30ML Solution today, if no bm in 4 hours repeat x once Furosemide 1 by mouth every 7tabs R60.0 [facility] 08/25/2019 20mg Tablets day x 1 week M., M.D. Potassium Chloride ER One Cap PO qd In 30caps R60.0 [facility] 2018 Am M. MLuisDLuis 10Meq Capsules ER Lorazepam 1/2-1 tab by 28tabs J44.9 [facility] 06/25/2019 0.5mg Tablets mouth four times M., M.D. a day as needed sob/anxiety Ipratropium one inhalation 180ml [facility] 06/23/2019 Ephraim/Albuterol treatment every 4 M., M.D. Sulfate hour 0.5-2.5(3)mg/3ML Solution Prednisone 2 tab by mouth 20tabs J18.9 [facility] 06/20/2019 20mg Tablets daily 4 M., M.D. days,30x3d,20x2d, 10x7d Hydrocodone-Acetamino 1 tab by mouth 60tabs J18.9 [facility] 06/20/2019 phen three times a day M., M.D. 7.5-325mg Tablets as needed Flucon[facility] 1 tab by [facility] 150mg today and january Nelly Gutiérrez Tablets repeat iLAST Day Of Abx Oxygen Generator for continuous J44.9 [facility] 05/21/2019 oxygen titirate Nelly Gutiérrez up to 4L to maintain o2 sat between 88-96% Aspirin 81 Low Dose 1 by mouth every 90units I10 [facility] 03/10/2019 morning MMarla SmithDLuis 81mg Chewtabs Bacitracin Zinc apply to wound on 28.350gm L89.312 [facility] 03/07/2019 buttocks bid x 14 Nelly Gutiérrez 500Unit/GM Ointment days. after washing with soap and water and pad dry. Combivent Respimat 1 puff twice a 12gm J44.9 [facility] 11/21/2018 day Nelly Gutiérrez 20-100mcg/Act Aerosol Prednisolone Acetate 1 drops both eyes 10ml H10.45 [facility] 08/06/2018 1% twice a day as Nelly Gutiérrez Suspension needed Nebulizer use with 2units J44.9 [facility] 01/21/2018 Kit/Tubing/Mouthpiece nebulizer every 4 M. M.DLuis hours as needed Kit Nebulizer use as directed 1units J44.9 [facility] 01/21/2018 Device Nelly Gutiérrez Betamethasone apply to affected 45gm L20.9 [facility] 12/05/2017 Dipropionate area ( Face) Nelly Gutiérrez 0.05% three times a day Cream as needed Simvastatin 1 by mouth every 90tabs E78.2 [facility] 03/27/2017 40mg night MLuis MLuisDLuis Tablets Metoprolol Tartrate 1 tab by mouth 90tabs I10 [facility] 11/16[facility]2016 every day M. MLuisD. 100mg Tablets Losartan tab one by mouth 90tabs I10 [facility] 03/31/2014 Potassium/Hydrochloro every in the M., MLuisD. thiazide morning 100-25mg Tablets R60.0 I87.2 Omeprazole 1 by mouth every 90caps K21.0 CkGal hercules MLuis, 01/16/[address] day M.D. K30 History Medications Amoxicillin/Clavulanate 1 tab by 60tafrantz J01.40 [facility] - Potassium mouth twice M., M.D. 08/24/2019 875-125mg Tablets a day Azithromycin 1 tab by 10tafrantz J18.9 [facility] 06/20/2019 - 500mg Tablets mouth every M., M.D. 07/01/2019 day x 10 days Guiatuss 30ml by 946ml [facility] 05/27/2019 - 100mg/5ML Syrup mouth twice M., M.D. 06/19/2019 a day x 10 days Erythromycin apply thin 7gm [facility] 05/26/2019 - 5mg/GM Ointment layer on M., M.D. 08/28/2019 lesion under l eye 4x daily x 2 weeks Nicoderm CQ Uad 28units F17.293 [facility] 05/21/2019 - 7mg/24HR Patches 24HR M., M.D. 08/28/2019 Azithromycin 1 tab by 10tafrantz [facility] 03/17/2019 - 500mg Tablets mouth every M., M.D. 04/22/2019 day x 10 days Amoxicillin/Clavulanate 1 tab by 14tafrantz J02.9 [facility] 03/10/2019 - Potassium mouth twice M., M.D. 03/16/2019 875-125mg Tablets a day Medications Administered in Office Medication SIG Qnty Indications Ordering Provider Date Solu-Medrol Up To 40MG Consuelo Mann, N.P. 06/25/2019 Injection Rocephin 250 Consuelo Mann, N.P. 06/23/2019 Injection Solu-Medrol Up To 40MG Consuelo Mann, N.P. 06/20/2019 Injection Rocephin 250 Consuelo Mann, N.P. 06/20/2019 Injection Solu-Medrol Up To 40MG Consuelo Mann, N.P. 10/21/2018 Injection Rocephin 250 Gal Stover M.D. 07/30/2018 Injection Rocephin 250 Consuelo Mann N.P. 05/01/2018 Injection Solu-Medrol 125MG Gal Stover M.D. 12/20/2017 Injection Rocephin 250 Gal Stover M.D. 12/20/2017 Injection Admin Of Pneumovax Gal Stover M.D. 08/19/2015 Injection B12 Gal Stover M.D. 08/17/2011 Injection Immunizations CPT Code Status Date Vaccine Lot # [id number] Given 07/11/2019 Flu Virus Vaccine, Quadrivalent, Slit Virus, Im [id number] Use U-Flu Given 07/02/2018 Influenza,Unspecified [id number] Given 07/11/2016 Flu Vaccine 3+Yrs Old(Fluzone) 98115 Given 12/02/2015 Zoster Shingles Vaccine For Injection Q2038 Given 08/19/2015 Flu Vaccine 3+Yrs Old(Fluzone) 28558 Given 08/19/2015 Pneumovax [id number] 47698 Given 08/19/2015 Flu Vaccine [id number] Given 06/27/2014 Flu Vaccine Q2038 Given 07/31/2013 Flu Vaccine 3+Yrs Old(Fluzone) [id number] Q2038 Given 07/04/2012 Flu Vaccine 3+Yrs Old(Fluzone) [id number] 49302 Given 09/16/2009 Admin Of Influenza [id number] 87731 Given 08/08/2006 Flu Vaccine 42722 Given 07/31/2003 Pneumovax [id number] Vital Signs Date Vital Result Comment 08/29/2019 8:33am BP Systolic 122 mmHg BP Diastolic 64 mmHg Height 68 inches 5'8" Weight 170.00 lb BMI (Body Mass Index) 25.8 kg/m2 Heart Rate 124 /min Respiratory Rate 16 /min 08/25/2019 1:17pm BP Systolic 105 mmHg BP Diastolic 55 mmHg Height 68 inches 5'8" Weight 165.00 lb BMI (Body Mass Index) 25.1 kg/m2 Heart Rate 90 /min Respiratory Rate 17 /min Results Test Acquired Date Facility Test Result H/L Range Note Laboratory test 08/29/2019 [facility] Magnesium <pending> finding 113 ALYSE SANTOS (607)- - Laboratory test 08/29/2019 [facility] Vitamin D 1 25 <pending> finding 113 AL[facility] Dihydroxy (607)- - Laboratory test 08/29/2019 [facility] Sed Rate <pending> finding 113 ALYSE SANTOS (607)- - C Reactive Protein <pending> Rheumatoid Factor <pending> Uric Acid <pending> Stool Occult 08/19/2019 [facility] Stool Occult SEE RESULT 1 Blood, Screen Blood, Screen BELOW Basic Metabolic 08/19/2019 [facility] Sodium 138 mmol/L Normal 135- 145 Panel Potassium 4.1 mmol/L Normal 3.5-5.0 Chloride 101 mmol/L Normal 101-111 Co2 Carbon Dioxide 31 mmol/L Normal 22-32 Anion Gap 6 mmol/L Normal 2-11 Glucose 123 mg/dL High 70-100 Blood Urea Nitrogen 26 mg/dL High 6-24 Creatinine 1.01 mg/dL Normal 0.67-1.17 BUN/Creatinine Ratio 25.7 High 8-20 Calcium 8.7 mg/dL Normal 8.6-10.3 Egfr Non- 71.3 >60 Egfr 86.2 >60 2 CBC Auto Diff 08/19/2019 [facility] White Blood 16.6 10^3/uL High 3.5 -10.8 Count Red Blood Count 4.08 10^6/uL Low [...] % Nucleated Red Blood Cells % 0.0 Urine Culture And 08/06/2019 [facility] Urine Culture SEE RESULT BELOW 3 Sensitivities Urinalysis Profile 08/06/2019 [facility] Urine Color Yellow Urine Appearance Cloudy Urine Specific Lind 1.026 Normal 1.010-1.030 Urine pH 5.0 Normal [...] Casts Present Abnormal Absent Laboratory test 08/06/2019 [facility] Blood Culture SEE RESULT 4 finding BELOW CBC Auto Diff 08/06/2019 [facility] White Blood 21.3 10^3/uL High 3.5 [...] Blood Cells % 0.0 Laboratory test 08/06/2019 [facility] Troponin-I 0.14 ng/mL Critical high <0.03 5 finding (TnI) Lactic Acid 2.2 mmol/L Critical high 0.5-2.0 6 Comp Metabolic Panel 08/06/2019 [facility] Sodium 131 mmol/L Low 135- 145 [...] >60 Egfr 84.3 >60 7 Inr/Protime 08/06/2019 [facility] Inr 1.20 High 0.82-1.09 8 Type & Screen 08/06/2019 [facility] Patient Blood B Negative 9 Type Antibody Screen NEGATIVE Laboratory test 08/06/2019 [facility] Partial 37.1 seconds Normal 26.0-38.0 finding Thrombo Time PTT Lactic Acid 1.5 mmol/L Normal 0.5-2.0 10 Laboratory test 08/06/2019 [facility] Troponin-I 0.15 Critical <0.03 11 finding (TnI) ng/mL high Creatinine 08/06/2019 [facility] Creatinine 0.93 Normal 0.67-1.17 mg/dL Egfr Non- 78.4 >60 Egfr 94.8 >60 12 Laboratory test 08/06/2019 [facility] Blood Urea 20 mg/dL Normal 6- 24 finding Nitrogen BUN CBC Auto Diff 08/06/2019 [facility] White Blood 18.8 High 3.5-10.8 Count [...] % Nucleated Red Blood Cells % 0.0 CBC Auto Diff 07/28/2019 [facility] White Blood 15.3 10^3/uL High 3.5 [...] 0.1 Iron & Iron Binding Capacity 07/28/2019 [facility] Iron 43 g/dL Low 50-212 Unsaturated Iron Binding < 331 g/dL Total Iron Binding Capacity 346 g/dL Normal 250-450 Transferrin 247 mg/dL Normal 203-362 % Iron Saturation 12 % Low 15-55 Laboratory test finding 07/28/2019 [facility] Ferritin 36.9 ng/mL Normal 24-336 Folic Acid (Folate) > 20.00 ng/mL >3.99 Vitamin B12 270 pg/mL Normal 180-914 13 Protein 07/28/2019 [facility] Total Protein(Pep) 6.8 g/dL 6.3 - 7.9 Electrophoresis Albumin 3.3 g/dL Abnormal 3.4-4.7 Alpha-1 Globulin 0.3 g/dL 0.1-0.3 Alpha-2 Globulin 1.0 g/dL 0.6-1.0 Beta Globulin 1.1 g/dL 0.7-1.2 Gamma Globulin 1.2 g/dL 0.6-1.6 Albumin/Globulin Ratio 0.93 Impression See Comment 14 Laboratory 06/20/2019 [facility] TSH,Ultrasensitive @ 3.660 (0.360- 4.170) test finding 113 [employer] DANIELLE mIU/L (607)- - Free Thyroxine @ 1.34 ng/dL (0.76-1.46) Lipid 06/20/2019 [facility] Cholesterol @ 125 mg/dL (0-200) 113 [employer] DANIELLE (607)- - Triglyceride @ 90 mg/dL (30-200) HDL Cholesterol @ 36 mg/dL Low (>40) 15 Chol/HDL Ratio 3.5 RATIO 16 LDL Chol (Calc) 71 mg/dL (<130) 17 CMP 06/20/2019 [facility] Sodium 132 mmol/L Low (136-145) 113 [employer] [...] ml/min/1.73m2 Low (>59) GFR Interpretation <SEE NOTE> 18 CBC With Diff 06/20/2019 [facility] WBC 15.0 10*3/uL High (4.1-11.0) 113 [employer] [...] (0.0-11.0) Lymph % 3.0 % Low (16.0-52.0) [place] % 14.0 % High (0.0-8.0) Neut # 12.3 10*3/uL High (1.8-7.7) Band # 0.2 10*3/uL Lymph # 0.5 10*3/uL Low (1.2-4.8) [place] # 2.1 10*3/uL High (0.0-0.8) Aniso 1+ Poik 1+ Poly 1+ Large PLT 1+ Diff Comment SLIDE REVIEWED B <SEE NOTE> 19 Laboratory test 05/15/2019 [facility] SEE RESULT 20 finding Pathology Order BELOW Laboratory test 05/14/2019 [facility] SEE RESULT 21 finding Pathology Order BELOW Laboratory test 05/13/2019 [facility] Lipase 224 U/L Normal 56-289 22 finding NT-proBNP 2852.0 pg/mL High <450 Comprehensive Metabolic Panel 05/13/2019 [facility] Glucose 105 mg/dL Normal 74-106 BUN 18 [...] 51 U/L Normal 45-117 Lactic Acid 05/13/2019 [facility] Lactic Acid 2.8 mmol/L Critical high 0.4- 1.9 Lab Reflex >2.0 for Sepsis? Y CBS W/Automated Diff 05/13/2019 [facility] White Blood Count 12.1 K/uL High 3.4-10.5 [...] 33.0-73.0 Lymph % 5.6 % Low 20.0-42.0 [place] % 4.6 % Normal 0.0-10.0 Eo% 0.6 % Normal 0.0-6.6 Bas% 0.2 % Normal 0.0-1.1 Immature Grans 1.1 % Normal 0.0-5.0 NRBC % 0.0 /100WBC < 10/ 100 WBC Neut# 10.68 K/uL High 1.8-7.0 Lymph # 0.68 K/uL Low 1.0-4.0 [place] # 0.56 K/uL Normal 0.0-0.8 Eos # 0.07 K/uL Normal 0.0-0.5 Baso # 0.02 K/uL Normal 0.0-0.1 Immature Grans Absolute 0.13 K/uL NRBC # 0.00 K/uL Ua RFX Micro & Culture II 05/13/2019 [facility] Urine Color YELLOW Yellow Urine Clarity CLEAR Clear Urine Glucose - Dipstick NEGATIVE mg/dL Negative Urine Bilirubin - Dipstick NEGATIVE Negative Urine Ketone NEGATIVE mg/dL Negative Urine Specific Lind 1.010 Normal 1.010-1.030 Urine Blood NEGATIVE Negative Urine PH 6.5 Normal 6.5-7.5 Urine Protein - Dipstick NEGATIVE mg/dL Negative Urine Urobilinogen - Dipstick 0.2 E.U./dL Normal 0.2-1.0 Urine Nitrite - Dipstick NEGATIVE Negative Urine Leuk Esterase NEGATIVE Negative Source: URINE, CLEAN CAT <SEE NOTE> 24 Laboratory test 05/13/2019 [facility] Occult POSITIVE Abnormal Negative 25 finding Blood,Stool Laboratory test 05/12/2019 [facility] Occult POSITIVE Abnormal Negative 26 , 27 finding Blood,Stool Laboratory test 05/11/2019 [facility] Occult NEGATIVE Negative 28, 29 finding Blood,Stool CBC 05/01/2019 [facility] White Blood 14.4 K/uL High 3.4-10.5 30 [...] 10/ 100 WBC Basic Metabolic Panel 05/01/2019 [facility] Glucose 119 mg/dL High 74-106 BUN 36 [...] mg/dL Normal 8.5-10.1 Basic Metabolic Panel 04/29/2019 [facility] Glucose 130 mg/dL High 74-106 32 BUN [...] mg/dL Normal 8.5-10.1 Basic Metabolic Panel 04/28/2019 [facility] Glucose 115 mg/dL High 74-106 BUN 31 [...] mg/dL Low 8.5-10.1 CBS W/Automated Diff 04/27/2019 [facility] White Blood Count 13.8 K/uL High 3.4-10.5 [...] 33.0-73.0 Lymph % 3.3 % Low 20.0-42.0 [place] % 5.7 % Normal 0.0-10.0 Eo% 0.6 % Normal 0.0-6.6 Bas% 0.2 % Normal 0.0-1.1 Immature Grans 1.9 % Normal 0.0-5.0 NRBC % 0.3 /100WBC < 10/ 100 WBC Neut# 12.21 K/uL High 1.8-7.0 Lymph # 0.45 K/uL Low 1.0-4.0 [place] # 0.79 K/uL Normal 0.0-0.8 Eos # 0.08 K/uL Normal 0.0-0.5 Baso # 0.03 K/uL Normal 0.0-0.1 Immature Grans Absolute 0.26 K/uL NRBC # 0.04 K/uL Basic Metabolic Panel 04/27/2019 [facility] Glucose 129 mg/dL High 74-106 BUN 27 [...] mg/dL Normal 8.5-10.1 Basic Metabolic Panel 04/26/2019 [facility] Glucose 124 mg/dL High 74-106 BUN 26 [...] 8.3 mg/dL Low 8.5-10.1 Lactic Acid 04/25/2019 [facility] Lactic Acid 1.4 mmol/L Normal 0.4-1.9 Lab Reflex >2.0 for Sepsis? N Basic Metabolic Panel 04/25/2019 [facility] Glucose 133 mg/dL High 74-106 BUN 18 [...] mg/dL Low 8.5-10.1 CBS W/Automated Diff 04/24/2019 [facility] White Blood 10.4 K/uL Normal 3.4 -10.5 [...] 33.0-73.0 Lymph % 3.5 % Low 20.0-42.0 [place] % 1.4 % Normal 0.0-10.0 Eo% 0.0 % Normal 0.0-6.6 Bas% 0.0 % Normal 0.0-1.1 Immature Grans 0.7 % Normal 0.0-5.0 NRBC % 0.0 /100WBC < 10/ 100 WBC Neut# 9.79 K/uL High 1.8-7.0 Lymph # 0.36 K/uL Low 1.0-4.0 [place] # 0.14 K/uL Normal 0.0-0.8 Eos # 0.00 K/uL Normal 0.0-0.5 Baso # 0.00 K/uL Normal 0.0-0.1 Immature Grans Absolute 0.07 K/uL NRBC # 0.00 K/uL Laboratory test 04/24/2019 [facility] Lactic Acid 1.8 mmol/L Normal 0.4- 1.9 finding Lactic Acid 04/24/2019 [facility] Lactic Acid 2.2 mmol/L Critical high 0.4- 1.9 Lab Reflex >2.0 for Sepsis? Y Blood Culture 04/23/2019 [facility] Blood Culture Aerobic NO GROWTH: FINAL < SEE 38 NOTE> Blood Culture Anaerobic NO GROWTH: FINAL <SEE NOTE> 39 Aot Request 04/23/2019 [facility] Aot Request Test(s) added 40, 41 Tests to be added: crp Lactic Acid 04/23/2019 [facility] Lactic Acid 3.6 mmol/L Critical high 0.4- 1.9 Lab Reflex >2.0 for Sepsis? Y Laboratory test 04/23/2019 [facility] D-Dimer, Quantitative 3.18 ug/mL 42 finding Blood Culture 04/23/2019 [facility] Blood Culture Aerobic NO GROWTH: 43 , 44 FINAL <SEE NOTE> Blood Culture Anaerobic NO GROWTH: FINAL <SEE NOTE> 45 Lactic Acid 04/23/2019 [facility] Lactic Acid 2.2 mmol/L Critical high 0.4- 1.9 Lab Reflex >2.0 for Sepsis? Y CBC With Diff 03/10/2019 [facility] WBC 14.5 10*3/uL High (4.1-11.0) 113 ALYSE SANTOS (607)- - RBC 4.61 10*6/uL (4.60-6.10) HGB 14.8 g/dL (13.5-18.0) HCT 44.5 % (41.0-53.0) MCV 96.7 fL High (80.0-95.0) MCH 32.1 pg High (27.0-32.0) MCHC 33.2 g/dL (32.0-36.0) RDW 14.2 % (10.5-14.5) PLT 301 10*3/uL (150-450) MPV 7.1 fL (7.1-10.7) Neut % 68.0 % (35.0-75.0) Lymph % 21.1 % (16.0-52.0) [place] % 9.9 % High (0.0-8.0) Eos % 0.5 % (0.0-5.0) Baso % 0.5 % (0.0-4.0) Neut # 9.9 10*3/uL High (1.8-7.7) Lymph # 3.1 10*3/uL (1.2-4.8) [place] # 1.4 10*3/uL High (0.0-0.8) Eos # 0.1 10*3/uL (0.0-0.5) Baso # 0.1 10*3/uL (0.0-0.2) CMP 03/10/2019 [facility] Sodium 141 mmol/L (136-145) 113 ALYSE SANTOS (607)- - Potassium 3.3 mmol/L Low (3.6-5.2) [...] <SEE NOTE> 46 Laboratory test 03/10/2019 [facility] Magnesium 1.7 mg/dL (1.7-2.4) finding 113 [employer] DANI[facility] (607)- - Lipid Extended Panel 03/10/2019 [facility] Appearance CLEAR (Clear) 113 [employer] DANIEL[facility] (607)- - Cholesterol @ 170 mg/dL (0-200) Triglyceride @ 137 mg/dL (30-200) HDL Cholesterol @ 71 mg/dL (>40) 47 Chol/HDL Ratio 2.4 RATIO 48 Direct LDL @ 85 mg/dL (<130) 49 VLDL (Calc) 14 mg/dL (0-30) Laboratory test 03/10/2019 [facility] 25 Hydroxy 20 ng/mL Low (31-100) 50 finding [address] [employer] [facility] Vit D @ (607)- - PSA Free And 03/10/2019 [facility] PSA Total 4.6 ng/mL High (0.0-4.0) Total 113 [employer] DANIEL[facility] (607)- - PSA Free 0.9 ng/mL PSA % Free 20 % 51 Laboratory test 03/10/2019 [facility] Rheumatoid Factor <15 IU/mL (0- 15) finding 113 [employer] DANIEL[employer] @ (607)- - C Reactive Protein @ 0.5 mg/dL (0.0-0.5) Esr 8 mm/h (0-20) Uric Acid 6.8 mg/dL (3.5-7.2) TSH,Ultrasensitive @ 1.940 mIU/L (0.360-4.170) 1 SEE RESULT BELOW Name: BLADE SANCHEZ : [address]: Babak Castillo MD Acct: [id number] Unit: [id number] AGE: 79 Location: ED Re08/19/19 SEX: M Status: REG ER SPEC: [id number] KRISTI: 08/19/[address] [facility] [address]: Babak Castillo MD REQ: [id number] RECD: 08/19/19 STATUS: ALBERT VALLADARES DR: Consuelo Mann MAGNETIZER _ SOURCE: STOOL SPDESC: ORDERED: Occult Bl, Scn Procedure Result Reported Site Stool Occult Blood (1) Final 08/19/19- 2015 ML Stool Occult Blood Positive * - [facility] . END OF REPORT DEPARTMENT OF PATHOLOGY, [address] [place] [address] Abraham Cat M.D. Director [facility] # [id number] 2 Because ethnic data is not always [...] 5 Kidney failure <15 (or dialysis) 3 SEE RESULT BELOW Name: BLADE SANCHEZ : [address]: Mal Gan MD Acct: [id number] Unit: [id number] AGE: 79 Location: [place] [address] Re08/06/19 SEX: M Status: ADM IN SPEC: [id number] KRISTI: 08/08/[address] [facility] [address]: Daniel Copeland MD REQ: [id number] RECD: 08/08/19 STATUS: COMP [facility] DR: Consuelo Mann MAGNETIZER _ SOURCE: URINE SPDESC: ORDERED: Urine Culture Procedure Result Reported Site Urine Culture Final 08/09/19- 0918 ML No Growth (<1,000 CFU/mL) * ML - Main Lab . END OF REPORT DEPARTMENT OF PATHOLOGY, [address] [place] [address] Abraham Cat M.D. Director [facility] # [id number] 4 SEE RESULT BELOW Name: BLADE SANCHEZ : [address]: Yobany Del Rosario MD Acct: [id number] Unit: [id number] AGE: 79 Location: [place] [address] Re08/06/19 SEX: M Status: ADM IN SPEC: [id number] KRISTI: 08/06/[address] [facility] [address]: Daniel Copeland MD REQ: [id number] RECD: 08/06/19 STATUS: ALBERT VALLADARES DR: Consuelo Mann MAGNETIZER _ SOURCE: BLOOD,VENO SPDESC: ORDERED: Blood Cult Procedure Result Reported Site Aerobic Culture Bottle Final 08/11/19- 1625 ML No Growth Day 5 Anaerobic Culture Bottle Final 08/11/19- 1625 ML No Growth Day 5 * ML - Main Lab . END OF REPORT DEPARTMENT OF PATHOLOGY, [address] [place] [id number] Abraham Cat M.D. Director [facility] # [id number] 5 Result TnIDx:0.14 Called to [id number] at: 16:43:03 by:[id number] Read back by: [id number] Troponin-I testing on Plasma Separator Tubes (PST) has a known false positive rate of 0.20-0.40%. All positive troponins reflex immediately to secondary confirmatory testing. Using the [employer] Access Immunoassay systems, the 99th percentile upper reference limit was demonstrated to be < 0.03 ng/mL. 6 Critical Result LACT:2.2 Called to [id number] at: 16:43:39 by:[id number] Read back by:[id number] [facility] Severe Sepsis and Septic Shock Management Bundle [...] be repeated. 11 Result TnIDx:0.15 Called to [id number] at: 20:25:40 by:[id number] Read back by: [id number] Troponin-I testing on Plasma Separator Tubes (PST) has a known false positive rate of 0.20-0.40%. All positive troponins reflex immediately to secondary confirmatory testing. Using the [employer] DxI 800 Access Immunoassay systems, the 99th [...] 5 Kidney failure <15 (or dialysis) 13 Normal Range 180 to 914 Indeterminate Range 145 to 180 Deficient Range <145 14 RESULT: No apparent monoclonal protein on serum electrophoresis. Test Performed by: [facility] [place] [address] [place] [address] Independent Freight Agent: Consuelo Mayes M.D. Ph.D.; CLIA# [id number] 15 PER NCEP ATP III GUIDELINES: RESULTS LOWER THAN 40 MG/DL ARE SUGGESTIVE OF INCREASED RISK FOR CORONARY ARTERY DISEASE. RESULTS > OR = TO 60 MG/DL ARE CONSIDERED A NEGATIVE RISK FACTOR. 16 INTERPRETATION OF CHOL-HDL RATIO CHD RISK FEMALE MALE VERY HIGH >8.3 >14.3 HIGH 5.6- 8.3 6.7- 14.3 AVERAGE 3.7- 5.6 4.0- 6.7 BELOW AVERAGE 2.5- 3.7 2.7- 4.0 PROTECTED <2.5 <2.7 17 PER NCEP ATP III GUIDELINES: OPTIMAL < 100 NEAR OPTIMAL 100 - 129 BORDERLINE HIGH 130 - 159 HIGH 160 - 189 VERY HIGH > 189 18 NORMAL KIDNEY FUNCTION OR MILD DISEASE - GFR >OR= 60 CHRONIC KIDNEY DISEASE - GFR 15 - 59 RENAL FAILURE - GFR <15 Est. GFR calculation based on the MDRD study equation, which assumes a steady state for creatinine. Est. GFR should not be used for medication dosing. 19 SLIDE REVIEWED BY CODING TECH [id number] 10.7.19. 20 SEE RESULT BELOW Name: BLADE SANCHEZ : [address]: Una Swann MD Acct: [id number] Unit: [id number] AGE: 79 Location: [place] [address] Re05/13/19 SEX: M Status: ADM IN SPEC: [id number] KRISTI: 05/15/[address] [facility] [address]: Jesus Shi DO REQ: [id number] RECD: 05/15/19150 STATUS: ESTEBAN VALLADARES DR: Gal [...] CONTINUED ON NEXT PAGE DEPARTMENT OF PATHOLOGY, [address] [place] [address] Abraham Cat M.D. Director [facility] # [id number] RUN DATE: 05/16/19 [facility] LAB LIVE PAGE 2 Patient: BLADE SANCHEZ [id number] (Continued) GROSS DESCRIPTION (Continued) Signed by and Reported on: Skyla Parr MD 05/16/19 1450 END OF REPORT DEPARTMENT OF PATHOLOGY, [address] [place] [address] Abraham Cat M.D. Director [facility] # [id number] 21 SEE RESULT BELOW Name: BLADE SANCHEZ : [address]: Una Swann MD Acct: [id number] Unit: [id number] AGE: 79 Location: [place] [id number] Re05/13/19 SEX: M Status: ADM IN SPEC: [id number] KRISTI: 05/14/19- SUBM DR: Magnolia Mon MD REQ: [id number] RECD: 05/14/19 STATUS: ESTEBAN VALLADARES DR: Dung Mann MAGNETIZER _ ORDERED: LEVEL 4 FINAL DIAGNOSIS Stomach, [...] and Reported on: Skyla Parr MD 05/16/19 1208 END OF REPORT DEPARTMENT OF PATHOLOGY, [address] [place] [address] Abraham Cat M.D. Director [facility] # [id number] 22 GI BLEED 23 Note: Persistent reduction [...] 24 URINE, CLEAN CATCH 25 Method: Greer Roxy Hemoccult Card 26 D64.9 Z79.01 Z79.02 27 Method: Greer [place] Hemoccult Card 28 D64.9 29 Method: Greer [place] Hemoccult Card 30 APPROVED 31 Note: Persistent [...] GROWTH: FINAL REPORT 40 REF BY CONSUELO WHITE CP/DIFFICULTY BREATHING. 41 Tests: crp Instructions: 42 <=0.49 [...] DIAGNOSIS OF CANCER. (See: BRENDA 1998; 279: 1643-9129) METHOD USED TO ASSAY BOTH FREE PSA AND TOTAL PSA IS SIEMENS [employer] LOCI CHEMILUMINESCENT IMMUNOASSAY (CALIBRATION TRACEABLE TO WHO 1ST IS, 1998, 96/668). RESULTS SHOULD NOT BE INTERPRETED ABSOLUTE EVIDENCE FOR THE PRESENCE OR ABSENCE OF MALIGNANT DISEASE. VALUES OBTAINED WITH DIFFERENT ASSAY METHODS OR KITS CANNOT BE USED INTERCHANGEABLY. Procedures Date Code Description Status 06/25/2019 28235 Injection DX/Therapeutic/Prophy Completed 06/23/2019 79408 Injection DX/Therapeutic/Prophy Completed 06/20/2019 83106 Injection DX/Therapeutic/Prophy Completed 06/20/2019 49921 Nebulizer-Ippb Treatment Completed 03/10/2019 34346 EKG Completed 10/10/2016 [id number] Colonoscopy Completed Medical Devices Description No Information Available Encounters Type Date Location Provider Dx Diagnosis Office Visit 08/29/2019 [facility] Consuelo Mann, I10 Essential ( primary) 9:00a N.P. hypertension E78.2 Mixed hyperlipidemia J44.9 Chronic obstructive pulmonary disease, unspecified I25.10 Athscl heart disease of [place] coronary artery w/o ang pctrs E55.9 Vitamin [...] Encounter for immunization J01.40 Acute pansinusitis, unspecified I26.99 Other pulmonary embolism without acute cor pulmonale K59.00 Constipation, unspecified Z68.23 Body mass index (BMI) 23.0-23.9, adult Office Visit 08/25/2019 1:15p [place] [facility] Consuelo Mann, I10 Essential (primary) N.P. hypertension E78.2 Mixed hyperlipidemia J44.9 Chronic obstructive pulmonary disease, unspecified I25.10 Athscl heart disease of [place] coronary artery w/o ang pctrs E55.9 Vitamin [...] (BMI) 23.0-23.9, adult Office Visit 08/01/2019 11:45a [place] [facility] Consuelo Mann, I10 Essential (primary) N.P. hypertension E78.2 Mixed hyperlipidemia J44.9 Chronic obstructive pulmonary disease, unspecified I25.10 Athscl heart disease of [place] coronary artery w/o ang pctrs E55.9 Vitamin [...] (BMI) 23.0-23.9, adult Office Visit 07/11/2019 1:00p [place] [facility] Consuelo Mann, I10 Essential (primary) N.P. hypertension E78.2 Mixed hyperlipidemia J44.9 Chronic obstructive pulmonary disease, unspecified I25.10 Athscl heart disease of [place] coronary artery w/o ang pctrs E55.9 Vitamin [...] (BMI) 23.0-23.9, adult Office Visit 06/25/2019 1:00p [place] [facility] Consuelo Mann, I10 Essential (primary) N.P. hypertension E78.2 Mixed hyperlipidemia J44.9 Chronic obstructive pulmonary disease, unspecified I25.10 Athscl heart disease of [place] coronary artery w/o ang pctrs E55.9 Vitamin [...] (BMI) 23.0-23.9, adult Office Visit 06/23/2019 1:00p [place] [facility] Consuelo Mann, I10 Essential (primary) N.P. hypertension E78.2 Mixed hyperlipidemia J44.9 Chronic obstructive pulmonary disease, unspecified I25.10 Athscl heart disease of [place] coronary artery w/o ang pctrs E55.9 Vitamin [...] (BMI) 23.0-23.9, adult Office Visit 06/20/2019 2:15p [place] [facility] Consuelo Mann, I10 Essential (primary) N.P. hypertension E78.2 Mixed hyperlipidemia J44.9 Chronic obstructive pulmonary disease, unspecified I25.10 Athscl heart disease of [place] coronary artery w/o ang pctrs E55.9 Vitamin [...] (BMI) 23.0-23.9, adult Office Visit 05/26/2019 2:30p [place] [facility] Consuelo Mann, I10 Essential (primary) N.P. hypertension E78.2 Mixed hyperlipidemia J44.9 Chronic obstructive pulmonary disease, unspecified I25.10 Athscl heart disease of [place] coronary artery w/o [facility] pctrs E55.9 Vitamin D deficiency, [...] (BMI) 23.0-23.9, adult Office Visit 05/21/2019 3:00p [place] [facility] Consuelo Mann, I10 Essential (primary) N.P. hypertension E78.2 Mixed hyperlipidemia J44.9 Chronic obstructive pulmonary disease, unspecified I25.10 Athscl heart disease of [place] coronary artery w/o ang pctrs E55.9 Vitamin [...] (BMI) 23.0-23.9, adult Office Visit 04/23/2019 9:45a [place] [facility] Consuelo Mann, I10 Essential (primary) N.P. hypertension E78.2 Mixed hyperlipidemia J44.9 Chronic obstructive pulmonary disease, unspecified I25.10 Athscl heart disease of [place] coronary artery w/o ang pctrs E55.9 Vitamin [...] (BMI) 23.0-23.9, adult Office Visit 03/31/2019 3:30p [place] [facility] Consuelo Mann, I10 Essential (primary) N.P. hypertension E78.2 Mixed hyperlipidemia J44.9 Chronic obstructive pulmonary disease, unspecified I25.10 Athscl heart disease of [place] coronary artery w/o ang pctrs E55.9 Vitamin [...] (BMI) 23.0-23.9, adult Office Visit 03/17/2019 3:15p [place] [facility] Consuelo Mann, I10 Essential (primary) N.P. hypertension E78.2 Mixed hyperlipidemia J44.9 Chronic obstructive pulmonary disease, unspecified I25.10 Athscl heart disease of [place] coronary artery w/o [facility] pctrs E55.9 Vitamin D deficiency, [...] (BMI) 23.0-23.9, adult Office Visit 03/10/2019 10:45a [place] [facility] Consuelo Mann, I10 Essential (primary) N.P. 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 hypertension E78.2 Mixed hyperlipidemia J44.9 Chronic obstructive pulmonary disease, unspecified I25.10 Athscl heart disease of [place] coronary artery w/o ang pctrs E55.9 Vitamin [...] right side Assessments Date Code Description Provider 08/29/2019 I10 Essential (primary) hypertension Consuelo Mann N.P. 08/29/2019 E78.2 Mixed hyperlipidemia Consuelo Mann N.P. 08/29/2019 J44.9 Chronic obstructive pulmonary disease, Consuelo Mann N.P. 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 08/29/2019 N40.0 Benign prostatic hyperplasia without lower Consuelo Mann N.PLuis urinary tract symptoms 08/29/2019 K21.0 Gastro-esophageal reflux disease with Consuelo Mann N.PLuis esophagitis 08/29/2019 J30.2 Other seasonal allergic rhinitis Consuelo Mann N.P. 08/29/2019 M15.9 Polyosteoarthritis, unspecified Consuelo Mann N.P. 08/29/2019 M54.5 Low back pain Consuelo Mann N.P. 08/29/2019 R06.02 Shortness of breath Consuelo Mann N.P. 08/29/2019 R60.0 Localized edema Consuelo Mann N.P. 08/29/2019 E83.42 Hypomagnesemia Consuelo Mann N.P. 08/29/2019 R97.20 Elevated prostate specific antigen [PSA] Consuelo Mann N.P. 08/29/2019 M54.6 Pain in thoracic spine Consuelo Mann N.P. 08/29/2019 I87.2 Venous insufficiency (chronic) (peripheral) Consuelo Mann N.P. 08/29/2019 H10.403 Unspecified chronic conjunctivitis, bilateral Consuelo Mann N.P. 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 08/29/2019 L20.9 Atopic dermatitis, unspecified Consuelo Mann, N.P. 08/29/2019 F17.210 Nicotine dependence, cigarettes, Consuelo Mann, N.P. uncomplicated 08/29/2019 J30.9 Allergic rhinitis, unspecified Consuelo Mann, N.P. 08/29/2019 J18.9 Pneumonia, unspecified organism Consuelo Mann, N.P. 08/29/2019 H92.03 Otalgia, bilateral Consuelo Mann, N.P. 08/29/2019 H10.022 Other mucopurulent conjunctivitis, left eye Consuelo Mann N.P. 08/29/2019 H10.45 Other chronic allergic conjunctivitis Consuelo Mann N.P. 08/29/2019 B37.0 Candidal stomatitis Consuelo Mann N.P. 08/29/2019 S22.000A Wedge compression fracture of unspecified Consuelo Mann , N.PLuis thoracic vertebra, initial encounter for closed fracture 08/29/2019 L89.312 Pressure ulcer of right buttock, stage 2 Consuelo Mann, N.P. 08/29/2019 M54.17 Radiculopathy, lumbosacral region Consuelo Mann N.P. 08/29/2019 M54.31 Sciatica, right side Consuelo Mann, N.P. 08/29/2019 M54.41 Lumbago with sciatica, right side Consuelo Mann N.P. 08/29/2019 R53.83 Other fatigue Consuelo Mann N.P. 08/29/2019 I71.4 Abdominal aortic aneurysm, without rupture Consuelo Mann N.P. 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 08/29/2019 I73.9 Peripheral vascular disease, unspecified Consuelo Mann N.P. 08/29/2019 R07.9 Chest pain, unspecified Consuelo Mann N.P. 08/29/2019 F17.293 Nicotine dependence, other tobacco product, Consuelo Mann , N.P. with withdrawal 08/29/2019 Z23 Encounter for immunization Consuelo Mann N.P. 08/29/2019 J01.40 Acute pansinusitis, unspecified Consuelo Mann N.P. 08/29/2019 I26.99 Other pulmonary embolism without acute cor Consuelo Mann N.PLuis pulmonale 08/29/2019 K59.00 Constipation, unspecified Consuelo Mann N.P. 08/29/2019 Z68.23 Body mass index (BMI) 23.0-23.9, adult Consuelo Mann N.P. 08/25/2019 I10 Essential (primary) hypertension Consuelo Mann N.P. 08/25/2019 E78.2 Mixed hyperlipidemia Consuelo Mann N.P. 08/25/2019 J44.9 Chronic obstructive pulmonary disease, Consuelo Mann, N.P. 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 08/25/2019 N40.0 Benign prostatic hyperplasia without lower Consuelo Mann N.PLuis urinary tract symptoms 08/25/2019 K21.0 Gastro-esophageal reflux disease with Consuelo Mann N.PLuis esophagitis 08/25/2019 J30.2 Other seasonal allergic rhinitis Consuelo Mann N.P. 08/25/2019 M15.9 Polyosteoarthritis, unspecified Consuelo Mann N.P. 08/25/2019 M54.5 Low back pain Consuelo Mann N.P. 08/25/2019 R06.02 Shortness of breath Consuelo Mann N.P. 08/25/2019 R60.0 Localized edema Consuelo Mann N.P. 08/25/2019 E83.42 Hypomagnesemia Consuelo Mann N.P. 08/25/2019 R97.20 Elevated prostate specific antigen [PSA] Consuelo Mann N.P. 08/25/2019 M54.6 Pain in thoracic spine Consuelo Mann N.P. 08/25/2019 I87.2 Venous insufficiency (chronic) (peripheral) Consuelo Mann N.P. 08/25/2019 H10.403 Unspecified chronic conjunctivitis, bilateral Consuelo Mann N.P. 08/25/2019 H91.8x3 Other specified hearing loss, bilateral Consuelo Mann N.P. 08/25/2019 L20.9 Atopic dermatitis, unspecified Consuelo Mann N.PLuis 08/25/2019 F17.210 Nicotine dependence, cigarettes, Consuelo Mann, N.P. uncomplicated 08/25/2019 J30.9 Allergic rhinitis, unspecified Consuelo Mann, N.P. 08/25/2019 J18.9 Pneumonia, unspecified organism Consuelo Mann, N.P. 08/25/2019 H92.03 Otalgia, bilateral Consuelo Mann, N.P. 08/25/2019 H10.022 Other mucopurulent conjunctivitis, left eye Consuelo Mann N.P. 08/25/2019 H10.45 Other chronic allergic conjunctivitis Consuelo Mann, N.P. 08/25/2019 B37.0 Candidal stomatitis Consuelo Mann, N.P. 08/25/2019 S22.000A Wedge compression fracture of unspecified Consuelo Mann N.PLuis thoracic vertebra, initial encounter for closed fracture 08/25/2019 L89.312 Pressure ulcer of right buttock, stage 2 Consuelo Mann, N.P. 08/25/2019 M54.17 Radiculopathy, lumbosacral region Consuelo Mann N.P. 08/25/2019 M54.31 Sciatica, right side Consuelo Mann N.P. 08/25/2019 M54.41 Lumbago with sciatica, right side Consuelo Mann, N.P. 08/25/2019 R53.83 Other fatigue Consuelo Mann N.P. 08/25/2019 I71.4 Abdominal aortic aneurysm, without rupture Consuelo Mann N.P. 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 08/25/2019 I73.9 Peripheral vascular disease, unspecified Consuelo Mann N.P. 08/25/2019 R07.9 Chest pain, unspecified Consuelo Mann N.P. 08/25/2019 F17.293 Nicotine dependence, other tobacco product, Consuelo Mann , N.P. with withdrawal 08/25/2019 Z23 Encounter for immunization Consuelo Mann N.P. 08/25/2019 J01.40 Acute pansinusitis, unspecified Consuelo Mann N.P. 08/25/2019 Z68.23 Body mass index (BMI) 23.0-23.9, adult Consuelo Mann N.P. 08/01/2019 I10 Essential (primary) hypertension Consuelo Mann N.P. 08/01/2019 E78.2 Mixed hyperlipidemia Consuelo Mann N.P. 08/01/2019 J44.9 Chronic obstructive pulmonary disease, Consuelo Mann N.P. 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 08/01/2019 J01.40 Acute pansinusitis, unspecified Consuelo Mann N.P. 08/01/2019 Z68.23 Body mass index (BMI) 23.0-23.9, adult Consuelo Mann N.P. 07/11/2019 I10 Essential (primary) hypertension Consuelo Mann N.P. 07/11/2019 E78.2 Mixed hyperlipidemia Consuelo Mann N.P. 07/11/2019 J44.9 Chronic obstructive pulmonary disease, Consuelo Mann N.P. 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 07/11/2019 N40.0 Benign prostatic hyperplasia without lower Consuelo Mann N.PLuis urinary tract symptoms 07/11/2019 K21.0 Gastro-esophageal reflux disease with Romeo Richards.PLuis esophagitis 07/11/2019 J30.2 Other seasonal allergic rhinitis Consuelo Mann N.P. 07/11/2019 M15.9 Polyosteoarthritis, unspecified Consuelo Mann N.P. 07/11/2019 M54.5 Low back pain Consuelo Mann N.P. 07/11/2019 R06.02 Shortness of breath Consuelo Mann N.P. 07/11/2019 R60.0 Localized edema Consuelo Mann N.PLuis 07/11/2019 E83.42 Hypomagnesemia Consuelo Mann N.P. 07/11/2019 R97.20 Elevated prostate specific antigen [PSA] Consuelo Mann N.PLuis 07/11/2019 M54.6 Pain in thoracic spine Consuelo Mann N.PLuis 07/11/2019 I87.2 Venous insufficiency (chronic) (peripheral) Consuelo Mann N.P. 07/11/2019 H10.403 Unspecified chronic conjunctivitis, bilateral Consuelo Mann N.PLuis 07/11/2019 H91.8x3 Other specified hearing loss, bilateral Consuelo Mann N.P. 07/11/2019 L20.9 Atopic dermatitis, unspecified Consuelo Mann N.PLuis 07/11/2019 F17.210 Nicotine dependence, cigarettes, Romeo Richards.PLuis uncomplicated 07/11/2019 J30.9 Allergic rhinitis, unspecified Consuelo Mann N.P. 07/11/2019 J18.9 Pneumonia, unspecified organism Consuelo Mann N.PLuis 07/11/2019 H92.03 Otalgia, bilateral Consuelo Mann N.PLuis 07/11/2019 H10.022 Other mucopurulent conjunctivitis, left eye Consuelo Mann N.P. 07/11/2019 H10.45 Other chronic allergic conjunctivitis Consuelo Mann N.P. 07/11/2019 B37.0 Candidal stomatitis Consuelo Mann N.PLuis 07/11/2019 S22.000A Wedge compression fracture of unspecified Consuelo Mann N.PLuis thoracic vertebra, initial encounter for closed fracture 07/11/2019 L89.312 Pressure ulcer of right buttock, stage 2 Consuelo Mann N.P. 07/11/2019 M54.17 Radiculopathy, lumbosacral region Consuelo Mann N.PLuis 07/11/2019 M54.31 Sciatica, right side Consuelo Mann N.P. 07/11/2019 M54.41 Lumbago with sciatica, right side Consuelo Mann N.P. 07/11/2019 R53.83 Other fatigue Consuelo Mann, N.P. 07/11/2019 I71.4 Abdominal aortic aneurysm, without rupture Consuelo Mann N.P. 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 07/11/2019 I73.9 Peripheral vascular disease, unspecified Consuelo Mann, N.P. 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 06/20/2019 I10 Essential (primary) hypertension Consuelo Mann N.P. 06/20/2019 E78.2 Mixed hyperlipidemia Consuelo Mann N.P. 06/20/2019 J44.9 Chronic obstructive pulmonary disease, Consuelo Mann N.P. 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 06/20/2019 M54.17 Radiculopathy, lumbosacral region Consuelo Mann, N.P. 06/20/2019 M54.31 Sciatica, right side Consuelo Mann, N.P. 06/20/2019 M54.41 Lumbago with sciatica, right side Consuelo Mann, N.P. 06/20/2019 R53.83 Other fatigue Consuelo Mann, N.P. 06/20/2019 I71.4 Abdominal aortic aneurysm, without rupture Consuelo Mann N.P. 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 06/20/2019 I73.9 Peripheral vascular disease, unspecified Consuelo Mann, N.P. 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 05/26/2019 N40.0 Benign prostatic hyperplasia without lower Consuelo Mann, N.P. urinary tract sym 05/26/2019 K21.0 Gastro-esophageal reflux disease with Consuelo Mann, N.P. esophagitis 05/26/2019 J30.2 Other seasonal allergic rhinitis Consuelo Mann, N.P. 05/26/2019 M15.9 Polyosteoarthritis, unspecified Consuelo Mann, [...] Mann, N.P. 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 04/23/2019 N40.0 Benign prostatic hyperplasia without lower Consuelo Mann N.PLuis urinary tract sym 04/23/2019 K21.0 Gastro-esophageal reflux disease with Consuelo Mann N.PLuis esophagitis 04/23/2019 J30.2 Other seasonal allergic rhinitis Consuelo Mann, N.P. 04/23/2019 M15.9 Polyosteoarthritis, unspecified Consuelo Mann N.P. 04/23/2019 M54.5 Low back pain Consuelo Mann N.P. 04/23/2019 R06.02 Shortness of breath Consuelo Mann N.P. 04/23/2019 R60.0 Localized edema Consuelo Mann N.P. 04/23/2019 E83.42 Hypomagnesemia Consuelo Mann N.P. 04/23/2019 R97.20 Elevated prostate specific antigen [PSA] Consuleo Mann N.P. 04/23/2019 M54.6 Pain in thoracic [...] Mann N.P. 04/23/2019 B37.0 Candidal stomatitis Consuelo Mann, N.P. 04/23/2019 S22.000A Wedge compression fracture of unspecified Consuelo Mann N.PLuis thoracic vertebra, 04/23/2019 L89.312 Pressure ulcer of right buttock, stage 2 Consuelo Mann, N.P. 04/23/2019 M54.17 Radiculopathy, lumbosacral region Consuelo Mann N.P. 04/23/2019 M54.31 Sciatica, right side Consuelo Mann, N.P. 04/23/2019 M54.41 Lumbago with sciatica, right side Consuelo Mann, N.P. 04/23/2019 R53.83 Other fatigue Consuelo Mann N.P. 04/23/2019 I71.4 Abdominal aortic aneurysm, without rupture Consuelo Mann N.P. 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 04/23/2019 I73.9 Peripheral vascular disease, unspecified Consuelo Mann N.P. 04/23/2019 R07.9 Chest pain, unspecified Consuelo Mann, N.P. 04/23/2019 Z68.23 Body mass index (BMI) 23.0-23.9, adult Consuelo Mann N.P. 03/31/2019 I10 Essential (primary) hypertension Consuelo Mann N.P. 03/31/2019 E78.2 Mixed hyperlipidemia Consuelo Mann N.P. 03/31/2019 J44.9 Chronic obstructive pulmonary disease, Consuelo Mann N.P. 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 03/31/2019 H92.03 Otalgia, bilateral Consuelo aMnn, N.P. 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 03/17/2019 N40.0 Benign prostatic hyperplasia without lower Consuelo Mann N.PLuis urinary tract sym 03/17/2019 K21.0 Gastro-esophageal reflux disease with Consuelo Mann N.PLuis esophagitis 03/17/2019 J30.2 Other seasonal allergic rhinitis Consuelo Mann N.P. 03/17/2019 M15.9 Polyosteoarthritis, unspecified Consuelo Mann, [...] N.P. 03/10/2019 I10 Essential (primary) hypertension Consuelo Mann, N.P. 03/10/2019 E78.2 Mixed hyperlipidemia Consuelo Mann, N.P. 03/10/2019 J44.9 Chronic obstructive pulmonary disease, Consuelo Mann, N.P. unspecified 03/10/2019 I25.10 Atherosclerotic heart disease of [place] Consuelo aMnn, N.PLuis coronary artery with 03/10/2019 E55.9 Vitamin D deficiency, unspecified Consuelo Mann, N.P. 03/10/2019 N40.0 Benign prostatic hyperplasia without lower Consuelo Mann, N.P. urinary tract sym 03/10/2019 K21.0 Gastro-esophageal reflux disease with Consuelo Mann N.P. esophagitis 03/10/2019 Z68.23 Body mass index (BMI) 23.0-23.9, adult Consuelo Mann, N.P. 03/10/2019 J30.2 Other seasonal allergic rhinitis [...] of unspecified Consuelo Mann N.P. 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 Plan of Treatment Future Appointment(s):09/19/2019 11:15 am - Consuelo Mann N.P. 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 THANK YOU. [id number] [facility] [address] [phone] Zechariah Montes MD Closed [address] [place] [address] [phone]
--- OUTSIDE RECORDS SUMMARY | 2019-09-07 17:47 | XMS REPORT | Summary of Care ---
:1940 Author Organization [facility] Address [address] [place] [address] Care Team Providers Name Role Phone Gal Stover MD Primary Care Provider Reason for Referral (Routine) Status Reason Specialty Diagnoses / Procedures Referred By Contact Referred To Contact Kaushik Guo MD [address] [place] [address] Scheduling Instructions Reason for Consult: GI bleed Patient Background: Blade Sanchez is a 79-y.o. male on anticoagulation for PE has been admitted for lower GI bleed. Has dropped his Hb from 12 to 10. Please evaluate and give your recommendation. (Routine) Status Reason Specialty Diagnoses / Procedures Referred By Contact Referred To Contact Ashkan Romero MD [address] [place] [address] Scheduling Instructions Reason for Consult: recent diagnosis of DVT/PE with hx of GI bleed from avms in past. Now return bleending c/w hemoroidal process and hemoptysis post PE eval hypercoagualbe state and if filter should be placed Patient tx'd for [place] flilter evaluation noted unable to be placed at [place] Patient Background: Blade Sanchez is a 79-y.o. male (Routine) Status Reason Specialty Diagnoses / Procedures Referred By Contact Referred To Contact Ashkan Romero MD [address] [place] [address] Scheduling Instructions Reason for Consult: recent diagnosis of DVT/PE with hx of GI bleed from avms in past. Now return bleending c/w hemoroidal process and hemoptysis post PE eval hypercoagualbe state and if filter should be placed Patient Background: Blade Sanchez is a 79-y.o. male Reason for Visit Auth/Cert Status Reason Specialty Diagnoses / Procedures Referred By Contact Referred To Contact Encounter Details Date Type Department Care Team Description 08/19/2019 - Hospital Encounter [facility] 6 Ashkan Escobedo MD [address] [place] [address] [phone] Inpatient 08/23/2019 1 Kaushik Puri MD [address] [place] [address] [place] [address] Erick Vela MD [address] [place] [address] [phone] Allergies Active Allergy Reactions Severity Noted Date Comments Sulfa Antibiotics Swelling 04/21/2019 Of abdomen documented as of this encounter (statuses as of 08/24/2019) Medications Medication Sig Dispensed Refills Start End Status Date Date Ipratropium-[place] Take by 0 Active rol (COMBIVENT inhalation. RESPIMAT IN) simvastatin Take 40 mg by 0 Active (ZOCOR) 40 MG Oral mouth EVERY Tab BEDTIME. albuterol 2.5 mg by 0 Active (PROVENTIL, Inhalation-SVN VENTOLIN) (2.5 route TWICE MG/3ML) 0.083% DAILY. Inhalation Nebu Soln predniSONE Take 10 mg by 0 Active (DELTASONE) 10 MG mouth DAILY. Oral Tab Tiotropium Take by 0 Active Davis-Olodaterol inhalation (STIOLTO RESPIMAT) DAILY. 2.5-2.5 MCG/ACT Inhalation Aero Soln furosemide (LASIX) Take 40 mg by 0 Active 40 MG Oral Tab mouth DAILY. nicotine Place 14 mg 0 Active transdermal onto skin patch-daily DAILY. (NICODERM) 14 MG/24HR Transdermal PATCH 24 HR potassium chloride Take 20 mEq by 0 Active (KLOR-CON) 20 MEQ mouth TWICE Oral DAILY. PackIndications: Indications: Hypokalemia Low Amount of Potassium in the Blood aspirin 81 MG Oral Take 1 Tab by 30 Tab 3 08/24/20 Active Tab EC mouth DAILY. 19 ferrous sulfate Take 1 Tab by 30 Tab 0 08/23/20 Active 325 (65 Fe) MG mouth DAILY. 19 Oral Tab hydro[address]ortisone Place 1 4 Suppository 0 08/23/20 Active (ANUSOL HC) 25 MG Suppository per 19 Rectal Suppos rectum TWICE DAILY. isosorbide Take 3 Tabs by 30 Tab 3 08/24/20 Active MONOnitrate mouth DAILY. 19 (IMDUR) 30 MG Oral TABLET SR 24 HR pantoprazole Take 1 Tab by 60 Tab 0 08/23/20 Active (PROTONIX) 40 MG mouth TWICE 19 Oral Tab EC DAILY. rivaroxaban Take 1 Tab by 60 Tab 0 08/23/20 Active (XARELTO) 15 MG mouth TWICE 19 Oral Tab DAILY. PT START MEDICATION AGAIN August 31/2019 cyanocobalamin Take 1 Tab by 30 Tab 0 08/24/20 Active (VITAMIN B12) 1000 mouth DAILY. 19 MCG Oral Tab metoprolol Take 1 Tab by 60 Tab 3 08/23/20 Active succinate (TOPROL mouth TWICE 19 XL) 50 MG Oral DAILY. TABLET SR 24 HR amLodipine Take 1 Tab by 30 Tab 3 08/23/20 Active (NORVASC) 5 MG mouth DAILY. 19 Oral Tab amLodipine Take 10 mg by 0 Discontinued (NORVASC) 10 MG mouth DAILY. 019 (Reorder) Oral Tab metoprolol Take 100 mg by 0 Discontinued succinate (TOPROL mouth DAILY. 019 (Reorder) XL) 100 MG Oral TABLET SR 24 HR Omeprazole 20 MG Take by mouth. 0 Discontinued Oral Tablet 019 Delayed Release Dispersible Losartan Take by mouth. 0 Discontinued Potassium-HCTZ 019 100-25 MG Oral Tab clopidogrel Take 1 Tab by 90 Tab 0 04/23/20 Discontinued (PLAVIX) 75 MG mouth DAILY. 19 019 Oral Tab Tamsulosin HCl Take 1 Cap by 90 Cap 0 04/22/20 Discontinued (FLOMAX) 0.4 MG mouth DAILY. 19 019 Oral Cap amiodarone Take 200 mg by 0 Discontinued (PACERONE, mouth DAILY. 019 CORDARONE) 200 MG Indications: Oral Atrial TabIndications: Fibrillation Atrial Fibrillation apixaban (ELIQUIS) Take by mouth 0 Discontinued 5 MG Oral TWICE DAILY. 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 08/20/2019 Hx of non-ST elevation myocardial infarction (NSTEMI) 08/20/2019 PVD (peripheral vascular disease) 04/08/2019 Overview: Added automatically from request for surgery [id number] Pain in joint involving right pelvic region and thigh 03/07/2019 documented as of this encounter (statuses as of 08/24/2019) Social History Tobacco Use Types Packs/Day Years [...] Sign Reading Time Taken Comments Blood Pressure 127/57 08/23/2019 11:45 AM EST Pulse 65 08/23/2019 11:45 AM EST Temperature 36.3 08/23/2019 11:45 AM C (97.3 EST F) Respiratory Rate 18 08/23/2019 11:45 AM EST Oxygen Saturation 97% 08/23/2019 11:45 AM EST Inhaled Oxygen Concentration - - Weight 74.7 kg (164 lb 11.2 oz) 08/20/2019 1:00 AM EST Height 172.7 cm (5' 8") 08/20/2019 1:00 AM EST Body Mass Index 25.04 08/20/2019 1:00 AM EST documented in this encounter Discharge Summaries Erick Vela MD - 08/23/2019 2:20 PM EST [facility] [place]. [id number] Discharge Summary Patient ID: Blade Sanchez [id number] 79-y.o. 1940 Admission date: 08/19/2019 Discharge date: 08/23/2019 Admitting Physician: Ashkan Romero MD Indication for Admission: Lower gastrointestinal bleed Principal Diagnosis: Acute blood loss anemia secondary to gastrointestinal bleed Other medical problems managed in the hospital: Hypokalemia recent history of pulmonary embolism and DVT on Xarelto Atrial fibrillation on Xarelto Severe COPD CAD and hypertension Discharged Condition: fair Hospital Course: Mr. Sanchez is a 79 years old male that presented for several episodes of bright red blood per rectum more so when he was wiping himself. The patient is fully anticoagulated related on Xarelto because of recent DVT and pulmonary embolism in July 2019 and also atrial fibrillation. The patient denied any abdominal pain. On admission his vital signs were stable. His hemoglobin was10.4 on admission and came down to 8.9. The patient was not transfused. The patient's Xarelto was held and 2 days later the patient underwent upper endoscopy that showed gastritis and biopsies were done for H. pylori. The colonoscopy for polyps, AVM, diverticulosis, and hemorrhoids. The polyps were removed. GI recommended not to place the patient on any anti- inflammatory medications or anticoagulation for 10 days. In view of the current inability to anticoagulate the vascular service was consulted for placement of a [place] filter which was placed 08/21/2019. The H&H remained stable and patient was discharged to hold any anticoagulation for 10 more days. The patient continues to have a small tinge bloody sputum and he was also advised that if it continues he should be seen by his primary care physicianbefore restarting the Xarelto. Otherwise the potassium was low and replaced. The white count was elevated but the infectious work-up was negative. The atrial fibrillation remained under good rate control as well as his COPD. We will resume his normal home medications. Consults: CONSULT TO HEMATOLOGY/ONCOLOGY CONSULT TO VASCULAR SURGERY CONSULT TO GASTROENTEROLOGY Treatments: antibiotics anticoagulation cardiac meds IV hydration Procedures: EGD and colonoscopy Operations: none Complications: none Medications: Current Discharge Medication List START taking these medications Aspirin 81 MG Tbec Dose: 81 mg Quantity: 30 Tab Refills: 3 Take 1 Tab by mouth DAILY. cyanocobalamin 1000 MCG Tabs Commonly known as: VITAMIN B12 Dose: 1,000 mcg Quantity: 30 Tab Refills: 0 Take 1 Tab by mouth DAILY. ferrous sulfate 325 (65 Fe) MG Tabs Dose: 325 mg Quantity: 30 Tab Refills: 0 Take 1 Tab by mouth DAILY. hydrocortisone 25 MG Supp Commonly known as: ANUSOL HC Dose: 25 mg Quantity: 4 Suppository Refills: 0 Place 1 Suppository per rectum TWICE DAILY. isosorbide MONOnitrate 30 MG Tb24 Commonly known as: IMDUR Dose: 90 mg Quantity: 30 Tab Refills: 3 Take 3 Tabs by mouth DAILY. pantoprazole 40 MG Tbec Commonly known as: PROTONIX Dose: 40 mg Quantity: 60 Tab Refills: 0 Take 1 Tab by mouth TWICE DAILY. rivaroxaban 15 MG Tabs Commonly known as: XARELTO Dose: 15 mg Quantity: 60 Tab Refills: 0 Take 1 Tab by mouth TWICE DAILY. PT START MEDICATION AGAIN August 31/2019 CONTINUE these medications which have changed amLodipine 5 MG Tabs Commonly known as: NORVASC Dose: 5 mg What changed: medication strength how much to take Quantity: 30 Tab Refills: 3 Take 1 Tab by mouth DAILY. metoprolol succinate 50 MG Tb24 Commonly known as: TOPROL XL Dose: 50 mg What changed: medication strength how much to take when to take this Quantity: 60 Tab Refills: 3 Take 1 Tab by mouth TWICE DAILY. CONTINUE these medications which have NOT CHANGED albuterol (2.5 MG/3ML) 0.083% Nebu Commonly known as: PROVENTIL, VENTOLIN Dose: 2.5 mg Refills: 0 2.5 mg by Inhalation-SVN route TWICE DAILY. COMBIVENT RESPIMAT IN Refills: 0 Take by inhalation. furosemide 40 MG Tabs Commonly known as: LASIX Dose: 40 mg Refills: 0 Take 40 mg by mouth DAILY. nicotine transdermal patch-daily 14 MG/24HR Pt24 Commonly known as: NICODERM Dose: 14 mg Refills: 0 Place 14 mg onto skin DAILY. potassium chloride 20 MEQ Pack Commonly known as: KLOR-CON Dose: 20 mEq For: Low Amount of Potassium in the Blood Refills: 0 Take 20 mEq by mouth TWICE DAILY. Indications: Low Amount of Potassium in the Blood predniSONE 10 MG Tabs Commonly known as: DELTASONE Dose: 10 mg Refills: 0 Take 10 mg by mouth DAILY. simvastatin 40 MG Tabs Commonly known as: ZOCOR Dose: 40 mg Refills: 0 Take 40 mg by mouth EVERY BEDTIME. STIOLTO RESPIMAT 2.5-2.5 MCG/ACT Aers Generic drug: Tiotropium Davis-Olodaterol Refills: 0 Take by inhalation DAILY. Stop taking these previous medications amiodarone 200 MG Tabs Commonly known as: PACERONE, CORDARONE apixaban 5 MG Tabs Commonly known as: ELIQUIS clopidogrel 75 MG Tabs Commonly known as: PLAVIX Losartan Potassium-HCTZ 100-25 MG Tabs Omeprazole 20 MG Tbdd Tamsulosin HCl 0.4 MG Caps Commonly known as: FLOMAX Where to Get Your Medications These medications were sent to [facility] [address] [place] [address] [address] [facility] [address] Hours: M-F: 9:00am - 9:00pm Aspirin 81 MG Tbec ferrous sulfate 325 (65 Fe) MG Tabs hydrocortisone 25 MG Supp isosorbide MONOnitrate 30 MG Tb24 Information about where to get these medications is not yet available Ask your nurse or doctor about these medications amLodipine 5 MG Tabs cyanocobalamin 1000 MCG Tabs metoprolol succinate 50 MG Tb24 pantoprazole 40 MG Tbec rivaroxaban 15 MG Tabs Activity: activity as tolerated Wound Care: None needed Follow-Up: PCP, vascular surgery Diet: CHF Diet Total duration of time spent: More than 30 minutes. Provider Signature: Erick Vela MD I saw the patient the day of discharge and was stable. I explained in detail the hospital treatment and future plan. I answer all the questions to satisfaction andthe patient seem to understand. documented in this encounter Discharge Instructions Elisha Grant RN - 08/23/2019Provider's Instructions Reason for Admission or Diagnosis:Acute blood loss anemia secondary to lower gastrointestinal bleed (polyps and venous malformations of the colon, and hemorroids) Activity/Restrictions: activity as tolerated Skin/Wound Care: None needed Discharge Diet: Heart healthy Diet Special Instructions: follow up with PCP Discharge Provider: Erick Vela MD Attending: Erick Vela MD Time: 13:00 Nurse's Instructions Problems to report to your Physician: Excessive pain or discomfort Fever > 100.5 degrees Difficulty breathing Increase or smell in wound drainage documented in this encounter Progress Notes Erick Vela MD - 08/22/2019 4:35 PM EST [address] [address] Internal Medicine Progress Note Date of Service: 08/22/2019 Patient: Blade Ayala #: [id number] Attending: ERICK VELA MD ,MD Subjective: Pt still with some blood after moving his bowels. Pt had the EGD and colonoscopy today Objective: Alert, oriented x3 General: cooperative Heart: regular rate & rhythm Lungs: clear to auscultation and percussion Abd: soft, nontender, nondistended, no masses or organomegaly; Ext: no edema Neuro: no focal deficits Vitals: Blood pressure 138/66, pulse 65, temperature 97.3 F (36.3 C), temperature source Temporal, resp. rate 20, height 5' 8" (1.727 m), weight 164 lb 11.2 oz (74.7 kg), SpO2 96 %. Recent Labs 08/22/19 0531 08/22/19 0758 08/22/19 1429 WBC 12.54* 11.77* 16.59* HGB 8.9* 8.8* 10.3* HCT 28.7* 28.7* 33.1* PLAT 252 246 266 Recent Labs 08/21/19 0712 08/22/19 0531 08/22/19 1429 NA 136 137 136 K 3.6 3.1* 3.8 CL 103 103 103 CO2 30 28 26 GLUCOSE 78 63* 82 BUN 19 12 10 CREATININE 0.9 0.7* 0.7* CALCIUM 8.2* 8.4 8.8 EGFR >60 >60 >60 Assessment/Plan: Active Problems: PVD (peripheral vascular disease) (HCC) DVT (deep venous thrombosis) (HCC) Pulmonary embolus (HCC) COPD, severe (HCC) Oxygen dependent History of GI bleed Hx of non-ST elevation myocardial infarction (NSTEMI) Acute blood loss anemia secondary to GI bleed in the setting of AC GI consulted and pt underwent EGD,colonoscopy. -EGD showed gastritis -colonoscopy with polyps, AVM, diverticulosis and internal hemorrhoids -Hh dropped to 8.8 -follow up in am Hypokalemia -replaced and follow up Elevated white count -follow up in am -getting UA and CxR for now Hx of PE (last Jul) and DVT Patient was started on Eliquis recently change to Heparin drip Vascular surgery placed an IVC filter 08/20/19 Hematology consulted and recommended to continue AC for now as PE is recent but GI recommended not anticoagulation for 10 days New diagnosis of Afib On metoprolol -holding anticoagulation for 10 days -good rate control Severe COPD on Home oxygen in home On tapering dose of steroids Hx of CAD and HTN ASA 81 mg daily Amlodipine 5mg daily Imdur 90 mg daily DVT prophylaxis: Heparin drip Diet: Cardiac Author: Erick Vela MD Seth Handley MD - 08/22/2019 1:13 PM ESTThe EGD shows gastritis, biopsied for H pylori and nodularity of the body also biopsied. The colonoscopy shows four polyps, avm, diverticulosis and hemorrhoids. No NSAID's or anticoagulation for 10 days. Gal Petit DO - 08/22/2019 9:45 AM EST [facility] [place]. [address] Internal Medicine Progress Note Date of Service: 08/22/2019 Patient: Blade Ayala #: [id number] Attending: ERICK VELA MD ,MD Subjective: Day 3 of hospitalization Overnight events: No acute events overnight Current Symptoms: Denies any acute complaints this AM Denies any worsening in dyspnea or Ligheadedness Objective: Alert, oriented x3 Constitutional: Not in any acute distress HENT: Normocephalic, atraumatic Neck: No thyromegaly. No masses or glands Respiratory: CTA BL CVS: No JVD, No visible chest pulsations, S1, S2 heard, no MRG GI: Not distended, non-tender, no organomegaly, resonant on percussion, bowel sounds + Extremities: No Pedal Edema Vitals: Blood pressure 157/68, pulse 68, temperature 97.3 F (36.3 C), temperature source Temporal, resp. rate 18, height 5' 8" (1.727 m), weight 164 lb 11.2 oz (74.7 kg), SpO2 90 %. I/O: Intake/Output Summary (Last 24 hours) at 08/22/2019 1454 Last data filed at 08/22/2019 1311 Gross per 24 hour Intake 800 ml Output Net 800 ml Relevant labs and Radiology Results: Lab Results Component Value Date WBC 11.77 (H) 08/22/2019 HGB 8.8 (L) 08/22/2019 HCT 28.7 (L) 08/22/2019 PLAT 246 08/22/2019 Lab Results Component Value Date NA 137 08/22/2019 K 3.1 (L) 08/22/2019 CL 103 08/22/2019 CO2 28 08/22/2019 GLUCOSE 63 (L) 08/22/2019 BUN 12 08/22/2019 CREATININE 0.7 (L) 08/22/2019 CALCIUM 8.4 08/22/2019 EGFR >60 08/22/2019 No results found for: INR No results found for: TROPONIN Assessment/Plan: Active Problems: PVD (peripheral vascular disease) (HCC) DVT (deep venous thrombosis) (HCC) Pulmonary embolus (HCC) COPD, severe (HCC) Oxygen dependent History of GI bleed Hx of non-ST elevation myocardial infarction (NSTEMI) GI Bleeding in the setting of Eliquis Use On Eliquis for Afib, DVT and PE S/p IVC Filter placement H/h Stable Undergoing Colonoscopy and EGD today Recommendations - H/H has remained stable - Decisions about anticoagulation will have to be made after all the results of the EGD / Colonoscopy are available Rest per primary team. Discussed with Dr Cadena and agreed upon Author: Gal Gastelum DO Associated attestation - Garfield Cadena MD - 08/23/2019 7:14 AM [facility] Supervising MD Documentation Date of Service: 08/22/19 B# [id number] I saw and evaluated the patient. Discussed with resident and agree with the resident's findings andplan as documented in the resident's note. Additional Comments: Endoscopic reports indicate nodular changes in the proximal GI tract whose biopsy will need to be closely followed up. There is no active bleeding now. 2 polyps were removed from the colon and an additional AVM fulgurated. As per previous hematology notes, IVC filter certainly offer short-term protection and from our standpoint in the short-term it is reasonably safe to continue to hold anticoagulation if there are remaining issues of bleeding. We would prefer to see anticoagulation resumed at the earliest opportunity (from the standpoint of concern over venous thromboembolism) but the timing of doing so will considerably rely on the judgment of gastroenterology. The colonoscopic note suggests that anticoagulation can resume now but it may be prudent to confirm that with a gastroenterology consult team. As anticoagulation is resumed, it will also be important watch very closely for any additional GI bleeding as we have not excluded the possibility of significant AVMs in the portion of the small bowel not yet visualized. Garfield Cadena MD Supervising PhysicianErick Vela MD - 08/21/2019 5:34 PM EST [address] [address] Internal Medicine Progress Note Date of Service: 08/21/2019 Patient: Blade Sanchez B #: [id number] Attending: ERICK VELA MD ,MD Subjective: Pt is feeling well with no more episodes of bleeding. No abdominal pain Objective: Alert, oriented x3 General: cooperative Heart: regular rate & rhythm Lungs: clear to auscultation and percussion Abd: soft, nontender, nondistended, no masses or organomegaly; Ext: no edema Neuro: no focal deficits Vitals: Blood pressure 137/65, pulse 67, temperature 97.6 F (36.4 C), temperature source Temporal, resp. rate 20, height 5' 8" (1.727 m), weight 164 lb 11.2 oz (74.7 kg), SpO2 95 %. Recent Labs 08/21/19 0004 08/21/19 0917 08/21/19 1637 WBC 12.96* 13.70* 14.27* HGB 8.9* 9.2* 9.5* HCT 28.9* 29.3* 31.4* PLAT 278 266 271 Recent Labs 08/20/19 0631 08/21/19 0712 NA 137 136 K 3.7 3.6 CL 102 103 CO2 34* 30 GLUCOSE 63* 78 BUN 23* 19 CREATININE 0.8 0.9 CALCIUM 8.7 8.2* EGFR >60 >60 Assessment/Plan: Active Problems: PVD (peripheral vascular disease) (HCC) DVT (deep venous thrombosis) (HCC) Pulmonary embolus (HCC) COPD, severe (HCC) Oxygen dependent History of GI bleed Hx of non-ST elevation myocardial infarction (NSTEMI) GI bleed in the setting of AC GI consulted and plan for EGD and colonoscopy tomorrow -stable HH -we will held Heparin at mid night Hx of PE (last Nov) and DVT Patient was started on Eliquis recently change to Heparin drip Vascular surgery placed an IVC filter 08/20/19 Hematology consulted and recommended to continue AC for now as PE is recent. New diagnosis of Afib On metoprolol and AC with heparin Severe COPD on Home oxygen in home On tapering dose of steroids Hx of CAD and HTN ASA 81 mg daily Amlodipine 5mg daily Imdur 90 mg daily DVT prophylaxis: Heparin drip Diet: Cardiac Author: Erick Vela MD Emiliano Stallings NP - 08/21/2019 12:07 PM EST [facility] [place]. [id number] GI Progress Note Date of Service: 08/21/2019 Patient: Blade Sanchez B #: [id number] Attending: ERICK VELA MD ,MD Subjective: Denies abdomen pain, nausea, vomiting. No BM today. Had IVC filter placed yesterday, still on heparin gtt. Discussed EGD/colonoscopy plans for tomorrow and he is in agreement. Questions answered. Temp 98.0 Objective: Blood pressure 155/69, pulse 58, temperature 98 F (36.7 C), temperature source Temporal, resp. rate 17, height 5' 8" (1.727 m), weight 164 lb 11.2 oz (74.7 kg), SpO2 94 %. I/O: Intake/Output Summary (Last 24 hours) at 08/21/2019 1207 Last data filed at 08/21/2019 0845 Gross per 24 hour Intake 1673 ml Output 675 ml Net 998 ml General: alert, no distress, cooperative Lungs: decreased breath sounds Both Heart: RRR Abd: soft, nontender, nondistended and + bowel sounds Ext: pitting edema Data: WBC Count Date Value Ref Range Status 08/21/2019 13.70 (H) 4.23 - 9.07 K/uL Final Comment: Methodology was changed 09/19/2018. Please note updated reference range and units. Hemoglobin Date Value Ref Range Status 08/21/2019 9.2 (L) 13.7 - 17.5 g/dL Final Hematocrit Date Value Ref Range Status 08/21/2019 29.3 (L) 40.1 - 51.0 % Final Platelet Count Date Value Ref Range Status 08/21/2019 266 163 - 337 K/uL Final Sodium Date Value Ref Range Status 08/21/2019 136 134 - 145 mmol/L Final Potassium Date Value Ref Range Status 08/21/2019 3.6 3.5 - 5.1 mmol/L Final Chloride Date Value Ref Range Status 08/21/2019 103 98 - 107 mmol/L Final CO2 Date Value Ref Range Status 08/21/2019 30 22 - 30 mmol/L Final Glucose Date Value Ref Range Status 08/21/2019 78 70 - 99 mg/dl Final Calcium Date Value Ref Range Status 08/21/2019 8.2 (L) 8.3 - 10.1 mg/dl Final BUN Date Value Ref Range Status 08/21/2019 19 9 - 20 mg/dl Final Creatinine Date Value Ref Range Status 08/21/2019 0.9 0.8 - 1.5 mg/dl Final Assessment/Plan: GIB in setting of patient on Eliquis: 79 yo male transferred from [facility] 08/19/19 with complaints of hemoptysis and toilet paper tinged blood recently placed on ATC. 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 He had IVC filter placement yesterday. He denies GI complaints. Anticipating EGD/colonoscopy tomorrow. Questions answered. No BM today. WBC 12.9 decreased from 15 yesterday Hgb 8.9 decreased from 9.4 BUN 19 Cr 1.0 B/C ratio 21 decreased from 29 Patient was discussed with Dr. Shetty. - GI plan is for EGD/colonoscopy tomorrow. Please ensure hgb is >8, transfuse if necessary and please check INR and ensure <1.5, reverse if necessary. Thank you. - NPO after midnight- - Colyte prep this evening. May flavor with Crystal Lite to make more palatable. - Please turn off heparin at 0700 08/22/19. Author: Emiliano Morris NP Associated attestation - Seth Shetty MD - 08/21/2019 12:41 PM [facility] Supervising MD Documentation Date of Service: 08/21/19 B# [id number] I saw and evaluated the patient. Discussed with ASSOCIATE PROFESSOR OF MANAGEMENT and agree with the ASSOCIATE PROFESSOR OF MANAGEMENT's findings and plan as documented in the ASSOCIATE PROFESSOR OF MANAGEMENT's note. Additional Comments: Patient with anemia and GI bleed. Plan EGD and colonoscopy to evaluate. Risks, benefits and alternatives discussed. Patient agrees. Seth Shetty MD Supervising Julius Alford MD - 08/21/2019 6:30 AM EST Post op check: Procedure: INSERTION VENA CAVA FILTER (N/A ) EBL: Minimal S: Blade Sanchez is a 79-y.o. s/p INSERTION VENA CAVA FILTER (N/A ). Progressing well postoperatively. Pain is under control. Denies nausea, vomiting, chest pain , shortness of breath. Tolerating diet well. Has been out of bed ambulating. O: BP 149/66 Pulse 61 Temp 97.6 F (36.4 C) (Temporal) Resp 19 Ht 5' 8" (1.727 m) Wt 164lb 11.2 oz (74.7 kg) SpO2 97% BMI 25.04 kg/m2 General: NAD, comfortable Respiratory: Normal respiratory effort Site: Pressure dressing is off, no signs of hematoma, right groin is soft, intact, without bleeding. Intake/Output Summary (Last 24 hours) at 08/21/2019 0630 Last data filed at 08/21/2019 0445 Gross per 24 hour Intake 1080 ml Output 875 ml Net 205 ml A/P: Blade Sanchez is a 79-y.o. s/p INSERTION VENA CAVA FILTER (N/A ) - Pressure dressing was taken down. The groin is soft, intact, without hematoma or swelling. Vascular surgery will sign off. Please contact us with any concern or questions. Julius Singh MD 08/21/2019 06:30 Kaushik Mason MD - 08/20/2019 4:03 PM EST [address] [address] Internal Medicine Progress Note Date of Service: 08/20/2019 Patient: Blade Ayala #: [id number] Attending: KAUSHIK GUO MD ,MD Subjective: Pateint was seen and examined at bedside, he denies any chest pain, his SOB is at baseline. Objective: Alert, oriented x3 General: cooperative Heart: regular rate & rhythm Lungs: clear to auscultation and percussion Abd: soft, nontender, nondistended, no masses or organomegaly; Ext: no edema Neuro: no focal deficits Vitals: Blood pressure 163/78, pulse 64, temperature 98.5 F (36.9 C), temperature source Temporal, resp. rate 18, height 5' 8" (1.727 m), weight 164 lb 11.2 oz (74.7 kg), SpO2 98 %. I/O: Intake/Output Summary (Last 24 hours) at 08/20/2019 1604 Last data filed at 08/20/2019 0745 Gross per 24 hour Intake 360 ml Output 200 ml Net 160 ml Relevant labs and Radiology Results: VL LOWER EXTREMITY DUPLEX VEINS BILATERAL Preliminary Result IMPRESSIONS: Hx: Right leg DVT. Venous duplex and compressions of the bilateral lower extremities shows evidence for acute, non occlusive venous thrombus in the right profunda femoral vein. No other deep or superficial thrombus was seen. No previous exam. XR CHEST 1 VIEW S/P PICC Final Result XR CHEST 1 VIEW S/P PICC Final Result XR CHEST 2 VIEW PA AND LATERAL (STANDARD) Final Result XR CHEST 1 VIEW S/P PICC Final Result CT CHEST ABDOMEN PELVIS ANGIOGRAPHY AORTA Final Result VL LOWER EXTREMITY VESSELS MAPPING BILATERAL Final Result XR FLUORO FOR PERC PLCMNT IVC FILTER (Results Pending) Assessment/Plan: Active Problems: PVD (peripheral vascular disease) (HCC) DVT (deep venous thrombosis) (HCC) Pulmonary embolus (HCC) COPD, severe (HCC) Oxygen dependent History of GI bleed Hx of non-ST elevation myocardial infarction (NSTEMI) GI bleed in the setting of AC GI consulted and plan for EGD and colonoscopy on Sunday Trend H & H q 8 Hx of PE (last Nov) and DVT Patient was started on Eliquis recently change to Heparin drip Vascular surgery to do IVC filter today Hematology consulted and recommended to continue AC for now as PE is recent. New diagnosis of Afib On metoprolol and AC with heparin Severe COPD on Home oxygen in home On tapering dose of steroids Hx of CAD and HTN ASA 81 mg daily Amlodipine 5mg daily Imdur 90 mg daily DVT prophylaxis: Heparin drip Diet: Cardiac Author: Kaushik Guo MD documented in this encounter Plan of Treatment Date Type Specialty Care Team Description 09/02/2019 Office Visit Vascular Surgery Guera Hunter MD [address] [address] 11/11/2019 Ancillary Procedure Radiology 11/11/2019 Office Visit Vascular Surgery Guera Hunter MD [address] [address] [phone] Name Type Priority Associated Diagnoses Date/Time TISSUE EXAM Lab Routine Acute blood loss anemia 08/22/2019 12:16 PM EST Name Type Priority Associated Diagnoses Order Schedule TISSUE EXAM Lab Routine Acute blood loss anemia *ONE TIME for 1 Occurrences starting 08/22/2019, 1 completed Health Maintenance Due Date Last Done Comments [...] of this encounter Implants Implanted Type Area Sheet Fed Printer Device Shelf Model / Identifier Expiration Serial / Lot Date Viabahn Graft [id number] - [id number] Right: [employer] 2020 [id number] / Implanted: Qty: 1 on 04/21/2019 by Guera Hunter MD at [facility] [employer] [id number] / Description:Inserted in the right common iliac artery. Viabahn Graft [id number] - [id number] Left: Iliac W. [employer]. [employer]ORE 12/23/2021 [id number] / Implanted: Qty: 1 on 04/21/2019 by Guera Hunter MD at [facility] [employer] [id number] / Vena Cava Celect Filter Retrievalable Fem - [id number] N/A: [employer]ena [employer] 05/20/2022 [id number] / Implanted: Qty: 1 on 08/20/2019 by Guera Hunter MD at [facility] Cava / [id number] documented as of this encounter Procedures Procedure Name Priority Date/Time Associated Comments Diagnosis MAGNESIUM LEVEL Routine 08/23/2019 6:53 Results for this AM EST procedure are in the results section. BASIC METABOLIC PANEL Routine 08/23/2019 6:53 Results for this AM EST procedure are in the results section. CBC NO DIFFERENTIAL Routine 08/23/2019 6:53 Results for this AM EST procedure are in the results section. PARTIAL Routine 08/23/2019 6:53 Results for this THROMBOPLASTIN TIME AM EST procedure are in the results section. CBC NO DIFFERENTIAL STAT 08/23/2019 12:14 Results for this AM EST procedure are in the results section. RAINBOW LAB HOLD Routine 08/22/2019 2:29 Results for this TUBES PM EST procedure are in the results section. RAINBOW DRAW LAVENDER Routine 08/22/2019 2:29 TOP PM EST BASIC METABOLIC PANEL Routine 08/22/2019 2:29 Results for this PM EST procedure are in the results section. CBC NO DIFFERENTIAL STAT 08/22/2019 2:29 Results for this PM EST procedure are in the results section. UPPER GI ENDOSCOPY Routine 08/22/2019 11:02 Results for this REPORT AM EST procedure are in the results section. XR RPH IMAGESTREAM Routine 08/22/2019 11:01 Results for this AM EST procedure are in the results section. ENDOSCOPY UPPER GI Planned Trip to 08/22/2019 10:58 OR AM EST COLONOSCOPY Planned Trip to 08/22/2019 10:58 OR AM EST COLONOSCOPY REPORT Routine 08/22/2019 10:57 Results for this AM EST procedure are in the results section. XR RPH IMAGESTREAM Routine 08/22/2019 7:59 Results for this AM EST procedure are in the results section. CBC NO DIFFERENTIAL STAT 08/22/2019 7:58 Results for this AM EST procedure are in the results section. MAGNESIUM LEVEL Routine 08/22/2019 5:31 Results for this AM EST procedure are in the results section. BASIC METABOLIC PANEL Routine 08/22/2019 5:31 Results for this AM EST procedure are in the results section. CBC NO DIFFERENTIAL Routine 08/22/2019 5:31 Results for this AM EST procedure are in the results section. PARTIAL Routine 08/22/2019 5:31 Results for this THROMBOPLASTIN TIME AM EST procedure are in the results section. RAINBOW LAB HOLD Routine 08/22/2019 12:08 Results for this TUBES AM EST procedure are in the results section. RAINBOW DRAW LIGHT Routine 08/22/2019 12:08 GREEN TOP AM EST PARTIAL Routine 08/22/2019 12:08 Results for this THROMBOPLASTIN TIME AM EST procedure are in the results section. CBC NO DIFFERENTIAL STAT 08/22/2019 12:07 Results for this AM EST procedure are in the results section. CBC NO DIFFERENTIAL STAT 08/21/2019 4:37 Results for this PM EST procedure are in the results section. PARTIAL Routine 08/21/2019 4:37 Results for this THROMBOPLASTIN TIME PM EST procedure are in the results section. ECHOCARDIOGRAM TTE Routine 08/21/2019 1:01 Results for this PM EST procedure are in the results section. CBC NO DIFFERENTIAL STAT 08/21/2019 9:17 Results for this AM EST procedure are in the results section. XR CHEST 1 VIEW Routine 08/21/2019 9:05 Results for this AM EST procedure are in the results section. COMPREHENSIVE STAT 08/21/2019 7:12 Results for this METABOLIC PANEL AM EST procedure are in W/REFLEX MAGNESIUM the results section. MAGNESIUM LEVEL STAT 08/21/2019 7:12 Results for this AM EST procedure are in the results section. PARTIAL Routine 08/21/2019 7:12 Results for this THROMBOPLASTIN TIME AM EST procedure are in the results section. CBC NO DIFFERENTIAL STAT 08/21/2019 12:04 Results for this AM EST procedure are in the results section. XR FLUORO FOR PERC Routine 08/20/2019 6:26 Results for this PLCMNT IVC FILTER PM EST procedure are in the results section. CBC NO DIFFERENTIAL STAT 08/20/2019 5:19 Results for this PM EST procedure are in the results section. INSERTION VENA CAVA Planned Trip to 08/20/2019 3:42 FILTER OR PM EST PARTIAL Routine 08/20/2019 12:41 Results for this THROMBOPLASTIN TIME PM EST procedure are in the results section. VL LOWER EXTREMITY STAT 08/20/2019 9:09 Results for this DUPLEX VEINS AM EST procedure are in BILATERAL the results section. RAINBOW DRAW RED TOP Routine 08/20/2019 6:31 AM EST RAINBOW LAB HOLD Routine 08/20/2019 6:31 Results for this TUBES AM EST procedure are in the results section. RAINBOW DRAW LAVENDER Routine 08/20/2019 6:31 TOP AM EST RAINBOW DRAW LIGHT Routine 08/20/2019 6:31 GREEN TOP AM EST BASIC METABOLIC PANEL STAT 08/20/2019 6:31 Results for this AM EST procedure are in the results section. PARTIAL Routine 08/20/2019 6:31 Results for this THROMBOPLASTIN TIME AM EST procedure are in the results section. TROPONIN Routine 08/20/2019 2:01 Results for this AM EST procedure are in the results section. PROTHROMBIN TIME STAT 08/20/2019 2:01 Results for this AM EST procedure are in the results section. CBC NO DIFFERENTIAL Routine 08/20/2019 2:01 Results for this AM EST procedure are in the results section. PARTIAL STAT 08/20/2019 2:01 Results for this THROMBOPLASTIN TIME AM EST procedure are in the results section. [facility] [place] SCANNED DOCUMENT 08/19/2019 12:00 PM EST XR CHEST 1 VIEW S/P Routine 08/14/2019 12:00 Pain PICC AM EST XR CHEST 1 VIEW S/P Routine 08/12/2019 12:00 Pain PICC AM EST XR CHEST 2 VIEW PA Routine 08/09/2019 12:00 Pain AND LATERAL AM EST (STANDARD) XR CHEST 1 VIEW S/P Routine 08/06/2019 12:10 Pain PICC AM EST CT CHEST ABDOMEN Routine 08/06/2019 12:05 Pain PELVIS ANGIOGRAPHY AM EST AORTA VL LOWER EXTREMITY Routine 08/06/2019 12:00 Pain VESSELS MAPPING AM EST BILATERAL documented in this encounter Results PARTIAL THROMBOPLASTIN TIME (08/23/2019 6:53 AM EST) PTT 31.9Comment: 21.3 - 35.9 SEC [place] [employer] Reference range [facility] updated 07/08/2019. Specimen Blood - Blood specimen (specimen) Performing Organization Address [facility] Phone Number [facility] [address] [place] [address] [phone] MAGNESIUM LEVEL (08/23/2019 6:53 AM EST) Magnesium 1.7 1.6 - 2.3 MG/DL [facility] Specimen Blood - Blood specimen (specimen) Performing Organization Address [facility] Phone Number [facility] [address] [place] [address] BASIC METABOLIC PANEL (08/23/2019 6:53 AM EST) Glucose 62 (L) 70 - 99 mg/dl [facility] BUN 10 9 - 20 mg/dl [facility] Creatinine 0.8 0.8 - 1.5 mg/dl [facility] Sodium 135 134 - 145 mmol/L [facility] Potassium 3.8 3.5 - 5.1 mmol/L [facility] Chloride 104 98 - 107 mmol/L [facility] CO2 25 22 - 30 mmol/L [facility] Calcium 8.7 8.3 - 10.1 mg/dl [facility] eGFR >60 See Interpretation [facility] Comment: Below ml/min/1.73ml GROUP Estimated GFR Interpretation: LABORATORY Above 60ml/min/1.73m2 = Normal Renal Function 30-59 ml/min/1.73m2 = Stage 3 Chronic Kidney Disease 15-29 ml/min/1.73m2 = Stage 4 Chronic Kidney Disease Less than 15 ml/min/1.73m2 = Stage 5 Chronic Kidney Disease The GFR value is calculated using the Modification of Diet in Renal Disease ( MDRD) Study Equation which can be found at: https://www.kidney.org/content/edxz-zqons-wwxvzivr BUN/Creatinine 13 6 - 22 RATIO [facility] Ratio [facility] Anion Gap 6 3 - 11 mmol/L [facility] Specimen Blood - Blood specimen (specimen) Performing Organization Address City/State/Zipcode Phone Number [facility] [address] [facility] [address] [place] [address] CBC NO DIFFERENTIAL (08/23/2019 6:53 AM EST) WBC Count 12.31 (H)Comment: 4.23 - 9.07 [facility] Methodology was K/uL [facility] changed 09/19/2018. Please note updated reference range and units. RBC Count 3.48 (L) 4.30 - 5.89 [facility] M/UL [facility] Hemoglobin 9.2 (L) 13.7 - 17.5 [facility] g/dL GROUP LAB[facility] Hematocrit 30.3 (L) 40.1 - 51.0 % [facility] MCV 87.1 79.0 - 92.2 [facility] FL [facility] MCH 26.4 25.7 - 32.2 [facility] PG [facility]ORY MCHC 30.4 (L) 32.3 - 36.5 [facility] g/dL GROUP LAB[facility] Platelet Count 217 163 - 337 [facility] K/uL [facility] MPV 9.3 (L) 9.4 - 12.4 FL [facility] RDW 20.0 (H) 11.6 - 14.4 % [facility] Specimen Blood - Blood specimen (specimen) Performing Organization Address [facility] Phone Number [facility] [address] [place] [address] [phone] CBC NO DIFFERENTIAL (08/23/2019 12:14 AM EST) WBC Count 11.54 (H)Comment: 4.23 - 9.07 [facility] Methodology was K/uL [facility] changed 09/19/2018. Please note updated reference range and units. RBC Count 3.21 (L) 4.30 - 5.89 [facility] M/UL [facility] Hemoglobin 8.7 (L) 13.7 - 17.5 [facility] g/dL [facility] Hematocrit 27.4 (L) 40.1 - 51.0 % [facility] MCV 85.4 79.0 - 92.2 [facility] FL [facility] MCH 27.1 25.7 - 32.2 [facility] PG [facility] MCHC 31.8 (L) 32.3 - 36.5 [facility] g/dL [facility] Platelet Count 189 163 - 337 [facility] K/uL [facility] MPV 8.7 (L) 9.4 - 12.4 FL [facility] RDW 19.9 (H) 11.6 - 14.4 % [facility] Specimen Blood - Blood specimen (specimen) Performing Organization Address [facility] Phone Number [place] [facility] [address] [place] [address] [phone] CBC NO DIFFERENTIAL (08/22/2019 2:29 PM EST) WBC Count 16.59 (H)Comment: 4.23 - 9.07 [facility] Methodology was K/uL [facility] LAB[facility] changed 09/19/2018. Please note updated reference range and units. RBC Count 3.79 (L) 4.30 - 5.89 [facility] M/UL [facility] Hemoglobin 10.3 (L) 13.7 - 17.5 [facility] g/dL [facility] Hematocrit 33.1 (L) 40.1 - 51.0 % [facility] MCV 87.3 79.0 - 92.2 [facility] FL [facility] MCH 27.2 25.7 - 32.2 [facility] PG [facility]ORY MCHC 31.1 (L) 32.3 - 36.5 [facility] g/dL [facility] Platelet Count 266 163 - 337 [facility] K/uL [facility] MPV 9.6 9.4 - 12.4 FL [facility] RDW 20.4 (H) 11.6 - 14.4 % [facility] Specimen Blood - Blood specimen (specimen) Performing Organization Address City/[facility]/Zipcode Phone Number [facility] [address] [address] RAINBOW DRAW LAVENDER TOP (08/22/2019 2:29 PM EST) Specimen Blood - Blood specimen (specimen) Performing Organization Address City/[facility] Phone Number [facility] [address] [place] [address] BASIC METABOLIC PANEL (08/22/2019 2:29 PM EST) Glucose 82 70 - 99 mg/dl [facility] BUN 10 9 - 20 mg/dl [facility] Creatinine 0.7 (L) 0.8 - 1.5 mg/dl [facility] Sodium 136 134 - 145 mmol/L [facility] Potassium 3.8 3.5 - 5.1 mmol/L [facility] Chloride 103 98 - 107 mmol/L [facility] CO2 26 22 - 30 mmol/L [facility] Calcium 8.8 8.3 - 10.1 mg/dl [facility] eGFR >60 See Interpretation [facility] Comment: Below ml/min/1.73ml GROUP Estimated GFR Interpretation: Sq LABORATORY Above 60ml/min/1.73m2 = Normal Renal Function 30-59 ml/min/1.73m2 = Stage 3 Chronic Kidney Disease 15-29 ml/min/1.73m2 = Stage 4 Chronic Kidney Disease Less than 15 ml/min/1.73m2 = Stage 5 Chronic Kidney Disease The GFR value is calculated using the Modification of Diet in Renal Disease ( MDRD) Study Equation which can be found at: https://www.kidney.org/content/mtpm-dfhem-ehawhltm BUN/Creatinine 14 6 - 22 [facility] Ratio [facility] Anion Gap 7 3 - 11 mmol/L [facility] Specimen Blood - Blood specimen (specimen) Performing Organization Address City/State/Zipcode Phone Number [facility] [address] [place] [address] UPPER GI ENDOSCOPY REPORT (08/22/2019 11:02 AM EST) Upper GI endoscopy [facility] [employer]OVATION __ Patient Name: Blade Sanchez Procedure Date: 08/22/2019 11:02 AM Date of : 1940 Admit Type: Inpatient Age: 79 Room: OR Gender: Male Note Status: Finalized Attending MD: SETH SHETTY JR, MD Instrument Name: [id number] __ Procedure: Upper GI endoscopy Indications: Iron deficiency anemia secondary to chronic blood loss Providers: SETH SHETTY JR, MD, Ksenia Mo (Nurse) Referring MD: GAL STOVER MD (Referring MD) Medicines: See the Anesthesia note for documentation of the administered medications Complications: No immediate complications. __ Procedure: The patient's current medications and allergies were reviewed and recorded in the nurses notes. The patient was made aware of the risk of the procedure which can include: bleeding, infection, perforation, an adverse reaction to sedation, and a risk of missed lesions, among others. The patient appeared to understand. An opportunity for questions was provided, and an informed consent form was signed. The scope was passed under direct vision. Throughout the procedure, the patient's blood pressure, pulse EKG, and oxygen saturations were monitored continuously. The Endoscope was introduced through the mouth, and advanced to the second part of duodenum. The Z-line was located at: The upper GI endoscopy was accomplished without difficulty. The patient tolerated the procedure well. Findings: The esophagus was normal. Diffuse mildly erythematous mucosa without bleeding was found in the gastric antrum. Biopsies were taken with a cold forceps for histology. Diffuse mucosal changes characterized by congestion and nodularity were found in the gastric body. Biopsies were taken with a cold forceps for histology. The examined duodenum was normal. Impression: - Normal esophagus. - Erythematous mucosa in the antrum. Biopsied. - Congested and nodular mucosa in the gastric body. Biopsied. - Normal examined duodenum. Recommendation: - Continue present medications. - Await pathology results. - Perform a colonoscopy today. - [facility]. Procedure Code(s): --- Professional --- 02832, 51, Esophagogastroduodenoscopy, flexible, transoral; with biopsy, single or multiple Diagnosis Code(s): --- Professional --- K31.89, Other diseases of stomach and duodenum D50.0, Iron deficiency anemia secondary to blood loss (chronic) CPT copyright 2017 [employer]. All rights reserved. The codes documented in this report are preliminary and upon automation architect review may be revised to meet current compliance requirements. SETH SHETTY JR, MD 08/22/2019 12:17:59 PM This report has been signed electronically. Number of Addenda: 0 Note Initiated On: 08/22/2019 11:02 AM CC Letter to: GAL STOVER MD (CC) Specimen Performing Organization Address City/State/Zipcode Phone Number [facility]R [facility] (08/22/2019 11:01 AM EST) Specimen Narrative Performed At [facility] OR [facility]. If no PACS link is available, no images were [facility] PO[facility] taken and saved to PACS. Performing Organization Address City/State/Zipcode Phone Number [facility] [address] [place] [address] COLONOSCOPY REPORT (08/22/2019 10:57 AM EST) GI Procedure [facility] [employer]ATION __ Patient Name: Blade Sanchez Procedure Date: 08/22/2019 10:57 AM Date of : 1940 Admit Type: Inpatient Age: 79 Room: 16 Gender: Male Note Status: Finalized Attending MD: SETH SHETTY JR, MD Instrument Name: [id number] __ Procedure: Colonoscopy Indications: Hematochezia, Iron deficiency anemia secondary to chronic blood loss Providers: SETH SHETTY JR, MD, Ksenia Mo (Nurse) Referring MD: GAL STOVER MD (Referring MD) Medicines: See the Anesthesia note for documentation of the administered medications Complications: No immediate complications. __ Procedure: The patient's current medications and allergies were reviewed and recorded in the nurses notes. The patient was made aware of the risk of the procedure which can include: bleeding, infection, perforation, an adverse reaction to sedation, and a risk of missed lesions, among others. The patient appeared to understand. An opportunity for questions was provided, and an informed consent form was signed. The scope was passed under direct vision. Throughout the procedure, the patient's blood pressure, pulse EKG, and oxygen saturations were monitored continuously. The Colonoscope was introduced through the anus and advanced to the cecum, identified by appendiceal orifice and ileocecal valve. The colonoscopy was performed without difficulty. The patient tolerated the procedure well. The quality of the bowel preparation was adequate to identify polyps 6 mm and larger in size. Findings: A 25 mm polyp was found in the cecum. The polyp was sessile. Preparations were made for mucosal resection. Eleview was injected with adequate lift of the lesion from the muscularis propria. Snare mucosal resection with suction (via the working channel) retrieval was performed. Resection was complete, and retrieval was complete. Fulguration to ablate the lesion remnants by argon beam at 2 liters/minute and 20 [place] was successful. To close a defect after mucosal resection, seven hemostatic clips were successfully placed. There was no bleeding at the end of the procedure. Two semi-sessile polyps were found in the ascending colon. The polyps were 7 to 10 mm in size. These polyps were removed with a hot snare. Resection and retrieval were complete. To close a defect after polypectomy, one hemostatic clip was successfully placed. There was no bleeding at the end of the procedure. A 14 mm polyp was found in the rectum. The polyp was semi-sessile. The polyp was removed with a hot snare. Resection and retrieval were complete. Multiple small-mouthed diverticula were found in the sigmoid colon and descending colon. Internal hemorrhoids were found during retroflexion. The hemorrhoids were medium-sized. A single large angiodysplastic lesion without bleeding was found in the cecum. Coagulation for hemostasis using argon beam at 2 liters/minute and 20 [place] was successful. The exam was otherwise without abnormality. Impression: - One 25 mm polyp in the cecum, removed with mucosal resection. Resected and retrieved. Treated with argon beam coagulation. Clips were placed. - Two 7 to 10 mm polyps in the ascending colon, removed with a hot snare. Resected and retrieved. Clip was placed. - One 14 mm polyp in the rectum, removed with a hot snare. Resected and retrieved. - Diverticulosis in the sigmoid colon and in the descending colon. - Internal hemorrhoids. - A single non-bleeding colonic angiodysplastic lesion. Treated with argon beam coagulation. - The examination was otherwise normal. - Mucosal resection was performed. Resection was complete, and retrieval was complete. Recommendation: - No aspirin, ibuprofen, naproxen, or other non-steroidal anti-inflammatory drugs for 10 days after polyp removal. - Resume Eliquis (apixaban) at prior dose in 10 days. - Await pathology results. - Repeat colonoscopy in 1 year for surveillance. - Return sooner if symptoms occur. Polyps can be missed. - Discharge patient to home. Procedure Code(s): --- Professional --- 68140, 59, Colonoscopy, flexible; with endoscopic mucosal resection 16167, 59, Colonoscopy, flexible; with control of bleeding, any method 41290, Colonoscopy, flexible; with removal of tumor(s), polyp(s), or other lesion(s) by snare technique Diagnosis Code(s): --- Professional --- D12.0, Benign neoplasm of cecum D12.2, Benign neoplasm of ascending colon K62.1, Rectal polyp K55.20, Angiodysplasia of colon without hemorrhage CPT copyright 2017 [employer]. All rights reserved. The codes documented in this report are preliminary and upon automation architect review may be revised to meet current compliance requirements. SETH SHETTY JR, MD 08/22/2019 1:20:23 PM This report has been signed electronically. Number of Addenda: 0 Note Initiated On: 08/22/2019 10:57 AM CC Letter to: GAL STOVER MD (CC) Specimen Performing Organization Address City/State/Zipcode Phone Number [employer] [facility] IMAGESTREAM (08/22/2019 7:59 AM EST) Specimen Narrative Performed At [facility] OR [employer]. If no PACS link is available, no images were [facility] taken and saved to PACS. Performing Organization Address City/[facility]/Zipcode Phone Number [facility] [address] [facility] [place] [address] CBC NO DIFFERENTIAL (08/22/2019 7:58 AM EST) WBC Count 11.77 (H)Comment: 4.23 - 9.07 [facility] Methodology was K/uL GROUP [facility]ORY changed 09/19/2018. Please note updated reference range and units. RBC Count 3.34 (L) 4.30 - 5.89 [facility] M/UL [facility] Hemoglobin 8.8 (L) 13.7 - 17.5 [facility] g/dL GROUP [facility] Hematocrit 28.7 (L) 40.1 - 51.0 % [facility] MCV 85.9 79.0 - 92.2 [facility] FL [facility] MCH 26.3 25.7 - 32.2 [facility] PG GROUP LAB[facility]ORY MCHC 30.7 (L) 32.3 - 36.5 [facility] g/dL GROUP [facility]ORY Platelet Count 246 163 - 337 [facility] K/uL [facility] MPV 9.6 9.4 - 12.4 FL [facility] RDW 19.8 (H) 11.6 - 14.4 % [facility] Specimen Blood - Blood specimen (specimen) Performing Organization Address City/[facility] Phone Number [facility] [address] [place] [address] [phone] PARTIAL THROMBOPLASTIN TIME (08/22/2019 5:31 AM EST) Pathologist [facility] [place] PTT 32.1Comment: 21.3 - 35.9 SEC [facility] Reference range [facility] updated 07/08/2019. Specimen Blood - Blood specimen (specimen) Performing Organization Address [facility] Phone Number [facility] [address] [place] [address] [phone] BASIC METABOLIC PANEL (08/22/2019 5:31 AM EST) Pathologist [facility] [place] Glucose 63 (L) 70 - 99 mg/dl [facility] BUN 12 9 - 20 mg/dl [facility] Creatinine 0.7 (L) 0.8 - 1.5 mg/dl [facility] Sodium 137 134 - 145 mmol/L [facility] Potassium 3.1 (L) 3.5 - 5.1 mmol/L [facility] Chloride 103 98 - 107 mmol/L [facility] CO2 28 22 - 30 mmol/L [facility] Calcium 8.4 8.3 - 10.1 mg/dl [facility] eGFR >60 See Interpretation [facility] Comment: Below ml/min/1.73ml GROUP Estimated GFR Interpretation: LABORATORY Above 60ml/min/1.73m2 = Normal Renal Function 30-59 ml/min/1.73m2 = Stage 3 Chronic Kidney Disease 15-29 ml/min/1.73m2 = Stage 4 Chronic Kidney Disease Less than 15 ml/min/1.73m2 = Stage 5 Chronic Kidney Disease The GFR value is calculated using the Modification of Diet in Renal Disease ( MDRD) Study Equation which can be found at: https://www.kidney.org/content/aymi-wpcmm-pladxnyc BUN/Creatinine 17 6 - 22 RATIO [facility] Ratio [facility] Anion Gap 6 3 - 11 mmol/L [facility] Specimen Blood - Blood specimen (specimen) Performing Organization Address City/State/Zipcode Phone Number [facility] [address] [place] [address] CBC NO DIFFERENTIAL (08/22/2019 5:31 AM EST) WBC Count 12.54 (H)Comment: 4.23 - 9.07 [facility] Methodology was K/uL [facility] changed 09/19/2018. Please note updated reference range and units. RBC Count 3.34 (L) 4.30 - 5.89 [facility] M/UL [facility] Hemoglobin 8.9 (L) 13.7 - 17.5 [facility] g/dL [facility] Hematocrit 28.7 (L) 40.1 - 51.0 % [facility] MCV 85.9 79.0 - 92.2 [facility] FL [facility] MCH 26.6 25.7 - 32.2 [facility] PG [facility] MCHC 31.0 (L) 32.3 - 36.5 [facility] g/dL [facility] Platelet Count 252 163 - 337 [facility] K/uL [facility] MPV 9.8 9.4 - 12.4 FL [facility] RDW 19.5 (H) 11.6 - 14.4 % [facility] Specimen Blood - Blood specimen (specimen) Performing Organization Address [facility] Phone Number [facility] [facility] [address] [place] [address] [phone] MAGNESIUM LEVEL (08/22/2019 5:31 AM EST) Magnesium 1.7 1.6 - 2.3 MG/DL [facility] Specimen Blood - Blood specimen (specimen) Performing Organization Address [facility] Phone Number [facility] [address] [place] [address] RAINBOW DRAW LIGHT GREEN TOP (08/22/2019 12:08 AM EST) Specimen Blood - Blood specimen (specimen) Performing Organization Address [facility] Phone Number [facility] [facility] 1 [place] [address] [phone] PARTIAL THROMBOPLASTIN TIME (08/22/2019 12:08 AM EST) PTT 134.0 (HH)Comment: 21.3 - 35.9 SEC [place] [employer] Reference range [facility] updated 07/08/2019. Specimen Blood - Blood specimen (specimen) Performing Organization Address [facility] Phone Number [employer] [facility] [address] [place] [address] [phone] CBC NO DIFFERENTIAL (08/22/2019 12:07 AM EST) WBC Count 15.04 (H)Comment: 4.23 - 9.07 [facility] Methodology was K/uL [facility] changed 09/19/2018. Please note updated reference range and units. RBC Count 3.86 (L) 4.30 - 5.89 [facility] M/UL [facility] Hemoglobin 10.5 (L) 13.7 - 17.5 [facility] g/dL [facility] Hematocrit 32.9 (L) 40.1 - 51.0 % [facility] MCV 85.2 79.0 - 92.2 [facility] FL [facility] MCH 27.2 25.7 - 32.2 [facility] PG [facility] MCHC 31.9 (L) 32.3 - 36.5 [facility] g/dL [facility] Platelet Count 282 163 - 337 [facility] K/uL [facility] MPV 9.2 (L) 9.4 - 12.4 [facility] RDW 19.7 (H) 11.6 - 14.4 % [facility] Specimen Blood - Blood specimen (specimen) Performing Organization Address [facility] Phone Number [facility] [address] [place] [address] [phone] PARTIAL THROMBOPLASTIN TIME (08/21/2019 4:37 PM EST) PTT 121.5 (H)Comment: 21.3 - 35.9 SEC [facility] Reference range [facility] updated 07/08/2019. Specimen Blood - Blood specimen (specimen) Performing Organization Address [facility] Phone Number [facility] [address] [place] [address] CBC NO DIFFERENTIAL (08/21/2019 4:37 PM EST) WBC Count 14.27 (H)Comment: 4.23 - 9.07 [facility] Methodology was K/uL [facility] changed 09/19/2018. Please note updated reference range and units. RBC Count 3.54 (L) 4.30 - 5.89 [facility] M/UL [facility] Hemoglobin 9.5 (L) 13.7 - 17.5 [facility] g/dL GROUP [facility] Hematocrit 31.4 (L) 40.1 - 51.0 % [facility] MCV 88.7 79.0 - 92.2 [facility] FL [facility] MCH 26.8 25.7 - 32.2 [facility] PG [facility]ORY MCHC 30.3 (L) 32.3 - 36.5 [facility] g/dL GROUP [facility]ORY Platelet Count 271 163 - 337 [facility] K/uL [facility] MPV 10.8 9.4 - 12.4 FL [facility] RDW 19.8 (H) 11.6 - 14.4 % [facility] Specimen Blood - Blood specimen (specimen) Performing Organization Address [facility] Phone Number [facility] [address] [place] [address] ECHOCARDIOGRAM TTE (08/21/2019 1:01 PM EST) ECHOCARDIOGRAM TTE ECHOCARDIOGRAPHY REPORT CARDIOLOGY DEPARTMENT Patient Name: LAURA MURGUIA Status: Inpatient MR Number: [id number] Gender: Male : 1940 Location: [place] Age:79 year(s) Exam Date: 08/21/2019 01:01 PM Height: 68 inches Weight: 164 pounds Study Performed: 2D echocardiogram, M-Mode, Doppler , Color Doppler, ECHOCARDIOGRAM TTE, Echocardiogram . Ordering ERICK VELA Provider: Referring GAL STOVER MD Provider: Charge Poster: Harika Vazquez [facility] Room Number [id number] Interpreting RICARDO Physician GRIFFIN SAVAGE BSA: 1.88 m^2 Interpreting BMI: 24.94 kg/m^2 Fellow Nurse Technical Quality: Good visualization Heart Rate (HR): 60bpm Blood Pressure (BP): 155/69mmHg INDICATION FOR STUDY: Atrial fibrillation. HISTORY: 79 year old male for Atrial Fibrillation. FINAL IMPRESSION: Left ventricular cavity size is normal. Left ventricular wall thickness is moderately increased. No evidence of LVOT obstruction. No regional wall motion abnormalities. Global systolic function is normal with estimated LV EF 60-65%. There is mild mitral annular calcification. There is mild mitral regurgitation. There is aortic sclerosis. There is no aortic stenosis or regurgitation. There is trivial tricuspid regurgitation. Pulmonary artery systolic pressure could not be reliably estimated from this study. There is no pulmonic regurgitation. The left atrium size is normal Right atrial area is normal The right ventricle is normal in size with normal contractility. There is no pericardial effusion. No prior study for comparison. OBSERVATIONS & FINDINGS: Using 2d (3d if applicable), M-mode, Colorflow, Continuous wave doppler and Pulse wave doppler interrogation Left Ventricle Left ventricular cavity size is normal. Left ventricular wall thickness is moderately increased. No evidence of LVOT obstruction. No regional wall motion abnormalities. Global systolic function is normal with estimated LV EF 60-65%. Left Atrium Vertical and lateral dimensions are 4.6 cm and 2.9 cm respectively. The left atrium size is normal (Normal indexed volume <35 ml/m2). Mitral Valve Mitral valve has mildly thickened but flexible leaflets. There is mild mitral annular calcification. There is mild mitral regurgitation. No evidence of mitral stenosis or prolapse. Aortic Valve Aortic valve is tricuspid with thickened and calcified leaflets with reduced mobility. Transaortic continuous wave systolic velocities peak at 2.15 m/sec. There is aortic sclerosis. There is no aortic stenosis or regurgitation. Right Ventricle The right ventricle is normal in size with normal contractility. Right Atrium Vertical and lateral dimensions measure 4.2 cm and 3.1 cm respectively. Right atrial area is normal (18 cm2 or less) and measures 15.8 cm2. Tricuspid Valve The tricuspid valve is structurally normal with mobile leaflets. There is trivial tricuspid regurgitation. Pulmonary artery systolic pressure could not be reliably estimated from this study. Pulmonic Valve The pulmonic valve is structurally normal with flexible leaflets. There is no pulmonic regurgitation. Pericardium / Pleura There is no pericardial effusion. Miscellaneous Visualized portions of aorta are within normal limits. Interatrial septum appears intact by 2D imaging and Color Doppler interrogation. No evidence of PFO or ASD. Measurements & Calculations: M-Mode / 2D Measurements Value Normal Value Normal LVIDd: 4.86 cm 3.5-5.5 AO Root: 3.2 cm 2.0-3.7 LVIDs: 3.59 cm 3.0-4.0 LA Dimension: cm 1.9-4.0 IVSd: 1.32 cm 0.7-1.1 LVOT: 2.03 cm 1.5-2.5 LVPWD: 1.3 cm 0.7-1.1 RV Diastolic Dimension: 3.7 cm EF Estimated: 64 % 50-70% Doppler Measurements & Calculations: Mitral: Aortic: Area (PHT): 2.66 cm^2 LVOT VTI: 18.2 cm Peak E-Wave: 74.6 cm/s Peak Velocity: 175.33 cm/s Peak A-Wave: 67.3 cm/s Peak Gradient: 12.3 mmHg Peak Gradient: 2.23 mmHg P1/2t: 82.8 msec Area (continuity): 1.3 cm^2 Mean Velocity: 120.9 cm/s Mean Gradient: 6.59 mmHg AV VTI: 45.22 cm E/A Ratio: 1.11 Pulmonic: Peak Velocity: 103 cm/s Peak Gradient: 4.24 mmHg LA Dimension: 2.9 cm RA dimension:3.1 cm LA/Aorta: 0.91 RA area:15.8 cm^2 LA Area: 15.2 cm^2 LA Volume/Index: 28.97 ml /15m^2 Diastolic Dimension: 4.86 cm Septum Diastolic: 1.32 cm PW Diastolic: 1.3 cm Winn dimension:3.7 cm EF Calculated: 63.96% CO: 3.53 l/min FS: 26.13 % LVOT LV Length: 6.5 cm Peak Velocity: 58.5 cm/s LVOT Diameter: 2.03 cm Peak Gradient: 1.37 mmHg Systolic Dimension: 3.59 cm LVOT Diameter: 2.03 cm Mean Velocity: 34.7 cm/s EF Estimated: 64% Mean Gradient: 0.56 mmHg CI: 1.88 l/min*m^2 LVOT VTI: 18.2 cm Aorta LV EDV/LV EDV Index: 111 ml/59 m^2 Aortic Root: 3.2 cm LV ESV/LV ESV Index: 40 ml/21 m^2 Ascending Aorta: 3.36 cm LVOT Diameter: 2.03 cm Pulmonary Vein: S Velocity: 44.1 cm/s D Velocity: 38.2 cm/s A Reversal Velocity: 50 cm/s A Reversal Duration: 182 msec Signature Ejection Fraction 64 % CARDIOLOGY DEPARTMENT AV AREA 1.3 cm2 CARDIOLOGY DEPARTMENT RVSP mmHg CARDIOLOGY DEPARTMENT LA Volume 28.97 ml CARDIOLOGY DEPARTMENT LVEDd 4.86 cm CARDIOLOGY DEPARTMENT LVESd 3.59 cm CARDIOLOGY DEPARTMENT IVSd 1.32 cm CARDIOLOGY DEPARTMENT LVPWd 1.3 cm CARDIOLOGY DEPARTMENT ESV 40 ml CARDIOLOGY DEPARTMENT EDV 111 ml CARDIOLOGY DEPARTMENT AV Mean Gradient 6.59 mmHg CARDIOLOGY DEPARTMENT Specimen Performing Organization Address City/State/Zipcode Phone Number CARDIOLOGY DEPARTMENT CBC NO DIFFERENTIAL (08/21/2019 9:17 AM EST) WBC Count 13.70 (H)Comment: 4.23 - 9.07 [facility] Methodology was K/uL GROUP LAB[facility]ORY changed 09/19/2018. Please note updated reference range and units. RBC Count 3.41 (L) 4.30 - 5.89 [facility] M/UL [facility] Hemoglobin 9.2 (L) 13.7 - 17.5 [facility] g/dL GROUP LABORATORY Hematocrit 29.3 (L) 40.1 - 51.0 % [facility] MCV 85.9 79.0 - 92.2 [facility] FL GROUP LAB[facility]ORY MCH 27.0 25.7 - 32.2 [facility] PG GROUP LABORATORY MCHC 31.4 (L) 32.3 - 36.5 [facility] g/dL GROUP LABORATORY Platelet Count 266 163 - 337 [facility] K/uL GROUP LAB[facility]ORY MPV 9.1 (L) 9.4 - 12.4 FL [facility] RDW 20.0 (H) 11.6 - 14.4 % [facility] Specimen Blood - Blood specimen (specimen) Performing Organization Address City/State/Zipcode Phone Number [facility] [address] [facility] [place] [address] XR CHEST 1 VIEW (08/21/2019 9:05 AM EST) Specimen Impressions Performed At As above Urgency: Routine. This is a routine medical imaging report. Recommendation: No specific imaging recommendation. Signed by Skyla Gannon MD on 08/21/2019 10:30 AM Narrative Performed At Procedure(s): XR CHEST 1 VIEW Date of service: 08/21/2019 8:39 AM Provided clinical information: 79 years, Male, "Hemoptysis" Procedure and materials: Standard protocol. Comparison studies: August 08, 2019 Observations: Emphysema. Interstitial lung disease lower lung dorsey. Interstitial type pulmonary vascular congestion Procedure Note Interface, Rad Results - 08/21/2019 10:32 AM EST Procedure(s): XR CHEST 1 VIEW Date of service: 08/21/2019 8:39 AM Provided clinical information: 79 years, Male, "Hemoptysis" Procedure and materials: Standard protocol. Comparison studies: August 08, 2019 Observations: Emphysema. Interstitial lung disease lower lung dorsey. Interstitial type pulmonary vascular congestion IMPRESSION As above Urgency: Routine. This is a routine medical imaging report. Recommendation: No specific imaging recommendation. Signed by Skyla Gannon MD on 08/21/2019 10:30 AM MAGNESIUM LEVEL (08/21/2019 7:12 AM EST) Magnesium 1.9 1.6 - 2.3 MG/DL [place] [employer] [facility] Specimen Blood - Blood specimen (specimen) Performing Organization Address [facility] Phone Number [place] [employer] [facility] [address] [place] [address] PARTIAL THROMBOPLASTIN TIME (08/21/2019 7:12 AM EST) PTT 266.9 (HH)Comment: 21.3 - 35.9 SEC [facility] Reference range GROUP LAB[facility]ORY updated 07/08/2019. Specimen Blood - Blood specimen (specimen) Performing Organization Address [facility] Phone Number [place] [employer] [facility] [address] [place] [address] COMPREHENSIVE METABOLIC PANEL W/REFLEX MAGNESIUM (08/21/2019 7:12 AM EST) Sodium 136 134 - 145 mmol/L [facility] Potassium 3.6 3.5 - 5.1 mmol/L [facility] Chloride 103 98 - 107 mmol/L [facility] CO2 30 22 - 30 mmol/L [facility] Calcium 8.2 (L) 8.3 - 10.1 mg/dl [facility] Albumin 2.4 (L) 3.5 - 5.0 g/dl [facility] BUN 19 9 - 20 mg/dl [facility] Creatinine 0.9 0.8 - 1.5 mg/dl [facility] Glucose 78 70 - 99 mg/dl [facility] Total Protein 4.9 (L) 6.3 - 8.2 g/dl [facility] Total Bilirubin 0.7 0.0 - 1.1 MG/DL [facility] AST 41 17 - 59 U/L [facility] ALT 75 (H) 21 - 72 U/L [facility] Alkaline 54 40 - 150 U/L [facility] Phosphatase GROUP LABORATORY eGFR >60 See Interpretation [facility] Comment: Below ml/min/1.73ml GROUP Estimated GFR Interpretation: LABORATORY Above 60ml/min/1.73m2 = Normal Renal Function 30-59 ml/min/1.73m2 = Stage 3 Chronic Kidney Disease 15-29 ml/min/1.73m2 = Stage 4 Chronic Kidney Disease Less than 15 ml/min/1.73m2 = Stage 5 Chronic Kidney Disease The GFR value is calculated using the Modification of Diet in Renal Disease ( MDRD) Study Equation which can be found at: https://www.kidney.org/content/syqz-dgxee-zemowosd BUN/Creatinine 21 6 - 22 RATIO [facility] Ratio GROUP LABORATORY Anion Gap 3 3 - 11 mmol/L [facility] A/G Ratio 1.0 0.8 - 2.0 ratio [facility] Specimen Blood - Blood specimen (specimen) Performing Organization Address City/State/[facility] Phone Number [facility] 1 [facility] [place] [address] CBC NO DIFFERENTIAL (08/21/2019 12:04 AM EST) WBC Count 12.96 (H)Comment: 4.23 - 9.07 [facility] Methodology was K/uL GROUP LAB[facility]ATORY changed 09/19/2018. Please note updated reference range and units. RBC Count 3.33 (L) 4.30 - 5.89 [facility] M/UL [facility] Hemoglobin 8.9 (L) 13.7 - 17.5 [facility] g/dL GROUP LABORATORY Hematocrit 28.9 (L) 40.1 - 51.0 % [facility] MCV 86.8 79.0 - 92.2 [facility] FL GROUP [facility]ORY MCH 26.7 25.7 - 32.2 [facility] PG GROUP LAB[facility]ORY MCHC 30.8 (L) 32.3 - 36.5 [facility] g/dL GROUP LABORATORY Platelet Count 278 163 - 337 [facility] K/uL [facility] MPV 9.5 9.4 - 12.4 FL [facility] RDW 19.6 (H) 11.6 - 14.4 % [facility] Specimen Blood - Blood specimen (specimen) Performing Organization Address City/State/Zipcode Phone Number [facility] 1 [place] [address] [phone] XR FLUORO FOR PERC PLCMNT IVC FILTER (08/20/2019 6:26 PM EST) Specimen Impressions Performed At As above Urgency: Routine. This is a routine medical imaging report. Recommendation: No specific imaging recommendation. Signed by Skyla Gannon MD on 08/21/2019 10:20 AM Narrative Performed At Procedure(s): XR FLUORO FOR PERC PLCMNT IVC FILTER Date of service: 08/20/2019 3:46 PM Provided clinical information: 79 years, Male, "insertion IVC filter" Procedure and materials: Standard protocol. Comparison studies: None. Observations: Fluoroscopic assistance during the procedure with 109 seconds of fluoroscopy time, total dose 28.30 mGy Procedure Note Interface, Rad Results - 08/21/2019 10:22 AM EST Procedure(s): XR FLUORO FOR PERC PLCMNT IVC FILTER Date of service: 08/20/2019 3:46 PM Provided clinical information: 79 years, Male, "insertion IVC filter" Procedure and materials: Standard protocol. Comparison studies: None. Observations: Fluoroscopic assistance during the procedure with 109 seconds of fluoroscopy time, total dose 28.30 mGy IMPRESSION As above Urgency: Routine. This is a routine medical imaging report. Recommendation: No specific imaging recommendation. Signed by Skyla Gannon MD on 08/21/2019 10:20 AM CBC NO DIFFERENTIAL (08/20/2019 5:19 PM EST) WBC Count 15.00 (H)Comment: 4.23 - 9.07 [facility] Methodology was K/uL GROUP [facility]ORY changed 09/19/2018. Please note updated reference range and units. RBC Count 3.47 (L) 4.30 - 5.89 [facility] M/UL [facility] Hemoglobin 9.4 (L) 13.7 - 17.5 [facility] g/dL [facility] Hematocrit 29.4 (L) 40.1 - 51.0 % [facility] MCV 84.7 79.0 - 92.2 [facility] FL [facility] MCH 27.1 25.7 - 32.2 [facility] PG [facility] MCHC 32.0 (L) 32.3 - 36.5 [facility] g/dL [facility] Platelet Count 308 163 - 337 [facility] K/uL [facility] MPV 10.3 9.4 - 12.4 FL [facility] RDW 19.6 (H) 11.6 - 14.4 % [facility] Specimen Blood - Blood specimen (specimen) Performing Organization Address City/[facility]/Zipcode Phone Number [facility] [address] [address] [phone] PARTIAL THROMBOPLASTIN TIME (08/20/2019 12:41 PM EST) PTT 103.3 (H)Comment: 21.3 - 35.9 SEC [facility] Reference range [facility] updated 07/08/2019. Specimen Blood - Blood specimen (specimen) Performing Organization Address [facility] Phone Number [facility] [address] [address] [phone] VL LOWER EXTREMITY DUPLEX VEINS BILATERAL (08/20/2019 9:09 AM EST) Specimen Impressions Performed At IMPRESSIONS: Hx: Right leg DVT. Venous duplex and compressions of the bilateral lower extremities shows evidence for acute, non occlusive venous thrombus in the right profunda femoral vein. No other deep or superficial thrombus was seen. No previous exam. Narrative Performed At NAME: Laura Murguia BN: [id number] VASCULAR LAB [facility] STUDY DATE: 08/20/19 [address] [place] [id number] : 40 AP: Dale Lynne MD REFERRING PROVIDER: Jc Roberto EXAMINATION: Venous - Lower INDICATION: History DVT -V12.51 TECHNOLOGIST: Matt Yu Procedure Note Interface, Rad Results - 08/21/2019 11:40 AM EST NAME: Laura Murguia BN: [id number] VASCULAR LAB [facility] STUDY DATE: 08/20/19 [address] [place] [id number] : 40 AP: Dale Lynne MD REFERRING PROVIDER: Jc Roberto EXAMINATION: Venous - Lower INDICATION: History DVT -V12.51 TECHNOLOGIST: Matt Yu IMPRESSION IMPRESSIONS: Hx: Right leg DVT. Venous duplex and compressions of the bilateral lower extremities shows evidence for acute, non occlusive venous thrombus in the right profunda femoral vein. No other deep or superficial thrombus was seen. No previous exam. BASIC METABOLIC PANEL (08/20/2019 6:31 AM EST) [facility] Glucose 63 (L) 70 - 99 mg/dl [facility] BUN 23 (H) 9 - 20 mg/dl [facility] Creatinine 0.8 0.8 - 1.5 mg/dl [facility] Sodium 137 134 - 145 mmol/L [facility] Potassium 3.7 3.5 - 5.1 mmol/L [facility] Chloride 102 98 - 107 mmol/L [facility] CO2 34 (H) 22 - 30 mmol/L [facility] Calcium 8.7 8.3 - 10.1 mg/dl [facility] eGFR >60 See Interpretation [facility] Comment: Below ml/min/1.73ml GROUP Estimated GFR Interpretation: Sq LABORATORY Above 60ml/min/1.73m2 = Normal Renal Function 30-59 ml/min/1.73m2 = Stage 3 Chronic Kidney Disease 15-29 ml/min/1.73m2 = Stage 4 Chronic Kidney Disease Less than 15 ml/min/1.73m2 = Stage 5 Chronic Kidney Disease The GFR value is calculated using the Modification of Diet in Renal Disease ( MDRD) Study Equation which can be found at: https://www.kidney.org/content/hhlg-apcoe-lhlwfppn BUN/Creatinine 29 (H) 6 - 22 RATIO [facility] LABORATORY Anion Gap 1 (L) 3 - 11 mmol/L [facility] Specimen Blood - Blood specimen (specimen) Performing Organization Address City/[facility]/Zipcode Phone Number [facility] [address] [place] [address] RAINBOW DRAW LAVENDER TOP (08/20/2019 6:31 AM EST) Specimen Blood - Blood specimen (specimen) Performing Organization Address City/[facility]/Zipcode Phone Number [facility] [address] [place] [address] RAINBOW DRAW LIGHT GREEN TOP (08/20/2019 6:31 AM EST) Specimen Blood - Blood specimen (specimen) Performing Organization Address [facility] Phone Number [facility] [address] [place] [address] RAINBOW DRAW PINK TOP (08/20/2019 6:31 AM EST) Specimen Blood - Blood specimen (specimen) Performing Organization Address [facility] Phone Number [facility] [address] [place] [address] [phone] PARTIAL THROMBOPLASTIN TIME (08/20/2019 6:31 AM EST) PTT 183.3 (HH)Comment: 21.3 - 35.9 SEC [facility] Reference range GROUP [facility] updated 07/08/2019. Specimen Blood - Blood specimen (specimen) Performing Organization Address [facility] Phone Number [facility] [address] [place] [address] CBC NO DIFFERENTIAL (08/20/2019 2:01 AM EST) WBC Count 15.58 (H)Comment: 4.23 - 9.07 [facility] Methodology was K/uL [facility] changed 09/19/2018. Please note updated reference range and units. RBC Count 3.91 (L) 4.30 - 5.89 [facility] M/UL [facility] Hemoglobin 10.4 (L) 13.7 - 17.5 [facility] g/dL [facility] Hematocrit 33.7 (L) 40.1 - 51.0 % [facility] MCV 86.2 79.0 - 92.2 [facility] FL [facility] MCH 26.6 25.7 - 32.2 [facility] PG [facility] MCHC 30.9 (L) 32.3 - 36.5 [facility] g/dL GROUP [facility] Platelet Count 312 163 - 337 [facility] K/uL [facility] MPV 8.9 (L) 9.4 - 12.4 FL [facility] RDW 19.3 (H) 11.6 - 14.4 % [facility] Specimen Blood - Blood specimen (specimen) Performing Organization Address [facility] Phone Number [facility] [address] [phone] PROTHROMBIN TIME (08/20/2019 2:01 AM EST) INR 1.64 (H)Comment: INR 0.88 - 1.13 [facility] Therapeutic Range: Ratio [facility] 2.0 - 3.5 Protime 19.1 (H)Comment: 12.0 - 14.5 sec [facility] Reference range GROUP [facility] updated 07/08/2019. Specimen Blood - Blood specimen (specimen) Performing Organization Address [facility] Number [facility] [address] [id number] PARTIAL THROMBOPLASTIN TIME (08/20/2019 2:01 AM EST) PTT 33.3Comment: 21.3 - 35.9 SEC [facility] Reference range GROUP [facility] updated 07/08/2019. Specimen Blood - Blood specimen (specimen) Performing Organization Address [facility] Number [facility] [address] [id number] TROPONIN (08/20/2019 2:01 AM EST) Troponin 0.179 (HH) 0.000 - 0.034 [facility] Comment: ng/ml [facility] Negative less than or equal to 0.034 ng/ml Indeterminate 0.0351 - 0.119 ng/ml (Suggest Repeat in 4 Hours) Critical (AMI Cutoff) greater than or equal to 0.120 ng/ml Specimen Blood - Blood specimen (specimen) Performing Organization [facility] Phone Number [facility] [address] [address] XR CHEST 1 VIEW S/P PICC (08/14/2019 12:00 AM EST) Specimen Performing Organization Address [facility] Phone Number [facility] [address]CT [address] [address] XR CHEST 1 VIEW S/P PICC (08/12/2019 12:00 AM EST) Specimen Performing Organization [facility] Phone Number [facility] [address]CT [address] [address] XR CHEST 2 VIEW PA AND LATERAL (STANDARD) (08/09/2019 12:00 AM EST) Specimen Performing Organization [facility]/State/Zipcode Phone Number [facility] POCT [address] [address] XR CHEST 1 VIEW S/P PICC (08/06/2019 12:10 AM EST) Specimen Performing Organization Address [facility] Phone Number [facility] [address]CT [address] [address] [address] CHEST ABDOMEN PELVIS ANGIOGRAPHY AORTA (08/06/2019 12:05 AM EST) Specimen Performing Organization Address [facility] Phone Number [facility] [address]CT [address] [address] VL LOWER EXTREMITY VESSELS MAPPING BILATERAL (08/06/2019 12:00 AM EST) Specimen Performing Organization Address [facility] Phone Number [facility] [address] [id number] documented in this encounter Visit Diagnoses Diagnosis Acute blood loss anemia - Primary Acute posthemorrhagic anemia Pain Generalized pain Paroxysmal atrial fibrillation (HCC) Atrial fibrillation DVT (deep venous thrombosis) ([facility]) Acute venous embolism and thrombosis of unspecified deep vessels of lower extremity Pulmonary embolus (HCC) Other pulmonary embolism and infarction PVD (peripheral vascular disease) ([facility]) Peripheral vascular disease, unspecified COPD, severe (HCC) Chronic airway obstruction, not elsewhere classified Oxygen dependent Dependence on supplemental oxygen Hx of non-ST elevation myocardial infarction (NSTEMI) Old myocardial infarction Gastrointestinal hemorrhage associated with anorectal source documented in this encounter Administered Medications Medication Order MAR Action Action Date Dose Rate Site albuterol (PROVENTIL, VENTOLIN) Given 08/23/2019 5:13 AM EST 2.5 mg nebulizer solution (RT ADMIN) (5 MG/ML) 0.5% 2.5 mg, Inhalation-SVN, Q4 HRS PRN, Starting 08/20/19 at 0055, Until 08/23/19 at 1620, Shortness of Breath/Wheezing/dyspnea, PER RT FREQUENCY, Ordering this RT Admin Medication will automatically order the patient to be placed on the Respiratory Therapy Patient Driven Protocol RT may increase the frequency of administration to q2h, as needed, if symtoms are not controlled at current ordered frequency. If administer three times consecutively without improvement, call provider., Given 08/20/2019 1:26 AM EST 2.5 mg albuterol HFA (VENTOLIN) inhalation Given 08/23/2019 9:00 AM EST 2 Puffs (Supervised Pt Admin) 2 Puff 2 Puff, Inhalation, BID, First dose on Sun08/20/19 at 0900, Until Discontinued, Shake Well, Given 08/22/2019 9:02 PM EST 2 Puffs Given 08/22/2019 9:42 AM EST 2 Puffs albuterol-ipratropium (DUO-NEB) nebulizer unit Given 08/22/2019 3:32 PM EST 3 mg dose (RT ADMIN) 0.5-2.5 (3) MG/3ML 3 mg, Inhalation-SVN, RT Q4 HRS PRN, Starting Sun08/20/19 at 0159, Until 08/23/19 at 1620, PER RT FREQUENCY, Ordering this RT Admin Medication will automatically order the patient to be placed on the Respiratory Therapy Patient Driven Protocol RT may increase the frequency of administration to q2h, as needed, if symtoms are not controlled at current ordered frequency. If administer three times consecutively without improvement, call provider., Given 08/22/2019 11:04 AM EST 3 mg Given 08/21/2019 4:04 PM EST 3 mg amLodipine (NORVASC) tablet 5 mg Given 08/23/2019 9:00 AM EST 5 mg 5 mg, Oral, DAILY, First dose on Sun08/20/19 at 0900, Until Discontinued Given 08/22/2019 9:40 AM EST 5 mg Given 08/21/2019 8:38 AM EST 5 mg aspirin (ECOTRIN) enteric coated tablet 81 mg Given 08/23/2019 9:00 AM EST 81 mg 81 mg, Oral, DAILY, First dose on Sun08/20/19 at 0900, Until Discontinued, This medication dosage form should NOT be crushed. Please call the inpatient Pharmacy for more information. [facility] ext. [phone] [facility] ext. [phone] , Given 08/22/2019 9:35 AM EST 81 mg Given 08/20/2019 9:12 AM EST 81 mg cyanocobalamin (VITAMIN B12) tablet 1,000 Given 08/23/2019 9:00 AM EST 1, 000 mcg mcg 1,000 mcg, Oral, DAILY, First dose on Sun08/20/19 at 0900, Until Discontinued Given 08/22/2019 9:35 AM EST Given 08/21/2019 8:37 AM EST 1,000 mcg ferrous sulfate tablet 325 mg Given 08/23/2019 9:00 AM EST 325 mg 325 mg, Oral, BID, First dose on Sun08/20/19 at 0100, Until Discontinued, This medication dosage form should NOT be crushed. Please call the inpatient Pharmacy for more information. [facility] ext[phone] [facility] ext. [phone] , Given 08/22/2019 9:01 PM EST 325 mg Given 08/22/2019 9:35 AM EST 325 mg guaifenesin (MUCINEX) 12 hour tablet 600 mg Given 08/23/2019 9:00 AM EST 600 mg 600 mg, Oral, BID, First dose on Sun08/20/19 at 0100, Until Discontinued Given 08/22/2019 9:01 PM EST 600 mg Given 08/22/2019 9:36 AM EST 600 mg heparin in dextrose 5% IV New Bag 08/21/2019 6:18 PM EST 900 Units/hr 9 mL /hr premix 100 units/mL 1,300 Units/hr (13 mL/hr), Intravenous, at 13 mL/hr, TITRATE, Starting Sun08/20/19 at 0130, Until Sun08/22/19 at 1642, Heparin bolus and drip per DVT/PE protocol, Wt Based Heparin Protocol: DVT / PE, See reference link for protocol details. , , Please start without bolus, , DVT/PE Weight Based Heparin Dosing , Pt Name: Blade Sanchez , Rm: 655-1 , Sex: Male , Height: 68.0 Inches ; [place] Body Weight: 68.4 Kilograms , Weight: 74.7 Kilograms ; Dosing Weight: 74.70 Kilograms , Heparin Bolus: 0 Units , Maintenance: 1,300 Units/Hr (13 mls/HR) , , HEPARIN ADJUSTMENTS , Note: The Infusion rates expressed in (mls/HR) are based on a standardized Heparin IV , Solution containing 25,000 Units of Heparin in 250 ML (100 Units/ML). , , PTT: Bolus Dose: Infusion Adjustment , < 50: 4500 Units: Increase by 300 Units/hr (3 mL/hr), 51 - 64 3000 Units: Increase by 200 Units/hr (2 mL/hr), 65 - 79 1500 Units: Increase by 100 Units/hr (1 mL/hr), 80 - 120 0 Units: No Change - Therapeutic Range , 121 - 134 0 Units: Decrease by 100 Units/hr (1 mL/hr), 135 - 164 0 Units: Hold 30 minutes then Decrease by 100 Units/hr (1 mL/hr), 165 - 199 0 Units: Hold 60 minutes then Decrease by 200 Units/hr (2 mL/hr), >200 0 Units: Hold 90 minutes then Decrease by 300 Units/hr (3 mL/hr), Prepared by: Prakash Castanon [facility]. 08/20/19 1:20 AM , , Rate Change 08/21/2019 10:27 AM EST 10 Units/hr 0.1 mL/hr New Bag 08/21/2019 8:16 AM EST 13 Units/hr 0.1 mL/hr hydralazine (APRESOLINE) injection 10 mg Given 08/21/2019 11:36 PM EST 10 mg 10 mg, Intravenous Push, Q6 HRS PRN, Starting Peggy 08/21/19 at 2310, Until Sun08/22/19 at 0214, SBP>160 or DBP>100 hydrocortisone (ANUSOL HC) suppository 25 mg Given 08/23/2019 9:04 AM EST 25 mg 25 mg, Rectal, BID, 4 doses, First dose on 08/23/19 at 0900, Last dose on 08/24/19 at 2100 hydrocortisone (ANUSOL-HC,PROCTOSOL-HC) 2.5 Given 08/23/2019 9:00 AM EST 1 Appl % rectal cream 1 Appl 1 Appl, Rectal, BID, First dose on Sun08/20/19 at 0120, Until Discontinued Given 08/22/2019 9:03 PM EST 1 Appl Rectum Given 08/22/2019 10:05 AM EST 1 Appl ipratropium (ATROVENT HFA) 17 MCG/ACT Given 08/23/2019 9:00 AM EST 2 Puffs inhalation (Supervised Pt Admin) 2 Puff 2 Puff, Inhalation, BID, First dose on Sun08/20/19 at 0900, Until Discontinued Given 08/22/2019 9:02 PM EST 2 Puffs Given 08/22/2019 9:42 AM EST 2 Puffs isosorbide MONOnitrate (IMDUR) 24 hour tablet Given 08/23/2019 9:00 AM EST 90 mg 90 mg 90 mg, Oral, DAILY, First dose on Sun08/20/19 at 0900, Until Discontinued, This medication dosage form should NOT be crushed. Please call the inpatient Pharmacy for more information. [facility] ext. [phone] [facility] ext. [phone] , Given 08/22/2019 9:35 AM EST 90 mg Given 08/21/2019 8:37 AM EST 90 mg metoprolol (LOPRESSOR) tablet 50 mg Given 08/23/2019 9:00 AM EST 50 mg 50 mg, Oral, BID, First dose on Sun08/20/19 at 0100, Until Discontinued Given 08/22/2019 9:01 PM EST 50 mg Given 08/22/2019 9:35 AM EST 50 mg nitroglycerin (NITROSTAT) sublingual tablet (150) 0.4 mg 0.4 mg, Sublingual, Q5 MIN PRN, Starting Sun08/20/19 at 0051, Until Sat at 1620, chest pain normal saline IV New Bag 08/22/2019 12:26 PM EST Intravenous, at 25 mL/hr, CONTINUOUS, Starting Sun08/22/19 at 0000, Until Sun08/22/19 at 1643 New Bag 08/22/2019 1:00 AM EST 25 mL/hr pantoprazole (PROTONIX) enteric coated tablet Given 08/22/2019 9:01 PM EST 40 mg 40 mg 40 mg, Oral, BID, First dose on Sun08/20/19 at 0100, Until Discontinued, This medication dosage form should NOT be crushed. Please call the inpatient Pharmacy for more information. [facility] ext[phone] [facility] ext. [phone] , Given 08/22/2019 9:41 AM EST 40 mg Given 08/21/2019 9:16 PM EST 40 mg pantoprazole (PROTONIX) enteric coated tablet 40 mg 40 mg, Oral, DAILY, First dose (after last modification) on Sun08/24/19 at 0900 , Until Discontinued, This medication dosage form should NOT be crushed. Please call the inpatient Pharmacy for more information. [facility] ext[phone] [facility] ext. [phone] , polyethylene glycol & electrolytes Given 08/21/2019 4:27 PM EST 4,000 mL (COLYTE, GOLYTELY) oral solution 4,000 mL 4,000 mL, Oral, X1, 1 dose, First dose on Peggy 08/21/19 at 1600, *Give 4000 mL of colonic lavage (Colyte) starting at 4 p.m.*Encourage to drink 8 oz every ten minutes. Continue until 4 liters have been consumed and rectal effluent is clear.*Water or clear liquids permitted after colyteNOTE: Patient must drink 2 liters minimum and should be encouraged to finish all 4 liters. IF patient does not take amount of colonic lavage required, DO NOT give enemas in a.m. until you have checked with the doctor., potassium chloride (K-DUR) controlled Given 08/22/2019 9:41 AM EST 40 mEq release tablet 40 mEq 40 mEq, Oral, X1, 1 dose, First dose on Sun08/22/19 at 0940, Per the Package Insert, if the patient is having difficulty swallowing whole tablets, place the tablet in approximately 4 fluid ounces of water. Allow 2 minutes for the tablet (s) to disintegrate. Stir for 30 seconds after the tablet has disintegrated. Swirl the suspension and have the patient consume the entire contents of the glass immediately by drinking or by the use of a straw. Add another 1 fluid ounce of water, swirl and consume immediately. Then add an additional 1 fluid ounce of water, swirl and consume immediately. Aqueous suspension of K-Dur tablets that is not taken immediately should be discarded. The use of other liquids for suspending K-Dur tablets is not recommended., potassium chloride IV premix 10 mEq/ 100 New Bag 08/22/2019 3:59 PM EST 10 mEq mL (PERIPHERAL) 10 mEq 10 mEq, Intravenous, Q1 HR, 4 doses, First dose on Sun08/22/19 at 0940, Last dose on Sun08/22/19 at 1240, Administration of potassium infusion requires the use of an IV pump. May be administered via a PERIPHERAL line or CENTRAL line. Administer each 10 mEq over 1 hour., New Bag 08/22/2019 2:42 PM EST 10 mEq New Bag 08/22/2019 9:45 AM EST 10 mEq predniSONE (DELTASONE) tablet 10 mg 10 mg, Oral, DAILY, 3 doses, First dose on Sun08/25/19 at 0900, Last dose on Sun08/27/19 at 0900, Take with food., predniSONE (DELTASONE) tablet 20 mg Given 08/23/2019 9:00 AM EST 20 mg 20 mg, Oral, DAILY, 3 doses, First dose on Sun08/22/19 at 0900, Last dose on 08/24/19 at 0900, Take with food., Given 08/22/2019 9:36 AM EST 20 mg predniSONE (DELTASONE) tablet 30 mg Given 08/21/2019 8:38 AM EST 30 mg 30 mg, Oral, DAILY, 2 doses, First dose on Sun08/20/19 at 0900, Last dose on Sun08/21/19 at 0900, Take with food., Given 08/20/2019 9:14 AM EST 30 mg simvastatin (ZOCOR) tablet 40 mg Given 08/22/2019 9:01 PM EST 40 mg 40 mg, Oral, QHS, First dose on Sun08/20/19 at 0100, Until Discontinued Given 08/21/2019 9:16 PM EST 40 mg Given 08/20/2019 10:05 PM EST 40 mg documented in this encounter Insurance Payer Benefit Plan / Subscriber ID Effective Dates Phone Address Type Group AETNA MEDICARE AETNA MEDICARE xxxxxxxx 2018-Present [employer] AD[employer]AGE ADVANTAGE Guarantor Name Account Type Relation to Date of Phone Billing Address Patient Blade Sanchez Personal/Family 1940 [id number] [facility] (Home) [facility] [phone] [place], [place] (Work) [id number] documented as of this encounter
[2019-09-07 18:00] LABS: ABS Eosinophils 0.2 10^3/ul (0-0.6); ABS Monocytes 1.3 10^3/ul (0-0.8); ABS Neutrophils 5.1 10^3/ul (1.5-7.7); Eosinophil % 2.7 %; Hematocrit 27 % (42-52); Hemoglobin 8.9 g/dL (14.0-18.0); Lymphocyte % 13.4 %; Mean Corpuscular HGB Conc 33 g/dL (31-36); Mean Corpuscular Hemoglobin 29 pg (27-31); Mean Corpuscular Volume 87 fL (80-94); Mean Platelet Volume 6.8 fL (7.4-10.4); Platelet Count 450 10^3/uL (150-450); Red Blood Count 3.14 10^6 /uL (4.18-5.48); Red Cell Distribution Width 23 % (10-15); White Blood Count 7.6 10^3/uL (3.5-10.8)
[2019-09-07 18:13] LABS: Albumin 3.1 g/dL (3.2-5.2); Albumin/Globulin Ratio 1.3 (1-3); BUN/Creatinine Ratio 30.9 (8-20); Calcium 8.5 mg/dL (8.6-10.3); EGFR African American 90.3 (>60); EGFR Non-African American 74.7 (>60); Globulin 2.4 g/dL (2-4); Potassium 4.2 mmol/L (3.5-5.0); Total Bilirubin 0.4 mg/dL (0.2-1.0); Total Protein 5.5 g/dL (6.4-8.9)
[2019-09-07 18:14] LABS: INR 2.09 (0.82-1.09)
[2019-09-07] MEDS ORDERED: Pantoprazole IV* 40 MG IV ONE (19:02)
[2019-09-07] MEDS ORDERED: HYDROcodone/ACETAM 10-325 MG(NF) 1 TAB PO PRN (19:04)
[2019-09-07] MEDS ORDERED: LORazepam TAB(*) 0.5 MG PO PRN (19:23)
[2019-09-07] MEDS: Pantoprazole* 80 mg IN NS 80 MG/250 ML BAG IV SCH (19:34)
[2019-09-07] MEDS: Tiotropium Brom/Olodaterol MDI INH SCH (21:30)
[2019-09-07] MEDS: Metoprolol Tartrate TAB* 50 mg PO SCH (21:37)
[2019-09-07] MEDS ORDERED: Albuterol/Ipratropium NEB.SOL* Albuterol 2.5 MG/Ipratropium 0.5 MG 3 ML INH SCH (22:00)
--- NOTE | 2019-09-07 22:13 | HP ---
CC: Dr. Shi; Mauricio Mann NP, PCP* HISTORY AND PHYSICAL: DATE OF ADMISSION: 09/07/19 CHIEF COMPLAINT: Rectal bleed and melenic stool. SUBJECTIVE: This is a 79-year-old male who came into the emergency room around 3 o'clock in the afternoon. He said he went to the bathroom, he had urge to move his bowel and he had a large dark melenic stool with calvin streak of bright red blood. He did feel weak afterwards. Given his prolonged history of GI bleed associated with his anticoagulation, he came into the ER to be evaluated. In the emergency room, his labs were noted to be hemoglobin of 8.9 wherein on 08/19/19 when he was discharged from the hospital, it was 10.9 and his hematocrit was 27 and back on 09/08/19, it was 34. Mr. Sanchez is well known to me from his previous hospitalization where his last hospitalization was for large submassive pulmonary embolism, required ICU stay and prolonged hospitalization due to his PE with a known previous history of GI bleed. At that time, he was monitored very closely for close to 2 weeks, was discharged home only to have a GI bleed about 24 hours afterwards. He was later transferred to [facility] in [place] where he underwent colonoscopy, removal of a large polyp, upper endoscopy which was unremarkable, had an IVC filter and was released home from [facility] on 08/24/19. He was off anticoagulation up until 08/31/19, he was started back on Xarelto 15 mg b.i.d. and then today on 09/07/19, he started the bleeding again. He denies the use of any NSAIDs. His blood pressure in the emergency room seems to be stable with a blood pressure 168/93 and 149/76, pulse is 90. Therefore, the patient is being admitted for a GI bleed source, most likely to be small bowel given his recent upper and lower endoscopy for which no obvious source could be determined specifically after his polypectomy. PAST MEDICAL HISTORY: 1. History of pulmonary embolism in July 2019, bilateral submassive, at that time he had RV strain. 2. History of chronic AFib, on anticoagulation. 3. Peripheral vascular disease in April, on antiplatelets. 4. COPD, on chronic home O2. 5. GERD. 6. Hypertension. 7. Hyperlipidemia. 8. History of DVT on his right profunda femoris vein, which meet the classification of superficial deep vein thrombosis. 9. IVC Filter in August 2019 at [facility]. MEDICATIONS: His home medications reviewed with the family at bedside: 1. Amlodipine 5 mg daily. 2. Aspirin 81 daily. 3. Vitamin B12 1000 mcg daily. 4. Iron 325 daily. 5. Isosorbide 90 mg daily. 6. Toprol-XL 50 b.i.d. 7. Pantoprazole 40 b.i.d. 8. Potassium chloride 10 mEq daily. 9. Xarelto 15 b.i.d. began on 08/31/19. 10. Zocor 40 at bedtime. 11. Lasix 20 daily. 12. Prednisone 10 daily. 13. Albuterol inhaler with Atrovent combination. 14. Spiriva Respimat once daily. 15. Lorazepam 0.5 t.i.d. as needed. 16. Hydrocodone 7.5/325 as needed. ALLERGIES: He is allergic to SULFA. FAMILY HISTORY: Mother had breast cancer, also history of cardiac disease in the family. SOCIAL HISTORY: Quit smoking in summer of 2018; prior to that, he had 25 pack year. No alcohol or substance abuse. REVIEW OF SYSTEMS: No hemoptysis at this time. He had calvin blood and melena. PHYSICAL EXAMINATION GENERAL: He is awake, alert, oriented, pleasant, in no apparent cardiac distress, lying in bed, complaining of severe low back pain. VITAL SIGNS: Temperature 99.3, pulse 90, respiratory 15, satting 98%, pressure 149/76. HEENT: Head and Neck: Normocephalic, atraumatic. He does use nasal cannula. LUNGS: Good airflow. Fine expiratory wheezing. CARDIOVASCULAR: S1, S2. Irregularly irregular. ABDOMEN: Positive bowel sounds. Soft, nontender, nondistended. No rebound or guarding. EXTREMITIES: Moving upper and lower extremity with some limited range of motion secondary to low back pain. DIAGNOSTIC STUDIES: CBC; white count 7, hemoglobin 8.9, hematocrit 27, platelets 450. INR 2.09. Chemistry; sodium 137, potassium 4.2, BUN 30, creatinine 0.9, glucose 105. Calcium 8.5. AST 15, ALT 12. IMPRESSION AND PLAN: This is a 79-year-old male who came in for lower gastrointestinal bleed manifested with mixed majority melenic dark stool with minimal streak of calvin blood, most likely either upper and or small bowel bleed , on anticoagulation. 1. Gastrointestinal bleed, melena, most likely small bowel. We will place him on Protonix drip. GI consultation with Dr. Shi was notified. He recently had colonoscopy and esophagogastroduodenoscopy at [place]. I did request he had to obtain the records and the discharge summary. At this time, I am not sure if the patient will benefit from repeat endoscopy versus capsule endoscopy. I discussed the case with Dr. Shi and we will send out the case to GI on-call tomorrow on Sunday. We will type and screen. We will put him on H and H q.6 hours. Gentle IV fluids at 100 cc. 2. History of pulmonary embolism was diagnosed in July, large, required ICU stay. At this time, I am going to hold his Xarelto. He already had inferior vena cava filter. Further discussion with either Cardiac or Pulmonary to discuss the anticoagulation. I personally believe that the patient should not be discontinued off anticoagulation for at least 3 months giving the large of his pulmonary embolism that was present. His initial diagnosis of the pulmonary embolism was done on 08/06/19, so he is 1 month only with the anticoagulation. 3. Atrial fibrillation with chronic anticoagulation. Whether or not the patient will need long-term anticoagulation for his PE; we will defer that to cardiology input. May consider 1 antiplatelet therapy, which would probably be Plavix instead of aspirin, that will provide the coverage for his vascular stent in his lower extremity, which was done in April versus aspirin alone, which is more offending for his stomach lining. Continue his metoprolol. 4. History of chronic obstructive pulmonary disease. Continue his oxygen therapy. Continue his Spiriva and albuterol p.r.n. 5. Hypertension. We will hold amlodipine in light of gastrointestinal bleed, but we will continue his metoprolol and isosorbide. 6. Hyperlipidemia. Continue simvastatin. [id number]/[facility] #: [id number] [facility]
[2019-09-08 00:12] LABS: Hematocrit 25 % (42-52); Hemoglobin 8.5 g/dL (14.0-18.0)
[2019-09-08] MEDS: D5W 1/2 NS 1000 ML BAG* 1,000 ML IV SCH ×2 (05:23→16:07)
[2019-09-08] MEDS: Pantoprazole* 80 mg IN NS 80 MG/250 ML BAG IV SCH ×2 (05:23→18:03)
[2019-09-08 06:43] LABS: ABS Eosinophils 0.2 10^3/ul (0-0.6); ABS Lymphocytes 1.3 10^3/ul (1.0-4.8); ABS Monocytes 1.2 10^3/ul (0-0.8); ABS Neutrophils 3.7 10^3/ul (1.5-7.7); Eosinophil % 3.7 %; Hematocrit 26 % (42-52); Hemoglobin 8.3 g/dL (14.0-18.0); Lymphocyte % 19.6 %; Mean Corpuscular HGB Conc 32 g/dL (31-36); Mean Corpuscular Hemoglobin 28 pg (27-31); Mean Corpuscular Volume 88 fL (80-94); Mean Platelet Volume 6.8 fL (7.4-10.4); Platelet Count 416 10^3/uL (150-450); Red Blood Count 2.93 10^6 /uL (4.18-5.48); Red Cell Distribution Width 23 % (10-15); White Blood Count 6.5 10^3/uL (3.5-10.8)
[2019-09-08 06:57] LABS: BUN/Creatinine Ratio 28.6 (8-20); Calcium 8.3 mg/dL (8.6-10.3); EGFR African American 97.2 (>60); EGFR Non-African American 80.4 (>60); Magnesium 1.6 mg/dL (1.9-2.7); Phosphorus 3.4 mg/dL (2.5-5.0); Potassium 3.7 mmol/L (3.5-5.0)
[2019-09-08] MEDS ORDERED: Albuterol/Ipratropium NEB.SOL* Albuterol 2.5 MG/Ipratropium 0.5 MG 3 ML INH SCH ×2 (07:00→13:00)
[2019-09-08] MEDS: Tiotropium Brom/Olodaterol MDI INH SCH ×2 (08:02→19:30)
[2019-09-08] MEDS: Isosorbide Mononitrate ER TAB* 30 MG PO SCH (10:02)
[2019-09-08] MEDS: Potassium Chlor TAB* 10 MEQ TAB.ER PO SCH (10:03)
[2019-09-08] MEDS: Metoprolol Tartrate TAB* 50 mg PO SCH ×2 (10:03→20:46)
--- NOTE | 2019-09-08 12:37 | PN ---
Subjective Date of Service: 09/08/19 Interval History: No acute overnight events. Admitted yesterday. Pt kept NPO and pending GI consult today. Pt reports continued feelings of cold, tireness, and SOB. Denies bowel movement since yesterday when he experienced melena. Objective Active Medications: Hydrocodone Bitart/Acetaminophen ([place] 10/325 (Nf)) 1 tab PO Q6H PRN PRN Reason: PAIN - SEVERE Albuterol/Ipratropium (Duoneb (Albuterol 2.5 Mg/Ipratropium 0.5 Mg)) 1 neb INH [id number] AWAKE [facility] Atorvastatin Calcium (Lipitor*) 20 mg PO 1700 [facility] Pantoprazole Sodium (Protonix Iv Bag*) 80 mg in 250 mls @ 25 mls/hr IV Q10H [facility] Last Admin: 09/08/19 05:23 Dose: 25 mls/hr Dextrose/Sodium Chloride (D5w 1/2 Ns 1000 Ml Bag*) 1,000 mls @ 100 mls/hr IV PER RATE [facility] Stop: 09/09/19 19:59 Last Admin: 09/08/19 05:23 Dose: 100 mls/hr Isosorbide Mononitrate (Imdur Er Tab*) 90 mg PO DAILY [facility] Last Admin: 09/08/19 10:02 Dose: 90 mg Lorazepam (Ativan Tab(*)) 0.5 mg PO Q8H PRN PRN Reason: ANXIETY Metoprolol Tartrate (Lopressor Tab*) 50 mg PO BID [facility] Last Admin: 09/08/19 10:03 Dose: 50 mg Potassium Chloride (Klor Con Er Tab*) 10 meq PO DAILY [facility] Last Admin: 09/08/19 10:03 Dose: 10 meq Prednisone (Deltasone Tab*) 10 mg PO DAILY [facility] Last Admin: 09/08/19 10:03 Dose: 10 mg Tiotropium [place]/Olodaterol (Stiolto Respimat Inh [place] (60 Puff)) 1 puff INH BID [facility] Last Admin: 09/08/19 08:02 Dose: 1 puff Vital Signs - 8 hr 09/08/19 09/08/19 09/08/19 07:15 07:36 08:00 Temperature 97.7 F Pulse Rate 80 Respiratory 20 16 Rate Blood Pressure 147/55 (mmHg) O2 Sat by Pulse 98 98 Oximetry 09/08/19 09/08/19 08:14 11:51 Temperature 97.9 F Pulse Rate 78 72 Respiratory 14 14 Rate Blood Pressure 125/48 (mmHg) O2 Sat by Pulse 98 98 Oximetry Oxygen Devices in Use Now: Nasal Cannula Appearance: tired-appearing man in NAD Eyes: No Scleral Icterus Ears/Nose/Mouth/Throat: Clear Oropharnyx, Mucous Membranes Moist Cardiovascular: NL Sounds; No Murmurs; No JVD, - - irreg irreg Abdominal: NL Sounds; No Tenderness; No Distention, No Hepatosplenomegaly Extremities: No Edema Skin: - - pallor Neurological: Alert and Oriented x 3 Result Diagrams: 09/08/19 12:30 09/08/19 06:21 Microbiology and Other Data: Microbiology 09/07/19 17:35 Stool Occult Blood (MARI) - Final Stool Assess/Plan/Problems-Billing Assessment: 79M with afib and PE on Xarelto, COPD on home O2, HTN, GERD, PVD, and history of recent GIB, re-presents with rectal bleeding. Recent endoscopy negative, pending capsule. - Patient Problems (1) GI bleed Comment: EGD with gastritis and c-scope with polyps and AVM, diverticulosis, and hemorrhoids. - appreciate GI recs - plan for capsule study tomorrow - cont home pantoprazole PO bid (2) Atrial fibrillation Comment: - Continue metoprolol - holding anticoagulation in setting of bleed (3) Pulmonary embolism Comment: Recent submassive PE requiring ICU stay - holding AC in setting of acute bleed (4) COPD (chronic obstructive pulmonary disease) Comment: - cont home Spiriva, prednisone 10mg daily - cont nebs prn (5) HTN (hypertension) Comment: - hold home amlodipine in setting of bleed (6) CAD (coronary artery disease) Comment: - cont metoprolol, Imdur, atorvastatin - hold aspirin (7) DVT prophylaxis Comment: - scds, ambulate (8) Full code status Comment:
[2019-09-08 12:43] LABS: Hematocrit 24 % (42-52); Hemoglobin 8.1 g/dL (14.0-18.0)
[2019-09-08] MEDS ORDERED: PEG 3000 GI LAVAGE* 1 GALLON PO ONE (14:38)
--- NOTE | 2019-09-08 17:07 | CONS ---
CC: Dr. Shi; Mauricio Mann NP CONSULTATION REPORT: DATE OF CONSULT: 09/08/19 REQUESTING PHYSICIAN: Dr. Salgado. INDICATION: Hematochezia. HISTORY OF PRESENT ILLNESS: Mr. Sanchez is a pleasant 79-year-old gentleman who has a history of anemi a, hypokalemia, PE and DVT, atrial fibrillation, COPD, coronary artery disease, hypertension, who was recently discharged from the hospital at [facility] on 08/23/19. During that hospitalization, he did undergo both an EGD and a colonoscopy. The endoscopy showed gastritis. Colonoscopy revealed diony yps and AVM, diverticulosis, and hemorrhoids. He had an IVC filter placed on 08/24/19. He was starte d back on his Xarelto on 08/31/19, and he states that yesterday, he began to see dark red stools agai n. No abdominal pain. No nausea. No vomiting. He currently feels fine, but he is very fatigued. PAST MEDICAL HISTORY: Please see the HPI. Peripheral vascular disease. MEDICATIONS: Upon admission include: 1. Amlodipine 5 mg. 2. Aspirin 81 mg. 3. Iron 325. 4. Isosorbide 90 mg. 5. Toprol 50 twice a day. 6. Pantoprazole 40 twice a day. 7. Potassium chloride. 8. Xarelto 15 mg twice a day. 9. Zocor 40 mg. 10. Lasix. 11. Prednisone 10 mg. 12. Spiriva. 13. Lorazepam. 14. Hydrocodone. ALLERGIES: SULFA. FAMILY HISTORY: Significant for coronary artery disease and breast cancer. SOCIAL HISTORY: He quit smoking a few months ago. No alcohol use. REVIEW OF SYSTEMS: Twelve systems were reviewed, other than that mentioned in the HPI were unremarka ble. PHYSICAL EXAM: Temperature is 97.9, blood pressure is 125/48, pulse is 72, respiratory rate of 14. General: Well-appearing male, lying flat in bed, alert, oriented, pleasant, fluent. HEENT: Mucous membranes are moist without lesions, ulcers, or exudate. Neck is supple. Trachea is midline. Head is normocephalic, atraumatic. Heart: Irregular rate and rhythm. Lungs: Clear to auscultation bila terally. No wheezes, rales, or rhonchi. Abdomen: Positive bowel sounds, soft, obese, nontender, no ndistended. No hepatosplenomegaly, masses, rebound, or guarding. Skin is warm and dry. DIAGNOSTIC STUDIES/LAB DATA: Of note, hemoglobin is 8.1, down from 8.9; white count is 6.5; platelet s are 416. INR is 2.09. BUN went from 30 down to 26, creatinine is 0.91. ASSESSMENT AND PLAN: This is a pleasant 79-year-old gentleman with ongoing anemia. He recently had a n EGD and colonoscopy in the past few weeks. At this point, he continues to pass blood in his stools . He remains anemic. As has been discussed with him in the past what we need to do at this point is to perform a capsule endoscopy. We will make arrangements for it in the hospital, hopefully tomorro w. He will need to be on clear liquids today from Sunday and then consume 2 gallons of GoLYTELY tonig ht and hopefully we can do a capsule endoscopy tomorrow. [id number]/[facility] #: [id number]
[2019-09-08] MEDS ORDERED: Magnesium Sulfate 2 GM IV* 2 GM/50 ML BAG IVPB ONE (18:19)
[2019-09-08] MEDS: Atorvastatin* 20 MG TAB PO SCH (19:33)
[2019-09-08] MEDS: Albuterol/Ipratropium NEB.SOL* Albuterol 2.5 MG/Ipratropium 0.5 MG 3 ML INH PRN (19:34)
[2019-09-08] MEDS: Pantoprazole TAB * 40 MG TAB PO SCH (20:46)
[2019-09-09 06:28] LABS: Hematocrit 23 % (42-52); Hemoglobin 7.3 g/dL (14.0-18.0); Mean Corpuscular HGB Conc 32 g/dL (31-36); Mean Corpuscular Hemoglobin 28 pg (27-31); Mean Corpuscular Volume 88 fL (80-94); Mean Platelet Volume 6.7 fL (7.4-10.4); Platelet Count 420 10^3/uL (150-450); Red Blood Count 2.59 10^6 /uL (4.18-5.48); Red Cell Distribution Width 23 % (10-15); White Blood Count 5.9 10^3/uL (3.5-10.8)
[2019-09-09 06:46] LABS: BUN/Creatinine Ratio 18.5 (8-20); Calcium 8.3 mg/dL (8.6-10.3); EGFR African American 111.2 (>60); EGFR Non-African American 91.9 (>60); Magnesium 1.9 mg/dL (1.9-2.7); Potassium 3.4 mmol/L (3.5-5.0)
--- NOTE | 2019-09-09 08:59 | PN ---
Subjective Date of Service: 09/09/19 Interval History: No acute overnight events. Had one brief episode of sharp chest pain that resolved spontaneously. No EKG changes. Had one dark tarry BM yesterday. Drank GI prep yesterday evening to prepare for capsule today. Hgb decreased 8.1 -> 7.3 Feels mildly SOB, cold, and weak, which has been his baseline since GI bleeding started. Reports SOB even before anemia, as he has chronic COPD and is deconditioned. Objective Active Medications: Hydrocodone Bitart/Acetaminophen ([place] 10/325 (Nf)) 1 tab PO Q6H PRN PRN Reason: PAIN - SEVERE Albuterol/Ipratropium (Duoneb (Albuterol 2.5 Mg/Ipratropium 0.5 Mg)) 1 neb INH [id number] AWAKE PRN PRN Reason: sob/wheeze Last Admin: 09/08/19 19:34 Dose: 1 neb Atorvastatin Calcium (Lipitor*) 20 mg PO 1700 [facility] Last Admin: 09/08/19 19:33 Dose: 20 mg Isosorbide Mononitrate (Imdur Er Tab*) 90 mg PO DAILY [facility] Last Admin: 09/08/19 10:02 Dose: 90 mg Lorazepam (Ativan Tab(*)) 0.5 mg PO Q8H PRN PRN Reason: ANXIETY Metoprolol Tartrate (Lopressor Tab*) 50 mg PO BID [facility] Last Admin: 09/08/19 20:46 Dose: 50 mg Pantoprazole Sodium (Protonix Tab*) 40 mg PO BID [facility] Last Admin: 09/08/19 20:46 Dose: 40 mg Potassium Chloride (Klor Con Er Tab*) 10 meq PO DAILY [facility] Last Admin: 09/08/19 10:03 Dose: 10 meq Prednisone (Deltasone Tab*) 10 mg PO DAILY [facility] Last Admin: 09/08/19 10:03 Dose: 10 mg Tiotropium [place]/Olodaterol (Stiolto Respimat Inh [place] (60 Puff)) 1 puff INH BID [facility] Last Admin: 09/08/19 19:30 Dose: 1 puff Vital Signs - 8 hr 09/09/19 03:22 Temperature 97.4 F Pulse Rate 77 Respiratory 24 Rate Blood Pressure 110/41 (mmHg) O2 Sat by Pulse 99 Oximetry Oxygen Devices in Use Now: Nasal Cannula Appearance: chronically ill-appearing frail man in no acute distress Ears/Nose/Mouth/Throat: Clear Oropharnyx, Mucous Membranes Moist Neck: NL Appearance and Movements; NL JVP, Trachea Midline Respiratory: Symmetrical Chest Expansion and Respiratory Effort, Clear to Auscultation Cardiovascular: NL Sounds; No Murmurs; No JVD, - - irreg irreg Abdominal: NL Sounds; No Tenderness; No Distention, No Hepatosplenomegaly Skin: - - +pallor Result Diagrams: 09/09/19 12:12 09/09/19 05:57 Microbiology and Other Data: Microbiology 09/07/19 17:35 Stool Occult Blood (MARI) - Final Stool Assess/Plan/Problems-Billing Assessment: 79M with afib and PE on Xarelto, COPD on home O2, HTN, GERD, PVD, and history of recent GIB, re-presents with rectal bleeding. Recent endoscopy negative, pending capsule. - Patient Problems (1) GI bleed Comment: EGD with gastritis and c-scope with polyps and AVM, diverticulosis, and hemorrhoids. - appreciate GI recs - pending capsule read - cont home pantoprazole PO bid (2) Pulmonary embolism Comment: Recent submassive PE requiring ICU stay - holding AC in setting of acute bleed, pending consult from heme for risk/ benefit assessment regarding restart, may do trial of AC while admitted if capsule is negative (3) Atrial fibrillation Comment: - Continue metoprolol - holding anticoagulation in setting of bleed (4) COPD (chronic obstructive pulmonary disease) Comment: - cont home Spiriva, prednisone 10mg daily - cont nebs prn (5) HTN (hypertension) Comment: - hold home amlodipine in setting of bleed (6) CAD (coronary artery disease) Comment: - cont metoprolol, Imdur, atorvastatin - hold aspirin (7) DVT prophylaxis Comment: - scds, ambulate (8) Full code status Comment:
[2019-09-09] MEDS: KCL 20 MEQ/100 ML IVPREMIX* 20 MEQ/100 ML BAG IV SCH ×2 (10:08→14:00)
[2019-09-09] MEDS: Tiotropium Brom/Olodaterol MDI INH SCH ×2 (10:18→19:14)
[2019-09-09] MEDS: Albuterol/Ipratropium NEB.SOL* Albuterol 2.5 MG/Ipratropium 0.5 MG 3 ML INH PRN (10:20)
[2019-09-09] MEDS: Pantoprazole TAB * 40 MG TAB PO SCH ×2 (11:43→22:28)
[2019-09-09] MEDS: Potassium Chlor TAB* 10 MEQ TAB.ER PO SCH (11:43)
[2019-09-09 12:20] LABS: Hematocrit 22 % (42-52); Hemoglobin 7.4 g/dL (14.0-18.0); Mean Corpuscular HGB Conc 34 g/dL (31-36); Mean Corpuscular Hemoglobin 29 pg (27-31); Mean Corpuscular Volume 85 fL (80-94); Mean Platelet Volume 6.4 fL (7.4-10.4); Platelet Count 419 10^3/uL (150-450); Red Blood Count 2.58 10^6 /uL (4.18-5.48); Red Cell Distribution Width 22 % (10-15)
[2019-09-09] MEDS: Metoprolol Tartrate TAB* 50 mg PO SCH ×3 (13:35→22:28)
[2019-09-09] MEDS: Isosorbide Mononitrate ER TAB* 30 MG PO SCH ×2 (13:35→14:00)
[2019-09-09] MEDS: Atorvastatin* 20 MG TAB PO SCH (17:40)
[2019-09-09] MEDS: Albuterol/Ipratropium NEB.SOL* Albuterol 2.5 MG/Ipratropium 0.5 MG 3 ML INH SCH (19:15)
--- NOTE | 2019-09-09 20:51 | PN ---
Progress Note - Progress Note Date of Service: 09/09/19 Note: BRIEF GI NOTE Spoke with Dr Salgado from primary team. H/H stable today. No ongoing melena today. Video capsule swallowed today. Will read study tomorrow (09/10) to evaluate for small bowel source of GI bleeding. Depending on findings and clinical condition, we will discuss potential re-trial of anticoagulation ( given sub-massive PE diagnosed in 07/2019) while in monitored setting. Magnolia Martinez MD Gastroenterology
[2019-09-10] MEDS: Albuterol/Ipratropium NEB.SOL* Albuterol 2.5 MG/Ipratropium 0.5 MG 3 ML INH SCH ×2 (07:03→19:32)
[2019-09-10] MEDS: Tiotropium Brom/Olodaterol MDI INH SCH ×2 (07:03→19:31)
[2019-09-10 07:08] LABS: Hematocrit 21 % (42-52); Hemoglobin 6.8 g/dL (14.0-18.0); Mean Corpuscular HGB Conc 33 g/dL (31-36); Mean Corpuscular Hemoglobin 29 pg (27-31); Mean Corpuscular Volume 86 fL (80-94); Mean Platelet Volume 6.8 fL (7.4-10.4); Platelet Count 367 10^3/uL (150-450); Red Blood Count 2.39 10^6 /uL (4.18-5.48); Red Cell Distribution Width 23 % (10-15); White Blood Count 5.3 10^3/uL (3.5-10.8)
[2019-09-10 07:30] LABS: Anion Gap 4 mmol/L (2-11); BUN/Creatinine Ratio 15.9 (8-20); Blood Urea Nitrogen 14 mg/dL (6-24); CO2 Carbon Dioxide 26 mmol/L (22-32); Calcium 8.3 mg/dL (8.6-10.3); Chloride 110 mmol/L (101-111); EGFR African American 101.1 (>60); EGFR Non-African American 83.5 (>60); Glucose 89 mg/dL (70-100); Magnesium 1.8 mg/dL (1.9-2.7); Potassium 3.9 mmol/L (3.5-5.0); Sodium 140 mmol/L (135-145)
[2019-09-10 07:36] LABS: Troponin I 0.25 ng/mL (<0.03)
--- NOTE | 2019-09-10 08:24 | PN ---
Subjective Date of Service: 09/10/19 Interval History: No acute events overnight. Had capsule endoscopy yesterday and pending read today. No bloody BM in 1 day, however Hgb now < 7. Troponin drawn to gauge burden of PE on right heart. Last visit, troponin peak was 2.2, and was 1.11 on discharge. Now troponin is 0.25 and patient is without chest pain or ischemic EKG changes. Has RVH per EKG. Patient reports feeling significantly better, compared to yesterday. Less weak, less SOB. Objective Active Medications: Hydrocodone Bitart/Acetaminophen ([place] 10/325 (Nf)) 1 tab PO Q6H PRN PRN Reason: PAIN - SEVERE Albuterol/Ipratropium (Duoneb (Albuterol 2.5 Mg/Ipratropium 0.5 Mg)) 1 neb INH BID [facility] Last Admin: 09/10/19 07:03 Dose: 1 neb Atorvastatin Calcium (Lipitor*) 20 mg PO 1700 [facility] Last Admin: 09/09/19 17:40 Dose: 20 mg Magnesium Sulfate/Dextrose (Magnesium Sulfate 1 Gm Iv*) 1 gm in 100 mls @ 200 mls/hr IV ONCE ONE Stop: 09/10/19 08:47 Isosorbide Mononitrate (Imdur Er Tab*) 90 mg PO 0900 [facility] Last Admin: 09/09/19 14:00 Dose: 90 mg Lorazepam (Ativan Tab(*)) 0.5 mg PO Q8H PRN PRN Reason: ANXIETY Metoprolol Tartrate (Lopressor Tab*) 50 mg PO BID@0900,2100 [facility] Last Admin: 09/09/19 22:28 Dose: 50 mg Pantoprazole Sodium (Protonix Tab*) 40 mg PO BID [facility] Last Admin: 09/09/19 22:28 Dose: 40 mg Potassium Chloride (Klor Con Er Tab*) 10 meq PO DAILY [facility] Last Admin: 09/09/19 11:43 Dose: Not Given Prednisone (Deltasone Tab*) 10 mg PO DAILY [facility] Last Admin: 09/09/19 14:00 Dose: 10 mg Tiotropium [place]/Olodaterol (Stiolto Respimat Inh [place] (60 Puff)) 1 puff INH BID [facility] Last Admin: 09/10/19 07:03 Dose: 1 puff Vital Signs - 8 hr 09/10/19 09/10/19 03:45 07:08 Temperature 97.8 F Pulse Rate 78 74 Respiratory 18 16 Rate Blood Pressure 106/49 (mmHg) O2 Sat by Pulse 96 94 Oximetry Oxygen Devices in Use Now: Nasal Cannula Appearance: frail appearing elderly man in NAD, better spirits today Eyes: No Scleral Icterus Ears/Nose/Mouth/Throat: Clear Oropharnyx, Mucous Membranes Moist Neck: NL Appearance and Movements; NL JVP, Trachea Midline Respiratory: Symmetrical Chest Expansion and Respiratory Effort, Clear to Auscultation Cardiovascular: - - irreg irreg, no murmur Abdominal: NL Sounds; No Tenderness; No Distention, No Hepatosplenomegaly Extremities: No Edema Skin: No Rash or Ulcers Neurological: Alert and Oriented x 3 Result Diagrams: 09/10/19 06:11 09/10/19 06:11 Microbiology and Other Data: Microbiology 09/07/19 17:35 Stool Occult Blood (MARI) - Final Stool Assess/Plan/Problems-Billing Assessment: 79M with afib and PE on Xarelto, COPD on home O2, HTN, GERD, PVD, and history of recent GIB, re-presents with rectal bleeding. Recent endoscopy negative, pending capsule. - Patient Problems (1) GI bleed Comment: EGD with gastritis and c-scope with polyps and AVM, diverticulosis, and hemorrhoids. - appreciate GI recs - pending capsule read - cont home pantoprazole PO bid (2) Pulmonary embolism Comment: Recent submassive PE requiring ICU stay - holding AC in setting of acute bleed, pending consult from heme for risk/ benefit assessment regarding restart, may do trial of AC while admitted if capsule is negative (3) Atrial fibrillation Comment: - Continue metoprolol - holding anticoagulation in setting of bleed (4) COPD (chronic obstructive pulmonary disease) Comment: - cont home Spiriva, prednisone 10mg daily - cont nebs prn (5) HTN (hypertension) Comment: - hold home amlodipine in setting of bleed (6) CAD (coronary artery disease) Comment: - cont metoprolol, Imdur, atorvastatin - hold aspirin (7) DVT prophylaxis Comment: - scds, ambulate (8) Full code status Comment:
[2019-09-10] MEDS ORDERED: Magnesium Sulfate 1 GM IV* 1 GM/100 ML BAG IV ONE (09:00)
[2019-09-10] MEDS: Isosorbide Mononitrate ER TAB* 30 MG PO SCH (10:16)
[2019-09-10] MEDS: Potassium Chlor TAB* 10 MEQ TAB.ER PO SCH (10:17)
[2019-09-10] MEDS: Metoprolol Tartrate TAB* 50 mg PO SCH ×2 (10:17→20:22)
[2019-09-10] MEDS: Pantoprazole TAB * 40 MG TAB PO SCH ×2 (10:17→20:22)
[2019-09-10] MEDS: Hydrocodone/Acetamin 10/325 1 TAB PO PRN ×2 (10:21→17:10)
[2019-09-10 13:43] LABS: Hematocrit for Retic CNT 22 % (42-52); Immature Retic Fraction 0.66; RBC Retic Count 2.46 10^6/uL (4.18-5.48)
[2019-09-10 13:44] LABS: Corrected Retic Count 1.3 % (0.5-1.5)
[2019-09-10 13:57] LABS: LDH 183 U/L (140-271); Total Iron Binding Capacity 210 mcg/dL (250-450); Transferrin 150 mg/dL (203-362)
[2019-09-10 14:01] LABS: % Iron Saturation 10 % (15-55); Iron < 20 ug/dL (50-212)
[2019-09-10 14:16] LABS: Ferritin 64.8 ng/mL (24-336)
[2019-09-10 15:32] LABS: Hematocrit 27 % (42-52); Hemoglobin 8.9 g/dL (14.0-18.0); Mean Corpuscular HGB Conc 33 g/dL (31-36); Mean Corpuscular Hemoglobin 30 pg (27-31); Mean Corpuscular Volume 89 fL (80-94); Mean Platelet Volume 6.7 fL (7.4-10.4); Platelet Count 426 10^3/uL (150-450); Red Cell Distribution Width 22 % (10-15); White Blood Count 6.2 10^3/uL (3.5-10.8)
[2019-09-10] MEDS ORDERED: Ferric Gluconate IV* 125 MG in NS 0.9% 100 ML* 100 ML IVPB ONE (17:00)
[2019-09-10] MEDS: Atorvastatin* 20 MG TAB PO SCH (17:11)
--- NOTE | 2019-09-10 18:21 | PN ---
Progress Note - Progress Note Date of Service: 09/10/19 Note: BRIEF GI NOTE Spoke with primary team hospitalist, Dr Salgado. Patient's Hgb dropped from 7.4 to 6.8. No melena or hematochezia. Received 1 unit of blood. Follow-up Hgb is 8.9 post-transfusion, which is a larger bump than would be expected with one unit. Raises possibility that the 6.8 lab is spurious. Video capsule endoscopy reviewed. Adequate small bowel views. No fresh or old blood. No source of bleeding seen on exam. Capsule passed into colon where dark liquid was seen. May represent old blood. - Continue to monitor CBC to help clarify trend of H/H - Recommend evaluation for additional possible contributors to anemia (ie: iron studies, hemolysis labs, retic count, etc) given drop in H/H w/o overt GI bleeding and negative VCE. - If H/H remains stable w/o overt bleeding, then we could consider anticoagulation trial in monitored setting given sub-massive PE in 07/2019. If evidence of recurrent bleeding on anticoagulation, then a repeat VCE could be performed. - Can restart diet as no procedures planned at this time. GI will continue to follow. Magnolia Martinez MD Gastroenterology
[2019-09-11 06:20] LABS: Hematocrit 25 % (42-52); Hemoglobin 8.3 g/dL (14.0-18.0); Mean Corpuscular HGB Conc 34 g/dL (31-36); Mean Corpuscular Hemoglobin 30 pg (27-31); Mean Corpuscular Volume 88 fL (80-94); Mean Platelet Volume 6.6 fL (7.4-10.4); Platelet Count 371 10^3/uL (150-450); Red Cell Distribution Width 21 % (10-15); White Blood Count 8.6 10^3/uL (3.5-10.8)
[2019-09-11 06:41] LABS: BUN/Creatinine Ratio 14.9 (8-20); Calcium 8.4 mg/dL (8.6-10.3); EGFR African American 102.4 (>60); EGFR Non-African American 84.6 (>60); Magnesium 1.7 mg/dL (1.9-2.7); Potassium 3.8 mmol/L (3.5-5.0)
[2019-09-11] MEDS: Albuterol/Ipratropium NEB.SOL* Albuterol 2.5 MG/Ipratropium 0.5 MG 3 ML INH SCH ×2 (07:34→19:25)
[2019-09-11] MEDS: Tiotropium Brom/Olodaterol MDI INH SCH ×2 (07:34→19:26)
[2019-09-11] MEDS: Isosorbide Mononitrate ER TAB* 30 MG PO SCH (09:01)
[2019-09-11] MEDS: Pantoprazole TAB * 40 MG TAB PO SCH ×2 (09:01→20:03)
[2019-09-11] MEDS: Metoprolol Tartrate TAB* 50 mg PO SCH ×2 (09:01→20:03)
[2019-09-11] MEDS: Potassium Chlor TAB* 10 MEQ TAB.ER PO SCH (09:02)
--- NOTE | 2019-09-11 09:22 | PN ---
Subjective Date of Service: 09/11/19 Interval History: No acute events overnight. Transfused yesterday, 1 u pRBC, with appropriate response. Pt in better spirits. Noted to have iron def anemia, no evidence for other micronutrient deficiencies or hemolysis. Started on IV iron. As capsule endoscopy was negative, GI and Heme recommending to start trial of anticoagulation while admitted, with serial CBC monitoring. Can go home on AC if not bleed for 48 hours. Objective Active Medications: Hydrocodone Bitart/Acetaminophen ([place] 10/325 (Nf)) 1 tab PO Q6H PRN PRN Reason: PAIN - SEVERE Last Admin: 09/10/19 17:10 Dose: 1 tab Albuterol/Ipratropium (Duoneb (Albuterol 2.5 Mg/Ipratropium 0.5 Mg)) 1 neb INH BID [facility] Last Admin: 09/11/19 07:34 Dose: 1 neb Atorvastatin Calcium (Lipitor*) 20 mg PO 1700 [facility] Last Admin: 09/10/19 17:11 Dose: 20 mg Isosorbide Mononitrate (Imdur Er Tab*) 90 mg PO 0900 [facility] Last Admin: 09/11/19 09:01 Dose: 90 mg Lorazepam (Ativan Tab(*)) 0.5 mg PO Q8H PRN PRN Reason: ANXIETY Metoprolol Tartrate (Lopressor Tab*) 50 mg PO BID@0900,2100 [facility] Last Admin: 09/11/19 09:01 Dose: 50 mg Pantoprazole Sodium (Protonix Tab*) 40 mg PO BID [facility] Last Admin: 09/11/19 09:01 Dose: 40 mg Potassium Chloride (Klor Con Er Tab*) 10 meq PO DAILY [facility] Last Admin: 09/11/19 09:02 Dose: 10 meq Prednisone (Deltasone Tab*) 10 mg PO DAILY [facility] Last Admin: 09/11/19 09:01 Dose: 10 mg Tiotropium [place]/Olodaterol (Stiolto Respimat Inh [place] (60 Puff)) 1 puff INH BID [facility] Last Admin: 09/11/19 07:34 Dose: 1 puff Vital Signs - 8 hr 09/11/19 09/11/19 09/11/19 03:56 07:15 07:43 Temperature 97.8 F 97.9 F Pulse Rate 72 85 100 Respiratory 19 15 15 Rate Blood Pressure 126/55 123/66 (mmHg) O2 Sat by Pulse 93 96 98 Oximetry 09/11/19 08:00 Temperature Pulse Rate Respiratory 15 Rate Blood Pressure (mmHg) O2 Sat by Pulse 98 Oximetry Oxygen Devices in Use Now: Nasal Cannula Appearance: chronically frail elderly man Respiratory: Symmetrical Chest Expansion and Respiratory Effort, Clear to Auscultation Cardiovascular: - - irreg irreg Abdominal: NL Sounds; No Tenderness; No Distention, No Hepatosplenomegaly Extremities: No Edema Neurological: Alert and Oriented x 3 Result Diagrams: 09/11/19 06:11 09/11/19 06:11 Microbiology and Other Data: Microbiology 09/07/19 17:35 Stool Occult Blood (MARI) - Final Stool Assess/Plan/Problems-Billing Assessment: 79M with afib and PE on Xarelto, COPD on home O2, HTN, GERD, PVD, and history of recent GIB, re-presents with rectal bleeding. Recent endoscopy negative, capsule negative. - Patient Problems (1) GI bleed Comment: EGD with gastritis and c-scope with polyps and AVM, diverticulosis, and hemorrhoids. Capsule without etiology. - cont home pantoprazole PO bid - will trial on heparin gtt and monitor closely for bleed - can DC Sunday morning on AC if without recurrance (2) Pulmonary embolism Comment: Recent submassive PE requiring ICU stay - appreciate Dr. Viviana caban - trialing heparin gtt, starting morning of 09/11, can DC on AC if no bleed in 48 hours (3) Atrial fibrillation Comment: - Continue metoprolol - restarting heparin gtt as above (4) COPD (chronic obstructive pulmonary disease) Comment: - cont home Spiriva, prednisone 10mg daily - cont nebs prn (5) HTN (hypertension) Comment: - hold home amlodipine, BPs normal (6) CAD (coronary artery disease) Comment: - cont metoprolol, Imdur, atorvastatin - hold aspirin (7) Anemia Comment: acute GI loss on background of anemia history on record. Labs with iron def. - give IV iron while admitted - trialing on heparin gtt, will monitor for further bleed (8) DVT prophylaxis Comment: - scds, ambulate (9) Full code status Comment:
[2019-09-11] MEDS ORDERED: Magnesium Sulfate 1 GM IV* 1 GM/100 ML BAG IV ONE (10:00)
[2019-09-11] MEDS: Heparin VIAL(*) 5000 UNITS/ML VIAL (FIVE THOUSAND) IV SCH (12:12)
[2019-09-11] MEDS: Heparin DRIP 25,000 UNITS(*) 25,000 UNITS/500 ML BAG IV SCH (12:13)
[2019-09-11] MEDS: Atorvastatin* 20 MG TAB PO SCH (16:53)
[2019-09-11] MEDS: Ferric Gluconate IV* 125 MG in NS 0.9% 100 ML* 100 ML IVPB SCH (17:47)
--- NOTE | 2019-09-11 21:35 | PRO ---
PROCEDURE REPORT: DATE OF PROCEDURE: 09/09/19 PROCEDURE: Video capsule endoscopy. PRIMARY GEOPHYSICS PROFESSOR: Dr. Shi. INDICATION: The patient is hospitalized with acute on chronic anemia and melena concerning for GI bleeding. Scheduled for video capsule endoscopy to assess for small bowel source of bleeding. MEDICATIONS GIVEN: None. DESCRIPTION OF PROCEDURE: Capsule endoscopy consent was reviewed with the patient including risks, benefits, and alternatives. Informed and written consent was then obtained. The patient swallowed the capsule. The recorder was picked up from the patient's inpatient room and images were reviewed. First gastric image occurred at 00:11:35. First duodenal image 00:34:46. Gastric passage time 0 hour 23 minutes. First cecal image occurred around 06:56:22. Small bowel passage time 6 hour 21 minutes. FINDINGS: Preparation was fair to good with [id number] amount of retained debris and bubbles seen throughout the small bowel. This level of prep can limit the sensitivity of the study. Gastric views were limited. No acute findings. Small bowel images were satisfactory. The villi were normal in height without endoscopic features or celiac disease. No polyps or masses. No AVMs. No diverticulosis appreciated. No fresh blood seen on exam. No erosions, ulcers, or evidence of Crohn's disease present. The camera appeared to pass into the ileocecal area at approximately 6 hours and 56 minutes. In this area, there was some dark colored fluid suggestive of possible diluted old blood. No fresh blood seen in this area. No suspicious lesion(s) seen. Colonic images were limited due to debris and stool. IMPRESSION: 1. Complete capsule endoscopy. 2. No explanation for patient's symptoms GI bleeding seen on this exam. No fresh blood. Possible dilute old blood seen in the ileocecal/cecum. This finding raises some concern for bleeding having been localized in area of recent colon polypectomy as opposed to small bowel source. FOLLOWUP: 1. Continue to monitor CBC. 2. If CBC is stable without any evidence of overt bleeding, then I would strongly consider restarting anticoagulation while in the hospital with close monitoring to determine if bleeding will return. Would consider heparin drip for this purpose as this could be quickly discontinued. If bleeding occurs again, then I would consider repeat colonoscopy to reassess the cecal area as large polyp was removed earlier in the month in this area. Thank you very much for this consult. GI will continue to follow. [id number]/CPS #: [id number] MTDD
[2019-09-12 04:03] LABS: Hematocrit 24 % (42-52); Mean Corpuscular HGB Conc 34 g/dL (31-36); Mean Corpuscular Hemoglobin 30 pg (27-31); Mean Corpuscular Volume 87 fL (80-94); Mean Platelet Volume 6.5 fL (7.4-10.4); Platelet Count 396 10^3/uL (150-450); Red Blood Count 2.71 10^6 /uL (4.18-5.48); Red Cell Distribution Width 22 % (10-15); White Blood Count 9.8 10^3/uL (3.5-10.8)
[2019-09-12 04:05] LABS: ABS Basophils 0.1 10^3/ul (0-0.2); ABS Eosinophils 0.1 10^3/ul (0-0.6); ABS Lymphocytes 1.8 10^3/ul (1.0-4.8); ABS Neutrophils 5.8 10^3/ul (1.5-7.7); Lymphocyte % 18.1 %; Nucleated Red Blood Cells % 0.1
[2019-09-12 04:19] LABS: BUN/Creatinine Ratio 11.1 (8-20); Calcium 8.2 mg/dL (8.6-10.3); EGFR African American 98.5 (>60); EGFR Non-African American 81.4 (>60); Magnesium 1.6 mg/dL (1.9-2.7); Potassium 3.6 mmol/L (3.5-5.0)
[2019-09-12 04:39] LABS: Activated Partial Thrombo Time 157.8 seconds (26.0-38.0)
[2019-09-12 05:08] LABS: Ferritin 260.5 ng/mL (24-336)
[2019-09-12] MEDS: Albuterol/Ipratropium NEB.SOL* Albuterol 2.5 MG/Ipratropium 0.5 MG 3 ML INH SCH ×2 (07:39→19:18)
[2019-09-12] MEDS: Tiotropium Brom/Olodaterol MDI INH SCH ×2 (07:39→19:19)
[2019-09-12] MEDS: Pantoprazole TAB * 40 MG TAB PO SCH ×2 (08:08→21:27)
[2019-09-12] MEDS: Hydrocodone/Acetamin 10/325 1 TAB PO PRN (08:08)
[2019-09-12] MEDS: Potassium Chlor TAB* 10 MEQ TAB.ER PO SCH (08:08)
[2019-09-12] MEDS: Isosorbide Mononitrate ER TAB* 30 MG PO SCH (08:08)
[2019-09-12] MEDS: Metoprolol Tartrate TAB* 50 mg PO SCH ×2 (08:08→21:27)
--- NOTE | 2019-09-12 10:17 | PN ---
Subjective Date of Service: 09/12/19 Interval History: No acute overnight events. Pt has been on heparin drip for 24 hours without recurrence of GI bleed. No BM in 24 hours. Hgb stable. Heme recommending warfarin, as this has lower GI bleed risk than DOACs. Will initiate first dose today. Patient in good spirits. Reports improvments in weakness, dyspnea, and feeling cold. Objective Active Medications: Hydrocodone Bitart/Acetaminophen ([place] 10/325 (Nf)) 1 tab PO Q6H PRN PRN Reason: PAIN - SEVERE Last Admin: 09/12/19 08:08 Dose: 1 tab Albuterol/Ipratropium (Duoneb (Albuterol 2.5 Mg/Ipratropium 0.5 Mg)) 1 neb INH BID [facility] Last Admin: 09/12/19 07:39 Dose: 1 neb Atorvastatin Calcium (Lipitor*) 20 mg PO 1700 [facility] Last Admin: 09/11/19 16:53 Dose: 20 mg Guaifenesin (Mucinex*) 600 mg PO BID [facility] Heparin Sodium (Porcine) (Heparin Vial(*)) 0 units IV .PER PROTOCOL [facility] Last Admin: 09/11/19 12:12 Dose: 5,200 units Heparin Sodium/Dextrose (Heparin Drip 25,000 Units(*)) 25,000 units in 500 mls @ 0 mls/hr IV PER RATE [facility]; Protocol Last Admin: 09/11/19 12:13 Dose: 25 mls/hr Ferric Sodium Gluconate Complex 125 mg/ Sodium Chloride 110 mls @ 110 mls/hr IVPB DAILY@1700 [facility] Last Admin: 09/11/19 17:47 Dose: 110 mls/hr Isosorbide Mononitrate (Imdur Er Tab*) 90 mg PO 0900 [facility] Last Admin: 09/12/19 08:08 Dose: 90 mg Lorazepam (Ativan Tab(*)) 0.5 mg PO Q8H PRN PRN Reason: ANXIETY Metoprolol Tartrate (Lopressor Tab*) 50 mg PO BID@0900,2100 [facility] Last Admin: 09/12/19 08:08 Dose: 50 mg Pantoprazole Sodium (Protonix Tab*) 40 mg PO BID [facility] Last Admin: 09/12/19 08:08 Dose: 40 mg Pharmacy Profile Note (Coumadin Per Pharmacy*) 1 note FOLLOW UP .PER PHARMACY PROTOC [facility]; Protocol Potassium Chloride (Klor Con Er Tab*) 10 meq PO DAILY [facility] Last Admin: 09/12/19 08:08 Dose: 10 meq Prednisone (Deltasone Tab*) 10 mg PO DAILY [facility] Last Admin: 09/12/19 08:08 Dose: 10 mg Tiotropium [place]/Olodaterol (Stiolto Respimat Inh [place] (60 Puff)) 1 puff INH BID [facility] Last Admin: 09/12/19 07:39 Dose: 1 puff Vital Signs - 8 hr 09/12/19 09/12/19 09/12/19 03:15 07:41 08:08 Temperature 98.0 F Pulse Rate 85 91 Respiratory 14 18 16 Rate Blood Pressure 131/65 (mmHg) O2 Sat by Pulse 96 98 Oximetry Oxygen Devices in Use Now: Nasal Cannula Appearance: pale elderly man in NAD, frail, pleasant and interactive Eyes: No Scleral Icterus Ears/Nose/Mouth/Throat: Clear Oropharnyx, Mucous Membranes Moist Neck: NL Appearance and Movements; NL JVP, Trachea Midline Respiratory: Symmetrical Chest Expansion and Respiratory Effort, Clear to Auscultation Cardiovascular: - - irreg irreg, no mgr Abdominal: NL Sounds; No Tenderness; No Distention, No Hepatosplenomegaly Extremities: No Edema Skin: No Rash or Ulcers Neurological: Alert and Oriented x 3 Result Diagrams: 09/12/19 03:57 09/12/19 03:57 Microbiology and Other Data: Microbiology 09/07/19 17:35 Stool Occult Blood (MARI) - Final Stool Assess/Plan/Problems-Billing Assessment: 79M with afib and PE on Xarelto, COPD on home O2, HTN, GERD, PVD, and history of recent GIB, re-presents with rectal bleeding. Recent endoscopy negative, capsule negative. - Patient Problems (1) GI bleed Comment: EGD with gastritis and c-scope with polyps and AVM, diverticulosis, and hemorrhoids. Capsule without etiology. GI thinks bleed was due to polyp removal at [facility]. - cont home pantoprazole PO bid - trial on heparin gtt and monitor closely for bleed - can DC on warfarin, which has lower GI bleed risk (2) Pulmonary embolism Comment: Recent submassive PE requiring ICU stay - appreciate Dr. Viviana caban - trialing heparin gtt, starting morning of 09/11, can DC on warfarin if no bleed in 48 hours (3) Atrial fibrillation Comment: - Continue metoprolol - restarting heparin gtt as above (4) COPD (chronic obstructive pulmonary disease) Comment: - cont home Spiriva, prednisone 10mg daily - cont nebs prn (5) HTN (hypertension) Comment: - hold home amlodipine, BPs normal (6) CAD (coronary artery disease) Comment: - cont metoprolol, Imdur, atorvastatin - hold aspirin (7) Anemia Comment: acute GI loss on background of anemia history on record. Labs with iron def. - give IV iron while admitted - trialing on heparin gtt, will monitor for further bleed (8) DVT prophylaxis Comment: - scds, ambulate (9) Full code status Comment:
[2019-09-12 11:45] LABS: INR 1.21 (0.82-1.09)
--- NOTE | 2019-09-12 15:31 | PN ---
Progress Note - Progress Note Date of Service: 09/12/19 Note: BRIEF GI NOTE Spoke with Dr Salgado. Patient doing well on heparin gtt. No recurrent GI bleeding. - Heparin gtt to continue. Restarted on Coumadin per hematology. - Please contact GI team if any evidence of recurrence bleeding. Would consider colonoscopy in that case given recent polypectomy in R colon (and VCE w/o findings to suggest small bowel source of bldg). - Patient to follow-up in GI clinic with Dr Shi. Magnolia Martinez MD Gastroenterology
[2019-09-12] MEDS ORDERED: Magnesium Sulfate 2 GM IV* 2 GM/50 ML BAG IVPB ONE (16:26)
[2019-09-12] MEDS ORDERED: Warfarin TAB(*) 5 MG PO ONE (17:00)
[2019-09-12] MEDS: Atorvastatin* 20 MG TAB PO SCH (17:08)
[2019-09-12] MEDS: Heparin DRIP 25,000 UNITS(*) 25,000 UNITS/500 ML BAG IV SCH (19:20)
[2019-09-12] MEDS: Ferric Gluconate IV* 125 MG in NS 0.9% 100 ML* 100 ML IVPB SCH (19:49)
[2019-09-12] MEDS: guaiFENesin ER TAB 600 MG PO SCH (21:27)
[2019-09-13 06:45] LABS: INR 1.14 (0.82-1.09)
[2019-09-13 06:47] LABS: Hematocrit 25 % (42-52); Hemoglobin 8.1 g/dL (14.0-18.0); Mean Corpuscular HGB Conc 33 g/dL (31-36); Mean Corpuscular Hemoglobin 29 pg (27-31); Mean Corpuscular Volume 88 fL (80-94); Mean Platelet Volume 6.7 fL (7.4-10.4); Platelet Count 397 10^3/uL (150-450); Red Blood Count 2.81 10^6 /uL (4.18-5.48); Red Cell Distribution Width 22 % (10-15); White Blood Count 9.1 10^3/uL (3.5-10.8)
[2019-09-13 06:50] LABS: Calcium 8.5 mg/dL (8.6-10.3); EGFR African American 98.5 (>60); EGFR Non-African American 81.4 (>60); Magnesium 1.9 mg/dL (1.9-2.7); Potassium 3.7 mmol/L (3.5-5.0)
[2019-09-13] MEDS: Albuterol/Ipratropium NEB.SOL* Albuterol 2.5 MG/Ipratropium 0.5 MG 3 ML INH SCH ×2 (07:11→19:30)
[2019-09-13] MEDS: Tiotropium Brom/Olodaterol MDI INH SCH ×2 (07:11→19:45)
[2019-09-13] MEDS: Isosorbide Mononitrate ER TAB* 30 MG PO SCH (08:54)
[2019-09-13] MEDS: Pantoprazole TAB * 40 MG TAB PO SCH ×2 (08:54→19:54)
[2019-09-13] MEDS: Hydrocodone/Acetamin 10/325 1 TAB PO PRN (08:55)
[2019-09-13] MEDS: Metoprolol Tartrate TAB* 50 mg PO SCH ×2 (08:55→19:54)
[2019-09-13] MEDS: Potassium Chlor TAB* 10 MEQ TAB.ER PO SCH (08:55)
[2019-09-13] MEDS: guaiFENesin ER TAB 600 MG PO SCH ×2 (08:56→19:54)
--- NOTE | 2019-09-13 10:18 | PN ---
Subjective Date of Service: 09/13/19 Interval History: Pt feels well, no recent BM. able to eat small amounts of food due to early satiety, denies abd pain Objective Active Medications: Hydrocodone Bitart/Acetaminophen ([place] 10/325 (Nf)) 1 tab PO Q6H PRN PRN Reason: PAIN - SEVERE Last Admin: 09/13/19 08:55 Dose: 1 tab Albuterol/Ipratropium (Duoneb (Albuterol 2.5 Mg/Ipratropium 0.5 Mg)) 1 neb INH BID [facility] Last Admin: 09/13/19 07:11 Dose: 1 neb Atorvastatin Calcium (Lipitor*) 20 mg PO 1700 [facility] Last Admin: 09/12/19 17:08 Dose: 20 mg Guaifenesin (Mucinex*) 600 mg PO BID [facility] Last Admin: 09/13/19 08:56 Dose: 600 mg Heparin Sodium (Porcine) (Heparin Vial(*)) 0 units IV .PER PROTOCOL [facility] Last Admin: 09/11/19 12:12 Dose: 5,200 units Heparin Sodium/Dextrose (Heparin Drip 25,000 Units(*)) 25,000 units in 500 mls @ 0 mls/hr IV PER RATE [facility]; Protocol Last Admin: 09/12/19 19:20 Dose: 14 mls/hr Ferric Sodium Gluconate Complex 125 mg/ Sodium Chloride 110 mls @ 110 mls/hr IVPB DAILY@1700 [facility] Last Admin: 09/12/19 19:49 Dose: 110 mls/hr Isosorbide Mononitrate (Imdur Er Tab*) 90 mg PO 0900 [facility] Last Admin: 09/13/19 08:54 Dose: 90 mg Lorazepam (Ativan Tab(*)) 0.5 mg PO Q8H PRN PRN Reason: ANXIETY Metoprolol Tartrate (Lopressor Tab*) 50 mg PO BID@0900,2100 [facility] Last Admin: 09/13/19 08:55 Dose: 50 mg Pantoprazole Sodium (Protonix Tab*) 40 mg PO BID [facility] Last Admin: 09/13/19 08:54 Dose: 40 mg Pharmacy Profile Note (Coumadin Per Pharmacy*) 1 note FOLLOW UP .PER PHARMACY PROTOC [facility]; Protocol Potassium Chloride (Klor Con Er Tab*) 10 meq PO DAILY [facility] Last Admin: 12/28/19 08:55 Dose: 10 meq Prednisone (Deltasone Tab*) 10 mg PO DAILY [facility] Last Admin: 09/13/19 08:54 Dose: 10 mg Tiotropium [place]/Olodaterol (Stiolto Respimat Inh [place] (60 Puff)) 1 puff INH BID [facility] Last Admin: 09/13/19 07:11 Dose: 1 puff Vital Signs - 8 hr 09/13/19 09/13/19 09/13/19 03:15 07:13 07:15 Temperature 97.5 F 97.4 F Pulse Rate 77 78 78 Respiratory 20 16 18 Rate Blood Pressure 115/67 132/62 (mmHg) O2 Sat by Pulse 98 98 100 Oximetry 09/13/19 08:55 Temperature Pulse Rate Respiratory 20 Rate Blood Pressure (mmHg) O2 Sat by Pulse Oximetry Oxygen Devices in Use Now: Nasal Cannula Appearance: 79 yo F in nAD, AAOx3 Eyes: No Scleral Icterus, PERRLA Ears/Nose/Mouth/Throat: NL Teeth, Lips, Gums, Mucous Membranes Moist Neck: NL Appearance and Movements; NL JVP, Trachea Midline Respiratory: Symmetrical Chest Expansion and Respiratory Effort, - - crackles and scant wheezes at b/l bases Cardiovascular: NL Sounds; No Murmurs; No JVD Abdominal: NL Sounds; No Tenderness; No Distention Lymphatic: No Cervical Adenopathy Extremities: No Edema, No Clubbing, Cyanosis Skin: No Rash or Ulcers, No Nodules or Sclerosis Neurological: Alert and Oriented x 3, NL Muscle Strength and Tone Result Diagrams: 09/13/19 06:03 09/13/19 06:03 Microbiology and Other Data: Microbiology 09/07/19 17:35 Stool Occult Blood (MARI) - Final Stool Assess/Plan/Problems-Billing Assessment: 79M with afib and PE on Xarelto, COPD on home O2, HTN, GERD, PVD, and history of recent GIB, re-presents with rectal bleeding. Recent endoscopy negative, capsule negative. - Patient Problems (1) GI bleed Comment: EGD with gastritis and c-scope with polyps and AVM, diverticulosis, and hemorrhoids. Capsule without etiology. GI thinks bleed was due to polyp removal at [facility]. - cont home pantoprazole PO bid - cont trial on heparin gtt and monitor closely for bleed - can DC on warfarin once INR therapeutic( which has lower GI bleed risk) (2) Atrial fibrillation Comment: - Continue metoprolol - restarted heparin gtt on 09/11/19 -im regular rhythm today (3) CAD (coronary artery disease) Comment: - cont metoprolol, Imdur, atorvastatin - hold aspirin due to GI bleed -trop 0.25 on 09.10.19-lower than prior, may be pt's baseline, no evidence of ACS (4) COPD (chronic obstructive pulmonary disease) Comment: - cont home Spiriva, prednisone 10mg daily (steroid dependent at home) - cont nebs prn -on home 02 at 2-3L due to chronic hypoxemic resp failure (5) HTN (hypertension) Comment: - hold home amlodipine, BPs normal (6) Pulmonary embolism Comment: Recent submassive PE requiring ICU stay - appreciate Dr. Viviana caban - trialing heparin gtt, starting morning of 09/11, can DC on warfarin if no bleed on therapeutic INR (7) DVT prophylaxis Comment: - scds, ambulate
[2019-09-13] MEDS: Heparin VIAL(*) 5000 UNITS/ML VIAL (FIVE THOUSAND) IV SCH (12:08)
[2019-09-13] MEDS ORDERED: Warfarin TAB(*) 5 MG PO ONE (17:00)
[2019-09-13] MEDS: Ferric Gluconate IV* 125 MG in NS 0.9% 100 ML* 100 ML IVPB SCH (17:35)
[2019-09-13] MEDS: Atorvastatin* 20 MG TAB PO SCH (17:35)
[2019-09-14 07:46] LABS: INR 1.4 (0.82-1.09)
[2019-09-14] MEDS: Tiotropium Brom/Olodaterol MDI INH SCH ×2 (08:23→20:17)
[2019-09-14] MEDS: Albuterol/Ipratropium NEB.SOL* Albuterol 2.5 MG/Ipratropium 0.5 MG 3 ML INH SCH ×2 (08:23→20:17)
[2019-09-14 08:43] LABS: Hematocrit 26 % (42-52); Hemoglobin 8.7 g/dL (14.0-18.0)
[2019-09-14] MEDS: Potassium Chlor TAB* 10 MEQ TAB.ER PO SCH (09:01)
[2019-09-14] MEDS: guaiFENesin ER TAB 600 MG PO SCH ×2 (09:01→20:04)
[2019-09-14] MEDS: Metoprolol Tartrate TAB* 50 mg PO SCH ×2 (09:02→20:04)
[2019-09-14] MEDS: Isosorbide Mononitrate ER TAB* 30 MG PO SCH (09:02)
[2019-09-14] MEDS: Hydrocodone/Acetamin 10/325 1 TAB PO PRN ×2 (09:09→15:36)
[2019-09-14] MEDS: Pantoprazole TAB * 40 MG TAB PO SCH ×2 (09:11→20:04)
--- NOTE | 2019-09-14 09:30 | PN ---
Subjective Date of Service: 09/14/19 Interval History: Pt feels well, good appetite today. Had a small (non bloody) BM last night Objective Active Medications: Hydrocodone Bitart/Acetaminophen ([place] 10/325 (Nf)) 1 tab PO Q6H PRN PRN Reason: PAIN - SEVERE Last Admin: 09/14/19 09:09 Dose: 1 tab Albuterol/Ipratropium (Duoneb (Albuterol 2.5 Mg/Ipratropium 0.5 Mg)) 1 neb INH BID [facility] Last Admin: 09/14/19 08:23 Dose: 1 neb Atorvastatin Calcium (Lipitor*) 20 mg PO 1700 [facility] Last Admin: 09/13/19 17:35 Dose: 20 mg Guaifenesin (Mucinex*) 600 mg PO BID [facility] Last Admin: 09/14/19 09:01 Dose: 600 mg Heparin Sodium (Porcine) (Heparin Vial(*)) 0 units IV .PER PROTOCOL [facility] Last Admin: 09/13/19 12:08 Dose: 2,600 units Heparin Sodium/Dextrose (Heparin Drip 25,000 Units(*)) 25,000 units in 500 mls @ 0 mls/hr IV PER RATE [facility]; Protocol Last Admin: 09/12/19 19:20 Dose: 14 mls/hr Ferric Sodium Gluconate Complex 125 mg/ Sodium Chloride 110 mls @ 110 mls/hr IVPB DAILY@1700 [facility] Last Admin: 09/13/19 17:35 Dose: 110 mls/hr Isosorbide Mononitrate (Imdur Er Tab*) 90 mg PO 0900 [facility] Last Admin: 09/14/19 09:02 Dose: 90 mg Lorazepam (Ativan Tab(*)) 0.5 mg PO Q8H PRN PRN Reason: ANXIETY Metoprolol Tartrate (Lopressor Tab*) 50 mg PO BID@0900,2100 [facility] Last Admin: 09/14/19 09:02 Dose: 50 mg Pantoprazole Sodium (Protonix Tab*) 40 mg PO BID [facility] Last Admin: 09/14/19 09:11 Dose: 40 mg Pharmacy Profile Note (Coumadin Per Pharmacy*) 1 note FOLLOW UP .PER PHARMACY PROTOC [facility]; Protocol Potassium Chloride (Klor Con Er Tab*) 10 meq PO DAILY [facility] Last Admin: 09/14/19 09:01 Dose: 10 meq Prednisone (Deltasone Tab*) 10 mg PO DAILY [facility] Last Admin: 09/14/19 09:01 Dose: 10 mg Tiotropium [place]/Olodaterol (Stiolto Respimat Inh [place] (60 Puff)) 1 puff INH BID [facility] Last Admin: 09/14/19 08:23 Dose: 1 puff Vital Signs - 8 hr 09/14/19 09/14/19 09/14/19 03:00 07:26 08:26 Temperature 98 F 98.1 F Pulse Rate 80 78 71 Respiratory 18 20 16 Rate Blood Pressure 124/60 123/57 (mmHg) O2 Sat by Pulse 94 96 93 Oximetry 09/14/19 09:09 Temperature Pulse Rate Respiratory 18 Rate Blood Pressure (mmHg) O2 Sat by Pulse Oximetry Oxygen Devices in Use Now: Nasal Cannula Appearance: 79 yo m in nAD, AAOx3 Eyes: No Scleral Icterus, PERRLA Ears/Nose/Mouth/Throat: NL Teeth, Lips, Gums, Mucous Membranes Moist Neck: NL Appearance and Movements; NL JVP, Trachea Midline Respiratory: Symmetrical Chest Expansion and Respiratory Effort, Clear to Auscultation Cardiovascular: NL Sounds; No Murmurs; No JVD, RRR Abdominal: NL Sounds; No Tenderness; No Distention Lymphatic: No Cervical Adenopathy Extremities: No Edema, No Clubbing, Cyanosis Skin: No Rash or Ulcers, No Nodules or Sclerosis Neurological: Alert and Oriented x 3, NL Muscle Strength and Tone Result Diagrams: 09/14/19 07:33 09/13/19 06:03 Microbiology and Other Data: Microbiology 09/07/19 17:35 Stool Occult Blood (MARI) - Final Stool Assess/Plan/Problems-Billing Assessment: 79M with afib and PE on Xarelto, COPD on home O2, HTN, GERD, PVD, and history of recent GIB, re-presents with rectal bleeding. Recent endoscopy negative, capsule negative. - Patient Problems (1) GI bleed Comment: EGD with gastritis and c-scope with polyps and AVM, diverticulosis, and hemorrhoids. Capsule without etiology. GI thinks bleed was due to polyp removal at [facility]. - cont home pantoprazole PO bid - cont trial on heparin gtt and monitor closely for bleed - can DC on warfarin once INR therapeutic( which has lower GI bleed risk) (2) Atrial fibrillation Comment: - Continue metoprolol - restarted heparin gtt on 09/11/19 -in regular rhythm today (3) CAD (coronary artery disease) Comment: - cont metoprolol, Imdur, atorvastatin - hold aspirin due to GI bleed -trop 0.25 on 09.10.19-lower than prior, may be pt's baseline, no evidence of ACS (4) COPD (chronic obstructive pulmonary disease) Comment: - cont home Spiriva, prednisone 10mg daily (steroid dependent at home) - cont nebs prn -on home 02 at 2-3L due to chronic hypoxemic resp failure (5) HTN (hypertension) Comment: - hold home amlodipine, BPs normal (6) Pulmonary embolism Comment: Recent submassive PE requiring ICU stay - appreciate Dr. Viviana caban - trialing heparin gtt, starting morning of 09/11, can DC on warfarin if no bleed on therapeutic INR (7) DVT prophylaxis Comment: - scds, ambulate
[2019-09-14] MEDS: Heparin DRIP 25,000 UNITS(*) 25,000 UNITS/500 ML BAG IV SCH (13:57)
[2019-09-14] MEDS: Heparin VIAL(*) 5000 UNITS/ML VIAL (FIVE THOUSAND) IV SCH (14:00)
[2019-09-14] MEDS: Atorvastatin* 20 MG TAB PO SCH (15:36)
[2019-09-14] MEDS ORDERED: Warfarin TAB(*) 5 MG PO ONE (17:00)
[2019-09-14] MEDS: Ferric Gluconate IV* 125 MG in NS 0.9% 100 ML* 100 ML IVPB SCH (17:39)
[2019-09-15 05:01] LABS: Hematocrit 26 % (42-52); Hemoglobin 8.4 g/dL (14.0-18.0); Mean Corpuscular HGB Conc 33 g/dL (31-36); Mean Corpuscular Hemoglobin 30 pg (27-31); Mean Corpuscular Volume 90 fL (80-94); Mean Platelet Volume 6.4 fL (7.4-10.4); Platelet Count 389 10^3/uL (150-450); Red Blood Count 2.86 10^6 /uL (4.18-5.48); Red Cell Distribution Width 23 % (10-15); White Blood Count 9.6 10^3/uL (3.5-10.8)
[2019-09-15 05:02] LABS: INR 2.4 (0.82-1.09)
[2019-09-15 05:16] LABS: BUN/Creatinine Ratio 10.6 (8-20); Calcium 8.8 mg/dL (8.6-10.3); EGFR African American 83.4 (>60); EGFR Non-African American 68.9 (>60); Potassium 3.9 mmol/L (3.5-5.0)
[2019-09-15 05:20] LABS: ABS Basophils 0.1 10^3/ul (0-0.2); ABS Eosinophils 0.1 10^3/ul (0-0.6); ABS Monocytes 1.6 10^3/ul (0-0.8); ABS Neutrophils 5.9 10^3/ul (1.5-7.7); Eosinophil % 0.6 %; Lymphocyte % 20.4 %; Nucleated Red Blood Cells % 0.2
[2019-09-15 05:21] LABS: Polychromasia 1+
[2019-09-15] MEDS: Tiotropium Brom/Olodaterol MDI INH SCH ×2 (07:29→19:44)
[2019-09-15] MEDS: Albuterol/Ipratropium NEB.SOL* Albuterol 2.5 MG/Ipratropium 0.5 MG 3 ML INH SCH ×2 (07:29→19:34)
[2019-09-15] MEDS: Isosorbide Mononitrate ER TAB* 30 MG PO SCH (08:22)
[2019-09-15] MEDS: Metoprolol Tartrate TAB* 50 mg PO SCH ×2 (08:22→22:45)
[2019-09-15] MEDS: Pantoprazole TAB * 40 MG TAB PO SCH ×2 (08:23→22:45)
[2019-09-15] MEDS: Hydrocodone/Acetamin 10/325 1 TAB PO PRN (08:24)
[2019-09-15] MEDS: guaiFENesin ER TAB 600 MG PO SCH ×2 (08:24→22:45)
[2019-09-15] MEDS: Potassium Chlor TAB* 10 MEQ TAB.ER PO SCH (08:24)
--- NOTE | 2019-09-15 12:58 | PN ---
Subjective Date of Service: 09/15/19 Interval History: Pt feels well, had well formed BM (no blood). Good appetite, denies abd pain Objective Active Medications: Hydrocodone Bitart/Acetaminophen ([place] 10/325 (Nf)) 1 tab PO Q6H PRN PRN Reason: PAIN - SEVERE Last Admin: 09/15/19 08:24 Dose: 1 tab Albuterol/Ipratropium (Duoneb (Albuterol 2.5 Mg/Ipratropium 0.5 Mg)) 1 neb INH BID [facility] Last Admin: 09/15/19 07:29 Dose: 1 neb Atorvastatin Calcium (Lipitor*) 20 mg PO 1700 [facility] Last Admin: 09/14/19 15:36 Dose: 20 mg Guaifenesin (Mucinex*) 600 mg PO BID [facility] Last Admin: 09/15/19 08:24 Dose: 600 mg Heparin Sodium (Porcine) (Heparin Vial(*)) 0 units IV .PER PROTOCOL [facility] Last Admin: 09/14/19 14:00 Dose: 2,600 units Heparin Sodium/Dextrose (Heparin Drip 25,000 Units(*)) 25,000 units in 500 mls @ 0 mls/hr IV PER RATE [facility]; Protocol Last Admin: 09/14/19 13:57 Dose: 14 mls/hr Ferric Sodium Gluconate Complex 125 mg/ Sodium Chloride 110 mls @ 110 mls/hr IVPB DAILY@1700 [facility] Last Admin: 09/14/19 17:39 Dose: 110 mls/hr Isosorbide Mononitrate (Imdur Er Tab*) 90 mg PO 0900 [facility] Last Admin: 09/15/19 08:22 Dose: 90 mg Lorazepam (Ativan Tab(*)) 0.5 mg PO Q8H PRN PRN Reason: ANXIETY Metoprolol Tartrate (Lopressor Tab*) 50 mg PO BID@0900,2100 [facility] Last Admin: 09/15/19 08:22 Dose: 50 mg Pantoprazole Sodium (Protonix Tab*) 40 mg PO BID [facility] Last Admin: 09/15/19 08:23 Dose: 40 mg Pharmacy Profile Note (Coumadin Per Pharmacy*) 1 note FOLLOW UP .PER PHARMACY PROTOC [facility]; Protocol Potassium Chloride (Klor Con Er Tab*) 10 meq PO DAILY [facility] Last Admin: 09/15/19 08:24 Dose: 10 meq Prednisone (Deltasone Tab*) 10 mg PO DAILY [facility] Last Admin: 09/15/19 08:23 Dose: 10 mg Tiotropium [place]/Olodaterol (Stiolto Respimat Inh [place] (60 Puff)) 1 puff INH BID [facility] Last Admin: 09/15/19 07:29 Dose: 1 puff Vital Signs - 8 hr 09/15/19 09/15/19 09/15/19 07:31 07:43 08:00 Temperature 98.7 F Pulse Rate 70 72 Respiratory 16 20 20 Rate Blood Pressure 150/65 (mmHg) O2 Sat by Pulse 92 94 94 Oximetry 09/15/19 09/15/19 09/15/19 08:24 11:04 12:27 Temperature 98.0 F Pulse Rate 73 Respiratory 20 20 23 Rate Blood Pressure 135/54 (mmHg) O2 Sat by Pulse 97 Oximetry Oxygen Devices in Use Now: Nasal Cannula Appearance: 79 yo m in nAD, aAOx3 Eyes: No Scleral Icterus, PERRLA Ears/Nose/Mouth/Throat: NL Teeth, Lips, Gums, Mucous Membranes Moist Neck: NL Appearance and Movements; NL JVP, Trachea Midline Respiratory: Symmetrical Chest Expansion and Respiratory Effort, Clear to Auscultation Cardiovascular: NL Sounds; No Murmurs; No JVD, RRR Abdominal: NL Sounds; No Tenderness; No Distention Lymphatic: No Cervical Adenopathy Extremities: No Edema Skin: No Nodules or Sclerosis Neurological: Alert and Oriented x 3, NL Muscle Strength and Tone Result Diagrams: 09/15/19 04:50 09/15/19 04:50 Microbiology and Other Data: Microbiology 09/07/19 17:35 Stool Occult Blood (MARI) - Final Stool Assess/Plan/Problems-Billing Assessment: 79M with afib and PE on Xarelto, COPD on home O2, HTN, GERD, PVD, and history of recent GIB, re-presents with rectal bleeding. Recent endoscopy negative, capsule negative. - Patient Problems (1) GI bleed Comment: EGD with gastritis and c-scope with polyps and AVM, diverticulosis, and hemorrhoids. Capsule without etiology. GI thinks bleed was due to polyp removal at [facility]. - cont home pantoprazole PO bid - cont heparin gtt and monitor closely for bleed - INR 2.4 today, if INR>2 tomorrow can be discharged on coumadin. (2) Atrial fibrillation Comment: - Continue metoprolol - restarted heparin gtt on 09/11/19 -in regular rhythm today (3) CAD (coronary artery disease) Comment: - cont metoprolol, Imdur, atorvastatin - hold aspirin due to GI bleed -trop 0.25 on 09.10.19-lower than prior, may be pt's baseline, no evidence of ACS (4) COPD (chronic obstructive pulmonary disease) Comment: - cont home Spiriva, prednisone 10mg daily (steroid dependent at home) - cont nebs prn -on home 02 at 2-3L due to chronic hypoxemic resp failure (5) HTN (hypertension) Comment: - hold home amlodipine, BPs normal (6) Pulmonary embolism Comment: Recent submassive PE requiring ICU stay - appreciate Dr. Viviana caban - trialing heparin gtt, starting morning of 09/11, can DC on warfarin if no bleed on therapeutic INR (7) DVT prophylaxis Comment: - scds, ambulate Status and Disposition: inpatient
[2019-09-15] MEDS: Atorvastatin* 20 MG TAB PO SCH (17:00)
[2019-09-15] MEDS ORDERED: Warfarin TAB(*) 4 MG PO ONE (17:00)
[2019-09-15] MEDS: Ferric Gluconate IV* 125 MG in NS 0.9% 100 ML* 100 ML IVPB SCH (17:31)
[2019-09-16] MEDS: Heparin DRIP 25,000 UNITS(*) 25,000 UNITS/500 ML BAG IV SCH (06:08)
[2019-09-16 06:53] LABS: INR 2.93 (0.82-1.09)
[2019-09-16] MEDS: Albuterol/Ipratropium NEB.SOL* Albuterol 2.5 MG/Ipratropium 0.5 MG 3 ML INH SCH (07:35)
[2019-09-16] MEDS: Tiotropium Brom/Olodaterol MDI INH SCH (07:35)
[2019-09-16 07:46] LABS: ABS Basophils 0.1 10^3/ul (0-0.2); ABS Eosinophils 0.1 10^3/ul (0-0.6); ABS Monocytes 1.6 10^3/ul (0-0.8); ABS Neutrophils 5.8 10^3/ul (1.5-7.7); Hematocrit 27 % (42-52); Hemoglobin 8.9 g/dL (14.0-18.0); Lymphocyte % 20.8 %; Mean Corpuscular HGB Conc 33 g/dL (31-36); Mean Corpuscular Hemoglobin 30 pg (27-31); Mean Corpuscular Volume 90 fL (80-94); Mean Platelet Volume 6.5 fL (7.4-10.4); Nucleated Red Blood Cells % 0.2; Platelet Count 366 10^3/uL (150-450); Red Blood Count 2.95 10^6 /uL (4.18-5.48); Red Cell Distribution Width 23 % (10-15); White Blood Count 9.6 10^3/uL (3.5-10.8)
[2019-09-16] MEDS: Hydrocodone/Acetamin 10/325 1 TAB PO PRN (08:13)
[2019-09-16] MEDS: Pantoprazole TAB * 40 MG TAB PO SCH (08:13)
[2019-09-16] MEDS: Metoprolol Tartrate TAB* 50 mg PO SCH (08:13)
[2019-09-16] MEDS: guaiFENesin ER TAB 600 MG PO SCH (08:13)
[2019-09-16] MEDS: Isosorbide Mononitrate ER TAB* 30 MG PO SCH (08:14)
[2019-09-16] MEDS: Potassium Chlor TAB* 10 MEQ TAB.ER PO SCH (08:14)
[2019-09-16 13:30] VITALS: BP 106/66
--- NOTE | 2019-09-17 01:51 | DS ---
CC: Dr. Shi; Dr. Valadez; Dr. Martinez; Dr. Michelle; Dr. Stover; Mauricio Mann NP. * DISCHARGE SUMMARY: DATE OF ADMISSION: 09/07/19 DATE OF DISCHARGE: 09/16/19 PRIMARY CARE PROVIDER: Mauricio Mann NP who works at [facility] with Dr. Stover DISPOSITION ON DISCHARGE: Home. CONDITION ON DISCHARGE: Stable. DISCHARGE DIAGNOSES: Acute gastrointestinal bleed with no clearly identified source in patient who was on Xarelto and his recent polypectomy. SECONDARY DIAGNOSES: 1. History of recent submassive pulmonary embolism. 2. History of chronic atrial fibrillation, on anticoagulation. 3. Peripheral vascular disease, status post procedures performed in bilateral lower extremities in April. 4. Chronic obstructive pulmonary disease, on chronic home O2 at 2 to 3 L. 5. Gastroesophageal reflux disease 6. Hypertension. 7. Hyperlipidemia. 8. 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 9. 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 10. Recent colonoscopy and esophagogastroduodenoscopy at [facility] at the beginning of August 2019 for gastrointestinal bleed. MEDICATIONS AT DISCHARGE: Include: 1. Combivent Respimat 1 inhalation b.i.d. 2. Furosemide 20 mg daily. 3. Acetaminophen on a p.r.n. basis. 4. Ativan 0.5 mg every 8 hours p.r.n. 5. Potassium chloride 10 mEq daily. 6. Simvastatin 40 mg daily. 7. Stiolto 1 inhalation b.i.d. 8. Simvastatin 40 mg daily. 9. Amlodipine 5 mg daily. 10. Ferrous sulfate 325 mg b.i.d. 11. Mucinex mg b.i.d. p.r.n. 12. Imdur ER 90 mg daily. 13. Lopressor 50 mg b.i.d. 14. Protonix 40 mg b.i.d. 15. Coumadin 3 mg daily. 16. Prednisone 10 mg daily. The patient's INR today on the day of discharge is 2.93. The patient needs to check his INR on 09/19/19 and follow up with Mauricio Mann NP at Dr. Stover's office on the same day. Further management of the patient's anticoagulation as per Mauricio Mann NP. RECOMMENDATION FOR FOLLOWUP APPOINTMENT: The patient is scheduled for a followup appointment with Mauricio Mann NP on 09/19/19 in the New Year at 11 a.m., that is on the same day the patient is to draw an INR at Dr. Stover's office. The patient recommended to follow up with Dr. Jesus Shi in 1 to 2 weeks. The patient is recommended to follow up with Dr. Leland Michelle in 1 month. LABORATORY DATA AND STUDIES PERFORMED DURING THE HOSPITAL STAY: Included INR on 09/16/19 was 2.9. On 09/15/19, sodium of 138, potassium 3.9, chloride 104, carbon dioxide 28, BUN 11, creatinine 1.04. White blood cell count 9.6, hemoglobin of 8.9, hematocrit of 27, platelets of 336. CONSULTATIONS DURING THE HOSPITAL STAY: Included; Dr. Valadez and Dr. Indigo Mon from Gastroenterology, Dr. Michelle from Oncology/Hematology. During the patient's hospital stay, he had 1 unit of packed red blood cell transfusion. Microbiology test included stool for occult blood positive on the day of admission. PROCEDURES DURING THE HOSPITAL STAY: Included capsule endoscopy that was performed on 09/09/19. Impression, "complete capsule endoscopy. No of patient's symptoms of GI bleeding seen on exam. No fresh blood. Possible dilute old blood seen in the ileocecal/cecum. This finding raises some concern for bleeding having been localized in the area of recent colon polypectomy as opposed to small bowel source." HOSPITALIZATION COURSE: Mr. Blade Sanchez is a 79-year-old male who was stated himself over the past 6 months has been in the hospital. He stated that in sometime at the beginning of the summer, he had a hospitalization for pneumonia. He also had vascular interventions to bilateral lower extremities. Subsequently, he developed a DVT and was admitted to our facility in July 2019 for submassive bilateral pulmonary emboli. He also has history of chronic atrial fibrillation and was on anticoagulation. After his first hospitalization in July 2019, he was discharged from this hospital and was doing well, but he noted to have GI bleed and was admitted to [facility] where he had an upper and lower endoscopy. During colonoscopy, a large polyp was removed and he was released from the hospital after an IVC filter placement on 08/24/19. He was off anticoagulation until 08/31/19, was started back on Xarelto at 15 b.i.d. on that day. On 09/15/19, he started bleeding again and he came to our hospital for evaluation. Here, he was transfused 1 unit of packed red blood cells. Our gastroenterologists were consulted and capsule endoscopy was performed, which showed no evidence of acute bleeding and possibility of old blood in the colon. As per Dr. Martinez's recommendation , the patient was to be started on anticoagulation on 09/11/19 with heparin drip. We also consulted Dr. Michelle. The chief technologist who stated that the safest at this point for the patient is anticoagulation with Coumadin. The patient was placed on heparin drip on 09/11/19 and continued on the drip until . At that point, he had 2 days of INR of above 2 and his heparin drip was discontinued. Dr. Martinez also recommended possibility of repeat colonoscopy if patient's bleeding recurs. The patient's bleeding did not recur during his hospital stay. His hemoglobin remained stable throughout his heparinization and introduction of Coumadin. The patient was educated about his new Coumadin medication by our guest services coordinator. He is planned to have the next INR drawn on 09/19/19. He is also following up with his medical provider on the same day. Please note that patient initially was on Coumadin 5 mg daily for a couple of days then 4 mg daily for a day and down to 3 mg daily on the day of discharge. Throughout the patient's hospital stay, the patient was continued on his chronic prednisone that he takes for his COPD since he is steroid dependent. He also is on 2 to 3 L of oxygen at home which is also chronic, which are going to be continued by the time of discharge. The patient is ready to be discharged home today with recommendation to once again follow up with his PCP as scheduled on 09/19/[address] Shi in 1 to [address] Michelle in another month. PHYSICAL EXAM AT THE TIME OF DISCHARGE: Blood pressure of 142/55, heart rate of 74 and regular, respiratory rate 18, oxygen saturation 99% on 1.5 L of oxygen on nasal cannula, temperature 97.9. General: The patient is a very pleasant 79-year-old male who is not in acute distress. The patient is alert and oriented x3. HEENT: Head atraumatic and normocephalic. Eyes: Pupils are equal and reactive to light and accommodation. Oropharynx clear, mucosa moist. Neck: Supple. No JVD. No bruit bilaterally. Cardiovascular: Irregularly regular rhythm. No murmur. Respiratory: Scant rhonchi in left upper lobe that cleared with cough. Abdomen: Soft and nontender. Bowel sounds are present in all 4 quadrants. Extremities: There is no edema. Pulses are +2 bilaterally. No clubbing or cyanosis. Neuro Evaluation: Speech is clear. Cranial nerves II through XII intact grossly intact. Motor strength is 5/5 bilaterally. Please note that this is a short summary of the patient's prolonged and complicated hospitalization. Please refer to further medical records for details. TIME SPENT: Approximately 50 minutes were spent on this patient's discharge. [id number]/CPS #: [id number] MTDD
== END 2019-09-16 13:00 | disposition home health service (06) | DRG 378 ==
LOC: ED 17:32 → MED 18:48
PROVIDERS: ADMIT Internal Medicine; ATTEND Internal Medicine
PROC: 0DJ07ZZ Inspection of Upper Intestinal Tract, Via Natural or Artificial Opening (ICD-10-PCS; 2019-09-09)
PROC: 30233N1 Transfusion of Nonautologous Red Blood Cells into Peripheral Vein, Percutaneous Approach (ICD-10-PCS; principal; 2019-09-10)
DX: K92.1 Melena (principal); I48.20 Chronic atrial fibrillation, unspecified; I73.9 Peripheral vascular disease, unspecified; J44.9 Chronic obstructive pulmonary disease, unspecified; Z99.81 Dependence on supplemental oxygen; K21.9 Gastro-esophageal reflux disease without esophagitis; D50.9 Iron deficiency anemia, unspecified; E87.6 Hypokalemia; I10 Essential (primary) hypertension; I25.10 Atherosclerotic heart disease of native coronary artery without angina pectoris; E78.5 Hyperlipidemia, unspecified; M54.5 Low back pain; Z86.718 Personal history of other venous thrombosis and embolism; Z79.01 Long term (current) use of anticoagulants; Z86.711 Personal history of pulmonary embolism; Z79.02 Long term (current) use of antithrombotics/antiplatelets; Z79.82 Long term (current) use of aspirin; Z79.52 Long term (current) use of systemic steroids; Z79.899 Other long term (current) drug therapy; Z88.2 Allergy status to sulfonamides; Z82.49 Family history of ischemic heart disease and other diseases of the circulatory system; Z80.3 Family history of malignant neoplasm of breast; Z87.891 Personal history of nicotine dependence
CPT/HCPCS: 36415; 80048; 80053; 82272; 82728; 83540; 83550; 83615; 83735; 84100; 84484; 85014; 85018; 85025; 85027; 85045; 85610; 85730; 86850; 86900; 86901; 86922; 93005; 94640; 99284; A9270-GY; G8978-GP-CH; G8979-GP-CH; G8980-GP-CH; J1644; J2916; J3475; J3480; J3535; J7512; P9040

== ENCOUNTER 2023-09-25 14:28 | Inpatient (IN) ==
[2023-09-25] MEDS: methylPREDNISolone SOD SUCC 125 mg 2 ML VIAL IV ONE (15:21)
[2023-09-25 15:23] LABS: Albumin 4.3 g/dL (3.2-5.2); Albumin/Globulin Ratio 1.3 (1-3); Calcium 9.6 mg/dL (8.6-10.3); Creatinine, Serum 1.05 mg/dL (0.67-1.17); Globulin 3.4 g/dL (2-4); Potassium 4.4 mmol/L (3.5-5.0); Total Bilirubin 2.4 mg/dL (0.2-1.0); Total Protein 7.7 g/dL (6.4-8.9); eGFR CKD-EPI 70.4 (>60)
[2023-09-25 15:42] LABS: ABS Eosinophils 0.2 10^3/uL (0.0-0.5); ABS Lymphocytes 0.6 10^3/uL (1.0-4.8); ABS Monocytes 1.2 10^3/uL (0.0-1.1); ABS Neutrophils 10.7 10^3/uL (1.5-7.6); Eosinophil % 1.4 %; Hematocrit 52.6 % (38-53); Hemoglobin 17.4 g/dL (13.2-16.3); Lymphocyte % 4.8 %; Mean Corpuscular Hemoglobin 31.8 pg (27-33); Mean Corpuscular Hgb Conc 33.1 g/dL (31-36); Mean Corpuscular Volume 96.1 fL (80-97); Mean Platelet Volume 7.4 fL (7.5-11.2); Platelet Count 207 10^3/uL (150-450); Red Blood Count 5.47 10^6/uL (4.06-5.63); Red Cell Distribution Width 14.1 % (12-17); White Blood Count 12.7 10^3/uL (3.6-10.2)
[2023-09-25 16:09] LABS: INR 2.92 (0.83-1.13)
[2023-09-25 16:31] LABS: High Sensitivity Troponin 1 Hr 27 pg/mL (<20)
[2023-09-25] MEDS: cefTRIAXone 1 gm/50 mL D5W 1 GM/50 ML BAG IV ONE (16:34)
[2023-09-25] MEDS: Azithromycin 500 mg/250 ml NS 500 MG/250 ML BAG IVPB ONE (17:20)
[2023-09-25] MEDS: Albuterol/Ipratropium NEB.SOL (2.5/0.5 MG) 3 ML NEB.SOLN INH SCH (19:38)
[2023-09-25] MEDS ORDERED: Warfarin per PHARMACY **NOTE FOLLOW UP SCH (20:00)
[2023-09-25] MEDS: Albuterol/Ipratropium NEB.SOL (2.5/0.5 MG) 3 ML NEB.SOLN INH PRN (23:54)
[2023-09-26 07:09] LABS: Hematocrit 45.2 % (38-53); Hemoglobin 15.3 g/dL (13.2-16.3); Mean Corpuscular Hemoglobin 32.1 pg (27-33); Mean Corpuscular Hgb Conc 33.7 g/dL (31-36); Mean Platelet Volume 7.6 fL (7.5-11.2); Platelet Count 165 10^3/uL (150-450); Red Blood Count 4.76 10^6/uL (4.06-5.63); Red Cell Distribution Width 13.6 % (12-17); White Blood Count 10.9 10^3/uL (3.6-10.2)
[2023-09-26 07:29] LABS: INR 3.13 (0.83-1.13)
[2023-09-26 07:30] LABS: Calcium 8.5 mg/dL (8.6-10.3); Creatinine, Serum 0.96 mg/dL (0.67-1.17); Magnesium 1.6 mg/dL (1.9-2.7); Potassium 4.1 mmol/L (3.5-5.0); eGFR CKD-EPI 78.4 (>60)
[2023-09-26] MEDS: Isosorbide Mononit ER 30mg TAB PO SCH (09:32)
[2023-09-26] MEDS: Potassium Chlor 10 meq TAB PO SCH (09:33)
[2023-09-26] MEDS: Magnesium Sulfate IV 1GM/100ML 1 GM/100 ML BAG IV SCH (10:11)
[2023-09-26] MEDS: NF: BUDESONIDE/GLYCOPYR/FORMOTEROL MDI (NF) INH SCH (10:14)
[2023-09-26] MEDS: Benzocaine/Menthol LOZ MT PRN (14:38)
[2023-09-26] MEDS: cefTRIAXone 1 gm/50 mL D5W 1 GM/50 ML BAG IV SCH (15:52)
[2023-09-26] MEDS: Warfarin DAILY REMINDER **NOTE FOLLOW UP SCH (18:11)
[2023-09-27 07:19] LABS: INR 3.94 (0.83-1.13)
[2023-09-27] MEDS: Mometasone/Formoter 200/5 MDI INH SCH (10:04)
[2023-09-27] MEDS ORDERED: Albuterol/Ipratropium NEB.SOL (2.5/0.5 MG) 3 ML NEB.SOLN INH SCH (11:00)
[2023-09-27] MEDS: Albuterol HFA INHALER 8 gm MDI INH SCH ×2 (12:40→14:33)
[2023-09-27] MEDS ORDERED: Albuterol 2.5mg/3 ml (0.083%) NEB.SOLN INH SCH (15:00)
[2023-09-28] MEDS: Albuterol 2.5mg/3 ml (0.083%) NEB.SOLN INH ONE ×2 (02:50)
[2023-09-28 07:06] LABS: INR 3.11 (0.83-1.13)
[2023-09-28] MEDS: Albuterol 2.5mg/3 ml (0.083%) NEB.SOLN INH SCH (11:31)
[2023-09-28] MEDS: methylPREDNISolone SOD SUCC 40 mg/ml 1 ml VIAL IV SCH (17:23)
[2023-09-29 06:14] LABS: ABS Lymphocytes 0.3 10^3/uL (1.0-4.8); ABS Monocytes 0.5 10^3/uL (0.0-1.1); ABS Neutrophils 7.6 10^3/uL (1.5-7.6); ABS Nucleated RBC 0.01 10^3/ul; Hematocrit 42.3 % (38-53); Hemoglobin 14.4 g/dL (13.2-16.3); Mean Corpuscular Hemoglobin 32.6 pg (27-33); Mean Corpuscular Hgb Conc 33.9 g/dL (31-36); Mean Platelet Volume 7.7 fL (7.5-11.2); Nucleated Red Blood Cells % 0.1 %/100WBC (0.0-0.8); Platelet Count 165 10^3/uL (150-450); Red Blood Count 4.41 10^6/uL (4.06-5.63); Red Cell Distribution Width 14.2 % (12-17); White Blood Count 8.4 10^3/uL (3.6-10.2)
[2023-09-29 06:32] LABS: Albumin 3.3 g/dL (3.2-5.2); Albumin/Globulin Ratio 1.3 (1-3); Calcium 8.8 mg/dL (8.6-10.3); Creatinine, Serum 0.71 mg/dL (0.67-1.17); Globulin 2.6 g/dL (2-4); Potassium 4.4 mmol/L (3.5-5.0); Total Bilirubin 0.9 mg/dL (0.2-1.0); Total Protein 5.9 g/dL (6.4-8.9)
[2023-09-29 06:39] LABS: INR 2.41 (0.83-1.13)
[2023-09-29] MEDS: Albuterol 2.5mg/3 ml (0.083%) NEB.SOLN INH PRN (19:58)
[2023-09-30 08:07] LABS: INR 2.51 (0.83-1.13)
[2023-09-30 11:28] VITALS: BP 169/88
== END 2023-09-30 12:30 | disposition home or self-care (01) | DRG 190 ==
LOC: ED 14:28 → SUATTDRO 17:23 → EDHOLD 17:23 → MEDTELE 21:22
PROVIDERS: ADMIT Internal Medicine; ATTEND Internal Medicine Hematology & Oncology